=== PATIENT | male | born 1955 | race Caucasian/White ===

== ENCOUNTER 2023-11-19 08:13 | Outpatient (OUT) | payer MEDICARE, SELFPAY ==
[2023-11-19 08:25] LABS: Prostate Specific Antigen Dx 3.23 ng/mL (<=4.00)
== END 2023-11-19 08:14 | disposition home or self-care (01) ==
LOC: LAB 11-21 08:14
PROVIDERS: PCP Urology; Visit Provider Urology
DX: N40.1 Benign prostatic hyperplasia with lower urinary tract symptoms (principal); R97.20 Elevated prostate specific antigen [PSA]; R31.0 Gross hematuria; N35.012 Post-traumatic membranous urethral stricture
CPT/HCPCS: 36415; 84153

== ENCOUNTER 2024-02-27 12:21 | Emergency (ER) | payer MEDICARE, SELFPAY ==
[2024-02-27 12:25] VITALS: BP 141/86; PULSE 79; TEMP 36.4; O2SAT 97; BMI 29.0
--- NOTE | 2024-02-27 12:47 | US_ITS ---
[address] [address] Patient Name: MILY GUADALUPE MRN: [id number] date: 1955 Sex: M Assigned Patient Location: ED.MAIN Current Patient Location: Accession/Order Number: [id number] Exam Date: 02/27/2024 13:00 Report Date: 02/27/2024 14:45 At the request of: CATA ASHTON Procedure: US venous doppler UE RT EXAM: US venous doppler UE RT HISTORY: Abscess versus DVT . Abnormal clinical findings in the area of the right antecubital fossa. COMPARISON: None. TECHNIQUE: Duplex compression ultrasound right arm veins, axillary vein lower neck and upper chest veins. FINDINGS: The deep veins including brachial vein, axillary vein, internal jugular vein lower neck and subclavian vein upper chest demonstrate normal color flow without thrombus or occlusion. The arm veins which are accessible are fully compressible. Superficial cephalic and basilic veins also with normal flow and compressibility, no thrombus or occlusion. Normal flow the radial and ulnar veins in the forearm. In the area of clinical concern medial antecubital area adjacent pelvis cephalic vein is a hypoechoic area without vascularity. Measures 1.5 x 0.7 x 1 cm... Could be small hematoma or abscess. There is a complex mass in the right axilla with both hypoechoic cystic areas and echogenic areas. Measures 3.8 x 2.9 x 3.3 cm. No abnormal vascularity. US/US venous doppler UE RT IMPRESSION: 1. Negative for DVT or superficial thrombus right arm, axilla or upper chest. 2. There is a hypoechoic avascular collection in the area of clinical concern adjacent to the basilic vein. Measures 1.5 cm maximum. Question hematoma or pathologic lymph node. Not typical of abscess but not excluded. 3. Complex mass right axilla 3.8 cm maximum. Question whether this is pathologic lymph node. Correlate clinically. Electronically authenticated by: REID JIMENEZ Date: 02/27/2024 14:45
[2024-02-27 14:25] LABS: Basophils Absolute Auto 0.1 10^3/uL (0.0-0.1); Basophils Percent Auto 0.5 % (0.2-2.0); Hematocrit 45.4 % (42.0-54.0); Hemoglobin 15.5 g/dL (14.0-18.0); Immature Granulocytes Abs Auto 0.26 10^3/uL (0.00-0.03); Immature Granulocytes Pct Auto 1.8 % (0.0-0.5); Lymphocytes Absolute Auto 2.7 10^3/uL (1.2-3.8); Lymphocytes Percent Auto 18.4 % (20.5-60.0); Mean Corpuscular HGB Conc 34.1 g/dL (29.9-35.2); Mean Corpuscular Hemoglobin 30.6 pg (25.9-34.0); Mean Corpuscular Volume 89.5 fL (80.0-94.0); Mean Platelet Volume 8.8 fL (9.5-13.5); Monocytes Absolute Auto 1.1 10^3/uL (0.3-0.8); Monocytes Percent Auto 7.1 % (1.7-12.0); Neutrophils Absolute Auto 10.6 10^3/uL (1.4-6.5); Neutrophils Percent Auto 72.2 % (43.0-75.0); Platelet Count 210 10^3/uL (150-450); Red Blood Count 5.07 10^6/uL (4.70-6.10); Red Cell Distribution Width 12.7 % (11.0-15.0); White Blood Count 14.7 10^3/uL (4.0-11.0)
[2024-02-27 14:36] LABS: Alanine Aminotransferase 23 U/L (16-63); Albumin Globulin Ratio 0.8; Albumin Level 3.1 g/dL (3.4-5.0); Alkaline Phosphatase 61 U/L (46-116); Anion Gap 9.8; Aspartate Amino Transferase 11 U/L (15-37); Bilirubin Total 0.5 mg/dL (0.2-1.0); Calcium 8.7 mg/dL (8.5-10.1); Carbon Dioxide 28.4 mmol/L (21.0-32.0); Chloride 102 mmol/L (98-107); Estimated GFR (African America >60 (>=60); Estimated GFR (Non-African Ame >60 (>=60); Globulin 3.8 g/dL; Glucose 95 mg/dL (74-106); Potassium 4.2 mmol/L (3.5-5.1); Sodium 136 mmol/L (136-145); Total Protein 6.9 g/dL (6.4-8.2)
--- NOTE | 2024-02-27 14:52 | XR_ITS ---
The [address] [address] Patient Name: MILY GUADALUPE MRN: [id number] date: 1955 Sex: M Assigned Patient Location: ER Current Patient Location: ER Accession/Order Number: [id number] Exam Date: 02/27/2024 15:02 Report Date: 02/27/2024 15:32 At the request of: CATA ASHTON Procedure: XR chest 1V EXAMINATION: XR chest 1V HISTORY: Right axillary adenopathy COMPARISON: No relevant comparison available. FINDINGS: LUNGS: No significant pulmonary parenchymal abnormalities. VASCULATURE: No increased pulmonary vasculature. PLEURA: No pneumothorax, effusion, or pleural thickening. CARDIAC: No cardiomegaly or cardiac silhouette abnormality. MEDIASTINUM: No visible mass or adenopathy. BONES: No fracture or visible bone lesion. OTHER: Negative. XR/XR chest 1V IMPRESSION: 1. Clear lungs. 2. No appreciable bone or soft tissue abnormality to account for patient's symptoms. Electronically authenticated by: SANDRA ELLIS Date: 02/27/2024 15:32
--- NOTE | 2024-02-27 16:36 | ED.SKABFB1 ---
HPI - Skin/Abscess/Foreign Bdy General Chief complaint: Skin/Abscess/Foreign Body Stated complaint: UPPER EXTRENITY INJURY Time Seen by Provider: 02/27/24 12:47 History of Present Illness HPI narrative: This patient came to emergency room after being seen by his primary care practitioner in the office. Historically this patient had a minor injury to his arm about 10 days ago. He was started on Keflex for what was felt to be a soft tissue infectious process. He finishes course of therapy and the area of redness pain and swelling in his antecubital fossa is getting worse. His practitioner sent him here for further evaluation. He was given a prescription for another course of antibiotics but really did not start it quite yet. He has not been running a fever at home. He did not notice any bleeding or any purulent drainage or discharge from the area but in the antecubital fossa the area of redness and swelling is getting substantially larger. He does have a history of some prostatic hypertrophy but no cancer. He has no other medical problems and is not on any other medications. He is not a diabetic. He has no previous history of abscesses or MRSA infections. Related Data Home Medications ?Medication ?Instructions ?Recorded ?Confirmed finasteride 5 mg tablet 5 mg PO DAILY 02/27/24 02/27/24 sulfamethoxazole 800 1 tab PO BID 02/27/24 02/27/24 mg-trimethoprim 160 mg tablet Allergies Allergy/AdvReac Type Severity Reaction Status Date / Time No Known Drug Allergies Allergy Verified 02/27/24 12:24 Exam Narrative Exam Narrative: Pleasant awake alert signs are stable skin is warm and dry and mucous is are moist and pink there is no pallor or diaphoresis or evidence of anemia. Problem focused examination shows a area of tenderness and swelling erythema approximately 3 x 4 cm in the medial aspect of the antecubital fossa and the distal upper arm. Pulses to that distal extremity are normal and there is no lymphedema or lymphangitis. I palpated his axillary area x 2 and could not palpate any adenitis but he was slightly tender to deep palpation in the axilla. I cannot palpate any adenitis in the supraclavicular or the cervical area. His joint is nontender and there is no joint effusion. There is no pain in the shoulder area. The other opposite extremity is asymptomatic and he has no respiratory or cardiac or chest complaints. Constitutional Vital Signs, click to edit/add: Last Vital Signs Temp 97.6 F 02/27/24 12:25 Pulse 79 02/27/24 12:25 Resp 20 02/27/24 12:25 BP 141/86 02/27/24 12:25 Pulse Ox 97 02/27/24 12:25 O2 Del Method Room Air 02/27/24 12:25 Course Vital Signs Vital signs: Vital Signs Temperature 97.6 F 02/27/24 12:25 Pulse Rate 79 02/27/24 12:25 Respiratory Rate 20 02/27/24 12:25 Blood Pressure 141/86 02/27/24 12:25 Pulse Oximetry 97 02/27/24 12:25 Oxygen Delivery Method Room Air 02/27/24 12:25 Temperature 97.6 F 02/27/24 12:25 Pulse Rate 79 02/27/24 12:25 Respiratory Rate 20 02/27/24 12:25 Blood Pressure 141/86 02/27/24 12:25 Pulse Oximetry 97 02/27/24 12:25 Oxygen Delivery Method Room Air 02/27/24 12:25 MDM - Skin/Abscess/Foreign Bdy MDM Narrative Medical decision making narrative: This patient presents with worsening swollen area in his right antecubital fossa after taking 10 days of antibiotics. An ultrasound was done to rule out DVT and get a better on explanation and understanding if this is in fact an abscess. The report from the radiologist suggest negative for DVT or superficial thrombus. However there is an area in the antecubital fossa adjacent to the base iliac vein measuring 1.5 cm that is a hypoechoic avascular collection. It is questionable hematoma or lymph node or abscess but not a typical abscess formation. There is additionally a complex mass in the right axilla 3.8 cm. Question whether this is a pathological lymph node. I spoke with our on-call general surgeon and he felt this patient should be transferred to a tertiary center where there is infectious disease, orthopedics and possible vascular surgery. I spoke with the [facility]ist and [facility] in [place]. He wants us to speak to a vascular surgeon. I spoke with Dr. Alvaro Kenyon, vascular surgeon, he said he will be glad to participate in the patient's care but he would like the patient admitted to the hospitalist service. We will recontact the hospitalist and arrange transfer to that facility Lab Data Labs: Lab Results 02/27/24 Range/Units 14:00 WBC 14.7 H (4.0-11.0) 10^3/uL RBC 5.07 (4.70-6.10) 10^6/uL Hgb 15.5 (14.0-18.0) g/dL Hct 45.4 (42.0-54.0) % MCV 89.5 (80.0-94.0) fL MCH 30.6 (25.9-34.0) pg MCHC 34.1 (29.9-35.2) g/dL RDW 12.7 (11.0-15.0) % Plt Count 210 (150-450) 10^3/uL MPV 8.8 L (9.5-13.5) fL Neut % (Auto) 72.2 (43.0-75.0) % Lymph % (Auto) 18.4 L (20.5-60.0) % Cass % (Auto) 7.1 (1.7-12.0) % Eos % (Auto) 0.0 L (0.9-7.0) % Baso % (Auto) 0.5 (0.2-2.0) % Neut # (Auto) 10.6 H (1.4-6.5) 10^3/uL Lymph # (Auto) 2.7 (1.2-3.8) 10^3/uL Cass # (Auto) 1.1 H (0.3-0.8) 10^3/uL Eos # (Auto) 0.0 (0.0-0.7) 10^3/uL Baso # (Auto) 0.1 (0.0-0.1) 10^3/uL Abs Immat Gran (auto) 0.26 H (0.00-0.03) 10^3/uL Imm/Tot Granulo (auto) 1.8 H (0.0-0.5) % Sodium 136 (136-145) mmol/L Potassium 4.2 (3.5-5.1) mmol/L Chloride 102 (98-107) mmol/L Carbon Dioxide 28.4 (21.0-32.0) mmol/L Anion Gap 9.8 BUN 11.0 (7.0-18.0) mg/dL Creatinine 1.10 (0.70-1.30) mg/dL Est GFR ( Amer) >60 (>=60) Est GFR (Non-Af Amer) >60 (>=60) BUN/Creatinine Ratio 10.0 Glucose 95 (74-106) mg/dL Calcium 8.7 (8.5-10.1) mg/dL Total Bilirubin 0.5 (0.2-1.0) mg/dL AST 11 L (15-37) U/L ALT 23 (16-63) U/L Alkaline Phosphatase 61 (46-116) U/L Total Protein 6.9 (6.4-8.2) g/dL Albumin 3.1 L (3.4-5.0) g/dL Globulin 3.8 g/dL Albumin/Globulin Ratio 0.8 Discharge Plan Discharge Chief Complaint: Skin/Abscess/Foreign Body Clinical Impression: Abscess of skin or subcutaneous tissue Patient Disposition: [facility] Time of Disposition Decision: 16:41 Condition: Fair Mode of Transportation: Private Vehicle Prescriptions / Home Meds: No Action finasteride 5 mg tablet 5 mg PO DAILY sulfamethoxazole-trimethoprim 800-160 mg tablet 1 tab PO BID Print Language: Macedonian Referrals: QIANA ANDRE [Primary Care Provider] - 1 week
== END 2024-02-27 17:46 | disposition short-term general hospital (02) ==
PROVIDERS: Emergency Provider Emergency Medicine Emergency Medical Services; PCP Nurse Practitioner
DX: L02.413 Cutaneous abscess of right upper limb (principal)
CPT/HCPCS: 36415; 71045; 80053; 85025; 93971; 99285

== ENCOUNTER 2024-04-17 15:02 | Outpatient (OUT) | payer MEDICARE, SELFPAY ==
[2024-04-17 16:24] LABS: Prostate Specific Antigen Dx 3.68 ng/mL (<=4.00)
== END 2024-04-17 15:03 | disposition home or self-care (01) ==
LOC: LAB 15:06
PROVIDERS: PCP Nurse Practitioner; Visit Provider Nurse Practitioner Family
DX: R97.20 Elevated prostate specific antigen [PSA] (principal)
CPT/HCPCS: 36415; 84153

== ENCOUNTER 2024-05-17 08:28 | Outpatient (OUT) | payer MEDICARE, SELFPAY ==
--- NOTE | 2024-05-17 08:30 | US_ITS ---
[address] [address] Patient Name: MILY GUADALUPE MRN: [id number] date: 1955 Sex: M Assigned Patient Location: US Current Patient Location: Accession/Order Number: [id number] Exam Date: 05/17/2024 08:31 Report Date: 05/21/2024 07:12 At the request of: QIANA ANDRE Procedure: US thyroid EXAMINATION: US thyroid HISTORY: Right Thyroid Nodule COMPARISON: No relevant comparison available. TECHNIQUE: Sonographic images of the thyroid gland were obtained. FINDINGS: The right thyroid lobe measures 6.1 x 2.5 x 2.7 cm. Heterogeneous echotexture with 2 focal nodules. The thyroid isthmus measures 3.5 mm. No focal nodule The left thyroid lobe measures 4.8 x 1.9 x 1.1 cm. Heterogeneous echotexture with 3 punctate nodules measuring maximum of 6 mm in size The 2 most suspicious nodules: Nodule 1: Right lower lobe. 3.0 x 1.8 x 2.1 cm. Solid, mixed hypo and hyperechoic, wide, smooth margins, macrocalcifications. TR 4 Nodule 2: Right thyroid lobe. 1.7 x 1.1 x 1.1 cm. Solid, hypoechoic, wide, smooth margins, no calcifications. TR 4 US/US thyroid IMPRESSION: 2 right thyroid TR 4 nodules measuring 3.0 and 1.7 cm in size TI-RADS: The [employer] TI-RADS committee's white paper recommendations for thyroid lesions classified as TR4 (moderately suspicious) are listed below: > 1.0 cm. Follow-up ultrasound in 1, 2, 3, and 5 years. > 1.5 cm. FNA. J. Am Cindy Radiol 2017;14:[id number]. Electronically authenticated by: LUIS HALL Date: 05/21/2024 07:12
--- OUTSIDE RECORDS SUMMARY | 2024-05-17 08:31 | XMS_ITS | CCD ---
Author Organization [facility] Care Team Providers Care Invisible Braces Orthodontist Name Role Phone FUAD SUNSHINE Primary Care Physician [phone] MD Fuad Sunshine Primary Care Provider KARISHMA Riggins Attending Provider OLIVA ., DR FUAD Stallworth Primary Care Unavailable PARKER JR ., DR ANNETTE Vidal Attending Unavaila ble PARKER JR ., DR ANNETTE Vidal Consulting Unavaila ble PARKER JR ., DR ANNETTE Vidal Admitting Unavaila ble SUNSHINE ., DR FUAD Stallworth Primary Care Unavailable PARKER JR ., DR ANNETTE Vidal Admitting Unavaila ble PARKER JR ., DR ANNETTE Vidal Attending Unavaila ble PARKER JR ., DR ANNETTE Vidal Consulting Unavaila ble SUNSHINE ., DR FUAD Stallworth Primary Care Unavailable SUNSHINE ., DR FUAD Stallworth Admitting Unavailable SUNSHINE ., DR FUAD Stallworth Attending Unavailable SUNSHINE ., DR FUAD Stallworth Consulting Unavailable SUNSHINE ., DR FUAD Stallworth Primary Care Unavailable SUNSHINE ., DR FUAD Stallworth Admitting Unavailable SUNSHINE ., DR FUAD Stallworth Attending Unavailable SUNSHINE ., DR FUAD Stallworth Consulting Unavailable FUAD SUNSHINE Primary Care Physician [phone] MD Fuad Sunshine Primary Care Provider MD Janene Crump Attending Provider [phone] Ganga, Anjelica Unavailable Rashida Cabezas Primary Care Physician [facility] Marika Attending Provider NON STAFF Primary Care Provider UnavailDO Antony Veronica Admit Provider DO Antony Thompson Attending Provider DO Ata Celestin Other Provider [phone] Jocelynn BUMBOATER-C Rashida Mcdonough Primary Care Provider MD Maria Ines Hanley Attending Provider DO Enoch Han Referring Provider MD Jered Gomes Attending Provider [phone] Kassidy Cunningham Attending Unavailable Orzech, Marika X Attending Unavailable Jocelynn, Rashida Vidal Admitting Unavailable Jocelynn, Rashida Vidal Attending Unavailable Jocelynn, Rashida L Attending Unavailable MAIDA, ADRIANA Perez Attending Unavailable Jocelynn, Rashida L Attending Unavailable Jocelynn, Rashida Vidal Attending Unavailable Jocelynn, Rashida Vidal Attending Unavailable Jocelynn, Rashida Vidal Attending Unavailable Orzech, Marika X Attending Unavailable GOMES V, JERED Attending Unavailable GOMES V, JERED Attending Unavailable Orzech, Marika Admitting Unavailable Orzech, Marika Attending Unavailable NON STAFF Primary Care Unavailable Jocelynn, Rashida Mcdonough Primary Care Unavailable Enoch Han Referring Unavailable Maria Ines Hanley Admitting Unavailable Talon, Maria Ines Attending Unavailable ThompsonAntony Admitting Unavailable Antony Thompson Attending Unavailable Jocelynn, Rashida Mcdonough Primary Care Unavailable Ata Celestin Consulting Unavailable Jered Gomes Attending Unavailable JocelynnRashida Primary Care Unavailable Gomes Jered Admitting Unavailable Jered Gomes Attending Unavailable JocelynnRashida Primary Care Unavailable Jered Gomes Admitting Unavailable Allergies Allergy Classification Reported Allergen(s) Allergy Type Date of Onset Reaction(s) Facility (1 source) No Known Medication Allergies; Translations: [No Known Medication Allergies] Propensity to adverse reactions (disorder) [facility] Repository Medications Current Medications Medication Drug Class(es) Dates Sig (Normalized) Sig (Original) acetaminophen 325 mg / HYDROcodone bitartrate 5 mg oral tablet (1 source) Opioid Agonist Start: 04-20-2024 take 1 tablet by mouth every six hours Hydrocodone-Aceta minophen Active 1 TAB PO Q6H 20 April 20, 2024 Start: 04-20-2024 take 1 tablet by tessa th every six hours Hydrocodone-Acetaminophen Active 1 TAB P O Q6H 18 12April 20, 2024 acetaminophen 250 mg / ibuprofen 125 mg oral tablet (3 sources) Nonsteroidal Anti-inflammatory Drug Start: 02-26-2024 take 1 tablet by mouth every six hours Ibuprofen-Acetaminophen Active 1 TAB PO Every 6 hours February 26, 2024 12:00am famotidine 20 mg oral tablet (8 sources) Histamine-2 Receptor Antagonist Start: 12-31-2022 Pepcid Active finasteride 5 mg oral tablet (10 sources) 5-alpha Reductase Inhibitor Start: 07-30-2021 take 1 tablet by mouth once daily finasteride 5 mg Tab 5 mg = 1 tab(s), Oral, Daily, # 30 tab(s), Refills(s) 11, Pharmacy: [facility] #[id number], 185, cm, 02/09/23 16:48:00 EDT, Height/Length Dosing, 101, kg, 07/01/23 15:03:00 EST, Weight Dosing Start Date: 07/18/23 Status: Ordered gabapentin 100 mg oral capsule (1 source) Anti-epileptic Agent Start: 03-26-2019 take 1 capsule by mouth three times daily gabapentin 100 mg Cap 100 mg = 1 cap(s), Oral, TID Start Date: 03/26/19 Status: Ordered Multi Vitamin+ (3 sources) Start: 11-24-2022 Multi Vitamin+ Start Date: 11/24/22 Status: Ordered Omeprazole (2 sources) Proton Pump Inhibitor Start: 06-03-2021 omeprazole Oral, Daily, Refills(s) 0 Start Date: 06/03/21 Status: Ordered Gregorio cpap machine supplies: head gear, mask, tubing and filters (2 sources) Start: 02-09-2023 Gregorio cpap machine supplies: head gear, mask, tubing and filters Gregorio cpap machine supplies: head gear, mask, tubing and filters, See Instructions, 1 EA, 1, [employer]orio cpap machine supplies: head gear, mask, tubing and filters, Supply Start Date: 02/09/23 Status: Ordered tamsulosin hydrochloride 0.4 mg oral capsule (11 sources) alpha-Adrenergic Brent Start: 06-07-2018 take 2 capsules by mouth once daily Flomax 0.4 mg Cap 0.8 mg = 2 cap(s), Oral, Daily, # 60 cap(s), Refills(s) 11, Pharmacy: [facility] #[id number], 185, cm, 02/09/23 16:48:00 EDT, Height/Length Dosing, 101, kg, 07/01/23 15:03:00 EST, Weight Dosing Start Date: 07/18/23 Status: Ordered Start: 06-07-2018 take 1 capsule by mo uth once daily at bedtime Tamsulosin (Flomax) 0.4 mg capsule Active 0.4 MG PO Daily at bedtime June 07, 2018 1:00am Completed/Discontinued Medications Medication Drug Class(es) Dates Sig (Normalized) Sig (Original) cephalexin 500 mg oral capsule (3 sources) Cephalosporin Antibacterial Start: 02-26-2024 End: 03-01-2024 take 500 mg by mouth four times daily Cephalexin Discontinued 500 MG PO Four times daily February 26, 2024 12:00am March 01, 2024 1:22pm ciprofloxacin 500 mg oral tablet (6 sources) Quinolone Antimicrobial Start: 06-07-2018 End: 12-31-2022 take 1 tablet by mouth once daily Ciprofloxacin Hcl (Cipro) 500 mg tablet Discontinued 500 MG PO Daily June 07, 2018 1:00am December 31, 2022 9:24am raNITIdine 150 mg oral tablet (6 sources) Histamine-2 Receptor Antagonist Start: 06-07-2018 End: 12-31-2022 take 1 tablet by mouth at bedtime Ranitidine Hcl (Zantac) 150 mg Tablet Discontinued 150 MG PO Bedtime June 07, 2018 1:00am December 31, 2022 9:24am sulfamethoxazole 800 mg / trimethoprim 160 mg oral tablet (6 sources) Dihydrofolate Reductase Inhibitor Antibacterial, Sulfonamide Antimicrobial Start: 02-26-2024 End: 03-29-2024 take 1 tablet by mouth twice daily Sulfamethoxazole-T rimethoprim (Bactrim Ds) 800-160 mg tablet Discontinued 1 TAB PO Twice daily 20 05March 01, 2024 2:49pm March 29, 2024 2:00pm terbinafine 250 mg oral tablet (6 sources) Allylamine Antifungal Start: 06-07-2018 End: 12-31-2022 take 250 mg by mouth once daily Terbinafine Hcl Discontinued 250 MG PO Daily June 07, 2018 1:00am December 31, 2022 9:24am Problems Active Problems Problem Classification Problem Date Documented Date Episodic/Chronic Administrative/soci al admission (6 sources) Patient encounter status; Translations: [Other specified counseling] 08-30-2024 Episodic Chronic obstructive pulmonary disease and bronchiectasis (2 sources) Bronchitis 07-01-2023 Episodic Disorders of lipid metabolism (4 sources) Pure hypercholesterolemia, unspecified; Translations: [PURE HYPERCHOLESTEROLEMIA UNSPEC] Onset: 2 Chronic Genitourinary symptoms and ill-defined conditions (19 sources) Blood in urine; Translations: [Gross hematuria] Onset: 2 Episodic Hyperplasia of prostate (17 sources) Benign prostatic hypertrophy with outflow obstruction; Translations: [Benign prostatic hyperplasia with lower urinary tract symptoms] Onset: 2 Chronic Lymphadenitis (1 source) Localized enlarged lymph nodes; Translations: [Localized enlarged lymph nodes] Onset: 4 Episodic Malaise and fatigue (1 source) Other fatigue; Translations: [OTHER FATIGUE] Onset: 3 Episodic Non-Hodgkin`s lymphoma (7 sources) Non-Hodgkin's lymphoma of skin; Translations: [Unspecified B-cell lymphoma, extranodal and solid organ sites] Onset: 4 03-29-2024 Chronic Other aftercare (2 sources) Surgical follow-up; Translations: [Encounter for removal of sutures] 04-17-2024 Episodic Other aftercare (2 sources) Encounter for removal of sutures; Translations: [Encounter for removal of sutures] 03-19-2024 Episodic Other diseases of bladder and urethra (8 sources) Traumatic membranous urethral stricture; Translations: [Post-traumatic membranous urethral stricture] Onset: 2 Episodic Other diseases of kidney and ureters (1 source) Urinary tract obstruction; Translations: [Other obstructive and reflux uropathy] Onset: 2 Episodic Other ear and sense organ disorders (1 source) Impacted cerumen, right ear Episodic Other lower respiratory disease (2 sources) Cough 07-21-2023 Episodic Other male genital disorders (3 sources) Male erectile dysfunction, unspecified; Translations: [Erectile dysfunction] Onset: 4 Chronic Other male genital disorders (4 sources) Disorder of prostate, unspecified; Translations: [DISORDER OF PROSTATE UNSPECIFIED] Onset: 3 Episodic Other nervous system disorders (1 source) Acute postoperative pain; Translations: [Other acute postprocedural pain] 04-20-2024 Episodic Other nervous system disorders (1 source) Other acute postprocedural pain; Translations: [Other acute postprocedural pain] Onset: 4 Episodic Other skin disorders (3 sources) Mass of upper limb; Translations: [Localized swelling, mass and lump, unspecified upper limb] 02-27-2024 Episodic Other skin disorders (4 sources) Localized swelling, mass and lump, unspecified upper limb; Translations: [Localized superficial swelling, mass, or lump] Onset: 4 03-01-2024 Episodic Other skin disorders (2 sources) History of skin and/or subcutaneous tissue disease; Translations: [Personal history of diseases of the skin and subcutaneous tissue] 03-30-2024 Episodic Other skin disorders (4 sources) Personal history of diseases of the skin and subcutaneous tissue; Translations: [Personal history of diseases of skin and subcutaneous tissue] 03-29-2024 Episodic Other upper respiratory infections (2 sources) Sinusitis 07-01-2023 Chronic Residual codes; unclassified (2 sources) Sleep apnea 03-06-2019 Chronic Residual codes; unclassified (2 sources) Obstructive sleep apnea syndrome 02-09-2023 Chronic Residual codes; unclassified (2 sources) Postprocedural state finding; Translations: [Other specified postprocedural states] 03-19-2024 Episodic Residual codes; unclassified (2 sources) Other specified postprocedural states; Translations: [Other postprocedural status] 03-19-2024 Episodic Residual codes; unclassified (1 source) Past history of procedure 03-02-2024 Episod ic Skin and subcutaneous tissue infections (14 sources) Abscess of right upper limb; Translations: [Cutaneous abscess of right upper limb] Onset: 4 03-01-2024 Episodic Unclassified (4 sources) Finding of sensation of bladder 05-28-2019 Viral infection (2 sources) Herpes zoster 02-09-2023 Episodic Past or Other Problems Problem Classification Problem Date Documented Da te Episodic/Chronic Other gastrointestinal disorders (4 sources) Urgent desire for stool Resolved: 03-26-2019 03-26-2019 Episodic Other screening for suspected conditions (not mental disorders or infectious disease) (14 sources) Raised prostate specific antigen; Translations: [Elevated prostate specific antigen [PSA]] Onset: 11-27-2021 Episodic Results Test Name Value Interpretation Reference Range Facility Ambulatory Visit Summaryon 0 04-24-2024 Ambulatory Visit Summary Ambulatory Visit Summary MILY GUADALUPE :1955 Visit Date:04/24/2024 Ambulatory Visit Instructions Your Diagnosis Elevated PSA BPH with urinary obstruction Feeling of incomplete bladder emptying Urethral stricture in male Erectile dysfunction Gross hematuria Your Care Team Attending Physician - MERRY Fisher APRN, Marika Mao Primary Care Physician - Rashida Gayle This Is Your Medications List Contact prescribing physician if questions or concerns Misc Prescription (Gregorio cpap machine supplies: head gear, mask, tubing and filters) famotidine (famotidine 20 mg Tab) finasteride (finasteride 5 mg Tab) multivitamin (Multi Vitamin+) tamsulosin (Flomax 0.4 mg Cap) Procedures Performed Colonoscopy (01/13/2023), Cystoscopy (06/02/2020), TRUS - Transrectal ultrasonography (06/07/2018), Cystoscopy (01/05/2016), Transrectal biopsy of prostate using ultrasound (US) guidance (03/08/2011), Tonsillectomy. Discharge Vitals Heart Rate (Peripheral) 77 Respiratory Rate 16 Blood Pressure 126/78 Height 185 cm Height 73 in Weight 100 kg Weight 220 lb BMI 29.22 What to do next You Need to Schedule the Following Appointments Follow Up with Octavio EATON, Kassidy Merchant, URL, URO When: Comments: 6 mos w/ PSA Where: Medications What How Much When Why Instructions Unchanged famotidine (famotidine 20 mg Tab) 1 Tablets By Mouth Every day 20 Unknown, Oral Contact prescribing physician if questions or concerns Unchanged finasteride (finasteride 5 mg Tab) 1 Tablets By Mouth Every day Contact prescribing physician if questions or concerns Unchanged Misc Prescription (Gregorio cpap machine supplies: head gear, mask, tubing and filters) See instructions Herpes zoster BMI 29.0-29.9,adult Non-smoker Gregorio cpap machine supplies: head gear, mask, tubing and filters Contact prescribing physician if questions or concerns Unchanged multivitamin (Multi Vitamin+) Contact prescribing physician if questions or concerns Unchanged tamsulosin (Flomax 0.4 mg Cap) 2 Capsules By Mouth Every day Contact prescribing physician if questions or concerns Allergies No Known Allergies No Known Medication Allergies Problems Ongoing - Any problem that you are currently receiving treatment for. Abscess of arm BPH with urinary obstruction Bronchitis Cellulitis of right elbow Cough Elevated PSA Erectile dysfunction Feeling of incomplete bladder emptying Frequency of urination Herpes zoster CAROL on CPAP Sinusitis Status post incision and drainage Urethral stricture in male Urinary urgency Weak urine stream Historical - Any problem that you are no longer receiving treatment for. Defecation urgency Patient Survey You may receive a survey via text or e-mail asking about your office visit. Please share your experience with us by completing your survey. We appreciate your feedback and thank you for choosing us for your care. Education Materials Benign Prostatic Hyperplasia Benign prostatic hyperplasia (BPH) is an enlarged prostate gland that is caused by the normal aging process. The prostate may get bigger as a man gets older. The condition is not caused by cancer. The prostate is a walnut-sized gland that is involved in the production of semen. It is located in front of the rectum and below the bladder. The bladder stores urine. The urethra carries stored urine out of the body. An enlarged prostate can press on the urethra. This can make it harder to pass urine. The buildup of urine in the bladder can cause infection. Back pressure and infection may progress to bladder damage and kidney (renal) failure. What are the causes? This condition is part of the normal aging process. However, not all men develop problems from this condition. If the prostate enlarges away from the urethra, urine flow will not be blocked. If it enlarges toward the urethra and compresses it, there will be problems passing urine. What increases the risk? This condition is more likely to develop in men older than 50 years. What are the signs or symptoms? Symptoms of this condition include: ? Getting up often during the night to urinate. ? Needing to urinate frequently during the day. ? Difficulty starting urine flow. ? Decrease in size and strength of your urine stream. ? Leaking (dribbling) after urinating. ? Inability to pass urine. This needs immediate treatment. ? Inability to completely empty your bladder. ? Pain when you pass urine. This is more common if there is also an infection. ? Urinary tract infection (UTI). How is this diagnosed? This condition is diagnosed based on your medical history, a physical exam, and your symptoms. Tests will also be done, such as: ? A post-void bladder scan. This measures any amount of urine that may remain in your bladder after you finish urinating. ? A digital rectal exam. In a rect (more content not included)... Normal [facility] Urology Office/Clinic Noteon 04-24-2024 Urology Office/Clinic Note Urology Office/Clinic Note Chief Complaint 3 month follow up with PSA HPI Staff 68 yr old here for 3 mth f/u w/ PSA Previous DX: feeling of incomplete bladder emptying, recurrent UTI, OAB and H/O pyelonephritis. * finasteride 5mg qd, tamsulosin 0.4 mg 2 tabs qd current PSA: 04/17/24-3.68, previous PSA 11/19/23- 3.23, PVR: 187 ml Dysuria: a little pain when starting to urinate off and on Incomplete bladder emptying: feels like he empties but an hour-2 hours later he needs to go again Hematuria: denies Frequency: once every 1-2 hours Urgency: sometimes Nocturia: once a night Stream: denies hesitancy, has a weak sometimes and sometimes steady stream Leaking: denies Post void dripping: denies Wearing pads/ Depends: denies Urge incontinence: denies Stress incontinence: denies Incontinence without Sensory Awareness: denies Abdominal pain: denies Flank pain: lower back pain right, off and on Sexual complaints: _ History of Present Illness I have reviewed and verified the staff HPI to be accurate for this encounter. Portions of this record may have been created with voice recognition artificial intelligence software, specifically Six3, [employer]cape and or [employer]urface. Substitutions may have occurred due to the inherent limitations of voice recognition and artificial intelligence software. Review of Systems PHQ Score Initial Depression Screen Score: 0 SCORE Physical Exam Vitals & Measurements HR: 77(Peripheral) RR: 16 BP: 126/78 HT: 73 in HT: 185 cm WT: 100 kg WT: 220 lb BMI: 29.22 General: Well developed, well nourished, in no acute distress. Assessment/Plan KML pt 1. Elevated PSA (R97.20: Elevated prostate specific antigen [PSA]) Great grandparents w/ prostate CA, youngest brother had prostatectomy d/t prostate CA. PSA: 12/15/18 - 10.8 03/15/19 - 9.10 & 11% 05/10/20 - 3.20 & 14.7% 05/26/21 - 2.80 (5.6) 11/27/21 - 2.37 (4.74) 10/02/22 - 2.51 (5.02) 11/19/23 - 3.23 (6.46) 04/17/24 - 3.68 (7.36) MRI prostate 01/09/2024 without evidence of clinically significant prostate cancer, BPH, enlarged bilateral external iliac lymph nodes measuring 1.5 cm in short axis. Prostate volume 87 mL PET 04/12/2024 for workup for CLL - no notable uptake in prostate. However, avid uptake in lymph nodes seen above and below the diaphragm consistent with lymphadenitis involvement, abnormal activity involving the right upper extremity consistent with patient's history of abscess, avid right lobe thyroid nodule. KAMI 11/29/2023 benign Negative BX in 2017 and 2010 Prostate size 70gms (from Op note 06/2018) Discussed most recent PSA which does continue to rise slightly. Recent MRI negative, recent PET scan also without uptake in the prostate. However, patient did have recent inguinal lymph node biopsy, will follow these results. We discussed continued possibility of prostate CA, which I presented the possibility of repeat biopsy possibly transperineal he versus continued monitoring of PSA. Patient opts to continue to monitor PSA -Follow-up 6 months with KML w/ PSA -Obtain inguinal lymph node biopsy results from [facility] [place] Ordered: Body Mass Index (BMI) documented 3008F Current tobacco non-user 1036F Depression Screening Negative 3352F Influenza immunization status assessed 1030F Medication list documented in medical record 1159F Most recent diastolic blood pressure <80 mm Hg 3078F Patient screen for fall risk: no falls in last year or 1 fall with no injury in last year 1101F PSA Total Review of all meds by a prescribing practitioner or clinical pharmacist documented in EHR 1160F Systolic BP <130 mm Hg (Most Recent) 3074F 2. BPH with urinary obstruction (N40.1: Benign prostatic hyperplasia with lower urinary tract symptoms) s/p cystoscopy/urethral dilation by DLS 06/02/2020-moderate hypertrophy with mild trabeculation IPSS 15 (13), moderate symptoms of BPH. Patient states that he is overall satisfied with his urinary symptoms at this time, he does report intermittent frequency and urgency depending on his fluid intake. He denies any recently worsening of urinary symptoms, denies any symptoms of prostatitis at this time. PVR today 187 mL UA today without any signs of blood or infection. Patient denies any symptoms of urinary infection or episode of gross hematuria since prior office visit. He is currently taking tamsulosin 0.8 mg, finasteride 5 mg daily. He continues to tolerate these well without side effects. He does not wish to make any changes at this time. Continue current doses, call for refills. -Continue tamsulosin and finasteride Ordered: 01951 Measure Post Void residual urine and/or bladder capacity by US- non-imaging Body Mass Index (BMI) documented 3008F Current tobacco non-user 1036F Depression Screening Negative 3352F Influenza immunization status assessed 1030F Medication list documented in medical record 1159F Most recent diastolic blood pressure (more content not included)... Normal [facility] Comment on above: Result Comment: Elec tronically Signed By: MERRY Fisher APRN, [place] X\.br\Date and Time Signed: 04/24/24 08:58 EDT Andrea 04-20-2024 L Specimen: [id number] Received: 04/20/24 Status: KAEL Ayala Num: [id number] Spec Type: Surgical Subm Dr: Jered Gomes MD Tissues: A Lymph Node - Biopsy (Needle or Incisional) (R INGUINAL LYMPH NODE) Procedures: HE/8, Gross/Micro L4, BCL-2, BCL-6, CD10, CD138, CD20, CD21, CD23, CD3, CD30, CD43, CD5, CD56, CD68, CYCLIN D1, Ki-67, PAX5 Comments: LYMPHOMA WORKUP PER DR GOMES Age/ Patient Sex Location Account Attending Physician Mily Guadalupe 68/M [place] [id number] Jered Gomes MD SPEC NUM: [id number] RECD: 04/20/24 STATUS: KAEL AYALA NUM: [id number] [place]: 04/20/[address]: Jered Gomes MD ENTERED: 04/20/24 [facility] DR: SPEC TYPE: Surgical DEPT: S ENTERED BY: [id number] RECV BY: [id number] ORDERED: HE/8, Gross/Micro L4, BCL-2, BCL-6, CD10, CD138, CD20, CD21, CD23, CD3, CD30, CD43, CD5, CD56, CD68, CYCLIN D1, Ki-67, PAX5 COMMENTS: LYMPHOMA WORKUP PER DR GOMES ORDERED: HE/8, Gross/Micro L4, BCL-2, BCL-6, CD10, CD138, CD20, CD21, CD23, CD3, CD30, CD43, CD5, CD56, CD68, CYCLIN D1, Ki-67, PAX5 COMMENTS: LYMPHOMA WORKUP PER DR GOMES Supplemental Report Addendum 3 Entered: 05/08/24 Supplemental for findings of summary of results report from [facility] -Please also see the findings of all 3 previous supplementals already attached Addendum Signed (signature on file) Koffi-Gavin Kaur MD 05/08/24 1409 Addendum 2 Entered: 05/03/24 #1, Supplemental for findings of cytogenetic analysis report from [facility] Specimen: [id number] Received: 04/20/24 Status: KAEL Ayala Num: [id number] Spec Type: Surgical Subm Dr: Jered Gomes MD Tissues: A Lymph Node - Biopsy (Needle or Incisional) (R INGUINAL LYMPH NODE) Procedures: HE/8, Gross/Micro L4, BCL-2, BCL-6, CD10, CD138, CD20, CD21, CD23, CD3, CD30, CD43, CD5, CD56, CD68, CYCLIN D1, Ki-67, PAX5 Comments: LYMPHOMA WORKUP PER DR GOMES Patient: Mily Guadalupe [id number] (Continued) Specimen: [id number] Received: 04/20/24 (Continued) Supplemental Report (Continued) Signed (signature on file) Teo Kaur MD 04/26/24 1803 Specimen: [id number] Received: 04/20/24 Status: KAEL Ayala Num: [id number] Spec Type: Surgical Subm Dr: Jered Gomes MD Tissues: A Lymph Node - Biopsy (Needle or Incisional) (R INGUINAL LYMPH NODE) Procedures: HE/8, Gross/Micro L4, BCL-2, BCL-6, CD10, CD138, CD20, CD21, CD23, CD3, CD30, CD43, CD5, CD56, CD68, CYCLIN D1, Ki-67, PAX5 Comments: LYMPHOMA WORKUP PER DR GOMES Patient: Mily Guadalupe [id number] (Continued) Specimen: [id number] Received: 04/20/24 (Continued) Supplemental Report (Continued) RESULT: -Insufficient metaphases available for chromosome analysis -No results #2, Supplemental for findings of FISH report from [facility] analysis RESULT -Abnormal CLL FISH panel -Trisomy for chromosome 12 Addendum Signed (signature on file) Teo Kaur MD 05/03/24900 Addendum 1 Entered: 05/02/24 Supplemental for findings of Flow cytometry report from [facility] -Abnormal / monotypic CD5 positive B-cell population (66% of sample) Addendum Signed (signature on file)Darius Kaur MD 05/02/2446 Pathological Diagnosis Right inguinal lymph node, excisional biopsies: -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 Normal [facility] Capillary blood glucose abraham urement by glucometer (mass/volume)Ordered By: Maria Ines Hanley on 04-04-2024 Glucose [Mass/Vol] 101 mg/dL Normal [facility] Comment on above: Random Glucose Refer ence Range is dependent on time and content of last meal. Glucose of more than 200 mg/dL in a nonstressed, ambulatory subject supports the diagnosis of Diabetes Mellitus. Result Comment: [place] Glucose Reference Range is dependent on time and content of last meal. Glucose of more than 200 mg/dL in a nonstressed, ambulatory subject supports the diagnosis of Diabetes Mellitus. PERFORMED BY: [place] [address] PATHOLOGIST PAINTING MACHINE OPERATOR WILLI VILLEDA M.D. 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 TECHNIQUE: Noncontrasted CT scan from the base of the skull to the feet followed by PET imaging. Multiplanar PET/CT fusion images. Blood Glucose : 12.89 mg/dL The F-18 FDG 101.mCi. FINDINGS: Neck: No abnormal activity is noted. Chest:Prominent bilateral axillary lymph nodes, SUV max 2.3. [place] 4. No FDG avid mediastinal or hilar lymph nodes. Partially calcified FDG avid right lobe thyroid nodule, SUV max of 2.7. Abdomen/pelvis: FDG avid aortocaval lymph nodes, SUV max 3.6. [place] 4. FDG avid right pelvic sidewall and right iliac chain lymph nodes extending into the right inguinal/femoral region, SUV max of 4.3.[place] 4. Soft tissue/bones: Abnormal activity is seen in the region of the patient's known right upper extremity abscess, SUV max 2.4. CT findings: No pneumothorax. No pericardial or pleural effusions. Trace bilateral pleural effusions. No free air or free fluid. PET/PET tumor init tx strat wb IMPRESSION: FDG avid lymph nodes seen above and below the diaphragm consistent with lymphomatous involvement. Abnormal activity involving the right upper extremity consistent with the patient's history of abscess. FDG avid right lobe thyroid nodule. Correlation with ultrasound is recommended. Impression dictated by: Price Barker Jr., D.OArnoldo04/04/2024 1:48 PM Dictation Location: [place] [address] Transcribed By: [facility] 04/04/24 1348 Dictated By: Price Barker Jr, DO 04/04/24 1336 Signed By: 04/04/24 1348 Normal [facility] Alanine aminotransferase [En zymatic activity/volume] in Serum or PlasmaOrdered By: Maria Ines Hanley on 03-29-2024 ALT [Catalytic activity/Vol] 16 U/L Normal 7-52 [facility] Comment on above: Performed By: #### S PE, IMM RICKEY, KAPPA, B2-MICRO #### [facility] , #### LDH, CMP, CBC, HAPT #### [facility] [address] [place] [id number] [place] Albumin [Mass/volume] in Ser um or PlasmaOrdered By: Maria Ines Hanley on 03-29-2024 Albumin [Mass/Vol] 3.5 g/dL Normal 2.9-4.4 [facility] Comment on above: Performed By: #### V ANCP #### [facility] [address] [place] [id number] [place] Albumin [Mass/volume] in Ser um or Plasma by Bromocresol green (BCG) dye binding methoOrdered By: Maria Ines Hanley on 03-29-2024 Albumin BCG dye [Mass/Vol] 4.0 g/dL 3.5-5.7 [facility] Alkaline phosphatase [Enzyma tic activity/volume] in Serum or PlasmaOrdered By: Maria Ines Hanley on 03-29-2024 ALP [Catalytic activity/Vol] 46 U/L Normal 34-104 [facility] Comment on above: Performed By: #### S PE, IMM RICKEY, KAPPA, B2-MICRO #### [facility] , #### LDH, CMP, CBC, HAPT #### [address] Aspartate aminotransferase [ Enzymatic activity/volume] in Serum or PlasmaOrdered By: Maria Ines Hanley on 03-29-2024 AST [Catalytic activity/Vol] 15 U/L Normal 13-39 [facility] Comment on above: Performed By: #### S PE, IMM RICKEY, KAPPA, B2-MICRO #### [facility] , #### LDH, CMP, CBC, HAPT #### [address] Automated basophil %Ordered By: Maria Ines Hanley on 03-29-2024 Basophils/100 WBC (Bld) 0.4 % Normal . [facility] Comment on above: Performed By: #### S PE, IMM RICKEY, KAPPA, B2-MICRO #### [facility] , #### LDH, CMP, CBC, HAPT #### [address] Automated basophil countOrde red By: Maria Ines Hanley on 03-29-2024 Basophils (Bld) [#/Vol] 0.0 10*3/uL Normal 0.0-0.2 [facility] Comment on above: Result Comment: PERF ORMED BY: [place] [address] PATHOLOGIST PAINTING MACHINE OPERATOR WILLI VILLEDA M.D. Performed By: #### S PE, IMM RICKEY, KAPPA, B2-MICRO #### [facility] , #### LDH, CMP, CBC, HAPT #### [address] Automated blood monocyte cou ntOrdered By: Maria Ines Hanley on 03-29-2024 Monocytes (Bld) [#/Vol] 0.5 10*3/uL Normal 0.0-0.8 [facility] Comment on above: Performed By: #### S PE, IMM RICKEY, KAPPA, B2-MICRO #### [facility] , #### LDH, CMP, CBC, HAPT #### [address] Automated eosinophil %Ordere d By: Maria Ines Hanley on 03-29-2024 Eosinophils/100 WBC (Bld) 1.1 % Normal . [facility] Comment on above: Performed By: #### S PE, IMM RICKEY, KAPPA, B2-MICRO #### [facility] , #### LDH, CMP, CBC, HAPT #### [address] Automated eosinophil countOr dered By: Maria Ines Hanley on 03-29-2024 Eosinophils (Bld) [#/Vol] 0.1 10*3/uL Normal 0.0-0.45 [facility] Comment on above: Performed By: #### S PE, IMM RICKEY, KAPPA, B2-MICRO #### [facility] , #### LDH, CMP, CBC, HAPT #### [address] Automated monocyte %Ordered By: Maria Ines Hanley on 03-29-2024 Monocytes/100 WBC (Bld) 5.9 % Normal . [facility] Comment on above: Performed By: #### S PE, IMM RICKEY, KAPPA, B2-MICRO #### [facility] , #### LDH, CMP, CBC, HAPT #### [address] Automated neutrophil %Ordere d By: Maria Ines Hanley on 03-29-2024 Neutrophils/100 WBC (Bld) 61.7 % Normal . [facility] Comment on above: Performed By: #### S PE, IMM RICKEY, KAPPA, B2-MICRO #### [facility] , #### LDH, CMP, CBC, HAPT #### [address] [place] [address] [place] Beta 2 Microglobulin, Serumo n 03-29-2024 Beta 2 Microglobulin, Serum 2.2 mg/L Normal 0.6-2.4 [facility] Comment on above: Result Comment: Aba cobb Immulite 2000 Immunochemiluminometric assay (ICMA) Values obtained with different assay methods or kits cannot be used interchangeably. Results cannot be interpreted as absolute evidence of the presence or absence of malignant disease. Performed at: [address] [id number] It Security Manager: Sohan Broderick MD, Phone: [phone] Performed By: #### V ANCP #### [address] Bilirubin.total [Mass/volume ] in Serum or PlasmaOrdered By: Maria Ines Hanley on 03-29-2024 Bilirubin [Mass/Vol] 0.5 mg/dL Normal 0.3-1.0 [facility] Comment on above: Performed By: #### S PE, IMM RICKEY, KAPPA, B2-MICRO #### [facility] , #### LDH, CMP, CBC, HAPT #### [place] [address] [place] Calcium [Mass/volume] in Ser um or PlasmaOrdered By: Maria Ines Hanley on 03-29-2024 Calcium [Mass/Vol] 8.8 mg/dL Normal 8.6-10.3 [facility] Comment on above: Performed By: #### S PE, IMM RICKEY, KAPPA, B2-MICRO #### [facility] , #### LDH, CMP, CBC, HAPT #### [place] [address] [place] Carbon dioxide, total [Moles /volume] in Serum or PlasmaOrdered By: Maria Ines Hanley on 03-29-2024 CO2 [Moles/Vol] 30.5 mmol/L Normal 21.0-31.0 [facility] Comment on above: Performed By: #### S PE, IMM RICKEY, KAPPA, B2-MICRO #### [facility] , #### LDH, CMP, CBC, HAPT #### [address] Chloride [Moles/volume] in S flor or PlasmaOrdered By: Maria Ines Hanley on 03-29-2024 Chloride [Moles/Vol] 106 mmol/L Normal 98-107 [facility] Comment on above: Performed By: #### S PE, IMM RICKEY, KAPPA, B2-MICRO #### [facility] , #### LDH, CMP, CBC, HAPT #### [address] Complete Blood Count Auto Di ffon 03-29-2024 Mean Corpuscular HGB Conc 34.0 g/dL Normal 32.5-35.6 [facility] Comment on above: Performed By: #### S PE, IMM RICKEY, KAPPA, B2-MICRO #### [facility] , #### LDH, CMP, CBC, HAPT #### [address] NRBC% 0.1 /100{WBC} Normal 0-0.5 [facility] Comment on above: Performed By: #### S PE, IMM RICKEY, KAPPA, B2-MICRO #### [facility] , #### LDH, CMP, CBC, HAPT #### [address] Comprehensive Metabolic Pane andrea 03-29-2024 Albumin [Mass/Vol] 4.0 g/dL Normal 3.5-5.7 [facility] Comment on above: Performed By: #### S PE, IMM RICKEY, KAPPA, B2-MICRO #### [facility] , #### LDH, CMP, CBC, HAPT #### [facility] [address] [place] [address] Creatinine Clr Calc Pharmacy 82.13 Normal [facility] Comment on above: Performed By: #### S PE, IMM RICKEY, KAPPA, B2-MICRO #### [facility] , #### LDH, CMP, CBC, HAPT #### [address] GFR/1.73 sq M.predicted MDRD (S/P/Bld) [Vol rate/Area] mL/min/{1.73_m2} Normal [facility] Comment on above: Performed By: #### S PE, IMM RICKEY, KAPPA, B2-MICRO #### [facility] , #### LDH, CMP, CBC, HAPT #### [address] Creatinine [Mass/volume] in Serum or PlasmaOrdered By: Maria Ines Hanley on 03-29-2024 Creatinine [Mass/Vol] 1.04 mg/dL Normal 0.70-1.30 [facility] Comment on above: Performed By: #### S PE, IMM RICKEY, KAPPA, B2-MICRO #### [facility] , #### LDH, CMP, CBC, HAPT #### [address] Direct [place] 03-29-2024 Polyspecific AHG Negative Normal Negative [facility] Comment on above: Result Comment: PERF ORMED BY: [place] [address] PATHOLOGIST PAINTING MACHINE OPERATOR WILLI VILLEDA M.D. Erythrocyte distribution wid th [Ratio] by Automated countOrdered By: Maria Ines Hanley on 03-29-2024 Erythrocyte distribution width (RBC) [Ratio] 14.2 % Normal 12.0-14.8 [facility] Comment on above: Performed By: #### S PE, IMM RICKEY, KAPPA, B2-MICRO #### [facility] , #### LDH, CMP, CBC, HAPT #### [address] Erythrocytes [#/volume] in B lood by Automated countOrdered By: Maria Ines Hanley on 03-29-2024 RBC (Bld) [#/Vol] 4.72 10*6/uL Normal 3.90-5.60 [facility] Comment on above: Performed By: #### S PE, IMM RICKEY, KAPPA, B2-MICRO #### [facility] , #### LDH, CMP, CBC, HAPT #### [place] [address] [place] Free K+L LT Chains, Qn, Son 03-29-2024 Free Ballantine Light Chains, S 16.4 mg/L Normal 3.3-19.4 [facility] Comment on above: Performed By: #### V ANCP #### [place] [address] [place] Free Lambda Light Chains, S 18.0 mg/L Normal 5.7-26.3 [facility] Comment on above: Performed By: #### V ANCP #### [address] Ballantine/Lambda Ratio, S 0.91 Normal 0.26-1.65 [facility] Comment on above: Result Comment: Perf ormed at: CB - [facility] [address] [id number] It Security Manager: Clifton Rooney PhD, Phone: [phone] PERFORMED BY: [place] [address] PATHOLOGIST PAINTING MACHINE OPERATOR WILLI VILLEDA M.D. Performed By: #### V ANCP #### [place] [address] [place] Glucose [Mass/volume] in Ser um or PlasmaOrdered By: Maria Ines Hanley on 03-29-2024 Glucose [Mass/Vol] 112 mg/dL High 70-100 [facility] Comment on above: ADA recommended refe rence rangeRandom Glucose Reference Range is dependent on time and content of last meal. Glucose of more than 200 mg/dL in a nonstressed, ambulatory subject supports the diagnosis of Diabetes Mellitus. Result Comment: [facility] om Glucose Reference Range is dependent on time and content of last meal. Glucose of more than 200 mg/dL in a nonstressed, ambulatory subject supports the diagnosis of Diabetes Mellitus. ADA recommended reference range Performed By: #### S PE, IMM RICKEY, KAPPA, B2-MICRO #### [facility] , #### LDH, CMP, CBC, HAPT #### [address] Haptoglobinon 03-29-2024 Haptoglobin 124 mg/dL Normal 44-215 [facility] Comment on above: Result Comment: PERF ORMED BY: [place] [address] PATHOLOGIST PAINTING MACHINE OPERATOR WILLI VILLEDA M.D. Performed By: #### S PE, IMM RICKEY, KAPPA, B2-MICRO #### [facility] , #### LDH, CMP, CBC, HAPT #### [address] Haptoglobin [Mass/volume] in Serum or PlasmaOrdered By: Maria Ines Hanley on 03-29-2024 Haptoglobin [Mass/Vol] 124 mg/dL 44-215 [facility] Hematocrit [Volume Fraction] of Blood by Automated countOrdered By: Maria Ines Hanley on 03-29-2024 Hematocrit (Bld) [Volume fraction] 42.0 % Normal 38.8-50.0 [facility] Comment on above: Performed By: #### S PE, IMM RICKEY, KAPPA, B2-MICRO #### [facility] , #### LDH, CMP, CBC, HAPT #### [address] Hemoglobin [Mass/volume] in BloodOrdered By: Maria Ines Hanley on 03-29-2024 Hemoglobin (Bld) [Mass/Vol] 14.3 g/dL Normal 13.0-17.0 [facility] Comment on above: Performed By: #### S PE, IMM RICKEY, KAPPA, B2-MICRO #### [facility] , #### LDH, CMP, CBC, HAPT #### [address] IgA [Mass/volume] in Serum o r PlasmaOrdered By: Maria Ines Hanley on 03-29-2024 IgA [Mass/Vol] 103 mg/dL 61-437 [facility] IgG [Mass/volume] in Serum o r PlasmaOrdered By: Maria Ines aHnley on 03-29-2024 IgG [Mass/Vol] 877 mg/dL 603-1613 [facility] IgM [Mass/volume] in Serum o r PlasmaOrdered By: Maria Ines Hanley on 03-29-2024 IgM [Mass/Vol] 112 mg/dL 20-172 [facility] Comment on above: Performed at: [employer] [address] [id number] Director: Clifton Rooney PhD, Phone: [phone] Immunoglobulin light chains. kappa.free [Mass/volume] in SerumOrdered By: Maria Ines Monroese on 03-29-2024 Immunoglobulin light chains.kappa.free (S) [Mass/Vol] 16.4 mg/L 3.3-19.4 [facility] Immunoglobulin light chains. kappa.free/Immunoglobulin light chains.lambda.free [MassOrdered By: Maria Ines Monroese on 03-29-2024 Immunoglobulin light chains.kappa.free/Immu noglobulin light chains.lambda.free (S) [Mass ratio] 0.91 0.26-1.65 [facility] Comment on above: Performed at: [employer] [address] [id number] Director: Clifton Rooney PhD, Phone: [phone] Immunoglobulin light chains. lambda.free [Mass/volume] in Serum or PlasmaOrdered By: Maria Ines Talon on 03-29-2024 Immunoglobulin light chains.lambda.free [Mass/Vol] 18.0 mg/L 5.7-26.3 [facility] Immunoglobulins A/G/M, Qn, S fabricio 03-29-2024 Immunoglobulin A, Serum 103 mg/dL Normal 61-437 [facility] Comment on above: Performed By: #### S PE, IMM RICKEY, KAPPA, B2-MICRO #### [facility] , #### LDH, CMP, CBC, HAPT #### [facility] [address] [place] [address] Immunoglobulin G 877 mg/dL Normal 603-1613 [facility] Comment on above: Performed By: #### S PE, IMM RICKEY, KAPPA, B2-MICRO #### [facility] , #### LDH, CMP, CBC, HAPT #### [address] Immunoglobulin M, Serum 112 mg/dL Normal 20-172 [facility] Comment on above: Result Comment: Perf ormed at: - [facility] [address] [id number] It Security Manager: Clifton Rooney PhD, Phone: [phone] Performed By: #### S PE, IMM RICKEY, KAPPA, B2-MICRO #### [facility] , #### LDH, CMP, CBC, HAPT #### [address] LDH Lactate Dehydrogenaseon 03-29-2024 LDH Lactate Dehydrogenase 249 U/L Normal 140-271 [facility] Comment on above: Result Comment: PERF ORMED BY: [place] [address] PATHOLOGIST PAINTING MACHINE OPERATOR WILLI VILLEDA M.D. Performed By: #### S PE, IMM RICKEY, KAPPA, B2-MICRO #### [facility] , #### LDH, CMP, CBC, HAPT #### [address] Lactate dehydrogenase [Enzym atic activity/volume] in Serum or Plasma by Lactate to pyOrdered By: Maria Ines Hanley on 03-29-2024 LDH Lactate to pyruvate reaction [Catalytic activity/Vol] 249 U/L 140-271 [facility] Leukocytes [#/volume] correc isa for nucleated erythrocytes in Blood by Automated counOrdered By: Maria Ines Hanley on 03-29-2024 WBC corrected for nucl RBC Auto (Bld) [#/Vol] 8.4 10*3/uL 4.1-10.5 [facility] Leukocytes [#/volume] in Blo od by Automated countOrdered By: Maria Ines Hanley on 03-29-2024 WBC (Bld) [#/Vol] 8.4 10*3/uL Normal 4.1-10.5 [facility] Comment on above: Performed By: #### S PE, IMM RICKEY, KAPPA, B2-MICRO #### [facility] , #### LDH, CMP, CBC, HAPT #### [place] [address] [place] Lymphocytes [#/volume] in Bl ood by Automated countOrdered By: Maria Ines Hanley on 03-29-2024 Lymphocytes (Bld) [#/Vol] 2.6 10*3/uL Normal 1.00-4.8 [facility] Comment on above: Performed By: #### S PE, IMM RICKEY, KAPPA, B2-MICRO #### [facility] , #### LDH, CMP, CBC, HAPT #### [place] [address] [place] Lymphocytes/100 leukocytes i n Blood by Automated countOrdered By: Maria Ines Hanley on 03-29-2024 Lymphocytes/100 WBC (Bld) 30.9 % Normal . [facility] Comment on above: Performed By: #### S PE, IMM RICKEY, KAPPA, B2-MICRO #### [facility] , #### LDH, CMP, CBC, HAPT #### [address] MCH [Entitic mass] by Automa isa countOrdered By: Maria Ines Hanley on 03-29-2024 MCH (RBC) [Entitic mass] 30.3 pg Normal 27.5-35.2 [facility] Comment on above: Performed By: #### S PE, IMM RICKEY, KAPPA, B2-MICRO #### [facility] , #### LDH, CMP, CBC, HAPT #### [address] MCHC Auto (RBC) [Mass/Vol]Or dered By: Maria Ines Hanley on 03-29-2024 MCHC (RBC) [Mass/Vol] 34.0 g/dL 32.5-35.6 [facility] MCV [Entitic volume] by Auto mated countOrdered By: Maria Ines Hanley on 03-29-2024 MCV (RBC) [Entitic vol] 89.0 fL Normal 83.5-101 [facility] Comment on above: Performed By: #### S PE, IMM RICKEY, KAPPA, B2-MICRO #### [facility] , #### LDH, CMP, CBC, HAPT #### [facility] [address] Neutrophils [#/volume] in Bl ood by Automated countOrdered By: Maria Ines Hanley on 03-29-2024 Neutrophils (Bld) [#/Vol] 5.2 10*3/uL Normal 1.8-7.7 [facility] Comment on above: Performed By: #### S PE, IMM RICKEY, KAPPA, B2-MICRO #### [facility] , #### LDH, CMP, CBC, HAPT #### [facility] [address] [place] [address] No Panel InformationOrdered By: Maria Ines Hanley on 03-29-2024 Estimated GFR (CKD-EPI) > 60.0 mL/Min [facility] Creatinine Clearance (Chem 82.13 [facility] Protein Electrophoresis M-Dimitri Not observed g/dL Not Observed [facility] Protein Electrophoresis Note Comment . [facility] Comment on above: Protein electrophore sis scan will follow via computer,mail, or boilermaker welder delivery. Nucleated erythrocytes [Pres ence] in Blood by Automated countOrdered By: Maria Ines Hanley on 03-29-2024 Nucleated RBC Auto Ql (Bld) 0.1 /100{WBC} 0-0.5 [facility] Platelet mean volume [Entiti c volume] in Blood by Automated countOrdered By: Maria Ines Hanley on 03-29-2024 Platelet mean volume (Bld) [Entitic vol] 7.4 fL Normal 6.6-10.1 [facility] Comment on above: Performed By: #### S PE, IMM RICKEY, KAPPA, B2-MICRO #### [facility] , #### LDH, CMP, CBC, HAPT #### [facility] [address] [place] [address] [place] Platelets [#/volume] in Bloo d by Automated countOrdered By: Maria Ines Hanley on 03-29-2024 Platelets (Bld) [#/Vol] 178 10*3/uL Normal 150-450 [facility] Comment on above: Performed By: #### S PE, IMM RICKEY, KAPPA, B2-MICRO #### [facility] , #### LDH, CMP, CBC, HAPT #### [facility] [address] [place] [address] [place] Potassium [Moles/volume] in Serum or PlasmaOrdered By: Maria Ines Hanley on 03-29-2024 Potassium [Moles/Vol] 3.9 mmol/L Normal 3.5-5.1 [facility] Comment on above: Performed By: #### S PE, IMM RICKEY, KAPPA, B2-MICRO #### [facility] , #### LDH, CMP, CBC, HAPT #### [facility] [address] [place] [address] [place] Protein Electrophoresis, Ser umon 03-29-2024 Epune-2-Oqlbsqet 0.2 g/dL Normal 0.0-0.4 [facility] Comment on above: Performed By: #### V ANCP #### [facility] [address] [place] [address] [place] Mjglc-7-Ywjmaxem 0.6 g/dL Normal 0.4-1.0 [facility] Comment on above: Performed By: #### V ANCP #### [facility] [address] [place] [address] [place] Beta Globulin 0.8 g/dL Normal 0.7-1.3 [facility] Comment on above: Performed By: #### V ANCP #### [facility] [address] [place] [address] [place] Gamma Globulin 0.9 g/dL Normal 0.4-1.8 [facility] Comment on above: Performed By: #### V ANCP #### [address] M-Dimitri Not Observed Normal Not Observed [facility] Comment on above: Performed By: #### V ANCP #### [address] SPE-Note Comment Normal . [facility] Comment on above: Result Comment: Prot ein electrophoresis scan will follow via computer, mail, or boilermaker welder delivery. Performed By: #### V ANCP #### [address] Protein [Mass/volume] in Ser um or PlasmaOrdered By: Maria Ines Hanley on 03-29-2024 Protein [Mass/Vol] 5.8 g/dL Low 6.4-8.9 [facility] Comment on above: Performed By: #### S PE, IMM RICKEY, KAPPA, B2-MICRO #### [facility] , #### LDH, CMP, CBC, HAPT #### [address] Protein [Mass/Vol] 5.9 g/dL Low 6.0-8.5 [facility] Comment on above: Performed By: #### V ANCP #### [address] Serum globulin measurement ( mass/volume)Ordered By: Maria Ines Hanley on 03-29-2024 Globulin (S) [Mass/Vol] 2.4 g/dL Normal 2.2-3.9 [facility] Comment on above: Performed By: #### V ANCP #### [address] Serum globulin measurement b y calculation (mass/volume)Ordered By: Maria Ines Hanley on 03-29-2024 Globulin (S) [Mass/Vol] 1.8 g/dL Normal [facility] Comment on above: Performed By: #### S PE, IMM RICKEY, KAPPA, B2-MICRO #### [facility] , #### LDH, CMP, CBC, HAPT #### [address] [place] [address] [place] Serum or plasma albumin/glob ulin mass ratioOrdered By: Maria Ines Hanley on 03-29-2024 Albumin/Globulin [Mass ratio] 2.2 {ratio} Normal [facility] Comment on above: Performed By: #### S PE, IMM RICKEY, KAPPA, B2-MICRO #### [facility] , #### LDH, CMP, CBC, HAPT #### [facility] Ctr [address] [place] [address] Albumin/Globulin [Mass ratio] 1.5 {ratio} Normal 0.7-1.7 [facility] Comment on above: Performed By: #### V ANCP #### [address] Serum or plasma alpha 1 glob ulin measurement by electrophoresis (mass/volume)Ordered By: Maria Ines Hanley on 03-29-2024 Alpha 1 globulin Elph [Mass/Vol] 0.2 g/dL 0.0-0.4 [facility] Serum or plasma alpha 2 glob ulin measurement by electrophoresis (mass/volume)Ordered By: Maria Ines Hanley on 03-29-2024 Alpha 2 globulin Elph [Mass/Vol] 0.6 g/dL 0.4-1.0 [facility] Serum or plasma anion gap de terminationOrdered By: Maria Ines Hanley on 03-29-2024 Anion gap [Moles/Vol] 7.4 mmol/L Normal 6.0-15.0 [facility] Comment on above: Performed By: #### S PE, IMM RICKEY, KAPPA, B2-MICRO #### [facility] , #### LDH, CMP, CBC, HAPT #### [facility] [address] [place] [address] Serum or plasma beta globuli n measurement by electrophoresis (mass/volume)Ordered By: Maria Ines Hanley on 03-29-2024 Beta globulin Elph [Mass/Vol] 0.8 g/dL 0.7-1.3 [facility] Serum or plasma penh-4-exrxc globulin measurement (mass/volume)Ordered By: Maria Ines Hanley on 03-29-2024 Vnec-1-Npmxuvdzevoem [Mass/Vol] 2.2 ug/mL 0.6-2.4 [facility] Comment on above: Siemens Immulite 200 0 Immunochemiluminometric assay (ICMA)Values obtained with different assay methods or kits cannotbe used interchangeably. Results cannot be interpreted asabsolute evidence of the presence or absence of malignantdisease.Performed at: [address] [id number] Director: Sohan Broderick MD, Phone: [phone] Serum or plasma gamma globul in measurement by electrophoresis (mass/volume)Ordered By: Maria Ines Hanley on 03-29-2024 Gamma globulin Elph [Mass/Vol] 0.9 g/dL 0.4-1.8 [facility] Sodium [Moles/volume] in Ser um or PlasmaOrdered By: Maria Ines Hanley on 03-29-2024 Sodium [Moles/Vol] 140 mmol/L Normal 136-145 [facility] Comment on above: Performed By: #### S PE, IMM RICKEY, KAPPA, B2-MICRO #### [facility] , #### LDH, CMP, CBC, HAPT #### [facility] [address] Urea nitrogen [Mass/volume] in Serum or PlasmaOrdered By: Maria Ines Hanley on 03-29-2024 Urea nitrogen [Mass/Vol] 12 mg/dL Normal 7-25 [facility] Comment on above: Performed By: #### S PE, IMM RICKEY, KAPPA, B2-MICRO #### [facility] , #### LDH, CMP, CBC, HAPT #### [facility] [address] [place] [id number] [facility] 03-09-20 [facility] Case Information Case Priority: None Programs: -- Referral Source: Crusher Assembler Referral Reason: Care coordination Case Type: Transition Care Management Risk Score: -- Case Status: Enrolled (March 05, 2024) Date Assigned: March 02, 2024 Assigned By: Jignesh Guerrero Date Enrolled: March 05, 2024 Assigned Primary Personnel: Jignesh Guerrero Assigned Secondary Personnel: -- Case Physician: Rashida Gayle Problems Ongoing Abscess of arm BPH with urinary obstruction Bronchitis Cellulitis of right elbow Cough Elevated PSA Erectile dysfunction Feeling of incomplete bladder emptying Frequency of urination Herpes zoster CAROL on CPAP Sinusitis Status post incision and drainage Urethral stricture in male Urinary urgency Weak urine stream Historical Defecation urgency Procedure/Surgical History Colonoscopy (01/13/2023), Cystoscopy (06/02/2020), TRUS - Transrectal ultrasonography (06/07/2018), Cystoscopy (01/05/2016), Transrectal biopsy of prostate using ultrasound (US) guidance (03/08/2011), Tonsillectomy. Home Medications famotidine 20 mg Tab, 20 mg= 1 tab(s), Oral, Daily finasteride 5 mg Tab, 5 mg= 1 tab(s), Oral, Daily, 11 refills Flomax 0.4 mg Cap, 0.8 mg= 2 cap(s), Oral, Daily, 11 refills Multi Vitamin+ [employer] [place] cpap machine supplies: head gear, mask, tubing and filters, See Instructions, 1 refills sulfamethoxazole-trimethop rim 800 mg-160 mg Tab Allergies No Known Allergies No Known Medication Allergies Social History Tobacco - Denies Tobacco Use, 06/02/2020 Never (less than 100 in lifetime) Tobacco Use:. Never Smokeless Tobacco Use:. Cigarettes, Household tobacco concerns: No. Yes, 03/02/2024 Family History Prostate cancer: Grandparent. Throat cancer: Father. Screenings and Assessments 03/05/24 07:58:00 Result Name Value Comment Phone Call Monitoring Consent Agreed to continue call Phone Verification Patient Information Full name, street address and date of verified CM Program Enrollment Provides verbal consent for enrollment Goals and Interventions Care Plan Progress Note TCM#2- Patient states things are going in a good direction. Notes he had follow up yesterday with Dr. Lamb, who advised patient he was happy with his progress, wound to right arm appears to be healing well. Patient notes stitches are in tact. Notes some drainage, per patient Dr. Lamb wanted this. Patient denies any pain. Denies swelling. Denies fever or chills. Patient denies any issues or concerns with bowels. Patient denies any urinary issues or concerns. Patient is eating and drinking well, staying well hydrated. Patient follows back up with Dr. Lamb 03/19/24 for suture removal. Patient denies need for med refills. Patient denies any further questions or concerns. Communication Events Date: March 09, 2024 Method: Phone call Type: Outbound Duration (min): 4 Outcome: Case discussion Contact Type: corporate fitness program coordinator Contact Name: Jignesh Guerrero Notes: TCM#2- see tcm note Created By: Jignesh Guerrero Date: March 02, 2024 Method: In-person Type: -- Duration (min): -- Outcome: Case discussion Contact Type: Primary care provider Contact Name: Rashida Gayle Notes: TCM#1- see ov note. Created By: Jignesh Guerrero [facility] Medicine Office/Clini c Noteon 03-02-2024 Family Medicine Office/Clinic Note Family Medicine Office/Clinic Note HPI Staff Mily is a 68 year old male presenting with ER followup: 02/27/24 US Venous Doppler 02/27/24 Chest XR Hospital: [facility] Visit date: 02/26- 03/01 Symptoms the patient presented with: abscess on right elbow area Current concerns: Had surgery on 02/29/24 drained and flushed it History of Present Illness pt presents today for TCM follow up. abscess on right elbow area was opened and drained by surgeon Review of Systems PHQ Score Initial Depression Screen Score: 0 SCORE Physical Exam Vitals & Measurements T: 36.7 ?C(Temporal Artery) HR: 78(Peripheral) RR: 20 BP: 116/78 SpO2: 96% HT: 73 in HT: 185.0 cm WT: 100.8 kg WT: 221.76 lb BMI: 29.45 General: alert, no acute distress ENMT: oral mucosa moist, no pharyngeal erythema or exudate Cardiovascular: regular rate and rhythm, normal peripheral perfusion Respiratory: Lungs CTA, respirations non labored Extremities: no deformity, no trauma Neurological: oriented x 4, LOC appropriate for age, CN II-XII intact, motor strength equal & normal bilaterally, speech normal Assessment/Plan 1. Status post incision and drainage (Z98.890: Other specified postprocedural states) pt presents today for follow up on I&D of large abscess on right elbow. dressing was removed. incision is clean and dry. wound was redressed. pt will follow up with surgeon on march 15 for suture removal Ordered: TCM Trans care mgmt 7 day disch 03406 2. Abscess of arm (L02.419: Cutaneous abscess of limb, unspecified) incision is clean and dry sutures intact Ordered: TCM Trans care mgmt 7 day disch 46760 3. Non-smoker (Z78.9: Other specified health status) continue not smoking Ordered: TCM Trans care mgmt 7 day disch 68179 4. BMI 29.0-29.9,adult (Z68.29: Body mass index [BMI] 29.0-29.9, adult) BMI education given Ordered: TCM Trans care mgmt 7 day disch 14100 Follow-up No qualifying data available Problem List/Past Medical History Ongoing Abscess of arm BPH with urinary obstruction Bronchitis Cellulitis of right elbow Cough Elevated PSA Erectile dysfunction Feeling of incomplete bladder emptying Frequency of urination Herpes zoster CAROL on CPAP Sinusitis Status post incision and drainage Urethral stricture in male Urinary urgency Weak urine stream Historical Defecation urgency Procedure/Surgical History Colonoscopy (01/13/2023), Cystoscopy (06/02/2020), TRUS - Transrectal ultrasonography (06/07/2018), Cystoscopy (01/05/2016), Transrectal biopsy of prostate using ultrasound (US) guidance (03/08/2011), Tonsillectomy. Medications famotidine 20 mg Tab, 20 mg= 1 tab(s), Oral, Daily finasteride 5 mg Tab, 5 mg= 1 tab(s), Oral, Daily, 11 refills Flomax 0.4 mg Cap, 0.8 mg= 2 cap(s), Oral, Daily, 11 refills Multi Vitamin+ [employer] cpap machine supplies: head gear, mask, tubing and filters, See Instructions, 1 refills sulfamethoxazole-trimethop rim 800 mg-160 mg Tab Allergies No Known Allergies No Known Medication Allergies Social History Tobacco - Denies Tobacco Use, 06/02/2020 Never (less than 100 in lifetime) Tobacco Use:. Never Smokeless Tobacco Use:. Cigarettes, Household tobacco concerns: No. Yes, 03/02/2024 Family History Prostate cancer: Grandparent. Throat cancer: Father. Immunizations Vaccine Date Status influenza virus vaccine, inactivated 05/14/2022 Recorded SARS-CoV-2 (COVID-19) [id number].ORD![id number] 05/14/2022 Recorded SARSCoV2 mRNA(fnltyzrul-wfrw-gfqaoo ) vac 12/07/2021 Recorded SARS-CoV-2 (COVID-19) mRNA BNT-162b2 vax 05/10/2021 Recorded SARS-CoV-2 (COVID-19) Ad26 vaccine 10/18/2020 Recorded SARS-CoV-2 (COVID-19) mRNA BNT-162b2 vax 09/27/2020 Recorded SARS-CoV-2 (COVID-19) Ad26 vaccine 09/02/2020 Recorded pneumococcal 13-valent vaccine 06/05/2020 Recorded influenza virus vaccine, inactivated 06/05/2020 Recorded Normal [facility] Comment on above: Result Comment: Elec tronically Signed By: Jocelynn KEY, Rashida Vidal\.br\Date and Time Signed: 03/02/24 14:23 EDT Basic Metabolic Panelon Creatinine Clr Calc Pharmacy 82.82 Normal [facility] Comment on above: Performed By: #### V ANCP #### [place] [address] [place] GFR/1.73 sq M.predicted MDRD (S/P/Bld) [Vol rate/Area] mL/min/{1.73_m2} Normal [facility] Comment on above: Performed By: #### V ANCP #### [place] [address] [place] Calcium [Mass/volume] in Ser um or PlasmaOrdered By: Antony Thompson on 03-01-2024 Calcium [Mass/Vol] 8.8 mg/dL Normal 8.6-10.3 [facility] Comment on above: Performed By: #### V ANCP #### [place] [address] [place] Carbon dioxide, total [Moles /volume] in Serum or PlasmaOrdered By: Antony Thompson on 03-01-2024 CO2 [Moles/Vol] 24.8 mmol/L Normal 21.0-31.0 [facility] Comment on above: Performed By: #### V ANCP #### [place] [address] [place] Chloride [Moles/volume] in S flor or PlasmaOrdered By: Antony Thompson on 03-01-2024 Chloride [Moles/Vol] 104 mmol/L Normal 98-107 [facility] Comment on above: Performed By: #### V ANCP #### [facility] [address] [place] [address] [facility] Creatinine [Mass/volume] in Serum or PlasmaOrdered By: Antony Thompson on 03-01-2024 Creatinine [Mass/Vol] 1.03 mg/dL Normal 0.70-1.30 [facility] Comment on above: Performed By: #### V ANCP #### [facility] [address] [place] [address] [facility] ECG 12 lead ECGon 03-01-2024 ECG 12 lead ECG [facility] [place] [address] [place] [address] Electrocardiograph Report Signed Patient: Mily Guadalupe MR#: [id number] : 1955 Acct:[id number] Age/Sex: 68 / M ADM Date: 02/27/24 Loc: Room: [address] [place] [address] Type: ADM IN Attending Dr: Antony Thompson DO Ordering Provider: Antony Thompson DO Date of Service: 03/01/2408/24/499 ECG/ECG 12 lead ECG: abn Copies to: Test Reason : Blood Pressure : */* mmHG Vent. Rate : 71 BPM Atrial Rate : 71 BPM P-R Int : 188 ms QRS Dur : 88 ms QT Int : 388 ms P-R-T Axes : 53 53 64 degrees QTcB Int : 421 ms Normal sinus rhythm Normal ECG Confirmed by KENNEDY EATON [facility], YULIANA ([id number]) on 03/01/2024 12:39:06 PM Referred By: Electronically Signed By: YULIANA MAC MD [facility] Transcribed By: MUS Signed By Yuliana Mac MD, FACC 03/01/24 1239 Normal [facility] Erythrocyte distribution wid th [Ratio] by Automated countOrdered By: Antony Thompson on 03-01-2024 Erythrocyte distribution width (RBC) [Ratio] 12.9 % Normal 12.0-14.8 [facility] Comment on above: Performed By: #### V ANCP #### [place] [address] [place] Erythrocytes [#/volume] in B lood by Automated countOrdered By: Antony Thompson on 03-01-2024 RBC (Bld) [#/Vol] 4.95 10*6/uL Normal 3.90-5.60 [facility] Comment on above: Performed By: #### V ANCP #### [place] [address] [place] Glucose [Mass/volume] in Ser um or PlasmaOrdered By: Antony Thompson on 03-01-2024 Glucose [Mass/Vol] 126 mg/dL High 70-100 [facility] Comment on above: ADA recommended refe rence rangeRandom Glucose Reference Range is dependent on time and content of last meal. Glucose of more than 200 mg/dL in a nonstressed, ambulatory subject supports the diagnosis of Diabetes Mellitus. Result Comment: [place] om Glucose Reference Range is dependent on time and content of last meal. Glucose of more than 200 mg/dL in a nonstressed, ambulatory subject supports the diagnosis of Diabetes Mellitus. ADA recommended reference range Performed By: #### V ANCP #### [address] Hematocrit [Volume Fraction] of Blood by Automated countOrdered By: Antony Thompson on 03-01-2024 Hematocrit (Bld) [Volume fraction] 43.7 % Normal 38.8-50.0 [facility] Comment on above: Performed By: #### V ANCP #### [place] [address] [place] Hemoglobin [Mass/volume] in BloodOrdered By: Antony Thompson on 03-01-2024 Hemoglobin (Bld) [Mass/Vol] 14.8 g/dL Normal 13.0-17.0 [facility] Comment on above: Performed By: #### V ANCP #### [address] Hemogram CBC Without Diffon 03-01-2024 Mean Corpuscular HGB Conc 33.9 g/dL Normal 32.5-35.6 [facility] Comment on above: Performed By: #### V ANCP #### [address] WBC (Bld) [#/Vol] 19.5 10*3/uL High 4.1-10.5 [facility] Comment on above: Performed By: #### V ANCP #### [facility] [address] [place] [address] Leukocytes [#/volume] correc isa for nucleated erythrocytes in Blood by Automated counOrdered By: Antony Thompson on 03-01-2024 WBC corrected for nucl RBC Auto (Bld) [#/Vol] 19.5 10*3/uL High 4.1-10.5 [facility] MCH [Entitic mass] by Automa isa countOrdered By: Antony Thompson on 03-01-2024 MCH (RBC) [Entitic mass] 29.9 pg Normal 27.5-35.2 [facility] Comment on above: Performed By: #### V ANCP #### [facility] [address] [place] [address] MCHC Auto (RBC) [Mass/Vol]Or dered By: Antony Thompson on 03-01-2024 MCHC (RBC) [Mass/Vol] 33.9 g/dL 32.5-35.6 [facility] MCV [Entitic volume] by Auto mated countOrdered By: Antony Thompson on 03-01-2024 MCV (RBC) [Entitic vol] 88.1 fL Normal 83.5-101 [facility] Comment on above: Performed By: #### V ANCP #### [address] Magnesium [Mass/volume] in S flor or PlasmaOrdered By: Antony Thompson on 03-01-2024 Magnesium [Mass/Vol] 1.9 mg/dL Normal 1.9-2.7 [facility] Comment on above: Result Comment: PERF ORMED BY: [place] [address] PATHOLOGIST PAINTING MACHINE OPERATOR WILLI VILLEDA M.D. Performed By: #### V ANCP #### [address] No Panel InformationOrdered By: Antony Thompson on 03-01-2024 Estimated GFR (CKD-EPI) > 60.0 mL/Min [facility] Creatinine Clearance (Chem 82.82 [facility] Platelet mean volume [Entiti c volume] in Blood by Automated countOrdered By: Antony Thompson on 03-01-2024 Platelet mean volume (Bld) [Entitic vol] 7.2 fL Normal 6.6-10.1 [facility] Comment on above: Result Comment: PERF ORMED BY: [place] [address] PATHOLOGIST PAINTING MACHINE OPERATOR WILLI VILLEDA M.D. Performed By: #### V ANCP #### [address] Platelets [#/volume] in Bloo d by Automated countOrdered By: Antony Thompson on 03-01-2024 Platelets (Bld) [#/Vol] 223 10*3/uL Normal 150-450 [facility] Comment on above: Performed By: #### V ANCP #### [address] Potassium [Moles/volume] in Serum or PlasmaOrdered By: Antony Thompson on 03-01-2024 Potassium [Moles/Vol] 4.6 mmol/L Normal 3.5-5.1 [facility] Comment on above: Performed By: #### V ANCP #### [address] Serum or plasma anion gap de terminationOrdered By: Antony Thompson on 03-01-2024 Anion gap [Moles/Vol] 11.8 mmol/L Normal 6.0-15.0 [facility] Comment on above: Performed By: #### V ANCP #### [facility] [address] [place] [id number] [place] Sodium [Moles/volume] in Ser um or PlasmaOrdered By: Antony Thompson on 03-01-2024 Sodium [Moles/Vol] 136 mmol/L Normal 136-145 [facility] Comment on above: Performed By: #### V ANCP #### [facility] [address] [place] [address] [place] Urea nitrogen [Mass/volume] in Serum or PlasmaOrdered By: Antony Thompson on 03-01-2024 Urea nitrogen [Mass/Vol] 14 mg/dL Normal 7-25 [facility] Comment on above: Performed By: #### V ANCP #### [facility] [address] [place] [address] [place] Aerobic Cultureon 02-29-2024 Aerobic Culture Comment Abscess 3 No Growth 2 Days Comment Abscess 3 No Anaerobes Isolated 3 Days Comment Abscess 3 Gram Stain Result 2+ White Blood Cells No Bacteria Seen PERFORMED BY: [place] [address] PATHOLOGIST PAINTING MACHINE OPERATOR WILLI VILLEDA M.D. Normal [facility] Comment on above: Performed By: #### V ANCP #### [address] Aerobic Culture Comment Abscess 2 No Growth 2 Days Comment Abscess 2 No Anaerobes Isolated 3 Days Comment Abscess 2 Gram Stain Result 2+ White Blood Cells No Bacteria Seen PERFORMED BY: [place] [address] PATHOLOGIST PAINTING MACHINE OPERATOR WILLI VILLEDA M.D. Normal [facility] Comment on above: Performed By: #### V ANCP #### [facility] [address] [place] [id number] [place] Aerobic Culture Comment Abscess 1 No Growth 2 Days Comment Abscess 1 No Anaerobes Isolated 3 Days Comment Abscess 1 Gram Stain Result 2+ White Blood Cells No Bacteria Seen PERFORMED BY: [place] [id number] PATHOLOGIST PAINTING MACHINE OPERATOR WILLI VILLEDA M.D. Normal [facility] Comment on above: Performed By: #### V ANCP #### [facility] [address] ECG 12 lead ECGon 02-29-2024 ECG 12 lead ECG [facility] [place] [address] [place] [address] Electrocardiograph Report Signed Patient: Mily Guadalupe MR#: [id number] : 1955 Acct:[id number] Age/Sex: 68 / M ADM Date: 02/27/24 Loc: Room: 8L8344-1 Type: ADM IN Attending Dr: Antony Thompson DO Ordering Provider: Mily Mullins DO Date of Service: 02/29/24 ECG/ECG 12 lead ECG: preop Copies to: Test Reason : Blood Pressure : */* mmHG Vent. Rate : 79 BPM Atrial Rate : 79 BPM P-R Int : 190 ms QRS Dur : 88 ms QT Int : 366 ms P-R-T Axes : 55 31 48 degrees QTcB Int : 419 ms Normal sinus rhythm Normal ECG When compared with ECG of 07-Jun-2018 10:46, No significant change was found Confirmed by [facility] (137) on 02/29/2024 4:25:50 PM Referred By: Electronically Signed By: YULIANA MAC MD [facility] Transcribed By: MUS Signed By Yuliana Mac MD, [facility] 02/29/24 1625 Normal [facility] Gram stain for investigation of transfusion reactionOrdered By: Enoch Han on 02-29-2024 Microscopic observation Gram stain Nom (Unsp spec) No Anaerobes Isolated 1 Day [facility] Microscopic observation Gram stain Nom (Unsp spec) No Anaerobes Isolated 3 Days [facility] Microscopic observation Gram stain Nom (Unsp spec) No Anaerobes Isolated 1 Day [facility] Microscopic observation Gram stain Nom (Unsp spec) No Anaerobes Isolated 3 Days [facility] Microscopic observation Gram stain Nom (Unsp spec) No Anaerobes Isolated 1 Day [facility] Microscopic observation Gram stain Nom (Unsp spec) No Anaerobes Isolated 3 Days [facility] Andrea 02-29-2024 L Specimen: [id number] Received: 03/01/24 Status: KAEL Ayala Num: [id number] Spec Type: Surgical Subm Dr: Enoch Han DO Tissues: A Abscess (RT ELBOW, CORE) B Abscess (RT ELBOW CORE #2) C Abscess (RT ELBOW CORE #3) D Abscess (RT ELBOW CORE #4) Procedures: HE/4, Gross/Micro L3/4, AE1-AE3, BCL-2, BCL-6, CD10, CD20, CD3, CD5, Ki-67, PAX5 Age/ Patient Sex Location Account Attending Physician AlexandriaMily Henna 68/M 4N [id number] Antony Thompson DO SPEC NUM: [id number] RECD: 03/01/24 STATUS: KAEL AYALA NUM: [id number] [place]: 02/29/24 [facility] DR: Enoch Han DO ENTERED: 03/01/24 [facility] DR: SPEC TYPE: Surgical DEPT: S ORDERED: HE/4, Gross/Micro L3/4, AE1-AE3, BCL-2, BCL-6, CD10, CD20, CD3, CD5, Ki-67, PAX5 ORDERED: HE/4, Gross/Micro L3/4, AE1-AE3, BCL-2, BCL-6, CD10, CD20, CD3, CD5, Ki-67, PAX5 Supplemental Report Addendum 1 Entered: 03/22/24-7710 This case was sent to [facility] for consultation. Their diagnosis is as follows: A?C. Abscess, right elbow, biopsy: Atypical lymphoid infiltrate, morphologically similar to that seen in part D. D. 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 Please see attached consultation report from [facility] for diagnostic details. Addendum Signed (signature on file) Melany Gonzalez MD 03/22/24 1749 Specimen: [id number] Received: 03/01/24 Status: KAEL Motabryan Num: [id number] Spec Type: Surgical Subm Dr: Enoch Han DO Tissues: A Abscess (RT ELBOW, CORE) B Abscess (RT ELBOW CORE #2) C Abscess (RT ELBOW CORE #3) D Abscess (RT ELBOW CORE #4) Procedures: HE/4, Gross/Micro L3/4, AE1-AE3, BCL-2, BCL-6, CD10, CD20, CD3, CD5, Ki-67, PAX5 Patient: Mily Guadalupe [id number] (Continued) Specimen: [id number] Received: 03/01/24 (Continued) Signed (signature on file) Melany Gonzalez MD 03/06/24 1705 Specimen: [id number] Received: 03/01/24 Status: KAEL Ayala Num: [id number] Spec Type: Surgical Subm Dr: Enoch Han, DO Tissues: A Abscess (RT ELBOW, CORE) B Abscess (RT ELBOW CORE #2) C Abscess (RT ELBOW CORE #3) D Abscess (RT ELBOW CORE #4) Procedures: HE/4, Gross/Micro L3/4, AE1-AE3, BCL-2, BCL-6, CD10, CD20, CD3, CD5, Ki-67, PAX5 Patient: Mily Guadalupe [id number] (Continued) Specimen: [id number] Received: 03/01/24 (Continued) Pathological Diagnosis Preliminary report A. Abscess, right elbow, biopsy: Scattered foci of atypical lymphoid proliferation, consistent with high-grade B-cell lymphoma. B. Abscess, right elbow, biopsy: Scattered foci of atypical lymphoid proliferation, consistent with high-grade B-cell lymphoma. C. Abscess, right elbow, biopsy: Scattered foci of atypical lymphoid proliferation, consistent with high-grade B-cell lymphoma. D. 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 Pending consultation. Clinical Information Right elbow abscess Gross Description Received are 4 formalin filled containers each labeled with the patient's name, date of and specific specimen site. A. Further labeled right elbow abscess core are 3 portions of yellow-pink lobulated adipose tissue measuring in aggregate 1.7 x 1.1 x 0.4 cm. The specimen is entirely submitted in A1. B. Further labeled abscess core is a 1.4 x 0.7 x 0.4 cm portion of pink-tim rubbery soft tissue. The specimen is bisected revealing an unremarkable cut surface and entirely submitted in B1. C. Further labeled abscess core #3 is a 2.1 x 1.3 x 0.4 cm portion of tim-pink soft tissue. The specimen is trisected revealing a tim cut surface and entirely submitted in C1. Specimen: [id number] Received: 03/01/24 Status: KAEL Ayala Num: [id number] Spec Type: Surgical Subm Dr: Enoch Han, Tissues: A Abscess (RT ELBOW, CORE) B Abscess (RT ELBOW CORE #2) C Abscess (RT ELBOW CORE #3) D Abscess (RT ELBOW CORE #4) Procedures: HE/4, Gross/Micro (more content not included)... Normal [facility] Serum or plasma trough vanco mycin levelOrdered By: Antony Thompson on 02-29-2024 Vancomycin trough [Mass/Vol] 11.4 ug/mL 10.0-20.0 [facility] Comment on above: Last dose: - Vancomycin [Mass/volume] in Serum or Plasma --peakOrdered By: Antony Thompson on 02-29-2024 Vancomycin peak [Mass/Vol] 30.5 ug/mL 20.0-40.0 [facility] Comment on above: Last dose: - Vancomycin,Peakon 02-29-2024 Vancomycin,Peak 30.5 ug/mL Normal 20.0-40.0 [facility] Comment on above: Order Comment: Comme nt ?DRAW 1 HOUR AFTER INFUSION COMPLETES Date of last dose?: 20240227 Time of last dose?: 2299 Result Comment: Last dose: - PERFORMED BY: [place] [address] PATHOLOGIST PAINTING MACHINE OPERATOR WILLI VILLEDA M.D. Performed By: #### V ANCP #### [facility] [address] [place], [place] [id number] [facility] Vancomycin,Troughon 02-29-20 Vancomycin,Trough 11.4 ug/mL Normal 10.0-20.0 [facility] Comment on above: Order Comment: Time of next dose? 2299 Date of last dose?: 20240227 Time of last dose?: 2299 Result Comment: Last dose: - PERFORMED BY: [place] [address] PATHOLOGIST PAINTING MACHINE OPERATOR WILLI VILLEDA M.D. Performed By: #### C UBLD #### [address] Activated partial thrombopla stin time (aPTT) in platelet poor plasma by coagulation aOrdered By: Antony Thompson on 02-28-2024 aPTT Coag (PPP) [Time] 31.3 s 25.1-36.5 [facility] Comment on above: A hematocrit value g reater than 55% may lead to inaccurate results in coagulation testing. Patients having hematocrit values >55% require a special collection tube for coagulation studies. Please contact the laboratory at [phone] for redraw instructions. Alanine aminotransferase [En zymatic activity/volume] in Serum or PlasmaOrdered By: Antony Thompson on 02-28-2024 ALT [Catalytic activity/Vol] 13 U/L Normal 7-52 [facility] Comment on above: Performed By: #### C UBLD #### [address] Albumin [Mass/volume] in Ser um or Plasma by Bromocresol green (BCG) dye binding methoOrdered By: Antony Thompson on 02-28-2024 Albumin BCG dye [Mass/Vol] 3.4 g/dL Low 3.5-5.7 [facility] Alkaline phosphatase [Enzyma tic activity/volume] in Serum or PlasmaOrdered By: Antony Thompson on 02-28-2024 ALP [Catalytic activity/Vol] 46 U/L Normal 34-104 [facility] Comment on above: Performed By: #### C UBLD #### [address] Aspartate aminotransferase [ Enzymatic activity/volume] in Serum or PlasmaOrdered By: Antony Thompson on 02-28-2024 AST [Catalytic activity/Vol] 13 U/L Normal 13-39 [facility] Comment on above: Performed By: #### C UBLD #### [address] Automated basophil %Ordered By: Antony Thompson on 02-28-2024 Basophils/100 WBC (Bld) 0.3 % Normal . [facility] Comment on above: Performed By: #### C UBLD #### [address] Automated basophil countOrde red By: Antony Thompson on 02-28-2024 Basophils (Bld) [#/Vol] 0.0 10*3/uL Normal 0.0-0.2 [facility] Comment on above: Result Comment: PERF ORMED BY: [place] [address] PATHOLOGIST PAINTING MACHINE OPERATOR WILLI VILLEDA M.D. Performed By: #### C UBLD #### [address] Automated blood monocyte cou ntOrdered By: Antony Thompson on 02-28-2024 Monocytes (Bld) [#/Vol] 1.3 10*3/uL High 0.0-0.8 [facility] Comment on above: Performed By: #### C UBLD #### [address] Automated eosinophil %Ordere d By: Antony Thompson on 02-28-2024 Eosinophils/100 WBC (Bld) 1.4 % Normal . [facility] Comment on above: Performed By: #### C UBLD #### [address] Automated eosinophil countOr dered By: Antony Thompson on 02-28-2024 Eosinophils (Bld) [#/Vol] 0.2 10*3/uL Normal 0.0-0.45 [facility] Comment on above: Performed By: #### C UBLD #### [address] Automated monocyte %Ordered By: Antony Thompson on 02-28-2024 Monocytes/100 WBC (Bld) 8.9 % Normal . [facility] Comment on above: Performed By: #### C UBLD #### [address] Automated neutrophil %Ordere d By: Antony Thompson on 02-28-2024 Neutrophils/100 WBC (Bld) 64.2 % Normal . [facility] Comment on above: Performed By: #### C UBLD #### [address] Bilirubin.total [Mass/volume ] in Serum or PlasmaOrdered By: Antony Thompson on 02-28-2024 Bilirubin [Mass/Vol] 0.7 mg/dL Normal 0.3-1.0 [facility] Comment on above: Performed By: #### C UBLD #### [address] humerus RT w conon 2023 CT humerus RT w con [facility] [place] [address] [place] [address] CT Scan Report Signed Patient: Mily Guadalupe MR#: [id number] : 1955 Acct:[id number] Age/Sex: 68 / M ADM Date: 02/27/24 Loc: 4N Room: 4C1349-3 Type: ADM IN Attending Dr: Antony Thompson DO Copies to: Anotny Thompson DO Ordering Provider: Antony Thompson DO Date of Service: 02/28/24 CT/CT humerus RT w con: mass on distal medial arm CT of the right humerus contrast TECHNIQUE: 90 cc of [id number] CT exam was performed using one or more the following dose reduction techniques: Automated exposure control, adjustment of the MA and/or Kv according to patient size, or use of the iterative reconstruction technique. COMPARISON: None HISTORY: Mass involving the distal medial right arm and right axilla. Leukocytosis. Intact bony structures. No acute bony destruction. No fracture. Adequate bony alignment. Axillary lymphadenopathy. Largest measures 2.8 x 1.5 cm and contains subcentimeter hypodensity. Irregular heterogeneous fluid collection in the distal medial portion of the right arm heterogeneous and somewhat organized suspected represent developing abscess. No subcutaneous air. No air identified within the fluid collection. Adjacent inflammation and skin thickening suggesting cellulitis. This abuts the neurovascular bundle. Small layering pleural effusion. Visualized ribs unremarkable. Scapula intact. Clavicle intact. Humerus intact. CT/CT humerus RT w con IMPRESSION: Heterogeneous subcutaneous collection medial aspect of the distal arm measuring up to 3.7 cm concerning for developing abscess. Adjacent cellulitis. Axillary lymphadenopathy.. Impression dictated by: Ervin Coon M.D.02/28/2024 12:48 PM Dictation Location: [place] [address] Transcribed By: [facility] 02/28/24 1248 Dictated By: Ervin Coon DO 02/28/24 1240 Signed By: 02/28/24 1248 Normal [facility] Coagulation Profileon 2023 aPTT Coag (Bld) [Time] 31.3 s Normal 25.1-36.5 [facility] Comment on above: Result Comment: A he matocrit value greater than 55% may lead to inaccurate results in coagulation testing. Patients having hematocrit values >55% require a special collection tube for coagulation studies. Please contact the laboratory at [phone] for redraw instructions. PERFORMED BY: [place] [address] PATHOLOGIST PAINTING MACHINE OPERATOR WILLI VILLEDA M.D. Performed By: #### P P #### [address] Complete Blood Count Auto Di ffon 02-28-2024 Erythrocyte distribution width (RBC) [Ratio] 13.5 % Normal 12.0-14.8 [facility] Comment on above: Performed By: #### C UBLD #### [address] Hematocrit (Bld) [Volume fraction] 42.4 % Normal 38.8-50.0 [facility] Comment on above: Performed By: #### C UBLD #### [address] Hemoglobin (Bld) [Mass/Vol] 14.4 g/dL Normal 13.0-17.0 [facility] Comment on above: Performed By: #### C UBLD #### [address] MCH (RBC) [Entitic mass] 30.1 pg Normal 27.5-35.2 [facility] Comment on above: Performed By: #### C UBLD #### [address] MCV (RBC) [Entitic vol] 88.4 fL Normal 83.5-101 [facility] Comment on above: Performed By: #### C UBLD #### [address] Mean Corpuscular HGB Conc 34.0 g/dL Normal 32.5-35.6 [facility] Comment on above: Performed By: #### C UBLD #### [address] NRBC% 0.1 /100{WBC} Normal 0-0.5 [facility] Comment on above: Performed By: #### C UBLD #### [address] Platelet mean volume (Bld) [Entitic vol] 6.9 fL Normal 6.6-10.1 [facility] Comment on above: Performed By: #### C UBLD #### [address] Platelets (Bld) [#/Vol] 191 10*3/uL Normal 150-450 [facility] Comment on above: Performed By: #### C UBLD #### [address] RBC (Bld) [#/Vol] 4.79 10*6/uL Normal 3.90-5.60 [facility] Comment on above: Performed By: #### C UBLD #### [address] Comprehensive Metabolic Pane andrea 02-28-2024 Albumin [Mass/Vol] 3.4 g/dL Low 3.5-5.7 [facility] Comment on above: Performed By: #### C UBLD #### [address] Anion gap [Moles/Vol] 11.3 mmol/L Normal 6.0-15.0 [facility] Comment on above: Performed By: #### C UBLD #### [address] Calcium [Mass/Vol] 8.4 mg/dL Low 8.6-10.3 [facility] Comment on above: Performed By: #### C UBLD #### [address] Chloride [Moles/Vol] 105 mmol/L Normal 98-107 [facility] Comment on above: Performed By: #### C UBLD #### [address] CO2 [Moles/Vol] 28.4 mmol/L Normal 21.0-31.0 [facility] Comment on above: Performed By: #### C UBLD #### [address] Creatinine [Mass/Vol] 1.07 mg/dL Normal 0.70-1.30 [facility] Comment on above: Performed By: #### C UBLD #### [place] [address] [place] Creatinine Clr Calc Pharmacy 79.58 Normal [facility] Comment on above: Performed By: #### C UBLD #### [place] [address] [place] GFR/1.73 sq M.predicted MDRD (S/P/Bld) [Vol rate/Area] mL/min/{1.73_m2} Normal [facility] Comment on above: Performed By: #### C UBLD #### [address] Glucose [Mass/Vol] 92 mg/dL Normal 70-100 [facility] Comment on above: Result Comment: Formerly named [facility] Glucose Reference Range is dependent on time and content of last meal. Glucose of more than 200 mg/dL in a nonstressed, ambulatory subject supports the diagnosis of Diabetes Mellitus. ADA recommended reference range Performed By: #### C UBLD #### [address] Potassium [Moles/Vol] 4.7 mmol/L Normal 3.5-5.1 [facility] Comment on above: Performed By: #### C UBLD #### [place] [address] [place] Sodium [Moles/Vol] 140 mmol/L Normal 136-145 [facility] Comment on above: Performed By: #### C UBLD #### [address] Urea nitrogen [Mass/Vol] 13 mg/dL Normal 7-25 [facility] Comment on above: Performed By: #### C UBLD #### [address] Family Medicine Office/Clini c Noteon 02-28-2024 Family Medicine Office/Clinic Note Family Medicine Office/Clinic Note HPI Staff Mily is a 68 year old male presenting with lump on arm He went to [facility] on Tuesday Morning 02/26/24 Txd with Sulfamethoxazole Took one last night this is the only one he took Was not able to drain because of how hard it was History of Present Illness pt presents today for follow up on abscess on elbow. went to urgent care yesterday Review of Systems PHQ Score Initial Depression Screen Score: 0 SCORE Physical Exam Vitals & Measurements T: 36.3 ?C(Temporal Artery) HR: 80(Peripheral) RR: 18 BP: 136/84 SpO2: 99% HT: 73 in HT: 185.0 cm WT: 99.9 kg WT: 219.78 lb BMI: 29.19 General: alert, no acute distress ENMT: oral mucosa moist, no pharyngeal erythema or exudate Cardiovascular: regular rate and rhythm, normal peripheral perfusion Respiratory: Lungs CTA, respirations non labored Extremities: no deformity, no trauma Neurological: oriented x 4, LOC appropriate for age, CN II-XII intact, motor strength equal & normal bilaterally, speech normal right elbow area is red, warm to touch, tender to touch and swollen Assessment/Plan 1. Cellulitis of right elbow (L03.113: Cellulitis of right upper limb) right elbow is more swollen, red, warm to touch than last visit. pt is very uncomfortable with the pain. states he gets a shocky feelings and it shoots up his arm. Dr. Arita was consulted and feels there may be muscle, nerve involvement. Called ER at [facility] they will do further work up. 2. Non-smoker (Z78.9: Other specified health status) continue not smoking Ordered: Body Mass Index (BMI) documented 3008F Current tobacco non-user 1036F Depression Screening Negative 3352F Influenza immunization status assessed 1030F Medication list documented in medical record 1159F Most recent diastolic blood pressure 80-89 mm Hg 3079F Patient screen for fall risk: no falls in last year or 1 fall with no injury in last year 1101F Review of all meds by a prescribing practitioner or clinical pharmacist documented in EHR 1160F 3. BMI 29.0-29.9,adult (Z68.29: Body mass index [BMI] 29.0-29.9, adult) BMI education given Ordered: Body Mass Index (BMI) documented 3008F Current tobacco non-user 1036F Depression Screening Negative 3352F Influenza immunization status assessed 1030F Medication list documented in medical record 1159F Most recent diastolic blood pressure 80-89 mm Hg 3079F Patient screen for fall risk: no falls in last year or 1 fall with no injury in last year 1101F Review of all meds by a prescribing practitioner or clinical pharmacist documented in EHR 1160F Follow-up No qualifying data available Problem List/Past Medical History Ongoing BPH with urinary obstruction Bronchitis Cellulitis of right elbow Cough Elevated PSA Erectile dysfunction Feeling of incomplete bladder emptying Frequency of urination Herpes zoster CAROL on CPAP Sinusitis Urethral stricture in male Urinary urgency Weak urine stream Historical Defecation urgency Procedure/Surgical History Colonoscopy (01/13/2023), Cystoscopy (06/02/2020), TRUS - Transrectal ultrasonography (06/07/2018), Cystoscopy (01/05/2016), Transrectal biopsy of prostate using ultrasound (US) guidance (03/08/2011), Tonsillectomy. Medications famotidine 20 mg Tab, 20 mg= 1 tab(s), Oral, Daily finasteride 5 mg Tab, 5 mg= 1 tab(s), Oral, Daily, 11 refills Flomax 0.4 mg Cap, 0.8 mg= 2 cap(s), Oral, Daily, 11 refills Multi Vitamin+ [employer] [place] cpap machine supplies: head gear, mask, tubing and filters, See Instructions, 1 refills sulfamethoxazole-trimethop rim 800 mg-160 mg Tab Allergies No Known Medication Allergies Social History Tobacco - Denies Tobacco Use, 06/02/2020 Never (less than 100 in lifetime) Tobacco Use:. Never Smokeless Tobacco Use:. Cigarettes, Household tobacco concerns: No. Yes, 02/27/2024 Family History Prostate cancer: Grandparent. Throat cancer: Father. Immunizations Vaccine Date Status influenza virus vaccine, inactivated 05/14/2022 Recorded SARS-CoV-2 (COVID-19) [id number] 05/14/2022 Recorded SARSCoV2 mRNA(vhirctfhp-qils-tpuhzg ) vac 12/07/2021 Recorded SARS-CoV-2 (COVID-19) mRNA BNT-162b2 vax 05/10/2021 Recorded SARS-CoV-2 (COVID-19) Ad26 vaccine 10/18/2020 Recorded SARS-CoV-2 (COVID-19) mRNA BNT-162b2 vax 09/27/2020 Recorded SARS-CoV-2 (COVID-19) Ad26 vaccine 09/02/2020 Recorded pneumococcal 13-valent vaccine 06/05/2020 Recorded influenza virus vaccine, inactivated 06/05/2020 Recorded Patient was seen and evaluated by myself independent of the nurse practitioner. Recommendation was to go to the ER given the physical exam findings. I personally called the ER with the story. Normal [facility] Comment on above: Result Comment: Elec tronically Signed By: Juan J EATON, Burton Rangel.br\Date and Time Signed: 02/28/24 12:58 EDT INR in Platelet poor plasma by Coagulation assayOrdered By: Antony Thompson on 02-28-2024 INR Coag (PPP) [Relative time] 1.1 {INR} Normal [facility] Comment on above: INR Therapeutic Rang e A) Pre- and Peroperative OAT started two weeks before surgery. NOT HIP SURGERY: 1.5 - 2.5 HIP SURGERY: 2 - 3B) Primary and secondary prevention of venous THROMBOSIS: 2 - 3C) Active venous thrombosis, pulmonary embolismand prevention of recurrent venous thrombosis: 2 - 3D) Prevention of arterial thromboembolismincluding patients with mechanical heart valves: 3 - 4.5 Result Comment: INR Therapeutic Range A) Pre- and Peroperative OAT started two weeks before surgery. NOT HIP SURGERY: 1.5 - 2.5 HIP SURGERY: 2 - 3 B) Primary and secondary prevention of venous THROMBOSIS: 2 - 3 C) Active venous thrombosis, pulmonary embolism and prevention of recurrent venous thrombosis: 2 - 3 D) Prevention of arterial thromboembolism including patients with mechanical heart valves: 3 - 4.5 Performed By: #### P P #### [address] Leukocytes [#/volume] in Blo od by Automated countOrdered By: Antony Thompson on 02-28-2024 WBC (Bld) [#/Vol] 14.5 10*3/uL High 4.1-10.5 [facility] Comment on above: Performed By: #### C UBLD #### [address] Lymphocytes [#/volume] in Bl ood by Automated countOrdered By: Antony Thompson on 02-28-2024 Lymphocytes (Bld) [#/Vol] 3.7 10*3/uL Normal 1.00-4.8 [facility] Comment on above: Performed By: #### C UBLD #### [place] [address] [place] Lymphocytes/100 leukocytes i n Blood by Automated countOrdered By: Antony Thompson on 02-28-2024 Lymphocytes/100 WBC (Bld) 25.2 % Normal . [facility] Comment on above: Performed By: #### C UBLD #### [address] MR humerus RT wo/w conon MR humerus RT wo/w con [facility] [place] [address] [place] [address] MRI Report Signed Patient: Mily Guadalupe MR#: [id number] : 1955 Acct:[id number] Age/Sex: 68 / M ADM Date: 02/27/24 Loc: Room: 9X2194-8 Type: ADM IN Attending Dr: Antony Thompson DO Copies to: DO Antony Ruiz DO Ordering Provider: Ata Celestin DO Date of Service: 02/28/24 MR/MR humerus RT wo/w con: mass medial brachium, concern for necrotic lymph MR right humerus with and without contrast Technique routine with contrast HISTORY: Mass in the distal medial aspect of the right arm. Mass in the right axilla. Leukocytosis. Multiple enlarged right axillary lymph nodes identified. Largest measures 3.0 x 1.7 cm. There is somewhat organized collection of fluid and medial portion of the distal arm in subcutaneous region. Adjacent to the and organized fluid there is extensive edematous changes. Skin thickening present. No metallic artifact identified. Bony structures intact. No bone marrow edema. Normal signal musculature identified. No edematous changes of the muscles. MR/MR humerus RT wo/w con IMPRESSION: Subcutaneous ill-defined fluid collection with adjacent extensive soft tissue edema and skin thickening. Concern for developing abscess. Adjacent cellulitis. No significant muscular or bony involvement. No axillary lymphadenopathy. Impression dictated by: Ervin Coon M.D.02/28/2024 12:53 PM Dictation Location: [place] [address] Transcribed By: [facility] 02/28/24 1253 Dictated By: Ervin Coon DO 02/28/24 1248 Signed By: 02/28/24 1253 Normal [facility] Magnesiumon 02-28-2024 Magnesium [Mass/Vol] 2.0 mg/dL Normal 1.9-2.7 [facility] Comment on above: Result Comment: PERF ORMED BY: [place] [address] PATHOLOGIST PAINTING MACHINE OPERATOR WILLI VILLEDA M.D. Performed By: #### C UBLD #### [address] Neutrophils [#/volume] in Bl ood by Automated countOrdered By: Antony Thompson on 02-28-2024 Neutrophils (Bld) [#/Vol] 9.3 10*3/uL High 1.8-7.7 [facility] Comment on above: Performed By: #### C UBLD #### [address] Nucleated erythrocytes [Pres ence] in Blood by Automated countOrdered By: Antony Thompson on 02-28-2024 Nucleated RBC Auto Ql (Bld) 0.1 /100{WBC} 0-0.5 [facility] Protein [Mass/volume] in Ser um or PlasmaOrdered By: Antony Thompson on 02-28-2024 Protein [Mass/Vol] 5.6 g/dL Low 6.4-8.9 [facility] Comment on above: Performed By: #### C UBLD #### [address] Prothrombin time (PT)Ordered By: Antony Thompson on 02-28-2024 PT Coag (PPP) [Time] 13.1 s High 9.0-12.9 [facility] Comment on above: A hematocrit value g reater than 55% may lead to inaccurate results in coagulation testing. Patients having hematocrit values >55% require a special collection tube for coagulation studies. Please contact the laboratory at [phone] for redraw instructions. Result Comment: A he matocrit value greater than 55% may lead to inaccurate results in coagulation testing. Patients having hematocrit values >55% require a special collection tube for coagulation studies. Please contact the laboratory at [phone] for redraw instructions. Performed By: #### P P #### [address] Serum globulin measurement b y calculation (mass/volume)Ordered By: Antony Thompson on 02-28-2024 Globulin (S) [Mass/Vol] 2.2 g/dL [facility] Comment on above: Performed By: #### C UBLD #### [address] Serum or plasma albumin/glob ulin mass ratioOrdered By: Antony Thompson on 02-28-2024 Albumin/Globulin [Mass ratio] 1.5 {ratio} [facility] Comment on above: Performed By: #### C UBLD #### [address] XR elbow RT 2Von 02-28-2024 XR elbow RT 2V [facility] [place] [address] XRay Report Signed Patient: Mily Guadalupe MR#: [id number] : 1955 Acct:[id number] Age/Sex: 68 / M ADM Date: 02/27/24 Loc: Room: 2F7584-1 Type: ADM IN Attending Dr: Antony Thompson DO Copies to: DO Antony Ruiz DO Ordering Provider: Ata Celestin DO Date of Service: 02/28/24 XR/XR elbow RT 2V: pain XR elbow RT 2V 02/28/2024 10:40 AM SIGNS AND SYMPTOMS: Injury to right elbow posterior right elbow pain PROTOCOL: Frontal and lateral radiographs of the right elbow COMPARISON: None FINDINGS: Soft tissue swelling is noted along the medial aspect of the right distal humerus and elbow. There is enthesophyte formation along the lateral epicondyle and along the olecranon. There is no joint effusion. XR/XR elbow RT 2V IMPRESSION: No fracture or dislocation. Soft tissue swelling is noted along the medial aspect of the right distal humerus and elbow. Impression dictated by: Ronaldo Kenyon M.D.02/28/2024 4:12 PM Dictation Location: [place] [address] Transcribed By: [facility] 02/28/24 1612 Dictated By: Ronaldo Kenyon II, MD 02/28/24 1609 Signed By: 02/28/24 1612 Normal [facility] Phys[facility] Ambulatory Visit Summaryon 0 02-27-2024 Ambulatory Visit Summary Ambulatory Visit Summary MILY GUADALUPE :1955 Visit Date:02/27/2024 Ambulatory Visit Instructions Your Diagnosis Cellulitis of right elbow Non-smoker BMI 29.0-29.9,adult Your Care Team Attending Physician - Rashida Gayle Primary Care Physician - Rashida Gayle This Is Your Medications List Misc Prescription ([employer] cpap machine supplies: head gear, mask, tubing and filters) famotidine (famotidine 20 mg Tab) finasteride (finasteride 5 mg Tab) multivitamin (Multi Vitamin+) sulfamethoxazole-trimethop rim (sulfamethoxazole-trimetho prim 800 mg-160 mg Tab) tamsulosin (Flomax 0.4 mg Cap) Procedures Performed Colonoscopy (01/13/2023), Cystoscopy (06/02/2020), TRUS - Transrectal ultrasonography (06/07/2018), Cystoscopy (01/05/2016), Transrectal biopsy of prostate using ultrasound (US) guidance (03/08/2011), Tonsillectomy. Discharge Vitals Temperature (Temporal Artery) 36.3 ?C Heart Rate (Peripheral) 80 Respiratory Rate 18 Blood Pressure 136/84 Height 185.0 cm Height 73 in Weight 99.9 kg Weight 219.78 lb BMI 29.19 What to do next Scheduled Follow-Up Appointments Tuesday 8:00 AM EDT With: MERRY Fisher APRN, Marika Mao Where: [facility] [facility] [address] [place] [address] [place] [address]- Medications What How Much When Why Instructions Unchanged famotidine (famotidine 20 mg Tab) 1 Tablets By Mouth Every day 20 Unknown, Oral Unchanged finasteride (finasteride 5 mg Tab) 1 Tablets By Mouth Every day Unchanged Misc Prescription ([employer] [place] cpap machine supplies: head gear, mask, tubing and filters) See instructions Herpes zoster BMI 29.0-29.9,adult Non-smoker Gregorio cpap machine supplies: head gear, mask, tubing and filters Unchanged multivitamin (Multi Vitamin+) Unchanged sulfamethoxazole-trimethop rim (sulfamethoxazole-trimetho prim 800 mg-160 mg Tab) TAKE 1 TABLET BY MOUTH TWICE DAILY FOR 10 DAYS Unchanged tamsulosin (Flomax 0.4 mg Cap) 2 Capsules By Mouth Every day Allergies No Known Medication Allergies Problems Ongoing - Any problem that you are currently receiving treatment for. BPH with urinary obstruction Bronchitis Cellulitis of right elbow Cough Elevated PSA Erectile dysfunction Feeling of incomplete bladder emptying Frequency of urination Herpes zoster CAROL on CPAP Sinusitis Urethral stricture in male Urinary urgency Weak urine stream Historical - Any problem that you are no longer receiving treatment for. Defecation urgency Patient Survey You may receive a survey via text or e-mail asking about your office visit. Please share your experience with us by completing your survey. We appreciate your feedback and thank you for choosing us for your care. Normal [facility] Bacterial blood cultureOrder ed By: Antony Thompson on 02-27-2024 Bacteria identified Cx Nom (Bld) NO GROWTH 5 DAYS [facility] Blood Cultureon 02-27-2024 Bacteria identified Cx Nom (Bld) NO GROWTH 5 DAYS PERFORMED BY: [facility] [address] [address] PATHOLOGIST PAINTING MACHINE OPERATOR WILLI VILLEDA M.D. Normal [facility] Comment on above: Performed By: #### C UBLD #### [facility] [address] [id number] [facility] Family Medicine Office/Clini c Noteon 02-16-2024 Family Medicine Office/Clinic Note Family Medicine Office/Clinic Note [facility] Staff Mily is a 68 year old male presenting for acute visit Acute: lump right arm/elbow, red and swollen, sometimes warm to the touch, He was working on the tree house and pushed on the area pretty hard to get in there to use some screws not sure if maybe a spider bit him or just from the pressure he exerted on the arm. Happened about a week ago. Couple days ago swelling went down thought well it's getting better but by end of day back to swollen. Has used a roll on pain med on it and advil combo med and it takes the edge off Patient brought his MRI of prostate with him and prostate okay but has enlarged iliac lymph nodes is that something that needs treated. History of Present Illness pt presents today with red swollen right elbow Review of Systems PHQ Score Initial Depression Screen Score: 0 SCORE Physical Exam Vitals & Measurements T: 37.1 ?C(Temporal Artery) HR: 88(Peripheral) RR: 14 BP: 100/68 SpO2: 96% HT: 73 in HT: 185 cm WT: 100.5 kg WT: 221.1 lb BMI: 29.36 General: alert, no acute distress ENMT: oral mucosa moist, no pharyngeal erythema or exudate Cardiovascular: regular rate and rhythm, normal peripheral perfusion Respiratory: Lungs CTA, respirations non labored Extremities: no deformity, no trauma Neurological: oriented x 4, LOC appropriate for age, CN II-XII intact, motor strength equal & normal bilaterally, speech normal right elbow is red, swollen and warm to touch Assessment/Plan 1. Cellulitis of right elbow (L03.113: Cellulitis of right upper limb) pt presents today with what appears to be cellulitis of right elbow. he was working on a tree house. possibly bit by something. will order keflex and medrol dose pack. continue advil for pain. monitor symptoms. if they worsen he was instructed to go to ER Ordered: cephalexin, 500 mg = 1 cap(s), Oral, QID, X 10 day(s), # 40 cap(s), Refills(s) 0, Pharmacy: [facility], 185, cm, 02/16/24 10:23:00 EDT, Height/Length Dosing, 100.5, kg, 02/16/24 10:23:00 EDT, Weight Dosing methylPREDNISolone, = 1 packet(s), Oral, As Directed, as directed on package labeling, X 6 day(s), # 21 tab(s), Refills(s) 0, Pharmacy: [facility], 185, cm, 02/16/24 10:23:00 EDT, Height/Length Dosing, 100.5, kg, 02/16/24 10:23:00 EDT, Weight Dosing 2. BMI 29.0-29.9,adult (Z68.29: Body mass index [BMI] 29.0-29.9, adult) bmi education Ordered: cephalexin, 500 mg = 1 cap(s), Oral, QID, X 10 day(s), # 40 cap(s), Refills(s) 0, Pharmacy: [facility], 185, cm, 02/16/24 10:23:00 EDT, Height/Length Dosing, 100.5, kg, 02/16/24 10:23:00 EDT, Weight Dosing methylPREDNISolone, = 1 packet(s), Oral, As Directed, as directed on package labeling, X 6 day(s), # 21 tab(s), Refills(s) 0, Pharmacy: [facility], 185, cm, 02/16/24 10:23:00 EDT, Height/Length Dosing, 100.5, kg, 02/16/24 10:23:00 EDT, Weight Dosing 3. Over weight (E66.3: Overweight) Ordered: cephalexin, 500 mg = 1 cap(s), Oral, QID, X 10 day(s), # 40 cap(s), Refills(s) 0, Pharmacy: [facility], 185, cm, 02/16/24 10:23:00 EDT, Height/Length Dosing, 100.5, kg, 02/16/24 10:23:00 EDT, Weight Dosing methylPREDNISolone, = 1 packet(s), Oral, As Directed, as directed on package labeling, X 6 day(s), # 21 tab(s), Refills(s) 0, Pharmacy: [facility], 185, cm, 02/16/24 10:23:00 EDT, Height/Length Dosing, 100.5, kg, 02/16/24 10:23:00 EDT, Weight Dosing 4. Nonsmoker (Z78.9: Other specified health status) continue not smoking Ordered: cephalexin, 500 mg = 1 cap(s), Oral, QID, X 10 day(s), # 40 cap(s), Refills(s) 0, Pharmacy: [facility], 185, cm, 02/16/24 10:23:00 EDT, Height/Length Dosing, 100.5, kg, 02/16/24 10:23:00 EDT, Weight Dosing methylPREDNISolone, = 1 packet(s), Oral, As Directed, as directed on package labeling, X 6 day(s), # 21 tab(s), Refills(s) 0, Pharmacy: [facility], 185, cm, 02/16/24 10:23:00 EDT, Height/Length Dosing, 100.5, kg, 02/16/24 10:23:00 EDT, Weight Dosing Follow-up No qualifying data available Problem List/Past Medical History Ongoing BPH with urinary obstruction Bronchitis Cellulitis of right elbow Cough Elevated PSA Erectile dysfunction Feeling of incomplete bladder emptying Frequency of urination Herpes zoster CAROL on CPAP Sinusitis Urethral stricture in male Urinary urgency Weak urine stream Historical Defecation urgency Procedure/Surgical History Colonoscopy (01/13/2023), Cystoscopy (06/02/2020), TRUS - Transrectal ultrasonography (06/07/2018), Cystoscopy (01/05/2016), Transrectal biopsy of prostate using ultrasound (US) guidance (03/08/2011), Tonsillectomy. Medications cephalexin 500 mg Cap, 500 mg= 1 cap(s), Oral, QID famotidine 20 mg Tab, 20 mg= 1 tab(s), Oral, Daily finasteride 5 mg Tab, 5 mg= 1 tab(s), Oral, Daily, 11 refills Flomax 0.4 mg Cap, 0.8 mg= 2 cap(s), Oral, Daily, 11 refills Medrol 4 mg Tab, 1 packet(s (more content not included)... Normal [facility] Comment on above: Result Comment: Elec tronically Signed By: Rashida Gayle\Date and Time Signed: 02/16/24 10:58 EDT RAD - MRI Reporton RAD - MRI Report [id number] Normal [facility] ISTAT XRay CREon 01-09-2024 ISTAT GFR > 60.0 Normal [facility] Comment on above: Result Comment: PERF ORMED BY: [place] [address] PATHOLOGIST PAINTING MACHINE OPERATOR WILLI VILLEDA M.D. Performed By: #### C UBLD #### [address] MR prostate wo/w conon 01-08 MR prostate wo/w con [facility] Main [place] [address] [place] [address] MRI Report Signed Patient: Mily Guadalupe MR#: [id number] : 1955 Acct:[id number] Age/Sex: 68 / M ADM Date: 01/09/24 Loc: Room: Type: [facility] Attending Dr: Marika JURADO Copies to: RHIANNON Knight Ordering Provider: RHIANNON Knight Date of Service: 01/09/24 MR/MR prostate wo/w con: R79.20 EXAMINATION: MR prostate wo/w con HISTORY: Elevated PSA levels. COMPARISON: None. TECHNIQUE: Multiparametric imaging of the prostate gland was performed with IV contrast. FINDINGS: Prostate Dimensions: 5.6 x 4.4 x 6.8 cm. Prostate Volume: 87 mL. Peripheral Zone: Heterogenous inT2 signal suggestive of prior prostatitis. No suspicious T2 or ADC map abnormality is identified to suggest prostate malignancy. Central/Transitional Zone: BPH changes. Seminal Vesicles: Unremarkable Neurovascular bundles: Unremarkable. Lymphadenopathy: Enlarged bilateral external iliac lymph nodes, largest measuring 1.5 cm in short axis. Bladder: No focal lesion. Bowel: The visualized bowel is without acute abnormality. Peritoneal Cavity: Small amount of free fluid. Bones: No suspicious bony lesion. MR/MR prostate wo/w con IMPRESSION: 1. No definitive MRI evidence of clinically significant prostate cancer. 2. BPH. 3. Enlarged bilateral external iliac lymph nodes, largest measuring 1.5 cm in short axis. Finding is nonspecific. Impression dictated by: Price Barker Jr., D.OArnoldo01/09/2024 3:14 PM Dictation Location: [place] [address] Transcribed By: PWS 01/09/24 1514 Dictated By: Price Barker Jr DO 01/09/24 1509 Signed By: 01/09/24 151 Normal [facility] No Panel InformationOrdered By: Marika Fisher on 01-09-2024 Bedside Estimated GFR (eGFR) > 60.0 [facility] Whole blood creatinine measu rementOrdered By: Marika Fisher on 01-09-2024 Creatinine [Mass/Vol] 0.9 mg/dL Normal 0.6-1.3 [facility] Comment on above: ER/ESD physician is notified/shown all ISTAT results.Critical values may be confirmed by laboratory testing ifdeemed necessary by ER attending doctor. Result Comment: ER/E [place] physician is notified/shown all ISTAT results. Critical values may be confirmed by laboratory testing if deemed necessary by ER attending doctor. Performed By: #### C UBLD #### [facility] [address] [place] [address] [place]enson 11-30-2023 Screens [id number] Normal [facility] Screens [id number] Normal [facility] Ambulatory Visit Summaryon 0 11-29-2023 Ambulatory Visit Summary MILY GUADALUPE :1955 Visit Date:11/29/2023 Ambulatory Visit Instructions Your Diagnosis Elevated PSA BPH with urinary obstruction Urethral stricture in male Gross hematuria Other obstructive and reflux uropathy Your Care Team Attending Physician - MERRY Fisher APRN, Marika Mao Primary Care Physician - Rashida Gayle This Is Your Medications List Misc Prescription ([employer] cpap machine supplies: head gear, mask, tubing and filters) famotidine (famotidine 20 mg Tab) finasteride (finasteride 5 mg Tab) multivitamin (Multi Vitamin+) tamsulosin (Flomax 0.4 mg Cap) Procedures Performed Colonoscopy (01/13/2023), Cystoscopy (06/02/2020), TRUS - Transrectal ultrasonography (06/07/2018), Cystoscopy (01/05/2016), Transrectal biopsy of prostate using ultrasound (US) guidance (03/08/2011), Tonsillectomy. Discharge Vitals Heart Rate (Peripheral) 75 Respiratory Rate 16 Blood Pressure 117/72 Height 185 cm Height 73 in Weight 100 kg Weight 220 lb BMI 29.22 Medications What How Much When Why Instructions Unchanged famotidine (famotidine 20 mg Tab) 20 Unknown, Oral Unchanged finasteride (finasteride 5 mg Tab) 1 Tablets By Mouth Every day Unchanged Misc Prescription ([employer] cpap machine supplies: head gear, mask, tubing and filters) See instructions Herpes zoster BMI 29.0-29.9,adult Non-smoker [employer] cpap machine supplies: head gear, mask, tubing and filters Unchanged multivitamin (Multi Vitamin+) Unchanged tamsulosin (Flomax 0.4 mg Cap) 2 Capsules By Mouth Every day Allergies No Known Medication Allergies Problems Ongoing - Any problem that you are currently receiving treatment for. BPH with urinary obstruction Bronchitis Cough Elevated PSA Feeling of incomplete bladder emptying Frequency of urination Herpes zoster CAROL on CPAP Sinusitis Urethral stricture in male Urinary urgency Weak urine stream Historical - Any problem that you are no longer receiving treatment for. Defecation urgency Patient Survey You may receive a survey via text or e-mail asking about your office visit. Please share your experience with us by completing your survey. We appreciate your feedback and thank you for choosing us for your care. [facility] Patient Educationon 11-29-19 24 Patient Education Oncology Prostate Cancer Screening Prostate cancer screening is testing that is done to check for the presence of prostate cancer in men. The prostate gland is a walnut-sized gland that is located below the bladder and in front of the rectum in males. The function of the prostate is to add fluid to semen during ejaculation. Prostate cancer is one of the most common types of cancer in men. Who should have prostate cancer screening? Screening recommendations vary based on age and other risk factors, as well as between the professional organizations who make the recommendations. In general, screening is recommended if: ? You are age 50 to 70 and have an average risk for prostate cancer. You should talk with your health care provider about your need for screening and how often screening should be done. Because most prostate cancers are slow growing and will not cause , screening in this age group is generally reserved for men who have a 10- to 15-year life expectancy. ? You are younger than age 50, and you have these risk factors: ? Having a father, brother, or uncle who has been diagnosed with prostate cancer. The risk is higher if your family member's cancer occurred at an early age or if you have multiple family members with prostate cancer at an early age. ? Being a male who is Black or is of [place] or sub-Saharan descent. In general, screening is not recommended if: ? You are younger than age 40. ? You are between the ages of 40 and 49 and you have no risk factors. ? You are 70 years of age or older. At this age, the risks that screening can cause are greater than the benefits that it may provide. If you are at high risk for prostate cancer, your health care provider may recommend that you have screenings more often or that you start screening at a younger age. How is screening for prostate cancer done? The recommended prostate cancer screening test is a blood test called the prostate-specific antigen (PSA) test. PSA is a protein that is made in the prostate. As you age, your prostate naturally produces more PSA. Abnormally high PSA levels may be caused by: ? Prostate cancer. ? An enlarged prostate that is not caused by cancer (benign prostatic hyperplasia, or BPH). This condition is very common in older men. ? A prostate gland infection (prostatitis) or urinary tract infection. ? Certain medicines such as male hormones (like testosterone) or other medicines that raise testosterone levels. A rectal exam may be done as part of prostate cancer screening to help provide information about the size of your prostate gland. When a rectal exam is performed, it should be done after the PSA level is drawn to avoid any effect on the results. Depending on the PSA results, you may need more tests, such as: ? A physical exam to check the size of your prostate gland, if not done as part of screening. ? Blood and imaging tests. ? A procedure to remove tissue samples from your prostate gland for testing (biopsy). This is the only way to know for certain if you have prostate cancer. What are the benefits of prostate cancer screening? ? Screening can help to identify cancer at an early stage, before symptoms start and when the cancer can be treated more easily. ? There is a small chance that screening may lower your risk of dying from prostate cancer. The chance is small because prostate cancer is a slow-growing cancer, and most men with prostate cancer from a different cause. What are the risks of prostate cancer screening? The main risk of prostate cancer screening is diagnosing and treating prostate cancer that would never have caused any symptoms or problems. This is called overdiagnosisand overtreatment. PSA screening cannot tell you if your PSA is high due to cancer or a different cause. A prostate biopsy is the only procedure to diagnose prostate cancer. Even the results of a biopsy may not tell you if your cancer needs to be treated. Slow-growing prostate cancer may not need any treatment other than monitoring, so diagnosing and treating it may cause unnecessary stress or other side effects. Questions to ask your health care provider ? When should I start prostate cancer screening? ? What is my risk for prostate cancer? ? How often do I need screening? ? What type of screening tests do I need? ? How do I get my test results? ? What do my results mean? ? Do I need treatment? Where to find more information ? The [place] [employer]: www.cancer.org ? [place] [employer]: www.auanet.org Contact a health care provider if: ? You have difficulty urinating. ? You have pain when you urinate or ejaculate. ? You have blood in your urine or semen. ? You have pain in your back or in the area of your prostate. Summary ? Prostate cancer is a common type of cancer in men. The prostate gland is located below the bladder and in front of the rectum. This gland adds flu (more content not included)... Normal [facility] Urology Office/Clinic Noteon 11-29-2023 Urology Office/Clinic Note Chief Complaint 1yr PSA HPI Staff KML pt 1yr DX: BPH, Elevated PSA, Gross Hematuria & Urethral Stricture *Flomax 0.4mg 2 tabs at once rather than BID & Finasteride 5mg qd therapy. PSA 11/19/23- 3.23 States since KML doubled Flomax, urinating has been the best it has been in years. Denies pain/burning and visible blood in urine. Occasional frequency, 1-2hrs during the day. Maybe 1x/night. Occasional smaller/lower pressure stream. Not worrisome. History of Present Illness I have reviewed and verified the staff HPI to be accurate for this encounter. Portions of this record may have been created with voice recognition artificial intelligence software, specifically Six3, [employer] and or [employer]. Substitutions may have occurred due to the inherent limitations of voice recognition and artificial intelligence software. Review of Systems PHQ Score Initial Depression Screen Score: 0 SCORE Physical Exam Vitals & Measurements HR: 75(Peripheral) RR: 16 BP: 117/72 HT: 73 in HT: 185 cm WT: 100 kg WT: 220 lb BMI: 29.22 General: Well developed, well nourished, in no acute distress. Genitourinary: Flank Pain: none. Bladder: nonpalpable Prostate: normal prostate, no hard nodule observed. Assessment/Plan 1. Elevated PSA (R97.20: Elevated prostate specific antigen [PSA]) PSA: 12/15/18- 10.8 03/15/19- 9.1 11% 05/10/20-3.2 14.7% 05/26/2021 - 2.8(5.6) 11/27/2021 - 2.37(4.74) 10/02/2022 - 2.51(5.02) [1] 11/19/2023 - 3.23 (6.46) Negative BX in 2017 and 2010 Prostate size 70gms (from Op note 06/2018) [2] Great grandparents w/ prostate CA, youngest brother had prostatectomy d/t prostate CA. Today I reviewed the patients past history including voiding symptoms, PSA history and any prior prostate biopsy information that is available. We discussed the controversies that exist in the field of PSA based cancer testing and the absence of exact correlation of PSA data to the presence or absence of prostate cancer on biopsy. I discussed the production of PSA by the prostate gland as well as common causes of elevated serum PSA including infection, inflammation, BPH and prostate cancer. He understood that his PSA level may also be falsely elevated due to any manipulation/instrumentati on around the time of a PSA draw. I discussed the absolute value of PSA as well as PSA velocity and age specific PSA and the implications with the patient. I gave the patient management options moving forward and explained the risks/benefits of each one: -Continue monitoring PSA with repeat in 6 months -Obtain additional biomarkers such as select MDX -Obtain prostate MRI to evaluate for suspicious lesions. He understands MRIs may miss malignancy in 12-16% of patients. Patient elected to proceed with MRI. Order faxed to [facility]. Patient instructed that violence will take care of precertification process through insurance and will call him to schedule. -Obtain MRI of prostate. If suspicious lesion is identified, will move forward with prostate biopsy. If negative, will recheck PSA in 6 months. Ordered: MRI Pelvis (Soft Tissue) w/ + w/o contrast Urnls Dip Stick Auto w/o Microscopy POC 19360 2. BPH with urinary obstruction (N40.1: Benign prostatic hyperplasia with lower urinary tract symptoms) IPSS 13, moderate symptoms of BPH. Patient states that he is overall satisfied with his urinary symptoms at this time. Most bothersome symptom is frequency, sometimes urgency. Currently taking tamsulosin 0.4 mg BID and finasteride 5 mg QD. Tolerating well w/o SEs. Continue current doses, call for refills. Prior cysto by 2019 -moderate bilobar hypertrophy, 1+ trabeculation. Volume 70 g on TRUS [3] Today, we briefly discussed prostate procedures to optimize urination including TURP, Rezum, UroLift. Patient states he has been given literature in the past regarding these. He does not feel he is ready for these types of procedures at this time. He does note that if his urinary symptoms worsen, he would be willing to undergo these. 3. Urethral stricture in male (N35.012: Post-traumatic membranous urethral stricture) s/p cysto/UD Jun 2020 dilated to 24 frisian. [4] Denies any significant change in stream indicating need for dilation. 4. Gross hematuria (R31.0: Gross hematuria) pt reported blood in his undergarments in Apr 2020. Neg workup at that time w/ CT, FISH/cytol, CT, cysto. UA today without signs of bladder infection. Patient denies episode of hematuria or urinary infection since prior office visit. 5. Erectile dysfunction (N52.9: Male erectile dysfunction, unspecified) CLAY 15, mild to moderate symptoms of ED Patient states that this is not bothersome to him at this time. Patient to contact office if he is looking for treatment options. Follow-up With When Contact Information Octavio EATON, Kassidy Merchant, URL, URO Additional Instructions: pending MRI prostate Patient Education Prostate Canc (more content not included)... [facility] Comment on above: Result Comment: Elec tronically Signed By: MERRY Fisher APRN, [place] X\.br\Date and Time Signed: 11/29/23 08:42 EDT Lab Reportson 11-21-2023 Lab Reports [id number] [facility] Ambulatory Visit Summaryon 0 10-26-2023 Ambulatory Visit Summary MILY GUADALUPE :1955 Visit Date:10/26/2023 Ambulatory Visit Instructions Your Diagnosis BMI 29.0-29.9,adult Your Care Team Attending Physician - Rashida Gayle Primary Care Physician - Rashida Gayle This Is Your Medications List [facility] Prescription ([employer] cpap machine supplies: head gear, mask, tubing and filters) famotidine (famotidine 20 mg Tab) finasteride (finasteride 5 mg Tab) multivitamin (Multi Vitamin+) tamsulosin (Flomax 0.4 mg Cap) Procedures Performed Colonoscopy (01/13/2023), Cystoscopy (06/02/2020), TRUS - Transrectal ultrasonography (06/07/2018), Cystoscopy (01/05/2016), Transrectal biopsy of prostate using ultrasound (US) guidance (03/08/2011), Tonsillectomy. Discharge Vitals Temperature (Temporal Artery) 37 ?C Heart Rate (Peripheral) 70 Blood Pressure 138/70 Height 185 cm Height 73 in Weight 100.65 kg Weight 221.43 lb BMI 29.41 What to do next Scheduled Follow-Up Appointments Tuesday 8:00 AM EDT With: Orzech SUPPLY CHAIN DESIGN MANAGER, SALVAGE SUPERVISOR-C, Marika X Where: [facility] [place] Normal [facility] Family Medicine Office/Clini c Noteon 10-26-2023 Family Medicine Office/Clinic Note Chief Complaint sinus congestion HPI Staff Mily is a 67 year old male presenting for acute visit Respiratory C/O: Onset: 1 week Body aches: no Chest congestion: yes Chills: no Cough: yes Sputum production: yes yellow Sore throat: no Ear complaints: yes pressure Eye itching/watering: yes watering Fever: no Headache: yes Nasal congestion: yes Nasal discharge: yes clear-sometimes yellow Poor appetite: no Reduced activity: no Sinus pain/pressure: yes Sneezing: yes Wheezing: yes Ill contacts: no Remedies tried: allergy medication Questions/Concerns: History of Present Illness pt presents today for URI symptoms Review of Systems PHQ Score Initial Depression Screen Score: 0 SCORE Physical Exam Vitals & Measurements T: 37 ?C(Temporal Artery) HR: 70(Peripheral) BP: 138/70 SpO2: 97% HT: 73 in HT: 185 cm WT: 100.65 kg WT: 221.43 lb BMI: 29.41 General: alert, no acute distress ENMT: oral mucosa moist, no pharyngeal erythema or exudate, LAURA TM full of fluid, sinus tenderness Cardiovascular: regular rate and rhythm, normal peripheral perfusion Respiratory: Lungs CTA, respirations non labored Extremities: no deformity, no trauma Neurological: oriented x 4, LOC appropriate for age, CN II-XII intact, motor strength equal & normal bilaterally, speech normal Assessment/Plan 1. Sinusitis (J32.9: Chronic sinusitis, unspecified) pt presents today for nasal congestion, ear pressure, sinus headache. denies fever or chills. will order antibiotic and medrol dose pack. all questions answered. RTC as needed 2. BMI 29.0-29.9,adult (Z68.29: Body mass index [BMI] 29.0-29.9, adult) BMI education complete Ordered: Body Mass Index (BMI) documented 3008F Current tobacco non-user 1036F Depression Screening Negative 3352F Medication list documented in medical record 1159F Patient screen for fall risk: no falls in last year or 1 fall with no injury in last year 1101F Orders: amoxicillin-clavulanate, 1 tab(s), Oral, q12hr for 7 day(s), 14 tab(s), Refill(s) 0, [facility] #[id number], 185, cm, 10/26/23 8:46:00 EDT, Height/Length Dosing, 100.7, kg, 10/26/23 8:38:00 EDT, Weight Dosing methylPREDNISolone, = 1 packet(s), Oral, Once, as directed on package labeling, # 21 tab(s), Refills(s) 0, Pharmacy: [facility][id number], 185, cm, 10/26/23 8:46:00 EDT, Height/Length Dosing, 100.7, kg, 10/26/23 8:38:00 EDT, Weight Dosing Follow-up No qualifying data available Problem List/Past Medical History Ongoing BPH with urinary obstruction Bronchitis Cough Elevated PSA Feeling of incomplete bladder emptying Frequency of urination Herpes zoster CAROL on CPAP Sinusitis Urethral stricture in male Urinary urgency Weak urine stream Historical Defecation urgency Procedure/Surgical History Colonoscopy (01/13/2023), Cystoscopy (06/02/2020), TRUS - Transrectal ultrasonography (06/07/2018), Cystoscopy (01/05/2016), Transrectal biopsy of prostate using ultrasound (US) guidance (03/08/2011), Tonsillectomy. Medications amoxicillin-clavulanate 875 mg-125 mg Tab, 1 tab(s), Oral, q12hr famotidine 20 mg Tab finasteride 5 mg Tab, 5 mg= 1 tab(s), Oral, Daily, 11 refills Flomax 0.4 mg Cap, 0.8 mg= 2 cap(s), Oral, Daily, 11 refills methylPREDNISolone 4 mg tab dosepak, 1 packet(s), Oral, Once Multi Vitamin+ [employer] [place] cpap machine supplies: head gear, mask, tubing and filters, See Instructions, 1 refills Allergies No Known Medication Allergies Social History Tobacco - Denies Tobacco Use, 06/02/2020 Never (less than 100 in lifetime) Tobacco Use:. Never Smokeless Tobacco Use:. Household tobacco concerns: No., 10/26/2023 Family History Prostate cancer: Grandparent. Throat cancer: Father. Immunizations Vaccine Date Status influenza virus vaccine, inactivated 05/14/2022 Recorded SARS-CoV-2 (COVID-19) mRNAMUL.ORD![id number] 05/14/2022 Recorded SARSCoV2 mRNA(severo ) vac 12/07/2021 Recorded SARS-CoV-2 (COVID-19) mRNA BNT-162b2 vax 05/10/2021 Recorded SARS-CoV-2 (COVID-19) Ad26 vaccine 10/18/2020 Recorded SARS-CoV-2 (COVID-19) mRNA BNT-162b2 vax 09/27/2020 Recorded SARS-CoV-2 (COVID-19) Ad26 vaccine 09/02/2020 Recorded pneumococcal 13-valent vaccine 06/05/2020 Recorded influenza virus vaccine, inactivated 06/05/2020 Recorded Normal [facility] Comment on above: Result Comment: Elec tronically Signed By: Rashida Gayle\.br\Date and Time Signed: 10/26/23 09:05 EDT Family Medicine Office/Clini c Noteon 08-12-2023 Family Medicine Office/Clinic Note Chief Complaint cold symptoms HPI Staff Patient of Lidia Cabezas NP presents with a productive cough. complaints of productive cough. Onset: one month ago Characteristics: clear sometimes yellow. feels that ears are plugged and drainage going down throat. OTC tried: has been on 2 ATB Covid test: negative I have reviewed and verified the staff HPI to be accurate for this encounter. History of Present Illness 67 year old male patient presents today for evaluation of cough x 2 days. Patient states he tested for COVID on 08/09/2023 and it was negative. He reports he has been sick since the beginning of July 2023. He states he took two rounds of ATB and a medrol dose pack. He states he thought he was getting better then he reports he started coughing up copious amounts of mucus. He has not tried any OTC medication just what was prescribed by his pcp. He feels he is starting with the sinus infection all over again. Review of Systems Constitutional: no fever, no chills, no sweats, no weakness Skin: no Jaundice, no rash, no lesions, nopetechiae ENMT: mild left ear pain, no sore throat, no congestion, no hoarseness Respiratory: no shortness of breath, mild cough, no orthopnea, no wheezing Cardiovascular: no chest pain, no palpitations, no edema Gastrointestinal: no nausea, no vomiting, no diarrhea, no GI bleeding Genitourinary: no dysuria, no hematuria, no discharge, no pain Musculoskeletal: no back pain, no trauma Neurologic: no headache, no dizziness, no numbness, no weakness Psychiatric: no sleeping problems, no irritability, no mood swings/depression. Additional ROS info: Except as noted in the above Review of Systems and in the History of Present Illness all other systems have been reviewed and are negative or noncontributory. Physical Exam Vitals & Measurements HR: 73(Peripheral) BP: 110/70 SpO2: 97% HT: 73 in HT: 185 cm WT: 99.6 kg WT: 219.12 lb BMI: 29.1 General: alert, no acute distress ENMT: TM's not clear injected on the left, excess cerumen on the right covering the TM, oral mucosa moist, yes mild pharyngeal erythema Cardiovascular: regular rate and rhythm, normal peripheral perfusion Respiratory: Lungs CTA, respirations non labored Extremities: no deformity, no trauma Neurological: oriented x 4, LOC appropriate for age speech normal Assessment/Plan 1. Cough (R05.9: Cough, unspecified) Discussed with patient the duration of cough after a sinus infection can be 6-8 weeks Encouraged to use throat lozenges and war salt water gargles Discussed viral infection vs bacterial infection f/u with pcp Ordered: benzonatate, 100 mg = 1 cap(s), Oral, TID, X 7 day(s), # 21 cap(s), Refills(s) 0, Pharmacy: [facility] #[id number], 185, cm, 07/20/23 17:39:00 EST, Height/Length Dosing, 98.6, kg, 07/20/23 17:39:00 EST, Weight Dosing doxycycline, 100 mg = 1 cap(s), Oral, q12hr, Take one capsule by mouth every twelve hours for ten days, X 7 day(s), # 14 cap(s), Refills(s) 0, Pharmacy: [facility] #[id number], 185, cm, 07/20/23 17:39:00 EST, Height/Length Dosing, 98.6, kg, 07/20/23 17:39:00 EST, Weight... Body Mass Index (BMI) documented 3008F Depression Screening Negative 3352F Patient screen for fall risk: no falls in last year or 1 fall with no injury in last year 1101F 3. BMI 29.0-29.9,adult (Z68.29: Body mass index [BMI] 29.0-29.9, adult) Monitor weight at each visit Encourage daily exercise & portion control Ordered: Body Mass Index (BMI) documented 3008F Depression Screening Negative 3352F Patient screen for fall risk: no falls in last year or 1 fall with no injury in last year 1101F Nasal congestion (R09.81: Nasal congestion) Negartive COVID test today in the office Ordered: Rapid COVID POC 17465 Follow-up No qualifying data available Patient Education Cough, Adult, [id number]-[id number] Problem List/Past Medical History Ongoing BPH with urinary obstruction Bronchitis Cough Elevated PSA Feeling of incomplete bladder emptying Frequency of urination Herpes zoster CAROL on CPAP Sinusitis Urethral stricture in male Urinary urgency Weak urine stream Historical Defecation urgency Procedure/Surgical History Colonoscopy (01/13/2023), Cystoscopy (06/02/2020), TRUS - Transrectal ultrasonography (06/07/2018), Cystoscopy (01/05/2016), Transrectal biopsy of prostate using ultrasound (US) guidance (03/08/2011), Tonsillectomy. Medications doxycycline hyclate 100 mg Cap, 100 mg= 1 cap(s), Oral, q12hr famotidine 20 mg Tab finasteride 5 mg Tab, 5 mg= 1 tab(s), Oral, Daily, 11 refills Flomax 0.4 mg Cap, 0.8 mg= 2 cap(s), Oral, Daily, 11 refills Multi Vitamin+ omeprazole [employer] cpap machine supplies: head gear, mask, tubing and filters, See Instructions, 1 refills Tessalon 100 mg Cap, 100 mg= 1 cap(s), Oral, TID Allergies No Known Medication Allergies Social History Tobacco - Denies Tobacco Use, 06/02/2020 Never (less than 100 in lifetime) Tobacco Use:. Never Smokeless Tobacco (more content not included)... Normal [facility] Comment on above: Result Comment: Elec tronically Signed By: ADRIANA BEY CNP\rose\Date and Time Signed: 08/12/23 08:10 EST Patient Educationon 08-12-19 Patient Education ENT Cough, Adult A cough helps to clear your throat and lungs. A cough may be a sign of an illness or another medical condition. An acute cough may only last 2?3 weeks, while a chronic cough may last 8 or more weeks. Many things can cause a cough. They include: ? Germs (viruses or bacteria) that attack the airway. ? Breathing in things that bother (irritate) your lungs. ? Allergies. ? Asthma. ? Mucus that runs down the back of your throat (postnasal drip). ? Smoking. ? Acid backing up from the stomach into the tube that moves food from the mouth to the stomach (gastroesophageal reflux). ? Some medicines. ? Lung problems. ? Other medical conditions, such as heart failure or a blood clot in the lung (pulmonary embolism). Follow these instructions at home: Medicines ? Take ubyh-tzs-djobnlk and prescription medicines only as told by your doctor. ? Talk with your doctor before you take medicines that stop a cough (cough suppressants). Lifestyle ? Do not smoke, and try not to be around smoke. Do not use any products that contain nicotine or tobacco, such as cigarettes, e-cigarettes, and chewing tobacco. If you need help quitting, ask your doctor. ? Drink enough fluid to keep your pee (urine) pale yellow. ? Avoid caffeine. ? Do not drink alcohol if your doctor tells you not to drink. General instructions ? Watch for any changes in your cough. Tell your doctor about them. ? Always cover your mouth when you cough. ? Stay away from things that make you cough, such as perfume, candles, campfire smoke, or cleaning products. ? If the air is dry, use a cool mist vaporizer or humidifier in your home. ? If your cough is worse at night, try using extra pillows to raise your head up higher while you sleep. ? Rest as needed. ? Keep all follow-up visits as told by your doctor. This is important. Contact a doctor if: ? You have new symptoms. ? You cough up pus. ? Your cough does not get better after 2?3 weeks, or your cough gets worse. ? Cough medicine does not help your cough and you are not sleeping well. ? You have pain that gets worse or pain that is not helped with medicine. ? You have a fever. ? You are losing weight and you do not know why. ? You have night sweats. Get help right away if: ? You cough up blood. ? You have trouble breathing. ? Your heartbeat is very fast. These symptoms may be an emergency. Do not wait to see if the symptoms will go away. Get medical help right away. Call your local emergency services (911 in the [place] Do not drive yourself to the hospital. Summary ? A cough helps to clear your throat and lungs. Many things can cause a cough. ? Take uplt-bgb-xyiafil and prescription medicines only as told by your doctor. ? Always cover your mouth when you cough. ? Contact a doctor if you have new symptoms or you have a cough that does not get better or gets worse. This information is not intended to replace advice given to you by your health care provider. Make sure you discuss any questions you have with your health care provider. Document Revised: 09/05/2020 Document Reviewed: 08/06/2019 [email or web address] Patient Education ? 2022 [employer]. [facility] Ambulatory Visit Summaryon 0 08-11-2023 Ambulatory Visit Summary MILY GUADALUPE :1955 Visit Date:08/11/2023 Ambulatory Visit Instructions Your Diagnosis Cough URI due to influenza Nasal congestion Your Care Team Attending Physician - ADRIANA BEY CNP Primary Care Physician - Rashida Gayle This Is Your Medications List [facility] Prescription ([employer] cpap machine supplies: head gear, mask, tubing and filters) benzonatate (Tessalon 100 mg Cap) doxycycline (doxycycline hyclate 100 mg Cap) famotidine (famotidine 20 mg Tab) finasteride (finasteride 5 mg Tab) multivitamin (Multi Vitamin+) omeprazole tamsulosin (Flomax 0.4 mg Cap) Procedures Performed Colonoscopy (01/13/2023), Cystoscopy (06/02/2020), TRUS - Transrectal ultrasonography (06/07/2018), Cystoscopy (01/05/2016), Transrectal biopsy of prostate using ultrasound (US) guidance (03/08/2011), Tonsillectomy. Discharge Vitals Heart Rate (Peripheral) 73 Blood Pressure 110/70 Weight 99.6 kg Weight 219.12 lb What to do next Scheduled Follow-Up Appointments Tuesday. 2023 8:00 AM EDT With: Octavio EATON, Kassidy Merchant Where: [facility] Family Medicine Office/Clini c Noteon 07-21-2023 Family Medicine Office/Clinic Note HPI Staff Mily is a 67 year old male presenting for acute visit XIOMARA 07/01/23 Bronchitis/Sinusitis strted Augmentin, tessaolon pearls, methylprednisolone Respiratory C/O: Onset: 3 weeks Body aches: no Chest congestion: yes feels heavy in the morning Chills: no Cough: yes Sputum production: yes green/yellow Sore throat: no Ear complaints: yes left year feels full Eye itching/watering: no Fever: no Headache: no Nasal congestion: yes Nasal discharge: yes Poor appetite: no Reduced activity: no Sinus pain/pressure: no Sneezing: yes Wheezing: yes Ill contacts: no Remedies tried: Mucinex only for 2 weeks pharmacist told him only take for 2 weeks Questions/Concerns: pt feels like he is getting over it has continues productive cough 1 weeks rash on nose little white pimples has been cleaning with Alcohol and peroxide and NAILA. States it has got better. there is still red spots History of Present Illness pt presents today with continued issues with URI symptoms Review of Systems PHQ Score Initial Depression Screen Score: 0 SCORE ROS - Provider Constitutional: no fever, no chills, no sweats, no fatigue Respiratory: no shortness of breath, no cough, no orthopnea, no wheezing. cough nasal congestion Cardiovascular: no chest pain, no palpitations, no edema. Neurologic: no headache, no dizziness, no numbness, no weakness. Physical Exam Vitals & Measurements T: 36.6 ?C(Tympanic) HR: 76(Peripheral) RR: 18 BP: 116/80 SpO2: 97% HT: 73 in HT: 185 cm WT: 98.6 kg WT: 216.92 lb BMI: 28.81 General: alert, no acute distress ENMT: oral mucosa moist, no pharyngeal erythema or exudate Cardiovascular: regular rate and rhythm, normal peripheral perfusion Respiratory: Lungs CTA, respirations non labored Extremities: no deformity, no trauma Neurological: oriented x 4, LOC appropriate for age, CN II-XII intact, motor strength equal & normal bilaterally, speech normal Assessment/Plan 1. Sinusitis (J32.9: Chronic sinusitis, unspecified) in talking with patient he informed provider that he never got the Augmentin I sent in for him. Not sure why but it did get sent in. will send augmentin as well as medrol dose pack. 2. Cough (R05.9: Cough, unspecified) continues with cough 3. Non-smoker (Z78.9: Other specified health status) continue not smoking Ordered: mupirocin topical, 1 dylan, Topical, TID, 15 gram, Refill(s) 0, [facility] #[id number], 185, cm, 07/20/23 17:39:00 EST, Height/Length Dosing, 98.6, kg, 07/20/23 17:39:00 EST, Weight Dosing 4. BMI 28.0-28.9,adult (Z68.28: Body mass index [BMI] 28.0-28.9, adult) bmi eductaion complete Ordered: mupirocin topical, 1 dylan, Topical, TID, 15 gram, Refill(s) 0, [facility] #[id number], 185, cm, 07/20/23 17:39:00 EST, Height/Length Dosing, 98.6, kg, 07/20/23 17:39:00 EST, Weight Dosing Orders: amoxicillin-clavulanate, 1 tab(s), Oral, q12hr for 7 day(s), 14 tab(s), Refill(s) 0, [facility] #[id number], 185, cm, 07/20/23 17:39:00 EST, Height/Length Dosing, 98.6, kg, 07/20/23 17:39:00 EST, Weight Dosing methylPREDNISolone, = 1 packet(s), Oral, Once, as directed on package labeling, # 21 tab(s), Refills(s) 0, Pharmacy: [facility] #[id number], 185, cm, 07/20/23 17:39:00 EST, Height/Length Dosing, 98.6, kg, 07/20/23 17:39:00 EST, Weight Dosing Follow-up No qualifying data available Problem List/Past Medical History Ongoing BPH with urinary obstruction Bronchitis Cough Elevated PSA Feeling of incomplete bladder emptying Frequency of urination Herpes zoster CAROL on CPAP Sinusitis Urethral stricture in male Urinary urgency Weak urine stream Historical Defecation urgency Procedure/Surgical History Colonoscopy (01/13/2023), Cystoscopy (06/02/2020), TRUS - Transrectal ultrasonography (06/07/2018), Cystoscopy (01/05/2016), Transrectal biopsy of prostate using ultrasound (US) guidance (03/08/2011), Tonsillectomy. Medications amoxicillin-clavulanate 875 mg-125 mg Tab, 1 tab(s), Oral, q12hr famotidine 20 mg Tab finasteride 5 mg Tab, 5 mg= 1 tab(s), Oral, Daily, 11 refills Flomax 0.4 mg Cap, 0.8 mg= 2 cap(s), Oral, Daily, 11 refills methylPREDNISolone 4 mg tab dosepak, 1 packet(s), Oral, Once Multi Vitamin+ mupirocin Top 2% Oint, 1 dylan, Topical, TID omeprazole [employer] cpap machine supplies: head gear, mask, tubing and filters, See Instructions, 1 refills Allergies No Known Medication Allergies Social History Tobacco - Denies Tobacco Use, 06/02/2020 Never (less than 100 in lifetime) Tobacco Use:. Never Smokeless Tobacco Use:. Household tobacco concerns: No., 07/20/2023 Family History Prostate cancer: Grandparent. Throat cancer: Father. Immunizations Vaccine Date Status influenza virus vaccine, inactivated 05/14/2022 Recorded SARS-CoV-2 (COVID-19) mRNAMUL.ORD![id number] 05/14/2022 Recorded SARSCoV2 mRNA(ydyffcdsn-ypkn-wojzsh ) vac 12/07/2021 Recorded SARS-CoV-2 (COVID-19) mRNA BNT-162b2 vax 05/10/2021 Recorded SARS-CoV-2 (COVID-19) Ad26 vacc (more content not included)... Normal [facility] Comment on above: Result Comment: Elec tronically Signed By: Rashida Gayle\.br\Date and Time Signed: 07/21/23 15:18 EST Ambulatory Visit Summaryon 1 09-20-2022 Ambulatory Visit Summary MILY GUADALUPE :1955 Visit Date:07/20/2023 Ambulatory Visit Instructions Your Diagnosis BMI 28.0-28.9,adult Non-smoker Your Care Team Attending Physician - Rashida Gayle Primary Care Physician - Rashida Gayle This Is Your Medications List Misc Prescription ([employer] cpap machine supplies: head gear, mask, tubing and filters) amoxicillin-clavulanate (amoxicillin-clavulanate 875 mg-125 mg Tab) famotidine (famotidine 20 mg Tab) finasteride (finasteride 5 mg Tab) methylPREDNISolone (methylPREDNISolone 4 mg tab dosepak) multivitamin (Multi Vitamin+) mupirocin topical (mupirocin Top 2% Oint) omeprazole tamsulosin (Flomax 0.4 mg Cap) Procedures Performed Colonoscopy (01/13/2023), Cystoscopy (06/02/2020), TRUS - Transrectal ultrasonography (06/07/2018), Cystoscopy (01/05/2016), Transrectal biopsy of prostate using ultrasound (US) guidance (03/08/2011), Tonsillectomy. Discharge Vitals Temperature (Tympanic) 36.6 ?C Heart Rate (Peripheral) 76 Respiratory Rate 18 Blood Pressure 116/80 Height 185 cm Height 73 in Weight 98.6 kg Weight 216.92 lb BMI 28.81 What to do next Scheduled Follow-Up Appointments Tuesday. 2023 8:00 AM EDT With: Octavio EATON, Kassidy Merchant Where: [facility] Ambulatory Visit Summaryon 09-01-2022 Ambulatory Visit Summary MILY GUADALUPE :1955 Visit Date:07/01/2023 Ambulatory Visit Instructions Your Diagnosis Sinusitis Bronchitis BMI 29.0-29.9,adult Non-smoker Your Care Team Attending Physician - Rashida Gayle Primary Care Physician - Rashida Gayle This Is Your Medications List Misc Prescription ([employer] cpap machine supplies: head gear, mask, tubing and filters) amoxicillin-clavulanate (Augmentin 875 mg oral tablet) benzonatate (benzonatate 200 mg oral capsule) famotidine (famotidine 20 mg Tab) finasteride (finasteride 5 mg Tab) methylPREDNISolone (Medrol 4 mg Tab) multivitamin (Multi Vitamin+) omeprazole tamsulosin (Flomax 0.4 mg Cap) Procedures Performed Colonoscopy (01/13/2023), Cystoscopy (06/02/2020), TRUS - Transrectal ultrasonography (06/07/2018), Cystoscopy (01/05/2016), Transrectal biopsy of prostate using ultrasound (US) guidance (03/08/2011), Tonsillectomy. Discharge Vitals Temperature (Tympanic) 36.9 ?C Heart Rate (Peripheral) 80 Respiratory Rate 18 Blood Pressure 124/86 Weight 101.0 kg Weight 222.2 lb What to do next Scheduled Follow-Up Appointments Tuesday. 2023 8:00 AM EDT With: Octavio EATON, Kassidy Merchant Where: [facility] Family Medicine Office/Clini c Noteon 07-01-2023 Family Medicine Office/Clinic Note HPI Staff Mily is a 67 year old male presenting for acute sick visit Respiratory C/O: Onset: 3 days ago Body aches: yes Chest congestion: yes Chills: yes Cough: yes Sputum production: yes yellow Sore throat: yes Ear complaints: yes bilateral feel full Eye itching/watering: yes Fever: no Headache: no Nasal congestion: yes Nasal discharge: yes Poor appetite: no Reduced activity: no Sinus pain/pressure: yes Sneezing: yes Wheezing: yes Ill contacts: no Remedies tried: halls cough drops, Advil Questions/Concerns: History of Present Illness pt presents today with upper respiratory symptoms Review of Systems PHQ Score Initial Depression Screen Score: 0 SCORE ROS - Provider Constitutional: no fever, no chills, no sweats, no fatigue Respiratory: no shortness of breath, no cough, no orthopnea, no wheezing. Cardiovascular: no chest pain, no palpitations, no edema. Neurologic: no headache, no dizziness, no numbness, no weakness. Physical Exam Vitals & Measurements T: 36.9 ?C(Tympanic) HR: 80(Peripheral) RR: 18 BP: 124/86 SpO2: 95% WT: 101.0 kg WT: 222.2 lb General: alert, no acute distress ENMT: oral mucosa moist, no pharyngeal erythema or exudate Cardiovascular: regular rate and rhythm, normal peripheral perfusion Respiratory: Lungs CTA, respirations non labored Extremities: no deformity, no trauma Neurological: oriented x 4, LOC appropriate for age, CN II-XII intact, motor strength equal & normal bilaterally, speech normal Assessment/Plan 1. Sinusitis (J32.9: Chronic sinusitis, unspecified) pt presents today with sinus congestion and tenderness. ear pressure and severe cough. will treat with augmentin. covid and influenza are negative in office today. all questions answered. RTC as needed Ordered: amoxicillin-clavulanate, = 1 tab(s), Oral, q12hr, X 7 day(s), # 14 tab(s), Refills(s) 0, Pharmacy: [facility] #[id number], 185, cm, 02/09/23 16:48:00 EDT, Height/Length Dosing, 101, kg, 07/01/23 15:03:00 EST, Weight Dosing benzonatate, 200 mg = 1 cap(s), Oral, TID, X 7 day(s), # 21 cap(s), Refills(s) 0, Pharmacy: [facility] #[id number], 185, cm, 02/09/23 16:48:00 EDT, Height/Length Dosing, 101, kg, 07/01/23 15:03:00 EST, Weight Dosing methylPREDNISolone, = 1 packet(s), Oral, As Directed, as directed on package labeling, X 6 day(s), # 21 tab(s), Refills(s) 0, Pharmacy: [facility] #[id number], 185, cm, 02/09/23 16:48:00 EDT, Height/Length Dosing, 101, kg, 07/01/23 15:03:00 EST, Weight Dosing 2. Bronchitis (J40: Bronchitis, not specified as acute or chronic) medrol dose pack and tessalon pearls sent to pharmacy Ordered: amoxicillin-clavulanate, = 1 tab(s), Oral, q12hr, X 7 day(s), # 14 tab(s), Refills(s) 0, Pharmacy: [facility] #[id number], 185, cm, 02/09/23 16:48:00 EDT, Height/Length Dosing, 101, kg, 07/01/23 15:03:00 EST, Weight Dosing benzonatate, 200 mg = 1 cap(s), Oral, TID, X 7 day(s), # 21 cap(s), Refills(s) 0, Pharmacy: [facility] #[id number], 185, cm, 02/09/23 16:48:00 EDT, Height/Length Dosing, 101, kg, 07/01/23 15:03:00 EST, Weight Dosing methylPREDNISolone, = 1 packet(s), Oral, As Directed, as directed on package labeling, X 6 day(s), # 21 tab(s), Refills(s) 0, [facility]acy: [id number], 185, cm, 02/09/23 16:48:00 EDT, Height/Length Dosing, 101, kg, 07/01/23 15:03:00 EST, Weight Dosing 3. BMI 29.0-29.9,adult (Z68.29: Body mass index [BMI] 29.0-29.9, adult) bmi education complete Ordered: amoxicillin-clavulanate, = 1 tab(s), Oral, q12hr, X 7 day(s), # 14 tab(s), Refills(s) 0, Pharmacy: [facility] #[id number], 185, cm, 02/09/23 16:48:00 EDT, Height/Length Dosing, 101, kg, 07/01/23 15:03:00 EST, Weight Dosing benzonatate, 200 mg = 1 cap(s), Oral, TID, X 7 day(s), # 21 cap(s), Refills(s) 0, Pharmacy: [facility] #[id number], 185, cm, 02/09/23 16:48:00 EDT, Height/Length Dosing, 101, kg, 07/01/23 15:03:00 EST, Weight Dosing methylPREDNISolone, = 1 packet(s), Oral, As Directed, as directed on package labeling, X 6 day(s), # 21 tab(s), Refills(s) 0, Pharmacy: [facility] #[id number], 185, cm, 02/09/23 16:48:00 EDT, Height/Length Dosing, 101, kg, 07/01/23 15:03:00 EST, Weight Dosing 4. Non-smoker (Z78.9: Other specified health status) continue not smoking Ordered: amoxicillin-clavulanate, = 1 tab(s), Oral, q12hr, X 7 day(s), # 14 tab(s), Refills(s) 0, Pharmacy: [facility] #[id number], 185, cm, 02/09/23 16:48:00 EDT, Height/Length Dosing, 101, kg, 07/01/23 15:03:00 EST, Weight Dosing benzonatate, 200 mg = 1 cap(s), Oral, TID, X 7 day(s), # 21 cap(s), Refills(s) 0, Pharmacy: [facility] #[id number], 185, cm, 02/09/23 16:48:00 EDT, Height/Length Dosing, 101, kg, 07/01/23 15:03:00 EST, Weight Dosing methylPREDNISolone, = 1 packet(s), Oral, As Directed, as directed on package labeling, X 6 day(s), # 21 tab(s), Refills(s) 0, Pharmacy: [facility] #[id number], 185, cm, 02/09/23 16:48:00 EDT, Height/Length Dosing, 101, kg, 07/01/23 15:03:00 EST, Weight Dosing Follow-up No qualifying data available Problem List/Past Medical History Ongoing BPH with urinary (more content not included)... Normal [facility] Comment on above: Result Comment: Elec tronically Signed By: Rashida Gayle\.br\Date and Time Signed: 07/01/23 15:15 EST CBC AUTO DIFFon 08-13-2022 BASO # 0.0 103/ul Normal 0.0-0.1 [facility] Comment on above: Performed By: #### C BC #### [facility] [address] [address] [address] Dorothy Kaur Basophils/100 WBC (Bld) 0.4 % Normal 0.2-2.0 [facility] Comment on above: Performed By: #### C BC #### [facility] [address] [address] [address] Dorothy Kaur EO # 0.0 103/ul Normal 0.0-0.7 [facility] Comment on above: Performed By: #### C BC #### [facility] [address] [place] [address] Dr. Dorothy Kaur Eosinophils/100 WBC (Bld) 0.1 % Critically low 0.9-7.0 [facility] Comment on above: Performed By: #### C BC #### [facility] [address] [place] [address] Dr. Dorothy Kaur Erythrocyte distribution width (RBC) [Ratio] 13.2 % Normal 11.0-15.0 [facility] Comment on above: Performed By: #### C BC #### [facility] [address] [place] [address] Dr. Dorothy Kaur Hematocrit (Bld) [Volume fraction] 48.8 % Normal 42.0-54.0 [facility] Comment on above: Performed By: #### C BC #### [facility] [address] [place] [address] Dr. Dorothy Kaur Hemoglobin (Bld) [Mass/Vol] 15.4 g/dL Normal 14.0-18.0 [facility] Comment on above: Performed By: #### C BC #### [facility] [address] [place] [address] Dr. Dorothy Kaur IG # 0.05 10e3/ul Critically high 0.00-0.03 [facility] Comment on above: Performed By: #### C BC #### [facility] [address] [place] [address] Dr. Dorothy Kaur IG % 0.6 % Critically high 0.0-0.5 [facility] Comment on above: Performed By: #### C BC #### [facility] [address] [place] [address] Dr. Dorothy Kaur LYMPH # 2.0 103/ul Normal 1.2-3.8 [facility] Comment on above: Performed By: #### C BC #### [facility] [address] [place] [address] Dr. Dorothy Kaur Lymphocytes/100 WBC (Bld) 22.5 % Normal 20.5-60.0 [facility] Comment on above: Performed By: #### C BC #### [facility] [address] [place] [address] Dr. Dorothy Kaur MANUAL DIFF REQ NO Normal [facility] Comment on above: Performed By: #### C BC #### [facility] [address] [place] [address] Dr. Dorothy Kaur MCH (RBC) [Entitic mass] 30.3 pg Normal 25.9-34.0 [facility] Comment on above: Performed By: #### C BC #### [facility] [address] [place] [address] Dr. Dorothy Kaur MCHC (RBC) [Mass/Vol] 31.6 g/dL Normal 29.9-35.2 [facility] Comment on above: Performed By: #### C BC #### [facility] [address] [place] [address] Dr. Dorothy Kaur MCV (RBC) [Entitic vol] 95.9 fL Critically high 80.0-94.0 [facility] Comment on above: Performed By: #### C BC #### [facility] [address] [place] [address] Dr. Dorothy Kaur MONO # 0.9 103/ul Critically high 0.3-0.8 [facility] Comment on above: Performed By: #### C BC #### [facility] [address] [place] [address] Dr. Dorothy Kaur Monocytes/100 WBC (Bld) 9.9 % Normal 1.7-12.0 [facility] Comment on above: Performed By: #### C BC #### [facility] [address] [place] [address] Dr. Dorothy Kaur NEUT # 6.0 103/ul Normal 1.4-6.5 [facility] Comment on above: Performed By: #### C BC #### [facility] [address] [place] [address] Dr. Dorothy Kaur Neutrophils/100 WBC (Bld) 66.5 % Normal 43.0-75.0 [facility] Comment on above: Performed By: #### C BC #### [facility] [address] [place] [address] Dr. Dorothy Kaur Platelet mean volume (Bld) [Entitic vol] 9.4 fL Critically low 9.5-13.5 [facility] Comment on above: Performed By: #### C BC #### [facility] [address] [place] [address] Dr. Dorothy Kaur PLT 148 103/ul Critically low 150-450 [facility] Comment on above: Performed By: #### C BC #### [facility] [address] [place] [address] Dr. Dorothy Kaur RBC 5.09 106/ul Normal 4.70-6.10 [facility] Comment on above: Performed By: #### C BC #### [facility] [address] [place] [address] Dr. Dorothy Kaur WBC 9.0 103/ul Normal 4.0-11.0 [facility] Comment on above: Performed By: #### C BC #### [facility] [address] [place] [address] Dr. Dorothy Kaur CBC AUTO DIFFon 02-16-2022 BASO # 0.0 103/ul Normal 0.0-0.1 [facility] Comment on above: Performed By: #### C BC #### [facility] [address] [place] [address] Dr. Dorothy Kaur Basophils/100 WBC (Bld) 0.5 % Normal 0.2-2.0 [facility] Comment on above: Performed By: #### C BC #### [facility] [address] [place] [address] Dr. Dorothy Karu EO # 0.0 103/ul Normal 0.0-0.7 [facility] Comment on above: Performed By: #### C BC #### [facility] [address] [place] [address] Dr. Dorothy Kaur Eosinophils/100 WBC (Bld) 0.0 % Critically low 0.9-7.0 [facility] Comment on above: Performed By: #### C BC #### [facility] [address] [place] [address] Dr. Dorothy Kaur Erythrocyte distribution width (RBC) [Ratio] 13.2 % Normal 11.0-15.0 [facility] Comment on above: Performed By: #### C BC #### [facility] [address] [place] [address] Dr. Dorothy Kaur Hematocrit (Bld) [Volume fraction] 44.2 % Normal 42.0-54.0 [facility] Comment on above: Performed By: #### C BC #### [facility] [address] [place] [address] Dr. Dorothy Kaur Hemoglobin (Bld) [Mass/Vol] 15.1 g/dL Normal 14.0-18.0 [facility] Comment on above: Performed By: #### C BC #### [facility] [address] [place] [address] Dr. Dorothy Kaur IG # 0.05 10e3/ul Critically high 0.00-0.03 [facility] Comment on above: Performed By: #### C BC #### [facility] [address] [place] [address] Dr. Dorothy Kaur IG % 0.6 % Critically high 0.0-0.5 [facility] Comment on above: Performed By: #### C BC #### [facility] [address] [place] [address] Dr. Dorothy Kaur LYMPH # 2.8 103/ul Normal 1.2-3.8 [facility] Comment on above: Performed By: #### C BC #### [facility] [address] [place] [address] Dr. Dorothy Kaur Lymphocytes/100 WBC (Bld) 34.6 % Normal 20.5-60.0 [facility] Comment on above: Performed By: #### C BC #### [facility] [address] [place] [address] Dr. Dorothy Kaur MANUAL DIFF REQ NO Normal [facility] Comment on above: Performed By: #### C BC #### [facility] [address] [place], [place] [id number] Dr. Dorothy Kaur MCH (RBC) [Entitic mass] 30.2 pg Normal 25.9-34.0 [facility] Comment on above: Performed By: #### C BC #### [facility] [address] [place] [address] Dr. Dorothy Kaur MCHC (RBC) [Mass/Vol] 34.2 g/dL Normal 29.9-35.2 [facility] Comment on above: Performed By: #### C BC #### [facility] [address] [place] [address] Dr. Dorothy Kaur MCV (RBC) [Entitic vol] 88.4 fL Normal 80.0-94.0 [facility] Comment on above: Performed By: #### C BC #### [facility] [address] [place] [address] Dr. Dorothy Kaur MONO # 0.6 103/ul Normal 0.3-0.8 [facility] Comment on above: Performed By: #### C BC #### [facility] [address] [place] [address] Dr. Dorothy Kaur Monocytes/100 WBC (Bld) 7.9 % Normal 1.7-12.0 [facility] Comment on above: Performed By: #### C BC #### [facility] [address] [place] [address] Dr. Dorothy Kaur NEUT # 4.5 103/ul Normal 1.4-6.5 [facility] Comment on above: Performed By: #### C BC #### [facility] [address] [place] [address] Dr. Dorothy Kaur Neutrophils/100 WBC (Bld) 56.4 % Normal 43.0-75.0 [facility] Comment on above: Performed By: #### C BC #### [facility] [address] [place] [address] Dr. Dorothy Kaur Platelet mean volume (Bld) [Entitic vol] 8.8 fL Critically low 9.5-13.5 [facility] Comment on above: Performed By: #### C BC #### [facility] [address] [address] [address] Dorothy Kaur PLT 151 103/ul Normal 150-450 [facility] Comment on above: Performed By: #### C BC #### [facility] [address] [address] [address] Dorothy Kaur RBC 5.00 106/ul Normal 4.70-6.10 [facility] Comment on above: Performed By: #### C BC #### [facility] [address] [address] [address] Dorothy Kaur WBC 8.0 103/ul Normal 4.0-11.0 [facility] Comment on above: Performed By: #### C BC #### [facility] [address] [place] [address] Dr. Dorothy Kaur LIPID PROFILEon 02-16-2022 CHOL-HDL RATIO NORM SEE BELOW Normal [facility] Comment on above: Result Comment: 3.3 - 4.4 LOW RISK 4.4 - 7.1 AVERAGE RISK 7.1 - 11.0 MODERATE RISK >11.0 HIGH RISK Performed By: #### C MP, LIPID #### [facility] [address] [place] [address] Dr. Dorothy Kaur Cholesterol [Mass/Vol] 123 mg/dL Normal <=200 [facility] Comment on above: Performed By: #### C MP, LIPID #### [facility] [address] [place] [address] Dr. Dorothy Kaur Cholesterol in HDL [Mass/Vol] 35 mg/dL Critically low 40-60 [facility] Comment on above: Performed By: #### C MP, LIPID #### [facility] [address] [place] [address] Dr. Dorothy Kaur Cholesterol in LDL [Mass/Vol] 73.8 mg/dL Normal [facility] Comment on above: Performed By: #### C MP, LIPID #### [facility] [address] [place] [address] Dr. Dorothy Kaur Cholesterol.total/Chol esterol in HDL [Mass ratio] 3.5 {ratio} Normal [facility] Comment on above: Performed By: #### C MP, LIPID #### [facility] [address] [place] [address] Dr. Dorothy Kaur HDL NORMAL > or = 60 mg/dl - LO W CARDIOVASCULAR RISK <40 mg/dl - HIGH CARDIOVASCULAR RISK Normal [facility] Comment on above: Performed By: #### C MP, LIPID #### [facility] [address] [place] [address] Dr. Dorothy Kaur LDL CALC NORMAL SEE BELOW Normal [facility] Comment on above: Result Comment: <100 mg/dl OPTIMAL 100 - 129 mg/dl NEAR OR ABOVE OPTIMAL 130 - 159 mg/dl BORDERLINE HIGH 160 - 189 mg/dl HIGH >190 mg/dl VERY HIGH Performed By: #### C MP, LIPID #### [facility] [address] [place] [address] Dr. Dorothy Kaur Triglyceride [Mass/Vol] 71 mg/dL Normal <=150 [facility] Comment on above: Performed By: #### C MP, LIPID #### [facility] [address] [place] [address] Dr. Dorothy Kaur VLDL CALC 14.2 mg/dL Normal [facility] Comment on above: Performed By: #### C MP, LIPID #### [facility] [address] [place] [address] Dr. Dorothy Kaur PROF 14(COMP METB)on 022 Albumin [Mass/Vol] 3.4 g/dL Normal 3.4-5.0 [facility] Comment on above: Performed By: #### C MP, LIPID #### [facility] [address] [place] [address] Dr. Dorothy Kaur Albumin/Globulin [Mass ratio] 1.2 {ratio} Normal [facility] Comment on above: Performed By: #### C MP, LIPID #### [facility] [address] [place] [address] Dr. Dorothy Kaur ALP [Catalytic activity/Vol] 51 U/L Normal 46-116 [facility] Comment on above: Performed By: #### C MP, LIPID #### [facility] [address] [place] [address] Dr. Dorothy Kaur ALT [Catalytic activity/Vol] 30 U/L Normal 16-63 [facility] Comment on above: Performed By: #### C MP, LIPID #### [facility] [address] [place] [address] Dr. Dorothy Kaur Anion gap [Moles/Vol] 9.9 mmol/L Normal [facility] Comment on above: Performed By: #### C MP, LIPID #### [facility] [address] [place] [address] Dr. Dorothy Kaur AST [Catalytic activity/Vol] 15 U/L Normal 15-37 [facility] Comment on above: Performed By: #### C MP, LIPID #### [facility] [address] [place] [address] Dr. Dorothy Kaur Bilirubin [Mass/Vol] 0.7 mg/dL Normal 0.2-1.0 [facility] Comment on above: Performed By: #### C MP, LIPID #### [facility] [address] [place] [address] Dr. Dorothy Kaur Calcium [Mass/Vol] 8.3 mg/dL Critically low 8.5-10.1 [facility] Comment on above: Performed By: #### C MP, LIPID #### [facility] [address] [place] [address] Dr. Dorothy Kaur Chloride [Moles/Vol] 108 mmol/L Critically high 98-107 [facility] Comment on above: Performed By: #### C MP, LIPID #### [facility] [address] [place] [address] Dr. Dorothy Kaur CO2 [Moles/Vol] 27.2 mmol/L Normal 21.0-32.0 [facility] Comment on above: Performed By: #### C MP, LIPID #### [facility] [address] [place] [address] Dr. Dorothy Kaur Creatinine [Mass/Vol] 1.14 mg/dL Normal 0.70-1.30 [facility] Comment on above: Performed By: #### C MP, LIPID #### [facility] [address] [place] [address] Dr. Dorothy Kaur EGFR-AF SCOTTISH >60 Normal >=60 [facility] Comment on above: Performed By: #### C MP, LIPID #### [facility] [address] [place] [address] Dr. Dorothy Kaur EGFR-NON AF SCOTTISH >60 Normal >=60 [facility] Comment on above: Performed By: #### C MP, LIPID #### [facility] [address] [place] [address] Dr. Dorothy Kaur Globulin (S) [Mass/Vol] 2.8 g/dL Normal [facility] Comment on above: Performed By: #### C MP, LIPID #### [facility] [address] [place] [address] Dr. Dorothy Kaur Glucose [Mass/Vol] 100 mg/dL Normal 74-106 [facility] Comment on above: Performed By: #### C MP, LIPID #### [facility] [address] [place] [address] Dr. Dorothy Kaur Potassium [Moles/Vol] 4.1 mmol/L Normal 3.5-5.1 [facility] Comment on above: Performed By: #### C MP, LIPID #### [facility] [address] [place] [address] Dr. Dorothy Kaur Protein [Mass/Vol] 6.2 g/dL Critically low 6.4-8.2 [facility] Comment on above: Performed By: #### C MP, LIPID #### [facility] [address] [place] [address] Dr. Dorothy Kaur Sodium [Moles/Vol] 141 mmol/L Normal 136-145 [facility] Comment on above: Performed By: #### C MP, LIPID #### [facility] [address] [place] [address] Dr. Dorothy Kaur Urea nitrogen [Mass/Vol] 21.0 mg/dL Critically high 7.0-18.0 [facility] Comment on above: Performed By: #### C MP, LIPID #### [facility] [address] [place] [address] Dr. Dorothy Kaur Urea nitrogen/Creatinine [Mass ratio] 18.4 mg/mg Normal [facility] Comment on above: Performed By: #### C MP, LIPID #### [facility] [address] [address] [address] Dorothy Kaur Vital Signs Date Time Vital Sign Value Performing Clinician Facility 04-24-2024 08:14-0400 Blood Pressure Location Marika Orzech [facility] 04-24-2024 08:14-0400 Diastolic blood pressure 78 mm[Hg] Marika Orzech [facility] 04-24-2024 08:14-0400 Heart rate 77 /min Marika Orzech [facility] 04-24-2024 08:14-0400 Respiratory rate 16 /min Marika Orzech [facility] 04-24-2024 08:14-0400 Systolic blood pressure 126 mm[Hg] Marika Orzech [facility] 04-20-2024 12:05-0400 Diastolic blood pressure 94 mm[Hg] DO Antony Thompson Work Phone: [facility] 04-20-2024 12:05-0400 Heart rate 67 /min DO Antony Thompson Work Phone: [facility] 04-20-2024 12:05-0400 Respiratory rate 16 /min DO Antony Thompson Work Phone: [facility] 04-20-2024 12:05-0400 SaO2% (BldA) [Mass fraction] 98 % DO Antony Thompson Work Phone: [facility] 04-20-2024 12:05-0400 Systolic blood pressure 143 mm[Hg] DO Antony Thompson Work Phone: [facility] 04-20-2024 11:10-0400 Body temperature 97.8 [degF] DO Antony Thompson Work Phone: [facility] 04-20-2024 10:45-0400 Inhaled oxygen flow rate 0 L/min DO Antony Thompson Work Phone: [facility] 04-20-2024 07:32-0400 Body height 185.42 cm DO Antony Thompson Work Phone: [facility] 04-20-2024 07:32-0400 Body weight 99 kg DO Antony Thompson Work Phone: [facility] 04-12-2024 10:52-0400 Body height 185.42 cm DO Antony Thompson Work Phone: [facility] 04-12-2024 10:52-0400 Body mass index (BMI) [Ratio] 28.8 kg/m2 DO Antony Thompson Work Phone: [facility] 04-12-2024 10:52-0400 Body temperature 97.9 [degF] DO Antony Thompson Work Phone: [facility] 04-12-2024 10:52-0400 Body weight 99.33 kg DO Atnony Thompson Work Phone: [facility] 04-12-2024 10:52-0400 Diastolic blood pressure 82 mm[Hg] DO Antony Thompson Work Phone: [facility] 04-12-2024 10:52-0400 Heart rate 66 /min DO Antony Thompson Work Phone: [facility] 04-12-2024 10:52-0400 Respiratory rate 16 /min DO Antony Thompson Work Phone: [facility] 04-12-2024 10:52-0400 SaO2% (BldA) [Mass fraction] 97 % DO Antony Thompson Work Phone: [facility] 04-12-2024 10:52-0400 Systolic blood pressure 135 mm[Hg] DO Antony Thompson Work Phone: [facility] 03-29-2024 13:58-0400 Body height 185.42 cm DO Antony Thompson Work Phone: [facility] 03-29-2024 13:58-0400 Body mass index (BMI) [Ratio] 29 kg/m2 DO Antony Thompson Work Phone: [facility] 03-29-2024 13:58-0400 Body temperature 97.5 [degF] DO Antony Thompson Work Phone: [facility] 03-29-2024 13:58-0400 Body weight 99.79 kg DO Antony Thompson Work Phone: [facility] 03-29-2024 13:58-0400 Diastolic blood pressure 82 mm[Hg] DO Antony Thompson Work Phone: [facility] 03-29-2024 13:58-0400 Heart rate 73 /min DO Antony Thompson Work Phone: [facility] 03-29-2024 13:58-0400 Respiratory rate 16 /min DO Antony Thompson Work Phone: [facility] 03-29-2024 13:58-0400 SaO2% (BldA) [Mass fraction] 97 % DO Antony Thompson Work Phone: [facility] 03-29-2024 13:58-0400 Systolic blood pressure 138 mm[Hg] DO Antony Thompson Work Phone: [facility] 03-01-2024 15:12-0400 Body temperature 98 [degF] [employer] Marika Orzech Work Phone: [facility] 03-01-2024 15:12-0400 Diastolic blood pressure 60 mm[Hg] [employer] Marika Orzech Work Phone: [facility] 03-01-2024 15:12-0400 Heart rate 71 /min [employer] Marika Orzech Work Phone: [facility] 03-01-2024 15:12-0400 Respiratory rate 15 /min [employer] Marika Orzech Work Phone: [facility] 03-01-2024 15:12-0400 SaO2% (BldA) [Mass fraction] 96 % [employer] Marika Orzech Work Phone: [facility] 03-01-2024 15:12-0400 Systolic blood pressure 104 mm[Hg] [employer] Marika Orzech Work Phone: [facility] 03-01-2024 12:25-0400 Body height 185.42 cm [employer] Marika Orzech Work Phone: [facility] 03-01-2024 05:26-0400 Body weight 99.5 kg [employer] Marika Orzech Work Phone: [facility] 02-29-2024 16:54-0400 Inhaled oxygen flow rate 8 L/min [employer] Marika Orzech Work Phone: [facility] 02-29-2024 14:02-0400 Body mass index (BMI) [Ratio] 28.8 kg/m2 [employer] Marika Orzech Work Phone: [facility] 02-27-2024 23:45-0400 Inhaled oxygen concentration 30 % [employer] Marika Orzech Work Phone: [facility] 02-26-2024 09:10-0400 Body height 185.42 cm [employer] Marika Orzech Work Phone: [facility] 02-26-2024 09:10-0400 Body mass index (BMI) [Ratio] 28.8 kg/m2 [employer] Marika Orzech Work Phone: [facility] 02-26-2024 09:10-0400 Body temperature 98 [degF] SALVAGE SUPERVISOR-BC Marika Orzech Work Phone: [facility] 02-26-2024 09:10-0400 Body weight 99.33 kg SALVAGE SUPERVISOR-BC Marika Orzech Work Phone: [facility] 02-26-2024 09:10-0400 Diastolic blood pressure 71 mm[Hg] SALVAGE SUPERVISOR-BC Marika Orzech Work Phone: [facility] 02-26-2024 09:10-0400 Heart rate 82 /min SALVAGE SUPERVISOR[employer]BC Marika Orzech Work Phone: [facility] 02-26-2024 09:10-0400 Respiratory rate 16 /min SALVAGE SUPERVISOR-BC Marika Orzech Work Phone: [facility] 02-26-2024 09:10-0400 SaO2% (BldA) [Mass fraction] 96 % SALVAGE SUPERVISOR-BC Marika Orzech Work Phone: [facility] 02-26-2024 09:10-0400 Systolic blood pressure 111 mm[Hg] SALVAGE SUPERVISOR-BC Marika Orzech Work Phone: [facility] 01-07-2024 10:44-0400 Body height 185.42 cm SALVAGE SUPERVISOR[employer]BC Marika Orzech Work Phone: [facility] 01-07-2024 10:44-0400 Body weight 99.79 kg SALVAGE SUPERVISOR-BC Marika Orzech Work Phone: [facility] 11-29-2023 08:07-0400 Diastolic blood pressure 72 mm[Hg] Marika Orzech [facility] 11-29-2023 08:07-0400 Heart rate 75 /min Marika Orzech [facility] 11-29-2023 08:07-0400 Respiratory rate 16 /min Marika Orzech [facility] 11-29-2023 08:07-0400 Systolic blood pressure 117 mm[Hg] Marika Orzech [facility] 09-05-2023 15:25-0500 Body height 185.42 cm Anjelica Ganga Other [employer] Other 09-05-2023 15:25-0500 Body mass index (BMI) [Ratio] 29.02 kg/m2 Anjelica Ganga Other [facility] Other 09-05-2023 15:25-0500 Body temperature 98.4 [degF] Anjelica Ganga Other [facility] Other 09-05-2023 15:25-0500 Body weight 99.79 kg Anjelica Ganga Other [facility] Other 09-05-2023 15:25-0500 Diastolic blood pressure 76 mm[Hg] Anjelica Ganga Other [facility] Other 09-05-2023 15:25-0500 Respiratory rate 16 /min Anjelica Ganga Other [facility] Other 09-05-2023 15:25-0500 SaO2% (BldA) [Mass fraction] 97 % Anjelica Ganga Other [facility] Other 09-05-2023 15:25-0500 Systolic blood pressure 133 mm[Hg] Anjelica Ganga Other [facility] [employer] Other 12-31-2022 10:47-0400 Diastolic blood pressure 65 mm[Hg] MD Fuad Sunshine Work Phone: [facility] 12-31-2022 10:47-0400 Heart rate 62 /min MD Fuad Sunshine Work Phone: [facility] 12-31-2022 10:47-0400 Respiratory rate 16 /min MD Fuad Sunshine Work Phone: [facility] 12-31-2022 10:47-0400 SaO2% (BldA) [Mass fraction] 95 % MD Fuad Sunshine Work Phone: [facility] 12-31-2022 10:47-0400 Systolic blood pressure 102 mm[Hg] MD Fuad Sunshine Work Phone: [facility] 12-31-2022 09:17-0400 Body height 185.42 cm MD Fuad Sunshine Work Phone: [facility] 12-31-2022 09:17-0400 Body temperature 98 [degF] MD Fuad Sunshine Work Phone: [facility] 12-31-2022 09:17-0400 Body weight 97.52 kg MD Fuad Sunshine Work Phone: [facility] 11-24-2022 08:43-0400 Blood Pressure Location Kassidy Lue [facility] 11-24-2022 08:43-0400 Diastolic blood pressure 71 mm[Hg] Kassidy Lue [facility] 11-24-2022 08:43-0400 Heart rate 67 /min Kassidy Lue [facility] 11-24-2022 08:43-0400 Systolic blood pressure 118 mm[Hg] Kassidy Lue [facility] 11-30-2021 08:10-0400 Blood Pressure Location Annette Parker Jr. [facility] 11-30-2021 08:10-0400 Diastolic blood pressure 85 mm[Hg] Annette Parker Jr. [facility] 11-30-2021 08:10-0400 Heart rate 75 /min Annette Parker Jr. [facility] 11-30-2021 08:10-0400 Systolic blood pressure 131 mm[Hg] Annette Parker Jr. [facility] Encounters Encounter Date Encounter Type Care Provider Facility Start: 10-24-2024 ambulatory Kassidy Shonda Cunningham Facility:[facility] Start: 05-10-2024 ambulatory Rashida Hilton ty:[facility] Start: 04-30-2024 End: 04-30-2024 ambulatory JERED GOMES V Not Available Start: 04-24-2024 End: 04-24-2024 ambulatory Marika X Orzech Facility:[facility] Start: 04-24-2024 End: 04-24-2024 Patient encounter procedure Marika X Orzech [facility] Start: 04-20-2024 End: 04-20-2024 Admission to same day surgery center DO Antony Thompson Work Phone: [facility] [place] Start: 04-20-2024 End: 04-20-2024 ambulatory DO Antony Thompson Work Phone: [facility] Work Phone: Start: 04-17-2024 End: 04-17-2024 Patient encounter procedure DO Antony Thompson Work Phone: [facility]Pre[facility] Work Phone: Start: 04-17-2024 End: 04-17-2024 ambulatory DO Antony Santiago Thompson Work Phone: [facility] Work Phone: Start: 04-16-2024 End: 04-16-2024 ambulatory JERED ELISEO De Leon Not Available Start: 04-12-2024 End: 04-12-2024 Patient encounter procedure DO Antony Thompson Work Phone: [facility] Work Phone: Start: 04-12-2024 Registered Recurring DO Antony Thompson Work Phone: [facility] Acute Work Phone: Start: 03-29-2024 End: 03-29-2024 Patient encounter procedure DO Antony Thompson Work Phone: [facility] Work Phone: Start: 03-19-2024 End: 03-19-2024 Patient encounter procedure DO Antonysyeda Thompson Work Phone: [facility] Work Phone: Start: 03-02-2024 End: 03-02-2024 ambulatory Rashida L Jcoelynn Facility:[facility] Nimisha craven Start: 03-02-2024 End: 04-04-2024 ambulatory Rashida L Jocelynn Facility:[id number] Start: 02-28-2024 Non-patient / Non-visit SALVAGE SUPERVISOR- Marika Fisher Work Phone: [facility] Work Phone: Start: 02-27-2024 End: 03-01-2024 Evaluation and management of inpatient SALVAGE SUPERVISOR-BC Marika Orzech Work Phone: [facility] Work Phone: Start: 02-27-2024 End: 02-27-2024 ambulatory Rashida L Jocelynn Facility:[facility] Start: 02-26-2024 End: 02-26-2024 Patient encounter procedure SALVAGE SUPERVISOR-BC Marika Orzech Work Phone: [facility] Work Phone: Start: 02-16-2024 End: 02-16-2024 ambulatory Rashida L Jocelynn Facility:[facility] Start: 01-09-2024 End: 01-09-2024 Patient encounter procedure SALVAGE SUPERVISOR-BC Marika Orzech Work Phone: [facility] [place] Work Phone: Start: 01-09-2024 End: 01-09-2024 ambulatory NON STAFF [facility] Work Phone: Start: 11-29-2023 End: 11-29-2023 ambulatory Marika X Orzech Facility:[facility] Start: 11-29-2023 End: 11-29-2023 Patient encounter procedure Marika X Orzech [facility] [place] Start: 10-26-2023 End: 10-26-2023 ambulatory Rashida L Jocelynn Facility:[facility] Start: 09-05-2023 End: 09-05-2023 ambulatory Anjelica Ganga Other [employer] Other Start: 09-05-2023 Office outpatient vi sit 15 minutes Anjelica Ganga [facility] Start: 08-11-2023 End: 08-11-2023 ambulatory ADRIANA BEY Facility:[facility] Start: 07-20-2023 End: 07-20-2023 ambulatory Rashida L Jocelynn Facility:[facility] Start: 07-01-2023 End: 07-01-2023 ambulatory Rashida L Jocelynn [facility]: [facility] Start: 12-31-2022 End: 12-31-2022 Admission to same day surgery center MD Fuad Sunshine Work Phone: [facility] Work Phone: Start: 12-31-2022 End: 12-31-2022 ambulatory MD Fuad Sunshine Work Phone: [facility] Work Phone: Start: 11-24-2022 End: 11-24-2022 Patient encounter procedure Kassidychevy Cunningham [facility] Start: 10-02-2022 End: 10-03-[address] FUAD SUNSHINE . Facility:[facility] Start: 08-13-2022 End: 08-14-[address] FUAD SUNSHINE . Facility:[facility] Start: 03-09-2022 End: 03-09-2022 Patient encounter procedure MD Fuad Sunshine Work Phone: [facility] Start: 02-16-2022 End: 02-17-[address] FUAD SUNSHINE . Facility:[facility] Start: 11-30-2021 End: 11-30-2021 Patient encounter procedure Annette Parker Jr. [facility] Start: 11-27-2021 End: 11-28-[address] FUAD SUNSHINE . Facility:[facility] Procedures Date Procedure Procedure Detail Performing Clinician Start: 04-20-2024 Excision of cyst DO Dayne Thompson Work Phone: Start: 04-04-2024 Positron emission to mography with computed tomography DO Antony Thompson Work Phone: Start: 02-29-2024 Procedure on lower extremity SALVAGE SUPERVISOR-BC Marika Orzech Work Phone: Start: 02-29-2024 Investigation of tra nsfusion reaction SALVAGE SUPERVISOR-BC Marika Orzech Work Phone: Start: 02-28-2024 MRI of right humerus with contrast SALVAGE SUPERVISOR-BC Marika Orzech Work Phone: Start: 02-28-2024 Plain X-ray of right elbow SALVAGE SUPERVISOR-BC Marika Orzech Work Phone: Start: 02-28-2024 CT of right humerus with contrast SALVAGE SUPERVISOR-BC Marika Orzech Work Phone: Start: 02-27-2024 Blood culture for ba cteria, including anaerobic screen DO [employer] Work Phone: Start: 01-09-2024 MR prostate wo/w con FN P-BC Marika Orzech Work Phone: Start: 01-13-2023 Colonoscopy Marika Orz [facility] Comment on above: repeat in 3 years Start: 12-31-2022 Colonoscopy MD Fuad dunn Work Phone: Start: 10-02-[address] FUAD PAEZ . Comment on above: Performed By: #### P SAD #### [facility] [address] [place] [address] Dr. Dorothy Kaur Start: 08-13-[address] FUAD PAEZ . Comment on above: Performed By: #### P SAD #### [facility] [address] [address] [address] Dorothy Kaur Start: 03-09-2022 X-ray of left foot MD Hugo Sunshine Work Phone: Start: 11-27-[address] FUAD PAEZ . Comment on above: Performed By: #### P SAD #### [facility] [address] [place] [address] Dr. Dorothy Kaur Start: 06-02-2020 Cystoscopy Annette carnes Start: 06-07-2018 Ultrasonography by transrectal approach Annette Parker Jr. Start: 01-05-2016 Cystoscopy Annette Go carnes Jr. Start: 03-08-2011 Transrectal biopsy o f prostate using ultrasound guidance Annette Parker Jr. Tonsillectomy Anntete oglesby Plan of Treatment Date Care Activity Detail Author Start: 04-20-2024 End: 04-20-2024 [facility] Start: 04-12-2024 Patient referral [facility] Work Phone: Start: 03-01-2024 [facility] Start: 02-29-2024 End: 02-29-2024 [facility] Start: 02-28-2024 Consultation [facility] Start: 02-27-2024 Hospital admission [facility] Start: 02-27-2024 Blood culture for bacteria, including anaerobic screen Blood Culture [facility] Start: 02-27-2024 Drainage of Right Upper Arm Subcutaneous Tissue and Fascia, Open Approach Drainage of Right Upper Arm Subcutaneous Tissue and Fascia, Open Approach [facility] Start: 02-27-2024 Excision of Right Upper Arm Subcutaneous Tissue and Fascia, Open Approach, Diagnostic Excision of Right Upper Arm Subcutaneous Tissue and Fascia, Open Approach, Diagnostic [facility] Start: 12-31-2022 [facility] Patient Education [facility] Work Phone: Patient referral [facility] Work Phone: Immunizations Immunization Date Immunization Notes Care Provider [facility] 05-14-2022 influenza virus vaccine, unspecified formulation Kassidy Cunningham [facility] 05-14-2022 SARS-CoV-2 (COVID-19 ) [id number] Kassidy Cunningham [facility] 12-07-2021 SARS-CoV-2 mRNA (ujhaxulyafw-txas-giiar se) vaccine Kassidy Lue [facility] 05-10-2021 SARS-CoV-2 (COVID-19 ) mRNA BNT-162b2 vax Kassidy Lue [facility] 10-18-2020 SARS-CoV-2 (COVID-19 ) Ad26 vaccine, recombinant Annette Parker Jr. [facility] 09-27-2020 SARS-CoV-2 (COVID-19 ) mRNA BNT-162b2 vax Kassidy Lue [facility] 09-02-2020 SARS-CoV-2 (COVID-19 ) Ad26 vaccine, recombinant Annette Parker Jr. [facility] 06-05-2020 influenza virus vaccine, unspecified formulation Kassidy Cunningham [facility] 06-05-2020 pneumococcal conjuga te vaccine, 13 valent Kassidy Lue [facility] Payers Date Payer Category Payer Self-pay [id number] 1961 Medicare [id number] 1961 Private Health Insurance CLI [id number] 1953 Unknown [id number] [id number] 1953 Unknown [id number] 2.16.840.1.356511.3.579.2.593 1953 Unknown [id number] 2.16.840.1.731372.3.579.2.593 1953 Unknown [id number] 2.16.840.1.299098.3.579.2.593 1953 Unknown [id number] 2.16.840.1.218648.3.579.2.727 1953 Unknown [id number] 2.16.840.1.003036.3.579.2.727 1953 Unknown [id number] 2.16.840.1.839686.3.579.2.727 1953 Unknown [id number] 2.16.840.1.338884.3.579.2.727 1953 Unknown [id number] 2.16.840.1.560159.3.579.2.727 1953 Unknown [id number] 2.16.840.1.144792.3.579.2.727 1953 Unknown [id number] 2.16.840.1.452325.3.579.2.727 1953 Unknown [id number] 2.16.840.1.106395.3.579.2.727 1953 Unknown [id number] 2.16.840.1.663868.3.579.2.727 1953 Unknown [id number] 2.16.840.1.452307.3.579.2.727 1953 Unknown [id number] 2.16.840.1.501709.3.579.2.1259 1953 Unknown [id number] 2.16.840.1.864365.3.579.2.1259 Unknown [id number] Unknown [employer] [id number] Unknown [id number] 2.16.840.1.056859.3.579.2.531 Unknown [id number] 2.16.840.1.761746.3.579.2.531 Unknown [id number] 2.16.840.1.554163.3.579.2.531 Unknown [id number] 2.16.840.1.171472.3.579.2.531 Unknown [id number] 2.16.840.1.770790.3.579.2.531 Worker's Compensation [facility] [id number] Social History Date Type Detail Facility Start: 06-03-2021 End: 04-24-2024 Tobacco smoking status Never smoked tobacco (finding) [facility] Sex Assigned At Male 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 [facility] Work Phone: 11-29-2023 Functional Status N/A [facility] 11-24-2022 Functional Status N/A [facility] Mental Status Date Assessment Result Facility 03-01-2024 Cognitive function Cognitive Sta tus Patient at Baseline [facility] Work Phone: Clinical Notes 11-30-2021 to 04-24-2024 Note Date & Type Note Facility 04-24-2024 Hospital Discharge instructions Patient Education 04/24/2024 08:54:07 Prostate Cancer Screening Prostate Cancer Screening Prostate cancer screening is testing that is done to check for the presence of prostate cancer in men. The prostate gland is a walnut-sized gland that is located below the bladder and in front of the rectum in males. The function of the prostate is to add fluid to semen during ejaculation. Prostate cancer is one of the most common types of cancer in men. Who should have prostate cancer screening? Screening recommendations vary based on age and other risk factors, as well as between the professional organizations who make the recommendations. In general, screening is recommended if: You are age 50 to 70 and have an average risk for prostate cancer. You should talk with your health care provider about your need for screening and how often screening should be done. Because most prostate cancers are slow growing and will not cause , screening in this age group is generally reserved for men who have a 10- to 15-year life expectancy. You are younger than age 50, and you have these risk factors: ?Having a father, brother, or uncle who has been diagnosed with prostate cancer. The risk is higher if your family member's cancer occurred at an early age or if you have multiple family members with prostate cancer at an early age. ?Being a male who is Black or is of [place] or sub-Saharan descent. In general, screening is not recommended if: You are younger than age 40. You are between the ages of 40 and 49 and you have no risk factors. You are 70 years of age or older. At this age, the risks that screening can cause are greater than the benefits that it may provide. If you are at high risk for prostate cancer, your health care provider may recommend that you have screenings more often or that you start screening at a younger age. How is screening for prostate cancer done? The recommended prostate cancer screening test is a blood test called the prostate-specific antigen (PSA) test. PSA is a protein that is made in the prostate. As you age, your prostate naturally produces more PSA. Abnormally high PSA levels may be caused by: Prostate cancer. An enlarged prostate that is not caused by cancer (benign prostatic hyperplasia, or BPH). This condition is very common in older men. A prostate gland infection (prostatitis) or urinary tract infection. Certain medicines such as male hormones (like testosterone) or other medicines that raise testosterone levels. A rectal exam may be done as part of prostate cancer screening to help provide information about the size of your prostate gland. When a rectal exam is performed, it should be done after the PSA level is drawn to avoid any effect on the results. Depending on the PSA results, you may need more tests, such as: A physical exam to check the size of your prostate gland, if not done as part of screening. Blood and imaging tests. A procedure to remove tissue samples from your prostate gland for testing (biopsy). This is the only way to know for certain if you have prostate cancer. What are the benefits of prostate cancer screening? Screening can help to identify cancer at an early stage, before symptoms start and when the cancer can be treated more easily. There is a small chance that screening may lower your risk of dying from prostate cancer. The chance is small because prostate cancer is a slow-growing cancer, and most men with prostate cancer from a different cause. What are the risks of prostate cancer screening? The main risk of prostate cancer screening is diagnosing and treating prostate cancer that would never have caused any symptoms or problems. This is called overdiagnosisand overtreatment. PSA screening cannot tell you if your PSA is high due to cancer or a different cause. A prostate biopsy is the only procedure to diagnose prostate cancer. Even the results of a biopsy may not tell you if your cancer needs to be treated. Slow-growing prostate cancer may not need any treatment other than monitoring, so diagnosing and treating it may cause unnecessary stress or other side effects. Questions to ask your health care provider When should I start prostate cancer screening? What is my risk for prostate cancer? How often do I need screening? What type of screening tests do I need? How do I get my test results? What do my results mean? Do I need treatment? Where to find more information The [place] [employer]: www.cancer.org [place] [employer]: www.auanet.org Contact a health care provider if: You have difficulty urinating. You have pain when you urinate or ejaculate. You have blood in your urine or semen. You have pain in your back or in the area of your prostate. Summary Prostate cancer is a common type of cancer in men. The prostate gland is located below the bladder and in front of the rectum. This gland adds fluid to semen during ejaculation. Prostate cancer screening may identify cancer at an early stage, when the cancer can be treated more easily and is less likely to have spread to other areas of the body. The prostate-specific antigen (PSA) test is the recommended screening test for prostate cancer, but it has associated risks. Discuss the risks and benefits of prostate cancer screening with your health care provider. If you are age 70 or older, the risks that screening can cause are greater than the benefits that it may provide. This information is not intended to replace advice given to you by your health care provider. Make sure you discuss any questions you have with your health care provider. Document Revised: 01/11/2022 Document Reviewed: 01/11/2022 [email or web address] Patient Education 2023 [employer]. 04/24/2024 08:45:17 Benign Prostatic Hyperplasia Benign Prostatic Hyperplasia Benign prostatic hyperplasia (BPH) is an enlarged prostate gland that is caused by the normal aging process. The prostate may get bigger as a man gets older. The condition is not caused by cancer. The prostate is a walnut-sized gland that is involved in the production of semen. It is located in front of the rectum and below the bladder. The bladder stores urine. The urethra carries stored urine out of the body. An enlarged prostate can press on the urethra. This can make it harder to pass urine. The buildup of urine in the bladder can cause infection. Back pressure and infection may progress to bladder damage and kidney (renal) failure. What are the causes? This condition is part of the normal aging process. However, not all men develop problems from this condition. If the prostate enlarges away from the urethra, urine flow will not be blocked. If it enlarges toward the urethra and compresses it, there will be problems passing urine. What increases the risk? This condition is more likely to develop in men older than 50 years. What are the signs or symptoms? Symptoms of this condition include: Getting up often during the night to urinate. Needing to urinate frequently during the day. Difficulty starting urine flow. Decrease in size and strength of your urine stream. Leaking (dribbling) after urinating. Inability to pass urine. This needs immediate treatment. Inability to completely empty your bladder. Pain when you pass urine. This is more common if there is also an infection. Urinary tract infection (UTI). How is this diagnosed? This condition is diagnosed based on your medical history, a physical exam, and your symptoms. Tests will also be done, such as: A post-void bladder scan. This measures any amount of urine that may remain in your bladder after you finish urinating. A digital rectal exam. In a rectal exam, your health care provider checks your prostate by putting a lubricated, gloved finger into your rectum to feel the back of your prostate gland. This exam detects the size of your gland and any abnormal lumps or growths. An exam of your urine (urinalysis). A prostate specific antigen (PSA) screening. This is a blood test used to screen for prostate cancer. An ultrasound. This test uses sound waves to electronically produce a picture of your prostate gland. Your health care provider may refer you to a specialist in kidney and prostate diseases (urologist). How is this treated? Once symptoms begin, your health care provider will monitor your condition (active surveillance or watchful waiting). Treatment for this condition will depend on the severity of your condition. Treatment may include: Observation and yearly exams. This may be the only treatment needed if your condition and symptoms are mild. Medicines to relieve your symptoms, including: ?Medicines to shrink the prostate. ?Medicines to relax the muscle of the prostate. Surgery in severe cases. Surgery may include: ?Prostatectomy. In this procedure, the prostate tissue is removed completely through an open incision or with a laparoscope or robotics. ?Transurethral resection of the prostate (TURP). In this procedure, a tool is inserted through the opening at the tip of the penis (urethra). It is used to cut away tissue of the inner core of the prostate. The pieces are removed through the same opening of the penis. This removes the blockage. ?Transurethral incision (TUIP). In this procedure, small cuts are made in the prostate. This lessens the prostate's pressure on the urethra. ?Transurethral microwave thermotherapy (TUMT). This procedure uses microwaves to create heat. The heat destroys and removes a small amount of prostate tissue. ?Transurethral needle ablation (TUNA). This procedure uses radio frequencies to destroy and remove a small amount of prostate tissue. ?Interstitial laser coagulation (ILC). This procedure uses a laser to destroy and remove a small amount of prostate tissue. ?Transurethral electrovaporization (TUVP). This procedure uses electrodes to destroy and remove a small amount of prostate tissue. ?Prostatic urethral lift. This procedure inserts an implant to push the lobes of the prostate away from the urethra. Follow these instructions at home: Take usgc-ign-sdfdblq and prescription medicines only as told by your health care provider. Monitor your symptoms for any changes. Contact your health care provider with any changes. Avoid drinking large amounts of liquid before going to bed or out in public. Avoid or reduce how much caffeine or alcohol you drink. Give yourself time when you urinate. Keep all follow-up visits. This is important. Contact a health care provider if: You have unexplained back pain. Your symptoms do not get better with treatment. You develop side effects from the medicine you are taking. Your urine becomes very dark or has a bad smell. Your lower abdomen becomes distended and you have trouble passing urine. Get help right away if: You have a fever or chills. You suddenly cannot urinate. You feel light-headed or very dizzy, or you faint. There are large amounts of blood or clots in your urine. Your urinary problems become hard to manage. You develop moderate to severe low back or flank pain. The flank is the side of your body between the ribs and the hip. These symptoms may be an emergency. Get help right away. Call 911. Do not wait to see if the symptoms will go away. Do not drive yourself to the hospital. Summary Benign prostatic hyperplasia (BPH) is an enlarged prostate that is caused by the normal aging process. It is not caused by cancer. An enlarged prostate can press on the urethra. This can make it hard to pass urine. This condition is more likely to develop in men older than 50 years. Get help right away if you suddenly cannot urinate. This information is not intended to replace advice given to you by your health care provider. Make sure you discuss any questions you have with your health care provider. Document Revised: 02/03/2022 Document Reviewed: 02/03/2022 [email or web address] Patient Education 2023 [employer]. Follow Up Care 02/15/2024 10:43:30 With:Octavio EATON, Kassidy Merchant URL, URO Address: When: Unknown Comments:6 mos w/ PSA [facility] 04-24-2024 Note Patient Education Oncology Prostate Cancer Screening Prostate cancer screening is testing that is done to check for the presence of prostate cancer in men. The prostate gland is a walnut-sized gland that is located below the bladder and in front of the rectum in males. The function of the prostate is to add fluid to semen during ejaculation. Prostate cancer is one of the most common types of cancer in men. Who should have prostate cancer screening? Screening recommendations vary based on age and other risk factors, as well as between the professional organizations who make the recommendations. In general, screening is recommended if: ? You are age 50 to 70 and have an average risk for prostate cancer. You should talk with your health care provider about your need for screening and how often screening should be done. Because most prostate cancers are slow growing and will not cause , screening in this age group is generally reserved for men who have a 10- to 15-year life expectancy. ? You are younger than age 50, and you have these risk factors: ? Having a father, brother, or uncle who has been diagnosed with prostate cancer. The risk is higher if your family member's cancer occurred at an early age or if you have multiple family members with prostate cancer at an early age. ? Being a male who is Black or is of [place] or sub-Saharan descent. In general, screening is not recommended if: ? You are younger than age 40. ? You are between the ages of 40 and 49 and you have no risk factors. ? You are 70 years of age or older. At this age, the risks that screening can cause are greater than the benefits that it may provide. If you are at high risk for prostate cancer, your health care provider may recommend that you have screenings more often or that you start screening at a younger age. How is screening for prostate cancer done? The recommended prostate cancer screening test is a blood test called the prostate-specific antigen (PSA) test. PSA is a protein that is made in the prostate. As you age, your prostate naturally produces more PSA. Abnormally high PSA levels may be caused by: ? Prostate cancer. ? An enlarged prostate that is not caused by cancer (benign prostatic hyperplasia, or BPH). This condition is very common in older men. ? A prostate gland infection (prostatitis) or urinary tract infection. ? Certain medicines such as male hormones (like testosterone) or other medicines that raise testosterone levels. A rectal exam may be done as part of prostate cancer screening to help provide information about the size of your prostate gland. When a rectal exam is performed, it should be done after the PSA level is drawn to avoid any effect on the results. Depending on the PSA results, you may need more tests, such as: ? A physical exam to check the size of your prostate gland, if not done as part of screening. ? Blood and imaging tests. ? A procedure to remove tissue samples from your prostate gland for testing (biopsy). This is the only way to know for certain if you have prostate cancer. What are the benefits of prostate cancer screening? ? Screening can help to identify cancer at an early stage, before symptoms start and when the cancer can be treated more easily. ? There is a small chance that screening may lower your risk of dying from prostate cancer. The chance is small because prostate cancer is a slow-growing cancer, and most men with prostate cancer from a different cause. What are the risks of prostate cancer screening? The main risk of prostate cancer screening is diagnosing and treating prostate cancer that would never have caused any symptoms or problems. This is called overdiagnosisand overtreatment. PSA screening cannot tell you if your PSA is high due to cancer or a different cause. A prostate biopsy is the only procedure to diagnose prostate cancer. Even the results of a biopsy may not tell you if your cancer needs to be treated. Slow-growing prostate cancer may not need any treatment other than monitoring, so diagnosing and treating it may cause unnecessary stress or other side effects. Questions to ask your health care provider ? When should I start prostate cancer screening? ? What is my risk for prostate cancer? ? How often do I need screening? ? What type of screening tests do I need? ? How do I get my test results? ? What do my results mean? ? Do I need treatment? Where to find more information ? The [place] [employer]: www.cancer.org ? [place] [employer]: www.auanet.org Contact a health care provider if: ? You have difficulty urinating. ? You have pain when you urinate or ejaculate. ? You have blood in your urine or semen. ? You have pain in your back or in the area of your prostate. Summary ? Prostate cancer is a common type of cancer in men. The prostate gland is located below the bladder and in front of the rectum. (more content not included)... [facility] 03-01-2024 Discharge summary Note Date/Time March 01, 2024 4:06pm [place] [id number] Discharge Summary Signed Patient: Mily Guadalupe MR#: [id number] : 1955 Acct:[id number] Age/Sex: 68 / M Adm Date: 4 Loc: Room: [address] [place] [address]: Antony Thompson DO Copies to: Rashida Cabezas ECONOMIC SPECIALIST Antony Thompson, ~ Providers Date of Admission: 02/28/24 Date of Discharge: 03/01/24 Discharging Provider: Antony Thompson Primary Care Provider: Rashida Cabezas Consults: 02/27/24 20:40 Consult to General Surgery Routine Comment: sent through Consulting Provider: Britton Myers Reason For Exam: medial arm mass Has Provider Been Notified: Yes Date of Notification: 02/28/24 Time of Notification: 08:33 02/28/24 09:29 Consult to Orthopedic Surgery Routine Comment: notified Consulting Provider: Ata Celestin Reason For Exam: distal right arm mass Has Provider Been Notified: Yes Date of Notification: 02/28/24 Time of Notification: 10:11 Discharge Diagnosis (1) Abscess of arm, right: (2) BPH (benign prostatic hyperplasia): Final Diagnosis Final Discharge Diagnosis: Abscess on medial aspect of distal biceps Summary Hospital Course Hospital course: Mr Guadalupe is a 68-year-old male who is known to hospital the evening of February 27 as a transfer [facility] facility for chief complaint of mass on the medial aspectof his right elbow. Upon admission, a CT scan of his arm was obtained and was consistent with heterogeneous subcutaneous collection on the medial aspect of the distal arm concerning for abscess, general surgery was consulted who deferred the case to orthopedic surgery based on the location. Elbow x-ray was ordered and showed soft tissue swelling but there is no acute bony process, humerus MRI was then ordered and was consistent with developing abscess with adjacent cellulitis. Upon admission, blood cultures were obtained and the patient was started on vancomycin, he had been on Keflex in the outpatient setting and had noticed no improvement of this. With starting vancomycin, the patient is redness and swelling did mitigate substantially, his blood cultures remain negative throughout the admission. He went to the operating room on February 28, please see operative notes for details upon incision a large amount of purulence was noted. Cultures were sent from this. On March 01, the preliminary results from the cultures from [facility] were negative this is likely because patient started on vancomycin, I did speak orthopedic surgery and they both agreed to discharge patient on Bactrim and haveclose follow-up in the office with orthopedic surgery. I did relay to the patient that we will follow his cultures for the next 4 to 5 days, if they result positive that something Bactrim does not treat we will callhim and either send a new prescription or he will return to hospital for more IVantibiotics. He was discharged with no pain medication at his request as he thought he did not need anymore, he did receive a prescription for Bactrim and he has follow-up with orthopedic surgery on March 15. Time Spent with Patient Time spent providing/coordinating discharge services (# min): 25 Surgeries and Procedures Operation Date: 02/29/24 14:45 Actual Procedures p OR I&D right elbow abscess(Left) - Enoch Han DO Discharge Plan Discharge Plan Patient Disposition: Home Activity: Ambulate as Tolerated Comment: See ortho recs below Diet: Regular Additional Instructions: Orthopedic surgeon recommendations: *Limit activity right upper extremity. No lifting greater than 5 pounds as the incision heals Instructions: Know your Meds Stand Alone Forms: Work/School Release Form Prescriptions: Continued tamsulosin [Flomax] 0.4 mg capsule 0.4 mg PO QHS Patient Comments: take 1 capsule by mouth once daily famotidine 20 mg Tablet 20 mg PO DAILY finasteride 5 mg tablet 5 mg PO DAILY Patient Comments: take 1 tablet by mouth once daily sulfamethoxazole-trimethoprim [Bactrim DS] 800-160 mg tablet 1 tab PO BID 10 Days Qty: 20 0RF ibuprofen-acetaminophen 125-250 mg tablet 1 tab PO Q6HR PRN Discontinued cephalexin 500 mg capsule 500 mg PO QID Follow Up: Enoch Han DO [Active Staff] - 03/15/24 9:15 am (You have been scheduled for a follow up appointment for the following date and time, please call to reschedule if needed.) Rashida Cabezas NP-C [Primary Care Provider] - 03/02/24 2:00 pm (You have beenscheduled for a follow up appointment for the following date and time, please call to reschedule if needed. This appointment will be in the [place] office. The address is [address] [place] [address]) Exam Physical Exam Vital Signs: Temp Pulse Resp BP Pulse Ox O2 Del Method O2 Flow Rate 98.0 F 71 15 104/60 96 Room Air 8 03/01/24 15:12 03/01/24 15:12 03/01/24 15:12 03/01/24 15:12 03/01/24 15:12 03/01/24 15:12 02/29/24 16:54 FiO2 30 02/27/24 23:45 Narrative: General: Awake alert, no acute distress HEENT: head atraumatic, normocephalic, moist mucous membranes Neck: supple no masses, no lymphadenopathy CVS: regular rate and rhythm, no murmurs or gallops Respiratory: clear to auscultation bilaterally, no wheezing or crackles, symmetric expansion GI: soft, nondistended, nontender, positive bowel sounds with no organomegaly Extremity: Right extremity has bandage, dressing CDI. He is neurovascularly intact to distal extremity. Neuro: AOx3, CN II-VII intact. Moves all extremities in all planes of motion. Skin: dry, intact no rashes or lesions Diagnostic Studies Completed and Pending Studies Pending studies at discharge: 02/27/24 22:58 Blood Culture Routine 02/29/24 15:42 Wound Culture (Deep) Routine 02/29/24 15:44 Wound Culture (Deep) Routine 02/29/24 15:45 Wound Culture (Deep) Routine 03/02/24 23:00 Vancomycin,Trough [TOX] Timed Preliminary micro results at discharge 02/29/24 15:42 Aerobic Culture - Preliminary Elbow,Right - Abscess No Growth 1 Day Anaerobic Culture - Preliminary No Anaerobes Isolated 1 Day 02/29/24 15:45 Aerobic Culture - Preliminary Elbow,Right - Abscess No Growth 1 Day Anaerobic Culture - Preliminary No Anaerobes Isolated 1 Day 02/29/24 15:44 Aerobic Culture - Preliminary Elbow,Right - Abscess No Growth 1 Day Anaerobic Culture - Preliminary No Anaerobes Isolated 1 Day 02/27/24 22:58 Blood Culture - Preliminary Blood - Left Hand No Growth 2 Days 02/27/24 22:58 Blood Culture - Preliminary Blood - Right Antecubital No Growth 2 Days Labs on day of discharge: 03/01/24 05:36: Corrected WBC 19.5 H, RBC 4.95, Hgb 14.8, Hct 43.7, MCV 88.1, MCH 29.9, MCHC 33.9, RDW 12.9, Plt Count 223, MPV 7.2, PHA Creatinine Clear 82.82, Sodium 136, Potassium 4.6, Chloride 104, Carbon Dioxide 24.8, Anion Gap 11.8, BUN 14, Creatinine 1.03, Est GFR (CKD-EPI) > 60.0, Glucose 126 H, Calcium 8.8, Magnesium 1.9 02/29/24 23:08: Vancomycin Trough 11.4 Documented By: Antony Thompson DO 03/01/24 1601 Signed By: <Electronically signed by Antony Thompson DO> 03/01/24 1605 [facility] Work Phone: 1(929) 981-142608-01-2024 Progress note Author Enoch Han [facility] March 01, 2024 8:12am Note Date/Time March 01, 2024 8:0 4am [facility] [address] [place] [address] Orthopedic Progress Note Signed Patient: Mily Guadalupe MR#: [id number] : 1955 Acct:[id number] Age/Sex: 68 / M Adm Date: 4 Loc: 4N Room: 4G0354-3 Type: ADM IN Attending Dr: Antony Thompson DO Copies to: ~ Date of Service: 03/01/2024 Subjective Subjective Interval History: Mumtaz is doing well this morning. His pain is significantly better than before surgery. Denies any systemic symptoms. Exam Physical Exam Vital Signs: Temp Pulse Resp BP Pulse Ox O2 Del Method O2 Flow Rate 98.6 F 78 16 119/62 96 Room Air 8 03/01/24 03:48 03/01/24 03:48 02/29/24 19:18 03/01/24 03:48 03/01/24 03:48 03/01/24 00:00 02/29/24 16:54 FiO2 30 02/27/24 23:45 examination of the right upper extremity shows surgical incision intact with mild sanguinous drainage. Minimal tenderness around the area. Drain site with no surrounding drainage. GISELL drain with minimal drainage since surgery. Painless range of motion of the elbow. AIN, PIN, radial, median, ulnar nerves intact. No tenderness in the axillary region. Sensation intact to light touch C5-T1. Radial artery palpable. Objective Labs Labs: Laboratory Results - last 24 hr 02/29/24 02/29/24 03/01/24 13:34 23:08 05:36 Corrected WBC 19.5 H RBC 4.95 Hgb 14.8 Hct 43.7 MCV 88.1 MCH 29.9 MCHC 33.9 RDW 12.9 Plt Count 223 MPV 7.2 PHA Creatinine Clear 82.82 Sodium 136 Potassium 4.6 Chloride 104 Carbon Dioxide 24.8 Anion Gap 11.8 BUN 14 Creatinine 1.03 Est GFR (CKD-EPI) > 60.0 Glucose 126 H Calcium 8.8 Magnesium 1.9 Vancomycin Peak 30.5 Vancomycin Trough 11.4 Micro Microbiology Results: Microbiology 02/27/24 22:58 Blood - Left Hand Blood Culture - Preliminary No Growth 2 Days 02/27/24 22:58 Blood - Right Antecubital Blood Culture - Preliminary No Growth 2 Days Assessment / Plan Assessment and plan (1) Arm mass: Code(s): R22.30 - Localized swelling, mass and lump, unspecified upper limb (2) Abscess of arm, right: Code(s): L02.413 - Cutaneous abscess of right upper limb Plan Patient is status post I&D right distal upper arm abscess with cheri purulence noted. Thorough I&D and drain placed. Drain removed this morning. I do not anticipate any further surgical intervention at this time. It appears that he had cutaneous infection that spread through the lymph system and accumulated which caused him necrotic lymph node and subsequent abscess. Patient does have enlarged lymph nodes in the axilla however those are nontender and do not appearto have any underlying abscess that is forming. -No orthopedic surgical intervention further -Limit activity right upper extremity. No lifting greater than 5 pounds as the incision heals -Continue antibiotics per primary. Due to the significant purulence, it might be best to wait for preliminary cultures before discharging him on oral antibiotics -Continue care per primary team -Follow-up cultures as well as pathology specimens intraoperative. Documented By: Enoch Han DO 03/01/24 0802 Signed By: <Electronically signed by Enoch Han DO> 03/01/2412 [facility] Work Phone: 1(157) 383-598607-31-2024 Progress note Author Antony Thompson [facility] February 29, 2024 12:36pm Note Date/Time February 29, 2024 12:3 6pm [facility] [address] [place] [address] Hospitalist Progress Note Signed Patient: Mily Guadalupe MR#: [id number] : 1955 Acct:[id number] Age/Sex: 68 / M Adm Date: 4 Loc: 4N Room: [address] [place] [address] Type: ADM IN Attending Dr: Antony Thompson DO Copies to: ~ Date of Service: 02/29/2024 Subjective Subjective Narrative: Seen and evaluated, his right arm mass appears unchanged from yesterday in regards to size, fluctuance, and erythema surrounding it. He is scheduled for the operating theater later on today. All questions answered. Exam Physical Exam Vital Signs: Temp Pulse Resp BP Pulse Ox O2 Del Method FiO2 98.9 F 76 16 136/78 95 Room Air 30 02/29/24 11:27 02/29/24 11:27 02/29/24 11:27 02/29/24 11:27 02/29/24 11:27 02/29/24 11:27 02/27/24 23:45 Narrative: General: Awake alert, no acute distress HEENT: head atraumatic, normocephalic, moist mucous membranes Neck: supple no masses, no lymphadenopathy CVS: regular rate and rhythm, no murmurs or gallops Respiratory: clear to auscultation bilaterally, no wheezing or crackles, symmetric expansion GI: soft, nondistended, nontender, positive bowel sounds with no organomegaly Extremity: moves all extremities, no restrictions of movements, no calf tenderness, right arm has a palpable hard mass on the medial portion of distal bicep measuring roughly 3 x 5 cm with surrounding erythema. Erythema is marked with skin marker. Neuro: AOx3, CN II-VII intact. Moves all extremities in all planes of motion. Skin: dry, intact no rashes or lesions Objective Lab Results 02/28/24 06:13 02/28/24 06:13 Microbiology Results Microbiology 02/27/24 22:58 Blood - Left Hand Blood Culture - Preliminary No Growth 1 Day 02/27/24 22:58 Blood - Right Antecubital Blood Culture - Preliminary No Growth 1 Day Meds Allergies and Active Meds Allergies No Known Allergies Allergy (Verified 02/26/24 09:08) Active Meds: Active Medications Generic Name Dose Route Start Last Admin Trade Name Freq PRN Reason Stop Dose Admin Acetaminophen 650 mg 02/27/24 20:40 Acetaminophen 325 Mg Tablet PO 02/26/25 20:39 Q6HR PRN Pain Scale 1 - 3 or fever Hydrocodone Bitart/Acetaminophen 1 tab 02/27/24 20:40 02/29/24 05:33 Hydrocodone/Acetaminophen 5-325 Mg Tablet PO 1 tab Q4H PRN Administration Pain Scale 4 - 7 Finasteride 5 mg 02/28/24 09:00 02/29/24 10:32 Finasteride 5 Mg Tablet PO 02/27/25 08:59 Not Given DAILY MARISA Lactated Ringer's 1,000 mls @ 100 mls/hr 02/27/24 23:00 02/29/24 10:31 Lactated Ringers IV 02/26/25 22:59 Not Given .Q10H MARISA Vancomycin HCl 1.25 gm/ 275 mls @ 183.333 mls/hr 02/27/24 23:00 02/29/24 10:51 Dextrose IV 02/26/25 22:59 183.33 mls/hr Q12H MARISA Administration Lactated Ringer's 1,000 mls @ 20 mls/hr 02/29/24 05:01 02/29/24 10:31 Lactated Ringers IV 03/01/24 05:00 Not Given .Q24H ONE Lidocaine HCl 0.1 ml 02/29/24 05:01 Lidocaine 1% 50 Ml Vial INTRADERMA PREOP PRN Venipuncture x 1 Dose Melatonin 5 mg 02/27/24 20:40 Melatonin 5 Mg Tablet PO 02/26/25 20:39 QHS PRN Insomnia Morphine Sulfate 2 mg 02/27/24 20:40 02/28/24 06:19 Morphine Sulfate 2 Mg/Ml Vial IV-PUSH 2 mg Q4H PRN Administration Pain Scale 8 - 10 Ondansetron HCl 4 mg 02/27/24 20:40 Ondansetron 4 Mg/2 Ml Vial IV-PUSH 02/26/25 20:39 Q8H PRN Nausea And Vomiting Tamsulosin HCl 0.4 mg 02/27/24 22:00 02/28/24 21:55 Tamsulosin 0.4 Mg Cap.Er.24h PO 02/26/25 21:59 0.4 mg QHS MARISA Administration Vancomycin HCl 1 each 02/27/24 21:13 Vancomycin - Pharmacy Dosing 1 Each Miscell IV ONCE PRN ZZ.Pharmacy Consult Protocol A&P - Hospitalist Assessment/Plan (1) Arm mass: Plan: ? Ultrasound results from [facility] noted in the H&P ? CT scan of right elbow with contrast ordered is notable for a heterogeneous subcutaneous collection on the medial aspect of the distal arm measuring 3.7 cm concerning for abscess. ? Humerus MRI ordered notable for ill-defined fluid collection adjacent to extensive soft tissue edema and skin thickening, concern for developing abscess with adjacent cellulitis. ? Patient had slight leukocytosis at 14.7, repeat CBC shows a WBC count of 14.5. ? Blood cultures negative day 1 ? Patient's chest x-ray was normal from [place] ? Continue vancomycin ? Orthopedic to take patient to operating theater today ? Resume regular diet after surgery ? One-time dose of Toradol ordered (2) BPH (benign prostatic hyperplasia): Plan: ? Continue home medications tamsulosin and finasteride Plan ? DVT prophylax with SCDs ? Regular diet, n.p.o. midnight ? Full code Documented By: Antony Thompson DO 02/29/24 1233 Signed By: <Electronically signed by Antony Thompson, > 02/29/24 1236 [facility] Work Phone: 1(424) 370-135407-30-2024 Progress note Author Antony Thompson [facility] February 28, 2024 3:37pm Note Date/Time February 28, 2024 3:38 pm [facility] [address] [place] [address] Hospitalist Progress Note Signed Patient: Mily Guadalupe MR#: [id number] : 1955 Acct:[id number] Age/Sex: 68 / M Adm Date: 4 Loc: 4N Room: 7M5424-6 Type: ADM IN Attending Dr: Antony Thompson DO Copies to: ~ Date of Service: 02/28/2024 Subjective Subjective Narrative: Seen and evaluated, patient denies any improvement overnight but the pain is controlled with current regimen, updated him on today's plan, he is allowed to diet, CT results pending and MRI ordered per orthopedic surgery. All questions answered. Exam Physical Exam Vital Signs: Temp Pulse Resp BP Pulse Ox O2 Del Method FiO2 98.3 F 69 16 115/70 95 Room Air 30 02/28/24 11:02/28/24 11:02/28/24 11:02/28/24 11:02/28/24 11:02/28/24 11:02/27/24 23:45 Narrative: General: Awake alert, no acute distress HEENT: head atraumatic, normocephalic, moist mucous membranes Neck: supple no masses, no lymphadenopathy CVS: regular rate and rhythm, no murmurs or gallops Respiratory: clear to auscultation bilaterally, no wheezing or crackles, symmetric expansion GI: soft, nondistended, nontender, positive bowel sounds with no organomegaly Extremity: moves all extremities, no restrictions of movements, no calf tenderness, right arm has a palpable hard mass on the medial portion of distal bicep measuring roughly 3 x 5 cm with surrounding erythema. Erythema is marked with skin marker. Neuro: AOx3, CN II-VII intact. Moves all extremities in all planes of motion. Skin: dry, intact no rashes or lesions Objective Lab Results 02/28/24 06:13 02/28/24 06:13 Meds Allergies and Active Meds Allergies No Known Allergies Allergy (Verified 02/26/24 09:08) Active Meds: Active Medications Generic Name Dose Route Start Last Admin Trade Name Freq PRN Reason Stop Dose Admin Acetaminophen 650 mg 02/27/24 20:40 Acetaminophen 325 Mg Tablet PO 02/26/25 20:39 Q6HR PRN Pain Scale 1 - 3 or fever Hydrocodone Bitart/Acetaminophen 1 tab 02/27/24 20:40 02/28/24 14:02 Hydrocodone/Acetaminophen 5-325 Mg Tablet PO 1 tab Q4H PRN Administration Pain Scale 4 - 7 Finasteride 5 mg 02/28/24 09:00 02/28/24 09:21 Finasteride 5 Mg Tablet PO 02/27/25 08:59 5 mg DAILY MARISA Administration Lactated Ringer's 1,000 mls @ 100 mls/hr 02/27/24 23:00 02/28/24 09:21 Lactated Ringers IV 02/26/25 22:59 100 mls/hr .Q10H MARISA Administration Vancomycin HCl 1.25 gm/ 275 mls @ 183.333 mls/hr 02/27/24 23:00 02/28/24 13:58 Dextrose IV 02/26/25 22:59 183.33 mls/hr Q12H MARISA Administration Melatonin 5 mg 02/27/24 20:40 Melatonin 5 Mg Tablet PO 02/26/25 20:39 QHS PRN Insomnia Morphine Sulfate 2 mg 02/27/24 20:40 02/28/24 06:19 Morphine Sulfate 2 Mg/Ml Vial IV-PUSH 2 mg Q4H PRN Administration Pain Scale 8 - 10 Ondansetron HCl 4 mg 02/27/24 20:40 Ondansetron 4 Mg/2 Ml Vial IV-PUSH 02/26/25 20:39 Q8H PRN Nausea And Vomiting Tamsulosin HCl 0.4 mg 02/27/24 22:00 02/27/24 22:38 Tamsulosin 0.4 Mg Cap.Er.24h PO 02/26/25 21:59 0.4 mg QHS MARISA Administration Vancomycin HCl 1 each 02/27/24 21:13 Vancomycin - Pharmacy Dosing 1 Each Miscell IV ONCE PRN ZZ.Pharmacy Consult Protocol A&P - Hospitalist Assessment/Plan (1) Arm mass: Plan: ? Ultrasound results mentioned above ? CT scan of right elbow with contrast ordered, MRI of elbow ordered as well as x-ray. ? Patient had slight leukocytosis at 14.7, does not appear to have the characteristic of a typical abscess ? Obtain blood cultures ? Patient's chest x-ray was normal from [facility] ? Start vancomycin after blood cultures were obtained ? General surgery consulted and referred the case to orthopedic surgery ? Diet today, n.p.o. at midnight (2) BPH (benign prostatic hyperplasia): Plan: ? Continue home medications tamsulosin and finasteride Plan ? DVT prophylax with SCDs ? Regular diet, n.p.o. midnight ? Full code Documented By: Antony Thompson DO 02/28/24 1535 Signed By: <Electronically signed by Antony Thompson DO> 02/28/24 1537 [facility] Work Phone: 1(363) 325-820407-30-2024 Consult note Author Ata Celestin [facility] February 28, 2024 10:37am Note Date/Time February 28, 2024 10:2 2am [facility] [address] [place] [address] Orthopedic Consult Note Signed Patient: Mily Guadalupe MR#: [id number] : 1955 Acct:[id number] Age/Sex: 68 / M Adm Date: 4 Loc: Room: [address] [place] [address] Type: ADM IN Attending Dr: Antony Thompson DO Copies to: NON STAFF DO Antony Ruiz DO~ History of Present Illness HPI Consult date: 02/28/2024 Requesting provider: Antony Thompson DO History of present illness: Mumtaz is a [id number] 68-year-old male who presents to [facility] with a right medial brachial mass. He states that over 2 weeks ago he was working on [employer] whenever he started to feel soreness in that area. He does admit to a scratch on the dorsal aspect of his forearm which healed nicely around the same time. The inner elbow became more swollen and red and painful and he was started on antibiotics by his PCP. Antibiotics did not show any improvement andhe was sent to [facility] emergency department for evaluation. An ultrasound was performed at [facility] which showed there was a hypoechoic avascular collection adjacent to the basilic vein in the medial aspect of his distal biceps. This measured 1.5 cm. There is also note of a complex mass in the right axilla measuring 3.8 cm. He was sent to [facility] for further evaluation after that. General surgery was consulted and deferred further treatment to orthopedic surgery. He admits to pain in the area. Denies any numbness or tingling. Has had some possible chills but none currently. Denies any axillary pain. Can move elbow and shoulder without issue. REPLACED BY [facility] Medical History Sleep apnea treated with continuous positive airway pressure (CPAP) History of colon polyps Acid reflux Enlarged prostate Surgical History Hx of tonsillectomy History of colonoscopy with polypectomy Family History Grandparent Prostate cancer Father Esophageal cancer Leukemia Smoker Mother Perforated bowel after colonoscopy Social History Smoking Status: Never smoker Substance Use Type: None Allergies & Medications Medications and Allergies Allergies No Known Allergies Allergy (Verified 02/26/24 09:08) Home Medications tamsulosin 0.4 mg capsule (Flomax) 0.4 mg PO QHS 06/07/18 [History Confirmed 02/26/24] famotidine 20 mg tablet 20 mg PO DAILY 12/31/22 [History Confirmed 02/26/24] finasteride 5 mg tablet 5 mg PO DAILY 12/31/22 [History Confirmed 02/26/24] cephalexin 500 mg capsule 500 mg PO QID 02/26/24 [History Confirmed 02/26/24] ibuprofen 125 mg-acetaminophen 250 mg tablet 1 tab PO Q6HR PRN 02/26/24 [History Confirmed 02/26/24] sulfamethoxazole 800 mg-trimethoprim 160 mg tablet (Bactrim DS) 1 tab PO BID 10 days #20 tabs 02/26/24 [Rx Confirmed 02/26/24] Exam Physical Exam Vital Signs: Temp Pulse Resp BP Pulse Ox O2 Del Method FiO2 97.7 F 71 17 128/82 99 BiPAP 30 02/28/24 03:20 02/28/24 07:50 02/28/24 07:50 02/28/24 07:50 02/28/24 07:50 02/28/24 07:50 02/27/24 23:45 Narrative: Patient seen evaluated on regular nursing floor. He is resting in supine position. He is alert and oriented pleasant conversation. No acute distress. is at bedside. Right elbow is evaluated. Upon inspection there is a golf ball sized area of redness and induration on the medial aspect of the distal brachium proximal to the medial epicondyle. This has marker outlining area of induration. This is quite firm and tender to palpation. There is no fluctuance felt. The remainderof the brachium is soft and nontender and axilla is nontender. Forearm is soft and compressible without issue. His range of motion of the elbow and shoulder are intact and pretty much full actively. Right upper extremity is neurovascular intact with warm well-perfused hand palpable radial pulse. Results - Orthopedics Lab Results 02/28/24 06:13 02/28/24 06:13 Labs: Laboratory Results - Last 48 hrs. 02/28/24 06:13: Corrected WBC 14.5 H, Uncorrected WBC Count 14.5 H, RBC 4.79, Hgb 14.4, Hct 42.4, MCV 88.4, MCH 30.1, MCHC 34.0, RDW 13.5, Plt Count 191, MPV 6.9, Neut % (Auto) 64.2, Lymph % (Auto) 25.2, [place] % (Auto) 8.9, Eos % (Auto) 1.4, Baso % (Auto) 0.3, Nucleat RBC Rel Count 0.1, Neut # (Auto) 9.3 H, Lymph # (Auto) 3.7, [place] # (Auto) 1.3 H, Eos # (Auto) 0.2, Baso # (Auto) 0.0, PT 13.1 H,INR 1.1, APTT 31.3, PHA Creatinine Clear 79.58, Sodium 140, Potassium 4.7, Chloride 105, Carbon Dioxide 28.4, Anion Gap 11.3, BUN 13, Creatinine 1.07, Est GFR (CKD-EPI) > 60.0, Glucose 92, Calcium 8.4 L, Magnesium 2.0, Total Bilirubin 0.7, AST 13, ALT 13, Alkaline Phosphatase 46, Total Protein 5.6 L, Albumin 3.4 L, Globulin 2.2, Albumin/Globulin Ratio 1.5 H & H 02/28/24 Range/Units 06:13 Hgb 14.4 (13.0-17.0) g/dL Hct 42.4 (38.8-50.0) % Coagulation 02/28/24 Range/Units 06:13 INR 1.1 All other labs are normal. Imaging & Diagnostic Results Imaging/Diagnostics: CT scan of the arm is reviewed. This shows a soft tissue collection in the medial aspect of the brachium with fat stranding and cellulitic changes surrounding. No absolute discerning fluid collection or abscess is seen. Assessment/Plan (1) Arm mass: Code(s): R22.30 - Localized swelling, mass and lump, unspecified upper limb Plan Mumtaz presents with right medial brachial mass. At this juncture we have discussedthe findings and diagnosis as well as personally reviewed appropriate imaging and performed interpretation of related testing and examination with the patientand his at bedside today. Prior medical notes from Dr. Myers and hospitalist service and history have been reviewed. At this time I would recommend MRI of the breast tissues. My primary differential at this moment is a necrotic lymph node as he does admit to a scratch on the dorsal aspect of his forearm around the same time this all started but that healed up nicely. MRI will also evaluate axillary lymph nodes. We will plan for n.p.o. after midnight for possible surgical intervention tomorrow. Okay for diet Continue antibiotics N.p.o. after midnight MRI today along with elbow x-rays Pain control The patient has been involved in our cooperative treatment plan and agrees to move forward with treatment at this time. Documented By: Ata Celestin DO 02/28/24 1017 Signed By: <Electronically signed by Ata Celestin DO> 02/28/24 1037 [facility] Work Phone: 1(413) 174-780607-30-2024 Progress note Author Britton Myers [facility] February 28, 2024 8:56am Note Date/Time February 28, 2024 8:56 am [facility] [address] [place] [address] Progress Note Signed Patient: Mily Guadalupe MR#: [id number] : 1955 Acct:[id number] Age/Sex: 68 / M Adm Date: 4 Loc: 4N Room: 4P9088-2 Type: ADM IN Attending Dr: Antony Thompson DO Copies to: ~ Date of Service: 02/28/2024 Progress Narrative Note PROGRESS NOTE Progress Note: Saw patient at CT, he had been putting a great deal of pressure on his inner right elbow and then several days later this area of firmness and redness developed which has gotten worse despite oral antibiotics and steroids. No fevers chills or sweats there. He had had no break in the skin. He has not noticed any lesion in his axilla. This area of firmness and induration is at his inner right distal upper arm going to the elbow and the antecubital fossa. There is no palpable axillary mass lesion or palpable lymph node with patient's thin body habitus. With location and history of this this elbow issue I defer to orthopedic specialty for management. If needed please contact me for reevaluation or otherissues Documented By: Britton Myers DO 02/28/24 0853 Signed By: <Electronically signed by DO Britton Myers> 02/28/24 0856 [facility] Work Phone: 1(876) 877-476807-29-2024 History and physical note Author Antony Thompson [facility] February 27, 2024 9:06pm Note Date/Time February 27, 2024 8:58 pm [facility] [address] [place] [address] Hospitalist H&P Signed Patient: Mily Guadalupe MR#: [id number] : 1955 Acct:[id number] Age/Sex: 68 / M Adm Date: 4 Loc: 4 Room: 0E4575-8 Type: ADM IN Attending Dr: Antony Thompson DO Copies to: NON STAFF Antony Thompson DO~ HPI DATE OF EXAMINATION: 02/27/24 CHIEF COMPLAINT: arm pain HISTORY OF PRESENT ILLNESS: Mr Guadalupe is a 68-year-old man with a past medical history of BPH who presented to our hospital as a transfer from outside facility with a chief complaint of right arm pain and swelling. 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 Shortly after that he developed some redness on the medial aspect of his right distal biceps short left that was followed by swelling. He did seehis PCP and per the fill history he was started on an course of cephalexin, thisdid not appear to help his redness and swelling much, he was also started on a Medrol Dosepak a couple of days after starting the antibiotic, he felt that thisdid help decrease his swelling though the mass is still there and so is the redness. There was some consideration for starting a second antibiotic though at this point it was deferred and he was referred to the emergency room. He does endorse 1 episode of night sweats with this. He arrived at [facility] ER earlier this afternoon where an ultrasound of his right arm was obtained, ultrasound was negative for DVT or superficial thrombus. There was a hypoechoicavascular collection adjacent to the basilic vein in the medial aspect of his distal biceps. This measured 1.5 cm. There is also note of a complex mass in the right axilla measuring 3.8 cm. He was subsequently transferred to [facility] for further evaluation and treatment. Blood work from [facility] emergency room was notable for a white blood cell countof 14.7, hemoglobin of 15.5, platelets 210. His BNP has sodium of 136, potassium 4.2, chloride 102, carbon oxide 28.4, BUN 11 and creatinine 1.1. Calcium 8.7, remainder of hepatic function panel was normal. Review of Systems Review of Systems All other systems reviewed & are negative unless noted below or in HPI REPLACED BY [facility] Medical History Sleep apnea treated with continuous positive airway pressure (CPAP) History of colon polyps Acid reflux Enlarged prostate Surgical History Hx of tonsillectomy History of colonoscopy with polypectomy Family History Grandparent Prostate cancer Father Esophageal cancer Leukemia Smoker Mother Perforated bowel after colonoscopy Social History Smoking Status: Never smoker Substance Use Type: None Meds Medications and Allergies Allergies No Known Allergies Allergy (Verified 02/26/24 09:08) Home Medications tamsulosin 0.4 mg capsule (Flomax) 0.4 mg PO QHS 06/07/18 [History Confirmed 02/26/24] famotidine 20 mg tablet 20 mg PO DAILY 12/31/22 [History Confirmed 02/26/24] finasteride 5 mg tablet 5 mg PO DAILY 12/31/22 [History Confirmed 02/26/24] cephalexin 500 mg capsule 500 mg PO QID 02/26/24 [History Confirmed 02/26/24] ibuprofen 125 mg-acetaminophen 250 mg tablet 1 tab PO Q6HR PRN 02/26/24 [History Confirmed 02/26/24] sulfamethoxazole 800 mg-trimethoprim 160 mg tablet (Bactrim DS) 1 tab PO BID 10 days #20 tabs 02/26/24 [Rx Confirmed 02/26/24] Exam Physical Exam Vital Signs: Temp Pulse Resp BP Pulse Ox O2 Del Method 98.4 F 81 12 132/78 95 Room Air 02/27/24 19:28 02/27/24 19:28 02/27/24 19:28 02/27/24 19:28 02/27/24 19:02/27/24 20:45 Narrative: General: Awake alert, no acute distress HEENT: head atraumatic, normocephalic, moist mucous membranes Neck: supple no masses, no lymphadenopathy CVS: regular rate and rhythm, no murmurs or gallops Respiratory: clear to auscultation bilaterally, no wheezing or crackles, symmetric expansion GI: soft, nondistended, nontender, positive bowel sounds with no organomegaly Extremity: moves all extremities, no restrictions of movements, no calf tenderness, right arm has a palpable hard mass on the medial portion of distal bicep measuring roughly 3 x 5 cm with surrounding erythema. Erythema is marked with skin marker. Neuro: AOx3, CN II-VII intact. Moves all extremities in all planes of motion. Skin: dry, intact no rashes or lesions Assessment & Plan Assessment/Plan (1) Arm mass: Plan: ? Ultrasound results mentioned above ? CT scan of right elbow with contrast ordered ? Patient had slight leukocytosis at 14.7, does not appear to have the characteristic of a typical abscess ? Obtain blood cultures ?Patient's chest x-ray was normal from [place] ? Start vancomycin after blood cultures were obtained ? General surgery consulted ? Patient made n.p.o. at midnight for possible procedure tomorrow (2) BPH (benign prostatic hyperplasia): Plan: ? Continue home medications tamsulosin and finasteride Plan ? DVT prophylax with SCDs ? Regular diet, n.p.o. midnight ? Full code IP vs OBS Justification Based on differential dx, clinical care plan, and risk of adverse events, if untreated, in my clinical judgement this patient requires an acute care setting as: INPATIENT because of an expectation of an over 2 midnight stay. Estimated length of stay (# of days): 3 Documented By: Antony Thompson DO 02/27/242053 Signed By: <Electronically signed by Antony Thompson DO> 02/27/242105 [facility] Work Phone: 1(312) 929-814004-30-2024 Hospital Discharge instructions Patient Education 11/29/2023 08:42:05 Prostate Cancer Screening Prostate Cancer Screening Prostate cancer screening is testing that is done to check for the presence of prostate cancer in men. The prostate gland is a walnut-sized gland that is located below the bladder and in front of therectum in males. The function of the prostate is to add fluid to semen during ejaculation. Prostatecancer is one of the most common types of cancer in men. Who should have prostate cancer screening? Screening recommendations vary based on age and other risk factors, as well as between the professional organizations who make the recommendations. In general, screening is recommended if: You are age 50 to 70 and have an average risk for prostate cancer. You should talk with your healthcare provider about your need for screening and how often screening should be done. Because most prostate cancers are slow growing and will not cause , screening in this age group is generally reserved for men who have a 10- to 15-year life expectancy. You are younger than age 50, and you have these risk factors: ?Having a father, brother, or uncle who has been diagnosed with prostate cancer. The risk is higherif your family member's cancer occurred at an early age or if you have multiple family members withprostate cancer at an early age. ?Being a male who is Black or is of [place] or sub-Saharan descent. In general, screening is not recommended if: You are younger than age 40. You are between the ages of 40 and 49 and you have no risk factors. You are 70 years of age or older. At this age, the risks that screening can cause are greater than the benefits that it may provide. If you are at high risk for prostate cancer, your health care provider may recommend that you have screenings more often or that you start screening at a younger age. How is screening for prostate cancer done? The recommended prostate cancer screening test is a blood test called the prostate-specific antigen(PSA) test. PSA is a protein that is made in the prostate. As you age, your prostate naturally produces more PSA. Abnormally high PSA levels may be caused by: Prostate cancer. An enlarged prostate that is not caused by cancer (benign prostatic hyperplasia, or BPH). This condition is very common in older men. A prostate gland infection (prostatitis) or urinary tract infection. Certain medicines such as male hormones (like testosterone) or other medicines that raise testosterone levels. A rectal exam may be done as part of prostate cancer screening to help provide information about the size of your prostate gland. When a rectal exam is performed, it should be done after the PSA level is drawn to avoid any effect on the results. Depending on the PSA results, you may need more tests, such as: A physical exam to check the size of your prostate gland, if not done as part of screening. Blood and imaging tests. A procedure to remove tissue samples from your prostate gland for testing (biopsy). This is the only way to know for certain if you have prostate cancer. What are the benefits of prostate cancer screening? Screening can help to identify cancer at an early stage, before symptoms start and when the cancer can be treated more easily. There is a small chance that screening may lower your risk of dying from prostate cancer. The chance is small because prostate cancer is a slow-growing cancer, and most men with prostate cancer from a different cause. What are the risks of prostate cancer screening? The main risk of prostate cancer screening is diagnosing and treating prostate cancer that would never have caused any symptoms or problems. This is called overdiagnosisand overtreatment. PSA screening cannot tell you if your PSA is high due to cancer or a different cause. A prostate biopsy is the only procedure to diagnose prostate cancer. Even the results of a biopsy may not tell you if your cancer needs to be treated. Slow-growing prostate cancer may not need any treatment other than monitoring, so diagnosing and treating it may cause unnecessary stress or other side effects. Questions to ask your health care provider When should I start prostate cancer screening? What is my risk for prostate cancer? How often do I need screening? What type of screening tests do I need? How do I get my test results? What do my results mean? Do I need treatment? Where to find more information The [place] [employer]: www.cancer.org [employer] [employer]: www.auanet.org Contact a health care provider if: You have difficulty urinating. You have pain when you urinate or ejaculate. You have blood in your urine or semen. You have pain in your back or in the area of your prostate. Summary Prostate cancer is a common type of cancer in men. The prostate gland is located below the bladder and in front of the rectum. This gland adds fluid to semen during ejaculation. Prostate cancer screening may identify cancer at an early stage, when the cancer can be treated more easily and is less likely to have spread to other areas of the body. The prostate-specific antigen (PSA) test is the recommended screening test for prostate cancer, butit has associated risks. Discuss the risks and benefits of prostate cancer screening with your health care provider. If you are age 70 or older, the risks that screening can cause are greater than the benefits that it may provide. This information is not intended to replace advice given to you by your health care provider. Make sure you discuss any questions you have with your health care provider. Document Revised: 01/11/2022 Document Reviewed: 01/11/2022 [email or web address] Patient Education 2022 [employer]. 11/29/2023 08:42:03 Benign Prostatic Hyperplasia Benign Prostatic Hyperplasia Benign prostatic hyperplasia (BPH) is an enlarged prostate gland that is caused by the normal agingprocess. The prostate may get bigger as a man gets older. The condition is not caused by cancer. The prostate is a walnut-sized gland that is involved in the production of semen. It is located in front of the rectum and below the bladder. The bladder stores urine. The urethra carries stored urine ou t of the body. An enlarged prostate can press on the urethra. This can make it harder to pass urine. The buildup of urine in the bladder can cause infection. Back pressure and infection may progress to bladder damage and kidney (renal) failure. What are the causes? This condition is part of the normal aging process. However, not all men develop problems from thiscondition. If the prostate enlarges away from the urethra, urine flow will not be blocked. If it enlarges toward the urethra and compresses it, there will be problems passing urine. What increases the risk? This condition is more likely to develop in men older than 50 years. What are the signs or symptoms? Symptoms of this condition include: Getting up often during the night to urinate. Needing to urinate frequently during the day. Difficulty starting urine flow. Decrease in size and strength of your urine stream. Leaking (dribbling) after urinating. Inability to pass urine. This needs immediate treatment. Inability to completely empty your bladder. Pain when you pass urine. This is more common if there is also an infection. Urinary tract infection (UTI). How is this diagnosed? This condition is diagnosed based on your medical history, a physical exam, and your symptoms. Tests will also be done, such as: A post-void bladder scan. This measures any amount of urine that may remain in your bladder after you finish urinating. A digital rectal exam. In a rectal exam, your health care provider checks your prostate by putting a lubricated, gloved finger into your rectum to feel the back of your prostate gland. This exam detects the size of your gland and any abnormal lumps or growths. An exam of your urine (urinalysis). A prostate specific antigen (PSA) screening. This is a blood test used to screen for prostate cancer. An ultrasound. This test uses sound waves to electronically produce a picture of your prostate gland. Your health care provider may refer you to a specialist in kidney and prostate diseases (urologist). How is this treated? Once symptoms begin, your health care provider will monitor your condition (active surveillance or watchful waiting). Treatment for this condition will depend on the severity of your condition. Treatment may include: Observation and yearly exams. This may be the only treatment needed if your condition and symptoms are mild. Medicines to relieve your symptoms, including: ?Medicines to shrink the prostate. ?Medicines to relax the muscle of the prostate. Surgery in severe cases. Surgery may include: ?Prostatectomy. In this procedure, the prostate tissue is removed completely through an open incision or with a laparoscope or robotics. ?Transurethral resection of the prostate (TURP). In this procedure, a tool is inserted through the opening at the tip of the penis (urethra). It is used to cut away tissue of the inner core of the prostate. The pieces are removed through the same opening of the penis. This removes the blockage. ?Transurethral incision (TUIP). In this procedure, small cuts are made in the prostate. This lessens the prostate's pressure on the urethra. ?Transurethral microwave thermotherapy (TUMT). This procedure uses microwaves to create heat. The heat destroys and removes a small amount of prostate tissue. ?Transurethral needle ablation (TUNA). This procedure uses radio frequencies to destroy and remove a small amount of prostate tissue. ?Interstitial laser coagulation (ILC). This procedure uses a laser to destroy and remove a small amount of prostate tissue. ?Transurethral electrovaporization (TUVP). This procedure uses electrodes to destroy and remove a small amount of prostate tissue. ?Prostatic urethral lift. This procedure inserts an implant to push the lobes of the prostate away from the urethra. Follow these instructions at home: Take osfl-fhn-tfiemeo and prescription medicines only as told by your health care provider. Monitor your symptoms for any changes. Contact your health care provider with any changes. Avoid drinking large amounts of liquid before going to bed or out in public. Avoid or reduce how much caffeine or alcohol you drink. Give yourself time when you urinate. Keep all follow-up visits. This is important. Contact a health care provider if: You have unexplained back pain. Your symptoms do not get better with treatment. You develop side effects from the medicine you are taking. Your urine becomes very dark or has a bad smell. Your lower abdomen becomes distended and you have trouble passing urine. Get help right away if: You have a fever or chills. You suddenly cannot urinate. You feel light-headed or very dizzy, or you faint. There are large amounts of blood or clots in your urine. Your urinary problems become hard to manage. You develop moderate to severe low back or flank pain. The flank is the side of your body between the ribs and the hip. These symptoms may be an emergency. Get help right away. Call 911. Do not wait to see if the symptoms will go away. Do not drive yourself to the hospital. Summary Benign prostatic hyperplasia (BPH) is an enlarged prostate that is caused by the normal aging process. It is not caused by cancer. An enlarged prostate can press on the urethra. This can make it hard to pass urine. This condition is more likely to develop in men older than 50 years. Get help right away if you suddenly cannot urinate. This information is not intended to replace advice given to you by your health care provider. Make sure you discuss any questions you have with your health care provider. Document Revised: 02/03/2022 Document Reviewed: 02/03/2022 [email or web address] Patient Education 2022 [employer]. 11/29/2023 08:41:58 Erectile Dysfunction Erectile Dysfunction Erectile dysfunction (ED) is the inability to get or keep an erection in order to have sexual intercourse. ED is considered a symptom of an underlying disorder and is not considered a disease. ED mayinclude: Inability to get an erection. Lack of enough hardness of the erection to allow penetration. Loss of erection before sex is finished. What are the causes? This condition may be caused by: Physical causes, such as: ?Artery problems. This may include heart disease, high blood pressure, atherosclerosis, and diabetes. ?Hormonal problems, such as low testosterone. ?Obesity. ?Nerve problems. This may include back or pelvic injuries, multiple sclerosis, Parkinson's disease,spinal cord injury, and stroke. Certain medicines, such as: ?Pain relievers. ?Antidepressants. ?Blood pressure medicines and water pills (diuretics). ?Cancer medicines. ?Antihistamines. ?Muscle relaxants. Lifestyle factors, such as: ?Use of drugs such as marijuana, cocaine, or opioids. ?Excessive use of alcohol. ?Smoking. ?Lack of physical activity or exercise. Psychological causes, such as: ?Anxiety or stress. ?Sadness or depression. ?Exhaustion. ?Fear about sexual performance. ?Guilt. What are the signs or symptoms? Symptoms of this condition include: Inability to get an erection. Lack of enough hardness of the erection to allow penetration. Loss of the erection before sex is finished. Sometimes having normal erections, but with frequent unsatisfactory episodes. Low sexual satisfaction in either partner due to erection problems. A curved penis occurring with erection. The curve may cause pain, or the penis may be too curved toallow for intercourse. Never having nighttime or morning erections. How is this diagnosed? This condition is often diagnosed by: Performing a physical exam to find other diseases or specific problems with the penis. Asking you detailed questions about the problem. Doing tests, such as: ?Blood tests to check for diabetes mellitus or high cholesterol, or to measure hormone levels. ?Other tests to check for underlying health conditions. ?An ultrasound exam to check for scarring. ?A test to check blood flow to the penis. Doing a sleep study at home to measure nighttime erections. How is this treated? This condition may be treated by: Medicines, such as: ?Medicine taken by mouth to help you achieve an erection (oral medicine). ?Hormone replacement therapy to replace low testosterone levels. ?Medicine that is injected into the penis. Your health care provider may instruct you how to give yourself these injections at home. ?Medicine that is delivered with a short applicator tube. The tube is inserted into the opening at the tip of the penis, which is the opening of the urethra. A tiny pellet of medicine is put in the urethra. The pellet dissolves and enhances erectile function. This is also called MUSE (medicated urethral system for erections) therapy. Vacuum pump. This is a pump with a ring on it. The pump and ring are placed on the penis and used to create pressure that helps the penis become erect. Penile implant surgery. In this procedure, you may receive: ?An inflatable implant. This consists of cylinders, a pump, and a reservoir. The cylinders can be inflated with a fluid that helps to create an erection, and they can be deflated after intercourse. ?A semi-rigid implant. This consists of two silicone rubber rods. The rods provide some rigidity. They are also flexible, so the penis can both curve downward in its normal position and become straight for sexual intercourse. Blood vessel surgery to improve blood flow to the penis. During this procedure, a blood vessel froma different part of the body is placed into the penis to allow blood to flow around (bypass) damaged or blocked blood vessels. Lifestyle changes, such as exercising more, losing weight, and quitting smoking. Follow these instructions at home: Medicines Take ezsk-fjw-hsnzwcs and prescription medicines only as told by your health care provider. Do not increase the dosage without first discussing it with your health care provider. If you are using self-injections, do injections as directed by your health care provider. Make sureyou avoid any veins that are on the surface of the penis. After giving an injection, apply pressureto the injection site for 5 minutes. Talk to your health care provider about how to prevent headaches while taking ED medicines. These medicines may cause a sudden headache due to the increase in blood flow in your body. General instructions Exercise regularly, as directed by your health care provider. Work with your health care provider to lose weight, if needed. Do not use any products that contain nicotine or tobacco. These products include cigarettes, chewing tobacco, and vaping devices, such as e-cigarettes. If you need help quitting, ask your health careprovider. Before using a vacuum pump, read the instructions that come with the pump and discuss any questionswith your health care provider. Keep all follow-up visits. This is important. Contact a health care provider if: You feel nauseous. You are vomiting. You get sudden headaches while taking ED medicines. You have any concerns about your sexual health. Get help right away if: You are taking oral or injectable medicines and you have an erection that lasts longer than 4 hours. If your health care provider is unavailable, go to the nearest emergency room for evaluation. An erection that lasts much longer than 4 hours can result in permanent damage to your penis. You have severe pain in your groin or abdomen. You develop redness or severe swelling of your penis. You have redness spreading at your groin or lower abdomen. You are unable to urinate. You experience chest pain or a rapid heartbeat (palpitations) after taking oral medicines. These symptoms may represent a serious problem that is an emergency. Do not wait to see if the symptoms will go away. Get medical help right away. Call your local emergency services (911 in the [place] Do not drive yourself to the hospital. Summary Erectile dysfunction (ED) is the inability to get or keep an erection during sexual intercourse. This condition is diagnosed based on a physical exam, your symptoms, and tests to determine the cause. Treatment varies depending on the cause and may include medicines, hormone therapy, surgery, or a vacuum pump. You may need follow-up visits to make sure that you are using your medicines or devices correctly. Get help right away if you are taking or injecting medicines and you have an erection that lasts longer than 4 hours. This information is not intended to replace advice given to you by your health care provider. Make sure you discuss any questions you have with your health care provider. Document Revised: 10/14/2021 Document Reviewed: 10/14/2021 [employer] Patient Education 2022 [email or web address] Follow Up Care 11/24/2022 10:13:29 With:Octavio EATON, SCOTT Tello, URO Address: When: Unknown Comments:pending MRI prostate [facility] 02-05-2024 Evaluation note* Encounter Date Diagnosis Assessment Notes Treatment Notes Treatment Clinical Notes Sep, Impacted cerumen of right ear (ICD-10 - H61.21) Avoid using q-tips in the ears. You may use over the counter debrox as needed for cerumen buid up in the ear,. Follow up with your Primary care doctor as scheduled. Patient is a 67-year-old male who came to urgent care for complaints of an impacted wax in the right ear. Patient states he was seen at his primary care office twice for the impacted cerumen then the job checker. Patient states he was sent here to have the impacted cerumen cleaned out from his ear. The right ear was rinsed with warm water and impacted cerumen was cleared. Right ear without erythema or bulging TM, no signs of infection present. Hearing grossly intact. Patient is to avoid using Q-tips in the ears, he was instructed to use axqc-kwq-clytfzl Debrox as instructed on the box as needed for impacted cerumen. Patient was told to follow-up with his primary care provider if symptoms persist. [place] [facility] Patient Education 11/24/2022 09:46:19 Benign Prostatic Hyperplasia Benign Prostatic Hyperplasia Benign prostatic hyperplasia (BPH) is an enlarged prostate gland that is caused by the normal agingprocess. The prostate may get bigger as a man gets older. The condition is not caused by cancer. The prostate is a walnut-sized gland that is involved in the production of semen. It is located in front of the rectum and below the bladder. The bladder stores urine. The urethra carries stored urine ou t of the body. An enlarged prostate can press on the urethra. This can make it harder to pass urine. The buildup of urine in the bladder can cause infection. Back pressure and infection may progress to bladder damage and kidney (renal) failure. What are the causes? This condition is part of the normal aging process. However, not all men develop problems from thiscondition. If the prostate enlarges away from the urethra, urine flow will not be blocked. If it enlarges toward the urethra and compresses it, there will be problems passing urine. What increases the risk? This condition is more likely to develop in men older than 50 years. What are the signs or symptoms? Symptoms of this condition include: Getting up often during the night to urinate. Needing to urinate frequently during the day. Difficulty starting urine flow. Decrease in size and strength of your urine stream. Leaking (dribbling) after urinating. Inability to pass urine. This needs immediate treatment. Inability to completely empty your bladder. Pain when you pass urine. This is more common if there is also an infection. Urinary tract infection (UTI). How is this diagnosed? This condition is diagnosed based on your medical history, a physical exam, and your symptoms. Tests will also be done, such as: A post-void bladder scan. This measures any amount of urine that may remain in your bladder after you finish urinating. A digital rectal exam. In a rectal exam, your health care provider checks your prostate by putting a lubricated, gloved finger into your rectum to feel the back of your prostate gland. This exam detects the size of your gland and any abnormal lumps or growths. An exam of your urine (urinalysis). A prostate specific antigen (PSA) screening. This is a blood test used to screen for prostate cancer. An ultrasound. This test uses sound waves to electronically produce a picture of your prostate gland. Your health care provider may refer you to a specialist in kidney and prostate diseases (urologist). How is this treated? Once symptoms begin, your health care provider will monitor your condition (active surveillance or watchful waiting). Treatment for this condition will depend on the severity of your condition. Treatment may include: Observation and yearly exams. This may be the only treatment needed if your condition and symptoms are mild. Medicines to relieve your symptoms, including: ?Medicines to shrink the prostate. ?Medicines to relax the muscle of the prostate. Surgery in severe cases. Surgery may include: ?Prostatectomy. In this procedure, the prostate tissue is removed completely through an open incision or with a laparoscope or robotics. ?Transurethral resection of the prostate (TURP). In this procedure, a tool is inserted through the opening at the tip of the penis (urethra). It is used to cut away tissue of the inner core of the prostate. The pieces are removed through the same opening of the penis. This removes the blockage. ?Transurethral incision (TUIP). In this procedure, small cuts are made in the prostate. This lessens the prostate's pressure on the urethra. ?Transurethral microwave thermotherapy (TUMT). This procedure uses microwaves to create heat. The heat destroys and removes a small amount of prostate tissue. ?Transurethral needle ablation (TUNA). This procedure uses radio frequencies to destroy and remove a small amount of prostate tissue. ?Interstitial laser coagulation (ILC). This procedure uses a laser to destroy and remove a small amount of prostate tissue. ?Transurethral electrovaporization (TUVP). This procedure uses electrodes to destroy and remove a small amount of prostate tissue. ?Prostatic urethral lift. This procedure inserts an implant to push the lobes of the prostate away from the urethra. Follow these instructions at home: Take irex-ovu-tkyzgsm and prescription medicines only as told by your health care provider. Monitor your symptoms for any changes. Contact your health care provider with any changes. Avoid drinking large amounts of liquid before going to bed or out in public. Avoid or reduce how much caffeine or alcohol you drink. Give yourself time when you urinate. Keep all follow-up visits. This is important. Contact a health care provider if: You have unexplained back pain. Your symptoms do not get better with treatment. You develop side effects from the medicine you are taking. Your urine becomes very dark or has a bad smell. Your lower abdomen becomes distended and you have trouble passing urine. Get help right away if: You have a fever or chills. You suddenly cannot urinate. You feel light-headed or very dizzy, or you faint. There are large amounts of blood or clots in your urine. Your urinary problems become hard to manage. You develop moderate to severe low back or flank pain. The flank is the side of your body between the ribs and the hip. These symptoms may be an emergency. Get help right away. Call 911. Do not wait to see if the symptoms will go away. Do not drive yourself to the hospital. Summary Benign prostatic hyperplasia (BPH) is an enlarged prostate that is caused by the normal aging process. It is not caused by cancer. An enlarged prostate can press on the urethra. This can make it hard to pass urine. This condition is more likely to develop in men older than 50 years. Get help right away if you suddenly cannot urinate. This information is not intended to replace advice given to you by your health care provider. Make sure you discuss any questions you have with your health care provider. Document Revised: 02/03/2022 Document Reviewed: 02/03/2022 [email or web address] Patient Education 2022 [employer]. Follow Up Care 10/06/2022 08:16:20 With:Kassidy Cunningham MD, URL, [facility] Address: [address] [place] [phone] When:11/25/2023 Comments:PSA [facility] 05-02-2022 Hospital Discharge instructions Patient Education 11/30/2021 08:20:56 Benign Prostatic Hyperplasia Benign Prostatic Hyperplasia Benign prostatic hyperplasia (BPH) is an enlarged prostate gland that is caused by the normal agingprocess and not by cancer. The prostate is a walnut-sized gland that is involved in the production of semen. It is located in front of the rectum and below the bladder. The bladder stores urine and the urethra is the tube that carries the urine out of the body. The prostate may get bigger as a man gets older. An enlarged prostate can press on the urethra. This can make it harder to pass urine. The build-up of urine in the bladder can cause infection. Back pressure and infection may progress to bladder damage and kidney (renal) failure. What are the causes? This condition is part of a normal aging process. However, not all men develop problems from this condition. If the prostate enlarges away from the urethra, urine flow will not be blocked. If it enlarges toward the urethra and compresses it, there will be problems passing urine. What increases the risk? This condition is more likely to develop in men over the age of 50 years. What are the signs or symptoms? Symptoms of this condition include: Getting up often during the night to urinate. Needing to urinate frequently during the day. Difficulty starting urine flow. Decrease in size and strength of your urine stream. Leaking (dribbling) after urinating. Inability to pass urine. This needs immediate treatment. Inability to completely empty your bladder. Pain when you pass urine. This is more common if there is also an infection. Urinary tract infection (UTI). How is this diagnosed? This condition is diagnosed based on your medical history, a physical exam, and your symptoms. Tests will also be done, such as: A post-void bladder scan. This measures any amount of urine that may remain in your bladder after you finish urinating. A digital rectal exam. In a rectal exam, your health care provider checks your prostate by putting a lubricated, gloved finger into your rectum to feel the back of your prostate gland. This exam detects the size of your gland and any abnormal lumps or growths. An exam of your urine (urinalysis). A prostate specific antigen (PSA) screening. This is a blood test used to screen for prostate cancer. An ultrasound. This test uses sound waves to electronically produce a picture of your prostate gland. Your health care provider may refer you to a specialist in kidney and prostate diseases (urologist). How is this treated? Once symptoms begin, your health care provider will monitor your condition (active surveillance or watchful waiting). Treatment for this condition will depend on the severity of your condition. Treatment may include: Observation and yearly exams. This may be the only treatment needed if your condition and symptoms are mild. Medicines to relieve your symptoms, including: ?Medicines to shrink the prostate. ?Medicines to relax the muscle of the prostate. Surgery in severe cases. Surgery may include: ?Prostatectomy. In this procedure, the prostate tissue is removed completely through an open incision or with a laparoscope or robotics. ?Transurethral resection of the prostate (TURP). In this procedure, a tool is inserted through the opening at the tip of the penis (urethra). It is used to cut away tissue of the inner core of the prostate. The pieces are removed through the same opening of the penis. This removes the blockage. ?Transurethral incision (TUIP). In this procedure, small cuts are made in the prostate. This lessens the prostate's pressure on the urethra. ?Transurethral microwave thermotherapy (TUMT). This procedure uses microwaves to create heat. The heat destroys and removes a small amount of prostate tissue. ?Transurethral needle ablation (TUNA). This procedure uses radio frequencies to destroy and remove a small amount of prostate tissue. ?Interstitial laser coagulation (ILC). This procedure uses a laser to destroy and remove a small amount of prostate tissue. ?Transurethral electrovaporization (TUVP). This procedure uses electrodes to destroy and remove a small amount of prostate tissue. ?Prostatic urethral lift. This procedure inserts an implant to push the lobes of the prostate away from the urethra. Follow these instructions at home: Take [id number]-[id number] and prescription medicines only as told by your health care provider. Monitor your symptoms for any changes. Contact your health care provider with any changes. Avoid drinking large amounts of liquid before going to bed or out in public. Avoid or reduce how much caffeine or alcohol you drink. Give yourself time when you urinate. Keep all follow-up visits as told by your health care provider. This is important. Contact a health care provider if: You have unexplained back pain. Your symptoms do not get better with treatment. You develop side effects from the medicine you are taking. Your urine becomes very dark or has a bad smell. Your lower abdomen becomes distended and you have trouble passing your urine. Get help right away if: You have a fever or chills. You suddenly cannot urinate. You feel lightheaded, or very dizzy, or you faint. There are large amounts of blood or clots in the urine. Your urinary problems become hard to manage. You develop moderate to severe low back or flank pain. The flank is the side of your body between the ribs and the hip. These symptoms may represent a serious problem that is an emergency. Do not wait to see if the symptoms will go away. Get medical help right away. Call your local emergency services (911 in the [place] Do not drive yourself to the hospital. Summary Benign prostatic hyperplasia (BPH) is an enlarged prostate that is caused by the normal aging process and not by cancer. An enlarged prostate can press on the urethra. This can make it hard to pass urine. This condition is part of a normal aging process and is more likely to develop in men over the age of 50 years. Get help right away if you suddenly cannot urinate. This information is not intended to replace advice given to you by your health care provider. Make sure you discuss any questions you have with your health care provider. Document Released: 07/18/2006 Document Revised: 06/12/2019 Document Reviewed: 08/22/2017 [email or web address] Patient Education 2020 [employer]. Follow Up Care 06/03/2021 11:05:20 With:Keith Mena MD, Annette Vidal, URO Address: [facility] [address], [place] [address]- When:11/30/2022 Comments:with PSA [facility] Evaluation + Plan note Future Appointments Appointment Date:12/06/2022 08:15:00 AM Scheduled Provider:Annette Parker Jr., MD Location:[facility] Appointment Type:URO Office Visit Diagnostic Tests Pending * PSA Total 11/30/21 [facility] Evaluation + Plan note Future Appointments Appointment Date:11/30/2023 08:00:00 AM Scheduled Provider:Kassidy Cunningham MD Location:[facility] Appointment Type:URO Office Visit Diagnostic Tests Pending * PSA Total 11/24/22 [facility] evaluation + Plan note Future Appointments Appointment Date:10/24/2024 08:00:00 AM Scheduled Provider:Kassidy Cunningham MD Location:[facility] Appointment Type:URO Office Visit Diagnostic Tests Pending * PSA Total 04/24/24 [facility] evaluxsdxp noteNo assessment information available [facility] Work Phone: Evaluation note* Diagnosis Onset Date Resolution Status Cellulitis of right upper arm noneactive Abscess of arm, right acute Arm mass acute BPH (benign prostatic hyperplasia) acute [facility] Work Phone: Evaluation note* Diagnosis Onset Date Resolution Status Cellulitis of right upper arm noneactive Abscess of arm, right resolv ed Arm mass resolved Encounter for removal of sutures acute Other specified postprocedural states acute Cellulitis of right upper arm noneactive 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pilot point Encounter for coordination of complex care acute History of abscess of skin and subcutaneous tissue acute 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pilot [place] Encounter for coordination of complex care acute History of abscess of skin and subcutaneous tissue acute [facility] Work Phone: History and physical note Author Janene Crump [facility] December 31, 2022 9:46am Note Date/Time December 31, 2022 9:46a m [facility] [address] [place] [address] Gastroenterology H&P Signed Patient: Mily Guadalupe MR#: [id number] : 1955 Acct:[id number] Age/Sex: 67 / M Adm Date: 3 Loc: Room: Type: [facility] Attending Dr: Janene Crump MD Copies to: MD Fuad Miller MD~ Date of Service: 12/31/2022 HISTORY & PHYSICAL: Patient's history with special attention to the cardiovascular, pulmonary systems and the current problem was reviewed with the patient immediately prior to the procedure. Present medications and doses reviewed in the EMR. Allergies and pertinent laboratory tests were also reviewedat this time in the EMR. The physical examination, as below, was then performed. Indication, assessment and HPI: 67-year-old man with history of colonic polyps here for surveillance colonoscopy Family history of GI malignancy? No PHYSICAL EXAMINATION Mouth and Pharynx : Moist mucus membranes, normal dentition Cardiac: Regular rate, regular rhythm Pulmonary: Clear to auscultation bilaterally, no wheezing Neurological: Alert and oriented x3, no focal deficits noted Abdomen: Abdomen soft, non-tender REVIEW OF SYSTEMS Constitutional: Denies malaise, fevers Cardiovascular: Denies chest pain, palpitations Respiratory: Denies shortness of breath, wheezing Gastrointestinal: Per HPI Genitourinary: Denies dysuria, polyuria Musculoskeletal: Denies joint swelling, joint stiffness Neurological: Denies numbness, tingling Integumentary: Denies rashes, skin lesions Endocrine: Denies fatigue, weight loss Written informed consent obtained from the patient. Risks (including but not limited to perforation, infection, bloating, bleeding, need for emergent surgeryand loss of life), benefits and alternatives explained and questions answered. The patient verbalized understanding. Based on history patient is an appropriate candidate for the procedure. Janene Crump M.D. Documented By: Janene Crump MD 12/31/2245 Signed By: <Electronically signed by Janene Crump MD> 12/31/22945 [facility] Work Phone: History general Narrative - Reported* Type Description Date Surgical History polyp removal from sinus Surgical History tonsillectomy [place] Other Hospital course Narrative No data available for this section [facility] Discharge instructions Additional Instructions DISCHARGE INSTRUCTIONS FOR COLONOSCOPY WHAT TO EXPECT: - You may feel full, gassy or cramping after your procedure. In some cases, this may be from a few hours to a day. Walking may help relieve the discomfort. - If you have polyp(s) removed you may note some minor bloody discharge after your first bowel movements. - You should begin to recover from anesthesia within 1 hour of the procedure, however may feel groggy for the next 24 hours. DO's AND DON'Ts: - Call your doctor right away if you have a hard abdomen, severe pain, are passing lots of bright red blood or clots. - Call your doctor if you develop any rashes, hives or difficulty breathing. - Let your doctor know if you have not had a bowel movement by 3 days after your procedure. - If you take 81 mg aspirin for your heart it is safe to resume this medication. - If you take other blood thinner medications your doctor will instruct you when these can safely be resumed. - Do NOT drive for 24 hours. - Do NOT operate machinery such as power tools, lawn mowers, snow blowers, sewing machines, etc. for 24 hours. - Avoid alcoholic beverages and drugs for allergies, nerves, or sleep. - Do NOT stay alone. Do NOT leave your child unattended. - Do NOT make important personal or business decisions or sign any legal documents. - Eat solid foods and drink liquids in smaller amounts than usual until normal appetite returns. If you should experience an upset stomach, liquids high in sugar content (soda, Charles-Aid, non-acid juices) are recommended. - You can resume normal activities tomorrow. FOLLOW UP & RECOMMENDATIONS: -Notify the doctor if you have any problems. -Repeat colonoscopy in 3 years. -Follow up with PCP. -Office number [phone]. [facility] Work Phone: Progress note No data available for this section [facility] Chief Complaint and Reason for Visit Chief Complaint M79.672 Chief Complaint Hx of Colon Polyps Chief Complaint R97.20 Chief Complaint R97.20 Bump on right arm, 10 days already has antibiotics abscess right upper extremity abscess right upper extremity Reason for Visit Cellulitis of right upper arm Abscess of arm, right Arm mass BPH (benign prostatic hyperplasia) Chief Complaint Bump on right arm, 1 0 days already has antibiotics abscess right upper extremity abscess right upper extremity FU FROM HOSP RT ARM NEW Cellulitis, B cell lymphoma Cellulitis, B cell lymphoma Follow Up after PET B-Cell Lymphoma Reason for Visit Cellulitis of right upper arm Abscess of arm, right Arm mass Encounter for removal of sutures Other specified postprocedural states Cellulitis of right upper arm 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 History of abscess of skin and subcutaneous tissue 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 History of abscess of skin and subcutaneous tissue Chief Complaint Bump on right arm, 1 0 days already has antibiotics abscess right upper extremity abscess right upper extremity FU FROM HOSP RT ARM NEW Cellulitis, B cell lymphoma Cellulitis, B cell lymphoma Follow Up after PET B-Cell Lymphoma B-Cell Lymphoma Reason for Visit Cellulitis of right upper arm Abscess of arm, right Arm mass Encounter for removal of sutures Other specified postprocedural states Cellulitis of right upper arm 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 History of abscess of skin and subcutaneous tissue 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 History of abscess of skin and subcutaneous tissue Advance Directives No Advanced Directives Records Found Advance Directive Response Recorded Date/ Time Advance Directives nn May 29, 2018 2:23pm Advance Directive Response Recorded Date/ Time Advance Directives No December 29 3 8:50am Summary Purpose Family History No Family History Records Found Relationship Condition Age at Onset Recorded Date/T more[place] grandparent Malignant neoplasm of prostate Unknown father Malignant neoplasm of esophagus Unknown Leukemia Unknown Current smoker Unknown Not Specified Perforation of intestine Unknown Relationship Condition Age at Onset Recorded Date/T morena grandparent Malignant neoplasm of prostate Unknown father Malignant neoplasm of esophagus Unknown Leukemia Unknown Current smoker Unknown mother Perforation of intestine Unknown Relationship Condition Age at Onset Recorded Date/T morena grandparent Malignant neoplasm of prostate Unknown father Malignant neoplasm of esophagus Unknown Leukemia Unknown Current smoker Unknown mother Perforation of intestine Unknown brother Malignant neoplasm of prostate Unknown Coronary artery disease Unknown Additional Source Comments Care Teams (unrecognized sec tion and content) Team Status: Inactive Member Role Status Dates Fuad Sunshine MD Primary Care Provider Active Delbert Riggins DPM MS Attending Provider Active Team Status: Active Member Role Status Dates Fuad Sunshine MD Primary Care Provider Active Team Status: Inactive Member Role Status Dates Fuad Sunshine MD Primary Care Provider Active Janene Crump MD Attending Provider Active Team Status: Active Member Role Status Dates NON STAFF Primary Care Provider Active Team Status: Inactive Member Role Status Dates RHIANNON Knight Attending Provider Active Start: January 09, 2024 End: January 09, 2024 NON STAFF Primary Care Provider Active Start: January 09, 2024 End: January 09, 2024 Team Status: Active Member Role Status Dates Rashida Cabezas BUMBOATER-C Primary Care Provider Active Team Status: Inactive Member Role Status Dates NON STAFF Primary Care Provider Active Start: February 26, 2024 End: February 26, 2024 Carlotta Ferrer APRN Attending Provider Active Start: February 26, 2024 End: February 26, 2024 Team Status: Inactive Member Role Status Dates Antony Thompson DO Admit Provider, Atte nding Provider Active Start: February 27, 2024 End: March 01, 2024 Ata Celestin DO Other Provider Active Start : February 27, 2024 End: March 01, 2024 Rashida Cabezas NP-C Primary Care Provider Active Start: February 27, 2024 End: March 01, 2024 Team Status: Active Member Role Status Dates NON STAFF Primary Care Provider Active Start: February 28, 2024 Antony Thompson DO Admit Provider, Other Provider Act vikas Start: February 28, 2024 Ata Celestin DO Attending Provider, Other Provide r Active Start: February 28, 2024 Team Status: Inactive Member Role Status Dates Enoch Han DO Attending Provider Active St art: March 19, 2024 End: March 19, 2024 Rashida Cabezas BUMBOATER-C Primary Care Provider Active Start: March 19, 2024 End: March 19, 2024 Team Status: Inactive Member Role Status Dates Rashida Cabezas BUMBOATER-C Primary Care Provider Active Start: March 29, 2024 End: March 29, 2024 Maria Ines Hanley MD Attending Provider Active Start: March 29, 2024 End: March 29, 2024 Enoch Han DO Referring Provider Active St art: March 29, 2024 End: March 29, 2024 Team Status: Active Member Role Status Dates Rashida Cabezas BUMBOATER-C Primary Care Provider Active Start: April 12, 2024 Maria Ines Hanley MD Attending Provider Active Start: April 12, 2024 Enoch Han DO Referring Provider Active St art: April 12, 2024 Team Status: Inactive Member Role Status Dates Rashida Cabezas BUMBOATER-C Primary Care Provider Active Start: April 12, 2024 End: April 12, 2024 Maria Ines Hanley MD Attending Provider Active Start: April 12, 2024 End: April 12, 2024 Team Status: Inactive Member Role Status Dates Rashida Cabezas BUMBOATER-C Primary Care Provider Active Start: April 17, 2024 End: April 17, 2024 Jered Gomes MD Attending Provider Active Sta rt: April 17, 2024 End: April 17, 2024 Team Status: Inactive Member Role Status Dates Rashida Cabezas BUMBOATER-C Primary Care Provider Active Start: April 20, 2024 End: April 20, 2024 Jered Gomes MD Attending Provider Active Sta rt: April 20, 2024 End: April 20, 2024 Goals (unrecognized section and content) Goals may be documented in a n alternate section (unrecognized sect ion and content) No Status Records FoundNo Status Records FoundNo Status Records FoundNo Status Records Found INFORMATION SOURCE (unrecogn ized section and content) DATE CREATED AUTHOR 10/05/2022 [facility] DATE CREATED AUTHOR AUTHOR'S ORGANIZ ATION 04/26/2024 [facility] DATE CREATED AUTHOR AUTHOR'S ORGANIZ ATION 04/30/2024 [facility] DATE CREATED AUTHOR AUTHOR'S ORGANIZ ATION 05/12/2024 [facility] REASON FOR VISIT (unrecogniz ed section and content) RIGHT EAR PLUGGED FOR RECORDS PERTAINING TO PATIENTS WHO ARE OR HAVE BEEN ENROLLED IN A CHEMICAL DEPENDENCY/SUBSTANCEABUSE PROGRAM, SOME INFORMATION MAY BE OMITTED. This clinical summary was aggregated from multiple sources. Caution should be exercised in using it in the provision of clinical care. This summary normalizes information from multiple sources, and as a consequence, information in this document may materially change the coding, format and clinical context of patient data. In addition, data may be omitted in some cases. CLINICAL DECISIONS SHOULD BE BASED ON THE PRIMARY CLINICAL RECORDS. [employer] [facility]. provides no warranty or guarantee of the accuracy or completeness of information in this document.
== END 2024-05-17 08:29 | disposition home or self-care (01) ==
LOC: US 08:28
PROVIDERS: PCP Nurse Practitioner; Visit Provider Nurse Practitioner
DX: E04.1 Nontoxic single thyroid nodule (principal)
CPT/HCPCS: 76536

== ENCOUNTER 2024-06-11 07:36 | Day surgery (SDC) | payer MEDICARE, SELFPAY ==
--- OUTSIDE RECORDS SUMMARY | 2024-06-11 07:39 | XMS_ITS | CCD ---
Author Organization [facility] Care Team Providers Care Bartenders Name Role Phone FUAD SUNSHINE Primary Care Physician [phone] MD Fuad Sunshine Primary Care Provider KARISHMA Riggins Attending Provider [phone] OL[address] ., DR FUAD Stallworth Primary Care [...] SUNSHINE ., DR FUAD Stallworth Consulting Unavailable SUNSHINE, FUAD Stallworth Primary Care Physician [phone] MD Fuad Sunshine Primary Care Provider MD Janene Crump Attending Provider Ganga, Anjelica Unavailable Qiana Andre Primary Care Physician [facility] Marika Attending Provider NON STAFF Primary Care Provider UnavailDO Antony Veronica Admit Provider DO Antony Thompson Attending Provider [phone] DO Ata Celestin Other Provider [phone] Thai PRE CODER-C Qiana Mcdonough Primary Care Provider [phone] MD Maria Ines Hanley Attending Provider [phone] DO Enoch Han Referring Provider MD Jered Leon Attending Provider [phone] Kassidy Cunningham Attending Unavailable Orzech, Marika X Attending Unavailable Thai, Qiana Vidal Admitting Unavailable Thai, Qiana Vidal Attending Unavailable Thai, Qiana L Attending Unavailable MAIDA, ADRIANA Perez Attending Unavailable Thai, Qiana L Attending Unavailable Thai, Qiana L Attending Unavailable Thai, Qiana L Attending Unavailable Thai, Qiana Vidal Attending Unavailable Orzech, Marika X Attending Unavailable LEON V, EJRED Attending Unavailable LEON V, JERED Attending Unavailable Orzech, Marika Admitting Unavailable Orzech, Marika Attending Unavailable NON STAFF Primary Care Unavailable Thai, Qiana Mcdonough Primary Care Unavailable Enoch Han Referring Unavailable Maria Ines Hanley Admitting Unavailable Talon, Maria Ines Attending Unavailable ThompsonAntony Admitting Unavailable Antony Thompson Attending Unavailable Thai, Qiana Mcdonough Primary Care Unavailable Ata Celestin Consulting Unavailable Jered Leon Attending Unavailable Thai, Qiana Mcdonough Primary Care Unavailable Leon, Jered Admitting Unavailable LeonJered montalvo Attending Unavailable Thai, Qiana Mcdonough Primary Care Unavailable Jered Leon Admitting Unavailable THAI, QIANA Primary Care Unavailable CHARUSHANNAN Attending Unavailable MARIA INES HANLEY Referring Unavailable Charu Shannan EATON Unavailable Maria Ines Hanley MD Unavailable Qiana Andre Primary Care Provider Allergies Allergy Classification Reported Allergen(s) Allergy Type Date of Onset Reaction(s) Facility (1 source) No Known Medication Allergies; Translations: [No Known Medication Allergies] Propensity to adverse reactions (disorder) [facility] Repository Medications Current Medications Medication Drug Class(es) Dates Sig (Normalized) Sig (Original) acetaminophen 325 mg / HYDROcodone bitartrate 5 mg oral tablet (2 sources) Opioid Agonist Start: 04-20-2024 hydroCODone-acetam inophen 5-325 MG tablet 1 tablet. 04/20/2024 Active Start: 04-20-2024 take 1 tablet by tessa [...] Pepcid Active finasteride 5 mg oral tablet (11 sources) 5-alpha Reductase Inhibitor Start: 07-30-2021 take 1 tablet by mouth once daily finasteride 5 mg Tab 5 mg = 1 tab(s), Oral, Daily, # 30 tab(s), Refills(s) 11, Pharmacy: [facility] #[id number], 185, cm, 02/09/23 16:48:00 EDT, Height/Length Dosing, [...] Refills(s) 0 Start Date: 06/03/21 Status: Ordered [facility] 911 cpap machine supplies: head gear, mask, tubing and filters (2 sources) Start: 02-09-2023 [facility] cpap machine supplies: head gear, mask, tubing and filters [facility] cpap machine supplies: head gear, mask, tubing and filters, See Instructions, 1 EA, 1, [facility] cpap machine supplies: head gear, mask, tubing and filters, Supply Start Date: 02/09/23 Status: Ordered tamsulosin hydrochloride 0.4 mg oral capsule (12 sources) alpha-Adrenergic Brent Start: 06-07-2018 take 2 capsules by mouth once daily Flomax 0.4 mg Cap 0.8 mg = 2 cap(s), Oral, Daily, # 60 cap(s), Refills(s) 11, [facility]acy: [facility] #[id number], 185, cm, 02/09/23 16:48:00 EDT, Height/Length Dosing, 101, kg, 07/01/23 15:03:00 EST, Weight Dosing Start Date: 07/18/23 Status: Ordered Start: 06-07-2018 take 1 capsule by [facility] once daily at bedtime Tamsulosin (Flomax) 0.4 [...] Patient encounter status; Translations: [Other specified counseling] 03-30-2024 Episodic Chronic obstructive pulmonary disease and bronchiectasis (2 sources) Bronchitis 07-01-2023 Episodic Diseases of white blood cells (3 sources) Genetic anomalies of leukocytes; 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 Disorders of lipid metabolism (4 sources) Pure hypercholesterolemia, unspecified; Translations: [PURE HYPERCHOLESTEROLEMIA UNSPEC] Onset: 2 Chronic Genitourinary symptoms and ill-defined conditions (19 sources) Blood in urine; Translations: [Gross hematuria] Onset: 2 Episodic Hyperplasia of prostate (17 sources) Benign prostatic hypertrophy with outflow obstruction; Translations: [Benign prostatic hyperplasia with lower urinary tract symptoms] Onset: 2 Chronic Leukemias (3 sources) Chronic lymphocytic leukemia of B-cell type not having achieved remission; Translations: [Chronic lymphoid leukemia, disease] Onset: 4 Chronic Lymphadenitis (1 source) Localized enlarged lymph nodes; Translations: [Localized enlarged lymph nodes] Onset: 4 Episodic Malaise and fatigue (1 source) Other fatigue; Translations: [OTHER FATIGUE] Onset: 3 Episodic Non-Hodgkin`s lymphoma (10 sources) Non-Hodgkin's lymphoma of skin; Translations: [Unspecified [...] upper limb] 02-27-2024 Episodic Other skin disorders (2 sources) History [...] Past history of procedure 03-02-2024 Episod ic Unclassified (4 sources) Finding of sensation of bladder 05-28-2019 Viral infection (2 sources) Herpes zoster 02-09-2023 Episodic Past or Other Problems Problem Classification Problem Date Documented Da te Episodic/Chronic Mood disorders (1 source) Mood disorders Onset: 05-29-2024 05-29-2024 Other gastrointestinal disorders (4 sources) Urgent desire for stool Resolved: 03-26-2019 03-26-2019 Episodic Other screening for suspected conditions (not mental disorders or infectious disease) (14 sources) Raised prostate specific antigen; Translations: [Elevated prostate specific antigen [PSA]] Onset: 11-27-2021 Episodic Other skin disorders (4 sources) Localized swelling, mass and lump, unspecified upper limb; Translations: [Localized superficial swelling, mass, or lump] Onset: 02-27-2024 03-01-2024 Episodic Skin and subcutaneous tissue infections (14 sources) Abscess of right upper limb; Translations: [Cutaneous abscess of right upper limb] Onset: 02-27-2024 03-01-2024 Episodic Results Test Name Value Interpretation Reference Range Facility IGVH MUTATION ANALYSIS (SOMA TIC HYPERMUTATION), BLOOD, DATA ENTRYOrdered By: Adam Parker on 06-08-2024 [facility] IGVH MUTATION ANALYSIS, REESE LOrdered By: Swapnil Hammonds on 06-08-2024 % Divergence 0.3 [facility] Work Phone: IGH PCR Pattern Biallelic/biclonal O [facility] Work Phone: IGVH Interpretation 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 In CLL, cases with unmutated IGVH are associated with unfavorable prognosis and shorter [id number]-[id number]. Correlate with other prognostic markers for full risk stratification. Run and sample controls meet acceptable criteria. [facility] Work Phone: IGVH segment 1(69), 3(23) [facility] Work Phone: Method/Limitations: Method: RNA is extra cted from leukocytes, reverse transcribed, and the variable (V) region of the IGH transcripts amplified by polymerase chain reaction (PCR) to assess the presence or absence of a B-cell clonal rearrangement using two different consensus PCR reactions. One or both PCR products are then sequenced by the [place] method and compared to consensus IGVH segments using the DeskActive-IGBLAST sequence library. Greater than or equal to 2% sequence divergence from consensus is used as the cutoff for mutated status. Limitations: Failure to detect the mutation status of the B-cell clone can occur in 10-15% of cases and is usually due to lower numbers of clonal B cells in sample, interference from biallelic productive IGH rearrangements or PCR failures due to high somatic mutation. In these cases, IGVH sequencing may be attempted using PCR from genomic DNA or an alternate protocol but an indeterminate result may still occur in 5-10% of cases. With this test code, the ordering clinician is provided with an interpretation by a board-certified molecular pathologist integrating genetic results with other laboratory findings to aid in determining the optimal testing approach. This test was developed and its performance determined by the [facility] of the [facility] under the medical direction of Isaac Schwartz MD, PhD. It has not been cleared or approved by the U.S. Food and Drug Administrations. Since FDA (U.S. Food and Drug Administration) approval is not required for clinical use of this test, this laboratory has established and validated the test's accuracy and precision, pursuant to the requirement of CLIA '88. [facility] Work Phone: Mutation Status Unmutated [facility] Work Phone: Reviewed by Swapnil Hammonds MD, PhD [facility] Work Phone: [facility] Work Phone: BETA 2 MICROGLOBULIN SERUMOr dered By: Hanh Gibbs on 05-30-2024 [id number] [Mass/Vol] 2.63 ug/mL High 0.80 - 2.34 mg/L [facility] Interpretation and review of laboratory results Abnormal [facility] IGVH MUTATION ANALYSISOrdere d By: Medhat Carrasquillo on 05-30-2024 Receiving Status Accessioned in Lab [facility] RNA EXTRACTIONOrdered By: Rupal Velasquez on 05-30-2024 [facility] BETA 2 MICROGLOBULIN SERUMon 05-29-2024 Beta 2 Microglobulin 2.63 mg/L High 0.80-2.34 [facility] Comment on above: Performed By: #### B 2M #### [facility] (DEFAULT) [address] [place] [address] CBC AND ELECTRONIC DIFFon Basophils (Bld) [#/Vol] K/uL 0.00 - 0.09 K/uL [facility] Basophils/100 WBC (Bld) 0.2 % [facility] Differential cell count method Nom (Bld) Electronic Differential O [facility] Eosinophils (Bld) [#/Vol] K/uL 0.00 - 0.48 K/uL [facility] Eosinophils/100 WBC (Bld) 0.1 % [facility] Erythrocyte distribution width (RBC) [Ratio] 13.3 % 10.9 - 14.3 % [facility] Hematocrit (Bld) [Volume fraction] 43.6 % 39.6 - 48.8 % [facility] Hemoglobin (Bld) [Mass/Vol] 15.0 g/dL 13.4 - 16.8 g/dL [facility] Immature granulocytes (Bld) [#/Vol] 0.06 10*3/uL NINF - 0.07 K/uL [facility] Immature granulocytes/100 WBC (Bld) 0.7 % [facility] Lymphocytes (Bld) [#/Vol] 2.67 10*3/uL 0.83 - 3.57 K/uL [facility] Lymphocytes/100 WBC (Bld) 31.2 % [facility] MCH (RBC) [Entitic mass] 30.1 pg 26.1 - 33.3 pg [facility] MCHC (RBC) [Mass/Vol] 34.4 g/dL 31.9 - 36.5 g/dL [facility] MCV (RBC) [Entitic vol] 87.4 fL 79.0 - 94.5 fL [facility] Monocytes (Bld) [#/Vol] 0.57 10*3/uL 0.24 - 0.93 K/uL [facility] Monocytes/100 WBC (Bld) 6.7 % [facility] Neutrophils (Bld) [#/Vol] 5.24 10*3/uL 1.57 - 6.19 K/uL [facility] Nucleated RBC/100 WBC (Bld) [Ratio] 0.0 % NINF [facility] Platelet mean volume (Bld) [Entitic vol] 8.9 fL 8.7 - 12.3 fL [facility] Platelets (Bld) [#/Vol] 153 10*3/uL 146 - 337 K/uL [facility] RBC (Bld) [#/Vol] 4.99 10*6/uL [facility] Segmented neutrophils/100 WBC (Bld) 61.1 % [facility] WBC (Bld) [#/Vol] 8.57 10*3/uL 3.73 - 10.10 K/uL [facility] Abs Baso Auto < Normal 0.00-0.09 [facility] Comment on above: Performed By: #### L AB980 #### [facility] (DEFAULT) [address] [place] [address] Abs Eos Auto < Normal 0.00-0.48 [facility] Comment on above: Performed By: #### L AB980 #### [facility] (DEFAULT) [address] [place] [address] Basophils/100 WBC (Bld) 0.2 % Normal [facility] Comment on above: Performed By: #### L AB980 #### [facility] (DEFAULT) [address] [place] [address] DIFF STATUS Electronic Differential Normal [facility] Comment on above: Performed By: #### L AB980 #### [facility] (DEFAULT) [address] [place] [address] Eosinophils/100 WBC (Bld) 0.1 % Normal [facility] Comment on above: Performed By: #### L AB980 #### [facility] (DEFAULT) [address] [place] [address] Hematocrit (Bld) [Volume fraction] 43.6 % Normal 39.6-48.8 [facility] Comment on above: Performed By: #### L AB980 #### [facility] (DEFAULT) [address] [place] [address]754 Hemoglobin (Bld) [Mass/Vol] 15.0 g/dL Normal 13.4-16.8 [facility] Comment on above: Performed By: #### L AB980 #### [facility] (DEFAULT) [address] [place] [address] Immature Grans % 0.7 % Normal [facility] Comment on above: Performed By: #### L AB980 #### [facility] (DEFAULT) [address] [place] [address] Immature Grans Absolute 0.06 K/uL Normal <=0.07 [facility] Comment on above: Performed By: #### L AB980 #### [facility] (DEFAULT) [address] [place] [address] Lymphocytes (Bld) [#/Vol] 2.67 10*3/uL Normal 0.83-3.57 [facility] Comment on above: Performed By: #### L AB980 #### [facility] (DEFAULT) [address] [place] [address]696 Lymphocytes/100 WBC (Bld) 31.2 % Normal [facility] Comment on above: Performed By: #### L AB980 #### [facility] (DEFAULT) [address] [place] [address]32 MCV (RBC) [Entitic vol] 87.4 fL Normal 79.0-94.5 [facility] Comment on above: Performed By: #### L AB980 #### [facility] (DEFAULT) [address] [place] [address] 92627 Mean Cell Hgb 30.1 pg Normal 26.1-33.3 [facility] Comment on above: Performed By: #### L AB980 #### [facility] (DEFAULT) [address] [place] [address]322 Mean Cell Hgb Conc 34.4 g/dL Normal 31.9-36.5 [facility] Comment on above: Performed By: #### L AB980 #### [facility] (DEFAULT) [address] [place] [address] Monocytes (Bld) [#/Vol] 0.57 10*3/uL Normal 0.24-0.93 [facility] Comment on above: Performed By: #### L AB980 #### [facility] (DEFAULT) [address] [address] Monocytes/100 WBC (Bld) 6.7 % Normal [facility] Comment on above: Performed By: #### L AB980 #### [facility] (DEFAULT) [address] [address] Nucleated RBC 0.0 /100 WBC Normal <=0.2 [facility] Comment on above: Performed By: #### L AB980 #### [facility] (DEFAULT) [address] [address] Platelet mean volume (Bld) [Entitic vol] 8.9 fL Normal 8.7-12.3 [facility] Comment on above: Performed By: #### L AB980 #### [facility] (DEFAULT) [address] [address] Platelets (Bld) [#/Vol] 153 10*3/uL Normal 146-337 [facility] Comment on above: Performed By: #### L AB980 #### [facility] (DEFAULT) [address] [address] RBC (Bld) [#/Vol] 4.99 10*6/uL Normal 4.38-5.83 [facility] Comment on above: Performed By: #### L AB980 #### [facility] (DEFAULT) [address] [address] RBC Distribution 13.3 % Normal 10.9-14.3 [facility] Comment on above: Performed By: #### L AB980 #### [facility] (DEFAULT) [address] [place] [address] Segs + Bands Auto 61.1 % Normal [facility] Comment on above: Performed By: #### L AB980 #### [facility] (DEFAULT) [address] [place] [address] Segs + Bands,Absolute Auto 5.24 K/uL Normal 1.57-6.19 [facility] Comment on above: Performed By: #### L AB980 #### [facility] (DEFAULT) [address] [place] [address] WBC (Bld) [#/Vol] 8.57 10*3/uL Normal 3.73-10.10 [facility] Comment on above: Performed By: #### L AB980 #### [facility] (DEFAULT) [address] [place] [address] COMPREHENSIVE METABOLIC PANE Andrea 05-29-2024 Albumin [Mass/Vol] 4.1 g/dL 3.5 - 5.0 g/dL [facility] ALP [Catalytic activity/Vol] 42 U/L 32 - 126 U/L [facility] ALT [Catalytic activity/Vol] 15 U/L 10 - 52 U/L [facility] Anion gap [Moles/Vol] 9 mmol/L 7 - 17 mmol/L [facility] AST [Catalytic activity/Vol] 14 U/L 10 - 39 U/L [facility] Bilirubin [Mass/Vol] 0.6 mg/dL NINF - 1.5 mg/dL [facility] Calcium [Mass/Vol] 8.8 mg/dL 8.6 - 10. 5 mg/dL [facility] Chloride [Moles/Vol] 107 mmol/L 98 - 10 8 mmol/L [facility] CO2 [Moles/Vol] 28 mmol/L 21 - 31 mmol/L [facility] Creatinine [Mass/Vol] 0.93 mg/dL 0.70 - 1.30 mg/dL [facility] eGFR, CKD-EPI, Male 88 - PINF [facility] Comment on above: Reported eGFR is bas ed on the CKD-EPI 2020 equation using creatinine, age, and sex. Glucose [Mass/Vol] 101 mg/dL High 70 - 99 mg/dL [facility] Interpretation and review of laboratory results Abnormal [facility] Osmolality Calc [Osmolality] 293 [facility] Potassium [Moles/Vol] 4.2 mmol/L 3.5 - 5.0 mmol/L [facility] Protein [Mass/Vol] 6.4 g/dL 6.4 - 8.3 g/dL [facility] Sodium [Moles/Vol] 140 mmol/L 135 - 145 mmol/L [facility] Urea nitrogen [Mass/Vol] 13 mg/dL 7 - 25 mg/dL [facility] Urea nitrogen/Creatinine [Mass ratio] 14 mg/mg [facility] Albumin [Mass/Vol] 4.1 g/dL Normal 3.5-5.0 [facility] Comment on above: Performed By: #### C MPN, LDO #### [facility] (DEFAULT) [address] [place] [address] ALP [Catalytic activity/Vol] 42 U/L Normal 32-126 [facility] Comment on above: Performed By: #### C MPN, LDO #### [facility] (DEFAULT) [address] [place] [address] ALT [Catalytic activity/Vol] 15 U/L Normal 10-52 [facility] Comment on above: Performed By: #### C MPN, LDO #### [facility] (DEFAULT) [address] [place] [address] Anion gap [Moles/Vol] 9 mmol/L Normal 7-17 [facility] Comment on above: Performed By: #### C MPN, LDO #### [facility] (DEFAULT) [address] [place] [address]47 AST [Catalytic activity/Vol] 14 U/L Normal 10-39 [facility] Comment on above: Performed By: #### C MPN, LDO #### [facility] (DEFAULT) [address] [place] [address] Bilirubin [Mass/Vol] 0.6 mg/dL Normal <1.5 [facility] Comment on above: Performed By: #### C MPN, LDO #### [facility] (DEFAULT) [address] [place] [address] Calcium [Mass/Vol] 8.8 mg/dL Normal 8.6-10.5 [facility] Comment on above: Performed By: #### C MPN, LDO #### [facility] (DEFAULT) [address] [place] [address]807 Chloride [Moles/Vol] 107 mmol/L Normal 98-108 [facility] Comment on above: Performed By: #### C MPN, LDO #### [facility] (DEFAULT) [address] [place] [address] 60633 CO2 [Moles/Vol] 28 mmol/L Normal 21-31 [facility] Comment on above: Performed By: #### C MPN, LDO #### [facility] (DEFAULT) [address] [place] [address]851 Creatinine [Mass/Vol] 0.93 mg/dL Normal 0.70-1.30 [facility] Comment on above: Performed By: #### C MPN, LDO #### [facility] (DEFAULT) [address] [place] [address]305 GFR/1.73 sq M.predicted among non-blacks MDRD (S/P/Bld) [Vol rate/Area] 88 mL/min/{1.73_m2} Normal >=60 [facility] Comment on above: Result Comment: Repo rted eGFR is based on the CKD-EPI 2020 equation using creatinine, age, and sex. Performed By: #### C MPN, LDO #### [facility] (DEFAULT) [address] [place] [address]36 Glucose [Mass/Vol] 101 mg/dL High 70-99 [facility] Comment on above: Performed By: #### C MPN, LDO #### [facility] (DEFAULT) [address] [place] [address]74 Osmolality [Osmolality] 293 mosm/kg Normal 278-305 [facility] Comment on above: Performed By: #### C MPN, LDO #### [facility] (DEFAULT) [address] [place] [address] Potassium [Moles/Vol] 4.2 mmol/L Normal 3.5-5.0 [facility] Comment on above: Performed By: #### C MPN, LDO #### [facility] (DEFAULT) [address] [place] [address] Protein [Mass/Vol] 6.4 g/dL Normal 6.4-8.3 [facility] Comment on above: Performed By: #### C MPN, LDO #### [facility] (DEFAULT) [address] [place] [address] Sodium [Moles/Vol] 140 mmol/L Normal 135-145 [facility] Comment on above: Performed By: #### C MPN, LDO #### [facility] (DEFAULT) [address] [place] [address]39 Urea nitrogen [Mass/Vol] 13 mg/dL Normal 7-25 [facility] Comment on above: Performed By: #### C MPN, LDO #### [facility] (DEFAULT) [address] [place] [address]906 Urea nitrogen/Creatinine [Mass ratio] 14 mg/mg Normal [facility] Comment on above: Performed By: #### C MPN, LDO #### [facility] (DEFAULT) [address] [place] [address]25 IGVH MUTATION ANALYSISon Receiving Status Accessioned in Lab Normal [facility] Comment on above: Performed By: #### I GHMB #### [facility] (DEFAULT) [address] [place] [address] IMMUNOGLOBULINS IGG IGA IGMo n 05-29-2024 IgA [Mass/Vol] 96 mg/dL 90 - 410 mg/dL [facility] IgG [Mass/Vol] 877 mg/dL 600 - 1560 mg/dL [facility] IgM [Mass/Vol] 125 mg/dL 30 - 360 mg/dL [facility] Interpretation and review of laboratory results Normal [facility] IgA [Mass/Vol] 96 mg/dL Normal 90-410 [facility] Comment on above: Performed By: #### Q IMM #### [facility] (DEFAULT) [address] [place] [address] 50499 IgG [Mass/Vol] 877 mg/dL Normal 600-1560 [facility] Comment on above: Performed By: #### Q IMM #### [facility] [facility] (DEFAULT) [address] [place] [id number] IgM [Mass/Vol] 125 mg/dL Normal 30-360 [facility] Comment on above: Performed By: #### Q IMM #### [facility] (DEFAULT) [address] [place] [address]104 LACTATE DEHYDROGENASEon 05-02 Interpretation and review of laboratory results Normal [facility] LDH Lactate to pyruvate reaction [Catalytic activity/Vol] 144 U/L 100 - 190 U/L [facility] LD Total 144 U/L Normal 100-190 [facility] Comment on above: Performed By: #### C MPN, LDO #### [facility] (DEFAULT) [address] [place] [address] No Panel Informationon 05-29 [facility] Surgical pathology studyon 1 Surgical pathology study Pathology report.total SEE COMMENT Surgical Pathology Report Case: [id number] Authorizing Provider: Collected: 05/17/2024 140 Ordering Location: [facility] Received: 05/17/2024 140 Center Pathologist: Lupe Valdovinos MD Specimen: OUTSIDE BLOCK(S)/SLIDE(S), Right Inguinal lymph Node Tissue Path report.final diagnosis SEE COMMENT A: RIGHT INGUINAL LYMPH NODE, EXCISIONAL BIOPSY: -- 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 The atypical lymphocytes within the diffuse areas are small sized with clumped chromatin. The proliferation centers have larger cells with moderate amount of cytoplasm and occasional prominent nucleoli. There are large prominent / confluent proliferation centers. The histologic sections, together with the immunohistochemical stains and flow cytometric studies(see below) are compatible with the above diagnosis. Ki-67 is increased in some proliferation centers at 40%. Areas of large cell transformation are not seen. Clinical correlation is recommended. IMMUNOHISTOCHEMISTRY: Immunohistochemical stains performed on block A1 demonstrate the following results: CD20: Diffuse strongly positive for B-cells CD3: Positive for T-cells CD5: Positive in the B-cells and T-cells Cyclin D1: Mostly negative CD10: highlights rare germinal centers BCL6: highlights rare germinal centers BCL2: Positive in the atypical lymphocytes, negative in rare germinal centers CD23: Positive PAX5: Diffuse Stongly Positive CD43: Positive CD30: Negative CD68: Negative CD56: scattered cells positive CD138: shows scattered plasma cells CD21: highlights rare germinal center meshworks Ki67: increased proliferation (40%) FLOW CYTOMETRY INTERPRETATION ([id number]) Abnormal / monotypic CD5 positive B-cell population (66% of sample), see separate report for details. FLOW COMMENTS: The abnormal B-cells are immunophenotypically compatible with B-cell small lymphocytic lymphoma / chronic lymphocytic leukemia (B-SLL/CLL). Correlation with clinical, laboratory and morphologic data is recommended. FISH testing (CLL panel) is ordered. FLOW Populations analyzed: Abnormal B-cells 66% Low to intermediate forward scatter, cells characterized as: CD45+, CD19+, CD20+ (diminished), CD5+, CD10-, CD23+, FMC7-, CD30-, CD38+- (~15% positive), CD43+, HLA DR+, slg lambda+ Remaining Lymphocytes 33% B-cells: 1%, polytpic slg light chains T-cells: no significant abnormalities of the T-cell lineage markers tested; increased proportion of T-cells with relatively bright CD38 (feature of activation)(non-specific) CD4:CD8: 3:6 NK cells: <1% CD45 Negative Events/Debris 1% No significant reactivity with the markers tested. Reagents used: CD2, CD3, CD4, CD5, CD7, CD8, CD10, Cd11b, CD19, CD20, CD23, CD30, CD38, CD43, CD45, CD56, CD57, FMC-7 CYTOGENETIC / MOLECULAR STUDIES ([id number]): Insufficient metaphases available for chromosome analysis. No results. See separate report for details. FISH REPORT ([id number]): Fluorescence in situ hybridization (FISH) analysis was performed on cultured cells from this patient's specimen using DNA probes for CLL. Two hundred interphase nuclei were examined for each probe revealed trisomy 12 in 14.0% of nuclei. The signal pattern obtained with the remaining probes did not differ significantly from the normal controls. Trisomy of chromosome 12 is detected in ~20% of patients with B-cell chronic lymphocytic leukemia (B-CLL) by FISH analysis. It is generally associated with an intermediate to a less favorable prognosis. Genetic changes other than those assayed in this study cannot be ruled out on the basis of this testing. Correlation with cytogenetic, clinical and hematopathological findings is suggested for complete interpretation of the results. Follow-up FISH analysis may be considered as a means to monitor the clinical course of the disease. See flow cytometry report [id number] for further information. See cytogenetic report [id number] for further information. The following FISH analysis on CLL FISH panel was performed on this patient specimen: Probe Detection parameters Result ISCN Centromere 12 Detects a Trisomy 12 Detected nuc lina (A70C5l0)[80/200] 13q14(DLEU1) Detects a deletion of 13 q Not detected nuc lina (DLEU1, 13q34)x2 GIO/11q Detects deletion of GIO gene Not detected nuc lina (ATMx2) TP53/17p13 Detects deletion of TP53 gene Not detected nuc lina (Tp53x2) CCND1/IGH-t(11:14) Detects a CCND1/IGH translocation Not detected nuc lina (CCND1,IGH)x2 Immunostains were performed in addition to flow cytometry to fully characterize the phenotype, architecture, and extent of the atypical population(s). This was medically necessary for the best possible diagnosis. The gross and/or microscopic findings were reviewed in conjunction with patho (more content not included)... [facility] Ambulatory Visit Summaryon 0 04-24-2024 Ambulatory Visit Summary Ambulatory Visit Summary MILY IBARHIM :1955 Visit Date:04/24/2024 Ambulatory Visit Instructions Your Diagnosis Elevated PSA BPH with urinary obstruction Feeling of incomplete bladder emptying Urethral stricture in male Erectile dysfunction Gross hematuria Your Care Team Attending Physician - MERRY Fisher APRN, Marika Mao Primary Care Physician - Qiana Gayle This Is Your Medications List Contact prescribing physician if questions or concerns Misc Prescription ([facility] 911 cpap machine supplies: head gear, mask, tubing [...] Follow Up with Octavio EATON, Kassidy Merchant, SCOTT, URO When: Comments: 6 mos w/ PSA Where: Medications What How Much When Why Instructions Unchanged famotidine (famotidine 20 mg Tab) 1 Tablets By Mouth Every day 20 Unknown, Oral Contact prescribing physician if questions or concerns Unchanged finasteride (finasteride 5 mg Tab) 1 Tablets By Mouth Every day Contact prescribing physician if questions or concerns Unchanged Misc Prescription ([facility] 911 cpap machine supplies: head gear, mask, tubing [...] a rect (more content not included)... Normal [facility] Urology Office/Clinic Noteon 04-24-2024 Urology Office/Clinic Note [...] with voice recognition artificial intelligence software, specifically [employer], [employer] and or [employer]. Substitutions may have occurred due to the [...] -Obtain inguinal lymph node biopsy results from [facility] Ordered: Body Mass Index (BMI) documented 3008F [...] for refills. -Continue tamsulosin and finasteride Ordered: 82832 Measure Post Void residual urine and/or bladder capacity by US- non-imaging Body Mass Index (BMI) documented 3008F Current tobacco non-user 1036F Depression Screening Negative 3352F Influenza immunization status assessed 1030F Medication list documented in medical record 1159F Most recent diastolic blood pressure (more content not included)... Normal [facility] Comment on above: Result Comment: Elec tronically Signed By: MERRY Fisher APRN, Marika Mao\.br\Date and Time Signed: 04/24/24 08:58 EDT Andrea 04-20-2024 L Specimen: Received: 04/20/24 Status: KAEL Moreland Num: [id number] Spec Type: Surgical Subm Dr: Jered Leon MD Tissues: A Lymph Node - Biopsy (Needle or Incisional) (R INGUINAL LYMPH NODE) Procedures: HE/8, Gross/Micro L4, BCL-2, BCL-6, CD10, CD138, CD20, CD21, CD23, CD3, CD30, CD43, CD5, CD56, CD68, CYCLIN D1, Ki-67, PAX5 Comments: LYMPHOMA WORKUP PER DR LEON Age/ Patient Sex Location Account Attending Physician Mily Ibrahim 68/M [place] [id number] Jered Leon MD SPEC NUM: [id number] RECD: 04/20/24 STATUS: KAEL MORELAND NUM: [id number] [place]: 04/20/[address]: Jered Leon MD ENTERED: 04/20/[address] [facility] DR: SPEC TYPE: Surgical DEPT: S ENTERED BY: [id number] RECV BY: [id number] ORDERED: HE/8, Gross/Micro L4, BCL-2, BCL-6, CD10, CD138, CD20, CD21, CD23, CD3, CD30, CD43, CD5, CD56, CD68, CYCLIN D1, Ki-67, PAX5 COMMENTS: LYMPHOMA WORKUP PER DR LEON ORDERED: HE/8, Gross/Micro L4, BCL-2, BCL-6, CD10, CD138, CD20, CD21, CD23, CD3, CD30, CD43, CD5, CD56, CD68, CYCLIN D1, Ki-67, PAX5 COMMENTS: LYMPHOMA WORKUP PER DR LEON Supplemental Report Addendum 4 Entered: 05/22/24 Supplemental for findings of consultation report from [facility] laboratory services in [facility] -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), see note Addendum Signed (signature on file) Chin-Gavin Kaur MD 05/22/24 0910 Specimen: [id number] Received: 04/20/24 Status: GIOVANYCris Moreland Num: [id number] Spec Type: Surgical Subm Dr: Jered Leon MD Tissues: A Lymph Node - Biopsy (Needle or Incisional) (R INGUINAL LYMPH NODE) Procedures: HE/8, Gross/Micro L4, BCL-2, BCL-6, CD10, CD138, CD20, CD21, CD23, CD3, CD30, CD43, CD5, CD56, CD68, CYCLIN D1, Ki-67, PAX5 Comments: LYMPHOMA WORKUP PER DR LEON Patient: SusantaiMily Henna [id number] (Continued) Specimen: [id number] Received: 04/20/24 (Continued) Supplemental Report (Continued) Signed (signature on file) Teo Kaur MD 04/26/24 1803 Specimen: [id number] Received: 04/20/24 Status: KAEL Moreland Num: [id number] Spec Type: Surgical Subm Dr: Jered Leon MD Tissues: A Lymph Node - Biopsy (Needle or Incisional) (R INGUINAL LYMPH NODE) Procedures: HE/8, Gross/Micro L4, BCL-2, BCL-6, CD10, CD138, CD20, CD21, CD23, CD3, CD30, CD43, CD5, CD56, CD68, CYCLIN D1, Ki-67, PAX5 Comments: LYMPHOMA WORKUP PER DR LEON Patient: Mily Ibrahim Henna [id number] (Continued) Specimen: [id number] Received: 04/20/24-1042 (Continued) Supplemental Report (Continued) Addendum 3 Entered: 05/08/24 Supplemental for findings of summary of results report from [facility] -Please also see the findings of all 3 previous supplementals already attached Addendum Signed (signature on file) Koffi-Gavin Kaur MD 05/08/24 1403 Addendum 2 Entered: 05/03/24 #1, Supplemental for findings of cytogenetic analysis report from [facility] RESULT: -Insufficient metaphases available for chromosome analysis -No results #2, Supplemental for findings of FISH report from [facility] TargetGene analysis RESULT -Abnormal CLL FISH panel -Trisomy for chromosome 12 Addendum Signed (signature on file) Teo Kaur MD 05/03/24 0901 Specimen: [id number] Received: 04/20/24 Status: KAEL Jamie Num: [id number] Spec Type: Surgical Subm Dr: Jered Leon MD Tissues: A Lymph Node - Biopsy (Needle or Incisional) (R INGUINAL LYMPH NODE) Procedures: HE/8, Gross/Micro L4, BCL-2, BCL-6, CD10, CD138, CD20, CD21, CD23, CD3, CD30, CD43, CD5, CD56, CD68, CYCLIN D1, Ki-67, PAX5 Comments: LYMPHOMA WORKUP PER DR LEON Patient: Mily Ibrahim [id number] (Continued) (more content not included)... Normal [facility] Capillary blood glucose abraham urement by glucometer (mass/volume)Ordered By: Maria Ines Hanley on 04-04-2024 Glucose [Mass/Vol] 101 mg/dL Normal [facility] Comment on above: Random Glucose Refer ence Range is dependent on time and content of last meal. Glucose of more than 200 mg/dL in a nonstressed, ambulatory subject supports the diagnosis of Diabetes Mellitus. Result Comment: [place] om Glucose Reference Range is dependent on time and content of last meal. Glucose of more than 200 mg/dL in a nonstressed, ambulatory subject supports the diagnosis of Diabetes Mellitus. PERFORMED BY: [place] [address] PATHOLOGIST IN STORE MARKETER WILLI VILLEDA M.D. Performed By: #### C UBLD #### [address] PET tumor init tx strat wbon 04-04-2024 PET tumor init tx strat wb [facility] [place] [address] [place] [address] Nuclear Medicine Report Signed Patient: Mily Ibrahim MR#: [id number] : 1955 Acct:[id number] Age/Sex: 68 / M ADM Date: 04/04/24 Loc: Room: Type: [facility] Attending Dr: Maria Ines Hanley MD Copies [...] with ultrasound is recommended. Impression dictated by: Priec Barker Jr., Fadia04/04/2024 1:48 PM Dictation Location: [place] [address] Transcribed By: [facility] 04/04/24 1348 Dictated By: Price Barker Jr, DO 04/04/24 1336 Signed By: 04/04/24 1348 Normal [facility] Alanine aminotransferase [En zymatic activity/volume] in Serum or PlasmaOrdered By: Maria Ines Hanley on 03-29-2024 ALT [Catalytic activity/Vol] 16 U/L Normal 7-52 [facility] Comment on above: Performed By: #### S PE, IMM RICKEY, KAPPA, B2-MICRO #### [facility] , #### LDH, CMP, CBC, HAPT #### [facility] [address] Albumin [Mass/volume] in Ser um or PlasmaOrdered By: Maria Ines Hanley on 03-29-2024 Albumin [Mass/Vol] 3.5 g/dL Normal 2.9-4.4 [facility] Comment on above: Performed By: #### V ANCP #### [facility] [address] Albumin [Mass/volume] in Ser um or Plasma by Bromocresol green (BCG) dye binding methoOrdered By: Maria Ines Hanley on 03-29-2024 Albumin BCG dye [Mass/Vol] 4.0 g/dL 3.5-5.7 [facility] Alkaline phosphatase [Enzyma tic activity/volume] in Serum or PlasmaOrdered By: Maria Ines Monroese on 03-29-2024 ALP [Catalytic activity/Vol] 46 U/L Normal 34-104 [facility] Comment on above: Performed By: #### S PE, IMM RICKEY, KAPPA, B2-MICRO #### [facility] , #### LDH, CMP, CBC, HAPT #### [address] Aspartate aminotransferase [ Enzymatic activity/volume] in Serum or PlasmaOrdered By: Maria Ines Talon on 03-29-2024 AST [Catalytic activity/Vol] 15 U/L Normal 13-39 [facility] Comment on above: Performed By: #### S PE, IMM RICKEY, KAPPA, B2-MICRO #### [facility] , #### LDH, CMP, CBC, HAPT #### [address] Automated basophil %Ordered By: Maria Ines Talon on 03-29-2024 Basophils/100 WBC (Bld) 0.4 % Normal . [facility] Comment on above: Performed By: #### S PE, IMM RICKEY, KAPPA, B2-MICRO #### [facility] , #### LDH, CMP, CBC, HAPT #### [address] Automated basophil countOrde red By: Maria Ines Hanley on 03-29-2024 Basophils (Bld) [#/Vol] 0.0 10*3/uL Normal 0.0-0.2 [facility] Comment on above: Result Comment: PERF ORMED BY: [place] [address] PATHOLOGIST IN STORE MARKETER WILLI VILLEDA M.D. Performed By: #### S PE, IMM RICKEY, KAPPA, B2-MICRO #### [facility] , #### LDH, CMP, CBC, HAPT #### [address] Automated blood monocyte cou ntOrdered By: Maria Ines Hanley on 03-29-2024 Monocytes (Bld) [#/Vol] 0.5 10*3/uL Normal 0.0-0.8 [facility] Comment on above: Performed By: #### S PE, IMM RICKEY, KAPPA, B2-MICRO #### [facility] , #### LDH, CMP, CBC, HAPT #### [address] Automated eosinophil %Ordere d By: Maria Ines Hanley on 03-29-2024 Eosinophils/100 WBC (Bld) 1.1 % Normal . [facility] Comment on above: Performed By: #### S PE, IMM RICKEY, KAPPA, B2-MICRO #### [facility] , #### LDH, CMP, CBC, HAPT #### [address] Automated eosinophil countOr dered By: Maria Ines Hanley on 03-29-2024 Eosinophils (Bld) [#/Vol] 0.1 10*3/uL Normal 0.0-0.45 [facility] Comment on above: Performed By: #### S PE, IMM RICKEY, KAPPA, B2-MICRO #### [facility] , #### LDH, CMP, CBC, HAPT #### [address] Automated monocyte %Ordered By: Maria Ines Mornoese on 03-29-2024 Monocytes/100 WBC (Bld) 5.9 % Normal . [facility] Comment on above: Performed By: #### S PE, IMM RICKEY, KAPPA, B2-MICRO #### [facility] , #### LDH, CMP, CBC, HAPT #### [address] [place] [address] [place] Automated neutrophil %Ordere d By: Maria Ines Hanley on 03-29-2024 Neutrophils/100 WBC (Bld) 61.7 % Normal . [facility] Comment on above: Performed By: #### S PE, IMM RICKEY, KAPPA, B2-MICRO #### [facility] , #### LDH, CMP, CBC, HAPT #### [place] [address] [place] Beta 2 Microglobulin, Serumo n 03-29-2024 Beta 2 Microglobulin, Serum 2.2 mg/L Normal 0.6-2.4 [facility] Comment on above: Result Comment: [facility] [employer] 2000 Immunochemiluminometric assay (ICMA) Values obtained with different assay methods or kits cannot be used interchangeably. Results cannot be interpreted as absolute evidence of the presence or absence of malignant disease. Performed at: [address] [id number] [employer] Host/Hostess: Sohan Broderick MD, Phone: [phone] Performed By: #### V ANCP #### [address] Bilirubin.total [Mass/volume ] in Serum or PlasmaOrdered By: Maria Ines Talon on 03-29-2024 Bilirubin [Mass/Vol] 0.5 mg/dL Normal 0.3-1.0 [facility] Comment on above: Performed By: #### S PE, IMM RICKEY, KAPPA, B2-MICRO #### [facility] , #### LDH, CMP, CBC, HAPT #### [place] [address] [place] Calcium [Mass/volume] in Ser um or PlasmaOrdered By: Maria Ines Monroese on 03-29-2024 Calcium [Mass/Vol] 8.8 mg/dL Normal 8.6-10.3 [facility] Comment on above: Performed By: #### S PE, IMM RICKEY, KAPPA, B2-MICRO #### [facility] , #### LDH, CMP, CBC, HAPT #### [address] Carbon dioxide, total [Moles /volume] in Serum or PlasmaOrdered By: Maria Ines Hanley on 03-29-2024 CO2 [Moles/Vol] 30.5 mmol/L Normal 21.0-31.0 [facility] Comment on above: Performed By: #### S PE, IMM RICKEY, KAPPA, B2-MICRO #### [facility] , #### LDH, CMP, CBC, HAPT #### [address] Chloride [Moles/volume] in S flor or PlasmaOrdered By: Maria Ines Hanley on 03-29-2024 Chloride [Moles/Vol] 106 mmol/L Normal 98-107 [facility] Comment on above: Performed By: #### S PE, IMM RICKEY, KAPPA, B2-MICRO #### [facility] , #### LDH, CMP, CBC, HAPT #### [address] Complete Blood Count Auto Di ffon 03-29-2024 Mean Corpuscular HGB Conc 34.0 g/dL Normal 32.5-35.6 [facility] Comment on above: Performed By: #### S PE, IMM RICKEY, KAPPA, B2-MICRO #### [facility] , #### LDH, CMP, CBC, HAPT #### [address] NRBC% 0.1 /100{WBC} Normal 0-0.5 [facility] Comment on above: Performed By: #### S PE, IMM RICKEY, KAPPA, B2-MICRO #### [facility] , #### LDH, CMP, CBC, HAPT #### [address] Comprehensive Metabolic Pane andrea 03-29-2024 Albumin [Mass/Vol] 4.0 g/dL Normal 3.5-5.7 [facility] Comment on above: Performed By: #### S PE, IMM RICKEY, KAPPA, B2-MICRO #### [facility] , #### LDH, CMP, CBC, HAPT #### [address] Creatinine Clr Calc Pharmacy 82.13 Normal [facility] Comment on above: Performed By: #### S PE, IMM RICKEY, KAPPA, B2-MICRO #### [facility] , #### LDH, CMP, CBC, HAPT #### [address] GFR/1.73 sq M.predicted MDRD (S/P/Bld) [Vol rate/Area] mL/min/{1.73_m2} Normal [facility] Comment on above: Performed By: #### S PE, IMM RICKEY, KAPPA, B2-MICRO #### [facility] , #### LDH, CMP, CBC, HAPT #### [address] Creatinine [Mass/volume] in Serum or PlasmaOrdered By: Maria Ines Hanley on 03-29-2024 Creatinine [Mass/Vol] 1.04 mg/dL Normal 0.70-1.30 [facility] Comment on above: Performed By: #### S PE, IMM RICKEY, KAPPA, B2-MICRO #### [facility] , #### LDH, CMP, CBC, HAPT #### [address] Direct [place] 03-29-2024 Polyspecific AHG Negative Normal Negative [facility] Comment on above: Result Comment: PERF ORMED BY: [place] [address] PATHOLOGIST IN STORE MARKETER WILLI VILLEDA M.D. Erythrocyte distribution wid th [Ratio] by Automated countOrdered By: Maria Ines Hanley on 03-29-2024 Erythrocyte distribution width (RBC) [Ratio] 14.2 % Normal 12.0-14.8 [facility] Comment on above: Performed By: #### S PE, IMM RICKEY, KAPPA, B2-MICRO #### [facility] , #### LDH, CMP, CBC, HAPT #### [address] Erythrocytes [#/volume] in B lood by Automated countOrdered By: Maria Ines Hanley on 03-29-2024 RBC (Bld) [#/Vol] 4.72 10*6/uL Normal 3.90-5.60 [facility] Comment on above: Performed By: #### S PE, IMM RICKEY, KAPPA, B2-MICRO #### [facility] , #### LDH, CMP, CBC, HAPT #### [address] Free K+L LT Chains, Qn, Son 03-29-2024 Free [place] Light Chains, S 16.4 mg/L Normal 3.3-19.4 [facility] Comment on above: Performed By: #### V ANCP #### [address] Free Lambda Light Chains, S 18.0 mg/L Normal 5.7-26.3 [facility] Comment on above: Performed By: #### V ANCP #### [address] [place]/Lambda Ratio, S 0.91 Normal 0.26-1.65 [facility] Comment on above: Result Comment: Perf ormed at: - [facility] [address] [id number] [employer] Host/Hostess: Clifton Rooney PhD, Phone: [phone] PERFORMED BY: [place] [address] PATHOLOGIST IN STORE MARKETER WILLI VILLEDA M.D. Performed By: #### V ANCP #### [place] [address] [place] Glucose [Mass/volume] in Ser um or PlasmaOrdered By: Maria Ines Hanley on 03-29-2024 Glucose [Mass/Vol] 112 mg/dL High 70-100 [facility] Comment on above: ADA recommended refe rence rangeRandom Glucose Reference Range is dependent on time and content of last meal. Glucose of more than 200 mg/dL in a nonstressed, ambulatory subject supports the diagnosis of Diabetes Mellitus. Result Comment: [place] om Glucose Reference Range is dependent on time and content of last meal. Glucose of more than 200 mg/dL in a nonstressed, ambulatory subject supports the diagnosis of Diabetes Mellitus. ADA recommended reference range Performed By: #### S PE, IMM RICKEY, KAPPA, B2-MICRO #### [facility] , #### LDH, CMP, CBC, HAPT #### [address] Haptoglobinon 03-29-2024 Haptoglobin 124 mg/dL Normal 44-215 [facility] Comment on above: Result Comment: PERF ORMED BY: [place] [address] PATHOLOGIST IN STORE MARKETER WILLI VILLEDA M.D. Performed By: #### S PE, IMM RICKEY, KAPPA, B2-MICRO #### [facility] , #### LDH, CMP, CBC, HAPT #### [address] Haptoglobin [Mass/volume] in Serum or PlasmaOrdered By: Maria Ines Hanley on 03-29-2024 Haptoglobin [Mass/Vol] 124 mg/dL 44-215 [facility] Hematocrit [Volume Fraction] of Blood by Automated countOrdered By: Maria Ines Hanley on 03-29-2024 Hematocrit (Bld) [Volume fraction] 42.0 % Normal 38.8-50.0 [facility] Comment on above: Performed By: #### S PE, IMM RICKEY, KAPPA, B2-MICRO #### [facility] , #### LDH, CMP, CBC, HAPT #### [address] Hemoglobin [Mass/volume] in BloodOrdered By: Maria Ines Hanley on 03-29-2024 Hemoglobin (Bld) [Mass/Vol] 14.3 g/dL Normal 13.0-17.0 [facility] Comment on above: Performed By: #### S PE, IMM RICKEY, KAPPA, B2-MICRO #### [facility] , #### LDH, CMP, CBC, HAPT #### [facility] [address] IgA [Mass/volume] in Serum o r PlasmaOrdered By: Maria Ines Hanley on 03-29-2024 IgA [Mass/Vol] 103 mg/dL 61-437 [facility] IgG [Mass/volume] in Serum o r PlasmaOrdered By: Maria Ines Hanley on 03-29-2024 IgG [Mass/Vol] 877 mg/dL 603-1613 [facility] IgM [Mass/volume] in Serum o r PlasmaOrdered By: Maria Ines Hanley on 03-29-2024 IgM [Mass/Vol] 112 mg/dL 20-172 [facility] Comment on above: Performed at: [employer] [place], [place] [id number] Director: Clifton Rooney PhD, Phone: [phone] Immunoglobulin light chains. kappa.free [Mass/volume] in SerumOrdered By: Maria Ines Hanley on 03-29-2024 Immunoglobulin light chains.kappa.free (S) [Mass/Vol] 16.4 mg/L 3.3-19.4 [facility] Immunoglobulin light chains. kappa.free/Immunoglobulin light chains.lambda.free [MassOrdered By: Maria Ines Hanley on 03-29-2024 Immunoglobulin light chains.kappa.free/Immu noglobulin light chains.lambda.free (S) [Mass ratio] 0.91 0.26-1.65 [facility] Comment on above: Performed at: [employer] [place], [place] [id number] Director: Clifton Rooney PhD, Phone: [phone] Immunoglobulin light chains. lambda.free [Mass/volume] in Serum or PlasmaOrdered By: Maria Ines Hanley on 03-29-2024 Immunoglobulin light chains.lambda.free [Mass/Vol] 18.0 mg/L 5.7-26.3 [facility] Immunoglobulins A/G/M, Qn, S fabricio 03-29-2024 Immunoglobulin A, Serum 103 mg/dL Normal 61-437 [facility] Comment on above: Performed By: #### S PE, IMM RICKEY, KAPPA, B2-MICRO #### [facility] , #### LDH, CMP, CBC, HAPT #### [facility] [address] [place] [address] Immunoglobulin G 877 mg/dL Normal 603-1613 [facility] Comment on above: Performed By: #### S PE, IMM RICKEY, KAPPA, B2-MICRO #### [facility] , #### LDH, CMP, CBC, HAPT #### [address] Immunoglobulin M, Serum 112 mg/dL Normal 20-172 [facility] Comment on above: Result Comment: Perf ormed at: - [facility] [place] [id number] [employer] Host/Hostess: Clifton Rooney PhD, Phone: [phone] Performed By: #### S PE, IMM RICKEY, KAPPA, B2-MICRO #### [facility] , #### LDH, CMP, CBC, HAPT #### [address] LDH Lactate Dehydrogenaseon 03-29-2024 LDH Lactate Dehydrogenase 249 U/L Normal 140-271 [facility] Comment on above: Result Comment: PERF ORMED BY: [place] [address] PATHOLOGIST IN STORE MARKETER WILLI VILLEDA M.D. Performed By: #### S PE, IMM RICKEY, KAPPA, B2-MICRO #### [facility] , #### LDH, CMP, CBC, HAPT #### [address] Lactate dehydrogenase [Enzym atic activity/volume] in Serum or Plasma by Lactate to pyOrdered By: Maria Ines Hanley on 03-29-2024 LDH Lactate to pyruvate reaction [Catalytic activity/Vol] 249 U/L 140-271 [facility] Leukocytes [#/volume] correc isa for nucleated erythrocytes in Blood by Automated counOrdered By: Maria Ines Talon on 03-29-2024 WBC corrected for nucl RBC Auto (Bld) [#/Vol] 8.4 10*3/uL 4.1-10.5 [facility] Leukocytes [#/volume] in Blo od by Automated countOrdered By: Maria Ines Hanley on 03-29-2024 WBC (Bld) [#/Vol] 8.4 10*3/uL Normal 4.1-10.5 [facility] Comment on above: Performed By: #### S PE, IMM RICKEY, KAPPA, B2-MICRO #### [facility] , #### LDH, CMP, CBC, HAPT #### [facility] [address] [place] [address] Lymphocytes [#/volume] in Bl ood by Automated countOrdered By: Maria Ines Hanley on 03-29-2024 Lymphocytes (Bld) [#/Vol] 2.6 10*3/uL Normal 1.00-4.8 [facility] Comment on above: Performed By: #### S PE, IMM RICKEY, KAPPA, B2-MICRO #### [facility] , #### LDH, CMP, CBC, HAPT #### [facility] [address] [place] [address] [place] Lymphocytes/100 leukocytes i n Blood by Automated countOrdered By: Maria Ines Hanley on 03-29-2024 Lymphocytes/100 WBC (Bld) 30.9 % Normal . [facility] Comment on above: Performed By: #### S PE, IMM RICKEY, KAPPA, B2-MICRO #### [facility] , #### LDH, CMP, CBC, HAPT #### [facility] [address] [place] [address] [place] MCH [Entitic mass] by Automa isa countOrdered By: Maria Ines Hanley on 03-29-2024 MCH (RBC) [Entitic mass] 30.3 pg Normal 27.5-35.2 [facility] Comment on above: Performed By: #### S PE, IMM RICKEY, KAPPA, B2-MICRO #### [facility] , #### LDH, CMP, CBC, HAPT #### [facility] [address] [place] [address] MCHC Auto (RBC) [Mass/Vol]Or dered By: Maria Ines Hanley on 03-29-2024 MCHC (RBC) [Mass/Vol] 34.0 g/dL 32.5-35.6 [facility] MCV [Entitic volume] by Auto mated countOrdered By: Maria Ines Hanley on 03-29-2024 MCV (RBC) [Entitic vol] 89.0 fL Normal 83.5-101 [facility] Comment on above: Performed By: #### S PE, IMM RICKEY, KAPPA, B2-MICRO #### [facility] , #### LDH, CMP, CBC, HAPT #### [facility] [address] [place] [address] Neutrophils [#/volume] in Bl ood by Automated countOrdered By: Maria Ines Hanley on 03-29-2024 Neutrophils (Bld) [#/Vol] 5.2 10*3/uL Normal 1.8-7.7 [facility] Comment on above: Performed By: #### S PE, IMM RICKEY, KAPPA, B2-MICRO #### [facility] , #### LDH, CMP, CBC, HAPT #### [facility] [address] [place] [address] No Panel InformationOrdered By: Maria Ines Hanley on 03-29-2024 Estimated GFR (CKD-EPI) > 60.0 mL/Min [facility] Creatinine Clearance (Chem 82.13 [facility] Protein Electrophoresis M-Dimitri Not observed g/dL Not Observed [facility] Protein Electrophoresis Note Comment . [facility] Comment on above: Protein electrophore sis scan will follow via computer,mail, or college basketball coach delivery. Nucleated erythrocytes [Pres ence] in Blood by Automated countOrdered By: Maria Ines Hanley on 03-29-2024 Nucleated RBC Auto Ql (Bld) 0.1 /100{WBC} 0-0.5 [facility] Platelet mean volume [Entiti c volume] in Blood by Automated countOrdered By: Maria Ines Talon on 03-29-2024 Platelet mean volume (Bld) [Entitic vol] 7.4 fL Normal 6.6-10.1 [facility] Comment on above: Performed By: #### S PE, IMM RICKEY, KAPPA, B2-MICRO #### [facility] , #### LDH, CMP, CBC, HAPT #### [address] Platelets [#/volume] in Bloo d by Automated countOrdered By: Maria Ines Hanley on 03-29-2024 Platelets (Bld) [#/Vol] 178 10*3/uL Normal 150-450 [facility] Comment on above: Performed By: #### S PE, IMM RICKEY, KAPPA, B2-MICRO #### [facility] , #### LDH, CMP, CBC, HAPT #### [address] Potassium [Moles/volume] in Serum or PlasmaOrdered By: Maria Ines Hanley on 03-29-2024 Potassium [Moles/Vol] 3.9 mmol/L Normal 3.5-5.1 [facility] Comment on above: Performed By: #### S PE, IMM RICKEY, KAPPA, B2-MICRO #### [facility] , #### LDH, CMP, CBC, HAPT #### [address] Protein Electrophoresis, Ser umon 03-29-2024 Ctfqs-6-Nvcolann 0.2 g/dL Normal 0.0-0.4 [facility] Comment on above: Performed By: #### V ANCP #### [address] Vyaxh-9-Yegcxtru 0.6 g/dL Normal 0.4-1.0 [facility] Comment on above: Performed By: #### V ANCP #### [facility] [address] Beta Globulin 0.8 g/dL Normal 0.7-1.3 [facility] Comment on above: Performed By: #### V ANCP #### [address] Gamma Globulin 0.9 g/dL Normal 0.4-1.8 [facility] Comment on above: Performed By: #### V ANCP #### [address] M-Dimitri Not Observed Normal Not Observed [facility] Comment on above: Performed By: #### V ANCP #### [address] SPE-Note Comment Normal . [facility] Comment on above: Result Comment: Prot ein electrophoresis scan will follow via computer, mail, or college basketball coach delivery. Performed By: #### V ANCP #### [address] Protein [Mass/volume] in Ser um or PlasmaOrdered By: Maria Ines Hanley on 03-29-2024 Protein [Mass/Vol] 5.8 g/dL Low 6.4-8.9 [facility] Comment on above: Performed By: #### S PE, IMM RICKEY, KAPPA, B2-MICRO #### [facility] , #### LDH, CMP, CBC, HAPT #### [address] Protein [Mass/Vol] 5.9 g/dL Low 6.0-8.5 [facility] Comment on above: Performed By: #### V ANCP #### [address] Serum globulin measurement ( mass/volume)Ordered By: Maria Ines Hanley on 03-29-2024 Globulin (S) [Mass/Vol] 2.4 g/dL Normal 2.2-3.9 [facility] Comment on above: Performed By: #### V ANCP #### [address] Serum globulin measurement b y calculation (mass/volume)Ordered By: Maria Ines Hanley on 03-29-2024 Globulin (S) [Mass/Vol] 1.8 g/dL Normal [facility] Comment on above: Performed By: #### S PE, IMM RICKEY, KAPPA, B2-MICRO #### [facility] , #### LDH, CMP, CBC, HAPT #### [facility] [address] Serum or plasma albumin/glob ulin mass ratioOrdered By: Maria Ines Hanley on 03-29-2024 Albumin/Globulin [Mass ratio] 2.2 {ratio} Normal [facility] Comment on above: Performed By: #### S PE, IMM RICKEY, KAPPA, B2-MICRO #### [facility] , #### LDH, CMP, CBC, HAPT #### [address] Albumin/Globulin [Mass ratio] 1.5 {ratio} Normal 0.7-1.7 [facility] Comment on above: Performed By: #### V ANCP #### [address] Serum or plasma alpha 1 glob ulin measurement by electrophoresis (mass/volume)Ordered By: Maria Ines Hanley on 03-29-2024 Alpha 1 globulin Elph [Mass/Vol] 0.2 g/dL 0.0-0.4 [facility] Serum or plasma alpha 2 glob ulin measurement by electrophoresis (mass/volume)Ordered By: Maria Ines Hanley on 03-29-2024 Alpha 2 globulin Elph [Mass/Vol] 0.6 g/dL 0.4-1.0 [facility] Serum or plasma anion gap de terminationOrdered By: Maria Ines Hanley on 03-29-2024 Anion gap [Moles/Vol] 7.4 mmol/L Normal 6.0-15.0 [facility] Comment on above: Performed By: #### S PE, IMM RICKEY, KAPPA, B2-MICRO #### [facility] , #### LDH, CMP, CBC, HAPT #### [facility] [address] Serum or plasma beta globuli n measurement by electrophoresis (mass/volume)Ordered By: Maria Ines Hanley on 03-29-2024 Beta globulin Elph [Mass/Vol] 0.8 g/dL 0.7-1.3 [facility] Serum or plasma xhuq-9-udxfe globulin measurement (mass/volume)Ordered By: Maria Ines Hanley on 03-29-2024 Uaaw-4-Yrsvwqswmwsrb [Mass/Vol] 2.2 ug/mL 0.6-2.4 [facility] Comment on above: Siemens Immulite 200 0 Immunochemiluminometric assay (ICMA)Values obtained with different assay methods or kits cannotbe used interchangeably. Results cannot be interpreted asabsolute evidence of the presence or absence of malignantdisease.Performed at: [facility] [employer] [id number] Director: Sohan Broderick MD, Phone: [phone] Serum or plasma gamma globul in measurement by electrophoresis (mass/volume)Ordered By: Maria Ines Hanley on 03-29-2024 Gamma globulin Elph [Mass/Vol] 0.9 g/dL 0.4-1.8 [facility] Sodium [Moles/volume] in Ser um or PlasmaOrdered By: Maria Ines Hanley on 03-29-2024 Sodium [Moles/Vol] 140 mmol/L Normal 136-145 [facility] Comment on above: Performed By: #### S PE, IMM RICKEY, KAPPA, B2-MICRO #### [facility] , #### LDH, CMP, CBC, HAPT #### [facility] [address] Urea nitrogen [Mass/volume] in Serum or PlasmaOrdered By: Maria Ines Hanley on 03-29-2024 Urea nitrogen [Mass/Vol] 12 mg/dL Normal 7-25 [facility] Comment on above: Performed By: #### S PE, IMM RICKEY, KAPPA, B2-MICRO #### [facility] , #### LDH, CMP, CBC, HAPT #### [facility] [address] [place] [address] [facility] 03-09-20 [facility] Case Information Case Priority: None Programs: -- Referral Source: Systems Security Consultant Referral Reason: Care coordination Case Type: Transition Care Management Risk Score: -- Case Status: Enrolled (March 05, 2024) Date Assigned: March 02, 2024 Assigned By: Jignesh Guerrero Date Enrolled: March 05, 2024 Assigned Primary Personnel: Jignesh Guerrero Assigned Secondary Personnel: -- Case Physician: Qiana Gayle Problems Ongoing Abscess of arm BPH [...] (min): 4 Outcome: Case discussion Contact Type: sales marketing coordinator Contact Name: Jignesh Guerrero Notes: TCM#2- see tcm note Created By: Jignesh Guerrero Date: March 02, 2024 Method: In-person Type: -- Duration (min): -- Outcome: Case discussion Contact Type: Primary care provider Contact Name: Qiana Gayle Notes: TCM#1- see ov note. Created By: Jignesh Guerrero [facility] Family Medicine Office/Clini c Noteon 03-02-2024 Family Medicine Office/Clinic Note Family Medicine Office/Clinic Note HPI Staff Mily is a 68 year old male presenting with ER followup: 02/27/24 US Venous Doppler 02/27/24 Chest XR Hospital: [facility] [place] Visit date: 03/01 Symptoms the patient presented with: abscess [...] TCM Trans care mgmt 7 day disch 38374 2. Abscess of arm (L02.419: Cutaneous abscess of limb, unspecified) incision is clean and dry sutures intact Ordered: TCM Trans care mgmt 7 day disch 38490 3. Non-smoker (Z78.9: Other specified health status) continue not smoking Ordered: TCM Trans care mgmt 7 day disch 20868 4. BMI 29.0-29.9,adult (Z68.29: Body mass index [BMI] 29.0-29.9, adult) BMI education given Ordered: TCM Trans care mgmt 7 day disch 84676 Follow-up No qualifying data available Problem List/Past [...] cap(s), Oral, Daily, 11 refills Multi Vitamin+ [place] [facility] 911 cpap machine supplies: head gear, mask, tubing [...] virus vaccine, inactivated 05/14/2022 Recorded SARS-CoV-2 (COVID-19) [id number] 05/14/2022 Recorded SARSCoV2 mRNA(zqctzanky-ntcw-wmptam ) vac 12/07/2021 Recorded SARS-CoV-2 (COVID-19) mRNA BNT-162b2 vax 05/10/2021 Recorded SARS-CoV-2 (COVID-19) Ad26 vaccine 10/18/2020 Recorded SARS-CoV-2 (COVID-19) mRNA BNT-162b2 vax 09/27/2020 Recorded SARS-CoV-2 (COVID-19) Ad26 vaccine 09/02/2020 Recorded pneumococcal 13-valent vaccine 06/05/2020 Recorded influenza virus vaccine, inactivated 06/05/2020 Recorded Normal [facility] Comment on above: Result Comment: Elec tronically Signed By: Thai KEY, Qiana Vidal\.br\Date and Time Signed: 03/02/24 14:23 EDT Basic Metabolic Panelon Creatinine Clr Calc Pharmacy 82.82 Normal [facility] Comment on above: Performed By: #### V ANCP #### [facility] [address] [place] [address] GFR/1.73 sq M.predicted MDRD (S/P/Bld) [Vol rate/Area] mL/min/{1.73_m2} Normal [facility] Comment on above: Performed By: #### V ANCP #### [facility] [address] Calcium [Mass/volume] in Ser um or PlasmaOrdered By: Antony Thompson on 03-01-2024 Calcium [Mass/Vol] 8.8 mg/dL Normal 8.6-10.3 [facility] Comment on above: Performed By: #### V ANCP #### [address] Carbon dioxide, total [Moles /volume] in Serum or PlasmaOrdered By: Antony Thompson on 03-01-2024 CO2 [Moles/Vol] 24.8 mmol/L Normal 21.0-31.0 [facility] Comment on above: Performed By: #### V ANCP #### [place] [address] [place] Chloride [Moles/volume] in S flor or PlasmaOrdered By: Antony Thompson on 03-01-2024 Chloride [Moles/Vol] 104 mmol/L Normal 98-107 [facility] Comment on above: Performed By: #### V ANCP #### [address] Creatinine [Mass/volume] in Serum or PlasmaOrdered By: Antony Thompson on 03-01-2024 Creatinine [Mass/Vol] 1.03 mg/dL Normal 0.70-1.30 [facility] Comment on above: Performed By: #### V ANCP #### [address] ECG 12 lead ECGon 03-01-2024 ECG 12 lead ECG [facility] [place] [address] Electrocardiograph Report Signed Patient: Mily Ibrahim MR#: [id number] : 1955 Acct:[id number] Age/Sex: 68 / M ADM Date: 02/27/24 Loc: Room: 6V6203-5 Type: ADM IN Attending Dr: Antony Thompson [...] rhythm Normal ECG Confirmed by KENNEDY EATON [facility], YULIANA ([id number]) on 03/01/2024 12:39:06 PM Referred By: Electronically Signed By: YULIANA BENAVIDES MD [facility] Transcribed By: MUS Signed By Yuliana Benavides MD, [facility] 03/01/24 1239 Normal [facility] Erythrocyte distribution wid th [Ratio] by Automated countOrdered By: Antony Thompson on 03-01-2024 Erythrocyte distribution width (RBC) [Ratio] 12.9 % Normal 12.0-14.8 [facility] Comment on above: Performed By: #### V ANCP #### [address] Erythrocytes [#/volume] in B lood by Automated countOrdered By: Antony Thompson on 03-01-2024 RBC (Bld) [#/Vol] 4.95 10*6/uL Normal 3.90-5.60 [facility] Comment on above: Performed By: #### V ANCP #### [address] Glucose [Mass/volume] in Ser um or PlasmaOrdered By: Antony Thompson on 03-01-2024 Glucose [Mass/Vol] 126 mg/dL High 70-100 [facility] Comment on above: ADA recommended refe rence rangeRandom Glucose Reference Range is dependent on time and content of last meal. Glucose of more than 200 mg/dL in a nonstressed, ambulatory subject supports the diagnosis of Diabetes Mellitus. Result Comment: [place] om Glucose Reference Range is dependent on time and content of last meal. Glucose of more than 200 mg/dL in a nonstressed, ambulatory subject supports the diagnosis of Diabetes Mellitus. ADA recommended reference range Performed By: #### V ANCP #### [place] [address] [place] Hematocrit [Volume Fraction] of Blood by Automated countOrdered By: Antony Thompson on 03-01-2024 Hematocrit (Bld) [Volume fraction] 43.7 % Normal 38.8-50.0 [facility] Comment on above: Performed By: #### V ANCP #### [address] [place] [address] [place] Hemoglobin [Mass/volume] in BloodOrdered By: Antony Thompson on 03-01-2024 Hemoglobin (Bld) [Mass/Vol] 14.8 g/dL Normal 13.0-17.0 [facility] Comment on above: Performed By: #### V ANCP #### [address] Hemogram CBC Without Diffon 03-01-2024 Mean Corpuscular HGB Conc 33.9 g/dL Normal 32.5-35.6 [facility] Comment on above: Performed By: #### V ANCP #### [address] WBC (Bld) [#/Vol] 19.5 10*3/uL High 4.1-10.5 [facility] Comment on above: Performed By: #### V ANCP #### [address] Leukocytes [#/volume] correc isa for nucleated erythrocytes in Blood by Automated counOrdered By: Antony Thompson on 03-01-2024 WBC corrected for nucl RBC Auto (Bld) [#/Vol] 19.5 10*3/uL High 4.1-10.5 [facility] MCH [Entitic mass] by Automa isa countOrdered By: Antony Thompson on 03-01-2024 MCH (RBC) [Entitic mass] 29.9 pg Normal 27.5-35.2 [facility] Comment on above: Performed By: #### V ANCP #### [address] MCHC Auto (RBC) [Mass/Vol]Or dered By: Antony Thompson on 03-01-2024 MCHC (RBC) [Mass/Vol] 33.9 g/dL 32.5-35.6 [facility] MCV [Entitic volume] by Auto mated countOrdered By: Antony Thompson on 03-01-2024 MCV (RBC) [Entitic vol] 88.1 fL Normal 83.5-101 [facility] Comment on above: Performed By: #### V ANCP #### [facility] [address] [place] [address] Magnesium [Mass/volume] in S flor or PlasmaOrdered By: Antony Thompson on 03-01-2024 Magnesium [Mass/Vol] 1.9 mg/dL Normal 1.9-2.7 [facility] Comment on above: Result Comment: PERF ORMED BY: [place] [address] PATHOLOGIST IN STORE MARKETER WILLI VILLEDA M.D. Performed By: #### V ANCP #### [address] No Panel InformationOrdered By: Antony Thompson on 03-01-2024 Estimated GFR (CKD-EPI) > 60.0 mL/Min [facility] Creatinine Clearance (Chem 82.82 [facility] Platelet mean volume [Entiti c volume] in Blood by Automated countOrdered By: Antony Thompson on 03-01-2024 Platelet mean volume (Bld) [Entitic vol] 7.2 fL Normal 6.6-10.1 [facility] Comment on above: Result Comment: PERF ORMED BY: [place] [address] PATHOLOGIST IN STORE MARKETER WILLI VILLEDA M.D. Performed By: #### V ANCP #### [facility] [address] [place] [address] [place] Platelets [#/volume] in Bloo d by Automated countOrdered By: Antony Thompson on 03-01-2024 Platelets (Bld) [#/Vol] 223 10*3/uL Normal 150-450 [facility] Comment on above: Performed By: #### V ANCP #### [address] Potassium [Moles/volume] in Serum or PlasmaOrdered By: Antony Thompson on 03-01-2024 Potassium [Moles/Vol] 4.6 mmol/L Normal 3.5-5.1 [facility] Comment on above: Performed By: #### V ANCP #### [address] Serum or plasma anion gap de terminationOrdered By: Antony Thompson on 03-01-2024 Anion gap [Moles/Vol] 11.8 mmol/L Normal 6.0-15.0 [facility] Comment on above: Performed By: #### V ANCP #### [address] Sodium [Moles/volume] in Ser um or PlasmaOrdered By: Antony Thompson on 03-01-2024 Sodium [Moles/Vol] 136 mmol/L Normal 136-145 [facility] Comment on above: Performed By: #### V ANCP #### [address] Urea nitrogen [Mass/volume] in Serum or PlasmaOrdered By: Antony Thompson on 03-01-2024 Urea nitrogen [Mass/Vol] 14 mg/dL Normal 7-25 [facility] Comment on above: Performed By: #### V ANCP #### [place] [address] [place] Aerobic Cultureon 02-29-2024 Aerobic Culture Comment Abscess 3 No Growth 2 Days Comment Abscess 3 No Anaerobes Isolated 3 Days Comment Abscess 3 Gram Stain Result 2+ White Blood Cells No Bacteria Seen PERFORMED BY: [place] [address] PATHOLOGIST IN STORE MARKETER WILLI VILLEDA M.D. Normal [facility] Comment on above: Performed By: #### V ANCP #### [place] [address] [place] Aerobic Culture Comment Abscess 2 No Growth 2 Days Comment Abscess 2 No Anaerobes Isolated 3 Days Comment Abscess 2 Gram Stain Result 2+ White Blood Cells No Bacteria Seen PERFORMED BY: [place] [address] PATHOLOGIST IN STORE MARKETER WILLI VILLEDA M.D. Normal [facility] Comment on above: Performed By: #### V ANCP #### [address] Aerobic Culture Comment Abscess 1 No Growth 2 Days Comment Abscess 1 No Anaerobes Isolated 3 Days Comment Abscess 1 Gram Stain Result 2+ White Blood Cells No Bacteria Seen PERFORMED BY: [place] [address] PATHOLOGIST IN STORE MARKETER WILLI VILLEDA M.D. Normal [facility] Comment on above: Performed By: #### V ANCP #### [address] ECG 12 lead ECGon 02-29-2024 ECG 12 lead ECG [facility] [place] [address] [place] [address] Electrocardiograph Report Signed Patient: Mily Ibrahim MR#: [id number] : 1955 Acct:[id number] Age/Sex: 68 / M ADM Date: 02/27/24 Loc: Room: [address] [place] [address] Type: ADM IN Attending Dr: Antony Thompson [...] change was found Confirmed by KENNEDY EATON [facility], [place] (137) on 02/29/2024 4:25:50 PM Referred By: Electronically Signed By: YULIANA BENAVIDES MD FAC Transcribed By: MUS Signed By Yuliana Benavides MD, FACC 02/29/24 0493 Normal [facility] Gram stain for investigation of transfusion reactionOrdered By: Enoch Han on 02-29-2024 Microscopic observation Gram stain Nom (Unsp spec) No Anaerobes Isolated 1 Day [facility] Microscopic observation Gram stain Nom (Unsp spec) No Anaerobes Isolated 3 Days [facility] Microscopic observation Gram stain Nom (Unsp spec) No Anaerobes Isolated 1 Day [facility] Microscopic observation Gram stain Nom (Unsp spec) No Anaerobes Isolated 3 Days [facility] Microscopic observation Gram stain Nom (Unsp spec) No Anaerobes Isolated 1 Day [facility] Microscopic observation Gram stain Nom (Unsp spec) No Anaerobes Isolated 3 Days [facility] Andrea 02-29-2024 L Specimen: [id number] Received: 03/01/24 Status: KAEL Jamie Num: [id number] Spec Type: Surgical Subm Dr: Enoch Han DO Tissues: A Abscess (RT ELBOW, CORE) B Abscess (RT ELBOW CORE #2) C Abscess (RT ELBOW CORE #3) D Abscess (RT ELBOW CORE #4) Procedures: HE/4, Gross/Micro L3/4, AE1-AE3, BCL-2, BCL-6, CD10, CD20, CD3, CD5, Ki-67, PAX5 Age/ Patient Sex Location Account Attending Physician Mily Ibrahim 68/M 4N [id number] Antony Thompson DO SPEC NUM: [id number] RECD: 03/01/24 STATUS: KAEL [place] NUM: [id number] [place]: 02/29/[address]: Enoch Han DO ENTERED: 03/01/[address] [facility] [address]: SPEC TYPE: Surgical DEPT: S ORDERED: HE/4, Gross/Micro L3/4, AE1-AE3, BCL-2, BCL-6, CD10, CD20, CD3, CD5, Ki-67, PAX5 ORDERED: HE/4, Gross/Micro L3/4, AE1-AE3, BCL-2, BCL-6, CD10, CD20, CD3, CD5, Ki-67, PAX5 Supplemental Report Addendum 1 Entered: 03/22/24-0638 This case was sent to [facility] for consultation. Their diagnosis is as follows: A?C. Abscess, right elbow, biopsy: Atypical lymphoid infiltrate, morphologically similar to that seen in part D. D. 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 Please see attached consultation report from [facility] for diagnostic details. Addendum Signed (signature on file) Melany Gonzalez MD 03/22/24 1749 Specimen: [id number] Received: 03/01/24 Status: KAEL Jamie Num: [id number] Spec Type: Surgical Subm Dr: Enoch Han DO Tissues: A Abscess (RT ELBOW, CORE) B Abscess (RT ELBOW CORE #2) C Abscess (RT ELBOW CORE #3) D Abscess (RT ELBOW CORE #4) Procedures: HE/4, Gross/Micro L3/4, AE1-AE3, BCL-2, BCL-6, CD10, CD20, CD3, CD5, Ki-67, PAX5 Patient: Mily Ibrahim [id number] (Continued) Specimen: [id number] Received: 03/01/24 (Continued) Signed (signature on file) Melany Gonzalez MD 03/06/24 1705 Specimen: [id number] Received: 03/01/24 Status: KAEL Moreland Num: [id number] Spec Type: Surgical Subm Dr: Enoch Han, Tissues: A Abscess (RT ELBOW, CORE) B Abscess (RT ELBOW CORE #2) C Abscess (RT ELBOW CORE #3) D Abscess (RT ELBOW CORE #4) Procedures: HE/4, Gross/Micro L3/4, AE1-AE3, BCL-2, BCL-6, CD10, CD20, CD3, CD5, Ki-67, PAX5 Patient: Mily Ibrahim [id number] (Continued) Specimen: [id number] Received: 03/01/24 (Continued) Pathological Diagnosis Preliminary report [...] surface and entirely submitted in C1. Specimen: [id number] Received: 03/01/24 Status: KAEL Moreland Num: [id number] Spec Type: Surgical Subm Dr: Enoch Han, DO Tissues: A Abscess (RT ELBOW, CORE) B Abscess (RT ELBOW CORE #2) C Abscess (RT ELBOW CORE #3) D Abscess (RT ELBOW CORE #4) Procedures: HE/4, Gross/Micro (more content not included)... Normal [facility] Serum or plasma trough vanco mycin levelOrdered By: Antony Thompson on 02-29-2024 Vancomycin trough [Mass/Vol] 11.4 ug/mL 10.0-20.0 [facility] Comment on above: Last dose: - Vancomycin [Mass/volume] in Serum or Plasma --peakOrdered By: Antony Thompson on 02-29-2024 Vancomycin peak [Mass/Vol] 30.5 ug/mL 20.0-40.0 [facility] Comment on above: Last dose: - Vancomycin,Peakon 02-29-2024 Vancomycin,Peak 30.5 ug/mL Normal 20.0-40.0 [facility] Comment on above: Order Comment: Comme nt ?DRAW 1 HOUR AFTER INFUSION COMPLETES Date of last dose?: 20240227 Time of last dose?: 2299 Result Comment: Last dose: - PERFORMED BY: [place] [address] PATHOLOGIST IN STORE MARKETER WILLI VILLEDA M.D. Performed By: #### V ANCP #### [facility] [address] [place] [address] Vancomycin,Troughon 02-29-20 24 Vancomycin,Trough 11.4 ug/mL Normal 10.0-20.0 [facility] Comment on above: Order Comment: Time of next dose? 2299 Date of last dose?: 20240227 Time of last dose?: 2299 Result Comment: Last dose: - PERFORMED BY: [place] [address] PATHOLOGIST IN STORE MARKETER WILLI VILLEDA M.D. Performed By: #### C UBLD #### [facility] [address] [place] [address] Activated partial thrombopla stin time (aPTT) in platelet poor plasma by coagulation aOrdered By: Antony Thompson on 02-28-2024 aPTT Coag (PPP) [Time] 31.3 s 25.1-36.5 [facility] Comment on above: A hematocrit value g reater than 55% may lead to inaccurate results in coagulation testing. Patients having hematocrit values >55% require a special collection tube for coagulation studies. Please contact the laboratory at [phone] for redraw instructions. Alanine aminotransferase [En zymatic activity/volume] in Serum or PlasmaOrdered By: Antony Thompson on 02-28-2024 ALT [Catalytic activity/Vol] 13 U/L Normal 7-52 [facility] Comment on above: Performed By: #### C UBLD #### [address] Albumin [Mass/volume] in Ser um or Plasma by Bromocresol green (BCG) dye binding methoOrdered By: Antony Thompson on 02-28-2024 Albumin BCG dye [Mass/Vol] 3.4 g/dL Low 3.5-5.7 [facility] Alkaline phosphatase [Enzyma tic activity/volume] in Serum or PlasmaOrdered By: Antony Thompson on 02-28-2024 ALP [Catalytic activity/Vol] 46 U/L Normal 34-104 [facility] Comment on above: Performed By: #### C UBLD #### [address] Aspartate aminotransferase [ Enzymatic activity/volume] in Serum or PlasmaOrdered By: Antony Thompson on 02-28-2024 AST [Catalytic activity/Vol] 13 U/L Normal 13-39 [facility] Comment on above: Performed By: #### C UBLD #### [address] Automated basophil %Ordered By: Antony Thompson on 02-28-2024 Basophils/100 WBC (Bld) 0.3 % Normal . [facility] Comment on above: Performed By: #### C UBLD #### [address] Automated basophil countOrde red By: Antony Thompson on 02-28-2024 Basophils (Bld) [#/Vol] 0.0 10*3/uL Normal 0.0-0.2 [facility] Comment on above: Result Comment: PERF ORMED BY: [place] [address] PATHOLOGIST IN STORE MARKETER WILLI VILLEDA M.D. Performed By: #### C UBLD #### [address] Automated blood monocyte cou ntOrdered By: Antony Thompson on 02-28-2024 Monocytes (Bld) [#/Vol] 1.3 10*3/uL High 0.0-0.8 [facility] Comment on above: Performed By: #### C UBLD #### [address] Automated eosinophil %Ordere d By: Antony Thompson on 02-28-2024 Eosinophils/100 WBC (Bld) 1.4 % Normal . [facility] Comment on above: Performed By: #### C UBLD #### [address] Automated eosinophil countOr dered By: Antony Thompson on 02-28-2024 Eosinophils (Bld) [#/Vol] 0.2 10*3/uL Normal 0.0-0.45 [facility] Comment on above: Performed By: #### C UBLD #### [address] Automated monocyte %Ordered By: Antony Thompson on 02-28-2024 Monocytes/100 WBC (Bld) 8.9 % Normal . [facility] Comment on above: Performed By: #### C UBLD #### [address] Automated neutrophil %Ordere d By: Antony Thompson on 02-28-2024 Neutrophils/100 WBC (Bld) 64.2 % Normal . [facility] Comment on above: Performed By: #### C UBLD #### [address] Bilirubin.total [Mass/volume ] in Serum or PlasmaOrdered By: Antony Thompson on 02-28-2024 Bilirubin [Mass/Vol] 0.7 mg/dL Normal 0.3-1.0 [facility] Comment on above: Performed By: #### C UBLD #### [address] humerus RT w conon 2023 CT humerus RT w con [facility] [place] [address] [place] [address] CT Scan Report Signed Patient: Mily Ibrahim MR#: [id number] : 1955 Acct:[id number] Age/Sex: 68 / M ADM Date: 02/27/24 Loc: Room: 7A1355-4 Type: ADM IN Attending Dr: Antony Thompson DO Copies to: Antony Thompson DO Ordering Provider: Antony Thompson [...] Ervin Coon M.D.02/28/2024 12:48 PM Dictation Location: [place] [address] Transcribed By: [facility] 02/28/24 1248 Dictated By: Evrin Coon DO 02/28/24 1240 Signed By: 02/28/24 1248 Normal [facility] Coagulation Profileon 2023 aPTT Coag (Bld) [Time] 31.3 s Normal 25.1-36.5 [facility] Comment on above: Result Comment: A he matocrit value greater than 55% may lead to inaccurate results in coagulation testing. Patients having hematocrit values >55% require a special collection tube for coagulation studies. Please contact the laboratory at [phone] for redraw instructions. PERFORMED BY: [place] [address] PATHOLOGIST IN STORE MARKETER WILLI VILLEDA M.D. Performed By: #### P P #### [address] Complete Blood Count Auto Di ffon 02-28-2024 Erythrocyte distribution width (RBC) [Ratio] 13.5 % Normal 12.0-14.8 [facility] Comment on above: Performed By: #### C UBLD #### [address] Hematocrit (Bld) [Volume fraction] 42.4 % Normal 38.8-50.0 [facility] Comment on above: Performed By: #### C UBLD #### [address] Hemoglobin (Bld) [Mass/Vol] 14.4 g/dL Normal 13.0-17.0 [facility] Comment on above: Performed By: #### C UBLD #### [address] MCH (RBC) [Entitic mass] 30.1 pg Normal 27.5-35.2 [facility] Comment on above: Performed By: #### C UBLD #### [address] MCV (RBC) [Entitic vol] 88.4 fL Normal 83.5-101 [facility] Comment on above: Performed By: #### C UBLD #### [address] Mean Corpuscular HGB Conc 34.0 g/dL Normal 32.5-35.6 [facility] Comment on above: Performed By: #### C UBLD #### [address] NRBC% 0.1 /100{WBC} Normal 0-0.5 [facility] Comment on above: Performed By: #### C UBLD #### [address] Platelet mean volume (Bld) [Entitic vol] 6.9 fL Normal 6.6-10.1 [facility] Comment on above: Performed By: #### C UBLD #### [place] [address] [place] Platelets (Bld) [#/Vol] 191 10*3/uL Normal 150-450 [facility] Comment on above: Performed By: #### C UBLD #### [place] [address] [place] RBC (Bld) [#/Vol] 4.79 10*6/uL Normal 3.90-5.60 [facility] Comment on above: Performed By: #### C UBLD #### [address] Comprehensive Metabolic Pane andrea 02-28-2024 Albumin [Mass/Vol] 3.4 g/dL Low 3.5-5.7 [facility] Comment on above: Performed By: #### C UBLD #### [address] Anion gap [Moles/Vol] 11.3 mmol/L Normal 6.0-15.0 [facility] Comment on above: Performed By: #### C UBLD #### [address] Calcium [Mass/Vol] 8.4 mg/dL Low 8.6-10.3 [facility] Comment on above: Performed By: #### C UBLD #### [place] [address] [place] Chloride [Moles/Vol] 105 mmol/L Normal 98-107 [facility] Comment on above: Performed By: #### C UBLD #### [place] [address] [place] CO2 [Moles/Vol] 28.4 mmol/L Normal 21.0-31.0 [facility] Comment on above: Performed By: #### C UBLD #### [place] [address] [place] Creatinine [Mass/Vol] 1.07 mg/dL Normal 0.70-1.30 [facility] Comment on above: Performed By: #### C UBLD #### [place] [address] [place] Creatinine Clr Calc Pharmacy 79.58 Normal [facility] Comment on above: Performed By: #### C UBLD #### [place] [address] [place] GFR/1.73 sq M.predicted MDRD (S/P/Bld) [Vol rate/Area] mL/min/{1.73_m2} Normal [facility] Comment on above: Performed By: #### C UBLD #### [place] [address] [place] Glucose [Mass/Vol] 92 mg/dL Normal 70-100 [facility] Comment on above: Result Comment: [place] Glucose Reference Range is dependent on time and content of last meal. Glucose of more than 200 mg/dL in a nonstressed, ambulatory subject supports the diagnosis of Diabetes Mellitus. ADA recommended reference range Performed By: #### C UBLD #### [place] [address] [place] Potassium [Moles/Vol] 4.7 mmol/L Normal 3.5-5.1 [facility] Comment on above: Performed By: #### C UBLD #### [place] [address] [place] Sodium [Moles/Vol] 140 mmol/L Normal 136-145 [facility] Comment on above: Performed By: #### C UBLD #### [facility] [address] [place] [id number] [facility] Urea nitrogen [Mass/Vol] 13 mg/dL Normal 7-25 [facility] Comment on above: Performed By: #### C UBLD #### [facility] [address] [place] [id number] [facility] Family Medicine Office/Clini c Noteon 02-28-2024 Family Medicine Office/Clinic Note Family Medicine Office/Clinic Note [facility] Staff Mily is a 68 year old male presenting with lump on arm He went to [facility] on Tuesday Morning 02/26/24 Txd [...] be muscle, nerve involvement. Called ER at [facility] they will do further work up. [...] cap(s), Oral, Daily, 11 refills Multi Vitamin+ [place] [facility] 911 cpap machine supplies: head gear, mask, tubing [...] virus vaccine, inactivated 05/14/2022 Recorded SARS-CoV-2 (COVID-19) [id number] 05/14/2022 Recorded SARSCoV2 mRNA(gatosuwlg-qmpj-mxhqqe ) vac 12/07/2021 Recorded SARS-CoV-2 (COVID-19) mRNA [...] called the ER with the story. Normal [facility] Comment on above: Result Comment: Elec tronically Signed By: Juan J EATON, Burton Doe\.br\Date and Time Signed: 02/28/24 12:58 EDT INR in Platelet poor plasma by Coagulation assayOrdered By: Antony Thompson on 02-28-2024 INR Coag (PPP) [Relative time] 1.1 {INR} [facility] Comment on above: INR Therapeutic Rang e [...] 4.5 Performed By: #### P P #### [place] [address] [place] Leukocytes [#/volume] in Blo od by Automated countOrdered By: Antony Thompson on 02-28-2024 WBC (Bld) [#/Vol] 14.5 10*3/uL High 4.1-10.5 [facility] Comment on above: Performed By: #### C UBLD #### [place] [address] [place] Lymphocytes [#/volume] in Bl ood by Automated countOrdered By: Antony Thompson on 02-28-2024 Lymphocytes (Bld) [#/Vol] 3.7 10*3/uL Normal 1.00-4.8 [facility] Comment on above: Performed By: #### C UBLD #### [place] [address] [place] Lymphocytes/100 leukocytes i n Blood by Automated countOrdered By: Antony Thompson on 02-28-2024 Lymphocytes/100 WBC (Bld) 25.2 % Normal . [facility] Comment on above: Performed By: #### C UBLD #### [address] MR humerus RT wo/w conon MR humerus RT wo/w con [facility] [place] [address] [place] [address] MRI Report Signed Patient: Mily Ibrahim MR#: [id number] : 1955 Acct:[id number] Age/Sex: 68 / M ADM Date: 02/27/24 Loc: Room: [address] [place] [address] Type: ADM IN Attending Dr: Antony Thompson [...] Ervin Coon M.D.02/28/2024 12:53 PM Dictation Location: [place] [address] Transcribed By: [facility] 02/28/24 1253 Dictated By: Ervin Coon DO 02/28/24 1248 Signed By: 02/28/24 1253 Normal [facility] Magnesiumon 02-28-2024 Magnesium [Mass/Vol] 2.0 mg/dL Normal 1.9-2.7 [facility] Comment on above: Result Comment: PERF ORMED BY: [place] [address] PATHOLOGIST IN STORE MARKETER WILLI VILLEDA M.D. Performed By: #### C UBLD #### [facility] [address] [place] [address] [place] Neutrophils [#/volume] in Bl ood by Automated countOrdered By: Antony Thompson on 02-28-2024 Neutrophils (Bld) [#/Vol] 9.3 10*3/uL High 1.8-7.7 [facility] Comment on above: Performed By: #### C UBLD #### [facility] [address] [place] [address] [place] Nucleated erythrocytes [Pres ence] in Blood by Automated countOrdered By: Antony Thompson on 02-28-2024 Nucleated RBC Auto Ql (Bld) 0.1 /100{WBC} 0-0.5 [facility] Protein [Mass/volume] in Ser um or PlasmaOrdered By: Antony Thompson on 02-28-2024 Protein [Mass/Vol] 5.6 g/dL Low 6.4-8.9 [facility] Comment on above: Performed By: #### C UBLD #### [address] Prothrombin time (PT)Ordered By: Antony Thompson on 02-28-2024 PT Coag (PPP) [Time] 13.1 s High 9.0-12.9 [facility] Comment on above: A hematocrit value g reater than 55% may lead to inaccurate results in coagulation testing. Patients having hematocrit values >55% require a special collection tube for coagulation studies. Please contact the laboratory at [phone] for redraw instructions. Result Comment: A he matocrit value greater than 55% may lead to inaccurate results in coagulation testing. Patients having hematocrit values >55% require a special collection tube for coagulation studies. Please contact the laboratory at [phone] for redraw instructions. Performed By: #### P P #### [address] Serum globulin measurement b y calculation (mass/volume)Ordered By: Antony Thompson on 02-28-2024 Globulin (S) [Mass/Vol] 2.2 g/dL [facility] Comment on above: Performed By: #### C UBLD #### [address] Serum or plasma albumin/glob ulin mass ratioOrdered By: Antony Thompson on 02-28-2024 Albumin/Globulin [Mass ratio] 1.5 {ratio} [facility] Comment on above: Performed By: #### C UBLD #### [address] XR elbow RT 2Von 02-28-2024 XR elbow RT 2V [facility] [place] [address] [place] [address] XRay Report Signed Patient: Mily Ibrahim MR#: [id number] : 1955 Acct:[id number] Age/Sex: 68 / M ADM Date: 02/27/24 Loc: Room: 3K1100-1 Type: ADM IN Attending Dr: Antony Thompson [...] Ronaldo Kenyon M.D.02/28/2024 4:12 PM Dictation Location: [place] [address] Transcribed By: [facility] 02/28/24 1612 Dictated By: Ronaldo Kenyon II, MD 02/28/24 1609 Signed By: 02/28/24 1612 Normal [facility] Ambulatory Visit Summaryon 0 02-27-2024 Ambulatory Visit Summary Ambulatory Visit Summary MILY IBRAHIM :1955 Visit Date:02/27/2024 Ambulatory Visit Instructions Your Diagnosis Cellulitis of right elbow Non-smoker BMI 29.0-29.9,adult Your Care Team Attending Physician - Qiana Gayle Primary Care Physician - Qiana Gayle This Is Your Medications List Misc [...] APRN, Marika Mao Where: [facility] [place] [id number]- Medications What How Much When Why Instructions [...] for choosing us for your care. Normal [facility] Bacterial blood cultureOrder ed By: Antony Thompson on 02-27-2024 Bacteria identified Cx Nom (Bld) NO GROWTH 5 DAYS [facility] Blood Cultureon 02-27-2024 Bacteria identified Cx Nom (Bld) NO GROWTH 5 DAYS PERFORMED BY: [place] [id number] PATHOLOGIST IN STORE MARKETER WILLI VILLEDA M.D. Normal [facility] Comment on above: Performed By: #### C UBLD #### [address] Family Medicine Office/Clini c Noteon 02-16-2024 Family Medicine Office/Clinic Note Family Medicine Office/Clinic Note HPI Staff Mily is a 68 year old male presenting for acute visit Acute: lump right arm/elbow, red and swollen, sometimes warm to the touch, He was working on the [employer] and pushed on the area pretty hard [...] day(s), # 40 cap(s), Refills(s) 0, Pharmacy: [facility], 185, cm, 02/16/24 10:23:00 EDT, Height/Length Dosing, 100.5, kg, 02/16/24 10:23:00 EDT, Weight Dosing methylPREDNISolone, = 1 packet(s), Oral, As Directed, as directed on package labeling, X 6 day(s), # 21 tab(s), Refills(s) 0, Pharmacy: [facility], 185, cm, 02/16/24 10:23:00 EDT, Height/Length Dosing, 100.5, kg, 02/16/24 10:23:00 EDT, Weight Dosing 2. BMI 29.0-29.9,adult (Z68.29: Body mass index [BMI] 29.0-29.9, adult) bmi education Ordered: cephalexin, 500 mg = 1 cap(s), Oral, QID, X 10 day(s), # 40 cap(s), Refills(s) 0, Pharmacy: [facility], 185, cm, 02/16/24 10:23:00 EDT, Height/Length Dosing, 100.5, kg, 02/16/24 10:23:00 EDT, Weight Dosing methylPREDNISolone, = 1 packet(s), Oral, As Directed, as directed on package labeling, X 6 day(s), # 21 tab(s), Refills(s) 0, Pharmacy: [facility], 185, cm, 02/16/24 10:23:00 EDT, Height/Length Dosing, 100.5, kg, 02/16/24 10:23:00 EDT, Weight Dosing 3. Over weight (E66.3: Overweight) Ordered: cephalexin, 500 mg = 1 cap(s), Oral, QID, X 10 day(s), # 40 cap(s), Refills(s) 0, Pharmacy: [facility], 185, cm, 02/16/24 10:23:00 EDT, Height/Length Dosing, 100.5, kg, 02/16/24 10:23:00 EDT, Weight Dosing methylPREDNISolone, = 1 packet(s), Oral, As Directed, as directed on package labeling, X 6 day(s), # 21 tab(s), Refills(s) 0, Pharmacy: [facility], 185, cm, 02/16/24 10:23:00 EDT, Height/Length Dosing, 100.5, kg, 02/16/24 10:23:00 EDT, Weight Dosing 4. Nonsmoker (Z78.9: Other specified health status) continue not smoking Ordered: cephalexin, 500 mg = 1 cap(s), Oral, QID, X 10 day(s), # 40 cap(s), Refills(s) 0, Pharmacy: [facility], 185, cm, 02/16/24 10:23:00 EDT, Height/Length Dosing, 100.5, kg, 02/16/24 10:23:00 EDT, Weight Dosing methylPREDNISolone, = 1 packet(s), Oral, As Directed, as directed on package labeling, X 6 day(s), # 21 tab(s), Refills(s) 0, Pharmacy: [facility], 185, cm, 02/16/24 10:23:00 EDT, Height/Length [...] 1 packet(s (more content not included)... Normal [facility] Comment on above: Result Comment: Elec tronically Signed By: Qiana Gayle\.br\Date and Time Signed: 02/16/24 10:58 EDT RAD - MRI Reporton RAD - MRI Report [id number] Normal [facility] ISTAT XRay CREon 01-09-2024 ISTAT GFR > 60.0 Normal [facility] Comment on above: Result Comment: PERF ORMED BY: [place] [address] PATHOLOGIST IN STORE MARKETER WILLI VILLEDA M.D. Performed By: #### C UBLD #### [address] MR prostate wo/w conon 01-08 MR prostate wo/w con [facility] [place] [address] [place] [address] MRI Report Signed Patient: Mily Ibrahim MR#: [id number] : 1955 Acct:[id number] Age/Sex: 68 / M ADM Date: 01/09/24 Loc: MR Room: Type: [facility] Attending Dr: Marika JURADO Copies to: RHIANNON [...] nonspecific. Impression dictated by: Price Barker Jr., D.O.01/09/2024 3:14 PM Dictation Location: [place] [address] Transcribed By: [facility] 01/09/24 1514 Dictated By: Price Barker Jr, DO 01/09/24 1509 Signed By: 01/09/24 1514 Normal [facility] No Panel InformationOrdered By: Marika Fisher on 01-09-2024 Bedside Estimated GFR (eGFR) > 60.0 [facility] Whole blood creatinine measu rementOrdered By: Marika Fisher on 01-09-2024 Creatinine [Mass/Vol] 0.9 mg/dL Normal 0.6-1.3 [facility] Comment on above: ER/ESD physician is notified/shown all ISTAT results.Critical values may be confirmed by laboratory testing ifdeemed necessary by ER attending doctor. Result Comment: ER/E SD physician is notified/shown all ISTAT results. Critical values may be confirmed by laboratory testing if deemed necessary by ER attending doctor. 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 Talha [facility] Patient Educationon 11-29-19 Patient Education Oncology Prostate Cancer Screening Prostate [...] Where to find more information ? The [place] [employer]: www.cancer.org ? [place] [employer]: www.auanet.org Contact a health care [...] flu (more content not included)... Normal [facility] Urology Office/Clinic Noteon 11-29-2023 Urology Office/Clinic Note [...] with voice recognition artificial intelligence software, specifically [employer] and or [employer]. Substitutions may have occurred due to the [...] to proceed with MRI. Order faxed to [facility]. Patient instructed that violence will take care of precertification process through insurance and will call him to schedule. -Obtain MRI of prostate. If suspicious lesion is identified, will move forward with prostate biopsy. If negative, will recheck PSA in 6 months. Ordered: MRI Pelvis (Soft Tissue) w/ + w/o contrast Urnls Dip Stick Auto w/o Microscopy POC 51469 2. BPH with urinary obstruction (N40.1: Benign [...] doses, call for refills. Prior cysto by DLS 2019 -moderate bilobar hypertrophy, 1+ trabeculation. Volume [...] s/p cysto/UD Jun 2020 dilated to 24 dominican. [4] Denies any significant change in stream [...] Education Prostate Canc (more content not included)... Normal [facility] Comment on above: Result Comment: Elec tronically Signed By: MERRY Fisher APRN, Marika Mao\.br\Date and Time Signed: 11/29/23 08:42 EDT Lab Reportson 11-21-2023 Lab Reports [id number] Normal [facility] Ambulatory Visit Summaryon 0 10-26-2023 Ambulatory Visit Summary MILY IBRAHIM Hen[place] :1955 Visit Date:10/26/2023 Ambulatory Visit Instructions Your Diagnosis BMI 29.0-29.9,adult Your Care Team Attending Physician - Qiana Gayle Primary Care Physician - Qiana Gayle This Is Your Medications List Misc Prescription ([facility] 911 cpap machine supplies: head gear, mask, tubing [...] APRN, Marika Mao Where: [facility] Family Medicine Office/Clini c Noteon 10-26-2023 Family [...] day(s), 14 tab(s), Refill(s) 0, [facility] #[id number], 185, cm, 10/26/23 8:46:00 EDT, Height/Length Dosing, 100.7, kg, 10/26/23 8:38:00 EDT, Weight Dosing methylPREDNISolone, = 1 packet(s), Oral, Once, as directed on package labeling, # 21 tab(s), Refills(s) 0, Pharmacy: [facility] #[id number], 185, cm, 10/26/23 8:46:00 EDT, Height/Length Dosing, [...] dosepak, 1 packet(s), Oral, Once Multi Vitamin+ [facility] [facility] 911 cpap machine supplies: head gear, mask, tubing and filters, See Instructions, 1 refills Allergies No Known Medication Allergies Social History Tobacco - Denies Tobacco Use, 06/02/2020 Never (less than 100 in lifetime) Tobacco Use:. Never Smokeless Tobacco Use:. Household tobacco concerns: No., 10/26/2023 Family History Prostate cancer: Grandparent. Throat cancer: Father. Immunizations Vaccine Date Status influenza virus vaccine, inactivated 05/14/2022 Recorded SARS-CoV-2 (COVID-19) mRNAMUL.ORD![id number] 05/14/2022 Recorded SARSCoV2 mRNA(lvgzmxwvm-ptdw-sxiwno ) vac 12/07/2021 Recorded SARS-CoV-2 (COVID-19) mRNA BNT-162b2 vax 05/10/2021 Recorded SARS-CoV-2 (COVID-19) Ad26 vaccine 10/18/2020 Recorded SARS-CoV-2 (COVID-19) mRNA BNT-162b2 vax 09/27/2020 Recorded SARS-CoV-2 (COVID-19) Ad26 vaccine 09/02/2020 Recorded pneumococcal 13-valent vaccine 06/05/2020 Recorded influenza virus vaccine, inactivated 06/05/2020 Recorded Normal [facility] Comment on above: Result Comment: Elec tronically Signed By: Qiana Gayle\.br\Date and Time Signed: 10/26/23 09:05 EDT Family Medicine Office/Clini c Noteon 08-12-2023 Family Medicine Office/Clinic Note Chief Complaint cold symptoms HPI Staff Patient of Lidia Andre NP presents with a productive cough. complaints [...] day(s), # 21 cap(s), Refills(s) 0, Pharmacy: [facility] #[id number], 185, cm, 07/20/23 17:39:00 EST, Height/Length Dosing, 98.6, kg, 07/20/23 17:39:00 EST, Weight Dosing doxycycline, 100 mg = 1 cap(s), Oral, q12hr, Take one capsule by mouth every twelve hours for ten days, X 7 day(s), # 14 cap(s), Refills(s) 0, [facility]acy: [facility] #[id number], 185, cm, 07/20/23 17:39:00 EST, Height/Length Dosing, [...] in the office Ordered: Rapid COVID POC 25569 Follow-up No qualifying data available Patient Education Cough, Adult, Bmlb-jj-Eolv Problem List/Past Medical History Ongoing BPH with [...] Smokeless Tobacco (more content not included)... Normal [facility] Comment on above: Result Comment: Shelly dick Signed By: ADRIANA BEY CNP.hector\Date and Time Signed: 08/12/23 08:10 EST Patient Educationon 08-12-19 24 Patient Education ENT Cough, Adult A cough [...] these instructions at home: Medicines ? Take frbq-jum-ygcolkq and prescription medicines only as told by [...] things can cause a cough. ? Take adev-azj-urnctvi and prescription medicines only as told by [...] provider. Document Revised: 09/05/2020 Document Reviewed: 08/06/2019 ImmuVen Patient Education ? 2022 [employer]. [facility] Ambulatory Visit Summaryon 0 08-11-2023 Ambulatory Visit Summary MILY IBRAHIM :1955 Visit Date:08/11/2023 Ambulatory Visit Instructions Your Diagnosis Cough URI due to influenza Nasal congestion Your Care Team Attending Physician - ADRIANA BEY CNP Primary Care Physician - Qiana Gayle This Is [facility] Medications List [facility] Prescription ([facility] cpap machine supplies: head gear, [...] EATON, Kassidy Merchant Where: [facility] Family Medicine Office/Clini c Noteon 07-21-2023 Family [...] TID, 15 gram, Refill(s) 0, [facility] #[id number], 185, cm, 07/20/23 17:39:00 EST, Height/Length Dosing, 98.6, kg, 07/20/23 17:39:00 EST, Weight Dosing 4. BMI 28.0-28.9,adult (Z68.28: Body mass index [BMI] 28.0-28.9, adult) bmi eductaion complete Ordered: mupirocin topical, 1 dylan, Topical, TID, 15 gram, Refill(s) 0, [facility] #[id number], 185, cm, 07/20/23 17:39:00 EST, Height/Length Dosing, 98.6, kg, 07/20/23 17:39:00 EST, Weight Dosing Orders: amoxicillin-clavulanate, 1 tab(s), Oral, q12hr for 7 day(s), 14 tab(s), Refill(s) 0, [facility] #[id number], 185, cm, 07/20/23 17:39:00 EST, Height/Length Dosing, 98.6, kg, 07/20/23 17:39:00 EST, Weight Dosing methylPREDNISolone, = 1 packet(s), Oral, Once, as directed on package labeling, # 21 tab(s), Refills(s) 0, Pharmacy: [facility] #[id number], 185, cm, 07/20/23 17:39:00 EST, Height/Length Dosing, [...] virus vaccine, inactivated 05/14/2022 Recorded SARS-CoV-2 (COVID-19) mRNAMUL.ORD![id number] 05/14/2022 Recorded SARSCoV2 mRNA(zgfjbcopp-gxhw-dfhpek ) vac 12/07/2021 Recorded SARS-CoV-2 (COVID-19) mRNA BNT-162b2 vax 05/10/2021 Recorded SARS-CoV-2 (COVID-19) Ad26 vacc (more content not included)... [facility] Comment on above: Result Comment: Elec tronically Signed By: Qiana Gayle\.br\Date and Time Signed: 07/21/23 15:18 EST Ambulatory Visit Summaryon 1 09-20-2022 Ambulatory Visit Summary MILY IBRAHIM :1955 Visit Date:07/20/2023 Ambulatory Visit Instructions Your Diagnosis BMI 28.0-28.9,adult Non-smoker Your Care Team Attending Physician - Qiana Gayle Primary Care Physician - Qiana Gayle This Is Your Medications List [facility] Pres[facility] ([facility] [facility] 911 cpap machine supplies: head gear, mask, tubing [...] EATON, Kassidy Merchant Where: [facility] Ambulatory Visit Summaryon 1 09-01-2022 Ambulatory Visit Summary MILY IBRAHIM Hen[place] :1955 Visit Date:07/01/2023 Ambulatory Visit Instructions Your Diagnosis Sinusitis Bronchitis BMI 29.0-29.9,adult Non-smoker Your Care Team Attending Physician - Qiana Gayle Primary Care Physician - Qiana Gayle This Is Your Medications List [facility] Prescription ([facility] cpap machine supplies: head gear, [...] EATON, Kassidy Merchant Where: [facility] Family Medicine Office/Clini c Noteon 07-01-2023 Family [...] day(s), # 14 tab(s), Refills(s) 0, [facility]acy: [facility] #[id number], 185, cm, 02/09/23 16:48:00 EDT, Height/Length Dosing, 101, kg, 07/01/23 15:03:00 EST, Weight Dosing benzonatate, 200 mg = 1 cap(s), Oral, TID, X 7 day(s), # 21 cap(s), Refills(s) 0, Pharmacy: [facility] #[id number], 185, cm, 02/09/23 16:48:00 EDT, Height/Length Dosing, 101, kg, 07/01/23 15:03:00 EST, Weight Dosing methylPREDNISolone, = 1 packet(s), Oral, As Directed, as directed on package labeling, X 6 day(s), # 21 tab(s), Refills(s) 0, Pharmacy: [facility] #[id number], 185, cm, 02/09/23 16:48:00 EDT, Height/Length Dosing, 101, kg, 07/01/23 15:03:00 EST, Weight Dosing 2. Bronchitis (J40: Bronchitis, not specified as acute or chronic) medrol dose pack and tessalon pearls sent to pharmacy Ordered: amoxicillin-clavulanate, = 1 tab(s), Oral, q12hr, X 7 day(s), # 14 tab(s), Refills(s) 0, Pharmacy: [facility] #[id number], 185, cm, 02/09/23 16:48:00 EDT, Height/Length Dosing, 101, kg, 07/01/23 15:03:00 EST, Weight Dosing benzonatate, 200 mg = 1 cap(s), Oral, TID, X 7 day(s), # 21 cap(s), Refills(s) 0, Pharmacy: [facility] #[id number], 185, cm, 02/09/23 16:48:00 EDT, Height/Length Dosing, 101, kg, 07/01/23 15:03:00 EST, Weight Dosing methylPREDNISolone, = 1 packet(s), Oral, As Directed, as directed on package labeling, X 6 day(s), # 21 tab(s), Refills(s) 0, Pharmacy: [facility] #[id number], 185, cm, 02/09/23 16:48:00 EDT, Height/Length Dosing, 101, kg, 07/01/23 15:03:00 EST, Weight Dosing 3. BMI 29.0-29.9,adult (Z68.29: Body mass index [BMI] 29.0-29.9, adult) bmi education complete Ordered: amoxicillin-clavulanate, = 1 tab(s), Oral, q12hr, X 7 day(s), # 14 tab(s), Refills(s) 0, Pharmacy: [facility] #[id number], 185, cm, 02/09/23 16:48:00 EDT, Height/Length Dosing, 101, kg, 07/01/23 15:03:00 EST, Weight Dosing benzonatate, 200 mg = 1 cap(s), Oral, TID, X 7 day(s), # 21 cap(s), Refills(s) 0, Pharmacy: [facility] #[id number], 185, cm, 02/09/23 16:48:00 EDT, Height/Length Dosing, 101, kg, 07/01/23 15:03:00 EST, Weight Dosing methylPREDNISolone, = 1 packet(s), Oral, As Directed, as directed on package labeling, X 6 day(s), # 21 tab(s), Refills(s) 0, Pharmacy: [facility] #[id number], 185, cm, 02/09/23 16:48:00 EDT, Height/Length Dosing, 101, kg, 07/01/23 15:03:00 EST, Weight Dosing 4. Non-smoker (Z78.9: Other specified health status) continue not smoking Ordered: amoxicillin-clavulanate, = 1 tab(s), Oral, q12hr, X 7 day(s), # 14 tab(s), Refills(s) 0, Pharmacy: [facility] #[id number], 185, cm, 02/09/23 16:48:00 EDT, Height/Length Dosing, 101, kg, 07/01/23 15:03:00 EST, Weight Dosing benzonatate, 200 mg = 1 cap(s), Oral, TID, X 7 day(s), # 21 cap(s), Refills(s) 0, Pharmacy: [facility] #[id number], 185, cm, 02/09/23 16:48:00 EDT, Height/Length Dosing, 101, kg, 07/01/23 15:03:00 EST, Weight Dosing methylPREDNISolone, = 1 packet(s), Oral, As Directed, as directed on package labeling, X 6 day(s), # 21 tab(s), Refills(s) 0, Pharmacy: [facility] #[id number], 185, cm, 02/09/23 16:48:00 EDT, Height/Length Dosing, 101, kg, 07/01/23 15:03:00 EST, Weight Dosing Follow-up No qualifying data available Problem List/Past Medical History Ongoing BPH with urinary (more content not included)... Normal [facility] Comment on above: Result Comment: Elec tronically Signed By: Qiana Gayle\.br\Date and Time Signed: 07/01/23 15:15 EST CBC AUTO DIFFon 08-13-2022 BASO # 0.0 103/ul Normal 0.0-0.1 [facility] Comment on above: Performed By: #### C BC #### [facility] [address] [place] [address] Dr. Dorothy Kaur Basophils/100 WBC (Bld) 0.4 % Normal 0.2-2.0 [facility] Comment on above: Performed By: #### C BC #### [facility] [address] [place] [address] Dr. Dorothy Kaur EO # 0.0 103/ul Normal 0.0-0.7 [facility] Comment on above: Performed By: #### C BC #### [facility] [address] [place] [address] Dr. Dorothy Kaur Eosinophils/100 WBC (Bld) 0.1 % Critically low 0.9-7.0 [facility] Comment on above: Performed By: #### C BC #### [facility] [address] [place] [address] Dr. Dorothy Kaur Erythrocyte distribution width (RBC) [Ratio] 13.2 % Normal 11.0-15.0 [facility] Comment on above: Performed By: #### C BC #### [facility] [address] [place] [address] Dr. Dorothy Kaur Hematocrit (Bld) [Volume fraction] 48.8 % Normal 42.0-54.0 [facility] Comment on above: Performed By: #### C BC #### [facility] [address] [place] [address] Dr. Dorothy Kaur Hemoglobin (Bld) [Mass/Vol] 15.4 g/dL Normal 14.0-18.0 [facility] Comment on above: Performed By: #### C BC #### [facility] [address] [place] [address] Dr. Dorothy Kaur IG # 0.05 10e3/ul Critically high 0.00-0.03 [facility] Comment on above: Performed By: #### C BC #### [facility] [address] [place] [address] Dr. Dorothy Kaur IG % 0.6 % Critically high 0.0-0.5 [facility] Comment on above: Performed By: #### C BC #### [facility] [address] [address] [address] Dorothy Kaur LYMPH # 2.0 103/ul Normal 1.2-3.8 [facility] Comment on above: Performed By: #### C BC #### [facility] [address] [place] [address] Dr. Dorothy Kaur Lymphocytes/100 WBC (Bld) 22.5 % Normal 20.5-60.0 [facility] Comment on above: Performed By: #### C BC #### [facility] [address] [place] [address] Dr. Dorothy Kaur MANUAL DIFF REQ NO Normal [facility] Comment on above: Performed By: #### C BC #### [facility] [address] [place] [address] Dr. Dorothy Kaur MCH (RBC) [Entitic mass] 30.3 pg Normal 25.9-34.0 [facility] Comment on above: Performed By: #### C BC #### [facility] [address] [place] [address] Dr. Dorothy Kaur MCHC (RBC) [Mass/Vol] 31.6 g/dL Normal 29.9-35.2 [facility] Comment on above: Performed By: #### C BC #### [facility] [address] [place] [address] Dr. Dorothy Kaur MCV (RBC) [Entitic vol] 95.9 fL Critically high 80.0-94.0 [facility] Comment on above: Performed By: #### C BC #### [facility] [address] [place] [address] Dr. Dorothy Kaur MONO # 0.9 103/ul Critically high 0.3-0.8 [facility] Comment on above: Performed By: #### C BC #### [facility] [address] [place] [address] Dr. Dorothy Kaur Monocytes/100 WBC (Bld) 9.9 % Normal 1.7-12.0 [facility] Comment on above: Performed By: #### C BC #### [facility] [address] [place] [address] Dr. Dorothy Kaur NEUT # 6.0 103/ul Normal 1.4-6.5 [facility] Comment on above: Performed By: #### C BC #### [facility] [address] [place] [address] Dr. Dorothy Kaur Neutrophils/100 WBC (Bld) 66.5 % Normal 43.0-75.0 [facility] Comment on above: Performed By: #### C BC #### [facility] [address] [place] [address] Dr. Dorothy Kaur Platelet mean volume (Bld) [Entitic vol] 9.4 fL Critically low 9.5-13.5 [facility] Comment on above: Performed By: #### C BC #### [facility] [address] [place] [address] Dr. Dorothy aKur PLT 148 103/ul Critically low 150-450 [facility] Comment on above: Performed By: #### C BC #### [facility] [address] [place] [address] Dr. Dorothy Kaur RBC 5.09 106/ul Normal 4.70-6.10 [facility] Comment on above: Performed By: #### C BC #### [facility] [address] [place] [address] Dr. Dorothy Kaur WBC 9.0 103/ul Normal 4.0-11.0 [facility] Comment on above: Performed By: #### C BC #### [facility] [address] [place] [address] Dr. Dorothy Kaur CBC AUTO DIFFon 02-16-2022 BASO # 0.0 103/ul Normal 0.0-0.1 [facility] Comment on above: Performed By: #### C BC #### [facility] [address] [place] [address] Dr. Dorothy Kaur Basophils/100 WBC (Bld) 0.5 % Normal 0.2-2.0 [facility] Comment on above: Performed By: #### C BC #### [facility] [address] [place] [address] Dr. Dorothy Kaur EO # 0.0 103/ul Normal 0.0-0.7 [facility] Comment on above: Performed By: #### C BC #### [facility] [address] [place] [address] Dr. Dorothy Kaur Eosinophils/100 WBC (Bld) 0.0 % Critically low 0.9-7.0 [facility] Comment on above: Performed By: #### C BC #### [facility] [address] [place] [address] Dr. Dorothy Kaur Erythrocyte distribution width (RBC) [Ratio] 13.2 % Normal 11.0-15.0 [facility] Comment on above: Performed By: #### C BC #### [facility] [address] [place] [address] Dr. Dorothy Kaur Hematocrit (Bld) [Volume fraction] 44.2 % Normal 42.0-54.0 [facility] Comment on above: Performed By: #### C BC #### [facility] [address] [place] [address] Dr. Dorothy Kaur Hemoglobin (Bld) [Mass/Vol] 15.1 g/dL Normal 14.0-18.0 [facility] Comment on above: Performed By: #### C BC #### [facility] [address] [place] [address] Dr. Dorothy Kaur IG # 0.05 10e3/ul Critically high 0.00-0.03 [facility] Comment on above: Performed By: #### C BC #### [facility] [address] [place] [address] Dr. Dorothy Kaur IG % 0.6 % Critically high 0.0-0.5 [facility] Comment on above: Performed By: #### C BC #### [facility] [address] [place] [address] Dr. Dorothy Kaur LYMPH # 2.8 103/ul Normal 1.2-3.8 [facility] Comment on above: Performed By: #### C BC #### [facility] [address] [place] [address] Dr. Dorothy Kaur Lymphocytes/100 WBC (Bld) 34.6 % Normal 20.5-60.0 [facility] Comment on above: Performed By: #### C BC #### [facility] [address] [place] [address] Dr. Dorothy Kaur MANUAL DIFF REQ NO Normal [facility] Comment on above: Performed By: #### C BC #### [facility] [address] [place] [address] Dr. Dorothy Kaur MCH (RBC) [Entitic mass] 30.2 pg Normal 25.9-34.0 [facility] Comment on above: Performed By: #### C BC #### [facility] [address] [place] [address] Dr. Dorothy Kaur MCHC (RBC) [Mass/Vol] 34.2 g/dL Normal 29.9-35.2 [facility] Comment on above: Performed By: #### C BC #### [facility] [address] [place] [address] Dr. Dorothy Kaur MCV (RBC) [Entitic vol] 88.4 fL Normal 80.0-94.0 [facility] Comment on above: Performed By: #### C BC #### [facility] [address] [place] [address] Dr. Dorothy Kaur MONO # 0.6 103/ul Normal 0.3-0.8 [facility] Comment on above: Performed By: #### C BC #### [facility] [address] [place] [address] Dr. Dorothy Kaur Monocytes/100 WBC (Bld) 7.9 % Normal 1.7-12.0 [facility] Comment on above: Performed By: #### C BC #### [facility] [address] [place] [address] Dr. Dorothy Kaur NEUT # 4.5 103/ul Normal 1.4-6.5 [facility] Comment on above: Performed By: #### C BC #### [facility] [address] [place] [address] Dr. Dorothy Kaur Neutrophils/100 WBC (Bld) 56.4 % Normal 43.0-75.0 [facility] Comment on above: Performed By: #### C BC #### [facility] [address] [place] [address] Dr. Dorothy Kaur Platelet mean volume (Bld) [Entitic vol] 8.8 fL Critically low 9.5-13.5 [facility] Comment on above: Performed By: #### C BC #### [facility] [address] [place] [address] Dr. Dorothy Kaur PLT 151 103/ul Normal 150-450 [facility] Comment on above: Performed By: #### C BC #### [facility] [address] [place] [address] Dr. Dorothy Kaur RBC 5.00 106/ul Normal 4.70-6.10 [facility] Comment on above: Performed By: #### C BC #### [facility] [address] [place] [address] Dr. Dorothy Kaur WBC 8.0 103/ul Normal 4.0-11.0 [facility] Comment on above: Performed By: #### C BC #### [facility] [address] [place] [address] Dr. Dorothy Kaur LIPID PROFILEon 02-16-2022 CHOL-HDL RATIO NORM SEE BELOW Normal [facility] Comment on above: Result Comment: 3.3 - 4.4 LOW RISK 4.4 - 7.1 AVERAGE RISK 7.1 - 11.0 MODERATE RISK >11.0 HIGH RISK Performed By: #### C MP, LIPID #### [facility] [address] [place] [address] Dr. Dorothy Kaur Cholesterol [Mass/Vol] 123 mg/dL Normal <=200 [facility] Comment on above: Performed By: #### C MP, LIPID #### [facility] [address] [place] [address] Dr. Dorothy Kaur Cholesterol in HDL [Mass/Vol] 35 mg/dL Critically low 40-60 [facility] Comment on above: Performed By: #### C MP, LIPID #### [facility] [address] [address] [address] Dorothy Kaur Cholesterol in LDL [Mass/Vol] 73.8 mg/dL Normal [facility] Comment on above: Performed By: #### C MP, LIPID #### [facility] [address] [place] [address] Dr. Dorothy Kaur Cholesterol.total/Chol esterol in HDL [Mass ratio] 3.5 {ratio} Normal [facility] Comment on above: Performed By: #### C MP, LIPID #### [facility] [address] [place] [address] Dr. Dorothy Kaur HDL NORMAL > or = 60 mg/dl - LO W CARDIOVASCULAR RISK <40 mg/dl - HIGH CARDIOVASCULAR RISK Normal [facility] Comment on above: Performed By: #### C MP, LIPID #### [facility] [address] [place] [address] Dr. Dorothy Kaur LDL CALC NORMAL SEE BELOW Normal [facility] Comment on above: Result Comment: <100 mg/dl OPTIMAL 100 - 129 mg/dl NEAR OR ABOVE OPTIMAL 130 - 159 mg/dl BORDERLINE HIGH 160 - 189 mg/dl HIGH >190 mg/dl VERY HIGH Performed By: #### C MP, LIPID #### [facility] [address] [place] [address] Dr. Dorothy Kaur Triglyceride [Mass/Vol] 71 mg/dL Normal <=150 [facility] Comment on above: Performed By: #### C MP, LIPID #### [facility] [address] [place] [address] Dr. Dorothy Kaur VLDL CALC 14.2 mg/dL Normal [facility] Comment on above: Performed By: #### C MP, LIPID #### [facility] [address] [place] [address] Dr. Dorothy Kaur PROF 14(COMP METB)on 022 Albumin [Mass/Vol] 3.4 g/dL Normal 3.4-5.0 [facility] Comment on above: Performed By: #### C MP, LIPID #### [facility] [address] [place] [address] Dr. Dorothy Kaur Albumin/Globulin [Mass ratio] 1.2 {ratio} Normal [facility] Comment on above: Performed By: #### C MP, LIPID #### [facility] [address] [address] [address] Dorothy Kaur ALP [Catalytic activity/Vol] 51 U/L Normal 46-116 [facility] Comment on above: Performed By: #### C MP, LIPID #### [facility] [address] [address] [address] Dorothy Kaur ALT [Catalytic activity/Vol] 30 U/L Normal 16-63 [facility] Comment on above: Performed By: #### C MP, LIPID #### [facility] [address] [address] [address] Dorothy Kaur Anion gap [Moles/Vol] 9.9 mmol/L Normal [facility] Comment on above: Performed By: #### C MP, LIPID #### [facility] [address] [address] [address] Dorothy Kaur AST [Catalytic activity/Vol] 15 U/L Normal 15-37 [facility] Comment on above: Performed By: #### C MP, LIPID #### [facility] [address] [address] [address] Dorothy Kaur Bilirubin [Mass/Vol] 0.7 mg/dL Normal 0.2-1.0 [facility] Comment on above: Performed By: #### C MP, LIPID #### [facility] [address] [address] [address] Dorothy Kaur Calcium [Mass/Vol] 8.3 mg/dL Critically low 8.5-10.1 [facility] Comment on above: Performed By: #### C MP, LIPID #### [facility] [address] [address] [address] Dorothy Kaur Chloride [Moles/Vol] 108 mmol/L Critically high 98-107 [facility] Comment on above: Performed By: #### C MP, LIPID #### [facility] [address] [address] [address] Dorothy Kaur CO2 [Moles/Vol] 27.2 mmol/L Normal 21.0-32.0 [facility] Comment on above: Performed By: #### C MP, LIPID #### [facility] [address] [address] [address] Dorothy Kaur Creatinine [Mass/Vol] 1.14 mg/dL Normal 0.70-1.30 [facility] Comment on above: Performed By: #### C MP, LIPID #### [facility] [address] [address] [address] Dorothy Kaur EGFR-AF BARBADIAN >60 Normal >=60 [facility] Comment on above: Performed By: #### C MP, LIPID #### [facility] [address] [address] [address] Dorothy Kaur EGFR-NON AF BARBADIAN >60 Normal >=60 [facility] Comment on above: Performed By: #### C MP, LIPID #### [facility] [address] [address] [address] Dorothy Kaur Globulin (S) [Mass/Vol] 2.8 g/dL Normal [facility] Comment on above: Performed By: #### C MP, LIPID #### [facility] [address] [address] [address] Dorothy Kaur Glucose [Mass/Vol] 100 mg/dL Normal 74-106 [facility] Comment on above: Performed By: #### C MP, LIPID #### [facility] [address] [address] [address] Dorothy Kaur Potassium [Moles/Vol] 4.1 mmol/L Normal 3.5-5.1 [facility] Comment on above: Performed By: #### C MP, LIPID #### [facility] [address] [address] [address] Dorothy Kaur Protein [Mass/Vol] 6.2 g/dL Critically low 6.4-8.2 [facility] Comment on above: Performed By: #### C MP, LIPID #### [facility] [address] [address] [address] Dorothy Kaur Sodium [Moles/Vol] 141 mmol/L Normal 136-145 [facility] Comment on above: Performed By: #### C MP, LIPID #### [facility] [address] [place], [place] [address] Dr. Dorothy Kaur Urea nitrogen [Mass/Vol] 21.0 mg/dL Critically high 7.0-18.0 [facility] Comment on above: Performed By: #### C MP, LIPID #### [facility] [address] [place], [place] [address] Dr. Dorothy Kaur Urea nitrogen/Creatinine [Mass ratio] 18.4 mg/mg Normal [facility] Comment on above: Performed By: #### C MP, LIPID #### [facility] [address] [place], [place] [address] Dr. Dorothy Kaur Vital Signs Date Time Vital Sign Value Performing Clinician Facility 05-29-2024 09:18-0400 Body height 185.4 cm Shannan Box MD Work Phone: 3([phone])[phone] [address] 05-29-2024 09:18-0400 Body mass index (BMI) [Ratio] 29.49 kg/m2 Shannan Box MD Work Phone: 6(719)[phone] [place] [address] 05-29-2024 09:18-0400 Body temperature 98.4 [degF] Shannan Box MD Work Phone: 1(126)982-209361 [place] [address] 05-29-2024 09:18-0400 Body weight 101.38 kg Shannan Box MD Work Phone: 9(055)435-320061 [place] [address] 05-29-2024 09:18-0400 Diastolic blood pressure 72 mm[Hg] Shannan Box MD Work Phone: 7(007)417-624761 [place] [address] 05-29-2024 09:18-0400 Heart rate 76 /min Shannan Box MD Work Phone: 9(520)910-330261 [place] [address] 05-29-2024 09:18-0400 Respiratory rate 16 /min Shannan Box MD Work Phone: 1(606)123-059261 [place] [address] 05-29-2024 09:18-0400 SaO2% (BldA) [Mass fraction] 94 % Shannan Box MD Work Phone: [facility] 05-29-2024 09:18-0400 Systolic blood pressure 120 mm[Hg] Shannan Box MD Work Phone: [facility] 04-24-2024 08:14-0400 Blood Pressure Location Marika Orzech [facility] 04-24-2024 08:14-0400 Diastolic blood pressure 78 mm[Hg] Marika Orzech [facility] 04-24-2024 08:14-0400 Heart rate 77 /min Marika Orzech [facility] 04-24-2024 08:14-0400 Respiratory rate 16 /min Marika Orzech [facility] 04-24-2024 08:14-0400 Systolic blood pressure 126 mm[Hg] Marika Orzech [facility] 04-20-2024 12:05-0400 Diastolic blood pressure 94 mm[Hg] DO Antony Thompson Work Phone: [facility] 04-20-2024 12:05-0400 Heart rate 67 /min DO Antony Thompson Work Phone: [facility] 04-20-2024 12:05-0400 Respiratory rate 16 /min DO Antony Thompson Work Phone: [facility] 04-20-2024 12:05-0400 SaO2% (BldA) [Mass fraction] 98 % DO Antony Thompson Work Phone: [facility] 04-20-2024 12:05-0400 Systolic blood pressure 143 mm[Hg] DO Antony Thompson Work Phone: [facility] 04-20-2024 11:10-0400 Body temperature 97.8 [degF] DO Antony Thompson Work Phone: [facility] 04-20-2024 10:45-0400 Inhaled oxygen flow rate 0 L/min DO Antony Thompson Work Phone: [facility] 04-20-2024 07:32-0400 Body height 185.42 cm DO Antony Thompson Work Phone: [facility] 04-20-2024 07:32-0400 Body weight 99 kg DO Antony Thompson Work Phone: [facility] 04-12-2024 10:52-0400 Body height 185.42 cm DO Antony Thompson Work Phone: [facility] 04-12-2024 10:52-0400 Body mass index (BMI) [Ratio] 28.8 kg/m2 DO Antony Thompson Work Phone: [facility] 04-12-2024 10:52-0400 Body temperature 97.9 [degF] DO Antony Htompson Work Phone: [facility] 04-12-2024 10:52-0400 Body weight 99.33 kg DO Antony Thompson Work Phone: [facility] 04-12-2024 10:52-0400 Diastolic blood pressure 82 mm[Hg] DO Antony Thompson Work Phone: [facility] 04-12-2024 10:52-0400 Heart rate 66 /min DO Antony Thompson Work Phone: [facility] 04-12-2024 10:52-0400 Respiratory rate 16 /min DO Antony Thompson Work Phone: [facility] 04-12-2024 10:52-0400 SaO2% (BldA) [Mass fraction] 97 % DO Antony Thompson Work Phone: [facility] 04-12-2024 10:52-0400 Systolic blood pressure 135 mm[Hg] DO Antony Thompson Work Phone: [facility] 03-29-2024 13:58-0400 Body height 185.42 cm DO Antony Thompson Work Phone: [facility] 03-29-2024 13:58-0400 Body mass index (BMI) [Ratio] 29 kg/m2 DO Antony Thompson Work Phone: [facility] 03-29-2024 13:58-0400 Body temperature 97.5 [degF] DO Antony Thompson Work Phone: [facility] 03-29-2024 13:58-0400 Body weight 99.79 kg DO Antony Thompson Work Phone: [facility] 03-29-2024 13:58-0400 Diastolic blood pressure 82 mm[Hg] DO Antony Thompson Work Phone: [facility] 03-29-2024 13:58-0400 Heart rate 73 /min DO Antony Thompson Work Phone: [facility] 03-29-2024 13:58-0400 Respiratory rate 16 /min DO Antony Thompson Work Phone: [facility] 03-29-2024 13:58-0400 SaO2% (BldA) [Mass fraction] 97 % DO Antony Thompson Work Phone: [facility] 03-29-2024 13:58-0400 Systolic blood pressure 138 mm[Hg] DO Antony Thompson Work Phone: [facility] 03-01-2024 15:12-0400 Body temperature 98 [degF] [employer] Marika Orzech Work Phone: [facility] 03-01-2024 15:12-0400 Diastolic blood pressure 60 mm[Hg] [employer] Marika Orzech Work Phone: [facility] 03-01-2024 15:12-0400 Heart rate 71 /min [employer] Marika Orzech Work Phone: [facility] 03-01-2024 15:12-0400 Respiratory rate 15 /min [employer] Marika Orzech Work Phone: [facility] 03-01-2024 15:12-0400 SaO2% (BldA) [Mass fraction] 96 % [employer] Marika Orzech Work Phone: [facility] 03-01-2024 15:12-0400 Systolic blood pressure 104 mm[Hg] [employer] Marika Orzech Work Phone: [facility] 03-01-2024 12:25-0400 Body height 185.42 cm [employer] Marika Orzech Work Phone: [facility] 03-01-2024 05:26-0400 Body weight 99.5 kg [employer] Marika Orzech Work Phone: [facility] 02-29-2024 16:54-0400 Inhaled oxygen flow rate 8 L/min [employer] Marika Orzech Work Phone: [facility] 02-29-2024 14:02-0400 Body mass index (BMI) [Ratio] 28.8 kg/m2 [employer] Marika Orzech Work Phone: [facility] 02-27-2024 23:45-0400 Inhaled oxygen concentration 30 % [employer] Marika Orzech Work Phone: [facility] 02-26-2024 09:10-0400 Body height 185.42 cm [employer] Marika Orzech Work Phone: [facility] 02-26-2024 09:10-0400 Body mass index (BMI) [Ratio] 28.8 kg/m2 [employer] Marika Orzech Work Phone: [facility] 02-26-2024 09:10-0400 Body temperature 98 [degF] [employer] Marika Orzech Work Phone: [facility] 02-26-2024 09:10-0400 Body weight 99.33 kg [employer] Marika Orzech Work Phone: [facility] 02-26-2024 09:10-0400 Diastolic blood pressure 71 mm[Hg] [employer] Marika Orzech Work Phone: [facility] 02-26-2024 09:10-0400 Heart rate 82 /min [employer] Marika Orzech Work Phone: [facility] 02-26-2024 09:10-0400 Respiratory rate 16 /min [employer] Marika Orzech Work Phone: [facility] 02-26-2024 09:10-0400 SaO2% (BldA) [Mass fraction] 96 % [employer] Marika Orzech Work Phone: [facility] 02-26-2024 09:10-0400 Systolic blood pressure 111 mm[Hg] [employer] Marika Orzech Work Phone: [facility] 01-07-2024 10:44-0400 Body height 185.42 cm [employer] Marika Orzech Work Phone: [facility] 01-07-2024 10:44-0400 Body weight 99.79 kg [employer] Marika Orzech Work Phone: [facility] 11-29-2023 08:07-0400 Diastolic blood pressure 72 mm[Hg] Marika Orzech [facility] 11-29-2023 08:07-0400 Heart rate 75 /min Marika Orzech [facility] 11-29-2023 08:07-0400 Respiratory rate 16 /min Marika Orzech [facility] 11-29-2023 08:07-0400 Systolic blood pressure 117 mm[Hg] Marika Orzech [facility] 09-05-2023 15:25-0500 Body height 185.42 cm Anjelica Ganga Other [employer] Other 09-05-2023 15:25-0500 Body mass index (BMI) [Ratio] 29.02 kg/m2 Anjelica Ganga Other [employer] Other 09-05-2023 15:25-0500 Body temperature 98.4 [degF] Anjelica Ganga Other [employer] Other 09-05-2023 15:25-0500 Body weight 99.79 kg Anjelica Ganga Other [employer] Other 09-05-2023 15:25-0500 Diastolic blood pressure 76 mm[Hg] Anjelica Ganga Other [employer] Other 09-05-2023 15:25-0500 Respiratory rate 16 /min Anjelica Ganga Other [employer] Other 09-05-2023 15:25-0500 SaO2% (BldA) [Mass fraction] 97 % Anjelica Ganga Other [employer] Other 09-05-2023 15:25-0500 Systolic blood pressure 133 mm[Hg] Anjelica Schuler Other [facility] [employer] Other 12-31-2022 10:47-0400 Diastolic blood pressure 65 mm[Hg] MD Fuad Sunshine Work Phone: [facility] 12-31-2022 10:47-0400 Heart rate 62 /min MD Fuad Sunshine Work Phone: [facility] 12-31-2022 10:47-0400 Respiratory rate 16 /min MD Fuad Sunshine Work Phone: [facility] 12-31-2022 10:47-0400 SaO2% (BldA) [Mass fraction] 95 % MD Fuad Sunshine Work Phone: [facility] 12-31-2022 10:47-0400 Systolic blood pressure 102 mm[Hg] MD Fuad Sunshine Work Phone: [facility] 12-31-2022 09:17-0400 Body height 185.42 cm MD Fuad Sunshine Work Phone: [facility] 12-31-2022 09:17-0400 Body temperature 98 [degF] MD Fuad Sunshine Work Phone: [facility] 12-31-2022 09:17-0400 Body weight 97.52 kg MD Fuad Sunshine Work Phone: [facility] 11-24-2022 08:43-0400 Blood Pressure Location Kassdiy Lue [facility] 11-24-2022 08:43-0400 Diastolic blood pressure 71 mm[Hg] Kassidy Lue [facility] 11-24-2022 08:43-0400 Heart rate 67 /min Kassidy Lue [facility] 11-24-2022 08:43-0400 Systolic blood pressure 118 mm[Hg] Kassidy Cunningham [facility] 11-30-2021 08:10-0400 Blood Pressure Location Annette Parker Jr. [facility] 11-30-2021 08:10-0400 Diastolic blood pressure 85 mm[Hg] Annette Parker Jr. [facility] 11-30-2021 08:10-0400 Heart rate 75 /min Annette Parker Jr. [facility] 11-30-2021 08:10-0400 Systolic blood pressure 131 mm[Hg] Annette Parker Jr. [facility] Encounters Encounter Date Encounter Type Care Provider Facility Start: 10-24-2024 ambulatory Kassidy KahnArnoldo Octavio Facility:[facility] Start: 05-29-2024 End: 05-29-2024 Office consultation new/estab patient 80 min Shannan Box MD Work Phone: Division of H[facility]ology & On[facility] at [facility] Comment on above: Cutaneous B-cell lym phoma (Primary Dx); CLL (chronic lymphocytic leukemia); Genetic anomalies of leukocytes Start: 05-29-2024 ambulatory QIANA ANDRE Facility:[facility] Start: 05-10-2024 ambulatory Qiana Andre Facili ty:[facility] Start: 04-30-2024 End: 04-30-2024 ambulatory JERED LEON V Not Available Start: 04-24-2024 End: 04-24-2024 ambulatory Marika Fisher Facility:[facility] Start: 04-24-2024 End: 04-24-2024 Patient encounter procedure Marika Fisher [facility] Start: 04-20-2024 End: 04-20-2024 Admission to same day surgery center DO Antony Thompson Work Phone: [facility] [place] Start: 04-20-2024 End: 04-20-2024 ambulatory DO Antony J Thompson Work Phone: [facility] Work Phone: Start: 04-17-2024 End: 04-17-2024 Patient encounter procedure DO Antony Thompson Work Phone: [facility] Work Phone: Start: 04-17-2024 End: 04-17-2024 ambulatory DO Antony J Thompson Work Phone: [facility] Work Phone: Start: 04-16-2024 End: 04-16-2024 ambulatory JERED LEON V Not Available Start: 04-12-2024 End: 04-12-2024 Patient encounter procedure DO Antony Thompson Work Phone: [facility] Work Phone: Start: 04-12-2024 Registered Recurring DO Antony Thompson Work Phone: [facility] Work Phone: Start: 03-29-2024 End: 03-29-2024 Patient encounter procedure DO Antony Thompson Work Phone: [facility] Work Phone: Start: 03-19-2024 End: 03-19-2024 Patient encounter procedure DO Antony Thompson Work Phone: [facility] Work Phone: Start: 03-02-2024 End: 03-02-2024 ambulatory Qiana L Thai Facility:[facility] [place] [facility] Start: 03-02-2024 End: 04-04-2024 ambulatory Qaina L Thai Facility:CD:[id number] Start: 02-28-2024 Non-patient / Non-visit [employer] Marika Orzech Work Phone: [facility] Work Phone: Start: 02-27-2024 End: 03-01-2024 Evaluation and management of inpatient [employer] Marika Orzech Work Phone: [facility] Work Phone: Start: 02-27-2024 End: 02-27-2024 ambulatory Qiana L Thai Facility:[facility] [place] [facility] Start: 02-26-2024 End: 02-26-2024 Patient encounter procedure [employer] Marika Orzech Work Phone: [facility] Work Phone: Start: 02-16-2024 End: 02-16-2024 ambulatory Qiana L Thai Facility:[facility] Start: 01-09-2024 End: 01-09-2024 Patient encounter procedure [employer] Marika Orzech Work Phone: [facility] [place] Work Phone: Start: 01-09-2024 End: 01-09-2024 ambulatory NON STAFF [facility] Work Phone: Start: 11-29-2023 End: 11-29-2023 ambulatory Marika X Orzech Facility:[facility] [place] Start: 11-29-2023 End: 11-29-2023 Patient encounter procedure Marika X Orzech [facility] Start: 10-26-2023 End: 10-26-2023 ambulatory Qiana L Thai Facility:[facility] [place] [facility] Start: 09-05-2023 End: 09-05-2023 ambulatory Anjelica Ganga Other [facility] [employer] Other Start: 09-05-2023 Office outpatient vi sit 15 minutes Anjeilca Ganga [facility] Start: 08-11-2023 End: 08-11-2023 ambulatory ADRIANA Ana BEY Facility:[facility] [place] [facility] Start: 07-20-2023 End: 07-20-2023 ambulatory Qiana L Thai Facility:[facility] [place] [facility] Start: 07-01-2023 End: 07-01-2023 ambulatory Qiana L Thai Facility:[facility] [place] [facility] Start: 12-31-2022 End: 12-31-2022 Admission to same day surgery center MD Fuad Sunshine Work Phone: [facility] Work Phone: Start: 12-31-2022 End: 12-31-2022 ambulatory MD Fuad Sunshine Work Phone: [facility] Work Phone: Start: 11-24-2022 End: 11-24-2022 Patient encounter procedure Kassidy Shonda Cunningham [facility] Start: 10-02-2022 End: 10-03-[address] FUAD SUNSHINE . Facility:[facility] Start: 08-13-2022 End: 08-14-[address] FUAD SUNSHINE . Facility:[facility] Start: 03-09-2022 End: 03-09-2022 Patient encounter procedure MD Fuad Sunshine Work Phone: [facility] Start: 02-16-2022 End: 02-17-[address] FUAD SUNSHINE . Facility:[facility] Start: 11-30-2021 End: 11-30-2021 Patient encounter procedure Annette Parker Jr. [facility] Start: 11-27-2021 End: 11-28-[address] FUAD SUNSHINE . Facility: Procedures Date Procedure Procedure Detail Performing Clinician Start: 05-29-2024 Beta-2 microglobulin Se jessica Box MD Work Phone: Start: 05-29-2024 CBC AND ELECTRONIC DIFF Shannan Box MD Work Phone: Start: 05-29-2024 CG CULTURE Shannan march MD Work Phone: Start: 05-29-2024 Complete blood count with white cell differential, automated Shannan Box MD Work Phone: Start: 05-29-2024 Comprehensive metabo lic panel Shannan Box MD Work Phone: Start: 05-29-2024 Igh@ variable region somatic mutation analysis Shannan Box MD Work Phone: Start: 05-29-2024 IGVH MUTATION ANALYS IS (SOMATIC HYPERMUTATION), BLOOD, B AND B GANG WORKER Shannan Box MD Work Phone: Start: 05-29-2024 Molecule isolate nucleic Shannan Box MD Work Phone: Start: 05-29-2024 RNA EXTRACTION Shannan Box MD Work Phone: Start: 04-20-2024 Excision of cyst DO Dayne Thompson Work Phone: Start: 04-04-2024 Positron emission to mography with computed tomography DO Antony Thompson Work Phone: Start: 02-29-2024 Procedure on lower extremity [employer] Marika Orzech Work Phone: Start: 02-29-2024 Investigation of tra nsfusion reaction [employer] Marika Orzech Work Phone: Start: 02-28-2024 MRI of right humerus with contrast [employer] Marika Orzech Work Phone: Start: 02-28-2024 Plain X-ray of right elbow [employer] Marika Orzech Work Phone: Start: 02-28-2024 CT of right humerus with contrast [employer] Marika Orzech Work Phone: Start: 02-27-2024 Blood culture for ba cteria, including anaerobic screen DO Antony Thompson Work Phone: Start: 01-09-2024 MR prostate wo/w con FN P-BC Marika Orzech Work Phone: Start: 01-13-2023 Colonoscopy Marika Orz srinivas Comment on above: repeat in 3 years Start: 12-31-2022 Colonoscopy MD Fuad dunn Work Phone: Start: 10-02-[address] FUAD PAEZ . Comment on above: Performed By: #### P SAD #### [facility] [address] [place] [address] Dr. Dorothy Kaur Start: 08-13-[address] FUAD PAEZ . Comment on above: Performed By: #### P SAD #### [facility] [address] [place] [address] Dr. Dorothy Kaur Start: 03-09-2022 X-ray of left foot MD Hugo Sunshine Work Phone: Start: 11-27-[address] FUAD PAEZ . Comment on above: Performed By: #### P SAD #### [facility] [address] [place] [address] Dr. Dorothy Kaur Start: 06-02-2020 Cystoscopy Annette carnes Jr. Start: 06-07-2018 Ultrasonography by transrectal approach Annette Parker Jr. Start: 01-05-2016 Cystoscopy Annette carnes Jr. Start: 03-08-2011 Transrectal biopsy o f prostate using ultrasound guidance Annette Parker Jr. Tonsillectomy Annette Keith oglesby Plan of Treatment Date Care Activity Detail Author Start: 11-16-2024 End: 11-16-2024 Patient encounter procedure 11/16/2024 11:00 AM EDT Office Visit [facility] [address] [facility] [address] [place] [address] [facility] Start: 05-29-2024 End: 05-29-2025 Cytogenetic procedure [facility] Comment on above: Expected: 05/29/2024 , Expires: 05/29/2025 Start: 04-20-2024 End: 04-20-2024 [facility] Start: 04-12-2024 Patient referral [facility] Work Phone: Start: 04-01-2024 COVID-19 VACCINE () COVID-19 VACCINE () [facility] Start: 04-01-2024 Influenza vaccination INFLUENZA VACC INE (#1) [facility] Start: 03-01-2024 [facility] Start: 02-29-2024 End: 02-29-2024 [facility] Start: 02-28-2024 Consultation [facility] Start: 02-27-2024 Hospital admission [facility] Start: 02-27-2024 Blood culture for bacteria, including anaerobic screen Blood Culture [facility] Start: 02-27-2024 Drainage of Right Up per Arm Subcutaneous Tissue and Fascia, Open Approach Drainage of Right Upper Arm Subcutaneous Tissue and Fascia, Open Approach [facility] Start: 02-27-2024 Excision of Right Up per Arm Subcutaneous Tissue and Fascia, Open Approach, Diagnostic Excision of Right Upper Arm Subcutaneous Tissue and Fascia, Open Approach, Diagnostic [facility] Start: 12-31-2022 [facility] Start: 07-31-2020 Pneumococcal vaccination PNEUMOCOCCAL VACCINE SERIES (2 of 2 - PPSV23 or PCV20) [facility] Start: 2018 Abdominal aortic aneurysm screening ABDOMINAL AORTIC ANEURYSM HIGH RISK SCREEN [facility] Start: 2013 RSV VACCINE (1 - 1-d ose 60+ series) RSV VACCINE (1 - 1-dose 60+ series) [facility] Start: 11-27-2003 Prostate specific antigen measurement PROSTATE CANCER SCREENING DISCUSSION [facility] Start: 1998 Screening for malign ant neoplasm of colon COLORECTAL CANCER SCREENING DISCUSSION [facility] Start: 1993 Lipid panel LIPID SCREENING [facility] Start: 1972 Third diphtheria, tetanus and acellular pertussis (DTaP) vaccination TDAP (ADULT) [facility] Start: 1972 Zoster vaccine hzv l vikas for subcutaneous use ZOSTER (SHINGLES) VACCINE (1 of 2) [facility] Start: 1953 Hepatitis C screening HEPATITI S C VIRUS SCREENING [facility] Start: 1953 Tetanus vaccination TETANUS [facility] CG [id number] (IGH-CCND1) CG [id number] (IGH-CCND1) Lab Routine CLL (chronic lymphocytic leukemia) Genetic anomalies of leukocytes 05/29/2024 10:51 AM EDT [facility] CG CULTURE CG CULTURE Lab R outine CLL (chronic lymphocytic leukemia) Genetic anomalies of leukocytes 05/29/2024 10:51 AM EDT [facility] CLL EXTENDED FISH PANEL CLL EXTE NDED FISH PANEL Lab Routine CLL (chronic lymphocytic leukemia) Genetic anomalies of leukocytes 05/29/2024 10:51 AM EDT [facility] CYTOGENETIC STUDIES (PERFORMABLE) CYTOGENETIC STUDIES (PERFORMABLE) Lab Routine CLL (chronic lymphocytic leukemia) Genetic anomalies of leukocytes 05/29/2024 10:51 AM EDT [facility] FISH STUDIES FISH STUDIES Lab Routine CLL (chronic lymphocytic leukemia) Genetic anomalies of leukocytes 05/29/2024 10:51 AM EDT [facility] Patient Education [facility] Work Phone: Patient referral [facility] Work Phone: Immunizations Immunization Date Immunization Notes Care Provider Fa cilimerrick 05-14-2022 influenza virus vaccine, unspecified formulation Kassidy Cunningham [facility] 05-14-2022 Influenza, High-dose Seasonal, Quadrivalent, Preservative Free Shannan Box MD Work Phone: [facility] 05-14-2022 SARS-CoV-2 (COVID-19 ) [id number] Kassidy Cunningham [facility] 12-07-2021 SARS-CoV-2 mRNA (ppemulievcv-pbtm-fjigy se) vaccine Kassidy Cunningham [facility] 05-10-2021 SARS-CoV-2 (COVID-19 ) mRNA BNT-162b2 vax Kassidy Cunningham [facility] 10-18-2020 SARS-CoV-2 (COVID-19 ) Ad26 vaccine, recombinant Annette Parker Jr. [facility] 09-27-2020 SARS-CoV-2 (COVID-19 ) mRNA BNT-162b2 vax Kassidy Cunningham [facility] 09-02-2020 SARS-CoV-2 (COVID-19 ) Ad26 vaccine, recombinant Annette Parker Jr. [facility] 06-05-2020 influenza virus vaccine, unspecified formulation Kassidy Cunningham [facility] 06-05-2020 influenza, injectabl e, quadrivalent, preservative free Shannan Box MD Work Phone: [facility] 06-05-2020 pneumococcal conjuga te vaccine, 13 valent Kassidy Cunningham [facility] Payers Date Payer Category Payer Medicare MEDICARE MEDICAR E A AND B [id number] 2024-Present [address] [place] [address] [id number] 2023 Self-pay [id number] 2021 Unknown GENERIC PAYOR ME DICARE SUPPLEMENT [id number] 2021-Present [phone] [address] [address] [place] [address] [id number] 1959 Medicare [id number] 1959 Private Health Insurance CLI [id number] 1955 Unknown [id number] 2.840.1.330848.3.579 .2.593 1953 Unknown [id number] .840.1.436533.3.579 .2.593 1953 Unknown [id number] .840.1.715837.3.579 .2.593 1953 Unknown [id number] 2.16.840.1.142973.3.579 .2.593 1953 Unknown [id number] 2.16.840.1.456048.3.579 .2.727 1953 Unknown [id number] 2.16.840.1.163448.3.579 .2.727 1953 Unknown [id number] 2.16.840.1.051246.3.579 .2.727 1953 Unknown [id number] 2.16.840.1.231830.3.579 .2.727 1953 Unknown [id number] 2.16.840.1.698793.3.579 .2.727 1953 Unknown [id number] 2.16.840.1.804168.3.579 .2.727 1953 Unknown [id number] 2..840.1.868694.3.579 .2.72 1953 Unknown [id number] 2..840.1.133273.3.579 .2.72 1953 Unknown [id number] 2..840.1.857879.3.579 .2.72 1953 Unknown [id number] 2.840.1.320213.3.579 .2.72 1953 Unknown [id number] 2.840.1.023454.3.579 .2.1259 1953 Unknown [id number] 2.840.1.851585.3.579 .2.1259 1953 Unknown [id number] 2..840.1.732525.3.579 .2.594 Unknown [id number] Unknown [facility] [id number] Unknown [id number] 2.16.840.1.848715.3.579 .2.531 Unknown [id number] 2.16.840.1.511765.3.579 .2.531 Unknown [id number] 2.16.840.1.601617.3.579 .2.531 Unknown [id number] 2.16.840.1.323258.3.579 .2.531 Unknown [id number] 2.16.840.1.043618.3.579 .2.531 Worker's Compensation [facility] [id number] Social History Date Type Detail Facility Start: 06-03-2021 End: 04-24-2024 Tobacco smoking status Never smoked tobacco (finding) [facility] Start: 05-29-2024 Sex Assigned At Male [facility] Start: 1955 Sex Assigned At Male F [facility] Tobacco smoking status Smokeless tobacco user within last 30 days [facility] Tobacco smoking status NHIS Tobacco smoking consumption unknown [facility] Start: 05-29-2024 History of Social function [facility] Start: 1955 Sex assigned at Not on file O [facility] Goals Date Patient Goal Desired Activity /State Functional Status Date Assessment Result Facility 04-24-2024 Functional Status N/A [facility] 03-01-2024 Functional status Patient is Pro gressing Toward [facility] Work Phone: 11-29-2023 Functional Status N/A [facility] 11-24-2022 Functional Status N/A [facility] Mental Status Date Assessment Result Facility 03-01-2024 Cognitive function Cognitive Sta tus Patient at [facility] Work Phone: Clinical Notes 11-30-2021 to 05-29-2024 Shannan Box MD - 05/29/2024 9:00 AM EDTLmack Dillard RN - 05/29/2024 9:00 AM EDTPatient Instructions Note Date & Type Note Facility 05-29-2024 History of Present illness Narrative Images from the original note were not included. Date: 05/29/24 Chief Complaint Chief Complaint Patient presents with New Patient Disease & Treatment History Diagnosis: CLL (04/16/2024) Risk Stratification: Trisomy 12 Treatments: Untreated Diagnosis History Mily Ibrahim is a 68 y.o. male recently diagnosed with chronic lymphocytic leukemia after workup/ treatment for a right arm abscess. He presented to [facility] for a painful lump and pruritic rash on his right arm on 02/28/24. A biopsy of his right arm abscess was completed on 02/29/24 and reviewed by the [facility] on 03/10/24 which showed Chronic lymphocytic leukemia/small lymphocytic lymphoma with histologically aggressive features: including expanded, at places confluent proliferation centers with a relatively high high Ki-67 proliferation fraction. The findings are not considered consistent with a diagnosis of diffuse large B-cell lymphoma. Patient underwent PET/CT on 04/04/24. Among findings, this showed an FDG avid right inguinal lymph node (SUV 4.3). Inguinal lymph node was biopsied on 04/20 by [facility] with cytogenetic analysis, FISH study, and flow cytometry from [facility], and he was diagnosed with atypical lymphoproliferative disorder with findings consistent with histologically aggressive CLL/SLL. His inguinal lymph node biopsy samples were reviewed by [facility] on 05/17, which was in agreement with the previous diagnosis. Consistent with accelerated CLL/SLL. Ki 67 index in proliferation centers of 40%, no areas of large cell transformation seen. He presents today with his and daughter. He was first seen for a painful lump in his arm along with rash. He describes his rash as feeling similar to shingles with a needling sensation, and reports that similar areas developed on legs, abdomen, flanks. He reports that his symptoms improved at first on 10-day course of antibiotics, but did not fully resolve. His arm has completely healed since having the abscess drained. He is otherwise doing well. He reports a chronic rash on his RLE which has been present for years and waxes and wanes, which improves with topical cream. He notes that it is sometimes pruritic, and that he sometimes applies Neosporin to the rash. Currently no blistering but some skin breakage. He reports that he experienced soaking night sweats on his first night after receiving antibiotics for his infection, but has not had any episodes since. He also notes that he had intermittent night sweats prior to his arm infection, but they were less severe and not soaking. He reports that he felt fatigued while working through his infection, but his energy levels have since recovered and no longer feels fatigued. His appetite has been good. Denies any other recent infections. He reports that he has history of thyroid nodules, recently had ultrasound completed. Denies any fevers, cramps, diarrhea, bleeding, bruising, nausea, vomiting, abdominal pain, joint/muscle aches, SOB, chest pain, palpitations, leg swelling, chills, recent infections, unintentional weight loss, or increased lymphadenopathy. Non-smoker, denies any alcohol consumption, denies any drug use. 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 Review of Systems Review of systems is unremarkable except as documented in the HPI. No past medical history on file. No past surgical history on file. Tonsillectomy Not on File Medications Current Outpatient Medications Medication Sig hydroCODone-acetaminophen 5-325 MG tablet 1 tablet. Finasteride 5 MG tablet Take 1 tablet by mouth daily. Tamsulosin HCl 0.4 MG capsule Take 2 capsules by mouth daily. No family history on file. Patient reports that his father had CLL and lung cancer, and that he has a sister with history of breast cancer. PHYSICAL EXAM Vitals: 05/29/24 0918 BP: 120/72 Pulse: 76 Resp: 16 Temp: 98.4 F (36.9 C) SpO2: 94% ECOG Performance Status 0 GENERAL: well-appearing, NAD HEENT: MMM with no oral lesions or thrush, extraocular movements intact and pupils reactive to light, sclera anicteric, conjuctiva normal NECK: supple, no JVD CHEST: clear to auscultation bilaterally; no wheezes/rhonchi CARD: heart sounds regular; no murmurs/rubs/gallops ABDO: bowel sounds normoactive, soft, non-tender, non-distended Liver Not palpable cm Spleen Not palpable cm EXT: free of clubbing, cyanosis, and edema NEURO: A&O x 3, screening examination with no gross focal deficits SKIN: free of rashes or bruising LYMPH: Left (cm x cm) Right (cm x cm) Cervical -- -- Supraclavicular -- -- Axillary -- -- Inguinal -- -- PSYCH: Normal mood, affect congruent LABS: Lab Results Component Value Date WBC 8.57 05/29/2024 HGB 15.0 05/29/2024 HCT 43.6 05/29/2024 PLATELET 153 05/29/2024 MCV 87.4 05/29/2024 Lab Results Component Value Date RBCDISTRIBU 13.3 05/29/2024 GRNLOCYT 61.1 05/29/2024 LYMPHOCYT 31.2 05/29/2024 MONOCYTELEC 6.7 05/29/2024 EOSINOPHILS 0.1 05/29/2024 BASOPHILS 0.2 05/29/2024 LYMPHOCYTABS 2.67 05/29/2024 EOSINOPHLABS <0.04 05/29/2024 PLATELET 153 05/29/2024 MPV 8.9 05/29/2024 Lab Results Component Value Date SODIUM 140 05/29/2024 POTASSIUM 4.2 05/29/2024 CHLORIDE 107 05/29/2024 CO2 28 05/29/2024 BUN 13 05/29/2024 CREATSERUM 0.93 05/29/2024 GLUCOSE 101 (H) 05/29/2024 Lab Results Component Value Date CALCIUM 8.8 05/29/2024 Lab Results Component Value Date ALT 15 05/29/2024 AST 14 05/29/2024 ALKPHOS 42 05/29/2024 BILITOTAL 0.6 05/29/2024 Lab Results Component Value Date LDH 144 05/29/2024 Pathology: R inguinal LN Bx review by [facility], 05/17/[address] Bx, 04/20/2024 R elbow abscess Bx, 02/29/2024 Recent Imaging: PET/CT skull base to mid thigh, 04/04/2024 Impression: FDG avid lymph nodes seen above and below the diaphragm consistent with lymphomatous involvement. Abnormal activity involving the right upper extremity consistent with the patient's history of abscess. FDG avid right lobe thyroid nodule. Correlation with ultrasound is recommended. NM PET tumor INIT TX STRAT WB, 04/04/2024 FINDINGS: Neck: No abnormal activity is noted. [...] right upper extremity abscess, SUV max 2.4. MRI, 02/28/2024 ASSESSMENT & PLAN Mily Ibrahim is a 68 y.o. male recently diagnosed with CLL who presents today for new patient evaluation. CLL/SLL with Trisomy 12. Per outside pathology, this has been called accelerated CLL. Accelerated CLL is a rare presentation. Although the biopsy shows expanded proliferation center with Ki67 of 40%, he does not depict other associated high risk features like high LDH, a very high beta 2 microglobulin. Also the PET scan is in favor of an indolent disease. He does not have B symptoms and counts are normal. I don't believe there is any urgent need of treatment at this time. We talked about the indications for therapy and discussed in detail the iWCLL 2018 guidelines including the recommended hemoglobin of less than 10 and platelets of less than 100 with symptomatic lymphadenopathy and splenomegaly or other disease related symptoms as reasons for therapy. Slides from his previous biopsies have been requested for review by [facility] pathology. Once this review is completed , we will have a better understanding of the biopsy results and will be able to make a reasonable recommendation about further management. Rash. We did discuss that CLL/SLL is associated with a variety of dermal manifestations. He was Referred to [facility] dermatology. Return to clinic: open We encouraged him to contact the clinic with any questions or concerns. Mr. Ibrahim understands and agrees to the plan. Documented by Ruperto Posey, for Dr. Shannan Box on 05/29/2024 at 5:44 PM All medical record entries made by the Taty were at my direction and personally dictated by me, Shannan Box MD. I have reviewed the chart and agree that the record accurately reflects my personal performance of the history, physical exam, assessment and plan. I have also personally directed, reviewed and agree with the discharge instructions. Shannan Box MD [facility] Reviewed After Visit Summary with patient and family. Discussed any medication changes and recommendations from physician. All questions answered. Patient and family encouraged to call with any additional questions. documented in this encounter [facility] 05-29-2024 Instructions Karen Omer RN - 05/29/2024 9:00 AM EDT YOUR PRIMARY TEAM Dr. Shannan Jimenez, LEELA - Nurse Practitioner Sherin Nash CNP - Nurse Practitioner Cynthia Dillard, GAYATRI - Primary Nurse Duke Omer RN - Secondary Nurse Please contact our office if you develop a temperature of 100.4 or greater. CONTACT NUMBERS Clinic phone: [phone] Clinic fax: [phone] MEDICAL RECORDS The Release of Information (ANA MARÍA) area is staffed from 8:00 a.m. to 7:00 p.m. and is available for walk in requests from 8:00 a.m. to 4:30 p.m. [facility] is responsible for answering requests for copies of medical records from various requestors such as insurance companies, attorneys, hospitals and patients. Please note it can take up to 2 weeks to complete your request. [phone]; [phone] (fax). FINANCIAL CONCERNS Any questions regarding billing for services or insurance coverage concerns should be directed to our billing department at [phone]. DISABILITY FORMS This category includes any form (STD, LTD, FMLA, cancer insurance policy) requiring information to be completed by a physician or nurse practitioner. The forms should be given to the clinic nurse. There is no fee associated with this request but note it may take 2 weeks to complete. The forms cannot be completed during a clinic visit or within 24 hours of your request. It is important to place the patient s name, employee s name, patient s date, date disability begins and ends, and any required signatures. Ask our team about the suggested recovery time. [facility] Fluid-1 is a secure way to get access to your health records online. The medical information you will have access to within the [employer] program is only selected portions of your entire chart, such as basic laboratory results, summary medical history, visit history, and selected billing information. It will also allow you to communicate with your health care provider through email. To provide you with the best quality care available, we need to be able to discuss these results with you personally. If you are unable to obtain the results of a test that you can't find within the My Chart please feel free to call us and we will get back to you with that information. For non-emergent concerns, please send us a Replicon message but describe your issue fully. When sending a message to the provider, please know that these messages will be received and answered by the primary nurse practitioner. The nurse practitioner will consult your physician when needed. For questions or concerns regarding Replicon access or technical dificulties, please call [phone] or toll free at . __ documented in this encounter [facility] 04-24-2024 Hospital Discharge instructions Patient Education 04/24/2024 [...] treatment? Where to find more information The [place] [employer]: www.cancer.org [place] [employer]: www.auanet.org Contact a health care [...] provider. Document Revised: 01/11/2022 Document Reviewed: 01/11/2022 [employer] Patient Education 2023 [employer] 04/24/2024 08:45:17 Benign Prostatic Hyperplasia Benign Prostatic [...] urethra. Follow these instructions at home: Take nshq-ziu-harvmtp and prescription medicines only as told by [...] provider. Document Revised: 02/03/2022 Document Reviewed: 02/03/2022 [employer] Patient Education 2023 [employer]. Follow Up Care 02/15/2024 10:43:30 With:Octavio EATON, SCOTT Tello, URO Address: When: Unknown Comments:6 mos w/ PSA [facility] 04-24-2024 Note Patient Education Oncology Prostate Cancer [...] Where to find more information ? The [place] [employer]: www.cancer.org ? [place] [employer]: www.auanet.org Contact a health care [...] of the rectum. (more content not included)... [facility] 03-01-2024 Discharge summary Note Date/Time March 01, 2024 4:06pm [facility] [address] [place] [address] Discharge Summary Signed Patient: Mily Ibrahim MR#: [id number] : 1955 Acct:[id number] Age/Sex: 68 / M Adm Date: 4 Loc: 4N Room: 7U2502-[address]: Antony Thompson DO Copies to: Qiana Thompson, ~ Providers Date of Admission: 02/28/24 Date of Discharge: 03/01/24 Discharging Provider: Antony Thompson Primary Care Provider: Qiana Andre Consults: 02/27/24 20:40 Consult to General Surgery [...] biceps Summary Hospital Course Hospital course: Mr Ibrahim is a 68-year-old male who is known to hospital the evening of February 27 as a transfer [facility] facility for chief complaint of mass on [...] the preliminary results from the cultures from [facility] were negative this is likely because patient [...] time, please call to reschedule if needed.) Qiana Andre NP-C [Primary Care Provider] - 03/02/24 2:00 pm (You have beenscheduled for a follow up appointment for the following date and time, please call to reschedule if needed. This appointment will be in the [place] office. The address is [address] [place] [address]) Exam Physical Exam Vital Signs: Temp Pulse [...] 11.4 Documented By: Antony Thompson DO 03/01/24 1603 Signed By: <Electronically signed by Antony Thompson DO> 03/01/24 1605 [facility] Work Phone: 1(333) 770-691008-01-2024 Progress note Author Enoch Han [facility] March 01, 2024 8:12am Note Date/Time March 01, 2024 8:0 4am [facility] [address] [place] [address] Orthopedic Progress Note Signed Patient: Mily Ibrahim MR#: [id number] : 1955 Acct:[id number] Age/Sex: 68 / M Adm Date: 4 Loc: Room: 6M7969-2 Type: ADM IN Attending Dr: Antony Thompson [...] By: <Electronically signed by Enoch Han DO> 03/01/24 0812 [facility] Work Phone: 1(359) 317-310107-31-2024 Progress note Author Antony Thompson [facility] February 29, 2024 12:36pm Note Date/Time February 29, 2024 12:3 6pm [facility] [address] [place] [address] Hospitalist Progress Note Signed Patient: Mily Ibrahim MR#: [id number] : 1955 Acct:[id number] Age/Sex: 68 / M Adm Date: 4 Loc: 4N Room: [address] [place] [address] Type: ADM IN Attending Dr: Antony Thompson [...] 95 Room Air 30 02/29/24 11:27 02/29/24 11:02/29/24 11:27 02/29/24 11:27 02/29/24 11:02/29/24 11:02/27/24 23:45 Narrative: General: Awake alert, no [...] Arm mass: Plan: ? Ultrasound results from [facility] noted in the H&P ? CT [...] ? Patient's chest x-ray was normal from [facility] ? Continue vancomycin ? Orthopedic to take [...] 1233 Signed By: <Electronically signed by Antony Thompson DO> 02/29/24 1236 [facility] Work Phone: 1(757) 386-457907-30-2024 Progress note Author Antony Thompson [facility] February 28, 2024 3:37pm Note Date/Time February 28, 2024 3:38 pm [facility] [address] [place] [address] Hospitalist Progress Note Signed Patient: Mily Ibrahim MR#: [id number] : 1955 Acct:[id number] Age/Sex: 68 / M Adm Date: 4 Loc: Room: [address] [place] [address] Type: ADM IN Attending Dr: Antony Thompson [...] F 69 16 115/70 95 Room Air 02/28/24 11:01 02/28/24 11:02/28/24 11:02/28/24 11:02/28/24 11:02/28/24 11:02/27/24 23:45 Narrative: [...] ? Patient's chest x-ray was normal from [place] ? Start vancomycin after blood cultures were [...] 1535 Signed By: <Electronically signed by Antony Thompson, > 02/28/24 1537 [facility] Work Phone: 1(739) 658-645407-30-2024 Consult note Author Ata Celestin [facility] February 28, 2024 10:37am Note Date/Time February 28, 2024 10:2 2am [facility] [address] [place] [address] Orthopedic Consult Note Signed Patient: Mily Ibrahim MR#: [id number] : 1955 Acct:[id number] Age/Sex: 68 / M Adm Date: 4 Loc: 4N Room: 2C6721-4 Type: ADM IN Attending Dr: Antony Thompson DO Copies to: NON STAFF DO Antony Ruiz DO~ History of Present Illness HPI Consult date: 02/28/2024 Requesting provider: Antony Thompson DO History of present illness: Mumtaz is a fdbtj-iujf-ofjqzyau 68-year-old male who presents to [facility] with a right medial brachial mass. He states that over 2 weeks ago he was working on [employer] whenever he started to feel soreness in that area. He does admit to a scratch on the dorsal aspect of his forearm which healed nicely around the same time. The inner elbow became more swollen and red and painful and he was started on antibiotics by his PCP. Antibiotics did not show any improvement andhe was sent to [place] emergency department for evaluation. An ultrasound was performed at [place] which showed there was a hypoechoic avascular collection adjacent to the basilic vein in the medial aspect of his distal biceps. This measured 1.5 cm. There is also note of a complex mass in the right axilla measuring 3.8 cm. He was sent to [facility] for further evaluation after that. General surgery was consulted and deferred further treatment to orthopedic surgery. He admits to pain in the area. Denies any numbness or tingling. Has had some possible chills but none currently. Denies any axillary pain. Can move elbow and shoulder without issue. [facility] Medical History Sleep apnea treated with continuous [...] % (Auto) 64.2, Lymph % (Auto) 25.2, Wilson % (Auto) 8.9, Eos % (Auto) 1.4, Baso % (Auto) 0.3, Nucleat RBC Rel Count 0.1, Neut # (Auto) 9.3 H, Lymph # (Auto) 3.7, Wilson # (Auto) 1.3 H, Eos # (Auto) [...] signed by Ata Celestin DO> 02/28/24 1037 [facility] Work Phone: 1(581) 854-701107-30-2024 Progress note Author Britton Myers [facility] February 28, 2024 8:56am Note Date/Time February 28, 2024 8:56 am [facility] [address] [place] [address] Progress Note Signed Patient: Mily Ibrahim MR#: [id number] : 1955 Acct:[id number] Age/Sex: 68 / M Adm Date: 4 Loc: Room: [address] [place] [address] Type: ADM IN Attending Dr: Antony Thompson [...] signed by DO Britton Myers> 02/28/24 0856 [facility] Work Phone: 1(336) 224-633607-29-2024 History and physical note Author Antony Thompson [facility] February 27, 2024 9:06pm Note Date/Time February 27, 2024 8:58 pm [facility] [address] [place] [address] Hospitalist H&P Signed Patient: Mily Ibrahim MR#: [id number] : 1955 Acct:[id number] Age/Sex: 68 / M Adm Date: 4 Loc: Room: [address] [place] [address] Type: ADM IN Attending Dr: Antony Thompson DO Copies to: NON STAFF Antony Thompson, ~ HPI DATE OF EXAMINATION: 02/27/24 CHIEF COMPLAINT: arm pain HISTORY OF PRESENT ILLNESS: Mr Ibrahim is a 68-year-old man with a past medical history of BPH who presented to our hospital as a transfer from outside facility with a chief complaint of right arm pain and swelling. Roughly 10 days ago he was outside [employer] working on his [employer] and states he was resting his arm [...] night sweats with this. He arrived at [facility] earlier this afternoon where an ultrasound of his right arm was obtained, ultrasound was negative for DVT or superficial thrombus. There was a hypoechoicavascular collection adjacent to the basilic vein in the medial aspect of his distal biceps. This measured 1.5 cm. There is also note of a complex mass in the right axilla measuring 3.8 cm. He was subsequently transferred to [facility] for further evaluation and treatment. Blood work from [facility] emergency room was notable for a white blood cell countof 14.7, hemoglobin of 15.5, platelets 210. His BNP has sodium of 136, potassium 4.2, chloride 102, carbon oxide 28.4, BUN 11 and creatinine 1.1. Calcium 8.7, remainder of hepatic function panel was normal. Review of Systems Review of Systems All other systems reviewed & are negative unless noted below or in HPI [facility] Medical History Sleep apnea treated with continuous [...] 81 12 132/78 95 Room [facility] 02/27/24 19:02/27/24 19:02/27/24 19:02/27/24 19:02/27/24 19:02/27/24 20:45 Narrative: General: Awake alert, no [...] cultures ?Patient's chest x-ray was normal from [facility] ? Start vancomycin after blood cultures were [...] <Electronically signed by Antony Thompson DO> 02/27/242105 [facility] Work Phone: 1(679) 721-920104-30-2024 Hospital Discharge instructions Patient Education 11/29/2023 08:42:05 [...] treatment? Where to find more information [employer] [place]: www.cancer.org [place] [employer]: www.auanet.org Contact a health care [...] provider. Document Revised: 01/11/2022 Document Reviewed: 01/11/2022 ImmuVen Patient Education 2022 [employer]. 11/29/2023 08:42:03 Benign Prostatic Hyperplasia Benign Prostatic [...] urethra. Follow these instructions at home: Take uldg-gwk-brjluks and prescription medicines only as told by [...] provider. Document Revised: 02/03/2022 Document Reviewed: 02/03/2022 [employer]mu[employer] Patient Education 2022 [employer]. 11/29/2023 08:41:58 Erectile Dysfunction Erectile Dysfunction Erectile [...] Follow these instructions at home: Medicines Take hymz-eqt-mhuurkh and prescription medicines only as told by [...] provider. Document Revised: 10/14/2021 Document Reviewed: 10/14/2021 ImmuVen Patient Education 2022 [employer]. Follow Up Care 11/24/2022 10:13:29 With:Octavio EATON, SCOTT Tello, URO Address: When: Unknown Comments:pending MRI prostate [facility] 02-05-2024 Evaluation note* Encounter Date Diagnosis Assessment [...] twice for the impacted cerumen then the housekeeping aide. Patient states he was sent here to have the impacted cerumen cleaned out from his ear. The right ear was rinsed with warm water and impacted cerumen was cleared. Right ear without erythema or bulging TM, no signs of infection present. Hearing grossly intact. Patient is to avoid using Q-tips in the ears, he was instructed to use tqax-hif-oyokcgs Debrox as instructed on the box as needed for impacted cerumen. Patient was told to follow-up with his primary care provider if symptoms persist. [facility] Discharge instructions Patient Education 11/24/2022 [...] urethra. Follow these instructions at home: Take pdkk-axr-voacnpj and prescription medicines only as told by [...] provider. Document Revised: 02/03/2022 Document Reviewed: 02/03/2022 ImmuVen Patient Education 2022 [employer]. Follow Up Care 10/06/2022 08:16:20 With:Octavio EATON, SCOTT Tello, URO Address: [address] [place] [address]- [phone] When:11/25/2023 Comments:PSA [facility] 05-02-2022 Hospital Discharge instructions Patient Education 11/30/2021 [...] urethra. Follow these instructions at home: Take xdfl-dgq-trojspc and prescription medicines only as told by [...] 07/18/2006 Document Revised: 06/12/2019 Document Reviewed: 08/22/2017 ImmuVen Patient Education [employer]. Follow Up Care 06/03/2021 11:05:20 With:Annette Parker Jr., MD, URO Address: [facility] [address], [place] [address]- When:11/30/2022 Comments:with PSA [facility] evaluation + Plan note Future Appointments Appointment Date:12/06/2022 08:15:00 AM Scheduled Provider:Annette Parker Jr., MD Location:[facility] Appointment Type:URO Office Visit Diagnostic Tests Pending * PSA Total 11/30/21 [facility] Evaluation + Plan note Future Appointments Appointment Date:11/30/2023 08:00:00 AM Scheduled Provider:Kassidy Cunningham MD Location:[facility] Appointment Type:URO Office Visit Diagnostic Tests Pending * PSA Total 11/24/[address] [facility] evaluation + Plan note Future Appointments Appointment Date:10/24/2024 08:00:00 AM Scheduled Provider:Kassidy Cunningham MD Location:[facility] Appointment Type:URO Office Visit Diagnostic Tests Pending * PSA Total 04/24/24 [facility] evaluation noteNo assessment information available [facility] Work Phone: Evaluation note* Diagnosis Onset Date Resolution Status Cellulitis of right upper arm noneactive Abscess of arm, right acute Arm mass acute BPH (benign prostatic hyperplasia) acute [facility] Work Phone: Evaluation note* Diagnosis Onset Date Resolution Status Cellulitis of right upper arm noneactive Abscess of arm, right resolv ed Arm mass resolved Encounter for removal of sutures acute Other specified postprocedural states acute Cellulitis of right upper arm noneactive 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[place] Encounter for coordination of complex care acute History of abscess of skin and subcutaneous tissue acute 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[place] Encounter for coordination of complex care acute History of abscess of skin and subcutaneous tissue acute [facility] Work Phone: Evaluation note* Diagnosis Cutaneous B-cell lymphoma- Primary Other malignant lymphomas, unspecified site, extranodal and solid organ sites CLL (chronic lymphocytic leukemia) Chronic lymphoid leukemia, without mention of having achieved remission Genetic anomalies of leukocytes documented in this encounter [facility] Author Janene Crump [facility] December 31, 2022 9:46am Note Date/Time December 31, 2022 9:46a m [facility] [address] [place] [address] Gastroenterology H&P Signed Patient: Mily Ibrahim MR#: [id number] : 1955 Acct:[id number] Age/Sex: 67 / M Adm Date: 3 Loc: Room: Type: [facility] Attending Dr: Janene Crump MD Copies to: [...] By: <Electronically signed by Janene Crump MD> 12/31/22 0946 [facility] Work Phone: History general Narrative - Reported* Type Description Date Surgical History polyp removal from sinus Surgical History tonsillectomy [facility] Other Hospital course Narrative No data available for this section [facility] Hospital Discharge instructions Additional Instructions DISCHARGE INSTRUCTIONS [...] years. -Follow up with PCP. -Office number [phone]. [facility] Work Phone: Progress note No data available for this section [facility] reason for referral (narrative)* Consultation (Urgent) - New Request Specialty Diagnoses / Procedures Referred By Missy esquivel Referred To Contact Dermatology Diagnoses CLL (chronic lymphocytic leukemia) Shannan Box MD [address] [place] [address] Referral ID Status Reason Start Date Expiration Date V isits Requested Visits Authorized [id number] New Request 05/29/2024 06/23/2025 1 1 * Consultation (Routine) - New Request Specialty Diagnoses / Procedures Referred By Contac t Referred To Contact Clinical Pathology/Laboratory Medicine Diagnoses CLL (chronic lymphocytic leukemia) Sherin Nash APRN-CNP [address] [place] [address] Referral ID Status Reason Start Date Expiration Date V isits Requested Visits Authorized [id number] New Request 05/29/2024 06/23/2025 1 1 * Consultation (Routine) - New Request Specialty Diagnoses / Procedures Referred By Contac t Referred To Contact Clinical Pathology/Laboratory Medicine Diagnoses Cutaneous B-cell lymphoma Sherin Nash APRN-CNP [address] [place] [address] Referral ID Status Reason Start Date Expiration Date V isits Requested Visits Authorized [id number] New Request 05/29/2024 06/23/2025 1 1 [facility] Chief Complaint and Reason for Visit Chief [...] of skin and subcutaneous tissue Advance Directives Advance Directive Response Recorded Date/ Time Advance Directives nn May 29, 2018 2:23pm Advance Directive Response Recorded Date/ Time Advance Directives No December 29 8:50am Summary Purpose Family History Relationship Condition Age at Onset Recorded Date/T [...] Team Status: Active Member Role Status Dates [place] Silva Primary Care Provider Active Team Status: Inactive Member Role Status Dates NON STAFF Primary Care Provider Active Start: February 26, 2024 End: February 26, 2024 Carlotta Ferrer APRN Attending Provider Active Start: February 26, 2024 End: February 26, 2024 Team Status: Inactive Member Role Status Dates Antony Thompson , Admit Provider, Atte nding Provider Active Start: February 27, 2024 End: March 01, 2024 Ata Celestin DO Other Provider Active Start : February 27, 2024 End: March 01, 2024 Qiana Andre PRE CODER-C Primary Care Provider Active Start: February 27, 2024 End: March 01, 2024 Team Status: Active Member Role Status Dates NON STAFF Primary Care Provider Active Start: February 28, 2024 Antony Thompson , Admit Provider, Other Provider Act vikas Start: February 28, 2024 Ata Celestin DO Attending Provider, Other Provide r Active Start: February 28, 2024 Team Status: Inactive Member Role Status Dates Enoch Han DO Attending Provider Active St art: March 19, 2024 End: March 19, 2024 Qiana Andre PRE CODER-C Primary Care Provider Active Start: March 19, 2024 End: March 19, 2024 Team Status: Inactive Member Role Status Dates Qiana Andre PRE CODER-C Primary Care Provider Active Start: March 29, 2024 End: March 29, 2024 Maria Ines Hanley MD Attending Provider Active Start: March 29, 2024 End: March 29, 2024 Enoch Han DO Referring Provider Active St art: March 29, 2024 End: March 29, 2024 Team Status: Active Member Role Status Dates Qiana Andre PRE CODER-C Primary Care Provider Active Start: April 12, 2024 Maria Ines Hanley MD Attending Provider Active Start: April 12, 2024 Enoch Han DO Referring Provider Active St art: April 12, 2024 Team Status: Inactive Member Role Status Dates Qiana Andre PRE CODER-C Primary Care Provider Active Start: April 12, 2024 End: April 12, 2024 Maria Ines Hanley MD Attending Provider Active Start: April 12, 2024 End: April 12, 2024 Team Status: Inactive Member Role Status Dates Qiana Andre PRE CODER-C Primary Care Provider Active Start: April 17, 2024 End: April 17, 2024 Jered Leon MD Attending Provider Active Sta rt: April 17, 2024 End: April 17, 2024 Team Status: Inactive Member Role Status Dates Qiana Andre , PRE CODER-C Primary Care Provider Active Start: April 20, 2024 End: April 20, 2024 Jered Leon MD Attending Provider Active Sta rt: April 20, 2024 End: April 20, 2024 Bartenders Relationship Specialty Start Date End Date Thai Qiana [address] [place] [address] PCP - General Certified Nurse Practitioner 05/29/24 Shannan Box MD [address] [place] [address] Oncologist Hematology 05/24/24 Maria Ines Hanley MD [address] [place] [id number] Hematology 05/24/24 Goals (unrecognized section and content) Goals may be documented in a n alternate section (unrecognized sect ion and content) No Status Records FoundNo Status Records FoundNo Status Records FoundNo Status Records FoundNo Status Records FoundNo Status Records Found INFORMATION SOURCE (unrecogn ized section and content) DATE CREATED AUTHOR [facility]/05/2022 [facility] DATE CREATED AUTHOR AUTHOR'S ORGANIZ ATION 04/26/2024 [facility] DATE CREATED AUTHOR AUTHOR'S ORGANIZ ATION 04/30/2024 [facility] EPIC DATE CREATED AUTHOR AUTHOR'S ORGANIZ ATION 05/21/2024 [facility] DATE CREATED AUTHOR AUTHOR'S ORGANIZ ATION 05/30/2024 [facility] DATE CREATED AUTHOR AUTHOR'S ORGANIZ ATION 06/01/2024 [facility] REASON FOR VISIT (unrecogniz ed section and content) Reason Comments New Patient Specialty Diagnoses / Procedures Referred By Contac t Referred To Contact Hematology & Oncology Diagnoses Cutaneous B-cell lymphoma Maria Ines Hanley MD [address] [place] [id number] [facility] [address] [place] [address] Referral ID Status Reason Start Date Expiration Date V isits Requested Visits Authorized [id number] New Request 05/23/2024 06/17/2025 1 1 FOR RECORDS PERTAINING TO PATIENTS WHO ARE [...] BE BASED ON THE PRIMARY CLINICAL RECORDS. [facility] [employer] provides no warranty or guarantee of the accuracy or completeness of information in this document.
--- NOTE | 2024-06-11 07:42 | US_ITS ---
[address] [address] Patient Name: MILY GUADALUPE MRN: [id number] date: 1955 Sex: M Assigned Patient Location: US Current Patient Location: US Accession/Order Number: [id number] Exam Date: 06/11/2024 08:25 Report Date: 06/11/2024 09:01 At the request of: QIANA ANDRE Procedure: US biopsy thyroid EXAMINATION: US biopsy thyroid HISTORY: Right Thyroid Nodules COMPARISON: No relevant comparison available. TECHNIQUE: After obtaining informed consent, an ultrasound-guided biopsy was performed in the usual sterile manner. FINDINGS: IMAGING: Ultrasound BIOPSY NEEDLE: 2 inch 25-gauge SPECIMEN TYPE, #, LOCATION: 3 fine-needle aspirates, 3 cm right thyroid nodule MEDICATION: 3 cc 1% buffered lidocaine COMPLICATIONS: None. LABORATORY: Pathology and molecular studies OTHER: Negative. US/US biopsy thyroid IMPRESSION: Uneventful ultrasound guided biopsy. The patient was instructed to obtain follow up care and biopsy results from the referring physician. Electronically authenticated by: LUIS HALL Date: 06/11/2024 09:01
[2024-06-11 07:50] VITALS: BP 126/82; PULSE 69; O2SAT 96
[2024-06-11] MEDS: LIDOCAINE HCL 10 ML, SODIUM BICARBONATE 1 MEQ INJ (08:25)
--- NOTE | 2024-06-11 11:03 | SUR.PREOP ---
06/04/24 Pt instructed on procedure, date, time, and prep.
== END 2024-06-11 08:47 | disposition home or self-care (01) ==
LOC: US 07:36
PROVIDERS: Radiology Diagnostic Radiology; PCP Nurse Practitioner; Visit Provider Nurse Practitioner
DX: E04.1 Nontoxic single thyroid nodule (principal)
CPT/HCPCS: 10005; 88173

== ENCOUNTER 2024-08-09 06:51 | Outpatient (OUT) | payer MEDICARE, SELFPAY | END 2024-08-09 06:52 | disposition home or self-care (01) | LOC: LAB 06:54 | PROVIDERS: PCP Nurse Practitioner | DX: C91.10 Chronic lymphocytic leukemia of B-cell type not having achieved remission (principal) | CPT/HCPCS: 36415; 87799 ==

== ENCOUNTER 2024-10-18 06:43 | Outpatient (OUT) | payer MEDICARE, SELFPAY ==
--- OUTSIDE RECORDS SUMMARY | 2024-10-18 06:47 | XMS_ITS | CCD ---
Author Organization [facility] Care Team Providers Care Environmental Programs Specialist Name Role Phone FUAD SUNSHINE Primary Care Physician [phone] MD Fuad Sunshine Primary Care Provider KARISHMA [...] SUNSHINE ., DR FUAD Stallworth Consulting Unavailable SUNSHINEFUAD Primary Care Physician MD Fuad Sunshine Primary Care Provider MD Janene Crump Attending Provider Ganga, Anjelica Unavailable Qiana Andre Primary Care Physician [phone] KEHINDE Fisher Marika Attending Provider [phone] NON STAFF Primary Care Provider UnavailDO Antony Veronica Admit Provider DO Antony Thompson Attending Provider [phone] DO Ata Celestin Other Provider [phone] Jocelynn, BIOINFORMATICS ENGINEER-C Qiana Mcdonough Primary Care Provider [phone] MD Maria Ines Hanley Attending Provider DO Enoch Han Referring Provider MD Jreed Leon Attending Provider [phone] LEON V, JERED Attending Unavailable LEON V, JERED Attending Unavailable Shannan Box MD Unavailable Maria Ines Hanley MD Unavailable Jocelynn, Qiana Primary Care Provider [phone] Jocelynn BIOINFORMATICS ENGINEER-C, Qiana Mcdonough Primary Care Provider Jered Leon MD Attending Provider [phone] Maria Ines Hanley MD Attending Provider Enoch Han DO Referring Provider [phone] Hector Ledbetter MD, V Attending Provider [phone] Burton Arita MD Primary Care Provider Unavailable Primary Care Provider Unavailabl e Jocelynn, Qiana Vidal Attending Unavailable Marika Fisher X Attending Unavailable Marika Fisher Attending Unavailable Kassidy Cunningham Attending Unavailable Jocelynn, Qiana Vidal Admitting Unavailable Jocelynn, Qiana Vidal Attending Unavailable ADRIANA BEY Attending Unavailable Jocelynn, Qiana Vidal Attending Unavailable Jocelynn, Qiana Vidal Attending Unavailable Jocelynn, Qiana Vidal Attending Unavailable Jocelynn, Qiana Mcdonough Primary Care Unavailable Hector Ledbetter V Admitting Unavailable Hector Ledbetter V Attending Unavailable JocelynnQiana Primary Care Unavailable Leon, Jered Admitting Unavailable Leon, Jered Attending Unavailable Marika Fisher Admitting Unavailable Marika Fisher Attending Unavailable NON STAFF Primary Care Unavailable Enoch Han Referring Unavailable JocelynnQiana Primary Care Unavailable Talon, Maria Ines Admitting Unavailable Talon, Maria Ines Attending Unavailable Antony Thompson Admitting Unavailable Antony Thompson Attending Unavailable Jocelynn, Qiana Mcdonough Primary Care Unavailable Ata Celestin Consulting Unavailable JocelynnQiana Primary Care Unavailable Leon, Jered Admitting Unavailable Leon, Jered Attending Unavailable QIANA ANDRE Referring Unavailable QIANA ANDRE Primary Care Unavailable SHANNAN BOX Attending Unavailable MARIA INES HANLEY Referring Unavailable QIANA ANDRE Primary Care Unavailable SHANNAN BOX Attending Unavailable Allergies Allergy Classification Reported Allergen(s) Allergy Type Date of Onset Reaction(s) Facility (1 source) No Known Medication Allergies; Translations: [No Known Medication Allergies] Propensity to adverse reactions (disorder) [facility] Repository Medications Current Medications Medication Drug Class(es) Dates Sig (Normalized) Sig (Original) acetaminophen 325 mg / HYDROcodone bitartrate 5 mg oral tablet (4 sources) Opioid Agonist Start: 04-20-2024 hydroCODone-acetam inophen 5-325 MG tablet 1 tablet. 04/20/2024 Active Start: 04-20-2024 take 1 tablet by tessa th every six hours as needed for pain Hydrocodone-Acetaminophen 5-325 mg table t Active 1 TAB PO Q6H as needed for pain 18 12April 20, 2024 acetaminophen 250 mg / ibuprofen 125 mg oral tablet (4 sources) Nonsteroidal Anti-inflammatory Drug Start: 02-26-2024 take 1 tablet by mouth every six hours as needed for pain Ibuprofen-Acetaminophen 125-250 mg tablet Active 1 TAB PO Every 6 hours as needed for pain February 25, 2024 11:00pm famotidine 20 mg oral tablet (9 sources) Histamine-2 Receptor Antagonist Start: 12-31-2022 take 1 tablet by mouth once daily at bedtime Famotidine 20 mg Tablet Active 20 MG PO Daily at bedtime December 30, 2022 11:00pm Pepcid Active finasteride 5 mg oral tablet (16 sources) 5-alpha Reductase Inhibitor Start: 07-30-2021 take 1 tablet by mouth once daily finasteride (Proscar) 5 MG tablet Take 5 mg by mouth Daily 03/29/2024 Active gabapentin 100 mg oral capsule (1 source) [...] Ordered tamsulosin hydrochloride 0.4 mg oral capsule (17 sources) alpha-Adrenergic Brent Start: 03-07-2024 take 1 capsule by mouth once daily tamsulosin (Flomax) 0.4 MG 24 hr capsule Take 0.8 mg by mouth Daily 03/07/2024 Active Start: 06-07-2018 take 2 capsules by m outh once daily at bedtime Tamsulosin (Flomax) 0.4 mg capsule Active 0.8 MG PO Daily at bedtime June 07, 2018 12:00am Start: 06-07-2018 take 1 capsule by mo uth once daily at bedtime Tamsulosin (Flomax) 0.4 mg capsule Active 0.4 MG PO Daily at bedtime June 07, 2018 1:00am Completed/Discontinued Medications Medication Drug Class(es) Dates Sig (Normalized) Sig (Original) cephalexin 500 mg oral capsule (4 sources) Cephalosporin Antibacterial Start: 02-26-2024 End: 03-01-2024 take 1 capsule by mouth four times daily Cephalexin 500 mg capsule Discontinued 500 MG PO Four times daily February 25, 2024 11:00pm March 01, 2024 12:22pm ciprofloxacin 500 mg oral tablet (7 sources) Quinolone Antimicrobial Start: 06-07-2018 End: 12-31-2022 take 1 tablet by mouth once daily Ciprofloxacin Hcl (Cipro) 500 mg tablet Discontinued 500 MG PO Daily June 07, 2018 12:00am December 31, 2022 8:24am raNITIdine 150 mg oral tablet (7 sources) Histamine-2 Receptor Antagonist Start: 06-07-2018 End: 12-31-2022 take 1 tablet by mouth at bedtime Ranitidine Hcl (Zantac) 150 mg Tablet Discontinued 150 MG PO Bedtime June 07, 2018 12:00am December 31, 2022 8:24am sulfamethoxazole 800 mg / trimethoprim 160 mg oral tablet (8 sources) Dihydrofolate Reductase Inhibitor Antibacterial, Sulfonamide Antimicrobial Start: 02-26-2024 End: 03-29-2024 take 1 tablet by mouth twice daily Sulfamethoxazole-T rimethoprim (Bactrim Ds) 800-160 mg tablet Discontinued 1 TAB PO Twice daily 20 March 01, 2024 1:49pm March 29, 2024 1:00pm terbinafine 250 mg oral tablet (7 sources) Allylamine Antifungal Start: 06-07-2018 End: 12-31-2022 take 1 tablet by mouth once daily Terbinafine Hcl 250 mg tablet Discontinued 250 MG PO Daily June 07, 2018 12:00am December 31, 2022 8:24am Problems Active Problems Problem Classification Problem Date Documented Date Episodic/Chronic Administrative/soci al admission (11 sources) Patient encounter status; Translations: [Other specified counseling] 03-30-2024 Episodic Chronic obstructive pulmonary disease and bronchiectasis (2 sources) Bronchitis 07-01-2023 Episodic Diseases of white blood cells (3 sources) Genetic anomaly of leukocyte; 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] Onset: 4 05-29-2024 Chronic Disorders of lipid metabolism (4 sources) Pure hypercholesterolemia, unspecified; Translations: [PURE HYPERCHOLESTEROLEMIA UNSPEC] Onset: 2 Chronic Genitourinary symptoms and ill-defined conditions (19 sources) Blood in urine; Translations: [Gross hematuria] Onset: 2 Episodic Hyperplasia of prostate (18 sources) Benign prostatic hypertrophy with outflow obstruction; Translations: [Benign prostatic hyperplasia with lower urinary tract symptoms] Onset: 2 Chronic Leukemias (4 sources) Chronic lymphoid leukemia, disease; Translations: [Chronic lymphocytic leukemia of B-cell type not having achieved remission] Onset: 5 05-29-2024 Chronic Malaise and fatigue (1 source) Other fatigue; Translations: [OTHER FATIGUE] Onset: 3 Episodic Non-Hodgkin`s lymphoma (20 sources) Non-Hodgkin's lymphoma of skin; Translations: [Unspecified B-cell lymphoma, extranodal and solid organ sites] Onset: 4 03-29-2024 Chronic Other aftercare (3 sources) Surgical follow-up; Translations: [Encounter for removal of sutures] 04-17-2024 Episodic Other aftercare (3 sources) Encounter for removal of sutures; Translations: [...] Onset: 3 Episodic Other nervous system disorders (2 sources) Acute postoperative pain; Translations: [Other acute postprocedural pain] 04-20-2024 Episodic Other skin disorders (4 sources) Mass of upper limb; Translations: [Localized swelling, mass and lump, unspecified upper limb] 02-27-2024 Episodic Other skin disorders (3 sources) History of skin and/or subcutaneous tissue disease; Translations: [Personal history of diseases of the skin and subcutaneous tissue] 03-30-2024 Episodic Other skin disorders (8 sources) Personal history of diseases of the skin and subcutaneous tissue; Translations: [Personal history of diseases of skin and subcutaneous tissue] 03-29-2024 Episodic Other upper respiratory infections (2 sources) Sinusitis 07-01-2023 Chronic Residual codes; unclassified (2 sources) Sleep apnea 03-06-2019 Chronic Residual codes; unclassified (2 sources) Obstructive sleep apnea syndrome 02-09-2023 Chronic Residual codes; unclassified (3 sources) Postprocedural state finding; Translations: [Other specified postprocedural states] 03-19-2024 Episodic Residual codes; unclassified (3 sources) Other specified postprocedural states; Translations: [Other postprocedural status] 03-19-2024 Episodic Residual codes; unclassified (1 source) Past history of procedure 03-02-2024 Episod ic Unclassified (4 sources) Finding of sensation of bladder 05-28-2019 Viral infection (2 sources) Herpes zoster 02-09-2023 Episodic Past or Other Problems Problem Classification Problem Date Documented Da te Episodic/Chronic Lymphadenitis (2 sources) Inguinal lymphadenopathy; Translations: [Localized enlarged lymph nodes] Onset: 04-20-2024 04-16-2024 Episodic Mood disorders (2 sources) Mood disorders Onset: 05-29-2024 Resolved: 08-21-2024 05-29-2024 Other gastrointestinal disorders (4 sources) Urgent desire for stool Resolved: 03-26-2019 03-26-2019 Episodic Other nervous system disorders (1 source) Other acute postprocedural pain; Translations: [Other acute postprocedural pain] Onset: 04-20-2024 Episodic Other screening for suspected conditions (not mental disorders or infectious disease) (14 sources) Raised prostate specific antigen; Translations: [Elevated prostate specific antigen [PSA]] Onset: 11-27-2021 Episodic Other skin disorders (4 sources) Localized swelling, mass and lump, unspecified upper limb; Translations: [Localized superficial swelling, mass, or lump] Onset: 02-27-2024 03-01-2024 Episodic Skin and subcutaneous tissue infections (16 sources) Abscess of right upper limb; Translations: [Cutaneous abscess of right upper limb] Onset: 02-27-2024 03-01-2024 Episodic Results Test Name Value Interpretation Reference Range Facility CBC AND ELECTRONIC DIFFon Basophils (Bld) [#/Vol] 0.04 10*3/uL 0.00 - 0.09 K/uL [facility] Basophils/100 WBC (Bld) 0.4 % [facility] Differential cell count method Nom (Bld) Electronic Differential O [facility] Eosinophils (Bld) [#/Vol] K/uL 0.00 - 0.48 K/uL [facility] Eosinophils/100 WBC (Bld) 0.1 % [facility] Erythrocyte distribution width (RBC) [Ratio] 13.3 % 10.9 - 14.3 % [facility] Hematocrit (Bld) [Volume fraction] 41.3 % 39.6 - 48.8 % [facility] Hemoglobin (Bld) [Mass/Vol] 14.2 g/dL 13.4 - 16.8 g/dL [facility] Immature granulocytes (Bld) [#/Vol] 0.06 10*3/uL NINF - 0.07 K/uL [facility] Immature granulocytes/100 WBC (Bld) 0.7 % [facility] Lymphocytes (Bld) [#/Vol] 2.74 10*3/uL 0.83 - 3.57 K/uL [facility] Lymphocytes/100 WBC (Bld) 30.5 % [facility] MCH (RBC) [Entitic mass] 30.0 pg 26.1 - 33.3 pg [facility] MCHC (RBC) [Mass/Vol] 34.4 g/dL 31.9 - 36.5 g/dL [facility] MCV (RBC) [Entitic vol] 87.3 fL 79.0 - 94.5 fL [facility] Monocytes (Bld) [#/Vol] 0.67 10*3/uL 0.24 - 0.93 K/uL [facility] Monocytes/100 WBC (Bld) 7.5 % [facility] Neutrophils (Bld) [#/Vol] 5.46 10*3/uL 1.57 - 6.19 K/uL [facility] Nucleated RBC/100 WBC (Bld) [Ratio] 0.0 % [facility] Platelet mean volume (Bld) [Entitic vol] 9.1 fL 8.7 - 12.3 fL [facility] Platelets (Bld) [#/Vol] 184 10*3/uL 146 - 337 K/uL [facility] RBC (Bld) [#/Vol] 4.73 10*6/uL [facility] Segmented neutrophils/100 WBC (Bld) 60.8 % [facility] WBC (Bld) [#/Vol] 8.98 10*3/uL 3.73 - 10.10 K/uL [facility] Abs Eos Auto < Normal 0.00-0.48 [facility] Comment on above: Performed By: #### L [id number] #### [facility] (DEFAULT) [address] [address] Basophils (Bld) [#/Vol] 0.04 10*3/uL Normal 0.00-0.09 [facility] Comment on above: Performed By: #### L [id number] #### [facility] (DEFAULT) [address] [address] Basophils/100 WBC (Bld) 0.4 % Normal [facility] Comment on above: Performed By: #### L [id number] #### [facility] (DEFAULT) [address] [address] DIFF STATUS Electronic Differential Normal [facility] Comment on above: Performed By: #### L [id number] #### [facility] (DEFAULT) [address] [address] Eosinophils/100 WBC (Bld) 0.1 % Normal [facility] Comment on above: Performed By: #### L [id number] #### [facility] (DEFAULT) [address] [address] Hematocrit (Bld) [Volume fraction] 41.3 % Normal 39.6-48.8 [facility] Comment on above: Performed By: #### L [id number] #### [facility] (DEFAULT) [address] [address] Hemoglobin (Bld) [Mass/Vol] 14.2 g/dL Normal 13.4-16.8 [facility] Comment on above: Performed By: #### L [id number] #### [facility] (DEFAULT) [address] [address] Immature Grans % 0.7 % Normal [facility] Comment on above: Performed By: #### L [id number] #### [facility] (DEFAULT) [address] [address] Immature Grans Absolute 0.06 K/uL Normal <=0.07 [facility] Comment on above: Performed By: #### L [id number] #### [facility] (DEFAULT) [address] [address] Lymphocytes (Bld) [#/Vol] 2.74 10*3/uL Normal 0.83-3.57 [facility] Comment on above: Performed By: #### L [id number] #### [facility] (DEFAULT) [address] [address] Lymphocytes/100 WBC (Bld) 30.5 % Normal [facility] Comment on above: Performed By: #### L [id number] #### [facility] (DEFAULT) [address] [address] MCV (RBC) [Entitic vol] 87.3 fL Normal 79.0-94.5 [facility] Comment on above: Performed By: #### L [id number] #### [facility] (DEFAULT) [address] [address] Mean Cell Hgb 30.0 pg Normal 26.1-33.3 [facility] Comment on above: Performed By: #### L [id number] #### [facility] (DEFAULT) [address] [address] Mean Cell Hgb Conc 34.4 g/dL Normal 31.9-36.5 [facility] Comment on above: Performed By: #### L [id number] #### [facility] (DEFAULT) [address] [address] Monocytes (Bld) [#/Vol] 0.67 10*3/uL Normal 0.24-0.93 [facility] Comment on above: Performed By: #### L [id number] #### [facility] (DEFAULT) [address] [address] Monocytes/100 WBC (Bld) 7.5 % Normal [facility] Comment on above: Performed By: #### L [id number] #### [facility] (DEFAULT) [address] [place] [address] Nucleated RBC 0.0 /100 WBC Normal <=0.2 [facility] Comment on above: Performed By: #### L [id number] #### [facility] (DEFAULT) [address] [place] [address] Platelet mean volume (Bld) [Entitic vol] 9.1 fL Normal 8.7-12.3 [facility] Comment on above: Performed By: #### L [id number] #### [facility] (DEFAULT) [address] [place] [address] Platelets (Bld) [#/Vol] 184 10*3/uL Normal 146-337 [facility] Comment on above: Performed By: #### L [id number] #### [facility] (DEFAULT) [address] [place] [address] RBC (Bld) [#/Vol] 4.73 10*6/uL Normal 4.38-5.83 [facility] Comment on above: Performed By: #### L [id number] #### [facility] (DEFAULT) [address] [place] [address] RBC Distribution 13.3 % Normal 10.9-14.3 [facility] Comment on above: Performed By: #### L [id number] #### [facility] (DEFAULT) [address] [place] [address] Segs + Bands Auto 60.8 % Normal [facility] Comment on above: Performed By: #### L [id number] #### [facility] (DEFAULT) [address] [place] [address] Segs + Bands,Absolute Auto 5.46 K/uL Normal 1.57-6.19 [facility] Comment on above: Performed By: #### L [id number] #### [facility] (DEFAULT) [address] [place] [address] WBC (Bld) [#/Vol] 8.98 10*3/uL Normal 3.73-10.10 [facility] Comment on above: Performed By: #### L [id number] #### [facility] (DEFAULT) [address] [place] [address] COMPREHENSIVE METABOLIC PANE Andrea 08-21-2024 Albumin [Mass/Vol] 3.7 g/dL 3.5 - 5.0 g/dL [facility] ALP [Catalytic activity/Vol] 45 U/L 32 - 126 U/L [facility] ALT [Catalytic activity/Vol] 17 U/L 10 - 52 U/L [facility] Anion gap [Moles/Vol] 8 mmol/L 7 - 17 mmol/L [facility] AST [Catalytic activity/Vol] 13 U/L 10 - 39 U/L [facility] Bilirubin [Mass/Vol] 0.5 mg/dL NINF - 1.5 mg/dL [facility] Calcium [Mass/Vol] 8.6 mg/dL 8.6 - 10. 5 mg/dL [facility] Chloride [Moles/Vol] 110 mmol/L High 98 - 10 8 mmol/L [facility] CO2 [Moles/Vol] 28 mmol/L 21 - 31 mmol/L [facility] Creatinine [Mass/Vol] 1.00 mg/dL 0.70 - 1.30 mg/dL [facility] eGFR, CKD-EPI, Male 79 - PINF [facility] Comment on above: Reported eGFR is bas ed on the CKD-EPI 2020 equation using creatinine, age, and sex. Glucose [Mass/Vol] 117 mg/dL High 70 - 99 mg/dL [facility] Interpretation and review of laboratory results Abnormal [facility] Osmolality Calc [Osmolality] 298 [facility] Potassium [Moles/Vol] 4.0 mmol/L 3.5 - 5.0 mmol/L [facility] Protein [Mass/Vol] 5.9 g/dL Low 6.4 - 8.3 g/dL [facility] Sodium [Moles/Vol] 142 mmol/L 135 - 145 mmol/L [facility] Urea nitrogen [Mass/Vol] 14 mg/dL 7 - 25 mg/dL [facility] Urea nitrogen/Creatinine [Mass ratio] 14 mg/mg [facility] Albumin [Mass/Vol] 3.7 g/dL Normal 3.5-5.0 [facility] Comment on above: Performed By: #### L DO, CMPN #### [facility] (DEFAULT) [address] [place] [address] ALP [Catalytic activity/Vol] 45 U/L Normal 32-126 [facility] Comment on above: Performed By: #### L DO, CMPN #### [facility] (DEFAULT) [address] [place] [address] ALT [Catalytic activity/Vol] 17 U/L Normal 10-52 [facility] Comment on above: Performed By: #### L DO, CMPN #### [facility] (DEFAULT) [address] [place] [address] Anion gap [Moles/Vol] 8 mmol/L Normal 7-17 [facility] Comment on above: Performed By: #### L DO, CMPN #### [facility] (DEFAULT) [address] [place] [address] AST [Catalytic activity/Vol] 13 U/L Normal 10-39 [facility] Comment on above: Performed By: #### L DO, CMPN #### [facility] (DEFAULT) [address] [place] [address] Bilirubin [Mass/Vol] 0.5 mg/dL Normal <1.5 [facility] Comment on above: Performed By: #### L DO, CMPN #### [facility] (DEFAULT) [address] [place] [address] Calcium [Mass/Vol] 8.6 mg/dL Normal 8.6-10.5 [facility] Comment on above: Performed By: #### L DO, CMPN #### [facility] (DEFAULT) [address] [place] [address] Chloride [Moles/Vol] 110 mmol/L High 98-108 [facility] Comment on above: Performed By: #### L , CMPN #### [facility] (DEFAULT) [address] [place] [address] CO2 [Moles/Vol] 28 mmol/L Normal 21-31 [facility] Comment on above: Performed By: #### L , CMPN #### [facility] (DEFAULT) [address] [place] [address] Creatinine [Mass/Vol] 1.00 mg/dL Normal 0.70-1.30 [facility] Comment on above: Performed By: #### L , CMPN #### [facility] (DEFAULT) [address] [place] [address] GFR/1.73 sq M.predicted among non-blacks MDRD (S/P/Bld) [Vol rate/Area] 81 mL/min/{1.73_m2} Normal >=60 [facility] Comment on above: Result Comment: Repo rted eGFR is based on the CKD-EPI 2020 equation using creatinine, age, and sex. Performed By: #### L , CMPN #### [facility] (DEFAULT) [address] [place] [address] Glucose [Mass/Vol] 117 mg/dL High 70-99 [facility] Comment on above: Performed By: #### L , CMPN #### [facility] (DEFAULT) [address] [place] [address] Osmolality [Osmolality] 298 mosm/kg Normal 278-305 [facility] Comment on above: Performed By: #### L , CMPN #### [facility] (DEFAULT) [address] [place] [address] Potassium [Moles/Vol] 4.0 mmol/L Normal 3.5-5.0 [facility] Comment on above: Performed By: #### L , CMPN #### [facility] (DEFAULT) [address] [place] [address] Protein [Mass/Vol] 5.9 g/dL Low 6.4-8.3 [facility] Comment on above: Performed By: #### L DO, CMPN #### [facility] (DEFAULT) [address] [place] [address] Sodium [Moles/Vol] 142 mmol/L Normal 135-145 [facility] Comment on above: Performed By: #### L DO, CMPN #### [facility] (DEFAULT) [address] [place] [address] Urea nitrogen [Mass/Vol] 14 mg/dL Normal 7-25 [facility] Comment on above: Performed By: #### L DO, CMPN #### [facility] (DEFAULT) [address] [place] [address] Urea nitrogen/Creatinine [Mass ratio] 14 mg/mg Normal [facility] Comment on above: Performed By: #### L DO, CMPN #### [facility] (DEFAULT) [address] [place] [address] EXTRA LAVENDER TOPon 025 [facility] LACTATE DEHYDROGENASEon 08-02 Interpretation and review of laboratory results Normal [facility] LDH Lactate to pyruvate reaction [Catalytic activity/Vol] 146 U/L 100 - 190 U/L [facility] LD Total 146 U/L Normal 100-190 [facility] Comment on above: Performed By: #### L DO, CMPN #### [facility] (DEFAULT) [address] [place] [address] No Panel Informationon 08-21 [facility] Family Medicine Office/Clini c Noteon 07-20-2024 Family Medicine Office/Clinic Note Family Medicine Office/Clinic Note HPI Staff Mily is a 68 year old male presenting with Onset: started yesterday Headache- no Earache- no Sinus Congestion- yes Rhinorrhea- yes Sore Throat- yes Cough- yes wheezing- no Dyspnea on exertion- no Orthopnea- Trouble laying flat/breathing through nose: no Lung Hx (asthma, recurring bronchitis/chest colds, COPD)- no Fevers/chills- no GI symptoms- no noon he took an Advil helped a little bit with his sinus pressure History of Present Illness pt presents today for URI symptoms Review of Systems PHQ Score Initial Depression Screen Score: 0 SCORE Physical Exam Vitals & Measurements T: 35.7 ???C(Oral) HR: 84(Peripheral) RR: 20 BP: 128/84 SpO2: 96% HT: 73 in HT: 185.0 cm WT: 103.6 kg WT: 228.399 lb BMI: 30.27 General: alert, no acute distress ENMT: oral mucosa moist, no pharyngeal erythema or exudate, sinus tenderness, LAURA TM full of fluid, right canal and TM red Cardiovascular: regular rate and rhythm, normal peripheral perfusion Respiratory: Lungs CTA, respirations non labored Extremities: no deformity, no trauma Neurological: oriented x 4, LOC appropriate for age, CN II-XII intact, motor strength equal & normal bilaterally, speech normal Assessment/Plan 1. Sinusitis (J32.9: Chronic sinusitis, unspecified) severe nasal congestion, sinus pressure and tenderness. flu and covid tests both negative in office today. Ordered: amoxicillin-clavulanate, = 1 tab(s), Oral, q12hr, X 7 day(s), # 14 tab(s), Refills(s) 0, Pharmacy: [facility] #[facility], 185, cm, 07/20/24 14:03:00 EST, Height/Length Dosing, 103.6, kg, 07/20/24 14:03:00 EST, Weight Dosing fluticasone nasal, 1 spray(s), Nasal, BID, 16 gram, Refill(s) 0, each nostril, [facility], 185, cm, 07/20/24 14:03:00 EST, Height/Length Dosing, 103.6, kg, 07/20/24 14:03:00 EST, Weight Dosing 2. Fluid level behind tympanic membrane of both ears (H65.93: Unspecified nonsuppurative otitis media, bilateral) will send medrol dose pack Ordered: amoxicillin-clavulanate, = 1 tab(s), Oral, q12hr, X 7 day(s), # 14 tab(s), Refills(s) 0, Pharmacy: [facility], 185, cm, 07/20/24 14:03:00 EST, Height/Length Dosing, 103.6, kg, 07/20/24 14:03:00 EST, Weight Dosing fluticasone nasal, 1 spray(s), Nasal, BID, 16 gram, Refill(s) 0, each nostril, [facility], 185, cm, 07/20/24 14:03:00 EST, Height/Length Dosing, 103.6, kg, 07/20/24 14:03:00 EST, Weight Dosing 3. Non-smoker (Z78.9: Other specified health status) continue not smoking Ordered: amoxicillin-clavulanate, = 1 tab(s), Oral, q12hr, X 7 day(s), # 14 tab(s), Refills(s) 0, Pharmacy: [facility], 185, cm, 07/20/24 14:03:00 EST, Height/Length Dosing, 103.6, kg, 07/20/24 14:03:00 EST, Weight Dosing fluticasone nasal, 1 spray(s), Nasal, BID, 16 gram, Refill(s) 0, each nostril, [facility], 185, cm, 07/20/24 14:03:00 EST, Height/Length Dosing, 103.6, kg, 07/20/24 14:03:00 EST, Weight Dosing Body Mass Index (BMI) documented 3008F Current [...] BP <130 mm Hg (Most Recent) 3074F 4. BMI 30.0-30.9,adult (Z68.30: Body mass index [BMI] 30.0-30.9, adult) BMI education given Ordered: amoxicillin-clavulanate, = 1 tab(s), Oral, q12hr, X 7 day(s), # 14 tab(s), Refills(s) 0, Pharmacy: [facility], 185, cm, 07/20/24 14:03:00 EST, Height/Length Dosing, 103.6, kg, 07/20/24 14:03:00 EST, Weight Dosing fluticasone nasal, 1 spray(s), Nasal, BID, 16 gram, Refill(s) 0, each nostril, [facility] #[facility], 185, cm, 07/20/24 14:03:00 EST, Height/Length Dosing, 103.6, kg, 07/20/24 14:03:00 EST, Weight Dosing Body Mass Index (BMI) documented 3008F Current [...] BP <130 mm Hg (Most Recent) 3074F 5. Exogenous obesity (E66.09: Other obesity due to excess calories) see above Ordered: amoxicillin-clavulanate, = 1 tab(s), Oral, q12hr, X 7 day(s), # 14 tab(s), Refills(s) 0, Pharmacy: [facility], 185, cm, 07/20/24 14:03:00 EST, Height/Length Dosing, 103.6, kg, 07/20/24 14:03:00 EST, Weight Dosing fluticasone nasal, 1 spray(s), Nasal, BID, 16 gram, Refill(s) 0, each nos (more content not included)... Normal [facility] Comment on above: Result Comment: Elec tronically Signed By: Qiana Gayle\.br\Date and Time Signed: 07/20/24 14:21 EST SURG PATH REQUESTon 07-06-20 24 Addendum Normal [facility] Comment on above: Result Comment: Subs equently received on July 30, 2024 is one (1) paraffin block marked [id number] (A1) which is submitted to the [facility] for recutting and additional staining: CD3, PAX5, CD30, Ki67 quantitative, SOX11, NUNU-LINA. The CD3 highlights background T-cells, predominantly small forms. The CD30 stains a few intermediate to large cells some of them with Golgi staining in about <5% but >1%. PAX5 highlights all B-cells. The Ki67 highlights the expanded proliferation centers and up to 40%. SOX11 is negative. Though NUNU-LINA shows rare scattered positive cells in majroty of the lymphoid cells, two clusters of positive cells as high as about 10% focally are present and appear located in the proliferation centers. These findings support the final diagnosis. The positive EBV indicates EBV infection might play a role in these progressive changes. Clinical correlation with ancillary laboratory tests is recommended. All controls show appropriate reactivity. All immunohistochemistry (IHC), in situ hybridization (LINA), and histochemical tests were developed by and are performed at the [facility] Clinical Laboratory, Histology and IHC Lab, [address] [place] [address]. All Immunofluorescent (IF) tests were developed by and are performed at the [facility] Clinical Laboratory, Renal Division, [address] [place] [address]. All tests reported here, except for PD-L1, have not been cleared by or approved by the US Food and Drug Administration (FDA). The laboratory is regulated under CLIA as qualified to perform high-complexity testing. The tests are used for clinical purposes. They should not be regarded as investigational or for research. Addendum electronically signed by Isaac Schwartz MD on 08/02/2024 at 2:36 PM Performed By: #### L , DANA #### [facility] (DEFAULT) [address] [place] [address] Case Report Normal [facility] Comment on above: Result Comment: Surg ical Pathology Report Case: [id number] Authorizing Provider: AL Steele Collected: 07/06/2024 08:59 AM Ordering Location: [facility] Received: 07/06/2024 08:58 AM [place] Pathologist: Isaac Schwartz MD Specimen: SURG PATH, Right inguinal lymph node Performed By: #### L , OLGAN #### [facility] (DEFAULT) [address] [address] Diagnosis Comments The patient's histor y of right arm ulcer admixed iwth CLL/SLL is noted (03/01/2024). 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 Additional immunostains might be needed to rule out EBV infections when the block is available (requested on 07/12/2024). Normal [facility] Comment on above: Performed By: #### L , OLGAN #### [facility] (DEFAULT) [address] [address] Gross Description Normal [facility] Comment on above: Result Comment: The following material(s) are received from [facility], [address] [place] [address] with an identifying Surgical Pathology Report, along with a copy of the Flow Cytometry: Hematologic Neoplasia Assessment Report, the Cytogenetic Analysis Report, the CLL FISH Panel TargetGene? Analysis Fluorescence in situ Hybridization (FISH) Report, the Summary of Results [facility], and the Surgical Pathology Consultation Report (05/17/2024) performed at [facility] at [facility]: 8 H&E slide(s), 16 non-H&E slide(s) labeled [id number]. Outside pathology materials are returned in sixty (60) days under separate cover with our number recorded on them. Grosser for this case was: Ruth Hampton Performed By: #### L , OLGAN #### [facility] (DEFAULT) [address] [address] Microscopic Description [facility] Comment on above: Result Comment: A mi croscopic examination was performed. Synoptic report Specimen Site: Right inguinal lymph node Procedure: Biopsy Diagnosis: Accelerated chronic lymphocytic leukemia/small lymphocytic lymphoma (CLL/SLL) Microscopic Description: Sections of lymph node show effacement of normal architecture with diffuse infiltrate of atypical lymphoid cells. The lymphocytes are predominantly small in size with scant cytoplasm, round nuclear contours, clumped chromatin, and inconspicuous nucleoli. There are areas with larger cells with moderate amount of cytoplasm, vesicular chromatin, and occasional prominent nucleoli consistent with proliferation centers. There are large prominent/confluent proliferation centers. --Ancillary Studies-- Flow cytometry: Per outside report, there is an abnormal / monotypic CD5 positive B-cell population (66% of sample). Molecular studies: Per outside report, insufficient metaphases available for chromosome analysis. No results. FISH Studies: Per outside report, Fluorescence in situ hybridization (FISH) analysis was performed on cultured cells from this patient's specimen using DNA probes for CLL. Two hundred interphase nuclei were examined for each probe revealed trisomy 12 in 14.0% of nuclei. The signal pattern obtained with the remaining probes did not differ significantly from the normal controls. Special stains: Not performed Immunohistochemistry (IHC)/in situ hybridization (LINA): Neoplastic B-cells are positive for: CD5, CD20, PAX5, CD23, CD43, BCL2, and Ki67 (40% by manual quantification method) Neoplastic B-cells are negative for: CD56, CD68, CD3, CD10, CD21, CD30, BCL1, BCL6, and CD138 Other IHC findings: CD3 highlights background T lymphocytes. CD138 highlights scattered plasma cells. CD21 highlights few preserved follicular dendritic cell meshworks. Need blocks for additional stains for CD30, SOX11, CD45, and NUNU-LINA * The above synoptic report complies, in slightly modified form, with the guidelines of the [employer] [place] for the reporting of cancer specimens. *Lymphoid neoplasms are classified according to: - WHO Classification of Tumours Editorial Board. Haematolymphoid tumours. [place] (Paulina): International Agency for Research on Cancer; (WHO classification of tumours series, 5th ed.; vol. 11, 2021). https://publications.iarc.fr. - The International Consensus Classification of Mature Lymphoid Neoplasms: a report from the Clinical Advisory Committee. Blood. 2021Apr 15;140(11):8442-2348. doi: 10.1182/blood.7814338396. Erratum in: Blood. 2022Aug 26;141(4):437. PMID: 00550975; PMCID: [id number]. All controls show appropriate reactivity. Ki67 is evaluated by manual quantitative immunohistochemistry on formalin-fixed, paraffin-embedded tissue. The percentage of positive tumor cell nuclei is determined. All immunohistochemistry (IHC), in situ hybridization (LINA), and histochemical tests were developed by and are performed at the [facility] Clinical Laboratory, Histology and IHC Lab, [address] [place] [address]. All Immunofluorescent (IF) tests were developed by and are performed at the [facility] Clinical Laboratory, Renal Division, [address] [place] [address]. All tests reported here, except for PD-L1, have not been cleared by or approved by the US Food and Drug Administration (FDA). The laboratory is regulated under CLIA as qualified to perform high-complexity testing. The tests are used for clinical purposes. They should not be regarded as investigational or for research. Performed By: #### L DO, CMPN #### [facility] (DEFAULT) [address] [place] [address] Pathologic Diagnosis [facility] Comment on above: Result Comment: Outs rick Slides: [id number] (04/20/24) Right inguinal lymph node, excisional biopsies: Accelerated chronic lymphocytic leukemia/small lymphocytic lymphoma (CLL/SLL), see comment and synoptic report. Performed By: #### L DO, CMPN #### [facility] (DEFAULT) [address] [place] [address] Professional Interpretation Performed at: [facility] Comment on above: Result Comment: [facility] For Immediate Release [facility] [address] [place] [address] Performed By: #### L DO, CMPN #### [facility] (DEFAULT) [address] [place] [address] Case Report [facility] Comment on above: Result Comment: Surg ical Pathology Report Case: [id number] Authorizing Provider: AL Steele Collected: 07/06/2024 08:48 AM Ordering Location: [facility] Received: 07/06/2024 08:48 AM [place] Pathologist: Isaac Schwartz MD Specimen: SURG PATH, A) Right elbow abscess core; B) Abscess core; C) Abscess core #3; D) Abscess right elbow #4 Performed By: #### L DO, CMPN #### [facility] (DEFAULT) [address] [address] Diagnosis Comments The patient's histor y of right elbow abscess is noted. There are acute and chronic inflammation consistent with abscess admixed with chronic lymphocytic leukemia/small lymphocytic lymphoma (CLL/SLL). There are histologically atypical features including expanded proliferation centers with a relatively high Ki-67 proliferation fraction, however, no large cell transformation or Abdalla transformation is present. The histologically aggressive patterns in CLL/SLL in this case might be secondary to the inflammatory process. However, clinical correlation is recommended for infectious disease, possible prior chemotherapy/treatment and re-evaluation when the inflammation is controlled. Normal [facility] Comment on above: Performed By: #### L DO, CMPN #### [facility] (DEFAULT) [address] [address] Gross Description Normal [facility] Comment on above: Result Comment: The following material(s) are received from [facility], [address] [place] [address] with an identifying Surgical Pathology Report, along with a copy of the Surgical Pathology Reference Lab Consult Report performed at [facility]: 4 H&E slide(s), 9 non-H&E slide(s) labeled [id number]. Outside pathology materials are returned in sixty (60) days under separate cover with our number recorded on them. Grosser for this case was: Ruth Hampton Performed By: #### L DO, CMPN #### [facility] (DEFAULT) [address] [address] Microscopic Description Normal [facility] Comment on above: Result Comment: A mi croscopic examination was performed. Synoptic report Specimen Site: Right elbow abscess (part D) Procedure: Biopsy Diagnosis: Chronic lymphocytic leukemia/small lymphocytic lymphoma Microscopic Description: Sections show dense lymphoid infiltrate composed predominantly of small sized lymphocytes with scant cytoplasm, round nuclear contours, clumped chromatin, and inconspicuous nucleoli, as well as confluent areas of intermediate lymphoid cells with moderate amount of pale cytoplasm, vesicular chromatin, and prominent nucleoli, consistent with expanded proliferation centers. Noticed are presence of acute inflammation with neutrophilic infiltration, foamy macrophages and chronic fibrosis suggestive a chronic process, as well. --Ancillary Studies-- Flow cytometry: Not performed Molecular studies: Not performed Special stains: Not performed Immunohistochemistry (IHC)/in situ hybridization (LINA): Neoplastic B-cells are positive for: CD5, CD20, PAX5, and BCL2. Per outside report, lymphoid cells show weak variable cyclin D1 positivity in the expanded proliferation centers. MUM1 shows variable number of positive cells in different areas with varying intensity of staining, more in number in the proliferation centers. MYC also shows increased numbers of positive cells in the proliferation centers. Ki-67 shows approximately 60-70% positive cell in the proliferation centers, high proliferative activity in the residual germinal centers and 10-15% positive cells in the areas with a predominance of small lymphoid cells. [place]/Lambda LINA shows scattered polytypic plasma cells and a predominance of lambda positive lymphoid cells. Neoplastic B-cells are negative for: AE1/AE3, CD3, CD10, and BCL6. Per outside report, neoplastic B-cells are also negative for IRTA1, SOX11, TdT, and NUNU LINA. Other IHC findings: CD3 highlights admixed small positive T lymphocytes. Per outside report, CD21 highlights few residual follicular dendritic cell meshworks. * The above synoptic report complies, in slightly modified form, with the guidelines of the [employer] [place] for the reporting of cancer specimens. *Lymphoid neoplasms are classified according to: - WHO Classification of Tumours Editorial Board. Haematolymphoid tumours. Stroud (Paulina): International Agency for Research on Cancer; (WHO classification of tumours series, 5th ed.; vol. 11, 2021). https://publications.iarc.fr. - The International Consensus Classification of Mature Lymphoid Neoplasms: a report from the Clinical Advisory Committee. Blood. 2021Apr 15;140(11):8566-9546. doi: 10.1182/blood.3023472672. Erratum in: Blood. 2022Aug 26;141(4):437. PMID: 57278028; PMCID: [id number]. All controls show appropriate reactivity. Ki67 is evaluated by manual quantitative immunohistochemistry on formalin-fixed, paraffin-embedded tissue. The percentage of positive tumor cell nuclei is determined. All immunohistochemistry (IHC), in situ hybridization (LINA), and histochemical tests were developed by and are performed at the [facility] Clinical Laboratory, Histology and IHC Lab, [address] [place] [address]. All Immunofluorescent (IF) tests were developed by and are performed at the [facility] Clinical Laboratory, Renal Division, [address] [place] [address]. All tests reported here, except for PD-L1, have not been cleared by or approved by the US Food and Drug Administration (FDA). The laboratory is regulated under CLIA as qualified to perform high-complexity testing. The tests are used for clinical purposes. They should not be regarded as investigational or for research. Performed By: #### L DO, CMPN #### [facility] (DEFAULT) [address] [place] [address] Pathologic Diagnosis Normal [facility] Comment on above: Result Comment: Outs rick Slides: [id number] (03/01/24) Abscess, right elbow, biopsy: Acute and chronic inflammation with atypical lymphoid infiltrate, morphologically similar to that seen in part D. Abscess, right elbow, biopsy: Acute and chronic inflammation with atypical lymphoid infiltrate, morphologically similar to that seen in part D. Abscess, right elbow, biopsy: Acute and chronic inflammation with atypical lymphoid infiltrate, morphologically similar to that seen in part D. Abscess, right elbow, biopsy: Chronic lymphocytic leukemia/small lymphocytic lymphoma, see comment and synoptic report. Mild acute and chronic inflammation Performed By: #### L DO, CMPN #### [facility] (DEFAULT) [address] [place] [address] Professional Interpretation Performed at: [facility] Comment on above: Result Comment: [facility] For Immediate Release to Patient's [facility] Yes [address] [place] [address] Performed By: #### L DO, CMPN #### [facility] (DEFAULT) [address] [place] [address] Pathology study report docum entOrdered By: Teo Kaur on 06-15-2024 Pathology study [facility] Other Phone: Andrea 06-11-2024 L ------ Specimen: [id number] Received: 06/11/24 Status: KAEL Jamie Num: [id number] Spec Type: Cytology Subm Dr: Qiana Andre BEVEL GEAR GENERATOR OPERATOR Tissues: A FNA SLIDES NOPATH (RT THYR MID LOBE) Procedures: Cyto Int and Re, PAPN/Jessie Age/ Patient Sex Location Account Attending Physician Mily Ibrahim/Criss LABELL [id number] Hector Ledbetter MD SPEC NUM: [id number] RECD: 06/11/24 STATUS: KAEL MOR[place] NUM: [id number] [place]: 06/11/24- SUBM DR: Qiana Andre CNP ENTERED: 06/11/24 [facility] DR: Salazar,Lab SPEC TYPE: Cytology DEPT: [facility] ENTERED BY: [id number] RECV BY: [id number] ORDERED: Cyto Int and Re, PAPSTN/5 ORDERED: Cyto Int and Re, PAPSTN/5 Pathological Diagnosis Right thyroid nodule, FNA cytology: -Quite a few follicular groups are present, satisfactory for assessment -The follicular cells generally showing uniform ovoid nuclei, and only occasional follicular cells in rare groups containing small nucleoli, and overall are consistent with the Category 2 [place] System: Benign Clinical Information Right thyroid nodule, HX: of non Hodgkin lymphoma Gross Description Received fixed in Cytolyt is 1 ml red slightly hazy fixed fluid for cytology said to have been obtained as Right thyroid nodule mid lobe. ThinPrep preparations are prepared for microscopic examination. Also received are 4 spray fixed smeared slides for pap and a Veracyte vial stored at -20 for microscopic examination. (ID/nh) Specimen: [id number] Received: 06/11/24 Status: KAEL Jamie Num: [id number] Spec Type: Cytology Subm Dr: Qiana Andre CNP Tissues: A FNA SLIDES NOPATH (RT THYR MID LOBE) Procedures: Cyto Int and Re, PAPSTN/5 Patient: Mily Ibrahim [id number] (Continued) Specimen: [id number] Received: 06/11/24 (Continued) Signed (signature on file) Teo Kaur MD 06/15/24 1533 Specimen: [id number] Received: 06/11/24 Status: KAEL More[place] Num: [id number] Spec Type: Cytology Subm Dr: Qiana Andre BEVEL GEAR GENERATOR OPERATOR Tissues: A FNA SLIDES NOPATH (RT THYR MID LOBE) Procedures: Cyto Int and Re, PAPSTN/5 Patient: Mily Ibrahim [id number] (Continued) Specimen: [id number] Received: 06/11/24 (Continued) Microscopic Description Microscopic examinations are performed supporting the above interpretation CPT Codes 20636 Specimen: [id number] Received: 06/11/24 Status: KAEL Moreland Num: [id number] Spec Type: Cytology Subm Dr: Qiana Andre BEVEL GEAR GENERATOR OPERATOR Tissues: A FNA SLIDES NOPATH (RT THYR MID LOBE) Procedures: Cyto Int and Re, PAPSTN/5 Patient: Mily Ibrahim [id number] (Continued) Signed (signature on file) Koffi-Gavin Kaur MD 06/15/24 1533 Normal [facility] IGVH MUTATION ANALYSIS (SOMA TIC HYPERMUTATION), BLOOD, DATA ENTRYOrdered By: Adam Parker on 06-08-2024 [facility] IGVH MUTATION ANALYSIS, REESE LOrdered By: Swapnil Hammonds on 06-08-2024 % Divergence 0.3 [facility] Work Phone: IGH PCR Pattern Biallelic/biclonal [facility] Work Phone: IGVH Interpretation 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 In CLL, cases with unmutated IGVH are associated with unfavorable prognosis and shorter [id number]. Correlate with other prognostic markers for full risk stratification. Run and sample controls meet acceptable criteria. [facility] Work Phone: IGVH segment 169), 3(23) [facility] Work Phone: Method/Limitations: Method: RNA is extra cted from leukocytes, reverse transcribed, and the variable (V) region of the I[facility] transcripts amplified by polymerase chain reaction (PCR) to assess the presence or absence of a B-cell clonal rearrangement using two different consensus PCR reactions. One or both PCR products are then sequenced by the [place] method and compared to consensus IGVH segments using the [employer]-IGBLAST sequence library. Greater than or equal to [...] by the [facility] under the medical direction of Isaac Schwartz MD, PhD. It has not been cleared or approved by the U.S. Food and Drug Administrations. Since FDA (U.S. Food and Drug Administration) approval is not required for clinical use of this test, this laboratory has established and validated the test's accuracy and precision, pursuant to the requirement of CLIA '88. [facility] Work Phone: Mutation Status Unmutated [facility] Work Phone: Reviewed by Swapnil Hammonds MD, PhD [facility] Work Phone: [facility] Work Phone: BETA 2 MICROGLOBULIN SERUMOr dered By: Hanh Gibbs on 05-30-2024 [id number] [Mass/Vol] 2.63 ug/mL High 0.80 - 2.34 mg/L [facility] Interpretation and review of laboratory results Abnormal [facility] IGVH MUTATION ANALYSISOrdere d By: Medhat Carrasquillo on 05-30-2024 Receiving Status Accessioned in Lab [facility] RNA EXTRACTIONOrdered By: Rupal Velasquez on 05-30-2024 [facility] BETA 2 MICROGLOBULIN SERUMon 05-29-2024 Beta 2 Microglobulin 2.63 mg/L High 0.80-2.34 [facility] Comment on above: Performed By: #### B 2M #### [facility] (DEFAULT) [address] [place] [address] CBC AND ELECTRONIC DIFFon Basophils (Bld) [#/Vol] K/uL 0.00 - 0.09 K/uL [facility] Basophils/100 WBC (Bld) 0.2 % [facility] Differential cell count method Nom (Bld) Electronic Differential O [facility] Eosinophils (Bld) [#/Vol] K/uL 0.00 - 0.48 K/uL [facility] Eosinophils/100 WBC (Bld) 0.1 % [facility] Erythrocyte distribution width (RBC) [Ratio] 13.3 % 10.9 - 14.3 % [facility] Hematocrit (Bld) [Volume fraction] 43.6 % 39.6 - 48.8 % [facility] Hemoglobin (Bld) [Mass/Vol] 15.0 g/dL 13.4 - 16.8 g/dL [facility] Immature granulocytes (Bld) [#/Vol] 0.06 10*3/uL NINF - 0.07 K/uL [facility] Immature granulocytes/100 WBC (Bld) 0.7 % [facility] Lymphocytes (Bld) [#/Vol] 2.67 10*3/uL 0.83 - 3.57 K/uL [facility] Lymphocytes/100 WBC (Bld) 31.2 % [facility] MCH (RBC) [Entitic mass] 30.1 pg 26.1 - 33.3 pg [facility] MCHC (RBC) [Mass/Vol] 34.4 g/dL 31.9 - 36.5 g/dL [facility] MCV (RBC) [Entitic vol] 87.4 fL 79.0 - 94.5 fL [facility] Monocytes (Bld) [#/Vol] 0.57 10*3/uL 0.24 - 0.93 K/uL [facility] Monocytes/100 WBC (Bld) 6.7 % [facility] Neutrophils (Bld) [#/Vol] 5.24 10*3/uL 1.57 - 6.19 K/uL [facility] Nucleated RBC/100 WBC (Bld) [Ratio] 0.0 % NINF [facility] Platelet mean volume (Bld) [Entitic vol] 8.9 fL 8.7 - 12.3 fL [facility] Platelets (Bld) [#/Vol] 153 10*3/uL 146 - 337 K/uL [facility] RBC (Bld) [#/Vol] 4.99 10*6/uL [facility] Segmented neutrophils/100 WBC (Bld) 61.1 % [facility] WBC (Bld) [#/Vol] 8.57 10*3/uL 3.73 - 10.10 K/uL [facility] Abs Baso Auto < Normal 0.00-0.09 [facility] Comment on above: Performed By: #### L [id number] #### [facility] (DEFAULT) [address] [address] Abs Eos Auto < Normal 0.00-0.48 [facility] Comment on above: Performed By: #### L [id number] #### [facility] (DEFAULT) [address] [address] Basophils/100 WBC (Bld) 0.2 % Normal [facility] Comment on above: Performed By: #### L [id number] #### [facility] (DEFAULT) [address] [address] DIFF STATUS Electronic Differential Normal [facility] Comment on above: Performed By: #### L [id number] #### [facility] (DEFAULT) [address] [address] Eosinophils/100 WBC (Bld) 0.1 % Normal [facility] Comment on above: Performed By: #### L [id number] #### [facility] (DEFAULT) [address] [address] Hematocrit (Bld) [Volume fraction] 43.6 % Normal 39.6-48.8 [facility] Comment on above: Performed By: #### L [id number] #### [facility] (DEFAULT) [address] [place] [address] Hemoglobin (Bld) [Mass/Vol] 15.0 g/dL Normal 13.4-16.8 [facility] Comment on above: Performed By: #### L [id number] #### [facility] (DEFAULT) [address] [address] Immature Grans % 0.7 % Normal [facility] Comment on above: Performed By: #### L [id number] #### [facility] (DEFAULT) [address] [address] Immature Grans Absolute 0.06 K/uL Normal <=0.07 [facility] Comment on above: Performed By: #### L [id number] #### [facility] (DEFAULT) [address] [address] Lymphocytes (Bld) [#/Vol] 2.67 10*3/uL Normal 0.83-3.57 [facility] Comment on above: Performed By: #### L [id number] #### [facility] (DEFAULT) [address] [address] Lymphocytes/100 WBC (Bld) 31.2 % Normal [facility] Comment on above: Performed By: #### L [id number] #### [facility] (DEFAULT) [address] [address] MCV (RBC) [Entitic vol] 87.4 fL Normal 79.0-94.5 [facility] Comment on above: Performed By: #### L [id number] #### [facility] (DEFAULT) [address] [address] Mean Cell Hgb 30.1 pg Normal 26.1-33.3 [facility] Comment on above: Performed By: #### L [id number] #### [facility] (DEFAULT) [address] [address] Mean Cell Hgb Conc 34.4 g/dL Normal 31.9-36.5 [facility] Comment on above: Performed By: #### L [id number] #### [facility] (DEFAULT) [address] [place] [address] Monocytes (Bld) [#/Vol] 0.57 10*3/uL Normal 0.24-0.93 [facility] Comment on above: Performed By: #### L [id number] #### [facility] (DEFAULT) [address] [place] [address] Monocytes/100 WBC (Bld) 6.7 % Normal [facility] Comment on above: Performed By: #### L [id number] #### [facility] (DEFAULT) [address] [address] Nucleated RBC 0.0 /100 WBC Normal <=0.2 [facility] Comment on above: Performed By: #### L [id number] #### [facility] (DEFAULT) [address] [place] [address] Platelet mean volume (Bld) [Entitic vol] 8.9 fL Normal 8.7-12.3 [facility] Comment on above: Performed By: #### L [id number] #### [facility] (DEFAULT) [address] [address] Platelets (Bld) [#/Vol] 153 10*3/uL Normal 146-337 [facility] Comment on above: Performed By: #### L [id number] #### [facility] (DEFAULT) [address] [address] RBC (Bld) [#/Vol] 4.99 10*6/uL Normal 4.38-5.83 [facility] Comment on above: Performed By: #### L [id number] #### [facility] (DEFAULT) [address] [address] RBC Distribution 13.3 % Normal 10.9-14.3 [facility] Comment on above: Performed By: #### L [id number] #### [facility] (DEFAULT) [address] [address] Segs + Bands Auto 61.1 % Normal [facility] Comment on above: Performed By: #### L [id number] #### [facility] (DEFAULT) [address] [address] Segs + Bands,Absolute Auto 5.24 K/uL Normal 1.57-6.19 [facility] Comment on above: Performed By: #### L [id number] #### [facility] (DEFAULT) [address] [address] WBC (Bld) [#/Vol] 8.57 10*3/uL Normal 3.73-10.10 [facility] Comment on above: Performed By: #### L [id number] #### [facility] (DEFAULT) [address] [address] COMPREHENSIVE METABOLIC PANE Andrea 05-29-2024 Albumin [Mass/Vol] 4.1 g/dL 3.5 - 5.0 g/dL [facility] ALP [Catalytic activity/Vol] 42 U/L 32 - 126 U/L [facility] ALT [Catalytic activity/Vol] 15 U/L 10 - 52 U/L [facility] Anion gap [Moles/Vol] 9 mmol/L 7 - 17 mmol/L [facility] AST [Catalytic activity/Vol] 14 U/L 10 - 39 U/L [facility] Bilirubin [Mass/Vol] 0.6 mg/dL NINF - 1.5 mg/dL [facility] Calcium [Mass/Vol] 8.8 mg/dL 8.6 - 10. 5 mg/dL [facility] Chloride [Moles/Vol] 107 mmol/L 98 - 10 8 mmol/L [facility] CO2 [Moles/Vol] 28 mmol/L 21 - 31 mmol/L [facility] Creatinine [Mass/Vol] 0.93 mg/dL 0.70 - 1.30 mg/dL [facility] eGFR, CKD-EPI, Male 88 - PINF [facility] Comment on above: Reported eGFR is bas ed on the CKD-EPI 2020 equation using creatinine, age, and sex. Glucose [Mass/Vol] 101 mg/dL High 70 - 99 mg/dL [facility] Interpretation and review of laboratory results Abnormal [facility] Osmolality Calc [Osmolality] 293 [facility] Potassium [Moles/Vol] 4.2 mmol/L 3.5 - 5.0 mmol/L [facility] Protein [Mass/Vol] 6.4 g/dL 6.4 - 8.3 g/dL [facility] Sodium [Moles/Vol] 140 mmol/L 135 - 145 mmol/L [facility] Urea nitrogen [Mass/Vol] 13 mg/dL 7 - 25 mg/dL [facility] Urea nitrogen/Creatinine [Mass ratio] 14 mg/mg [facility] Albumin [Mass/Vol] 4.1 g/dL Normal 3.5-5.0 [facility] Comment on above: Performed By: #### L DO, CMPN #### [facility] (DEFAULT) [address] [address] ALP [Catalytic activity/Vol] 42 U/L Normal 32-126 [facility] Comment on above: Performed By: #### L DO, CMPN #### [facility] (DEFAULT) [address] [address] ALT [Catalytic activity/Vol] 15 U/L Normal 10-52 [facility] Comment on above: Performed By: #### L DO, CMPN #### [facility] (DEFAULT) [address] [address] Anion gap [Moles/Vol] 9 mmol/L Normal 7-17 [facility] Comment on above: Performed By: #### L DO, CMPN #### [facility] (DEFAULT) [address] [address] AST [Catalytic activity/Vol] 14 U/L Normal 10-39 [facility] Comment on above: Performed By: #### L DO, CMPN #### [facility] (DEFAULT) [address] [place] [address] Bilirubin [Mass/Vol] 0.6 mg/dL Normal <1.5 [facility] Comment on above: Performed By: #### L DO, CMPN #### [facility] (DEFAULT) [address] [place] [address] Calcium [Mass/Vol] 8.8 mg/dL Normal 8.6-10.5 [facility] Comment on above: Performed By: #### L DO, CMPN #### [facility] (DEFAULT) [address] [place] [address] Chloride [Moles/Vol] 107 mmol/L Normal 98-108 [facility] Comment on above: Performed By: #### L DO, CMPN #### [facility] (DEFAULT) [address] [place] [address] CO2 [Moles/Vol] 28 mmol/L Normal 21-31 [facility] Comment on above: Performed By: #### L DO, CMPN #### [facility] (DEFAULT) [address] [place] [address] Creatinine [Mass/Vol] 0.93 mg/dL Normal 0.70-1.30 [facility] Comment on above: Performed By: #### L DO, CMPN #### [facility] (DEFAULT) [address] [place] [address] GFR/1.73 sq M.predicted among non-blacks MDRD (S/P/Bld) [Vol rate/Area] 88 mL/min/{1.73_m2} Normal >=60 [facility] Comment on above: Result Comment: Repo rted eGFR is based on the CKD-EPI 2020 equation using creatinine, age, and sex. Performed By: #### L DO, CMPN #### [facility] (DEFAULT) [address] [place] [address] Glucose [Mass/Vol] 101 mg/dL High 70-99 [facility] Comment on above: Performed By: #### L DO, CMPN #### [facility] (DEFAULT) [address] [place] [address] Osmolality [Osmolality] 293 mosm/kg Normal 278-305 [facility] Comment on above: Performed By: #### L DO, CMPN #### [facility] (DEFAULT) [address] [place] [address] Potassium [Moles/Vol] 4.2 mmol/L Normal 3.5-5.0 [facility] Comment on above: Performed By: #### L DO, CMPN #### [facility] (DEFAULT) [address] [place] [address] Protein [Mass/Vol] 6.4 g/dL Normal 6.4-8.3 [facility] Comment on above: Performed By: #### L DO, CMPN #### [facility] (DEFAULT) [address] [place] [address] Sodium [Moles/Vol] 140 mmol/L Normal 135-145 [facility] Comment on above: Performed By: #### L DO, CMPN #### [facility] (DEFAULT) [address] [place] [address] Urea nitrogen [Mass/Vol] 13 mg/dL Normal 7-25 [facility] Comment on above: Performed By: #### L DO, CMPN #### [facility] (DEFAULT) [address] [place] [address] Urea nitrogen/Creatinine [Mass ratio] 14 mg/mg Normal [facility] Comment on above: Performed By: #### L DO, CMPN #### [facility] (DEFAULT) [address] [place] [address] CYTOGENETIC STUDIES (PERFORM ABLE)on 05-29-2024 Band Level 425 Normal [facility] Comment on above: Order Comment: Alejandra stallworth do not use this order for add-ons Place sample for CYTOGENETICS in Sodium (NA) heparin tube. Please do not use this order for add-ons Place sample for CYTOGENETICS in Sodium (NA) heparin tube. Performed By: #### BRETT [id number] #### [place] [facility] (DEFAULT) [address] [place] [address] Culture Method: Normal [facility] Comment on above: Order Comment: Alejandra stallworth do not use this order for add-ons Place sample for CYTOGENETICS in Sodium (NA) heparin tube. Please do not use this order for add-ons Place sample for CYTOGENETICS in Sodium (NA) heparin tube. Result Comment: Proc ess: 1 Duration: 72 Hr Media: Marrow Max Mitogen: PKW/PMA/CpG Banding: GTW and FISH Colcemid: 30 min Number of cells: 11 Process: 2 Duration: 72 Hr Media: Marrow Max Mitogen: CpG Banding: GTW Colcemid: 30 min Number of cells: 10 Chromosome Count Analysis 46 1 47 20 Total 21 Total number of cells karyotyped: 21 Performed By: #### BRETT [id number] #### [place] [facility] (DEFAULT) [address] [place] [address] Interpretation Normal [facility] Comment on above: Order Comment: Alejandra stallworth do not use this order for add-ons Place sample for CYTOGENETICS in Sodium (NA) heparin tube. Please do not use this order for add-ons Place sample for CYTOGENETICS in Sodium (NA) heparin tube. 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 Trisomy for chromosome 12 is the most common numerical abnormality in CLL. Reference: arminda Navarro al. The D?hner fluorescence in situ hybridization prognostic classification of chronic lymphocytic leukaemia (CLL): the CLL Research Consortium experience. [place] Journal of Haematology 2016;173:105-113. Due to the limitations of this analysis, these results do not rule out the presence of subtle chromosomal abnormalities or additional abnormalities that could exist in a low proportion of cells. Performed By: #### BRETT [id number] #### [place] [facility] (DEFAULT) [address] [address] Karyotype 47,XY,+12[cp21] Normal [facility] Comment on above: Order Comment: Alejandra stallworth do not use this order for add-ons Place sample for CYTOGENETICS in Sodium (NA) heparin tube. Please do not use this order for add-ons Place sample for CYTOGENETICS in Sodium (NA) heparin tube. Performed By: #### C DIANE [id number] #### [place] [facility] (DEFAULT) [address] [address] FISH STUDIESon 05-29-2024 Clinical History Chronic Lymphocytic Leukemia Normal [facility] Comment on above: Order Comment: Alejandra stallworth do not use this order for add-ons Place sample for CYTOGENETICS in Sodium (NA) heparin tube. Please do not use this order for add-ons Place sample for CYTOGENETICS in Sodium (NA) heparin tube. Performed By: #### C DIANE [id number] #### [place] [facility] (DEFAULT) [address] [address] Culture Method Normal [facility] Comment on above: Order Comment: Alejandra stallworth do not use this order for add-ons Place sample for CYTOGENETICS in Sodium (NA) heparin tube. Please do not use this order for add-ons Place sample for CYTOGENETICS in Sodium (NA) heparin tube. Result Comment: Proc ess: 1 Duration: 72 Hr Media: Marrow Max Mitogen: PKW/PMA/CpG Banding: GTW and FISH Colcemid: 30 min Interphases analyzed: Probe Number of Interphases Probe Type Vendor MYC 200 break-apart [employer] CDKN2A 201 locus - specific [employer] GIO 202 locus - specific [employer] D12Z3 200 centromere [employer] [id number] 200 locus - specific [employer] TP53 202 locus - specific [employer] IGH-CCND1 203 dual color, dual fusion [employer] METHOD: Fluorescence in situ hybridization (FISH) was performed by applying DNA probes to interphase (non-dividing) nuclei isolated from peripheral blood/bone marrow. These are specific DNA probes that detect a number of commonly observed aberrations in hematologic malignancies. This test was developed and its performance characteristics determined by the [facility] at [facility]. It has not been cleared or approved by the FDA. The laboratory is regulated under CLIA as qualified to perform high-complexity testing. This test is used for clinical purposes. It should not be regarded as investigational or for research. Pursuant to the requirements of CLIA'88, this laboratory has established and verified the test's accuracy and precision. Performed By: #### C DIANE [id number] #### [place] [facility] (DEFAULT) [address] [id number] FISH Interpretation Normal [facility] Comment on above: Order Comment: Alejandra stallworth do not use this order for add-ons Place sample for CYTOGENETICS in Sodium (NA) heparin tube. Please do not use this order for add-ons Place sample for CYTOGENETICS in Sodium (NA) heparin tube. Result Comment: FISH analyses were performed using probes that localize to the loci listed above. The results showed that 53.2% of the nuclei examined had three signals for D12Z3, indicating trisomy for chromosome 12. Trisomy 12 is a recurrent cytogenetic abnormality that has prognostic significance in CLL. All other probes listed above showed normal signal numbers and patterns within the limits of the analyses. Reference: Rehan Messer et al. The D?hner fluorescence in situ hybridization prognostic classification of chronic lymphocytic leukaemia (CLL): the CLL Research Consortium experience. [place] Journal of Haematology 2016;173:105-113. Performed By: #### C DIANE [id number] #### [facility] (DEFAULT) [address] [place] [address] FISH Report Normal [facility] Comment on above: Order Comment: Alejandra stallworth do not use this order for add-ons Place sample for CYTOGENETICS in Sodium (NA) heparin tube. Please do not use this order for add-ons Place sample for CYTOGENETICS in Sodium (NA) heparin tube. Result Comment: CLL Results Probe Interpretation Patient% Signal/[place] 8q24.2 (MYC) negative 0 3 signals/ 2.3% 9p21 (CDKN2A) negative 0.5 1 signal/ 5.5% 11q22.3 (GIO) negative 1.0 1 signal/ 4.2% 12p11.1-q11 (D12Z3) POSITIVE FOR 3 SIGNALS 53.2 3 signals/ 0.6% 13q14.3 ([id number]) negative 0 1 signal/ 4.9% 17p13.1 (TP53) negative 0 1 signal/ 5.4% FISH Results Probe Interpretation Patient% Signal/[place] Range 14q32.3-11q13.3 (IGH-CCND1) negative 0 dual fusion/ 0.6% nuc lina(MYCx2)[200],(CDKN2A,D9Z4)x2[200],(CCND1,IGH)x2[200],(GIO,TP 53)x2[200],(K26Q9s8,N26F404m8)[107/201] Performed By: #### C DIANE [id number] #### [facility] (DEFAULT) [address] [address] Specimen Received Peripheral Blood obt ained 05/29/24 Normal [facility] Comment on above: Order Comment: Alejandra stallworth do not use this order for add-ons Place sample for CYTOGENETICS in Sodium (NA) heparin tube. Please do not use this order for add-ons Place sample for CYTOGENETICS in Sodium (NA) heparin tube. Performed By: #### C BRETT [id number] #### [facility] (DEFAULT) [address] [address] IGVH MUTATION ANALYSISon Receiving Status Accessioned in Lab Normal [facility] Comment on above: Performed By: #### L , CMPN #### [facility] (DEFAULT) [address] [address] IMMUNOGLOBULINS IGG IGA IGMo n 05-29-2024 IgA [Mass/Vol] 96 mg/dL 90 - 410 mg/dL [facility] IgG [Mass/Vol] 877 mg/dL 600 - 1560 mg/dL [facility] IgM [Mass/Vol] 125 mg/dL 30 - 360 mg/dL [facility] Interpretation and review of laboratory results Normal [facility] IgA [Mass/Vol] 96 mg/dL Normal 90-410 [facility] Comment on above: Performed By: #### Q IMM #### [facility] (DEFAULT) [address] [place] [address] IgG [Mass/Vol] 877 mg/dL Normal 600-1560 [facility] Comment on above: Performed By: #### Q IMM #### [facility] (DEFAULT) [address] [place] [address] IgM [Mass/Vol] 125 mg/dL Normal 30-360 [facility] Comment on above: Performed By: #### Q IMM #### [facility] (DEFAULT) [address] [place] [address] LACTATE DEHYDROGENASEon -2 Interpretation and review of laboratory results Normal [facility] LDH Lactate to pyruvate reaction [Catalytic activity/Vol] 144 U/L 100 - 190 U/L [facility] LD Total 144 U/L Normal 100-190 [facility] Comment on above: Performed By: #### L DO, CMPN #### [facility] (DEFAULT) [address] [place] [address] No Panel Informationon 05-29 [facility] Surgical pathology studyon 1 Surgical pathology study Pathology report.total SEE COMMENT Surgical Pathology Report Case: [id number] Authorizing Provider: Collected: 05/17/2024 [facility] Ordering Location: [facility] Received: 05/17/2024 [facility] Pathologist: Lupe Valdovinos MD Specimen: OUTSIDE [...] Ki67: increased proliferation (40%) FLOW CYTOMETRY INTERPRETATION ([id number]) Abnormal / monotypic CD5 positive B-cell population [...] CD56, CD57, [facility]-7 CYTOGENETIC / MOLECULAR STUDIES ([id number]): Insufficient metaphases available for chromosome analysis. No results. See separate report for details. FISH REPORT ([id number]): Fluorescence in situ hybridization (FISH) analysis was [...] of the disease. See flow cytometry report [id number] for further information. See cytogenetic report [id number] for further information. The following FISH analysis on CLL FISH panel was performed on this patient specimen: Probe Detection parameters Result ISCN Centromere 12 Detects a Trisomy 12 Detected nuc lina (B32C7a6)[80/200] 13q14(DLEU1) Detects a deletion of 13 q [...] conjunction with patho (more content not included)... [facility] Ambulatory Visit Summaryon 0 04-24-2024 Ambulatory Visit Summary Ambulatory Visit Summary MILY IBRAHIM [place] :1955 Visit Date:04/24/2024 Ambulatory Visit Instructions Your Diagnosis Elevated PSA BPH with urinary obstruction Feeling of incomplete bladder emptying Urethral stricture in male Erectile dysfunction Gross hematuria Your Care Team Attending Physician - MERRY Fisher APRN, [place] X Primary Care Physician - Qiana Gayle This Is Your Medications List Contact prescribing physician if questions or concerns Misc Prescription ([employer] cpap machine supplies: head gear, mask, tubing [...] if questions or concerns Unchanged Misc Prescription ([employer] cpap machine supplies: head gear, mask, tubing [...] a rect (more content not included)... Normal [facility] Urology Office/Clinic Noteon 04-24-2024 Urology Office/Clinic Note [...] with voice recognition artificial intelligence software, specifically Mentegram, YR.MRKT and or Mediamorph. Substitutions may have occurred due to the [...] -Obtain inguinal lymph node biopsy results from [facility] Ordered: Body Mass Index (BMI) documented 3008F [...] for refills. -Continue tamsulosin and finasteride Ordered: 91458 Measure Post Void residual urine and/or bladder capacity by US- non-imaging Body Mass Index (BMI) documented 3008F Current tobacco non-user 1036F Depression Screening Negative 3352F Influenza immunization status assessed 1030F Medication list documented in medical record 1159F Most recent diastolic blood pressure (more content not included)... Normal [facility] Comment on above: Result Comment: Elec tronically Signed By: MERRY Fisher APRN, [place] X\.br\Date and Time Signed: 04/24/24 08:58 EDT Andrea 04-20-2024 L ------ Specimen: [id number] Received: 04/20/24-1041 Status: KAEL Moreland Num: [id number] Spec Type: Surgical Subm Dr: Jered Leon MD Tissues: A Lymph Node - Biopsy (Needle or Incisional) (R INGUINAL LYMPH NODE) Procedures: HE/8, Gross/Micro L4, BCL-2, BCL-6, CD10, CD138, CD20, CD21, CD23, CD3, CD30, CD43, CD5, CD56, CD68, CYCLIN D1, Ki-67, PAX5 Comments: LYMPHOMA WORKUP PER DR LEON Age/ Patient Sex Location Account Attending Physician MargaretMily stallworth Henna 68/M [place] [id number] Jered Leon MD SPEC NUM: [id number] RECD: 04/20/24 STATUS: KAEL REKevyn NUM: [id number] [place]: 04/20/[address] [facility] [address]: Jered Leon MD ENTERED: 04/20/24 [facility] DR: MORENA TYPE: Surgical DEPT: S ENTERED BY: [id number] RECV BY: [id number] ORDERED: HE/8, Gross/Micro L4, BCL-2, BCL-6, CD10, CD138, CD20, CD21, CD23, CD3, CD30, CD43, CD5, CD56, CD68, CYCLIN D1, Ki-67, PAX5 COMMENTS: LYMPHOMA WORKUP PER DR LEON ORDERED: HE/8, Gross/Micro L4, BCL-2, BCL-6, CD10, CD138, CD20, CD21, CD23, CD3, CD30, CD43, CD5, CD56, CD68, CYCLIN D1, Ki-67, PAX5 COMMENTS: LYMPHOMA WORKUP PER DR LEON Supplemental Report Addendum 5 Entered: 08/07/241441 Supplemental for findings of consultation report from the [facility], Department of anatomic pathology -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), see comment and synoptic report: Addendum Signed (signature on file) Teo Kaur MD 08/07/24 5150 Specimen: [id number] Received: 04/20/24 Status: KAEL Moreland Num: [id number] Spec Type: Surgical Subm Dr: Jered Leon MD Tissues: A Lymph Node - Biopsy (Needle or Incisional) (R INGUINAL LYMPH NODE) Procedures: HE/8, Gross/Micro L4, BCL-2, BCL-6, CD10, CD138, CD20, CD21, CD23, CD3, CD30, CD43, CD5, CD56, CD68, CYCLIN D1, Ki-67, PAX5 Comments: LYMPHOMA WORKUP PER DR LEON Patient: Mily Ibrahim [id number] (Continued) Specimen: [id number] Received: 04/20/24 (Continued) Supplemental Report (Continued) Signed (signature on file) Teo Kaur MD 04/26/24 1803 Specimen: [id number] Received: 04/20/24 Status: KAEL Moreland Num: [id number] Spec Type: Surgical Subm Dr: Jered Leon MD Tissues: A Lymph Node - Biopsy (Needle or Incisional) (R INGUINAL LYMPH NODE) Procedures: HE/8, Gross/Micro L4, BCL-2, BCL-6, CD10, CD138, CD20, CD21, CD23, CD3, CD30, CD43, CD5, CD56, CD68, CYCLIN D1, Ki-67, PAX5 Comments: LYMPHOMA WORKUP PER DR LEON Patient: Mily Ibrahim [id number] (Continued) Specimen: [id number] Received: 04/20/24 (Continued) Supplemental Report (Continued) Addendum 4 Entered: 05/22/24 Supplemental for findings of consultation report from 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), see note Addendum Signed (signature on file) Teo Kaur MD 05/22/24909 Addendum 3 Entered: 05/08/24140 Supplemental for findings of summary of results report from [facility] -Please also see the findings of all 3 previous supplementals already attached Addendum Signed (signature on file)Torie__Torie Kaur MD 05/08/24 1409 Addendum 2 Entered: 05/03/24 #1, Supplemental for findings of cytogenetic analysis report from [facility] RESULT: -Insufficient metaphases available for chromosome analysis -No results #2, Supplemental for findings of FISH report from [facility] TargetGene analysis Specimen: [id number] Received: 04/20 (more content not included)... Normal [facility] GLUCOSE POCT GLUCOMETERSon 0 04-06-2024 Glucose [Mass/Vol] 101 mg/dL [facility] Comment on above: Random Glucose Refer ence Range is dependent on time and content of last meal. Glucose of more than 200 mg/dL in a nonstressed, ambulatory subject supports the diagnosis of Diabetes Mellitus. [facility] Capillary blood glucose abraham urement by glucometer (mass/volume)Ordered By: Maria Ines Hanley on 04-04-2024 Glucose [Mass/Vol] 101 mg/dL Normal [facility] Comment on above: Random Glucose Refer ence Range is dependent on time and content of last meal. Glucose of more than 200 mg/dL in a nonstressed, ambulatory subject supports the diagnosis of Diabetes Mellitus. Result Comment: [facility] Glucose Reference Range is dependent on time and content of last meal. Glucose of more than 200 mg/dL in a nonstressed, ambulatory subject supports the diagnosis of Diabetes Mellitus. PERFORMED BY: [place] [address] PATHOLOGIST GLUE SPREADER WILLI VILLEDA M.D. Performed By: #### C UBLD #### [place] [address] [place] Glucose Glucometer (BldC) [M ass/Vol]Ordered By: Maria Ines Hanley on 04-04-2024 Glucose [Mass/Vol] Capillary blood gluc ose measurement by glucometer (mass/volume) [facility] Comment on above: Random Glucose Refer ence Range is dependent on time and content of last meal. Glucose of more than 200 mg/dL in a nonstressed, ambulatory subject supports the diagnosis of Diabetes Mellitus. PET tumor init tx strat wbon 04-04-2024 PET tumor init tx strat wb [facility] Main [place] [address] [place] [address] Nuclear Medicine Report Signed Patient: Mily Ibrahim MR#: [id number] : 1955 Acct:[id number] Age/Sex: 68 / M ADM Date: 04/04/24 Loc: XT Room: Type: [facility] Attending Dr: Maria Ines Hanley MD Copies [...] Barker Jr., D.OArnoldo04/04/2024 1:48 PM Dictation Location: [place] [address] Transcribed By: [facility] 04/04/24 1348 Dictated By: Price Barker Jr, DO 04/04/24 1336 Signed By: 04/04/24 1348 Normal [facility] Alanine aminotransferase [En zymatic activity/volume] in Serum or PlasmaOrdered By: Maria Ines Hanley on 03-29-2024 ALT [Catalytic activity/Vol] 16 U/L Normal [facility] Comment on above: Performed By: #### S PE, IMM RICKEY, KAPPA, B2-MICRO #### [facility] , #### LDH, CMP, CBC, HAPT #### [facility] [address] [place] [address] ALT [Catalytic activity/Vol] Alanine aminotransferase [Enzymatic activity/volume] in Serum or Plasma [facility] Albumin [Mass/volume] in Ser um or PlasmaOrdered By: Maria Ines Hanley on 03-29-2024 Albumin [Mass/Vol] 3.5 g/dL Normal 2.9-4.4 [facility] Comment on above: Performed By: #### V ANCP #### [address] Albumin [Mass/volume] in Ser um or Plasma by Bromocresol green (BCG) dye binding methoOrdered By: Maria Ines Hanley on 03-29-2024 Albumin BCG dye [Mass/Vol] 4.0 g/dL 3.5-5.7 [facility] Albumin BCG dye [Mass/Vol] Albumin [Mass/volume] in Serum or Plasma by Bromocresol green (BCG) dye binding metho 3.5-5.7 [facility] Alkaline phosphatase [Enzyma tic activity/volume] in Serum or PlasmaOrdered By: Maria Ines Hanley on 03-29-2024 ALP [Catalytic activity/Vol] 46 U/L Normal 34-104 [facility] Comment on above: Performed By: #### S PE, IMM RICKEY, KAPPA, B2-MICRO #### [facility] , #### LDH, CMP, CBC, HAPT #### [facility] [address] [place] [address] [place] ALP [Catalytic activity/Vol] Alkaline phosphatase [Enzymatic activity/volume] in Serum or Plasma 34-104 [facility] Aspartate aminotransferase [ Enzymatic activity/volume] in Serum or PlasmaOrdered By: Maria Ines Hanley on 03-29-2024 AST [Catalytic activity/Vol] 15 U/L Normal 13-39 [facility] Comment on above: Performed By: #### S PE, IMM RICKEY, KAPPA, B2-MICRO #### [facility] , #### LDH, CMP, CBC, HAPT #### [facility] [address] [place] [address] AST [Catalytic activity/Vol] Aspartate aminotransferase [Enzymatic activity/volume] in Serum or Plasma 13-39 [facility] Automated basophil %Ordered By: Maria Ines Hanley on 03-29-2024 Basophils/100 WBC (Bld) 0.4 % Normal . [facility] Comment on above: Performed By: #### S PE, IMM RICKEY, KAPPA, B2-MICRO #### [facility] , #### LDH, CMP, CBC, HAPT #### [address] Automated basophil countOrde red By: Maria Ines Monroese on 03-29-2024 Basophils (Bld) [#/Vol] 0.0 10*3/uL Normal 0.0-0.2 [facility] Comment on above: Result Comment: PERF ORMED BY: [address] [place] [address] PATHOLOGIST GLUE SPREADER WILLI VILLEDA M.D. Performed By: #### S PE, IMM RICKEY, KAPPA, B2-MICRO #### [facility] , #### LDH, CMP, CBC, HAPT #### [address] Automated blood monocyte cou ntOrdered By: Maria Ines Talon on 03-29-2024 Monocytes (Bld) [#/Vol] 0.5 10*3/uL Normal 0.0-0.8 [facility] Comment on above: Performed By: #### S PE, IMM RICKEY, KAPPA, B2-MICRO #### [facility] , #### LDH, CMP, CBC, HAPT #### [address] Automated eosinophil %Ordere d By: Maria Ines Monroese on 03-29-2024 Eosinophils/100 WBC (Bld) 1.1 % Normal . [facility] Comment on above: Performed By: #### S PE, IMM RICKEY, KAPPA, B2-MICRO #### [facility] , #### LDH, CMP, CBC, HAPT #### [address] Automated eosinophil countOr dered By: Maria Ines Hanley on 03-29-2024 Eosinophils (Bld) [#/Vol] 0.1 10*3/uL Normal 0.0-0.45 [facility] Comment on above: Performed By: #### S PE, IMM RICKEY, KAPPA, B2-MICRO #### [facility] , #### LDH, CMP, CBC, HAPT #### [address] Automated monocyte %Ordered By: Maria Ines Hanley on 03-29-2024 Monocytes/100 WBC (Bld) 5.9 % Normal . [facility] Comment on above: Performed By: #### S PE, IMM RICKEY, KAPPA, B2-MICRO #### [facility] , #### LDH, CMP, CBC, HAPT #### [address] Automated neutrophil %Ordere d By: Maria Ines Hanley on 03-29-2024 Neutrophils/100 WBC (Bld) 61.7 % Normal . [facility] Comment on above: Performed By: #### S PE, IMM RICKEY, KAPPA, B2-MICRO #### [facility] , #### LDH, CMP, CBC, HAPT #### [address] Basophils Auto (Bld) [#/Vol] Ordered By: Maria Ines Hanley on 03-29-2024 Basophils (Bld) [#/Vol] Automated basophil count 0.0-0.2 [facility] Basophils/100 WBC Auto (Bld) Ordered By: Maria Ines Hanley on 03-29-2024 Basophils/100 WBC (Bld) Automated basophil % . [facility] Beta 2 Microglobulin, Serumo n 03-29-2024 Beta 2 Microglobulin, Serum 2.2 mg/L Normal 0.6-2.4 [facility] Comment on above: Result Comment: Aba cobb Immulite 2000 Immunochemiluminometric assay (ICMA) Values obtained with different assay methods or kits cannot be used interchangeably. Results cannot be interpreted as absolute evidence of the presence or absence of malignant disease. Performed at: - [address] [id number] Model Maker: Sohan Broderick MD, Phone: [phone] Performed By: #### V ANCP #### [facility] [address] [place] [id number] [facility] Bilirubin.total [Mass/volume ] in Serum or PlasmaOrdered By: Maria Ines Hanley on 03-29-2024 Bilirubin [Mass/Vol] 0.5 mg/dL Normal 0.3-1.0 [facility] Comment on above: Performed By: #### S PE, IMM RICKEY, KAPPA, B2-MICRO #### [facility] , #### LDH, CMP, CBC, HAPT #### [facility] [address] [place] [address] [place] Bilirubin [Mass/Vol] Bilirubin.total [Mass/volume] in Serum or Plasma 0.3-1.0 [facility] CBC W Auto Differential pane l (Bld)on 03-29-2024 Basophils (Bld) [#/Vol] 0.0 10*3/uL 0.0 - 0.2 10*3/uL [facility] Basophils/100 WBC Manual cnt (Syn fld) 0.4 % . [facility] Eosinophils (Bld) [#/Vol] 0.1 10*3/uL 0.0 - 0.45 10*3/uL [facility] Eosinophils/100 WBC Manual cnt (Syn fld) 1.1 % . [facility] Erythrocyte distribution width (RBC) [Ratio] 14.2 % 12.0 - 14.8 % [facility] Hematocrit (Bld) [Volume fraction] 42.0 % 38.8 - 50.0 % [facility] Hemoglobin (Bld) [Mass/Vol] 14.3 g/dL 13.0 - 17.0 g/dL [facility] Lymphocytes (Bld) [#/Vol] 2.6 10*3/uL 1.00 - 4.8 10*3/uL [facility] Lymphocytes/100 WBC Manual cnt (Syn fld) 30.9 % . [facility] MCH (RBC) [Entitic mass] 30.3 pg 27.5 - 35.2 pg [facility] MCHC (RBC) [Mass/Vol] 34.0 g/dL 32.5 - 35.6 g/dL [facility] MCV (RBC) [Entitic vol] 89.0 fL 83.5 - 101 fL [facility] Monocytes (Bld) [#/Vol] 0.5 10*3/uL 0.0 - 0.8 10*3/uL [facility] Monocytes+Macrophages/ 100 WBC Manual cnt (Syn fld) 5.9 % . [facility] Neutrophils (Bld) [#/Vol] 5.2 10*3/uL 1.8 - 7.7 10*3/uL [facility] Neutrophils/100 WBC Manual cnt (Syn fld) 61.7 % . [facility] NRBC 0.1 /100{WBC} 0 - 0.5 /100{WBC} [facility] Platelet mean volume (Bld) [Entitic vol] 7.4 fL 6.6 - 10.1 fL [facility] Platelets (Bld) [#/Vol] 178 10*3/uL 150 - 450 10*3/uL [facility] RBC LM.HPF (Urine sed) [#/Area] 4.72 /[HPF] 3.90 - 5.60 [facility] WBC (Bld) [#/Vol] 8.4 10*3/uL 4.1 - 10.5 10*3/uL [facility] WBC LM.HPF (Urine sed) [#/Area] 8.4 10*3/uL 4.1 - 10.5 10*3/uL [facility] Calcium [Mass/volume] in Ser um or PlasmaOrdered By: Maria Ines Hanley on 03-29-2024 Calcium [Mass/Vol] 8.8 mg/dL Normal 8.6-10.3 [facility] Comment on above: Performed By: #### S PE, IMM RICKEY, KAPPA, B2-MICRO #### [facility] , #### LDH, CMP, CBC, HAPT #### [facility] [address] [place] [address] Calcium [Mass/Vol] Calcium [Mass/volume ] in Serum or Plasma 8.6-10.3 [facility] Carbon dioxide, total [Moles /volume] in Serum or PlasmaOrdered By: Maria Ines Talon on 03-29-2024 CO2 [Moles/Vol] 30.5 mmol/L Normal 21.0-31.0 [facility] Comment on above: Performed By: #### S PE, IMM RICKEY, KAPPA, B2-MICRO #### [facility] , #### LDH, CMP, CBC, HAPT #### [facility] [address] CO2 [Moles/Vol] Carbon dioxide, tota l [Moles/volume] in Serum or Plasma 21.0-31.0 [facility] Chloride [Moles/volume] in S flor or PlasmaOrdered By: Maria Ines Talon on 03-29-2024 Chloride [Moles/Vol] 106 mmol/L Normal 98-107 [facility] Comment on above: Performed By: #### S PE, IMM RICKEY, KAPPA, B2-MICRO #### [facility] , #### LDH, CMP, CBC, HAPT #### [facility] [address] [place] [address] Chloride [Moles/Vol] Chloride [Moles/vol ume] in Serum or Plasma 98-107 [facility] Complete Blood Count Auto Di ffon 03-29-2024 Mean Corpuscular HGB Conc 34.0 g/dL Normal 32.5-35.6 [facility] Comment on above: Performed By: #### S PE, IMM RICKEY, KAPPA, B2-MICRO #### [facility] , #### LDH, CMP, CBC, HAPT #### [facility] [address] [place] [address] NRBC% 0.1 /100{WBC} Normal 0-0.5 [facility] Comment on above: Performed By: #### S PE, IMM RICKEY, KAPPA, B2-MICRO #### [facility] , #### LDH, CMP, CBC, HAPT #### [facility] [address] Metabolic Pane [facility] 03-29-2024 Albumin [Mass/Vol] 4.0 g/dL Normal 3.5-5.7 [facility] Comment on above: Performed By: #### S PE, IMM RICKEY, KAPPA, B2-MICRO #### [facility] , #### LDH, CMP, CBC, HAPT #### [facility] [address] [place] [address] Creatinine Clr Calc Pharmacy 82.13 Normal [facility] Comment on above: Performed By: #### S PE, IMM RICKEY, KAPPA, B2-MICRO #### [facility] , #### LDH, CMP, CBC, HAPT #### [address] GFR/1.73 sq M.predicted MDRD (S/P/Bld) [Vol rate/Area] mL/min/{1.73_m2} Normal [facility] Comment on above: Performed By: #### S PE, IMM RICKEY, KAPPA, B2-MICRO #### [facility] , #### LDH, CMP, CBC, HAPT #### [address] [facility] 03-29-2024 Albumin [Mass/Vol] 4.0 g/dL 3.5 - 5.7 g/dL [facility] Albumin/Globulin [Mass ratio] 2.2 {ratio} [facility] ALP [Catalytic activity/Vol] 46 U/L 34 - 104 U/L [facility] ALT [Catalytic activity/Vol] 16 U/L 7 - 52 U/L [facility] Anion gap [Moles/Vol] 7.4 mmol/L 6.0 - 15.0 [facility] AST [Catalytic activity/Vol] 15 U/L 13 - 39 U/L [facility] Bilirubin [Mass/Vol] 0.5 mg/dL 0.3 - 1 .0 mg/dL [facility] Calcium [Mass/Vol] 8.8 mg/dL 8.6 - 10. 3 mg/dL [facility] Chloride [Moles/Vol] 106 mmol/L 98 - 10 7 mmol/L [facility] CO2 [Moles/Vol] 30.5 mmol/L 21.0 - 31.0 mmol/L [facility] Creatinine (U) [Mass/Vol] 1.04 mg/dL 0.70 - 1.30 mg/dL [facility] CREATININE CLR CALC PHARMACY 82.13 [facility] GFR/1.73 sq M.predicted MDRD (S/P/Bld) [Vol rate/Area] mL/min/{1.73_m2} [facility] Globulin (S) [Mass/Vol] 1.8 g/dL [facility] Glucose [Mass/Vol] 112 mg/dL High 70 - 100 mg/dL [facility] Comment on above: Random Glucose Refer ence Range is dependent on time and content of last meal. Glucose of more than 200 mg/dL in a nonstressed, ambulatory subject supports the diagnosis of Diabetes Mellitus. ADA recommended reference range Interpretation and review of laboratory results Abnormal [facility] Potassium [Moles/Vol] 3.9 mmol/L 3.5 - 5.1 mmol/L [facility] Protein [Mass/Vol] 5.8 g/dL Low 6.4 - 8.9 g/dL [facility] Sodium [Moles/Vol] 140 mmol/L 136 - 145 mmol/L [facility] Urea nitrogen [Mass/Vol] 12 mg/dL 7 - 25 mg/dL [facility] Creatinine [Mass/volume] in Serum or PlasmaOrdered By: Maria Ines Hanley on 03-29-2024 Creatinine [Mass/Vol] 1.04 mg/dL Normal 0.70-1.30 [facility] Comment on above: Performed By: #### S PE, IMM RICKEY, KAPPA, B2-MICRO #### [facility] , #### LDH, CMP, CBC, HAPT #### [facility] [address] Creatinine [Mass/Vol] Creatinine [Mass/v olume] in Serum or Plasma 0.70-1.30 [facility] Direct [place] 03-29-2024 Polyspecific AHG Negative Normal Negative [facility] Comment on above: Result Comment: PERF ORMED BY: [facility] [address] [place] [address] PATHOLOGIST GLUE SPREADER WILLI VILLEDA M.D. Eosinophils Auto (Bld) [#/Vo l]Ordered By: Maria Ines Talon on 03-29-2024 Eosinophils (Bld) [#/Vol] Automated eosinophil count 0.0-0.45 [facility] Eosinophils/100 WBC Auto (Bl d)Ordered By: Maria Ines Talon on 03-29-2024 Eosinophils/100 WBC (Bld) Automated eosinophil % . [facility] Erythrocyte distribution wid th Auto (RBC) [Ratio]Ordered By: Maria Ines Hanley on 03-29-2024 Erythrocyte distribution width (RBC) [Ratio] Erythrocyte distribution width [Ratio] by Automated count 12.0-14.8 [facility] Erythrocyte distribution wid th [Ratio] by Automated countOrdered By: Maria Ines Talon on 03-29-2024 Erythrocyte distribution width (RBC) [Ratio] 14.2 % Normal 12.0-14.8 [facility] Comment on above: Performed By: #### S PE, IMM RICKEY, KAPPA, B2-MICRO #### [facility] , #### LDH, CMP, CBC, HAPT #### [facility] [address] [place] [address] [place] Erythrocytes [#/volume] in B lood by Automated countOrdered By: Maria Ines Talon on 03-29-2024 RBC (Bld) [#/Vol] 4.72 10*6/uL Normal 3.90-5.60 [facility] Comment on above: Performed By: #### S PE, IMM RICKEY, KAPPA, B2-MICRO #### [facility] , #### LDH, CMP, CBC, HAPT #### [facility] [address] [place] [id number] [place] Free K+L LT Chains, Qn, Son 03-29-2024 Free [place] Light Chains, S 16.4 mg/L Normal 3.3-19.4 [facility] Comment on above: Performed By: #### V ANCP #### [facility] [address] [place] [id number] [place] Free Lambda Light Chains, S 18.0 mg/L Normal 5.7-26.3 [facility] Comment on above: Performed By: #### V ANCP #### [address] [place]/Lambda Ratio, S 0.91 Normal 0.26-1.65 [facility] Comment on above: Result Comment: Perf ormed at: CB - [facility] [address] [id number] Model Maker: Clifton Rooney PhD, Phone: [phone] PERFORMED BY: [place] [address] PATHOLOGIST GLUE SPREADER WILLI VILLEDA M.D. Performed By: #### V ANCP #### [address] Globulin Calc (S) [Mass/Vol] Ordered By: Maria Ines Hanley on 03-29-2024 Globulin (S) [Mass/Vol] Serum globulin measurement by calculation (mass/volume) [facility] Glucose [Mass/volume] in Ser um or PlasmaOrdered By: Maria Ines Hanley on 03-29-2024 Glucose [Mass/Vol] 112 mg/dL High 70-100 [facility] Comment on above: ADA recommended refe rence rangeRandom Glucose Reference Range is dependent on time and content of last meal. Glucose of more than 200 mg/dL in a nonstressed, ambulatory subject supports the diagnosis of Diabetes Mellitus. Result Comment: [place] om Glucose Reference Range is dependent on time and content of last meal. Glucose of more than 200 mg/dL in a nonstressed, ambulatory subject supports the diagnosis of Diabetes Mellitus. ADA recommended reference range Performed By: #### S PE, IMM RICKEY, KAPPA, B2-MICRO #### [facility] , #### LDH, CMP, CBC, HAPT #### [facility] [address] [place] [address] Glucose [Mass/Vol] Glucose [Mass/volume ] in Serum or Plasma High 70-100 [facility] Comment on above: ADA recommended refe rence rangeRandom Glucose Reference Range is dependent on time and content of last meal. Glucose of more than 200 mg/dL in a nonstressed, ambulatory subject supports the diagnosis of Diabetes Mellitus. Haptoglobinon 03-29-2024 HAPTOGLOBIN 124 mg/dL 44 - 215 mg/dL [facility] Haptoglobin 124 mg/dL Normal 44-215 [facility] Comment on above: Result Comment: PERF ORMED BY: [place] [address] PATHOLOGIST GLUE SPREADER WILLI VILLEDA M.D. Performed By: #### S PE, IMM RICKEY, KAPPA, B2-MICRO #### [facility] , #### LDH, CMP, CBC, HAPT #### [facility] [address] [place] [address] [place] Haptoglobin [Mass/volume] in Serum or PlasmaOrdered By: Maria Ines Hanley on 03-29-2024 Haptoglobin [Mass/Vol] 124 mg/dL 44-215 [facility] Haptoglobin [Mass/Vol] Haptoglobin [Mass /volume] in Serum or Plasma 44-215 [facility] Hematocrit Auto (Bld) [Volum e fraction]Ordered By: Maria Ines Hanley on 03-29-2024 Hematocrit (Bld) [Volume fraction] Hematocrit [Volume Fraction] of Blood by Automated count 38.8-50.0 [facility] Hematocrit [Volume Fraction] of Blood by Automated countOrdered By: Maria Ines Hanley on 03-29-2024 Hematocrit (Bld) [Volume fraction] 42.0 % Normal 38.8-50.0 [facility] Comment on above: Performed By: #### S PE, IMM RICKEY, KAPPA, B2-MICRO #### [facility] , #### LDH, CMP, CBC, HAPT #### [facility] [address] [place] [address] [place] Hemoglobin [Mass/volume] in BloodOrdered By: Maria Ines Hanley on 03-29-2024 Hemoglobin (Bld) [Mass/Vol] 14.3 g/dL Normal 13.0-17.0 [facility] Comment on above: Performed By: #### S PE, IMM RICKEY, KAPPA, B2-MICRO #### [facility] , #### LDH, CMP, CBC, HAPT #### [facility] [address] Hemoglobin (Bld) [Mass/Vol] Hemoglobin [Mass/volume] in Blood 13.0-17.0 [facility] IgA [Mass/volume] in Serum o r PlasmaOrdered By: Maria Ines Talon on 03-29-2024 IgA [Mass/Vol] 103 mg/dL 61-437 [facility] IgG [Mass/volume] in Serum o r PlasmaOrdered By: Maria Ines Talon on 03-29-2024 IgG [Mass/Vol] 877 mg/dL 603-1613 [facility] IgM [Mass/volume] in Serum o r PlasmaOrdered By: Maria Ines Talon on 03-29-2024 IgM [Mass/Vol] 112 mg/dL 20-172 [facility] Comment on above: Performed at: [facility] [place] [address] [id number] Director: Clifton Rooney PhD, Phone: [employer] Immunoglobulin light chains. kappa.free [Mass/volume] in SerumOrdered By: Maria Ines Talon on 03-29-2024 Immunoglobulin light chains.kappa.free (S) [Mass/Vol] 16.4 mg/L 3.3-19.4 [facility] Immunoglobulin light chains. kappa.free/Immunoglobulin light chains.lambda.free [MassOrdered By: Maria Ines Hanley on 03-29-2024 Immunoglobulin light chains.kappa.free/Immu noglobulin light chains.lambda.free (S) [Mass ratio] 0.91 0.26-1.65 [facility] Comment on above: Performed at: [facility] [place] [address] [id number] Director: Clifton Rooney PhD, Phone: [phone] Immunoglobulin light chains. lambda.free [Mass/volume] in Serum or PlasmaOrdered By: Maria Ines Hanley on 03-29-2024 Immunoglobulin light chains.lambda.free [Mass/Vol] 18.0 mg/L 5.7-26.3 [facility] Immunoglobulins A/G/M, Qn, S fabricio 03-29-2024 Immunoglobulin A, Serum 103 mg/dL Normal 61-437 [facility] Comment on above: Performed By: #### S PE, IMM RICKEY, KAPPA, B2-MICRO #### [facility] , #### LDH, CMP, CBC, HAPT #### [address] Immunoglobulin G 877 mg/dL Normal 603-1613 [facility] Comment on above: Performed By: #### S PE, IMM RICKEY, KAPPA, B2-MICRO #### [facility] , #### LDH, CMP, CBC, HAPT #### [address] Immunoglobulin M, Serum 112 mg/dL Normal 20-172 [facility] Comment on above: Result Comment: Perf ormed at: - [facility] [address] [id number] Model Maker: Clifton Rooney PhD, Phone: [phone] Performed By: #### S PE, IMM RICKEY, KAPPA, B2-MICRO #### [facility] , #### LDH, CMP, CBC, HAPT #### [address] LDH Lactate Dehydrogenaseon 03-29-2024 LDH Lactate Dehydrogenase 249 U/L Normal 140-271 [facility] Comment on above: Result Comment: PERF ORMED BY: [place] [address] PATHOLOGIST GLUE SPREADER WILLI VILLEDA M.D. Performed By: #### S PE, IMM RICKEY, KAPPA, B2-MICRO #### [facility] , #### LDH, CMP, CBC, HAPT #### [address] LDH Lactate to pyruvate reac tion [Catalytic activity/Vol]on 03-29-2024 LDH LACTATE DEHYDROGENASE 249 U/L 140 - 271 U/L [facility] Lactate dehydrogenase [Enzym atic activity/volume] in Serum or Plasma by Lactate to pyOrdered By: Maria Ines Hanley on 03-29-2024 LDH Lactate to pyruvate reaction [Catalytic activity/Vol] 249 U/L 140 [facility] LDH Lactate to pyruvate reaction [Catalytic activity/Vol] Lactate dehydrogenase [Enzymatic activity/volume] in Serum or Plasma by Lactate to py 140-271 [facility] Leukocytes [#/volume] correc isa for nucleated erythrocytes in Blood by Automated counOrdered By: Maria Ines Hanley on 03-29-2024 WBC corrected for nucl RBC Auto (Bld) [#/Vol] 8.4 10*3/uL 4.1-10.5 [facility] WBC corrected for nucl RBC Auto (Bld) [#/Vol] Leukocytes [#/volume] corrected for nucleated erythrocytes in Blood by Automated coun 4.1-10.5 [facility] Leukocytes [#/volume] in Blo od by Automated countOrdered By: Maria Ines Hanley on 03-29-2024 WBC (Bld) [#/Vol] 8.4 10*3/uL Normal 4.1-10.5 [facility] Comment on above: Performed By: #### S PE, IMM RICKEY, KAPPA, B2-MICRO #### [facility] , #### LDH, CMP, CBC, HAPT #### [facility] [address] [place] [address] [place] Lymphocytes Auto (Bld) [#/Vo l]Ordered By: Maria Ines Hanley on 03-29-2024 Lymphocytes (Bld) [#/Vol] Lymphocytes [#/volume] in Blood by Automated count 1.00-4.8 [facility] Lymphocytes [#/volume] in Bl ood by Automated countOrdered By: Maria Ines Hanley on 03-29-2024 Lymphocytes (Bld) [#/Vol] 2.6 10*3/uL Normal 1.00-4.8 [facility] Comment on above: Performed By: #### S PE, IMM RICKEY, KAPPA, B2-MICRO #### [facility] , #### LDH, CMP, CBC, HAPT #### [facility] [address] [place] [address] [place] Lymphocytes/100 WBC Auto (Bl d)Ordered By: Maria Ines Hanley on 03-29-2024 Lymphocytes/100 WBC (Bld) Lymphocytes/100 leukocytes in Blood by Automated count . [facility] Lymphocytes/100 leukocytes i n Blood by Automated countOrdered By: Maria Ines Hanley on 03-29-2024 Lymphocytes/100 WBC (Bld) 30.9 % Normal . [facility] Comment on above: Performed By: #### S PE, IMM RICKEY, KAPPA, B2-MICRO #### [facility] , #### LDH, CMP, CBC, HAPT #### [facility] [address] MCH Auto (RBC) [Entitic mass ]Ordered By: Maria Ines Hanley on 03-29-2024 MCH (RBC) [Entitic mass] MCH [Entitic mass] by Automated count 27.5-35.2 [facility] MCH [Entitic mass] by Automa isa countOrdered By: Maria Ines Hanley on 03-29-2024 MCH (RBC) [Entitic mass] 30.3 pg Normal 27.5-35.2 [facility] Comment on above: Performed By: #### S PE, IMM RICKEY, KAPPA, B2-MICRO #### [facility] , #### LDH, CMP, CBC, HAPT #### [facility] [address] [place] [address] MCHC Auto (RBC) [Mass/Vol]Or dered By: Maria Ines Hanley on 03-29-2024 MCHC (RBC) [Mass/Vol] 34.0 g/dL 32.5-35.6 [facility] MCHC (RBC) [Mass/Vol] MCHC [Mass/volume] by Automated count 32.5-35.6 [facility] MCV Auto (RBC) [Entitic vol] Ordered By: Maria Ines Hanley on 03-29-2024 MCV (RBC) [Entitic vol] MCV [Entitic volume] by Automated count 83.5-101 [facility] MCV [Entitic volume] by Auto mated countOrdered By: Maria Ines Hanley on 03-29-2024 MCV (RBC) [Entitic vol] 89.0 fL Normal 83.5-101 [facility] Comment on above: Performed By: #### S PE, IMM RICKEY, KAPPA, B2-MICRO #### [facility] , #### LDH, CMP, CBC, HAPT #### [facility] [address] [place] [address] [place] Monocytes Auto (Bld) [#/Vol] Ordered By: Maria Ines Hanley on 03-29-2024 Monocytes (Bld) [#/Vol] Automated blood monocyte count 0.0-0.8 [facility] Monocytes/100 WBC Auto (Bld) Ordered By: Maria Ines Hanley on 03-29-2024 Monocytes/100 WBC (Bld) Automated monocyte % . [facility] Neutrophils Auto (Bld) [#/Vo l]Ordered By: Maria Ines Hanley on 03-29-2024 Neutrophils (Bld) [#/Vol] Neutrophils [#/volume] in Blood by Automated count 1.8-7.7 [facility] Neutrophils [#/volume] in Bl ood by Automated countOrdered By: Maria Ines Hanley on 03-29-2024 Neutrophils (Bld) [#/Vol] 5.2 10*3/uL Normal 1.8-7.7 [facility] Comment on above: Performed By: #### S PE, IMM RICKEY, KAPPA, B2-MICRO #### [facility] , #### LDH, CMP, CBC, HAPT #### [facility] [address] [place] [address] [place] Neutrophils/100 WBC Auto (Bl d)Ordered By: Maria Ines Hanley on 03-29-2024 Neutrophils/100 WBC (Bld) Automated neutrophil % . [facility] No Panel Informationon 03-29 [facility] No Panel InformationOrdered By: Maria Ines Hanley on 03-29-2024 Estimated GFR (CKD-EPI) > 60.0 mL/Min [facility] Creatinine Clearance (Chem 82.13 [facility] Protein Electrophoresis M-Dimitri Not observed g/dL Not Observed [facility] Protein Electrophoresis Note Comment . [facility] Comment on above: Protein electrophore sis scan will follow via computer,mail, or political advisor delivery. Nucleated erythrocytes [Pres ence] in Blood by Automated countOrdered By: Maria Ines Talon on 03-29-2024 Nucleated RBC Auto Ql (Bld) 0.1 /100{WBC} 0-0.5 [facility] Nucleated RBC Auto Ql (Bld) Nucleated erythrocytes [Presence] in Blood by Automated count 0-0.5 [facility] Platelet mean volume Auto (B ld) [Entitic vol]Ordered By: Maria Ines Talon on 03-29-2024 Platelet mean volume (Bld) [Entitic vol] Platelet mean volume [Entitic volume] in Blood by Automated count 6.6-10.1 [facility] Platelet mean volume [Entiti c volume] in Blood by Automated countOrdered By: Maria Ines Hanley on 03-29-2024 Platelet mean volume (Bld) [Entitic vol] 7.4 fL Normal 6.6-10.1 [facility] Comment on above: Performed By: #### S PE, IMM RICKEY, KAPPA, B2-MICRO #### [facility] , #### LDH, CMP, CBC, HAPT #### [facility] [address] [place] [address] [place] Platelets Auto (Bld) [#/Vol] Ordered By: Maria Ines Hanley on 03-29-2024 Platelets (Bld) [#/Vol] Platelets [#/volume] in Blood by Automated count 150-450 [facility] Platelets [#/volume] in Bloo d by Automated countOrdered By: Maria Ines Hanley on 03-29-2024 Platelets (Bld) [#/Vol] 178 10*3/uL Normal 150-450 [facility] Comment on above: Performed By: #### S PE, IMM RICKEY, KAPPA, B2-MICRO #### [facility] , #### LDH, CMP, CBC, HAPT #### [facility] [address] [place] [address] [place] Potassium [Moles/volume] in Serum or PlasmaOrdered By: Maria Ines Hanley on 03-29-2024 Potassium [Moles/Vol] 3.9 mmol/L Normal 3.5-5.1 [facility] Comment on above: Performed By: #### S PE, IMM RICKEY, KAPPA, B2-MICRO #### [facility] , #### LDH, CMP, CBC, HAPT #### [address] Potassium [Moles/Vol] Potassium [Moles/v olume] in Serum or Plasma 3.5-5.1 [facility] Protein Electrophoresis, Ser umon 03-29-2024 Vdlui-3-Xcrchkqg 0.2 g/dL Normal 0.0-0.4 [facility] Comment on above: Performed By: #### V ANCP #### [address] Qeqtq-7-Zjlzfrzb 0.6 g/dL Normal 0.4-1.0 [facility] Comment on above: Performed By: #### V ANCP #### [address] Beta Globulin 0.8 g/dL Normal 0.7-1.3 [facility] Comment on above: Performed By: #### V ANCP #### [address] Gamma Globulin 0.9 g/dL Normal 0.4-1.8 [facility] Comment on above: Performed By: #### V ANCP #### [address] M-Dimitri Not Observed Normal Not Observed [facility] Comment on above: Performed By: #### V ANCP #### [address] SPE-Note Comment Normal . [facility] Comment on above: Result Comment: Prot ein electrophoresis scan will follow via computer, mail, or political advisor delivery. Performed By: #### V ANCP #### [address] Protein [Mass/volume] in Ser um or PlasmaOrdered By: Maria Ines Hanley on 03-29-2024 Protein [Mass/Vol] 5.8 g/dL Low 6.4-8.9 [facility] Comment on above: Performed By: #### S PE, IMM RIKCEY, KAPPA, B2-MICRO #### [facility] , #### LDH, CMP, CBC, HAPT #### [facility] [address] [place] [address] Protein [Mass/Vol] 5.9 g/dL Low 6.0-8.5 [facility] Comment on above: Performed By: #### V ANCP #### [address] Protein [Mass/Vol] Protein [Mass/volume ] in Serum or Plasma Low 6.0-8.5 [facility] RBC Auto (Bld) [#/Vol]Ordere d By: Maria Ines Hanley on 03-29-2024 RBC (Bld) [#/Vol] Erythrocytes [#/volu me] in Blood by Automated count 3.90-5.60 [facility] Serum free kappa light chain measurementOrdered By: Maria Ines Hanley on 03-29-2024 Immunoglobulin light chains.kappa.free (S) [Mass/Vol] Immunoglobulin light chains.kappa.free [Mass/volume] in Serum 3.3-19.4 [facility] Serum globulin measurement ( mass/volume)Ordered By: Maria Ines Hanley on 03-29-2024 Globulin (S) [Mass/Vol] 2.4 g/dL Normal 2.2-3.9 [facility] Comment on above: Performed By: #### V ANCP #### [address] Globulin (S) [Mass/Vol] Serum globulin measurement (mass/volume) 2.2-3.9 [facility] Serum globulin measurement b y calculation (mass/volume)Ordered By: Maria Ines Hanley on 03-29-2024 Globulin (S) [Mass/Vol] 1.8 g/dL Normal [facility] Comment on above: Performed By: #### S PE, IMM RICKEY, KAPPA, B2-MICRO #### [facility] , #### LDH, CMP, CBC, HAPT #### [facility] [address] [place] [address] Serum immunoglobulin free ka ppa light chains/immunoglobulin free lambda light chainsOrdered By: Maria Ines Hanley on 03-29-2024 Immunoglobulin light chains.kappa.free/Immu noglobulin light chains.lambda.free (S) [Mass ratio] Immunoglobulin light chains.kappa.free/Immunogl obulin light chains.lambda.free [Mass 0.26-1.65 [facility] Comment on above: Performed at: [facility] [employer] [id number] Director: Clifton Rooney PhD, Phone: [phone] Serum or plasma IgA measurem ent (mass/volume)Ordered By: Maria Ines Hanley on 03-29-2024 IgA [Mass/Vol] IgA [Mass/volume] in Serum or Plasma 61-437 [facility] Serum or plasma IgG measurem ent (mass/volume)Ordered By: Maria Ines Hanley on 03-29-2024 IgG [Mass/Vol] IgG [Mass/volume] in Serum or Plasma 603-1613 [facility] Serum or plasma IgM measurem ent (mass/volume)Ordered By: Maria Ines Hanley on 03-29-2024 IgM [Mass/Vol] IgM [Mass/volume] in Serum or Plasma 20-172 [facility] Comment on above: Performed at: [facility] [place] [address] [id number] Director: Clifton Rooney PhD, Phone: [phone] Serum or plasma albumin abraham urement (mass/volume)Ordered By: Maria Ines Hanley on 03-29-2024 Albumin [Mass/Vol] Albumin [Mass/volume ] in Serum or Plasma 2.9-4.4 [facility] Serum or plasma albumin/glob ulin mass ratioOrdered By: Maria Ines Hanley on 03-29-2024 Albumin/Globulin [Mass ratio] 2.2 {ratio} Normal [facility] Comment on above: Performed By: #### S PE, IMM RICKEY, KAPPA, B2-MICRO #### [facility] , #### LDH, CMP, CBC, HAPT #### [facility] [address] Albumin/Globulin [Mass ratio] 1.5 {ratio} Normal 0.7-1.7 [facility] Comment on above: Performed By: #### V ANCP #### [facility] [address] Albumin/Globulin [Mass ratio] Serum or plasma albumin/globulin mass ratio 0.7-1.7 [facility] Serum or plasma alpha 1 glob ulin measurement by electrophoresis (mass/volume)Ordered By: Maria Ines Hanley on 03-29-2024 Alpha 1 globulin Elph [Mass/Vol] 0.2 g/dL 0.0-0.4 [facility] Alpha 1 globulin Elph [Mass/Vol] Serum or plasma alpha 1 globulin measurement by electrophoresis (mass/volume) 0.0-0.4 [facility] Serum or plasma alpha 2 glob ulin measurement by electrophoresis (mass/volume)Ordered By: Maria Ines Hanley on 03-29-2024 Alpha 2 globulin Elph [Mass/Vol] 0.6 g/dL 0.4-1.0 [facility] Alpha 2 globulin Elph [Mass/Vol] Serum or plasma alpha 2 globulin measurement by electrophoresis (mass/volume) 0.4-1.0 [facility] Serum or plasma anion gap de terminationOrdered By: Maria Ines Hanley on 03-29-2024 Anion gap [Moles/Vol] 7.4 mmol/L Normal 6.0-15.0 [facility] Comment on above: Performed By: #### S PE, IMM RICKEY, KAPPA, B2-MICRO #### [facility] , #### LDH, CMP, CBC, HAPT #### [facility] [address] [place] [address] Anion gap [Moles/Vol] Serum or plasma an ion gap determination 6.0-15.0 [facility] Serum or plasma beta globuli n measurement by electrophoresis (mass/volume)Ordered By: Maria Ines Hanley on 03-29-2024 Beta globulin Elph [Mass/Vol] 0.8 g/dL 0.7-1.3 [facility] Beta globulin Elph [Mass/Vol] Serum or plasma beta globulin measurement by electrophoresis (mass/volume) 0.7-1.3 [facility] Serum or plasma ggzc-7-nbxmd globulin measurement (mass/volume)Ordered By: Maria Ines Hanley on 03-29-2024 Qpxw-3-Mgfpotluddlso [Mass/Vol] 2.2 ug/mL 0.6-2.4 [facility] Comment on above: Siemens Immulite 200 0 Immunochemiluminometric assay (ICMA)Values obtained with different assay methods or kits cannotbe used interchangeably. Results cannot be interpreted asabsolute evidence of the presence or absence of malignantdisease.Performed at: [employer] [address] [id number] Director: Sohan Broderick MD, Phone: [phone] Houj-8-Rypuftzyiqvjy [Mass/Vol] Serum or plasma heky-9-sxhbhanuaglkj measurement (mass/volume) 0.6-2.4 [facility] Comment on above: Siemens Immulite 200 0 Immunochemiluminometric assay (ICMA)Values obtained with different assay methods or kits cannotbe used interchangeably. Results cannot be interpreted asabsolute evidence of the presence or absence of malignantdisease.Performed at: [employer] [address] [id number] Director: Sohan Broderick MD, Phone: [phone] Serum or plasma gamma globul in measurement by electrophoresis (mass/volume)Ordered By: Maria Ines Hanley on 03-29-2024 Gamma globulin Elph [Mass/Vol] 0.9 g/dL 0.4-1.8 [facility] Gamma globulin Elph [Mass/Vol] Serum or plasma gamma globulin measurement by electrophoresis (mass/volume) 0.4-1.8 [facility] Serum or plasma immunoglobul in free lambda light chains measurement (mass/volume)Ordered By: Maria Ines Hanley on 03-29-2024 Immunoglobulin light chains.lambda.free [Mass/Vol] Immunoglobulin light chains.lambda.free [Mass/volume] in Serum or Plasma 5.7-26.3 [facility] Sodium [Moles/volume] in Ser um or PlasmaOrdered By: Maria Ines Hanley on 03-29-2024 Sodium [Moles/Vol] 140 mmol/L Normal 136-145 [facility] Comment on above: Performed By: #### S PE, IMM RICKEY, KAPPA, B2-MICRO #### [facility] , #### LDH, CMP, CBC, HAPT #### [facility] [address] [place] [address] [place] Sodium [Moles/Vol] Sodium [Moles/volume ] in Serum or Plasma 136-145 [facility] Urea nitrogen [Mass/volume] in Serum or PlasmaOrdered By: Maria Ines Hanley on 03-29-2024 Urea nitrogen [Mass/Vol] 12 mg/dL Normal 02-22 [facility] Comment on above: Performed By: #### S PE, IMM RICKEY, KAPPA, B2-MICRO #### [facility] , #### LDH, CMP, CBC, HAPT #### [facility] [address] Urea nitrogen [Mass/Vol] Urea nitrogen [Mass/volume] in Serum or Plasma 02-22 [facility] WBC Auto (Bld) [#/Vol]Ordere d By: Maria Ines Hanley on 03-29-2024 WBC (Bld) [#/Vol] Leukocytes [#/volume ] in Blood by Automated count 4.1-10.5 [facility] 03-09-20 [facility] Case Information Case Priority: None Programs: -- Referral Source: Card Table Attendant Referral Reason: Care coordination Case Type: Transition [...] (min): 4 Outcome: Case discussion Contact Type: community relations coordinator Contact Name: Jignesh Guerrero Notes: TCM#2- see tcm note Created By: Jignesh Guerrero Date: March 02, 2024 Method: In-person Type: -- Duration (min): -- Outcome: Case discussion Contact Type: Primary care provider Contact Name: Qiana Gayle Notes: TCM#1- see ov note. Created By: Jignesh Guerrero [facility] Medicine Office/Clinpanda Morejon 03-02-2024 Family Medicine Office/Clinic Note Family Medicine Office/Clinic Note HPI Staff Mily is a 68 year old male presenting with ER followup: 02/27/24 US Venous Doppler 02/27/24 Chest XR Hospital: [facility] [place] Visit date: 02/26- 03/01 Symptoms the patient [...] TCM Trans care mgmt 7 day disch 90520 2. Abscess of arm (L02.419: Cutaneous abscess of limb, unspecified) incision is clean and dry sutures intact Ordered: TCM Trans care mgmt 7 day disch 15090 3. Non-smoker (Z78.9: Other specified health status) continue not smoking Ordered: TCM [facility] care mg[facility] 7 day disch 96013 4. BMI 29.0-29.9,adult (Z68.29: Body mass index [BMI] 29.0-29.9, adult) BMI education given Ordered: TCM Trans care mgmt 7 day disch 60052 Follow-up No qualifying data available Problem List/Past [...] cap(s), Oral, Daily, 11 refills Multi Vitamin+ [employer] cpap machine supplies: head gear, mask, tubing [...] virus vaccine, inactivated 05/14/2022 Recorded SARS-CoV-2 (COVID-19) [id number] 05/14/2022 Recorded SARSCoV2 mRNA(usvjqmzyc-gqez-kgwnnm ) vac 12/07/2021 Recorded SARS-CoV-2 (COVID-19) mRNA BNT-162b2 vax 05/10/2021 Recorded SARS-CoV-2 (COVID-19) Ad26 vaccine 10/18/2020 Recorded SARS-CoV-2 (COVID-19) mRNA BNT-162b2 vax 09/27/2020 Recorded SARS-CoV-2 (COVID-19) Ad26 vaccine 09/02/2020 Recorded pneumococcal 13-valent vaccine 06/05/2020 Recorded influenza virus vaccine, inactivated 06/05/2020 Recorded Normal [facility] Comment on above: Result Comment: Elec tronically Signed By: Qiana Gayle\.hector\Date and Time Signed: 03/02/24 14:23 EDT Basic Metabolic Panelon 08 Creatinine Clr Calc Pharmacy 82.82 Normal [facility] Comment on above: Performed By: #### V ANCP #### [place] [address] [place] GFR/1.73 sq M.predicted MDRD (S/P/Bld) [Vol rate/Area] mL/min/{1.73_m2} Normal [facility] Comment on above: Performed By: #### V ANCP #### [place] [address] [place] Calcium [Mass/volume] in Ser um or PlasmaOrdered By: Antony Thompson on 03-01-2024 Calcium [Mass/Vol] 8.8 mg/dL Normal 8.6-10.3 [facility] Comment on above: Performed By: #### V ANCP #### [facility] [address] [place] [address] [place] Carbon dioxide, total [Moles /volume] in Serum or PlasmaOrdered By: Antony Thompson on 03-01-2024 CO2 [Moles/Vol] 24.8 mmol/L Normal 21.0-31.0 [facility] Comment on above: Performed By: #### V ANCP #### [facility] [address] [place] [address] [place] Chloride [Moles/volume] in S flor or PlasmaOrdered By: Antony Thompson on 03-01-2024 Chloride [Moles/Vol] 104 mmol/L Normal 98-107 [facility] Comment on above: Performed By: #### V ANCP #### [place] [address] [place] Creatinine [Mass/volume] in Serum or PlasmaOrdered By: Antony Thompson on 03-01-2024 Creatinine [Mass/Vol] 1.03 mg/dL Normal 0.70-1.30 [facility] Comment on above: Performed By: #### V ANCP #### [facility] [address] [place] [address] ECG 12 lead ECGon 03-01-2024 ECG 12 lead ECG [facility] [place] [address] [place] [address] Electrocardiograph Report Signed Patient: Mily Ibrahim MR#: [id number] : 1955 Acct:[id number] Age/Sex: 68 / M ADM Date: 02/27/24 Loc: Room: [address] [place] [address] Type: ADM IN Attending Dr: Antony Thompson [...] rhythm Normal ECG [id number] on 03/01/2024 12:39:06 PM Referred By: Electronically Signed By: YULIANA BENAVIDES MD [facility] Transcribed By: MUS Signed By Yuliana Benavides MD, [facility] 03/01/24 1239 Normal [facility] Erythrocyte distribution wid th [Ratio] by Automated countOrdered By: Antony Thompson on 03-01-2024 Erythrocyte distribution width (RBC) [Ratio] 12.9 % Normal 12.0-14.8 [facility] Comment on above: Performed By: #### V ANCP #### [facility] [address] [place] [address] [place] Erythrocytes [#/volume] in B lood by Automated countOrdered By: Antony Thompson on 03-01-2024 RBC (Bld) [#/Vol] 4.95 10*6/uL Normal 3.90-5.60 [facility] Comment on above: Performed By: #### V ANCP #### [address] Glucose [Mass/volume] in Ser um or PlasmaOrdered By: Antony Thompson on 03-01-2024 Glucose [Mass/Vol] 126 mg/dL High 70-100 [facility] Comment on above: ADA recommended refe rence rangeRandom Glucose Reference Range is dependent on time and content of last meal. Glucose of more than 200 mg/dL in a nonstressed, ambulatory subject supports the diagnosis of Diabetes Mellitus. Result Comment: [place] om Glucose Reference Range is dependent on time and content of last meal. Glucose of more than 200 mg/dL in a nonstressed, ambulatory subject supports the diagnosis of Diabetes Mellitus. ADA recommended reference range Performed By: #### V ANCP #### [address] Hematocrit [Volume Fraction] of Blood by Automated countOrdered By: Antony Thompson on 03-01-2024 Hematocrit (Bld) [Volume fraction] 43.7 % Normal 38.8-50.0 [facility] Comment on above: Performed By: #### V ANCP #### [address] Hemoglobin [Mass/volume] in BloodOrdered By: Antony Thompson on 03-01-2024 Hemoglobin (Bld) [Mass/Vol] 14.8 g/dL Normal 13.0-17.0 [facility] Comment on above: Performed By: #### V ANCP #### [address] Hemogram CBC Without Diffon 03-01-2024 Mean Corpuscular HGB Conc 33.9 g/dL Normal 32.5-35.6 [facility] Comment on above: Performed By: #### V ANCP #### [address] WBC (Bld) [#/Vol] 19.5 10*3/uL High 4.1-10.5 [facility] Comment on above: Performed By: #### V ANCP #### [place] [id number] [place] Leukocytes [#/volume] correc isa for nucleated erythrocytes in Blood by Automated counOrdered By: Antony Thompson on 03-01-2024 WBC corrected for nucl RBC Auto (Bld) [#/Vol] 19.5 10*3/uL High 4.1-10.5 [facility] MCH [Entitic mass] by Automa isa countOrdered By: Antony Thompson on 03-01-2024 MCH (RBC) [Entitic mass] 29.9 pg Normal 27.5-35.2 [facility] Comment on above: Performed By: #### V ANCP #### [facility] [address] [place] [address] MCHC Auto (RBC) [Mass/Vol]Or dered By: Antony Thompson on 03-01-2024 MCHC (RBC) [Mass/Vol] 33.9 g/dL 32.5-35.6 [facility] MCV [Entitic volume] by Auto mated countOrdered By: Antony Thompson on 03-01-2024 MCV (RBC) [Entitic vol] 88.1 fL Normal 83.5-101 [facility] Comment on above: Performed By: #### V ANCP #### [facility] [address] [place] [address] Magnesium [Mass/volume] in S flor or PlasmaOrdered By: Antony Thompson on 03-01-2024 Magnesium [Mass/Vol] 1.9 mg/dL Normal 1.9-2.7 [facility] Comment on above: Result Comment: PERF ORMED BY: [place] [address] PATHOLOGIST GLUE SPREADER WILLI VILLEDA M.D. Performed By: #### V ANCP #### [facility] [address] [place] [address] No Panel InformationOrdered By: Antony Thompson on 03-01-2024 Estimated GFR (CKD-EPI) > 60.0 mL/Min [facility] Creatinine Clearance (Chem 82.82 [facility] Platelet mean volume [Entiti c volume] in Blood by Automated countOrdered By: Antony Thompson on 03-01-2024 Platelet mean volume (Bld) [Entitic vol] 7.2 fL Normal 6.6-10.1 [facility] Comment on above: Result Comment: PERF ORMED BY: [place] [address] PATHOLOGIST GLUE SPREADER WILLI VILLEDA M.D. Performed By: #### V ANCP #### [address] Platelets [#/volume] in Bloo d by Automated countOrdered By: Antony Thompson on 03-01-2024 Platelets (Bld) [#/Vol] 223 10*3/uL Normal 150-450 [facility] Comment on above: Performed By: #### V ANCP #### [place] [address] [place] Potassium [Moles/volume] in Serum or PlasmaOrdered By: Antony Thompson on 03-01-2024 Potassium [Moles/Vol] 4.6 mmol/L Normal 3.5-5.1 [facility] Comment on above: Performed By: #### V ANCP #### [address] Serum or plasma anion gap de terminationOrdered By: Antony Thompson on 03-01-2024 Anion gap [Moles/Vol] 11.8 mmol/L Normal 6.0-15.0 [facility] Comment on above: Performed By: #### V ANCP #### [place] [address] [place] Sodium [Moles/volume] in Ser um or PlasmaOrdered By: Antony Thompson on 03-01-2024 Sodium [Moles/Vol] 136 mmol/L Normal 136-145 [facility] Comment on above: Performed By: #### V ANCP #### [place] [address] [place] Urea nitrogen [Mass/volume] in Serum or PlasmaOrdered By: Antony Thompson on 03-01-2024 Urea nitrogen [Mass/Vol] 14 mg/dL Normal 7-25 [facility] Comment on above: Performed By: #### V ANCP #### [place] [id number] [place] Aerobic Cultureon 02-29-2024 Aerobic Culture Comment Abscess 3 No Growth 2 Days Comment Abscess 3 No Anaerobes Isolated 3 Days Comment Abscess 3 Gram Stain Result 2+ White Blood Cells No Bacteria Seen PERFORMED BY: [place] [address] PATHOLOGIST GLUE SPREADER WILLI VILLEDA M.D. Normal [facility] Comment on above: Performed By: #### V ANCP #### [address] Aerobic Culture Comment Abscess 2 No Growth 2 Days Comment Abscess 2 No Anaerobes Isolated 3 Days Comment Abscess 2 Gram Stain Result 2+ White Blood Cells No Bacteria Seen PERFORMED BY: [place] [address] PATHOLOGIST GLUE SPREADER WILLI VILLEDA M.D. Normal [facility] Comment on above: Performed By: #### V ANCP #### [address] Aerobic Culture Comment Abscess 1 No Growth 2 Days Comment Abscess 1 No Anaerobes Isolated 3 Days Comment Abscess 1 Gram Stain Result 2+ White Blood Cells No Bacteria Seen PERFORMED BY: [place] [address] PATHOLOGIST GLUE SPREADER WILLI VILLEDA M.D. Normal [facility] Comment on above: Performed By: #### V ANCP #### [place] [id number] [place] ECG 12 lead ECGon 02-29-2024 ECG 12 lead ECG [facility] [place] [address] Electrocardiograph Report Signed Patient: Mily Ibrahim MR#: [id number] : 1955 Acct:[id number] Age/Sex: 68 / M ADM Date: 02/27/24 Loc: Room: 3F8928-8 Type: ADM IN Attending Dr: Antony Thompson [...] change was found Confirmed by KENNEDY EATON [facility], YULIANA (137) on 02/29/2024 4:25:50 PM Referred By: Electronically Signed By: YULIANA BENAVIDES MD [facility] Transcribed By: MUS Signed By Yuliana Benavides MD, [facility] 02/29/24 1625 Normal [facility] Gram stain for investigation of transfusion reactionOrdered By: Enoch Han on 02-29-2024 Microscopic observation Gram stain Nom (Unsp spec) No Anaerobes Isolated 1 Day [facility] Microscopic observation Gram stain Nom (Unsp spec) No Anaerobes Isolated 3 Days [facility] Microscopic observation Gram stain Nom (Unsp spec) No Anaerobes Isolated 1 Day [facility] Microscopic observation Gram stain Nom (Unsp spec) No Anaerobes Isolated 3 Days [facility] Microscopic observation Gram stain Nom (Unsp spec) No Anaerobes Isolated 1 Day [facility] Microscopic observation Gram stain Nom (Unsp spec) No Anaerobes Isolated 3 Days [facility] Andrea 02-29-2024 L ------ Specimen: [id number] Received: 03/01/24 Status: KAEL Moreland Num: [id number] Spec Type: Surgical Subm Dr: Enoch Han DO Tissues: A Abscess (RT ELBOW, CORE) B Abscess (RT ELBOW CORE #2) C Abscess (RT ELBOW CORE #3) D Abscess (RT ELBOW CORE #4) Procedures: HE/4, Gross/Micro L3/4, AE1-AE3, BCL-2, BCL-6, CD10, CD20, CD3, CD5, Ki-67, PAX5 Age/ Patient Sex Location Account Attending Physician Mily Ibrahim/M 4N [id number] Antony Thompson DO SPEC NUM: [id number] RECD: 03/01/24 STATUS: KAEL [place] NUM: [id number] [place]: 02/29/24-684[facility] DR: Enoch Han DO ENTERED: 03/01/[address]: MORENA TYPE: Surgical DEPT: S ORDERED: HE/4, Gross/Micro L3/4, AE1-AE3, BCL-2, BCL-6, CD10, CD20, CD3, CD5, Ki-67, PAX5 ORDERED: HE/4, Gross/Micro L3/4, AE1-AE3, BCL-2, BCL-6, CD10, CD20, CD3, CD5, Ki-67, PAX5 Supplemental Report Addendum 2 Entered: 08/07/24-7471 This case has been reviewed at [facility] pathology department. Their diagnosis is as follows: A. Abscess, right elbow, biopsy: Acute and chronic inflammation with atypical lymphoid infiltrate, morphologically similar to that seen in part D. B. Abscess, right elbow, biopsy: Acute and chronic inflammation with atypical lymphoid infiltrate, morphologically similar to that seen in part D. C. Abscess, right elbow, biopsy: Acute and chronic inflammation with atypical lymphoid infiltrate, morphologically similar to that seen in part D. D. Abscess, right elbow, biopsy: Chronic lymphocytic leukemia/small lymphocytic lymphoma, see comment and synoptic report. Mild acute and chronic inflammation. Please refer to attached report for diagnostic details. Specimen: [id number] Received: 03/01/24 Status: KAEL [place] Num: [id number] Spec Type: Surgical Subm Dr: Enoch Han, Tissues: A Abscess (RT ELBOW, CORE) B Abscess (RT ELBOW CORE #2) C Abscess (RT ELBOW CORE #3) D Abscess (RT ELBOW CORE #4) Procedures: HE/4, Gross/Micro L3/4, AE1-AE3, BCL-2, BCL-6, CD10, CD20, CD3, CD5, Ki-67, PAX5 Patient: Mily Ibrahim [id number] (Continued) Specimen: [id number] Received: 03/01/24 (Continued) Supplemental Report (Continued) Signed (signature on file) Melany Gonzalez MD 03/06/24 1705 Specimen: [id number] Received: 03/01/24 Status: KAEL Moreland Num: [id number] Spec Type: Surgical Subm Dr: Enoch Han, Tissues: A Abscess (RT ELBOW, CORE) B Abscess (RT ELBOW CORE #2) C Abscess (RT ELBOW CORE #3) D Abscess (RT ELBOW CORE #4) Procedures: HE/4, Gross/Micro L3/4, AE1-AE3, BCL-2, BCL-6, CD10, CD20, CD3, CD5, Ki-67, PAX5 Patient: Mily Ibrahim [id number] (Continued) Specimen: [id number] Received: 03/01/24 (Continued) Supplemental Report (Continued) Addendum Signed (signature on file) Melany Gonzalez MD 08/07/24 1551 Addendum 1 Entered: 03/22/24 This case was sent to [facility] for consultation. Their diagnosis is as follows: A?C. Abscess, right elbow, biopsy: Atypical lymphoid infiltrate, morphologically similar to that seen in part D. D. 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 Please see attached consultation report from [facility] for diagnostic details. Addendum Signed (signature on file) Melany Gonzalez MD 03/22/24 1749 Pathological Diagnosis Preliminary report A. Abscess, right elbow, biopsy: Scattered foci of atypical lymphoid proliferation, consistent with high-grade B-cell lymphoma. B. Abscess, right elbow, biopsy: Scattered foci of atypical lymphoid proliferation, consistent with high-grade B-elizabeth (more content not included)... Normal [facility] Serum or plasma trough vanco mycin levelOrdered By: Antony Thompson on 02-29-2024 Vancomycin trough [Mass/Vol] 11.4 ug/mL 10.0-20.0 [facility] Comment on above: Last dose: - Vancomycin [Mass/volume] in Serum or Plasma --peakOrdered By: Antony Thompson on 02-29-2024 Vancomycin peak [Mass/Vol] 30.5 ug/mL 20.0-40.0 [facility] Comment on above: Last dose: - Vancomycin,Peakon 02-29-2024 Vancomycin,Peak 30.5 ug/mL Normal 20.0-40.0 [facility] Comment on above: Order Comment: Comme nt ?DRAW 1 HOUR AFTER INFUSION COMPLETES Date of last dose?: 20240227 Time of last dose?: 2299 Result Comment: Last dose: - PERFORMED BY: [place] [address] PATHOLOGIST GLUE SPREADER WILLI VILLEDA M.D. Performed By: #### V ANCP #### [facility] [address] [place], [place] [id number] [facility] Vancomycin,Troughon 02-29-20 24 Vancomycin,Trough 11.4 ug/mL Normal 10.0-20.0 [facility] Comment on above: Order Comment: Time of next dose? 2299 Date of last dose?: 20240227 Time of last dose?: 2299 Result Comment: Last dose: - PERFORMED BY: [place] [address] PATHOLOGIST GLUE SPREADER WILLI VILLEDA M.D. Performed By: #### C UBLD #### [address] [address] [facility] Activated partial thrombopla stin time (aPTT) in platelet poor plasma by coagulation aOrdered By: Antony Thompson on 07-30-2024 aPTT Coag (PPP) [Time] 31.3 s 25.1-36.5 [facility] Comment on above: A hematocrit value g reater than 55% may lead to inaccurate results in coagulation testing. Patients having hematocrit values >55% require a special collection tube for coagulation studies. Please contact the laboratory at [phone] for redraw instructions. Alanine aminotransferase [En zymatic activity/volume] in Serum or PlasmaOrdered By: Antony Thompson on 02-28-2024 ALT [Catalytic activity/Vol] 13 U/L Normal 7-52 [facility] Comment on above: Performed By: #### C UBLD #### [facility] [address] [place] [address] [place] Albumin [Mass/volume] in Ser um or Plasma by Bromocresol green (BCG) dye binding methoOrdered By: Antony Thompson on 02-28-2024 Albumin BCG dye [Mass/Vol] 3.4 g/dL Low 3.5-5.7 [facility] Alkaline phosphatase [Enzyma tic activity/volume] in Serum or PlasmaOrdered By: Antony Thompson on 02-28-2024 ALP [Catalytic activity/Vol] 46 U/L Normal 34-104 [facility] Comment on above: Performed By: #### C UBLD #### [facility] [address] [place] [address] Aspartate aminotransferase [ Enzymatic activity/volume] in Serum or PlasmaOrdered By: Antony Thompson on 02-28-2024 AST [Catalytic activity/Vol] 13 U/L Normal 13-39 [facility] Comment on above: Performed By: #### C UBLD #### [facility] [address] [place] [address] [place] Automated basophil %Ordered By: Antony Thompson on 02-28-2024 Basophils/100 WBC (Bld) 0.3 % Normal . [facility] Comment on above: Performed By: #### C UBLD #### [facility] [address] [place] [address] [place] Automated basophil countOrde red By: Antony Thompson on 02-28-2024 Basophils (Bld) [#/Vol] 0.0 10*3/uL Normal 0.0-0.2 [facility] Comment on above: Result Comment: PERF ORMED BY: [place] [address] PATHOLOGIST GLUE SPREADER WILLI VILLEDA M.D. Performed By: #### C UBLD #### [address] Automated blood monocyte cou ntOrdered By: Antony Thompson on 02-28-2024 Monocytes (Bld) [#/Vol] 1.3 10*3/uL High 0.0-0.8 [facility] Comment on above: Performed By: #### C UBLD #### [address] Automated eosinophil %Ordere d By: Antony Thompson on 02-28-2024 Eosinophils/100 WBC (Bld) 1.4 % Normal . [facility] Comment on above: Performed By: #### C UBLD #### [address] Automated eosinophil countOr dered By: Antony Thompson on 02-28-2024 Eosinophils (Bld) [#/Vol] 0.2 10*3/uL Normal 0.0-0.45 [facility] Comment on above: Performed By: #### C UBLD #### [address] Automated monocyte %Ordered By: Antony Thompson on 02-28-2024 Monocytes/100 WBC (Bld) 8.9 % Normal . [facility] Comment on above: Performed By: #### C UBLD #### [address] Automated neutrophil %Ordere d By: Antony Thompson on 02-28-2024 Neutrophils/100 WBC (Bld) 64.2 % Normal . [facility] Comment on above: Performed By: #### C UBLD #### [address] Bilirubin.total [Mass/volume ] in Serum or PlasmaOrdered By: Antony Thompson on 02-28-2024 Bilirubin [Mass/Vol] 0.7 mg/dL Normal 0.3-1.0 [facility] Comment on above: Performed By: #### C UBLD #### [place] [id number] [facility] CT humerus RT w conon 2023 CT humerus RT w con [facility] Main [place] [address] [place] [address] CT Scan Report Signed Patient: Mily Ibrahim MR#: [id number] : 1955 Acct:[id number] Age/Sex: 68 / M ADM Date: 02/27/24 Loc: Room: 4D9951-9 Type: ADM IN Attending Dr: Antony Thompson [...] Ervin Coon M.D.02/28/2024 12:48 PM Dictation Location: [place] [address] Transcribed By: [facility] 02/28/24 1248 Dictated By: Ervin Coon DO 02/28/24 1240 Signed By: 02/28/24 1248 Normal [facility] Coagulation Profileon 2023 aPTT Coag (Bld) [Time] 31.3 s Normal 25.1-36.5 [facility] Comment on above: Result Comment: A he matocrit value greater than 55% may lead to inaccurate results in coagulation testing. Patients having hematocrit values >55% require a special collection tube for coagulation studies. Please contact the laboratory at [phone] for redraw instructions. PERFORMED BY: [place] [address] PATHOLOGIST GLUE SPREADER WILLI VILLEDA M.D. Performed By: #### P P #### [address] Complete Blood Count Auto Di ffon 02-28-2024 Erythrocyte distribution width (RBC) [Ratio] 13.5 % Normal 12.0-14.8 [facility] Comment on above: Performed By: #### C UBLD #### [address] Hematocrit (Bld) [Volume fraction] 42.4 % Normal 38.8-50.0 [facility] Comment on above: Performed By: #### C UBLD #### [address] Hemoglobin (Bld) [Mass/Vol] 14.4 g/dL Normal 13.0-17.0 [facility] Comment on above: Performed By: #### C UBLD #### [address] MCH (RBC) [Entitic mass] 30.1 pg Normal 27.5-35.2 [facility] Comment on above: Performed By: #### C UBLD #### [address] MCV (RBC) [Entitic vol] 88.4 fL Normal 83.5-101 [facility] Comment on above: Performed By: #### C UBLD #### [facility] [address] Mean Corpuscular HGB Conc 34.0 g/dL Normal 32.5-35.6 [facility] Comment on above: Performed By: #### C UBLD #### [facility] [address] NRBC% 0.1 /100{WBC} Normal 0-0.5 [facility] Comment on above: Performed By: #### C UBLD #### [facility] [address] Platelet mean volume (Bld) [Entitic vol] 6.9 fL Normal 6.6-10.1 [facility] Comment on above: Performed By: #### C UBLD #### [place] [address] [place] Platelets (Bld) [#/Vol] 191 10*3/uL Normal 150-450 [facility] Comment on above: Performed By: #### C UBLD #### [address] RBC (Bld) [#/Vol] 4.79 10*6/uL Normal 3.90-5.60 [facility] Comment on above: Performed By: #### C UBLD #### [address] Comprehensive Metabolic Pane andrea 02-28-2024 Albumin [Mass/Vol] 3.4 g/dL Low 3.5-5.7 [facility] Comment on above: Performed By: #### C UBLD #### [address] Anion gap [Moles/Vol] 11.3 mmol/L Normal 6.0-15.0 [facility] Comment on above: Performed By: #### C UBLD #### [address] Calcium [Mass/Vol] 8.4 mg/dL Low 8.6-10.3 [facility] Comment on above: Performed By: #### C UBLD #### [place] [address] [place] Chloride [Moles/Vol] 105 mmol/L Normal 98-107 [facility] Comment on above: Performed By: #### C UBLD #### [place] [address] [place] CO2 [Moles/Vol] 28.4 mmol/L Normal 21.0-31.0 [facility] Comment on above: Performed By: #### C UBLD #### [address] Creatinine [Mass/Vol] 1.07 mg/dL Normal 0.70-1.30 [facility] Comment on above: Performed By: #### C UBLD #### [place] [address] [place] Creatinine Clr Calc Pharmacy 79.58 Normal [facility] Comment on above: Performed By: #### C UBLD #### [place] [address] [place] GFR/1.73 sq M.predicted MDRD (S/P/Bld) [Vol rate/Area] mL/min/{1.73_m2} Normal [facility] Comment on above: Performed By: #### C UBLD #### [address] Glucose [Mass/Vol] 92 mg/dL Normal 70-100 [facility] Comment on above: Result Comment: [place] Glucose Reference Range is dependent on time and content of last meal. Glucose of more than 200 mg/dL in a nonstressed, ambulatory subject supports the diagnosis of Diabetes Mellitus. ADA recommended reference range Performed By: #### C UBLD #### [address] Potassium [Moles/Vol] 4.7 mmol/L Normal 3.5-5.1 [facility] Comment on above: Performed By: #### C UBLD #### [address] [place] [address] [facility] Sodium [Moles/Vol] 140 mmol/L Normal 136-145 [facility] Comment on above: Performed By: #### C UBLD #### [facility] [address] [place] [id number] [facility] Urea nitrogen [Mass/Vol] 13 mg/dL Normal 7-25 [facility] Comment on above: Performed By: #### C UBLD #### [facility] [address] [place] [id number] [facility] Family Medicine Office/Clini c Noteon 02-28-2024 Family Medicine Office/Clinic Note Family Medicine Office/Clinic Note HPI Staff Mily is a 68 year old male presenting with lump on arm He went to [facility] on Tuesday Morning 02/26/24 Txd [...] be muscle, nerve involvement. Called ER at [facility] they will do further work up. [...] cap(s), Oral, Daily, 11 refills Multi Vitamin+ [employer] cpap machine supplies: head gear, mask, tubing [...] virus vaccine, inactivated 05/14/2022 Recorded SARS-CoV-2 (COVID-19) [id number] 05/14/2022 Recorded SARSCoV2 mRNA(vzomfaeds-hjmk-qonmcp ) vac 12/07/2021 Recorded SARS-CoV-2 (COVID-19) mRNA [...] called the ER with the story. Normal [facility] Comment on above: Result Comment: Elec tronically Signed By: Juan J EATON, Burton Doe\.br\Date and Time Signed: 02/28/24 12:58 EDT INR in Platelet poor plasma by Coagulation assayOrdered By: Antony Thompson on 02-28-2024 INR Coag (PPP) [Relative time] 1.1 {INR} [facility] Comment on above: INR Therapeutic [...] 4.5 Performed By: #### P P #### [place] [address] [place] Leukocytes [#/volume] in Blo od by Automated countOrdered By: Antony Thompson on 02-28-2024 WBC (Bld) [#/Vol] 14.5 10*3/uL High 4.1-10.5 [facility] Comment on above: Performed By: #### C UBLD #### [place] [address] [place] Lymphocytes [#/volume] in Bl ood by Automated countOrdered By: Antony Thompson on 02-28-2024 Lymphocytes (Bld) [#/Vol] 3.7 10*3/uL Normal 1.00-4.8 [facility] Comment on above: Performed By: #### C UBLD #### [place] [address] [place] Lymphocytes/100 leukocytes i n Blood by Automated countOrdered By: Antony Thompson on 02-28-2024 Lymphocytes/100 WBC (Bld) 25.2 % Normal . [facility] Comment on above: Performed By: #### C UBLD #### [address] MR humerus RT wo/w conon MR humerus RT wo/w con [facility] [place] [address] MRI Report Signed Patient: Mily Ibrahim MR#: [id number] : 1955 Acct:[id number] Age/Sex: 68 / M ADM Date: 02/27/24 Loc: 4 Room: 4G1376-5 Type: ADM IN Attending Dr: Antony Thompson [...] Ervin Coon M.D.02/28/2024 12:53 PM Dictation Location: [place] [address] Transcribed By: [facility] 02/28/24 1253 Dictated By: Ervin Coon DO 02/28/24 1248 Signed By: 02/28/24 1253 Normal [facility] Magnesiumon 02-28-2024 Magnesium [Mass/Vol] 2.0 mg/dL Normal 1.9-2.7 [facility] Comment on above: Result Comment: PERF ORMED BY: [address] [place] [address] PATHOLOGIST GLUE SPREADER WILLI VILLEDA M.D. Performed By: #### C UBLD #### [facility] [address] [place] [address] Neutrophils [#/volume] in Bl ood by Automated countOrdered By: Antony Thompson on 02-28-2024 Neutrophils (Bld) [#/Vol] 9.3 10*3/uL High 1.8-7.7 [facility] Comment on above: Performed By: #### C UBLD #### [address] Nucleated erythrocytes [Pres ence] in Blood by Automated countOrdered By: Antony Thompson on 02-28-2024 Nucleated RBC Auto Ql (Bld) 0.1 /100{WBC} 0-0.5 [facility] Protein [Mass/volume] in Ser um or PlasmaOrdered By: Antony Thompson on 02-28-2024 Protein [Mass/Vol] 5.6 g/dL Low 6.4-8.9 [facility] Comment on above: Performed By: #### C UBLD #### [address] Prothrombin time (PT)Ordered By: Antony Thompson on 02-28-2024 PT Coag (PPP) [Time] 13.1 s High 9.0-12.9 [facility] Comment on above: A hematocrit value g reater than 55% may lead to inaccurate results in coagulation testing. Patients having hematocrit values >55% require a special collection tube for coagulation studies. Please contact the laboratory at [phone] for redraw instructions. Result Comment: A he matocrit value greater than 55% may lead to inaccurate results in coagulation testing. Patients having hematocrit values >55% require a special collection tube for coagulation studies. Please contact the laboratory at [phone] for redraw instructions. Performed By: #### P P #### [address] Serum globulin measurement b y calculation (mass/volume)Ordered By: Antony Thompson on 02-28-2024 Globulin (S) [Mass/Vol] 2.2 g/dL Normal [facility] Comment on above: Performed By: #### C UBLD #### [address] Serum or plasma albumin/glob ulin mass ratioOrdered By: Antony Thompson on 02-28-2024 Albumin/Globulin [Mass ratio] 1.5 {ratio} [facility] Comment on above: Performed By: #### C UBLD #### [address] XR elbow RT 2Von 02-28-2024 XR elbow RT 2V [facility] Main [place] [address] [place] [address] XRay Report Signed Patient: Mily Ibrahim MR#: [id number] : 1955 Acct:[id number] Age/Sex: 68 / M ADM Date: 02/27/24 Loc: 4N Room: 4B6612-6 Type: ADM IN Attending Dr: Antony Thompson [...] Ronaldo Kenyon M.D.02/28/2024 4:12 PM Dictation Location: [place] [address] Transcribed By: [facility] 02/28/24 1612 Dictated By: Ronaldo Kenyon II, MD 02/28/24 1609 Signed By: 02/28/24 1612 [facility] Ambulatory Visit Summaryon 0 02-27-2024 Ambulatory Visit Summary Ambulatory Visit Summary MILY IBRAHIM :1955 Visit Date:02/27/2024 Ambulatory Visit Instructions Your Diagnosis Cellulitis of right elbow Non-smoker BMI 29.0-29.9,adult Your Care Team Attending Physician - Qiana Gayle Primary Care Physician - Qiana Gayle This Is Your Medications List [facility] (Gregorio cpap machine supplies: head gear, [...] APRN, Marika Mao Where: [facility] [place] [address]- Medications What How Much When Why Instructions Unchanged famotidine (famotidine 20 mg Tab) 1 Tablets By Mouth Every day 20 Unknown, Oral Unchanged finasteride (finasteride 5 mg Tab) 1 Tablets By Mouth Every day Unchanged Misc Prescription ([employer] cpap machine supplies: head gear, mask, tubing [...] for choosing us for your care. Normal [facility] Bacterial blood cultureOrder ed By: Antony Thompson on 02-27-2024 Bacteria identified Cx Nom (Bld) NO GROWTH 5 DAYS [facility] Blood Cultureon 02-27-2024 Bacteria identified Cx Nom (Bld) NO GROWTH 5 DAYS PERFORMED BY: [facility] [address] [place] [id number] PATHOLOGIST GLUE SPREADER WILLI VILLEDA M.D. Normal [facility] Comment on above: Performed By: #### C UBLD #### [place] [id number] [facility] Family Medicine Office/Clini c Noteon 02-16-2024 Family Medicine Office/Clinic Note Family Medicine Office/Clinic Note HPI Staff Mily is a 68 year old male presenting for acute visit Acute: lump right arm/elbow, red and swollen, sometimes warm to the touch, He was working on the [employer] and pushed on the area pretty hard [...] day(s), # 40 cap(s), Refills(s) 0, Pharmacy: [facility] #72, 185, cm, 02/16/24 10:23:00 EDT, Height/Length Dosing, 100.5, kg, 02/16/24 10:23:00 EDT, Weight Dosing methylPREDNISolone, = 1 packet(s), Oral, As Directed, as directed on package labeling, X 6 day(s), # 21 tab(s), Refills(s) 0, Pharmacy: [facility] #[facility], 185, cm, 02/16/24 10:23:00 EDT, Height/Length Dosing, 100.5, kg, 02/16/24 10:23:00 EDT, Weight Dosing 2. BMI 29.0-29.9,adult (Z68.29: Body mass index [BMI] 29.0-29.9, adult) bmi education Ordered: cephalexin, 500 mg = 1 cap(s), Oral, QID, X 10 day(s), # 40 cap(s), Refills(s) 0, Pharmacy: [facility] #[facility], 185, cm, 02/16/24 10:23:00 EDT, Height/Length Dosing, 100.5, kg, 02/16/24 10:23:00 EDT, Weight Dosing methylPREDNISolone, = 1 packet(s), Oral, As Directed, as directed on package labeling, X 6 day(s), # 21 tab(s), Refills(s) 0, Pharmacy: [facility] #[facility], 185, cm, 02/16/24 10:23:00 EDT, Height/Length Dosing, 100.5, kg, 02/16/24 10:23:00 EDT, Weight Dosing 3. Over weight (E66.3: Overweight) Ordered: cephalexin, 500 mg = 1 cap(s), Oral, QID, X 10 day(s), # 40 cap(s), Refills(s) 0, Pharmacy: [facility] #[facility], 185, cm, 02/16/24 10:23:00 EDT, Height/Length Dosing, 100.5, kg, 02/16/24 10:23:00 EDT, Weight Dosing methylPREDNISolone, = 1 packet(s), Oral, As Directed, as directed on package labeling, X 6 day(s), # 21 tab(s), Refills(s) 0, Pharmacy: [facility] #[facility], 185, cm, 02/16/24 10:23:00 EDT, Height/Length Dosing, 100.5, kg, 02/16/24 10:23:00 EDT, Weight Dosing 4. Nonsmoker (Z78.9: Other specified health status) continue not smoking Ordered: cephalexin, 500 mg = 1 cap(s), Oral, QID, X 10 day(s), # 40 cap(s), Refills(s) 0, Pharmacy: [facility] #[facility], 185, cm, 02/16/24 10:23:00 EDT, Height/Length Dosing, 100.5, kg, 02/16/24 10:23:00 EDT, Weight Dosing methylPREDNISolone, = 1 packet(s), Oral, As Directed, as directed on package labeling, X 6 day(s), # 21 tab(s), Refills(s) 0, Pharmacy: [facility] #[facility], 185, cm, 02/16/24 10:23:00 EDT, Height/Length [...] 1 packet(s (more content not included)... Normal [facility] Comment on above: Result Comment: Elec tronically Signed By: Qiana Gayle\.br\Date and Time Signed: 02/16/24 10:58 EDT RAD - MRI Reporton RAD - MRI Report [id number]#1.00TIFF Normal [facility] ISTAT XRay CREon 01-09-2024 ISTAT GFR > 60.0 Normal [facility] Comment on above: Result Comment: PERF ORMED BY: [place] [address] PATHOLOGIST GLUE SPREADER WILLI VILLEDA M.D. Performed By: #### C UBLD #### [address] MR prostate wo/w conon 01-08 MR prostate wo/w con [facility] [address] MRI Report Signed Patient: Mily Ibrahim MR#: [id number] : 1955 Acct:[id number] Age/Sex: 68 / M ADM Date: 01/09/24 Loc: MR Room: Type: [facility] Attending Dr: Marika JURADO Copies to: [...] Barker Jr., D.O.01/09/2024 3:14 PM Dictation Location: [place] [address] Transcribed By: [facility] 01/09/24 1514 Dictated By: Price Barker Jr, DO 01/09/24 1509 Signed By: 01/09/24 1514 Normal [facility] No Panel InformationOrdered By: Marika Fisher on 01-09-2024 Bedside Estimated GFR (eGFR) > 60.0 [facility] Whole blood creatinine measu rementOrdered By: Marika Fisher on 01-09-2024 Creatinine [Mass/Vol] 0.9 mg/dL Normal 0.6-1.3 [facility] Comment on above: ER/ESD physician is notified/shown all ISTAT results.Critical values may be confirmed by laboratory testing ifdeemed necessary by ER attending doctor. Result Comment: ER/E SD physician is notified/shown all ISTAT results. Critical values may be confirmed by laboratory testing if deemed necessary by ER attending doctor. Performed By: #### C UBLD #### [facility] [address] [place], [place] [id number] [facility] Screenson 11-30-2023 Screens [id number]#1.00TIFF Normal [facility] Screens [id number]#1.00TIFF Normal [facility] Ambulatory Visit Summaryon 0 11-29-2023 Ambulatory Visit [...] choosing us for your care. Talha [facility] Patient Educationon 11-29-19 24 Patient Education Oncology [...] Where to find more information ? The [place] [employer]: www.cancer.org ? [place] [employer]: www.auanet.org Contact a health care [...] flu (more content not included)... Normal [facility] Urology Office/Clinic Noteon 11-29-2023 Urology Office/Clinic Note [...] with voice recognition artificial intelligence software, specifically Mentegram, YR.MRKT and or Mediamorph. Substitutions may have occurred due to the [...] to proceed with MRI. Order faxed to [facility]. Patient instructed that violence will take care of precertification process through insurance and will call him to schedule. -Obtain MRI of prostate. If suspicious lesion is identified, will move forward with prostate biopsy. If negative, will recheck PSA in 6 months. 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 [4] Denies any significant change in stream [...] Prostate Canc (more content not included)... Normal [facility] Comment on above: Result Comment: Elec tronically Signed By: MERRY Fisher APRN, Marika Mao\.br\Date and Time Signed: 11/29/23 08:42 EDT Lab Reportson 11-21-2023 Lab Reports [id number]#1.00TIFF [facility] Ambulatory Visit Summaryon 0 10-26-2023 Ambulatory Visit Summary MARGARETBasim MILY [place] :1955 Visit Date:10/26/2023 Ambulatory Visit Instructions Your Diagnosis BMI 29.0-29.9,adult Your Care Team Attending Physician - Qiana Gayle Primary Care Physician - Qiana Gayle This Is Your Medications List Misc Prescription ([employer] cpap machine supplies: head gear, mask, tubing [...] APRN, Marika Mao Where: [facility] Family Medicine Office/Clini c Noteon 10-26-2023 [...] day(s), 14 tab(s), Refill(s) 0, [facility] #[id number], 185, cm, 10/26/23 8:46:00 EDT, Height/Length Dosing, 100.7, kg, 10/26/23 8:38:00 EDT, Weight Dosing methylPREDNISolone, = 1 packet(s), Oral, Once, as directed on package labeling, # 21 tab(s), Refills(s) 0, Pharmacy: [facility] #[id number], 185, cm, 10/26/23 8:46:00 EDT, Height/Length Dosing, [...] dosepak, 1 packet(s), Oral, Once Multi Vitamin+ Gregorio cpap machine supplies: head [...] virus vaccine, inactivated 05/14/2022 Recorded SARS-CoV-2 (COVID-19) [id number] 05/14/2022 Recorded SARSCoV2 mRNA(bwxmzixjo-wezo-yyjmqk ) vac 12/07/2021 Recorded SARS-CoV-2 (COVID-19) mRNA BNT-162b2 vax 05/10/2021 Recorded SARS-CoV-2 (COVID-19) Ad26 vaccine 10/18/2020 Recorded SARS-CoV-2 (COVID-19) mRNA BNT-162b2 vax 09/27/2020 Recorded SARS-CoV-2 (COVID-19) Ad26 vaccine 09/02/2020 Recorded pneumococcal 13-valent vaccine 06/05/2020 Recorded influenza virus vaccine, inactivated 06/05/2020 Recorded Normal [facility] Comment on above: Result Comment: Elec [...] day(s), # 21 cap(s), Refills(s) 0, Pharmacy: [facility] #[id number], 185, cm, 07/20/23 17:39:00 EST, Height/Length Dosing, 98.6, kg, 07/20/23 17:39:00 EST, Weight Dosing doxycycline, 100 mg = 1 cap(s), Oral, q12hr, Take one capsule by mouth every twelve hours for ten days, X 7 day(s), # 14 cap(s), Refills(s) 0, Pharmacy: [facility] #[id number], 185, cm, 07/20/23 17:39:00 EST, Height/Length Dosing, [...] in the office Ordered: Rapid COVID POC 10293 Follow-up No qualifying data available Patient Education Cough, Adult, Bimu-qm-Bhzj Problem List/Past Medical History Ongoing BPH with [...] Oral, Daily, 11 refills Multi Vitamin+ omeprazole [place] cpap machine supplies: head gear, mask, tubing and filters, See Instructions, 1 refills Tessalon 100 mg Cap, 100 mg= 1 cap(s), Oral, TID Allergies No Known Medication Allergies Social History Tobacco - Denies Tobacco Use, 06/02/2020 Never (less than 100 in lifetime) Tobacco Use:. Never Smokeless Tobacco (more content not included)... Normal [facility] Comment on above: Result Comment: Elec tronically Signed By: ADRIANA BEY CNP\.hector\Date and Time Signed: 08/12/23 08:10 EST Patient [...] these instructions at home: Medicines ? Take kdcl-vft-lajceqz and prescription medicines only as told by [...] things can cause a cough. ? Take qtvn-uyc-yhovksk and prescription medicines only as told by [...] provider. Document Revised: 09/05/2020 Document Reviewed: 08/06/2019 [employer] Patient Education ? 2022 [employer] [facility] Ambulatory Visit Summaryon 0 08-11-2023 Ambulatory Visit Summary LULAMILY ALMENDAREZ [place] :1955 Visit Date:08/11/2023 Ambulatory Visit Instructions Your Diagnosis Cough URI due to influenza Nasal congestion Your Care Team Attending Physician - ADRIANA BEY CNP Primary Care Physician - Qiana Gayle This Is Your Medications List [place] [...] EATON, Kassidy Merchant Where: [facility] CBC AUTO DIFFon 08-13-2022 BASO # 0.0 103/ul Normal 0.0-0.1 [facility] Comment on above: Performed By: #### C BC #### [facility] [address] [place] [address] Dr. Dorothy Kaur Basophils/100 WBC (Bld) 0.4 % Normal 0.2-2.0 [facility] Comment on above: Performed By: #### C BC #### [facility] [address] [place] [address] Dr. Dorothy Kaur EO # 0.0 103/ul Normal 0.0-0.7 [facility] Comment on above: Performed By: #### C BC #### [facility] [address] [place] [address] Dr. Dorothy Kaur Eosinophils/100 WBC (Bld) 0.1 % Critically low 0.9-7.0 [facility] Comment on above: Performed By: #### C BC #### [facility] [address] [place] [address] Dr. Dorothy Kaur Erythrocyte distribution width (RBC) [Ratio] 13.2 % Normal 11.0-15.0 [facility] Comment on above: Performed By: #### C BC #### [facility] [address] [place] [address] Dr. Dorothy Kaur Hematocrit (Bld) [Volume fraction] 48.8 % Normal 42.0-54.0 [facility] Comment on above: Performed By: #### C BC #### [facility] [address] [place] [address] Dr. Dorothy Kaur Hemoglobin (Bld) [Mass/Vol] 15.4 g/dL Normal 14.0-18.0 [facility] Comment on above: Performed By: #### C BC #### [facility] [address] [place] [address] Dr. Dorothy Kaur IG # 0.05 10e3/ul Critically high 0.00-0.03 [facility] Comment on above: Performed By: #### C BC #### [facility] [address] [place] [address] Dr. Dorothy Kaur IG % 0.6 % Critically high 0.0-0.5 [facility] Comment on above: Performed By: #### C BC #### [facility] [address] [place] [address] Dr. Dorothy Kaur LYMPH # 2.0 103/ul Normal 1.2-3.8 [facility] Comment on above: Performed By: #### C BC #### [facility] [address] [place] [address] Dr. Dorothy Kaur Lymphocytes/100 WBC (Bld) 22.5 % Normal 20.5-60.0 [facility] Comment on above: Performed By: #### C BC #### [facility] [address] [place] [address] Dr. Dorothy Kaur MANUAL DIFF REQ NO Normal [facility] Comment on above: Performed By: #### C BC #### [facility] [address] [place] [address] Dr. Dorothy Kaur MCH (RBC) [Entitic mass] 30.3 pg Normal 25.9-34.0 [facility] Comment on above: Performed By: #### C BC #### [facility] [address] [place] [address] Dr. Dorothy Kaur MCHC (RBC) [Mass/Vol] 31.6 g/dL Normal 29.9-35.2 [facility] Comment on above: Performed By: #### C BC #### [facility] [address] [place] [address] [address] Dorothy Kaur MCV (RBC) [Entitic vol] 95.9 fL Critically high 80.0-94.0 [facility] Comment on above: Performed By: #### C BC #### [facility] [address] [place] [address] Dr. Dorothy Kaur MONO # 0.9 103/ul Critically high 0.3-0.8 [facility] Comment on above: Performed By: #### C BC #### [facility] [address] [place] [address] Dr. Dorothy Kaur Monocytes/100 WBC (Bld) 9.9 % Normal 1.7-12.0 [facility] Comment on above: Performed By: #### C BC #### [facility] [address] [place] [address] Dr. Dorothy Kaur NEUT # 6.0 103/ul Normal 1.4-6.5 [facility] Comment on above: Performed By: #### C BC #### [facility] [address] [place] [address] Dr. Dorothy Kaur Neutrophils/100 WBC (Bld) 66.5 % Normal 43.0-75.0 [facility] Comment on above: Performed By: #### C BC #### [facility] [address] [place] [address] Dr. Dorothy Kaur Platelet mean volume (Bld) [Entitic vol] 9.4 fL Critically low 9.5-13.5 [facility] Comment on above: Performed By: #### C BC #### [facility] [address] [place] [address] Dr. Dorothy Kaur PLT 148 103/ul Critically low 150-450 [facility] Comment on above: Performed By: #### C BC #### [facility] [address] [place] [address] Dr. Dorothy Kaur RBC 5.09 106/ul Normal 4.70-6.10 [facility] Comment on above: Performed By: #### C BC #### [facility] [address] [place] [address] [address] Dorothy Kaur WBC 9.0 103/ul Normal 4.0-11.0 [facility] Comment on above: Performed By: #### C BC #### [facility] [address] [place] [address] Dr. Dorothy Kaur CBC AUTO DIFFon 02-16-2022 BASO # 0.0 103/ul Normal 0.0-0.1 [facility] Comment on above: Performed By: #### C BC #### [facility] [address] [place] [address] Dr. Dorothy Kaur Basophils/100 WBC (Bld) 0.5 % Normal 0.2-2.0 [facility] Comment on above: Performed By: #### C BC #### [facility] [address] [place] [address] Dr. Dorothy Kaur EO # 0.0 103/ul Normal 0.0-0.7 [facility] Comment on above: Performed By: #### C BC #### [facility] [address] [place] [address] Dr. Dorothy Kaur Eosinophils/100 WBC (Bld) 0.0 % Critically low 0.9-7.0 [facility] Comment on above: Performed By: #### C BC #### [facility] [address] [place] [address] Dr. Dorothy Kaur Erythrocyte distribution width (RBC) [Ratio] 13.2 % Normal 11.0-15.0 [facility] Comment on above: Performed By: #### C BC #### [facility] [address] [place] [address] Dr. Dorothy Kaur Hematocrit (Bld) [Volume fraction] 44.2 % Normal 42.0-54.0 [facility] Comment on above: Performed By: #### C BC #### [facility] [address] [place] [address] Dr. Dorothy Kaur Hemoglobin (Bld) [Mass/Vol] 15.1 g/dL Normal 14.0-18.0 [facility] Comment on above: Performed By: #### C BC #### [facility] [address] [place] [address] Dr. Dorothy Kaur IG # 0.05 10e3/ul Critically high 0.00-0.03 [facility] Comment on above: Performed By: #### C BC #### [facility] [address] [place] [address] Dr. Dorothy Kaur IG % 0.6 % Critically high 0.0-0.5 [facility] Comment on above: Performed By: #### C BC #### [facility] [address] [place] [address] Dr. Dorothy Kaur LYMPH # 2.8 103/ul Normal 1.2-3.8 [facility] Comment on above: Performed By: #### C BC #### [facility] [address] [place] [address] Dr. Dorothy Kaur Lymphocytes/100 WBC (Bld) 34.6 % Normal 20.5-60.0 [facility] Comment on above: Performed By: #### C BC #### [facility] [address] [place] [address] Dr. Dorothy Kaur MANUAL DIFF REQ NO Normal [facility] Comment on above: Performed By: #### C BC #### [facility] [address] [place] [address] Dr. Dorothy Kaur MCH (RBC) [Entitic mass] 30.2 pg Normal 25.9-34.0 [facility] Comment on above: Performed By: #### C BC #### [facility] [address] [place] [address] Dr. Dorothy Kaur MCHC (RBC) [Mass/Vol] 34.2 g/dL Normal 29.9-35.2 [facility] Comment on above: Performed By: #### C BC #### [facility] [address] [place] [address] Dr. Dorothy Kaur MCV (RBC) [Entitic vol] 88.4 fL Normal 80.0-94.0 [facility] Comment on above: Performed By: #### C BC #### [facility] [address] [place] [address] Dr. Dorothy Kaur MONO # 0.6 103/ul Normal 0.3-0.8 [facility] Comment on above: Performed By: #### C BC #### [facility] [address] [place] [address] Dr. Dorothy Kaur Monocytes/100 WBC (Bld) 7.9 % Normal 1.7-12.0 [facility] Comment on above: Performed By: #### C BC #### [facility] [address] [place] [address] Dr. Dorothy Kaur NEUT # 4.5 103/ul Normal 1.4-6.5 [facility] Comment on above: Performed By: #### C BC #### [facility] [address] [place] [address] Dr. Dorothy Kaur Neutrophils/100 WBC (Bld) 56.4 % Normal 43.0-75.0 [facility] Comment on above: Performed By: #### C BC #### [facility] [address] [place] [address] Dr. Dorothy Kaur Platelet mean volume (Bld) [Entitic vol] 8.8 fL Critically low 9.5-13.5 [facility] Comment on above: Performed By: #### C BC #### [facility] [address] [place] [address] Dr. Dorothy Kaur PLT 151 103/ul Normal 150-450 [facility] Comment on above: Performed By: #### C BC #### [facility] [address] [place] [address] Dr. Dorothy Kaur RBC 5.00 106/ul Normal 4.70-6.10 [facility] Comment on above: Performed By: #### C BC #### [facility] [address] [place] [address] Dr. Dorothy Kaur WBC 8.0 103/ul Normal 4.0-11.0 [facility] Comment on above: Performed By: #### C BC #### [facility] [address] [place] [address] [address] Dorothy Kaur LIPID PROFILEon 02-16-2022 CHOL-HDL RATIO NORM SEE BELOW Normal [facility] Comment on above: Result Comment: 3.3 - 4.4 LOW RISK 4.4 - 7.1 AVERAGE RISK 7.1 - 11.0 MODERATE RISK >11.0 HIGH RISK Performed By: #### C MP, LIPID #### [facility] [address] [place] [address] [address] Dorothy Kaur Cholesterol [Mass/Vol] 123 mg/dL Normal <=200 [facility] Comment on above: Performed By: #### C MP, LIPID #### [facility] [address] [address] [address] Dorothy Kaur Cholesterol in HDL [Mass/Vol] 35 mg/dL Critically low 40-60 [facility] Comment on above: Performed By: #### C MP, LIPID #### [facility] [address] [place] [address] Dr. Dorothy Kaur Cholesterol in LDL [Mass/Vol] 73.8 mg/dL Normal [facility] Comment on above: Performed By: #### C MP, LIPID #### [facility] [address] [place] [address] Dr. Dorothy Kaur Cholesterol.total/Chol esterol in HDL [Mass ratio] 3.5 {ratio} Normal [facility] Comment on above: Performed By: #### C MP, LIPID #### [facility] [address] [place] [address] Dr. Dorothy Kaur HDL NORMAL > or = 60 mg/dl - LO W CARDIOVASCULAR RISK <40 mg/dl - HIGH CARDIOVASCULAR RISK Normal [facility] Comment on above: Performed By: #### C MP, LIPID #### [facility] [address] [address] [address] Dorothy Kaur LDL CALC NORMAL SEE BELOW Normal [facility] Comment on above: Result Comment: <100 mg/dl OPTIMAL 100 - 129 mg/dl NEAR OR ABOVE OPTIMAL 130 - 159 mg/dl BORDERLINE HIGH 160 - 189 mg/dl HIGH >190 mg/dl VERY HIGH Performed By: #### C MP, LIPID #### [facility] [address] [place] [address] Dr. Dorothy Kaur Triglyceride [Mass/Vol] 71 mg/dL Normal <=150 [facility] Comment on above: Performed By: #### C MP, LIPID #### [facility] [address] [place] [address] Dr. Dorothy Kaur VLDL CALC 14.2 mg/dL Normal [facility] Comment on above: Performed By: #### C MP, LIPID #### [facility] [address] [place] [address] Dr. Dorothy Kaur PROF 14(COMP METB)on 022 Albumin [Mass/Vol] 3.4 g/dL Normal 3.4-5.0 [facility] Comment on above: Performed By: #### C MP, LIPID #### [facility] [address] [place] [address] Dr. Dorothy Kaur Albumin/Globulin [Mass ratio] 1.2 {ratio} Normal [facility] Comment on above: Performed By: #### C MP, LIPID #### [facility] [address] [place] [address] Dr. Dorothy Kaur ALP [Catalytic activity/Vol] 51 U/L Normal 46-116 [facility] Comment on above: Performed By: #### C MP, LIPID #### [facility] [address] [place] [address] Dr. Dorothy Kaur ALT [Catalytic activity/Vol] 30 U/L Normal 16-63 [facility] Comment on above: Performed By: #### C MP, LIPID #### [facility] [address] [place] [address] Dr. Dorothy Kaur Anion gap [Moles/Vol] 9.9 mmol/L Normal [facility] Comment on above: Performed By: #### C MP, LIPID #### [facility] [address] [place] [address] Dr. Dorothy Kaur AST [Catalytic activity/Vol] 15 U/L Normal 15-37 [facility] Comment on above: Performed By: #### C MP, LIPID #### [facility] [address] [place] [address] Dr. Dorothy Kaur Bilirubin [Mass/Vol] 0.7 mg/dL Normal 0.2-1.0 [facility] Comment on above: Performed By: #### C MP, LIPID #### [facility] [address] [place] [address] Dr. Dorothy Kaur Calcium [Mass/Vol] 8.3 mg/dL Critically low 8.5-10.1 [facility] Comment on above: Performed By: #### C MP, LIPID #### [facility] [address] [place] [address] Dr. Dorothy Kaur Chloride [Moles/Vol] 108 mmol/L Critically high 98-107 [facility] Comment on above: Performed By: #### C MP, LIPID #### [facility] [address] [place] [address] Dr. Dorothy Kaur CO2 [Moles/Vol] 27.2 mmol/L Normal 21.0-32.0 [facility] Comment on above: Performed By: #### C MP, LIPID #### [facility] [address] [place] [address] Dr. Dorothy Kaur Creatinine [Mass/Vol] 1.14 mg/dL Normal 0.70-1.30 [facility] Comment on above: Performed By: #### C MP, LIPID #### [facility] [address] [place] [address] Dr. Dorothy Kaur EGFR-AF ANGOLAN >60 Normal >=60 [facility] Comment on above: Performed By: #### C MP, LIPID #### [facility] [address] [place] [address] Dr. Dorothy Kaur EGFR-NON AF ANGOLAN >60 Normal >=60 [facility] Comment on above: Performed By: #### C MP, LIPID #### [facility] [address] [place] [address] Dr. Dorothy Kaur Globulin (S) [Mass/Vol] 2.8 g/dL Normal [facility] Comment on above: Performed By: #### C MP, LIPID #### [facility] [address] [place] [address] Dr. Dorothy Kaur Glucose [Mass/Vol] 100 mg/dL Normal 74-106 [facility] Comment on above: Performed By: #### C MP, LIPID #### [facility] [address] [place] [address] Dr. Dorothy Kaur Potassium [Moles/Vol] 4.1 mmol/L Normal 3.5-5.1 [facility] Comment on above: Performed By: #### C MP, LIPID #### [facility] [address] [place] [address] Dr. Dorohty Kaur Protein [Mass/Vol] 6.2 g/dL Critically low 6.4-8.2 [facility] Comment on above: Performed By: #### C MP, LIPID #### [facility] [address] [place] [address] Dr. Dorothy Kaur Sodium [Moles/Vol] 141 mmol/L Normal 136-145 [facility] Comment on above: Performed By: #### C MP, LIPID #### [facility] [address] [place] [address] Dr. Dorothy Kaur Urea nitrogen [Mass/Vol] 21.0 mg/dL Critically high 7.0-18.0 [facility] Comment on above: Performed By: #### C MP, LIPID #### [facility] [address] [place] [address] Dr. Dorothy Kaur Urea nitrogen/Creatinine [Mass ratio] 18.4 mg/mg Normal [facility] Comment on above: Performed By: #### C MP, LIPID #### [facility] [address] [place] [address] Dr. Dorothy Kaur Vital Signs Date Time Vital Sign Value Performing Clinician Facility 08-21-2024 13:00-0500 Body height 185.4 cm Shannan Box MD Work Phone: [facility] 08-21-2024 13:00-0500 Body mass index (BMI) [Ratio] 30.19 kg/m2 Shannan Box MD Work Phone: [facility] 08-21-2024 13:00-0500 Body temperature 98.4 [degF] Shannan Box MD Work Phone: [facility] 08-21-2024 13:00-0500 Body weight 103.78 kg Shannan Box MD Work Phone: [facility] 08-21-2024 13:00-0500 Diastolic blood pressure 62 mm[Hg] Shannan Box MD Work Phone: [phone] 08-21-2024 13:00-0500 Heart rate 75 /min Shannan Box MD Work Phone: [facility] 08-21-2024 13:00-0500 Respiratory rate 18 /min Shannan Box MD Work Phone: [facility] 08-21-2024 13:00-0500 SaO2% (BldA) [Mass fraction] 96 % Shannan Box MD Work Phone: [facility] 08-21-2024 13:00-0500 Systolic blood pressure 121 mm[Hg] Shannan Box MD Work Phone: [facility] 05-29-2024 09:18-0400 Body height 185.4 cm Shannan Box MD Work Phone: [facility] 05-29-2024 09:18-0400 Body mass index (BMI) [Ratio] 29.49 kg/m2 Shannan Box MD Work Phone: [facility] 05-29-2024 09:18-0400 Body temperature 98.4 [degF] Shannan Box MD Work Phone: [facility] 05-29-2024 09:18-0400 Body weight 101.38 kg Shannan Box MD Work Phone: [facility] 05-29-2024 09:18-0400 Diastolic blood pressure 72 mm[Hg] Shannan Box MD Work Phone: [facility] 05-29-2024 09:18-0400 Heart rate 76 /min Shannan Box MD Work Phone: [facility] 05-29-2024 09:18-0400 Respiratory rate 16 /min Shannan Box MD Work Phone: [facility] 05-29-2024 09:18-0400 SaO2% (BldA) [Mass fraction] 94 % Shannan Box MD Work Phone: [facility] 05-29-2024 09:18-0400 Systolic blood pressure 120 mm[Hg] Shannan Box MD Work Phone: [facility] 05-10-2024 08:47-0400 Body temperature 97.7 [degF] Qiana Jocelynn BIOINFORMATICS ENGINEER-C Work Phone: [facility] 05-10-2024 08:47-0400 Body weight 101.15 kg Qiana Jocelynn BIOINFORMATICS ENGINEER-C Work Phone: [facility] 05-10-2024 08:47-0400 Diastolic blood pressure 83 mm[Hg] Qiana Jocelynn BIOINFORMATICS ENGINEER-C Work Phone: [facility] 05-10-2024 08:47-0400 Heart rate 72 /min Qiana Jocelynn BIOINFORMATICS ENGINEER-C Work Phone: [facility] 05-10-2024 08:47-0400 Respiratory rate 6 /min Qiana Jocelynn BIOINFORMATICS ENGINEER-C Work Phone: [facility] 05-10-2024 08:47-0400 SaO2% (BldA) [Mass fraction] 99 % Qiana Jocelynn BIOINFORMATICS ENGINEER-C Work Phone: [facility] 05-10-2024 08:47-0400 Systolic blood pressure 125 mm[Hg] Qiana Jocelynn BIOINFORMATICS ENGINEER-C Work Phone: [facility] 05-03-2024 10:50-0400 Body temperature 97.5 [degF] Qiana Jocelynn BIOINFORMATICS ENGINEER-C Work Phone: [facility] 05-03-2024 10:50-0400 Diastolic blood pressure 73 mm[Hg] Qiana Jocelynn BIOINFORMATICS ENGINEER-C Work Phone: [facility] 05-03-2024 10:50-0400 Heart rate 83 /min Qiana Jocelynn BIOINFORMATICS ENGINEER-C Work Phone: [facility] 05-03-2024 10:50-0400 Respiratory rate 16 /min Qiana Jocelynn BIOINFORMATICS ENGINEER-C Work Phone: [facility] 05-03-2024 10:50-0400 SaO2% (BldA) [Mass fraction] 97 % Qiana Jocelynn BIOINFORMATICS ENGINEER-C Work Phone: [facility] 05-03-2024 10:50-0400 Systolic blood pressure 114 mm[Hg] Qiana Jocelynn BIOINFORMATICS ENGINEER-C Work Phone: [facility] 04-24-2024 08:14-0400 Blood Pressure Location Marika Orzech [facility] 04-24-2024 08:14-0400 Diastolic blood pressure 78 mm[Hg] Marika Orzech [facility] 04-24-2024 08:14-0400 Heart rate 77 /min Marika Orzech [facility] 04-24-2024 08:14-0400 Respiratory rate 16 /min Marika Orzech [facility] 04-24-2024 08:14-0400 Systolic blood pressure 126 mm[Hg] Marika Orzech [facility] 04-20-2024 12:05-0400 Diastolic blood pressure 94 mm[Hg] DO Antony Thompson Work Phone: [facility] 04-20-2024 12:05-0400 Heart rate 67 /min DO Antony Thompson Work Phone: [facility] 04-20-2024 12:05-0400 Respiratory rate 16 /min DO Antony Thomspon Work Phone: [facility] 04-20-2024 12:05-0400 SaO2% (BldA) [Mass fraction] 98 % DO Antony Thompson Work Phone: [facility] 04-20-2024 12:05-0400 Systolic blood pressure 143 mm[Hg] DO Antony Thompson Work Phone: [facility] 04-20-2024 11:10-0400 Body temperature 97.8 [degF] DO Antony Thompson Work Phone: [facility] 04-20-2024 10:45-0400 Inhaled oxygen flow rate 0 L/min DO Antony Thompson Work Phone: [facility] 04-20-2024 07:32-0400 Body height 185.42 cm DO Antony Thompson Work Phone: [facility] 04-20-2024 07:32-0400 Body weight 99 kg DO Antony Thompson Work Phone: [facility] 04-16-2024 09:20-0400 Body height 185.4 cm Jered De Leon MD Work Phone: [facility] 04-16-2024 09:20-0400 Body mass index (BMI) [Ratio] 27.71 kg/m2 Jered De Leon MD Work Phone: [facility] 04-16-2024 09:20-0400 Body weight 95.25 kg Jered De Leon MD Work Phone: [facility] 04-16-2024 09:20-0400 Diastolic blood pressure 68 mm[Hg] Jered De Leon MD Work Phone: [facility] 04-16-2024 09:20-0400 Systolic blood pressure 120 mm[Hg] Jered De Leon MD Work Phone: [facility] 04-12-2024 10:52-0400 Body height 185.42 cm DO Antony Thompson Work Phone: [facility] 04-12-2024 10:52-0400 Body mass index (BMI) [Ratio] 28.8 kg/m2 DO Antony Thompson Work Phone: [facility] 04-12-2024 10:52-0400 Body temperature 97.9 [degF] DO Antony Thompson Work Phone: [facility] 04-12-2024 10:52-0400 Body weight 99.33 kg DO Antony Thompson Work Phone: [facility] 04-12-2024 10:52-0400 Diastolic blood pressure 82 mm[Hg] DO Antony Thompson Work Phone: [facility] 04-12-2024 10:52-0400 Heart rate 66 /min DO Antony Thompson Work Phone: [facility] 04-12-2024 10:52-0400 Respiratory rate 16 /min DO Antony Thompson Work Phone: [facility] 04-12-2024 10:52-0400 SaO2% (BldA) [Mass fraction] 97 % DO Antony Thompson Work Phone: [facility] 04-12-2024 10:52-0400 Systolic blood pressure 135 mm[Hg] DO Antony Thompson Work Phone: [facility] 03-29-2024 13:58-0400 Body height 185.42 cm DO Antoyn Thompson Work Phone: [facility] 03-29-2024 13:58-0400 Body mass index (BMI) [Ratio] 29 kg/m2 DO Antony Thompson Work Phone: [facility] 03-29-2024 13:58-0400 Body temperature 97.5 [degF] DO Antony Thompson Work Phone: [facility] 03-29-2024 13:58-0400 Body weight 99.79 kg DO Antony Thompson Work Phone: [facility] 03-29-2024 13:58-0400 Diastolic blood pressure 82 mm[Hg] DO Antony Thompson Work Phone: [facility] 03-29-2024 13:58-0400 Heart rate 73 /min DO Antony Thompson Work Phone: [facility] 03-29-2024 13:58-0400 Respiratory rate 16 /min DO Antony Thompson Work Phone: [facility] 03-29-2024 13:58-0400 SaO2% (BldA) [Mass fraction] 97 % DO Antony Thompson Work Phone: [facility] 03-29-2024 13:58-0400 Systolic blood pressure 138 mm[Hg] DO Antony Thompson Work Phone: [facility] 03-01-2024 15:12-0400 Body temperature 98 [degF] POLYSOMNOGRAPHY TECHNICIAN-BC Marika Orzech Work Phone: [facility] 03-01-2024 15:12-0400 Diastolic blood pressure 60 mm[Hg] POLYSOMNOGRAPHY TECHNICIAN-BC Marika Orzech Work Phone: [facility] 03-01-2024 15:12-0400 Heart rate 71 /min POLYSOMNOGRAPHY TECHNICIAN-BC Marika Orzech Work Phone: [facility] 03-01-2024 15:12-0400 Respiratory rate 15 /min POLYSOMNOGRAPHY TECHNICIAN-BC Marika Orzech Work Phone: [facility] 03-01-2024 15:12-0400 SaO2% (BldA) [Mass fraction] 96 % POLYSOMNOGRAPHY TECHNICIAN-BC Marika Orzech Work Phone: [facility] 03-01-2024 15:12-0400 Systolic blood pressure 104 mm[Hg] POLYSOMNOGRAPHY TECHNICIAN-BC Marika Orzech Work Phone: [facility] 03-01-2024 12:25-0400 Body height 185.42 cm POLYSOMNOGRAPHY TECHNICIAN-BC Marika Orzech Work Phone: [facility] 03-01-2024 05:26-0400 Body weight 99.5 kg POLYSOMNOGRAPHY TECHNICIAN-BC Marika Orzech Work Phone: [facility] 02-29-2024 16:54-0400 Inhaled oxygen flow rate 8 L/min POLYSOMNOGRAPHY TECHNICIAN-BC Marika Orzech Work Phone: [facility] 02-29-2024 14:02-0400 Body mass index (BMI) [Ratio] 28.8 kg/m2 POLYSOMNOGRAPHY TECHNICIAN-BC Marika Orzech Work Phone: [facility] 02-27-2024 23:45-0400 Inhaled oxygen concentration 30 % POLYSOMNOGRAPHY TECHNICIAN-BC Marika Orzech Work Phone: [facility] 02-26-2024 09:10-0400 Body height 185.42 cm POLYSOMNOGRAPHY TECHNICIAN-BC Marika Orzech Work Phone: [facility] 02-26-2024 09:10-0400 Body mass index (BMI) [Ratio] 28.8 kg/m2 POLYSOMNOGRAPHY TECHNICIAN-BC Marika Orzech Work Phone: [facility] 02-26-2024 09:10-0400 Body temperature 98 [degF] POLYSOMNOGRAPHY TECHNICIAN-BC Marika Orzech Work Phone: [facility] 02-26-2024 09:10-0400 Body weight 99.33 kg POLYSOMNOGRAPHY TECHNICIAN-BC Marika Orzech Work Phone: [facility] 02-26-2024 09:10-0400 Diastolic blood pressure 71 mm[Hg] POLYSOMNOGRAPHY TECHNICIAN-BC Marika Orzech Work Phone: [facility] 02-26-2024 09:10-0400 Heart rate 82 /min POLYSOMNOGRAPHY TECHNICIAN-BC Marika Orzech Work Phone: [facility] 02-26-2024 09:10-0400 Respiratory rate 16 /min POLYSOMNOGRAPHY TECHNICIAN-BC Marika Orzech Work Phone: [facility] 02-26-2024 09:10-0400 SaO2% (BldA) [Mass fraction] 96 % POLYSOMNOGRAPHY TECHNICIAN-BC Marika Orzech Work Phone: [facility] 02-26-2024 09:10-0400 Systolic blood pressure 111 mm[Hg] POLYSOMNOGRAPHY TECHNICIAN-BC Marika Orzech Work Phone: [facility] 01-07-2024 10:44-0400 Body height 185.42 cm POLYSOMNOGRAPHY TECHNICIAN-BC Marika Orzech Work Phone: [facility] 01-07-2024 10:44-0400 Body weight 99.79 kg POLYSOMNOGRAPHY TECHNICIAN-BC Marika Orzech Work Phone: [facility] 11-29-2023 08:07-0400 Diastolic blood pressure 72 mm[Hg] Marika Orzech [facility] 11-29-2023 08:07-0400 Heart rate 75 /min Marika Orzech [facility] 11-29-2023 08:07-0400 Respiratory rate 16 /min Marika Orzech [facility] 11-29-2023 08:07-0400 Systolic blood pressure 117 mm[Hg] Marika Fisher [facility] 09-05-2023 15:25-0500 Body height 185.42 cm Anjelica Ganga Other [facility] Other 09-05-2023 15:25-0500 Body mass index (BMI) [Ratio] 29.02 kg/m2 Anjelica Ganga Other [facility] 09-05-2023 15:25-0500 Body temperature 98.4 [degF] Anjelica Ganga Other [facility] Other 09-05-2023 15:25-0500 Body weight 99.79 kg Anjelica Ganga Other [facility] Other 09-05-2023 15:25-0500 Diastolic blood pressure 76 mm[Hg] Anjelica Ganga Other [facility] Other 09-05-2023 15:25-0500 Respiratory rate 16 /min Anjelica Ganga Other [facility] Other 09-05-2023 15:25-0500 SaO2% (BldA) [Mass fraction] 97 % Anjelica Ganga Other [facility] Other 09-05-2023 15:25-0500 Systolic blood pressure 133 mm[Hg] Anjelica Ganga Other [facility] Other 12-31-2022 10:47-0400 Diastolic blood pressure 65 mm[Hg] MD Fuad Sunshine Work Phone: [facility] 12-31-2022 10:47-0400 Heart rate 62 /min MD Fuad Sunshine Work Phone: [facility] 12-31-2022 10:47-0400 Respiratory rate 16 /min MD Fuad Sunshine Work Phone: [facility] 12-31-2022 10:47-0400 SaO2% (BldA) [Mass fraction] 95 % MD Fuad Sunshine Work Phone: [facility] 12-31-2022 10:47-0400 Systolic blood pressure 102 mm[Hg] MD Fuad Sunshine Work Phone: [facility] 12-31-2022 09:17-0400 Body height 185.42 cm MD Fuad Sunsihne Work Phone: [facility] 12-31-2022 09:17-0400 Body temperature 98 [degF] MD Fuad Sunshine Work Phone: [facility] 12-31-2022 09:17-0400 Body weight 97.52 kg MD Fuad Sunshine Work Phone: [facility] 11-24-2022 08:43-0400 Blood Pressure Location Kassidy Lue [facility] 11-24-2022 08:43-0400 Diastolic blood pressure 71 mm[Hg] Kassidy Lue [facility] 11-24-2022 08:43-0400 Heart rate 67 /min Kassidy Lue [facility] 11-24-2022 08:43-0400 Systolic blood pressure 118 mm[Hg] Kassidy Lue [facility] 11-30-2021 08:10-0400 Blood Pressure Location Annette Parker Jr. [facility] 11-30-2021 08:10-0400 Diastolic blood pressure 85 mm[Hg] Annette Keith Mena [facility] 11-30-2021 08:10-0400 Heart rate 75 /min Annette Keith Mena [facility] 11-30-2021 08:10-0400 Systolic blood pressure 131 mm[Hg] Annette Parker [facility] Encounters Encounter Date Encounter Type Care Provider Facility Start: 08-21-2024 End: 08-21-2024 Office outpatient visit 25 minutes Shannan Box MD Work Phone: Division of Hematology & Oncology at [facility] Comment on above: CLL (chronic lymphoc ytic leukemia) (Primary Dx) Start: 08-21-2024 ambulatory QIANA ANDRE [facility] Start: 07-20-2024 End: 07-20-2024 ambulatory Qiana Andre Facility:[facility] Nimisha craven Start: 06-11-2024 End: 06-11-2024 Departed Referred Qiana Andre BIOINFORMATICS ENGINEER-C Work Phone: [facility] Start: 06-11-2024 End: 06-11-2024 ambulatory Qiana Andre BIOINFORMATICS ENGINEER-C Work Phone: [facility] Work Phone: Start: 05-29-2024 End: 05-29-2024 Office consultation new/estab patient 80 min Shannan Box MD Work Phone: Division of Hematology & Oncology at [facility] Comment on above: Cutaneous B-cell lym phoma (Primary Dx); CLL (chronic lymphocytic leukemia); Genetic anomalies of leukocytes Start: 05-29-2024 ambulatory MARIA INES HANLEY [facility] Start: 05-10-2024 Registered Recurring Qiana cota BIOINFORMATICS ENGINEER-C [facility] Work Phone: Start: 05-10-2024 ambulatory Enoch Han Facility :[facility] Start: 05-10-2024 End: 05-10-2024 Patient encounter procedure Qiana Andre BIOINFORMATICS ENGINEER-C Work Phone: [facility] Work Phone: Start: 05-03-2024 End: 05-03-2024 Patient encounter procedure Qiana Andre BIOINFORMATICS ENGINEER-C Work Phone: [facility] Work Phone: Start: 04-30-2024 End: 04-30-2024 Postop follow up visit related to original px Jered Leon MD Work Phone: [facility] Comment on above: 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) Start: 04-30-2024 End: 04-30-2024 ambulatory JERED LEON V Not Available Start: 04-24-2024 End: 04-24-2024 ambulatory Marika Fisher Facility:[facility] Start: 04-24-2024 End: 04-24-2024 Patient encounter procedure Marika X Natalia [facility] Start: 04-20-2024 End: 04-20-2024 Admission to same day surgery center DO Antony Thompson Work Phone: [facility] [place] Start: 04-20-2024 End: 04-20-2024 ambulatory DO Antony Thompson Work Phone: [facility] Work Phone: Start: 04-17-2024 End: 04-17-2024 Departed Referred Qiana Andre BIOINFORMATICS ENGINEER-C Work Phone: [facility] Work Phone: Start: 04-17-2024 End: 04-17-2024 Patient encounter procedure DO Antony Thompson Work Phone: [facility] Work Phone: Start: 04-17-2024 End: 04-17-2024 ambulatory DO Antony Thompson Work Phone: [facility] Work Phone: Start: 04-16-2024 End: 04-16-2024 ambulatory JERED LEON V Not Available Start: 04-16-2024 End: 04-16-2024 Office outpatient new 45 minutes Jered Leon MD Work Phone: [facility] Comment on above: Inguinal adenopathy (Primary Dx); Cutaneous B-cell lymphoma (CMS/HCC) Start: 04-12-2024 End: 04-12-2024 Patient encounter procedure DO Antony Thompson [facility] Work Phone: Start: 04-12-2024 Registered Recurring DO Antony Thompson Work Phone: [facility] Work Phone: Start: 04-04-2024 End: 04-06-2024 External Result Encounter Maria Ines Hanley MD Work Phone: [facility] Unsolicited Start: 04-04-2024 End: 04-06-2024 External Result Encounter Maria Ines Hanley MD Work Phone: [facility] Unsolicited Start: 03-29-2024 End: 03-30-2024 External Result Encounter Maria Ines Hanley MD Work Phone: [facility] Unsolicited Start: 03-29-2024 End: 03-30-2024 External Result Encounter Maria Ines Hanley MD [facility] Phone[facility] Unsolicited Start: 03-29-2024 End: 03-29-2024 Patient encounter procedure DO Antony Thompson Work Phone: [facility] Work Phone: Start: 03-19-2024 End: 03-19-2024 Patient encounter procedure DO Antony Thompson Work Phone: [facility] Work Phone: Start: 03-02-2024 End: 03-02-2024 ambulatory Qiana L Jocelynn Facility:[facility] Start: 03-02-2024 End: 04-04-2024 ambulatory Qiana L Jocelynn Facility:[id number] Start: 02-28-2024 Non-patient / Non-visit POLYSOMNOGRAPHY TECHNICIAN-BC Marika Orzech Work Phone: [facility] Work Phone: Start: 02-27-2024 End: 03-01-2024 Evaluation and management of inpatient POLYSOMNOGRAPHY TECHNICIAN-BC Marika Orzech Work Phone: [facility] Work Phone: Start: 02-27-2024 End: 02-27-2024 ambulatory Qiana L Jocelynn Facility:[facility] Start: 02-26-2024 End: 02-26-2024 Patient encounter procedure POLYSOMNOGRAPHY TECHNICIAN-BC Marika Orzech Work Phone: [facility] Work Phone: Start: 02-16-2024 End: 02-16-2024 ambulatory Qiana L Jocelynn Facility:[facility] Start: 01-09-2024 End: 01-09-2024 Patient encounter procedure POLYSOMNOGRAPHY TECHNICIAN-BC Marika Orzech Work Phone: [facility] [place] Work Phone: Start: 01-09-2024 End: 01-09-2024 ambulatory NON STAFF [facility] Work Phone: Start: 11-29-2023 End: 11-29-2023 ambulatory Marika X Natalia Facility:[facility] Start: 11-29-2023 End: 11-29-2023 Patient encounter procedure Marika X Natalia [facility] Start: 10-26-2023 End: 10-26-2023 ambulatory Qiana Young Andre Facility:[facility] Start: 09-05-2023 End: 09-05-2023 ambulatory Anjelica Ganga Other [place] Other Start: 09-05-2023 Office outpatient vi sit 15 minutes Anjelica Ganga [facility] Start: 08-11-2023 End: 08-11-2023 ambulatory ADRIANA Ana BEY Facility:[facility] Start: 12-31-2022 End: 12-31-2022 Admission to same day surgery center MD Fuad Sunshine Work Phone: [facility] Work Phone: Start: 12-31-2022 End: 12-31-2022 ambulatory MD Fuad Sunshine Work Phone: [facility] Work Phone: Start: 11-24-2022 End: 11-24-2022 Patient encounter procedure Kassidy KahnArnoldo Cunningham [facility] Start: 10-02-2022 End: 10-03-[address] FUAD SUNSHINE . Facility:[facility] Start: 08-13-2022 End: 08-14-[address] FUAD SUNSHINE . Facility:[facility] Start: 03-09-2022 End: 03-09-2022 Patient encounter procedure MD Fuad Sunshine Work Phone: [facility] Start: 02-16-2022 End: 02-17-[address] FUAD SUNSHINE . Facility: Start: 11-30-2021 End: 11-30-2021 Patient encounter procedure Annette Vidal Keith Mena [facility] Start: 11-27-2021 End: 11-28-[address] FUAD SUNSHINE . Facility: Procedures Date Procedure Procedure Detail Performing Clinician Start: 08-21-2024 CBC AND ELECTRONIC DIFF Neeru Dameon Jimenez COMMAND AND CONTROL SPECIALIST-BEVEL GEAR GENERATOR OPERATOR Work Phone: Start: 08-21-2024 Complete blood count with white cell differential, automated Neeru Dameon Jimenez COMMAND AND CONTROL SPECIALIST-BEVEL GEAR GENERATOR OPERATOR Work Phone: Start: 08-21-2024 Comprehensive metabo lic panel Neeru N Jimenez COMMAND AND CONTROL SPECIALIST-BEVEL GEAR GENERATOR OPERATOR Work Phone: Start: 08-21-2024 EXTRA LAVENDER TOP Cori nne N Jimenez COMMAND AND CONTROL SPECIALIST-BEVEL GEAR GENERATOR OPERATOR Work Phone: Start: 08-21-2024 EXTRA TUBES Neeru N Jimenez COMMAND AND CONTROL SPECIALIST-BEVEL GEAR GENERATOR OPERATOR Work Phone: Start: 05-29-2024 Beta-2 microglobulin Se jessica Box [...] IGVH MUTATION ANALYS IS (SOMATIC HYPERMUTATION), BLOOD, JUICE STANDARDIZER Shannan Box MD Work Phone: Start: 05-29-2024 Molecule isolate nucleic Shannan Box MD Work Phone: Start: 05-29-2024 RNA EXTRACTION Shannan Box MD Work Phone: Start: 04-20-2024 Excision of cyst DO Work Phone: Start: 04-04-2024 Positron emission to mography with computed tomography DO Antony Work Phone: Start: 04-04-2024 GLUCOSE POCT GLUCOMETERS Maria Ines Hanley MD Work Phone: Start: 03-29-2024 Assay of haptoglobin quantitative Maria Ines Hanley MD Work Phone: Start: 03-29-2024 Complete blood count with white cell differential, automated Maria Ines Hanley MD Work Phone: Start: 02-29-2024 Procedure on lower extremity POLYSOMNOGRAPHY TECHNICIAN-BC Marika Orzech Work Phone: Start: 02-29-2024 Investigation of tra nsfusion reaction POLYSOMNOGRAPHY TECHNICIAN-BC Marika Orzech Work Phone: Start: 02-28-2024 MRI of right humerus with contrast POLYSOMNOGRAPHY TECHNICIAN-BC Marika Orzech Work Phone: Start: 02-28-2024 Plain X-ray of right elbow POLYSOMNOGRAPHY TECHNICIAN-BC Marika Orzech Work Phone: Start: 02-28-2024 CT of right humerus with contrast POLYSOMNOGRAPHY TECHNICIAN-BC Marika Orzech Work Phone: Start: 02-27-2024 Blood culture for ba cteria, including anaerobic screen DO Antony Thompson Work Phone: Start: 01-09-2024 MR prostate wo/w con FN P-BC Marika Orzech Work Phone: Start: 01-13-2023 Colonoscopy Jered De Leon MD Work Phone: Start: 01-13-2023 Colonoscopy Marika espino Comment on above: repeat in 3 years Start: 12-31-2022 Colonoscopy MD Fuad dunn Work Phone: Start: 10-02-[address] FUAD PAEZ . Comment on above: Performed By: #### P SAD #### [facility] [address] [place] [address] Dr. Dorothy Kaur Start: 08-13-[address] FUAD PAEZ . Comment on above: Performed By: #### P SAD #### [facility] [address] [place] [address] Dr. Dorothy Kaur Start: 03-09-2022 X-ray of left foot MD Hugo Sunshine Work Phone: Start: 11-27-[address] FUAD PAEZ . Comment on above: Performed By: #### P SAD #### [facility] [address] [place] [address] Dr. Dorothy Kaur Start: 06-02-2020 Cystoscopy Annette carnes Jr. Start: 06-07-2018 Ultrasonography by transrectal approach Annette Parker Jr. Start: 01-05-2016 Cystoscopy Annette carnes Jr. Start: 03-08-2011 Transrectal biopsy o f prostate using ultrasound guidance Annette Parker Jr. Tonsillectomy Annette oglesby Plan of Treatment Date Care Activity Detail Author Start: 01-13-2033 Screening for malign ant neoplasm of colon [facility] Start: 12-04-2024 End: 12-04-2024 Patient encounter procedure 12/04/2024 10:00 AM EDT Office Visit Division of Hematology & On[facility] at [facility] [address] [place] [address] Shannan Box MD [address] [place] [address] Division of Hematology & Oncology at [facility] Start: 11-16-2024 End: 11-16-2024 Patient encounter procedure 11/16/2024 11:00 AM EDT Office Visit [facility] [address] [place] [id number] [facility] Start: 10-24-2024 ambulatory Ambulatory Facility:[facility] [place] Start: 07-24-2024 Zoster vaccine hzv l vikas for subcutaneous use ZOSTER (SHINGLES) VACCINE (2 of 2) [facility] Start: 05-29-2024 End: 05-29-2025 Cytogenetic procedure [facility] Comment on above: Expected: 05/29/2024 , Expires: 05/29/2025 Start: 04-20-2024 End: 04-20-2024 [facility] Start: 04-12-2024 Patient referral [facility] Work Phone: Start: 04-01-2024 COVID-19 VACCINE ( season) COVID-19 VACCINE ( season) [facility] Start: 04-01-2024 Influenza vaccination INFLUENZA VACC INE (#1) [facility] Start: 03-01-2024 [facility] Start: 02-29-2024 End: 02-29-2024 [facility] Start: 02-28-2024 Consultation [facility] Start: 02-27-2024 Hospital admission [facility] Start: 02-27-2024 Blood culture for bacteria, including anaerobic screen Blood Culture [facility] Start: 02-27-2024 Drainage of Right Up per Arm Subcutaneous Tissue and Fascia, Open Approach Drainage of Right Upper Arm Subcutaneous Tissue and Fascia, Open Approach [facility] Start: 02-27-2024 Excision of Right Up per Arm Subcutaneous Tissue and Fascia, Open Approach, Diagnostic Excision of Right Upper Arm Subcutaneous Tissue and Fascia, Open Approach, Diagnostic [facility] Start: 12-31-2022 [facility] Start: 06-05-2021 Pneumococcal Vaccine : 65+ Years (2 of 2 - PPSV23 or PCV20) Pneumococcal Vaccine: 65+ Years (2 of 2 - PPSV23 or PCV20) [facility] Start: 07-31-2020 Pneumococcal vaccination PNEUM OCOCCAL VACCINE SERIES (2 of 2 - PPSV23 or PCV20) [facility] Start: 2018 Abdominal aortic aneurysm screening ABDOMINAL AORTIC ANEURYSM HIGH RISK SCREEN [facility] Start: 2013 RSV VACCINE (1 - 1-d ose 60+ series) RSV VACCINE (1 - 1-dose 60+ series) [facility] Start: 11-27-2003 Prostate specific antigen measurement PROSTATE CANCER SCREENING DISCUSSION [facility] Start: 1998 Screening for malign ant neoplasm of colon COLORECTAL CANCER SCREENING DISCUSSION [facility] Start: 1993 Lipid panel LIPID SCREENING [facility] Start: 1972 Third diphtheria, tetanus and acellular pertussis (DTaP) vaccination TDAP (ADULT) [facility] Start: 1972 Zoster vaccine hzv l vikas for subcutaneous use ZOSTER (SHINGLES) VACCINE (1 of 2) [facility] Start: 1953 Hepatitis C screening HEPATITI S C VIRUS SCREENING [facility] Start: 1955 Screening for malign ant neoplasm of colon [facility] Start: 1955 Tetanus vaccination TETANUS [facility] CG 14Q32.3-11Q13 (IGH-CCND1) CG 14Q32.3-11Q13 (IGH-CCND1) Lab Routine CLL (chronic lymphocytic leukemia) Genetic anomalies of leukocytes 05/29/2024 10:51 AM EDT [facility] CG CULTURE CG CULTURE Lab R outine CLL (chronic lymphocytic leukemia) Genetic anomalies of leukocytes 05/29/2024 10:51 AM EDT [facility] CLL EXTENDED FISH PANEL CLL EXTE NDED FISH PANEL Lab Routine CLL (chronic lymphocytic leukemia) Genetic anomalies of leukocytes 05/29/2024 10:51 AM EDT [facility] CYTOGENETIC STUDIES (PERFORMABLE) CYTOGENETIC STUDIES (PERFORMABLE) Lab Routine CLL (chronic lymphocytic leukemia) Genetic anomalies of leukocytes 05/29/2024 10:51 AM EDT [facility] FISH STUDIES FISH STUDIES Lab Routine CLL (chronic lymphocytic leukemia) Genetic anomalies of leukocytes 05/29/2024 10:51 AM EDT [facility] IMMUNOGLOBULINS A/G/ M, QN, SER IMMUNOGLOBULINS A/G/M, QN, SER Lab Routine 03/29/2024 3:21 PM EDT [facility] Work Phone: Patient Education [facility] Work Phone: Patient referral [facility] Work Phone: Immunizations Immunization Date Immunization Notes Care Provider Fa [facility] 05-29-2024 zoster vaccine, unspecified formulation Shannan Box MD Work Phone: [facility] 05-14-2022 influenza virus vaccine, unspecified formulation Kassidy Cunningham [facility] 05-14-2022 Influenza, High-dose Seasonal, Quadrivalent, Preservative Free Shannan Box MD Work Phone: [facility] 05-14-2022 SARS-CoV-2 (COVID-19 ) [id number] Kassidy Cunningham [facility] 12-07-2021 SARS-CoV-2 mRNA (zcjngqxtakt-qpsq-epyva se) vaccine Kassidy Cunningham [facility] 05-10-2021 SARS-CoV-2 (COVID-19 ) mRNA BNT-162b2 vax Kassidy Cunningham [facility] 10-18-2020 SARS-CoV-2 (COVID-19 ) Ad26 vaccine, recombinant Annette Parker Jr. [facility] 09-27-2020 SARS-CoV-2 (COVID-19 ) mRNA BNT-162b2 vax Kassidy Octavio [facility] 09-02-2020 SARS-CoV-2 (COVID-19 ) Ad26 vaccine, recombinant Annette Parker Jr. [facility] 06-05-2020 influenza virus vaccine, unspecified formulation Kassidy Octavio [facility] 06-05-2020 influenza, injectabl e, quadrivalent, preservative free Shannan Box MD Work Phone: [facility] 06-05-2020 pneumococcal conjuga te vaccine, 13 valent Kassidy Cunningham [facility] Payers Date Payer Category Payer Managed Care HMO (unspecified) [employer] AETNA [id number] 2024-Present [address] [place] [address] HMO [id number] 2023 Self-pay [id number] 2021 Unknown GENERIC PAYOR ME DICARE SUPPLEMENT [id number] 2021-Present [phone] [address] [address] [place] [address] [id number] 2018 Medicare [id number] 1959 Medicare [id number] 1959 Private Health Insurance CLI [id number] 1953 Unknown [id number] 2.16.840.1.753007.3.579 .2.593 1953 Unknown [id number] 2.16.840.1.391711.3.579 .2.593 1953 Unknown [id number] 2.16.840.1.561494.3.579 .2.593 1953 Unknown [id number] 2.16.840.1.632600.3.579 .2.593 1953 Unknown [id number] 2.16.840.1.041054.3.579 .2.1259 1953 Unknown [id number] 2.16.840.1.330738.3.579 .2.1259 1953 Unknown [id number] 2.16.840.1.445311.3.579 .2.727 1953 Unknown [id number] 2.16.840.1.214939.3.579 .2.727 1953 Unknown [id number] 2.16.840.1.078961.3.579 .2.727 1953 Unknown [id number] 2.16.840.1.243153.3.579 .2.727 1953 Unknown [id number] 2.16.840.1.602756.3.579 .2.727 1953 Unknown [id number] 2.16.840.1.973840.3.579 .2.727 1953 Unknown [id number] 2.16.840.1.973892.3.579 .2.727 1953 Unknown [id number] 2.16.840.1.487177.3.579 .2.727 1953 Unknown [id number] 2.16.840.1.549887.3.579 .2.727 1953 Unknown [id number] 2.16.840.1.670326.3.579 .2.594 1953 Unknown [id number] 2.16.840.1.954283.3.579 .2.594 Unknown [id number] Unknown [facility] [id number] Unknown [id number] 2.16.840.1.290762.3.579 .2.531 Unknown [id number] 2.16.840.1.302229.3.579 .2.531 Unknown [id number] 2.16.840.1.462339.3.579 .2.531 Unknown [id number] 2.16.840.1.313184.3.579 .2.531 Unknown [id number] 2.16.840.1.656789.3.579 .2.531 Unknown [id number] 2.16.840.1.419353.3.579 .2.531 Worker's Compensation [facility] [id number] Social History Date Type Detail Facility Start: 06-03-2021 End: 04-16-2024 Tobacco smoking status Never smoked tobacco (finding) [facility] Start: 05-29-2024 End: 08-21-2024 Sex Assigned At Male [facility] Start: 1955 Sex Assigned At Male [facility] Tobacco smoking status Smokeless tobacco user within last 30 days [facility] [place] [facility] consumption unknown [facility] Start: 05-29-2024 End: 08-21-2024 History of Social function [facility] Start: 1955 Sex assigned at Not on file [facility] Start: 06-12-2024 Sex Patient sex unknown (finding) [facility] Start: 04-16-2024 Tobacco use and exposure Smokeless tobacco non-user [facility] Start: 04-16-2024 End: 04-30-2024 Alcoholic beverage intake Current drinker of alcohol (finding) [facility] Start: 04-16-2024 Alcohol Comment Alcohol occasional- Caffiene 1 time per day [facility] Start: 08-21-2024 Gender identity Identifies as male gender (finding) [facility] Start: 08-21-2024 Sexual orientation Heterosexual (finding) [facility] Goals Date Patient Goal Desired Activity /State Functional Status Date Assessment Result Facility 04-24-2024 Functional Status N/A [facility] 03-01-2024 Functional status Patient is Pro gressing Toward Baseline [facility] Work Phone: 11-29-2023 Functional Status N/A [facility] 11-24-2022 Functional Status N/A [facility] Mental Status Date Assessment Result Facility 03-01-2024 Cognitive function Cognitive Sta tus Patient at Baseline [facility] Work Phone: Clinical Notes 11-30-2021 to 08-21-2024 Shannan Box MD - 08/21/2024 1:40 PM ESTPatient InstructionsSejessica Box MD - 05/29/2024 9:00 AM EDTLmack Dillard RN - 05/29/2024 9:00 AM EDTPatient Instructions Note Date & Type Note Facility 08-21-2024 History of Present illness Narrative Images from the original note were not included. Date: 08/21/24 Chief Complaint Chief Complaint Patient presents with Follow-up Disease & Treatment History Diagnosis: CLL (04/16/2024) Risk Stratification: Trisomy 12 Treatments: Untreated Diagnosis History Mily Ibrahim is a 68 y.o. male recently diagnosed with chronic lymphocytic leukemia after workup/ treatment for a right arm abscess. He presented to [facility] for a painful lump and pruritic rash on his right arm on 02/28/24. A biopsy of his right arm abscess was completed on 02/29/24 and reviewed by the [facility] on 03/10/24 which showed Chronic lymphocytic leukemia/small [...] lymph node was biopsied on 04/20 by [facility] with cytogenetic analysis, FISH study, and flow cytometry from [facility], and he was diagnosed with atypical lymphoproliferative disorder with findings consistent with histologically aggressive CLL/SLL. His inguinal lymph node biopsy samples were reviewed by [facility] on 05/17, which was in agreement with the previous diagnosis. Consistent with accelerated CLL/SLL. Ki 67 index in proliferation centers of 40%, no areas of large cell transformation seen. Interval history Since his last visit, he has been doing well. He reports that his right elbow is back to normal, and denies any inguinal lymphadenopathy. He reports intermittent minor non-drenching night sweats. His appetite has been good and has gained weight since he was last seen. He denies any fatigue, reporting good energy and he is able to keep up with his work activities. He also notes intermittent heart flutter. Denies any fevers, cramps, diarrhea, bleeding, bruising, nausea, vomiting, abdominal pain, joint/muscle aches, SOB, chest pain, palpitations, leg swelling, chills, recent infections, unintentional weight loss, or increased lymphadenopathy. Review of Systems Review of systems is unremarkable except as documented in the HPI. No past medical history on file. No past surgical history on file. Tonsillectomy Not on File Medications Current Outpatient Medications Medication Sig Finasteride 5 MG tablet Take 1 tablet by mouth daily. hydroCODone-acetaminophen 5-325 MG tablet 1 tablet. Tamsulosin HCl 0.4 MG capsule Take 2 capsules by mouth daily. No family history on file. Patient reports that his father had CLL and lung cancer, and that he has a sister with history of breast cancer. PHYSICAL EXAM Vitals: 08/21/24 1300 BP: 121/62 Pulse: 75 Resp: 18 Temp: 98.4 F (36.9 C) SpO2: 96% ECOG Performance Status 0 GENERAL: well-appearing, NAD [...] LABS: Lab Results Component Value Date WBC 8.98 08/21/2024 HGB 14.2 08/21/2024 HCT 41.3 08/21/2024 PLATELET 184 08/21/2024 MCV 87.3 08/21/2024 Lab Results Component Value Date RBCDISTRIBU 13.3 08/21/2024 GRNLOCYT 60.8 08/21/2024 LYMPHOCYT 30.5 08/21/2024 MONOCYTELEC 7.5 08/21/2024 EOSINOPHILS 0.1 08/21/2024 BASOPHILS 0.4 08/21/2024 LYMPHOCYTABS 2.74 08/21/2024 EOSINOPHLABS <0.04 08/21/2024 PLATELET 184 08/21/2024 MPV 9.1 08/21/2024 Lab Results Component Value Date SODIUM 142 08/21/2024 POTASSIUM 4.0 08/21/2024 CHLORIDE 110 (H) 08/21/2024 CO2 28 08/21/2024 BUN 14 08/21/2024 CREATSERUM 1.00 08/21/2024 GLUCOSE 117 (H) 08/21/2024 Lab Results Component Value Date CALCIUM 8.6 08/21/2024 Lab Results Component Value Date ALT 17 08/21/2024 AST 13 08/21/2024 ALKPHOS 45 08/21/2024 BILITOTAL 0.5 08/21/2024 Lab Results Component Value Date LDH 146 08/21/2024 Pathology: R inguinal LN Bx review by [facility], 05/17/[address] Bx, 04/20/2024 R [...] for new patient evaluation. CLL/SLL with Trisomy 12, IGHV Unmutated. Per outside pathology, this has been called [...] disease related symptoms as reasons for therapy. Previous biopsy slides were reviewed by [facility] pathology on 07/06/24 and supported diagnosis of accelerated CLL/SLL. I discussed that his diagnosis of accelerated CLL/SLL may mean his disease could progress more quickly, but as he is currently asymptomatic and his counts are stable, I recommend he continue with observation. We will obtain NGS panel at his next visit. Rash. We did discuss that CLL/SLL is associated with a variety of dermal manifestations. He was Referred to [facility] dermatology. ID. Up to date with immunizations. Patient states that he still needs second dose Shingrix. Return to clinic: Return in about 3 months (around 11/19/2024) for Dr Box 3-4 Months. We encouraged him to contact the clinic with any questions or concerns. Mr. Ibrahim understands and agrees to the plan. Documented by Ruperto Posey, for Dr. Shannan Box on 08/21/2024 at 4:11 PM All medical record entries made by the Taty were at my direction and personally dictated by me, Shannan Box MD. I have reviewed the chart and agree that the record accurately reflects my personal performance of the history, physical exam, assessment and plan. I have also personally directed, reviewed and agree with the discharge instructions. Shannan Box MD Clinical Team Manager Hematology documented in this encounter [facility] 08-21-2024 Instructions Marcie Guajardo RN - 08/21/2024 1:40 PM EST Thank you for entrusting your care to us at [facility]. Our clinic specifically focuses on the management of patients with Chronic Lymphocytic Leukemia (CLL) and we aim to provide you the best, most innovative treatments available. Despite great advances in the treatment of CLL over the past several decades, we know that we can and should continue to strive for better outcomes. As part of that mission, we will offer you the highest quality standard of care options for treatment, but we will also discuss any potential clinical trials for which you may be eligible. YOUR PRIMARY TEAM Dr. Shannan Jimenez BEVEL GEAR GENERATOR OPERATOR - Nurse Practitioner Sherin Nash BEVEL GEAR GENERATOR OPERATOR - Nurse Practitioner Cynthia Dillard RN - Primary Nurse Duke Omer RN - Secondary Nurse [facility] is a teaching institution; you may also have visits that include medical students, residents, or fellows in training. CONTACT NUMBERS If you are having a medical emergency, please call 911 rather than our office. Clinic triage phone: [phone] (open 21/02) Clinic triage fax: [phone] - If you need medication refills for drugs that we have prescribed you, it is best to let us know during your office visit. If you need a refill before your next visit, please send a message via LastRoom. Please alert us at least 7 days before you run out of medication. - Please contact our office if you have a fever 100.4 or greater What to expect during your visits: We only have clinic on Tuesdays and generally cannot see patients on other days of the week Please bring all medication bottles or a full list including herbal supplements and over the counter medications that you are routinely taking to every visit. This is important to ensure that we know about any potential drug interactions. After checking in, you will have your blood drawn. You will then see a provider to evaluate how well you are tolerating therapy (if on treatment), review test results, and answer any questions you have. At times, our clinic may run behind schedule; we acknowledge that your time is valuable and that this can be frustrating for everyone involved. Please know that we strive to give the best care to each individual patient and make you feel heard, respected, and cared for. Due to the nature of our work, sometimes that takes more time than is allotted in the schedule. Please remember that at some point, the person who needs that extra time may be you and we will certainly aim to give you that even at the expense of running behind schedule for the remainder of the day. During some of your routine visits you may see Dr. Box or one of her nurse practitioners only, especially on days which Dr Box is not in the clinic. Communication of test results: We will review most lab results with you during your visit. Our team will review any labs performed outside of our visits. If you get labs drawn outside of the [facility] system at our request, please let us know when and where you had them drawn so we can ensure that we receive the results. We do not routinely convey normal lab results obtained outside of visits. If there is a lab result that needs to be discussed with you, we will contact you via phone or [email or web address]. With rare exception, we schedule visits shortly after any imaging studies. The purpose of these visits is to review your images with you, discuss the results, and to discuss any potential changes to your treatment plan based on those results. If there is an urgent or emergent finding in your imaging, we will call you. Otherwise, in our experience it is best to have these conversations in person at your visits. Coordination of care: We are helping to take care of you alongside other healthcare teams. You may have medical concerns that are outside of our expertise, so we ask that you maintain your relationship with other healthcare providers (especially your primary care physician); we will likely ask you to contact them for issues unrelated to your CLL or treatment. This is particularly important as we are only able to see patients on Tuesdays, and you may need to be evaluated by a member of your healthcare team prior to our next availability. [facility] LastRoom The medical information you will have access to within the My Chart program is limited (basic laboratory results, summary of medical history, visit history, and selected billing information). If you need results of a test that you can't find within LastRoom, please feel free to call us and we will get back to you with that information. Please allow 24-48 hours for a response when using My Chart. [employer] is a secure way to get access to your health records online. It will also allow you to communicate non-emergent concerns with your health care provider through email. Please note, LastRoom is for non-urgent messages only. If you are reporting symptoms or changes in your condition, please call the clinic triage line at [phone]. For questions or concerns regarding LastRoom access or technical dificulties, please call [phone] or toll free at . MEDICAL RECORDS The Release of Information (ANA MARÍA) area is staffed from 8:00 a.m. to 7:00 p.m. and is available for walk in requests from 8:00 a.m. to 4:[address] [facility] is responsible for answering requests for copies of medical records from various requestors such as insurance companies, attorneys, hospitals and patients. Please note it can take up to 2 weeks to complete your request. [phone]; [phone] (fax). FINANCIAL CONCERNS Any questions regarding billing for services or insurance coverage concerns should be directed to the following departments: [facility] [employer] for insurance coverage questions or to inquire on eligibility for programs and creative solutions to better manage costs for services at The [facility] call: [phone] [facility] for billing questions or questions regarding your statement call: [phone] DISABILITY/FMLA FORMS The forms should be given to the clinic nurse. Please allow up to 2 weeks for all paperwork (disability, FMLA, etc.) to be filled out. The primary nurse is the one who will normally fill this paperwork out for you, and will only call to inform you the paperwork is completed and sent if requested. In order to help you as efficiently as possible, please specify: Which forms you need filled out Where we should send it when completed (to you, your employer, etc).It is important to place the patient s name, employee s name, patient s date, date disability begins and ends, and any required signatures. Ask our team about the suggested recovery time. Results for orders placed or performed in visit on 08/21/24 LACTATE DEHYDROGENASE Result Value Ref Range LD Total 146 100 - 190 U/L COMPREHENSIVE METABOLIC PANEL Result Value Ref Range Sodium 142 135 - 145 mmol/L Potassium 4.0 3.5 - 5.0 mmol/L Chloride 110 (H) 98 - 108 mmol/L BUN 14 7 - 25 mg/dL Creatinine 1.00 0.70 - 1.30 mg/dL Glucose 117 (H) 70 - 99 mg/dL Bilirubin Total 0.5 <1.5 mg/dL Albumin 3.7 3.5 - 5.0 g/dL Total Protein 5.9 (L) 6.4 - 8.3 g/dL AST 13 10 - 39 U/L ALP 45 32 - 126 U/L Calcium 8.6 8.6 - 10.5 mg/dL CO2 28 21 - 31 mmol/L ALT 17 10 - 52 U/L Bun/Crea Ratio 14 Osmolality (Calculated) 298 278 - 305 mOsm/kg Anion Gap 8 7 - 17 mmol/L eGFR, CKD-EPI, Male 81 >=60 mL/min/1.73m2 CBC AND ELECTRONIC DIFF Result Value Ref Range WBC Count 8.98 3.73 - 10.10 K/uL RBC Count 4.73 4.38 - 5.83 M/uL Hemoglobin 14.2 13.4 - 16.8 g/dL Hematocrit 41.3 39.6 - 48.8 % Mean Cell Volume 87.3 79.0 - 94.5 fL Mean Cell Hgb 30.0 26.1 - 33.3 pg Mean Cell Hgb Conc 34.4 31.9 - 36.5 g/dL RBC Distribution 13.3 10.9 - 14.3 % Platelet Count 184 146 - 337 K/uL Mean Platelet Volume 9.1 8.7 - 12.3 fL DIFF STATUS Electronic Differential Segs + Bands Auto 60.8 % Immature Grans % 0.7 % Lymphocyte % Auto 30.5 % Monocyte % Auto 7.5 % Eosinophil % Auto 0.1 % Basophil % Auto 0.4 % Nucleated RBC 0.0 <=0.2 /100 WBC Segs + Bands,Absolute Auto 5.46 1.57 - 6.19 K/uL Immature Grans Absolute 0.06 <=0.07 K/uL Abs Lymph Auto 2.74 0.83 - 3.57 K/uL Abs [place] Auto 0.67 0.24 - 0.93 K/uL Abs Eos Auto <0.04 0.00 - 0.48 K/uL Abs Baso Auto 0.04 0.00 - 0.09 K/uL documented in this encounter [facility] 07-06-2024 Note Request received for second opinion consultation by AL Steele. 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 [facility] Comment on above: Performed By: #### L DANA MONTOYA #### [facility] (DEFAULT) [address] [place] [address] 07-06-2024 Note Request received for second opinion consultation by Sherin J Grantier, COMMAND AND CONTROL SPECIALIST-BEVEL GEAR GENERATOR OPERATOR. Pt w/ history of CLL, skin bx of right elbow abscess c/w CLL involvement. Second opinion on an outside specimen. Clinical Information: Right elbow abscess. [facility] Comment on above: Performed By: #### L DANA MONTOYA #### [facility] (DEFAULT) [address] [place] [address] 05-29-2024 History of Present illness Narrative Images [...] a right arm abscess. He presented to [facility] for a painful lump and pruritic rash on his right arm on 02/28/24. A biopsy of his right arm abscess was completed on 02/29/24 and reviewed by the [facility] on 03/10/24 which showed Chronic lymphocytic leukemia/small [...] lymph node was biopsied on 04/20 by [facility] with cytogenetic analysis, FISH study, and flow cytometry from [facility], and he was diagnosed with atypical lymphoproliferative disorder with findings consistent with histologically aggressive CLL/SLL. His inguinal lymph node biopsy samples were reviewed by [facility] on 05/17, which was in agreement with [...] Pathology: R inguinal LN Bx review by [facility], 05/17/[address] Bx, 04/20/2024 R [...] biopsies have been requested for review by [facility] pathology. Once this review is completed , we will have a better understanding of the biopsy results and will be able to make a reasonable recommendation about further management. Rash. We did discuss that CLL/SLL is associated with a variety of dermal manifestations. He was Referred to [facility]. Return to clinic: open We encouraged [...] with the discharge instructions. Shannan Box MD Clinical Team Manager Hematology Reviewed After Visit Summary with patient and family. Discussed any medication changes and recommendations from physician. All questions answered. Patient and family encouraged to call with any additional questions. documented in this encounter [facility] 05-29-2024 Instructions Karen Omer RN - 05/29/2024 9:00 AM EDT YOUR PRIMARY TEAM Dr. Shannan Jimenez CNP - Nurse Practitioner Sherin Nash CNP - Nurse Practitioner Cynthia Dillard RN - Primary Nurse Duke Omer RN - Secondary Nurse Please contact our office if you develop a temperature of 100.4 or greater. CONTACT NUMBERS Clinic phone: [phone] Clinic fax: [phone] MEDICAL RECORDS The Release of Information (ANA MARÍA) area is staffed from 8:00 a.m. to 7:00 p.m. and is available for walk in requests from 8:00 a.m. to 4:[address] [facility] is responsible for answering requests for copies of medical records from various requestors such as insurance companies, attorneys, hospitals and patients. Please note it can take up to 2 weeks to complete your request. [phone]; [phone] (fax). FINANCIAL CONCERNS Any questions regarding billing for services or insurance coverage concerns should be directed to our billing department at [phone]. DISABILITY FORMS This category includes any form [...] our team about the suggested recovery time. [facility] [employer]Payment is a secure way to get access to your health records online. The medical information you will have access to within the LastRoom program is only selected portions of your [...] For non-emergent concerns, please send us a LastRoom message but describe your issue fully. When sending a message to the provider, please know that these messages will be received and answered by the primary nurse practitioner. The nurse practitioner will consult your physician when needed. For questions or concerns regarding LastRoom access or technical dificulties, please call [phone] or toll free at . __ documented in this encounter [facility] 04-30-2024 History of Present illness Narrative Images from the original note were not included. Patient is status post right inguinal lymph node biopsy. 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 On examination, patient is awake and alert and in no acute distress. Right groin incision is clean and dry without evidence of infection or hematoma/ seroma. 1. 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 Hanley this week. He will be discharged from the office and continue to follow with his primary care physician. documented in this encounter [facility] 04-24-2024 Hospital Discharge instructions Patient Education [...] treatment? Where to find more information The [place] [employer]: www.cancer.org [place] [employer]: www.auanet.org Contact a health care [...] provider. Document Revised: 01/11/2022 Document Reviewed: 01/11/2022 [employer] Patient Education 2023 [employer]. 04/24/2024 08:45:17 Benign Prostatic Hyperplasia Benign Prostatic [...] urethra. Follow these instructions at home: Take jmyc-qeu-agcipqg and prescription medicines only as told by [...] provider. Document Revised: 02/03/2022 Document Reviewed: 02/03/2022 [employer] Patient Education 2023 [employer]. Follow Up Care 02/15/2024 10:43:30 With:Ocatvio EATON, SCOTT Tello, U[facility] Address: When: Unknown Comments:6 mos w/ PSA [facility] 04-24-2024 Note Patient Education Oncology Prostate Cancer [...] Where to find more information ? The [place] [employer]: www.cancer.org ? [place] [employer]: www.auanet.org Contact a health care [...] of the rectum. (more content not included)... [facility] 04-16-2024 History of Present illness Narrative Images from the original note were not included. Mily Ibrahim 1955 Mily Ibrahim is a 68 y.o. male presents with chief complaint of Consult (Inguinal lymph node bx) HPI: The patient is a 68-year-old male presents to discuss right inguinal lymph node biopsy. Patient was diagnosed with chronic lymphocytic leukemia / lymphocytic lymphoma after workup/ treatment for a right arm abscess. Patient did recently undergo a PET scan. Among findings, this showed an FDG avid right inguinal lymph node. Patient denies fevers, weight loss, chest pain, shortness of breath, abdominal pain. Dr. Hanley is his oncologist. Patient's case apparently is being presented to a tumor board this week. SUBJECTIVE: MEDICATIONS: ALLERGIES Current Outpatient Medications Medication Instructions finasteride (PROSCAR) 5 mg, Oral, Daily tamsulosin (FLOMAX) 0.8 mg, Oral, Daily No Known Allergies PAST MEDICAL HISTORY: SOCIAL HISTORY SURGICAL HISTORY: Past Medical History: Diagnosis Date Chicken pox Family history of cancer History of hernia repair Mumps Prostate cancer ([facility]) Social History Tobacco Use Smoking status: Never Smokeless tobacco: Never Substance Use Topics Alcohol use: Yes Comment: Alcohol occasional- Caffiene 1 time per day Drug use: Never Past Surgical History: Procedure Laterality Date ABSCESS DRAINAGE Abscess of right arm above elbow COLONOSCOPY REVIEW OF SYMPTOMS: Review of Systems Constitutional: Negative for fever and unexpected weight change. Respiratory: Negative for shortness of breath. Cardiovascular: Negative for chest pain. Gastrointestinal: Negative for abdominal pain. Genitourinary: Negative for difficulty urinating. Musculoskeletal: Negative for back pain. Neurological: Negative for syncope. OBJECTIVE: Visit Vitals BP 120/68 Ht 6' 1 Wt 210 lb BMI 27.71 kg/m Smoking Status Never BSA 2.22 m Physical Exam Constitutional: General: He is not in acute distress. HENT: Head: Atraumatic. Eyes: General: No scleral icterus. Cardiovascular: Rate and Rhythm: Normal rate and regular rhythm. Pulmonary: Breath sounds: Normal breath sounds. Abdominal: General: There is no distension. Palpations: Abdomen is soft. Tenderness: There is no abdominal tenderness. Genitourinary: Comments: Patient does have a palpable right inguinal lymph node. There is also a smaller palpable left inguinal lymph node. Musculoskeletal: Cervical back: Neck supple. Skin: General: Skin is warm and dry. Neurological: Mental Status: He is alert. ASSESSMENT AND PLAN: Assessment/Plan Diagnoses and all orders for this visit: Inguinal adenopathy Cutaneous B-cell lymphoma (CMS/HCC) Plan will be to perform right inguinal lymph node biopsy. The procedure, benefits, risks including risks of bleeding, infection, hematoma / seroma were discussed. documented in this encounter [facility] 03-19-2024 Evaluation note Diagnosis Onset Date Resolution Encounter for removal of sutures acute March 19 7:45am Other specified postprocedural states acute March 7:45am Cellulitis of right upper arm noneactive March 19 7:45am Cutaneous B-cell lymphoma acute March 29 1:47pm Encounter for coordination of complex care acute March 29 1:47pm History of abscess of skin and subcutaneous tissue acute March 29 1:47pm Cutaneous B-cell lymphoma acute April 12, 2024 10:24am Encounter for coordination of complex care acute April 12, 2024 10:24am History of abscess of skin and subcutaneous tissue acute April 12, 2024 10:24am Cutaneous B-cell lymphoma acute May 03 10:44am Encounter for coordination of complex care acute May 03 10:44am History of abscess of skin and subcutaneous tissue acute May 03 10:44am Encounter for coordination of complex care acute May 10 8:41am History of abscess of skin and subcutaneous tissue acute May 10 8:41am Small lymphocytic B-cell lymphoma involving skin acute May 10, 2024 8:41am [facility] Work Phone: 1(629) 357-660908-01-2024 Discharge summary Author Antony Thompson [facility] March 01, 2024 4:05pm Note Date/Time March 01, 2024 4:0 6pm [facility] [address] [place] [address] Discharge Summary Signed Patient: Mily Ibrahim MR#: [id number] : 1955 Acct:[id number] Age/Sex: 68 / M Adm Date: 4 Loc: 4N Room: [address] [place] [address]: Antony Thompson DO Copies to: Qiana Andre BEVEL GEAR GENERATOR OPERATOR Antony Thompson DO~ Providers Date of Admission: 02/28/24 Date of [...] evening of February 27 as a transfer [facility] facility for chief complaint of mass on [...] please call to reschedule if needed.) Qiana Andre, MOE-C [Primary Care Provider] - 03/02/24 2:00 pm (You have beenscheduled for a follow up appointment for the following date and time, please call to reschedule if needed. This appointment will be in the [place] office. The address is [address] [place] [address]) Exam Physical Exam Vital Signs: Temp Pulse [...] signed by Antony Thompson DO> 03/01/24 1605 [facility] Work Phone: 1(761) 210-540908-01-2024 Progress note Author Enoch Han [facility] March 01, 2024 8:12am Note Date/Time March 01, 2024 8:0 4am [facility] [address] [place] [address] Orthopedic Progress Note Signed Patient: Mily Ibrahim MR#: [id number] : 1955 Acct:[id number] Age/Sex: 68 / M Adm Date: 4 Loc: 4N Room: 0T3801-1 Type: ADM IN Attending Dr: Antony Thompson [...] specimens intraoperative. Documented By: Enoch Han DO 03/01/24801 Signed By: <Electronically signed by Enoch Han DO> 03/01/2412 [facility] Work Phone: 1(825) 899-723707-31-2024 Progress note Author Antony Thompson [facility] February 29, 2024 12:36pm Note Date/Time February 29, 2024 12:3 6pm [facility] [address] [place] [address] Hospitalist Progress Note Signed Patient: Mily Ibrahim MR#: [id number] : 1955 Acct:[id number] Age/Sex: 68 / M Adm Date: 4 Loc: Room: [address] [place] [address] Type: ADM IN Attending Dr: Antony Thompson [...] 02/29/24 11:27 02/29/24 11:27 02/29/24 11:27 02/29/24 11:02/27/24 23:45 Narrative: General: Awake alert, no [...] Arm mass: Plan: ? Ultrasound results from [facility] noted in the H&P ? CT [...] ? Patient's chest x-ray was normal from [place] ? Continue vancomycin ? Orthopedic to take [...] signed by Antony Thompson DO> 02/29/24 1236 [facility] Work Phone: 1(704) 735-261107-30-2024 Progress note Author Antony Thompson [facility] February 28, 2024 3:37pm Note Date/Time February 28, 2024 3:38 pm [facility] [address] [place] [address] Hospitalist Progress Note Signed Patient: Mily Ibrahim MR#: [id number] : 1955 Acct:[id number] Age/Sex: 68 / M Adm Date: 4 Loc: 4N Room: 4O2476-0 Type: ADM IN Attending Dr: Antony Thompson [...] 69 16 115/70 95 Room Air 02/28/24 11:02/28/24 11:02/28/24 11:02/28/24 11:02/28/24 11:02/28/24 11:02/27/24 [...] ? Patient's chest x-ray was normal from [place] ? Start vancomycin after blood cultures were [...] <Electronically signed by Antony Thompson DO> 02/28/24 5778 [facility] Work Phone: 1(487) 816-401107-30-2024 Consult note Author Ata Celestin [facility] February 28, 2024 10:37am Note Date/Time February 28, 2024 10:2 2am [facility] [address] [place] [address] Orthopedic Consult Note Signed Patient: Mily Ibrahim MR#: [id number] : 1955 Acct:[id number] Age/Sex: 68 / M Adm Date: 4 Loc: Room: [address] [place] [address] Type: ADM IN Attending Dr: Antony Thompson DO Copies to: NON STAFF DO Antony Ruiz DO~ History of Present Illness HPI Consult date: 02/28/2024 Requesting provider: Antony Thompson DO History of present illness: Mumtaz is a kmlmk-zoik-wfxkultm 68-year-old male [facility] brachial [facility]. He states that over 2 weeks ago he was working on [employer] whenever he started to feel soreness in that area. He does admit to a scratch on the dorsal aspect of his forearm which healed nicely around the same time. The inner elbow became more swollen and red and painful and he was started on antibiotics by his PCP. Antibiotics did not show any improvement andhe was sent to [place] emergency department for evaluation. An ultrasound was performed at [place] which showed there was a hypoechoic avascular collection adjacent to the basilic vein in the medial aspect of his distal biceps. This measured 1.5 cm. There is also note of a complex mass in the right axilla measuring 3.8 cm. [facility] after that. General surgery was consulted and deferred further treatment to orthopedic surgery. He admits to pain in the area. Denies any numbness or tingling. Has had some possible chills but none currently. Denies any axillary pain. Can move elbow and shoulder without issue. [facility] Medical History Sleep apnea treated with continuous [...] % (Auto) 64.2, Lymph % (Auto) 25.2, [place] % (Auto) 8.9, Eos % (Auto) 1.4, Baso % (Auto) 0.3, Nucleat RBC Rel Count 0.1, Neut # (Auto) 9.3 H, Lymph # (Auto) 3.7, [place] # (Auto) 1.3 H, Eos # (Auto) [...] signed by Ata Celestin DO> 02/28/24 1037 [facility] Work Phone: 1(894) 593-968307-30-2024 Progress note Author Britton Myers [facility] February 28, 2024 8:56am Note Date/Time February 28, 2024 8:56 am [facility] [address] [place] [address] Progress Note Signed Patient: Mily Ibrahim MR#: [id number] : 1955 Acct:[id number] Age/Sex: 68 / M Adm Date: 4 Loc: 4N Room: 9O7441-8 Type: ADM IN Attending Dr: Antony Thompson [...] signed by DO Britton Myers> 02/28/24 0856 [facility] Work Phone: 1(157) 120-681707-29-2024 History and physical note Author Antony Thompson [facility] February 27, 2024 9:06pm Note Date/Time February 27, 2024 8:58 pm [facility] [address] [place] [address] Hospitalist H&P Signed Patient: Mily Ibrahim MR#: [id number] : 1955 Acct:[id number] Age/Sex: 68 / M Adm Date: 4 Loc: Room: [address] [place] [address] Type: ADM IN Attending Dr: Antony Thompson [...] Roughly 10 days ago he was outside inhis yard working on his [email or web address] house and states he was resting his [...] night sweats with this. He arrived at [place] ER earlier this afternoon where an ultrasound of his right arm was obtained, ultrasound was negative for DVT or superficial thrombus. There was a hypoechoicavascular collection adjacent to the basilic vein in the medial aspect of his distal biceps. This measured 1.5 cm. There is also note of a complex mass in the right axilla measuring 3.8 cm. He was subsequently transferred to [facility] for further evaluation and treatment. Blood work from [place] emergency room was notable for a white blood cell countof 14.7, hemoglobin of 15.5, platelets 210. His BNP has sodium of 136, potassium 4.2, chloride 102, carbon oxide 28.4, BUN 11 and creatinine 1.1. Calcium 8.7, remainder of hepatic function panel was normal. Review of Systems Review of Systems All other systems reviewed & are negative unless noted below or in HPI [facility] Medical History Sleep apnea treated with continuous [...] 132/78 95 Room Air 02/27/24 19:28 02/27/24 19:02/27/24 19:02/27/24 19:02/27/24 19:02/27/24 20:45 Narrative: General: [...] cultures ?Patient's chest x-ray was normal from [place] ? Start vancomycin after blood cultures were [...] <Electronically signed by Antony Thompson DO> 02/27/242105 [facility] Work Phone: [phone]) 744-249704-30-2024 Hospital Discharge instructions Patient Education 11/29/2023 08:42:05 [...] treatment? Where to find more information [employer] [place]: www.cancer.org [employer] [place]: www.auanet.org Contact a health care [...] provider. Document Revised: 01/11/2022 Document Reviewed: 01/11/2022 [employer] Patient Education 2022 [employer]. 11/29/2023 08:42:03 Benign Prostatic Hyperplasia Benign Prostatic [...] urethra. Follow these instructions at home: Take aien-qkq-inxnxod and prescription medicines only as told by [...] provider. Document Revised: 02/03/2022 Document Reviewed: 02/03/2022 [employer] Patient Education 2022 [employer]. 11/29/2023 08:41:58 Erectile Dysfunction Erectile Dysfunction Erectile [...] Follow these instructions at home: Medicines Take ndfz-vqt-holbpaw and prescription medicines only as told by [...] provider. Document Revised: 10/14/2021 Document Reviewed: 10/14/2021 [employer] Patient Education 2022 [employer] Follow Up Care 11/24/2022 10:13:29 With:Octavio EATON, SCOTT Tello, URO Address: When: Unknown Comments:pending MRI prostate [facility] 02-05-2024 Evaluation note* Encounter Date Diagnosis [...] twice for the impacted cerumen then the stack yield engineer. Patient states he was sent here to have the impacted cerumen cleaned out from his ear. The right ear was rinsed with warm water and impacted cerumen was cleared. Right ear without erythema or bulging TM, no signs of infection present. Hearing grossly intact. Patient is to avoid using Q-tips in the ears, he was instructed to use lzdn-rwd-yuuzzqu Debrox as instructed on the box as needed for impacted cerumen. Patient was told to follow-up with his primary care provider if symptoms persist. [facility] Discharge [facility] Patient Education 11/24/2022 09:46:19 [...] urethra. Follow these instructions at home: Take xghy-aju-epcscaa and prescription medicines only as told by [...] provider. Document Revised: 02/03/2022 Document Reviewed: 02/03/2022 [employer] Patient Education 2022 [employer] Follow Up Care 10/06/2022 08:16:20 With:Octavio EATON, SCOTT Tello, URO Address: [address] [place] [address] [phone] When:11/25/2023 Comments:PSA [facility] 05-02-2022 Hospital Discharge instructions Patient Education [...] urethra. Follow these instructions at home: Take thtl-apg-mvzynaj and prescription medicines only as told by [...] 07/18/2006 Document Revised: 06/12/2019 Document Reviewed: 08/22/2017 [employer] Patient Education 2020 [employer]. Follow Up Care 06/03/2021 11:05:20 With:Keith Mena MD, Annette Vidal, URO Address: [facility] [address], [place] [address]- When:11/30/2022 Comments:with PSA [facility] Evaluation + Plan note Future Appointments Appointment Date:12/06/2022 08:15:00 AM Scheduled Provider:Annette Parker Jr., MD Location:[facility] Appointment Type:URO Office Visit Diagnostic Tests Pending * PSA Total 11/30/21 [facility] Evaluation + Plan note Future Appointments Appointment Date:11/30/2023 08:00:00 AM Scheduled Provider:Kassidy Cunningham MD Location:[facility] Appointment Type:URO Office Visit Diagnostic Tests Pending * PSA Total 11/24/22 [facility] evaluation + Plan note Future Appointments Appointment Date:10/24/2024 08:00:00 AM Scheduled Provider:Kassidy Cunningham MD Location:[facility] Appointment Type:URO Office Visit Diagnostic Tests Pending * PSA Total 04/24/24 [facility] evaluation noteNo assessment information available [facility] Work Phone: evaluation note* Diagnosis Onset Date Resolution Status Cellulitis of right upper arm noneactive Abscess of arm, right acute Arm mass acute BPH (benign prostatic hyperplasia) acute [facility] Work Phone: evaluation note* Diagnosis Onset Date Resolution Status Cellulitis of right upper arm noneactive Abscess of arm, right resolv ed Arm mass resolved Encounter for removal of sutures acute Other specified postprocedural states acute Cellulitis of right upper arm noneactive 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 Encounter for coordination of complex care acute History of abscess of skin and subcutaneous tissue acute 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 Encounter for coordination of complex care acute History of abscess of skin and subcutaneous tissue acute [facility] Work Phone: Evaluation note* Diagnosis Cutaneous B-cell lymphoma- Primary Other malignant lymphomas, unspecified site, extranodal and solid organ sites CLL (chronic lymphocytic leukemia) Chronic lymphoid leukemia, without mention of having achieved remission Genetic anomalies of leukocytes [facility] Diagnosis Inguinal adenopathy- Primary Enlargement of lymph nodes Cutaneous B-cell lymphoma (CMS/HCC) [facility] 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 [facility] Diagnosis CLL (chronic lymphocytic leukemia)- Primary Chronic lymphoid leukemia, without mention of having achieved remission [facility] Author Janene Crump [facility] December 31, 2022 9:46am Note Date/Time December 31, 2022 9:46a m [facility] [address] [place] [address] Gastroenterology H&P Signed Patient: Mily Ibrahim MR#: [id number] : 1955 Acct:[id number] Age/Sex: 67 / M Adm Date: 3 Loc: Room: Type: [facility] Attending Dr: Janene Crump MD Copies [...] Crump M.D. Documented By: Janene Crump MD 12/31/22944 Signed By: <Electronically signed by Janene Crump MD> 12/31/22945 [facility] Work Phone: History general Narrative - Reported* Type Description Date Surgical History polyp removal from sinus Surgical History tonsillectomy [facility] Other Hospital course Narrative No data available for this section [facility] Hospital Discharge instructions Additional Instructions DISCHARGE [...] years. -Follow up with PCP. -Office number [phone]. [facility] Work Phone: Progress note No data available for this section [facility] reason for referral (narrative)* Consultation (Urgent) - New Request Specialty Diagnoses / Procedures Referred By Missy esquivel Referred To Contact Dermatology Diagnoses CLL (chronic lymphocytic leukemia) Shannan Box MD [address] [place] [address] [address] [place] [address] Referral ID Status Reason Start Date Expiration Date V isits Requested Visits Authorized [id number] New Request 05/29/2024 06/23/2025 1 1 * Consultation (Routine) - New Request Specialty Diagnoses / Procedures Referred By Missy esquivel Referred To Contact Clinical Pathology/Laboratory Medicine Diagnoses CLL (chronic lymphocytic leukemia) Sherin Nash, COMMAND AND CONTROL SPECIALIST-BEVEL GEAR GENERATOR OPERATOR [address], [place] [address] Referral ID Status Reason Start Date Expiration Date V isits Requested Visits Authorized [id number] New Request 05/29/2024 06/23/2025 1 1 * Consultation (Routine) - New Request Specialty Diagnoses / Procedures Referred By Missy esquivel Referred To Contact Clinical Pathology/Laboratory Medicine Diagnoses Cutaneous B-cell lymphoma Sherin Nash, COMMAND AND CONTROL SPECIALIST-BEVEL GEAR GENERATOR OPERATOR [address], [address] [address] Referral ID Status Reason Start Date Expiration Date V isits Requested Visits Authorized [id number] New Request 05/29/2024 06/23/2025 1 1 [facility] Chief Complaint and Reason for Visit [...] of skin and subcutaneous tissue Chief Complaint Admit Date FU FROM HOSP RT ARM March 19, 2024 7: 45am NEW Cellulitis, B cell lymphoma March 022023 1:47pm Follow Up after PET April 12, 2024 10:24am B-Cell Lymphoma April 17, 2024 1:14pm B-Cell Lymphoma April 20, 2024 7:06am follow up after biopsy May 03, 2024 10:44am Follow Up May 10, 2024 8 :41am Cellulitis, B cell lymphoma May 8:42am Unknown June 11, 2024 12:20pm Reason for Visit Admit Date Encounter for removal of sutures March 19, 2024 7:45am Other specified postprocedural states Au kathryn 2023 7:45am Cellulitis of right upper arm March 7:45am Cutaneous B-cell lymphoma March 29 1:47pm Encounter for coordination of complex ca re March 29, 2024 1:47pm History of abscess of skin and subcutane ous tissue March 29, 2024 1:47pm Cutaneous B-cell lymphoma April 10:24am Encounter for coordination of complex ca re April 12, 2024 10:24am History of abscess of skin and subcutane ous tissue April 12, 2024 10:24am Cutaneous B-cell lymphoma May 03 10:44am Encounter for coordination of complex ca re May 03, 2024 10:44am History of abscess of skin and subcutane ous tissue May 03, 2024 10:44am Encounter for coordination of complex ca re May 10, 2024 8:41am History of abscess of skin and subcutane ous tissue May 10, 2024 8:41am 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 May 10, 2024 8:41am Advance Directives No Advanced Directives Records Found Advance Directive Response Recorded Date/ Time Advance Directives nn May 29, 2018 2:23pm Advance Directive Response Recorded Date/ Time Advance Directives No December 29 8:50am Advance Directive Response Recorded Date/ Time Advance Directives No December 29 7:50am Summary Purpose Family History No Family History [...] Active Member Role Status Dates Qiana Andre BIOINFORMATICS ENGINEER-C Primary Care Provider Active Team Status: Inactive [...] 2024 End: March 01, 2024 Qiana Andre BIOINFORMATICS ENGINEER-C Primary Care Provider Active Start: February 27, [...] 2024 End: March 19, 2024 Qiana Andre BIOINFORMATICS ENGINEER-C Primary Care Provider Active Start: March 19, 2024 End: March 19, 2024 Team Status: Inactive Member Role Status Dates Qiana Andre BIOINFORMATICS ENGINEER-C Primary Care Provider Active Start: March 29, 2024 End: March 29, 2024 Maria Ines Hanley MD Attending Provider Active Start: March 29, 2024 End: March 29, 2024 Enoch Han DO Referring Provider Active St art: March 29, 2024 End: March 29, 2024 Team Status: Active Member Role Status Dates Qiana Andre BIOINFORMATICS ENGINEER-C Primary Care Provider Active Start: April 12, 2024 Maria Ines Hanely MD Attending Provider Active Start: April 12, 2024 Enoch Han DO Referring Provider Active St art: April 12, 2024 Team Status: Inactive Member Role Status Dates Qiana Andre BIOINFORMATICS ENGINEER-C Primary Care Provider Active Start: April 12, 2024 End: April 12, 2024 Maria Ines Hanley MD Attending Provider Active Start: April 12, 2024 End: April 12, 2024 Team Status: Inactive Member Role Status Dates Qiana Andre BIOINFORMATICS ENGINEER-C Primary Care Provider Active Start: April 17, 2024 End: April 17, 2024 Jered Leon MD Attending Provider Active Sta rt: April 17, 2024 End: April 17, 2024 Team Status: Inactive Member Role Status Dates Qiana Andre BIOINFORMATICS ENGINEER-C Primary Care Provider Active Start: April 20, 2024 End: April 20, 2024 Jered Leon MD Attending Provider Active Sta rt: April 20, 2024 End: April 20, 2024 Environmental Programs Specialist Relationship Specialty Start Date End Date Qiana Andre [address] [place] [phone] PCP - General Certified Nurse Practitioner 05/29/24 Shannan Box MD [address] [facility] [address]th [place] [phone] Oncologist Hematology 05/24/24 Maria Ines Hanley MD [address] [place] [address] Hematology 05/24/24 Team Status: Inactive Member Role Status Dates Qiana Andre BIOINFORMATICS ENGINEER-C Primary Care Provider Active Start: May 03, 2024 End: May 03, 2024 Maria Ines Hanely MD Attending Provider Active Start: May 03, 2024 End: May 03, 2024 Team Status: Inactive Member Role Status Dates Qiana Andre NP-C Primary Care Provider Active Start: May 10, 2024 End: May 10, 2024 Maria Ines Hanley MD Attending Provider Active Start: May 10, 2024 End: May 10, 2024 Team Status: Active Member Role Status Dates Qiana Andre BIOINFORMATICS ENGINEER-C Primary Care Provider Active Start: May 10, 2024 Maria Ines Hanley MD Attending Provider Active Start: May 10, 2024 Enoch Han DO Referring Provider Active St art: May 10, 2024 Team Status: Inactive Member Role Status Dates Qiana Andre BIOINFORMATICS ENGINEER-C Primary Care Provider Active Start: June 11, 2024 End: June 11, 2024 Hector Ledbetter MD Attending Provider Active Star t: June 11, 2024 End: June 11, 2024 Environmental Programs Specialist Relationship Specialty Start Date End Date Burton Arita MD [address] [place] [phone] PCP - General Family Medicine 04/16/24 Environmental Programs Specialist Relationship Specialty Start Date End Date Qiana Andre [address] [place] [phone] PCP - General Certified Nurse Practitioner 05/29/24 [place] [address] [place] [address] 6[address] [place] [phone] Oncologist Hematology 05/24/24 Maria Ines Hanley MD [address] [place] [address] Hematology 05/24/24 Goals (unrecognized section and content) Goals may be documented in a n alternate section (unrecognized sect ion and content) No Status Records FoundNo Status Records FoundNo Status Records FoundNo Status Records FoundNo Status Records FoundNo Status Records Found INFORMATION SOURCE (unrecogn ized section and content) DATE CREATED AUTHOR 10/05/2022 [facility] DATE CREATED AUTHOR AUTHOR'S ORGANIZ ATION 04/30/2024 [facility] EPIC DATE CREATED AUTHOR AUTHOR'S ORGANIZ ATION 05/21/2024 [facility] DATE CREATED AUTHOR AUTHOR'S ORGANIZ ATION 07/23/2024 [facility] DATE CREATED AUTHOR AUTHOR'S ORGANIZ ATION 08/13/2024 [facility] DATE CREATED AUTHOR AUTHOR'S ORGANIZ ATION 08/28/2024 [facility] REASON FOR VISIT (unrecogniz ed section and content) Reason Comments New Patient Specialty Diagnoses / Procedures Referred By Contrachael t Referred To Contact Hematology & Oncology Diagnoses Cutaneous B-cell lymphoma Maria Ines Hanley MD [address] [place] [address] [facility] [address] [place] [address] Referral ID Status Reason Start Date Expiration Date V isits Requested Visits Authorized [id number] New Request 05/23/2024 06/17/2025 1 1 Reason Comments Consult Inguinal lymph node bx Reason Comments 1st po Lymph node BX Reason Comments Follow-up FOR RECORDS PERTAINING TO PATIENTS WHO ARE [...] BE BASED ON THE PRIMARY CLINICAL RECORDS. [employer] provides no warranty or guarantee of the accuracy or completeness of information in this document.
== END 2024-10-18 06:44 | disposition home or self-care (01) ==
LOC: LAB 06:45
PROVIDERS: PCP Nurse Practitioner; Visit Provider Urology
DX: R97.20 Elevated prostate specific antigen [PSA] (principal)
CPT/HCPCS: 36415; 84402; 84403

== ENCOUNTER 2024-10-24 09:25 | Outpatient (OUT) | payer MEDICARE, SELFPAY ==
--- OUTSIDE RECORDS SUMMARY | 2024-10-24 09:38 | XMS_ITS | CCD ---
Author Organization [facility] Care Team Providers Care Cartridge Loader Name Role Phone FUAD SUNSHINE Primary Care Physician [phone] MD Fuad Sunshine Primary Care Provider KARISHMA [...] Physician MD Fuad Sunshine Primary Care Provider [phone] MD Janene Crump Attending Provider Ganga, Anjelica Unavailable Qiana Andre Primary Care Physician KEHINDE Fisher Marika Attending Provider [phone] NON STAFF Primary Care Provider UnavailDO Antony Veronica Admit Provider DO Antony Thompson Attending Provider [phone] DO Ata Celestin Other Provider Thai, GUEST ROOM INSPECTOR-C Qiana Mcdonough Primary Care Provider MD Maria Ines Hanley Attending Provider DO Enoch Han Referring Provider [phone] MD Jered Leon Attending Provider JERED RODRIGUEZ Attending Unavailable LEON VJERED Attending Unavailable Charu Shannan EATON Unavailable Maria Ines Hanley MD Unavailable Thai, Qiana Primary Care Provider Thai GUEST ROOM INSPECTOR-C, Qiana Mcdonough Primary Care Provider Jered Leon MD Attending Provider [phone] Maria Ines Hanley MD Attending Provider Enoch Han DO Referring Provider Hector Ledbetter MD, V Attending Provider [phone] Burton Arita MD Primary Care Provider [phone] Unavailable [facility] Thai, Qiana Mcdonough Primary Care Unavailable Hector Ledbetter V Admitting Unavailable Hector Ledbetter V Attending Unavailable Thai, Qiana Mcdonough Primary Care Unavailable Leon, Jered Admitting Unavailable Leon, Jered Attending Unavailable OrMarika correia Admitting Unavailable Marika Fisher Attending Unavailable NON STAFF Primary Care Unavailable Enoch Han Referring Unavailable Thai, Qiana Mcdonough Primary Care Unavailable Talon, Maria Ines Admitting Unavailable Talon, Maria Ines Attending Unavailable Antony Thompson Admitting Unavailable Antony Thompson Attending Unavailable Thai, Qiana Mcdonough Primary Care Unavailable Ata Celestin Consulting Unavailable Thai, Qiana Mcdonough Primary Care Unavailable Leon, Jered Admitting Unavailable Leon, Jered Attending Unavailable THAI, QIANA Referring Unavailable THAI, QIANA Primary Care Unavailable CHARU, SHANNAN Perez Attending Unavailable TALON, MARIA INES Referring Unavailable THAI, QIANA Primary Care Unavailable CHARU, SHANNAN Perez Attending Unavailable Thai, Qiana L Attending Unavailable Thai, Qiana L Attending Unavailable Thai, Qiana L Attending Unavailable Thai, Qiana L Attending Unavailable Orzech, Marika X Attending Unavailable Kassidy Cunningham Attending Unavailable Marika Fisher Attending Unavailable Qiana Andre Admitting Unavailable Qiana Andre Attending Unavailable Allergies Allergy Classification Reported Allergen(s) Allergy Type Date of Onset Reaction(s) Facility (1 source) No Known Medication Allergies; Translations: [No Known Medication Allergies] Propensity to adverse reactions (disorder) [facility] Repository Medications Current Medications Medication Drug [...] [#/Vol] 0.04 10*3/uL 0.00 - 0.09 K/uL [facility] Basophils/100 WBC (Bld) 0.4 % [facility] Differential cell count method Nom (Bld) Electronic Differential O [facility] Eosinophils (Bld) [#/Vol] K/uL 0.00 - 0.48 K/uL [facility] Eosinophils/100 WBC (Bld) 0.1 % [facility] Erythrocyte distribution width (RBC) [Ratio] 13.3 % 10.9 - 14.3 % [facility] Hematocrit (Bld) [Volume fraction] 41.3 % 39.6 - 48.8 % [facility] Hemoglobin (Bld) [Mass/Vol] 14.2 g/dL 13.4 - 16.8 g/dL [facility] Immature granulocytes (Bld) [#/Vol] 0.06 10*3/uL NINF - 0.07 K/uL [facility] Immature granulocytes/100 WBC (Bld) 0.7 % [facility] Lymphocytes (Bld) [#/Vol] 2.74 10*3/uL 0.83 - 3.57 K/uL [facility] Lymphocytes/100 WBC (Bld) 30.5 % [facility] MCH (RBC) [Entitic mass] 30.0 pg 26.1 - 33.3 pg [facility] MCHC (RBC) [Mass/Vol] 34.4 g/dL 31.9 - 36.5 g/dL [facility] MCV (RBC) [Entitic vol] 87.3 fL 79.0 - 94.5 fL [facility] Monocytes (Bld) [#/Vol] 0.67 10*3/uL 0.24 - 0.93 K/uL [facility] Monocytes/100 WBC (Bld) 7.5 % [facility] Neutrophils (Bld) [#/Vol] 5.46 10*3/uL 1.57 - 6.19 K/uL [facility] Nucleated RBC/100 WBC (Bld) [Ratio] 0.0 % [facility] Platelet mean volume (Bld) [Entitic vol] 9.1 fL 8.7 - 12.3 fL [facility] Platelets (Bld) [#/Vol] 184 10*3/uL 146 - 337 K/uL [facility] RBC (Bld) [#/Vol] 4.73 10*6/uL [facility] Segmented neutrophils/100 WBC (Bld) 60.8 % [facility] WBC (Bld) [#/Vol] 8.98 10*3/uL 3.73 - 10.10 K/uL [facility] Abs Eos Auto < Normal 0.00-0.48 [facility] Comment on above: Performed By: #### L [id number] #### [facility] (DEFAULT) [address] [address] Basophils (Bld) [#/Vol] 0.04 10*3/uL Normal 0.00-0.09 [facility] Comment on above: Performed By: #### L [id number] #### [facility] (DEFAULT) [address] [address] Basophils/100 WBC (Bld) 0.4 % Normal [facility] Comment on above: Performed By: #### L [id number] #### [facility] (DEFAULT) [address] [address] DIFF STATUS Electronic Differential Normal [facility] Comment on above: Performed By: #### L [id number] #### [facility] (DEFAULT) [address] [address] Eosinophils/100 WBC (Bld) 0.1 % Normal [facility] Comment on above: Performed By: #### L [id number] #### [facility] (DEFAULT) [address] [address] Hematocrit (Bld) [Volume fraction] 41.3 % Normal 39.6-48.8 [facility] Comment on above: Performed By: #### L [id number] #### [facility] (DEFAULT) [address] [address] Hemoglobin (Bld) [Mass/Vol] 14.2 g/dL Normal 13.4-16.8 [facility] Comment on above: Performed By: #### L [id number] #### [facility] (DEFAULT) [address] [address] Immature Grans % 0.7 % Normal [facility] Comment on above: Performed By: #### L [id number] #### [facility] (DEFAULT) [address] [address] Immature Grans Absolute 0.06 K/uL Normal <=0.07 [facility] Comment on above: Performed By: #### L [id number] #### [facility] (DEFAULT) [address] [address] Lymphocytes (Bld) [#/Vol] 2.74 10*3/uL Normal 0.83-3.57 [facility] Comment on above: Performed By: #### L [id number] #### [facility] (DEFAULT) [address] [address] Lymphocytes/100 WBC (Bld) 30.5 % Normal [facility] Comment on above: Performed By: #### L [id number] #### [facility] (DEFAULT) [address] [address] MCV (RBC) [Entitic vol] 87.3 fL Normal 79.0-94.5 [facility] Comment on above: Performed By: #### L [id number] #### [facility] (DEFAULT) [address] [address] Mean Cell Hgb 30.0 pg Normal 26.1-33.3 [facility] Comment on above: Performed By: #### L [id number] #### [facility] (DEFAULT) [address] [address] Mean Cell Hgb Conc 34.4 g/dL Normal 31.9-36.5 [facility] Comment on above: Performed By: #### L [id number] #### [facility] (DEFAULT) [address] [address] Monocytes (Bld) [#/Vol] 0.67 10*3/uL Normal 0.24-0.93 [facility] Comment on above: Performed By: #### L [id number] #### [facility] (DEFAULT) [address] [address] Monocytes/100 WBC (Bld) 7.5 % Normal [facility] Comment on above: Performed By: #### L [id number] #### [facility] (DEFAULT) [address] [place] [address] Nucleated RBC 0.0 /100 WBC Normal <=0.2 [facility] Comment on above: Performed By: #### L [id number] #### [facility] (DEFAULT) [address] [place] [address] Platelet mean volume (Bld) [Entitic vol] 9.1 fL Normal 8.7-12.3 [facility] Comment on above: Performed By: #### L [id number] #### [facility] (DEFAULT) [address] [place] [address] Platelets (Bld) [#/Vol] 184 10*3/uL Normal 146-337 [facility] Comment on above: Performed By: #### L [id number] #### [facility] (DEFAULT) [address] [place] [address] RBC (Bld) [#/Vol] 4.73 10*6/uL Normal 4.38-5.83 [facility] Comment on above: Performed By: #### L [id number] #### [facility] (DEFAULT) [address] [address] RBC Distribution 13.3 % Normal 10.9-14.3 [facility] Comment on above: Performed By: #### L [id number] #### [facility] (DEFAULT) [address] [address] Segs + Bands Auto 60.8 % Normal [facility] Comment on above: Performed By: #### L [id number] #### [facility] (DEFAULT) [address] [place] [address] Segs + Bands,Absolute Auto 5.46 K/uL Normal 1.57-6.19 [facility] Comment on above: Performed By: #### L [id number] #### [facility] (DEFAULT) [address] [place] [address] WBC (Bld) [#/Vol] 8.98 10*3/uL Normal 3.73-10.10 [facility] Comment on above: Performed By: #### L [id number] #### [facility] (DEFAULT) [address] [place] [address] COMPREHENSIVE METABOLIC PANE Andrea 08-21-2024 Albumin [Mass/Vol] 3.7 g/dL 3.5 - 5.0 g/dL [facility] ALP [Catalytic activity/Vol] 45 U/L 32 - 126 U/L [facility] ALT [Catalytic activity/Vol] 17 U/L 10 - 52 U/L [facility] Anion gap [Moles/Vol] 8 mmol/L 7 - 17 mmol/L [facility] AST [Catalytic activity/Vol] 13 U/L 10 - 39 U/L [facility] Bilirubin [Mass/Vol] 0.5 mg/dL NINF - 1.5 mg/dL [facility] Calcium [Mass/Vol] 8.6 mg/dL 8.6 - 10. 5 mg/dL [facility] Chloride [Moles/Vol] 110 mmol/L High 98 - 10 8 mmol/L [facility] CO2 [Moles/Vol] 28 mmol/L 21 - 31 mmol/L [facility] Creatinine [Mass/Vol] 1.00 mg/dL 0.70 - 1.30 mg/dL [facility] eGFR, CKD-EPI, Male 81 - PINF [facility] Comment on above: Reported eGFR is bas ed on the CKD-EPI 2020 equation using creatinine, age, and sex. Glucose [Mass/Vol] 117 mg/dL High 70 - 99 mg/dL [facility] Interpretation and review of laboratory results Abnormal [facility] Osmolality Calc [Osmolality] 298 [facility] Potassium [Moles/Vol] 4.0 mmol/L 3.5 - 5.0 mmol/L [facility] Protein [Mass/Vol] 5.9 g/dL Low 6.4 - 8.3 g/dL [facility] Sodium [Moles/Vol] 142 mmol/L 135 - 145 mmol/L [facility] Urea nitrogen [Mass/Vol] 14 mg/dL 7 - 25 mg/dL [facility] Urea nitrogen/Creatinine [Mass ratio] 14 mg/mg [facility] Albumin [Mass/Vol] 3.7 g/dL Normal 3.5-5.0 [facility] Comment on above: Performed By: #### L DO, CMPN #### [facility] (DEFAULT) [address] [place] [address] ALP [Catalytic activity/Vol] 45 U/L Normal 32-126 [facility] Comment on above: Performed By: #### L DO, CMPN #### [facility] (DEFAULT) [address] [place] [address] ALT [Catalytic activity/Vol] 17 U/L Normal 10-52 [facility] Comment on above: Performed By: #### L DO, CMPN #### [facility] (DEFAULT) [address] [place] [address] Anion gap [Moles/Vol] 8 mmol/L Normal 7-17 [facility] Comment on above: Performed By: #### L DO, CMPN #### [facility] (DEFAULT) [address] [place] [address] AST [Catalytic activity/Vol] 13 U/L Normal 10-39 [facility] Comment on above: Performed By: #### L DO, CMPN #### [facility] (DEFAULT) [address] [place] [address] Bilirubin [Mass/Vol] 0.5 mg/dL Normal <1.5 [facility] Comment on above: Performed By: #### L DO, CMPN #### [facility] (DEFAULT) [address] [place] [address] Calcium [Mass/Vol] 8.6 mg/dL Normal 8.6-10.5 [facility] Comment on above: Performed By: #### L DO, CMPN #### [facility] (DEFAULT) [address] [place] [address] Chloride [Moles/Vol] 110 mmol/L High 98-108 [facility] Comment on above: Performed By: #### L OLGA MONTOYAN #### [facility] (DEFAULT) [address] [place] [address] CO2 [Moles/Vol] 28 mmol/L Normal 21-31 [facility] Comment on above: Performed By: #### L , CMPN #### [facility] (DEFAULT) [address] [place] [address] Creatinine [Mass/Vol] 1.00 mg/dL Normal 0.70-1.30 [facility] Comment on above: Performed By: #### L OLGA MONTOYAN #### [facility] (DEFAULT) [address] [place] [address] GFR/1.73 sq M.predicted among non-blacks MDRD (S/P/Bld) [Vol rate/Area] 81 mL/min/{1.73_m2} Normal >=60 [facility] Comment on above: Result Comment: Repo rted eGFR is based on the CKD-EPI 2020 equation using creatinine, age, and sex. Performed By: #### L OLGA MONTOYAN #### [facility] (DEFAULT) [address] [place] [address] Glucose [Mass/Vol] 117 mg/dL High 70-99 [facility] Comment on above: Performed By: #### L , CMPN #### [facility] (DEFAULT) [address] [place] [address] Osmolality [Osmolality] 298 mosm/kg Normal 278-305 [facility] Comment on above: Performed By: #### L , CMPN #### [facility] (DEFAULT) [address] [place] [address] Potassium [Moles/Vol] 4.0 mmol/L Normal 3.5-5.0 [facility] Comment on above: Performed By: #### L DO, CMPN #### [facility] (DEFAULT) [address] [place] [address] Protein [Mass/Vol] 5.9 g/dL Low 6.4-8.3 [facility] Comment on above: Performed By: #### L DO, CMPN #### [facility] (DEFAULT) [address] [place] [address] Sodium [Moles/Vol] 142 mmol/L Normal 135-145 [facility] Comment on above: Performed By: #### L DO, CMPN #### [facility] (DEFAULT) [address] [place] [address] Urea nitrogen [Mass/Vol] 14 mg/dL Normal 7-25 [facility] Comment on above: Performed By: #### L DO, CMPN #### [facility] (DEFAULT) [address] [place] [address] Urea nitrogen/Creatinine [Mass ratio] 14 mg/mg Normal [facility] Comment on above: Performed By: #### L DO, CMPN #### [facility] (DEFAULT) [address] [place] [address] EXTRA LAVENDER TOPon 025 [facility] LACTATE DEHYDROGENASEon 08-02 Interpretation and review of laboratory results Normal [facility] LDH Lactate to pyruvate reaction [Catalytic activity/Vol] 146 U/L 100 - 190 U/L [facility] LD Total 146 U/L Normal 100-190 [facility] Comment on above: Performed By: #### L DO, CMPN #### [facility] (DEFAULT) [address] [place] [address] No Panel Informationon 08-21 [facility] Family Medicine Office/Clini c Noteon 07-20-2024 Family [...] day(s), # 14 tab(s), Refills(s) 0, Pharmacy: [facility], 185, cm, 07/20/24 14:03:00 EST, Height/Length Dosing, 103.6, kg, 07/20/24 14:03:00 EST, Weight Dosing fluticasone nasal, 1 spray(s), Nasal, BID, 16 gram, Refill(s) 0, each nostril, [facility], 185, cm, 07/20/24 14:03:00 EST, Height/Length Dosing, 103.6, kg, 07/20/24 14:03:00 EST, Weight Dosing 2. Fluid level behind tympanic membrane of both ears (H65.93: Unspecified nonsuppurative otitis media, bilateral) will send medrol dose pack Ordered: amoxicillin-clavulanate, = 1 tab(s), Oral, q12hr, X 7 day(s), # 14 tab(s), Refills(s) 0, Pharmacy: [facility], 185, cm, 07/20/24 14:03:00 EST, Height/Length Dosing, 103.6, kg, 07/20/24 14:03:00 EST, Weight Dosing fluticasone nasal, 1 spray(s), Nasal, BID, 16 gram, Refill(s) 0, each nostril, [facility] #[facility], 185, cm, 07/20/24 14:03:00 EST, Height/Length Dosing, 103.6, kg, 07/20/24 14:03:00 EST, Weight Dosing 3. Non-smoker (Z78.9: Other specified health status) continue not smoking Ordered: amoxicillin-clavulanate, = 1 tab(s), Oral, q12hr, X 7 day(s), # 14 tab(s), Refills(s) 0, Pharmacy: [facility], 185, cm, 07/20/24 14:03:00 EST, Height/Length Dosing, 103.6, kg, 07/20/24 14:03:00 EST, Weight Dosing fluticasone nasal, 1 spray(s), Nasal, BID, 16 gram, Refill(s) 0, each nostril, [facility], 185, cm, 07/20/24 14:03:00 EST, Height/Length [...] day(s), # 14 tab(s), Refills(s) 0, Pharmacy: [facility], 185, cm, 07/20/24 14:03:00 EST, Height/Length Dosing, 103.6, kg, 07/20/24 14:03:00 EST, Weight Dosing fluticasone nasal, 1 spray(s), Nasal, BID, 16 gram, Refill(s) 0, each nostril, [facility], 185, cm, 07/20/24 14:03:00 EST, Height/Length [...] day(s), # 14 tab(s), Refills(s) 0, Pharmacy: [facility], 185, cm, 07/20/24 14:03:00 EST, Height/Length Dosing, 103.6, kg, 07/20/24 14:03:00 EST, Weight Dosing fluticasone nasal, 1 spray(s), Nasal, BID, 16 gram, Refill(s) 0, each nos (more content not included)... Normal [facility] Comment on above: Result Comment: Elec tronically Signed By: Qiana Gayle\.br\Date and Time Signed: 07/20/24 14:21 EST SURG PATH REQUESTon 07-06-20 24 Addendum Normal [facility] Comment on above: Result Comment: Subs equently received on July 30, 2024 is one (1) paraffin block marked [id number] (A1) which is submitted to the [facility] for recutting and additional staining: [...] developed by and are performed at the [facility] Clinical Laboratory, Histology and IHC Lab, [address] [place] [address]. All Immunofluorescent (IF) tests were developed by and are performed at the [facility] Laboratory, Renal Division, [address] [place] [address]. All tests reported here, except for PD-L1, [...] 2:36 PM Performed By: #### L , CMPN #### [facility] (DEFAULT) [address] [place] [address] Case Report Normal [facility] Comment on above: Result Comment: Surg ical Pathology Report Case: [id number] Authorizing Provider: AL Steele Collected: 07/06/2024 08:59 AM Ordering Location: [facility] Received: 07/06/2024 08:58 AM PRABHAKAR Pathologist: Isaac Schwartz MD Specimen: SURG PATH, Right inguinal lymph node Performed By: #### L , CMPN #### [facility] (DEFAULT) [address] [address] Diagnosis Comments The patient's histor y of right arm ulcer admixed iwth CLL/SLL is noted (03/01/2024). 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 Additional immunostains might be needed to rule out EBV infections when the block is available (requested on 07/12/2024). Normal [facility] Comment on above: Performed By: #### L , OLGAN #### [facility] (DEFAULT) [address] [address] Gross Description Normal [facility] Comment on above: Result Comment: The following material(s) are received from [facility], [address] [place] [address] with an identifying Surgical Pathology Report, along with a copy of the Flow Cytometry: Hematologic Neoplasia Assessment Report, the Cytogenetic Analysis Report, the CLL FISH Panel TargetGene? Analysis Fluorescence in situ Hybridization (FISH) Report, the Summary of Results [facility], and the Surgical Pathology Consultation Report (05/17/2024) performed at [facility]: 8 H&E slide(s), 16 non-H&E slide(s) labeled [id number]. Outside pathology materials are returned in sixty (60) days under separate cover with our number recorded on them. Grosser for this case was: Ruth Hampton Performed By: #### L DO, CMPN #### [facility] (DEFAULT) [address] [address] Microscopic Description [facility] Comment on above: Result Comment: A mi [...] with the guidelines of the [employer] for the reporting of cancer specimens. *Lymphoid neoplasms are classified according to: - WHO Classification of Tumours Editorial Board. Haematolymphoid tumours. [place] (Paulina): International Agency for Research on Cancer; (WHO classification of tumours series, 5th ed.; vol. 11, 2021). https://publications.iarc.fr. - The International Consensus Classification of Mature Lymphoid Neoplasms: a report from the Clinical Advisory Committee. Blood. 2021Apr 15;140(11):1190-2634. doi: 10.1182/blood.4866430501. Erratum in: Blood. 2022Aug 26;141(4):437. PMID: 89176833; PMCID: [id number]. All controls show appropriate reactivity. Ki67 is evaluated by manual quantitative immunohistochemistry on formalin-fixed, paraffin-embedded tissue. The percentage of positive tumor cell nuclei is determined. All immunohistochemistry (IHC), in situ hybridization (LINA), and histochemical tests were developed by and are performed at the [facility], Histology and IHC Lab, [address] [place] [address]. All Immunofluorescent (IF) tests were developed by and are performed at the [facility], Renal Division, [address] [place] [address]. All tests reported here, except for PD-L1, have not been cleared by or approved by the US Food and Drug Administration (FDA). The laboratory is regulated under CLIA as qualified to perform high-complexity testing. The tests are used for clinical purposes. They should not be regarded as investigational or for research. Performed By: #### L , OLGAN #### [facility] (DEFAULT) [address] [place] [address] Pathologic Diagnosis [facility] Comment on above: Result Comment: Outs rick Slides: [id number] (04/20/24) Right inguinal lymph node, excisional biopsies: Accelerated chronic lymphocytic leukemia/small lymphocytic lymphoma (CLL/SLL), see comment and synoptic report. Performed By: #### L DO, OLGAN #### [facility] (DEFAULT) [address] [place] [address] Professional Interpretation Performed at: [facility] Comment on above: Result Comment: [facility] For Immediate Release to Patient's MyChart? Yes [address] [place] [address] Performed By: #### L DO CMPN #### [facility] (DEFAULT) [address] [place] [address] Case Report [facility] Comment on above: Result Comment: Surg ical Pathology Report Case: [id number] Authorizing Provider: AL Steele Collected: 07/06/2024 08:48 AM Ordering Location: [facility] Received: 07/06/2024 08:48 AM SARATOGA Pathologist: Isaac Schwartz MD Specimen: SURG PATH, A) Right elbow abscess core; B) Abscess core; C) Abscess core #3; D) Abscess right elbow #4 Performed By: #### L DO, CMPN #### [facility] (DEFAULT) [address] [place] [address] Diagnosis Comments The patient's histor y of [...] re-evaluation when the inflammation is controlled. Normal [facility] Comment on above: Performed By: #### L DO, CMPN #### [facility] (DEFAULT) [address] [address] Gross Description Normal [facility] Comment on above: Result Comment: The following material(s) are received from [facility], [address] [place] [address] with an identifying Surgical Pathology Report, along with a copy of the Surgical Pathology Reference Lab Consult Report performed at [facility]: 4 H&E slide(s), 9 non-H&E slide(s) labeled [id number]. Outside pathology materials are returned in sixty (60) days under separate cover with our number recorded on them. Grosser for this case was: Ruth Hampton Performed By: #### L DO, CMPN #### [facility] (DEFAULT) [address] [place] [address] Microscopic Description Normal [facility] Comment on above: Result Comment: A [...] with a predominance of small lymphoid cells. [place]/Lambda LINA shows scattered polytypic plasma cells and [...] with the guidelines of the [employer] for the reporting of cancer specimens. *Lymphoid neoplasms are classified according to: - WHO Classification of Tumours Editorial Board. Haematolymphoid tumours. [place] (Paulina): International Agency for Research on Cancer; (WHO classification of tumours series, 5th ed.; vol. 11, 2021). https://publications.iarc.fr. - The International Consensus Classification of Mature Lymphoid Neoplasms: a report from the Clinical Advisory Committee. Blood. 2021Apr 15;140(11):2369-7134. doi: 10.1182/blood.9474945383. Erratum in: Blood. 2022Aug 26;141(4):437. PMID: 86372479; PMCID: [id number]. All controls show appropriate reactivity. Ki67 is evaluated by manual quantitative immunohistochemistry on formalin-fixed, paraffin-embedded tissue. The percentage of positive tumor cell nuclei is determined. All immunohistochemistry (IHC), in situ hybridization (LINA), and histochemical tests were developed by and are performed at the [facility], Histology and IHC Lab, [address] [place] [address]. All Immunofluorescent (IF) tests were developed by and are performed at the [facility], Renal Division, [address] [place] [address]. All tests reported here, except for PD-L1, have not been cleared by or approved by the US Food and Drug Administration (FDA). The laboratory is regulated under CLIA as qualified to perform high-complexity testing. The tests are used for clinical purposes. They should not be regarded as investigational or for research. Performed By: #### L DO, CMPN #### [facility] (DEFAULT) [address] [place] [address] Pathologic Diagnosis [facility] Comment on above: Result Comment: Outs rick Slides: [id number] (03/01/24) Abscess, right elbow, biopsy: Acute and [...] Performed By: #### L DO, CMPN #### [facility] (DEFAULT) [address] [place] [address] Professional Interpretation Performed at: [facility] Comment on above: Result Comment: [facility] For Immediate Release to Patient's MyChart? Yes [address] [place] [address] Performed By: #### L DO, CMPN #### [facility] (DEFAULT) [address] [place] [address] Pathology study report docum entOrdered By: Teo Kaur on 06-15-2024 Pathology study [facility] Other Phone: 06-11-2024 L ------ Specimen: [id number] Received: 06/11/24 Status: KAEL Moreland Num: [id number] Spec Type: Cytology Subm Dr: Qiana Andre INFANT ROOM TEACHER Tissues: A FNA SLIDES ANDI (RT THYR MID LOBE) Procedures: Cyto Int and Re PAPMARIA GUADALUPE/Jessie Age/ Patient Sex Location Account Attending Physician Mily Ibrahim/Criss LABELYoung [id number] Hector Ledbetter MD SPEC NUM: [id number] RECD: 06/11/24 STATUS: KAEL MORELAND NUM: [id number] [place]: 06/11/24- SUBM DR: Qiana Andre INFANT ROOM TEACHER ENTERED: 06/11/[address] [facility] [address]: Salazar,Lab SPEC TYPE: Cytology DEPT: [facility] ENTERED BY: [id number] RECV BY: [id number] ORDERED: Cyto Int and Re, PAPSTN/5 ORDERED: Cyto Int and Re, PAPSTN/5 Pathological Diagnosis Right thyroid nodule, FNA cytology: -Quite a few follicular groups are present, satisfactory for assessment -The follicular cells generally showing uniform ovoid nuclei, and only occasional follicular cells in rare groups containing small nucleoli, and overall are consistent with the Category 2 [place] System: Benign Clinical Information Right thyroid nodule, [...] vial stored at -20 for microscopic examination. (NM/nj) Specimen: [id number] Received: 06/11/24 Status: KAEL Moreland Num: [id number] Spec Type: Cytology Subm Dr: Qiana Andre INFANT ROOM TEACHER Tissues: A FNA SLIDES NOPATH (RT THYR MID LOBE) Procedures: Cyto Int and Re, PAPSTN/5 Patient: Mily Ibrahim [id number] (Continued) Specimen: [id number] Received: 06/11/24 (Continued) Signed (signature on file) Teo Kaur MD 06/15/24 1533 Specimen: [id number] Received: 06/11/24 Status: KAEL Moreland Num: [id number] Spec Type: Cytology Subm Dr: Qiana Andre INFANT ROOM TEACHER Tissues: A FNA SLIDES NOPATH (RT THYR MID LOBE) Procedures: Cyto Int and Re, PAPSTN/5 Patient: Mily Ibrahim [id number] (Continued) Specimen: [id number] Received: 06/11/24 (Continued) Microscopic Description Microscopic examinations are performed supporting the above interpretation CPT Codes 00440 Specimen: [id number] Received: 06/11/24 Status: KAEL Moreland Num: [id number] Spec Type: Cytology Subm Dr: Qiana Andre INFANT ROOM TEACHER Tissues: A FNA SLIDES NOPATH (RT THYR MID LOBE) Procedures: Cyto Int and Re, PAPSTN/5 Patient: Mily Ibrahim [id number] (Continued) Signed (signature on file) Koffi-Gavin Kaur MD 06/15/24 1533 Normal [facility] IGVH MUTATION ANALYSIS (SOMA TIC HYPERMUTATION), BLOOD, DATA ENTRYOrdered By: Adam Parker on 06-08-2024 [facility] IGVH MUTATION ANALYSIS, REESE LOrdered By: Swapnil Hammonds on 06-08-2024 % Divergence 0.3 [facility] Work Phone: IGH PCR Pattern Biallelic/biclonal [facility] Work Phone: IGVH Interpretation 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 In CLL, cases with unmutated IGVH are associated with unfavorable prognosis and shorter gwix-hv-rywkgiblo. Correlate with other prognostic markers for full risk stratification. Run and sample controls meet acceptable criteria. [facility] Work Phone: IGVH segment 1(69), 3(23) [facility] Work Phone: Method/Limitations: Method: RNA is extra cted from leukocytes, reverse transcribed, and the variable (V) region of the IGH transcripts amplified by polymerase chain reaction (PCR) to assess the presence or absence of a B-cell clonal rearrangement using two different consensus PCR reactions. One or both PCR products are then sequenced by the [place] method and compared to consensus IGVH segments using the [place] Egg-IGBLAST sequence library. Greater than or equal to [...] by the [facility] of the [facility] under the medical direction of Isaac Schwartz MD, PhD. It has not been cleared or approved by the U.S. Food and Drug Administrations. Since FDA (U.S. Food and Drug Administration) approval is not required for clinical use of this test, this laboratory has established and validated the test's accuracy and precision, pursuant to the requirement of CLIA '88. [facility] Work Phone: Mutation Status Unmutated [facility] Work Phone: Reviewed by Swapnil Hammonds MD, PhD [facility] Work Phone: [facility] Work Phone: BETA 2 MICROGLOBULIN SERUMOr dered By: Hanh Gibbs on 05-30-2024 Diox-1-Tpwfoycdwuers [Mass/Vol] 2.63 ug/mL High 0.80 - 2.34 mg/L [facility] Interpretation and review of laboratory results Abnormal [facility] IGVH MUTATION ANALYSISOrdere d By: Medhat Carrasquillo on 05-30-2024 Receiving Status Accessioned in Lab [facility] RNA EXTRACTIONOrdered By: Rupal Velasquez on 05-30-2024 [facility] BETA 2 MICROGLOBULIN SERUMon 05-29-2024 Beta 2 Microglobulin 2.63 mg/L High 0.80-2.34 [facility] Comment on above: Performed By: #### B 2M #### [facility] (DEFAULT) [address] [place] [address] CBC AND ELECTRONIC DIFFon Basophils (Bld) [#/Vol] K/uL 0.00 - 0.09 K/uL [facility] Basophils/100 WBC (Bld) 0.2 % [facility] Differential cell count method Nom (Bld) Electronic Differential O [facility] Eosinophils (Bld) [#/Vol] K/uL 0.00 - 0.48 K/uL [facility] Eosinophils/100 WBC (Bld) 0.1 % [facility] Erythrocyte distribution width (RBC) [Ratio] 13.3 % 10.9 - 14.3 % [facility] Hematocrit (Bld) [Volume fraction] 43.6 % 39.6 - 48.8 % [facility] Hemoglobin (Bld) [Mass/Vol] 15.0 g/dL 13.4 - 16.8 g/dL [facility] Immature granulocytes (Bld) [#/Vol] 0.06 10*3/uL NINF - 0.07 K/uL [facility] Immature granulocytes/100 WBC (Bld) 0.7 % [facility] Lymphocytes (Bld) [#/Vol] 2.67 10*3/uL 0.83 - 3.57 K/uL [facility] Lymphocytes/100 WBC (Bld) 31.2 % [facility] MCH (RBC) [Entitic mass] 30.1 pg 26.1 - 33.3 pg [facility] MCHC (RBC) [Mass/Vol] 34.4 g/dL 31.9 - 36.5 g/dL [facility] MCV (RBC) [Entitic vol] 87.4 fL 79.0 - 94.5 fL [facility] Monocytes (Bld) [#/Vol] 0.57 10*3/uL 0.24 - 0.93 K/uL [facility] Monocytes/100 WBC (Bld) 6.7 % [facility] Neutrophils (Bld) [#/Vol] 5.24 10*3/uL 1.57 - 6.19 K/uL [facility] Nucleated RBC/100 WBC (Bld) [Ratio] 0.0 % [facility] Platelet mean volume (Bld) [Entitic vol] 8.9 fL 8.7 - 12.3 fL [facility] Platelets (Bld) [#/Vol] 153 10*3/uL 146 - 337 K/uL [facility] RBC (Bld) [#/Vol] 4.99 10*6/uL [facility] Segmented neutrophils/100 WBC (Bld) 61.1 % [facility] WBC (Bld) [#/Vol] 8.57 10*3/uL 3.73 - 10.10 K/uL [facility] Abs Baso Auto < Normal 0.00-0.09 [facility] Comment on above: Performed By: #### L [id number] #### [facility] (DEFAULT) [address] [address] Abs Eos Auto < Normal 0.00-0.48 [facility] Comment on above: Performed By: #### L [id number] #### [facility] (DEFAULT) [address] [address] Basophils/100 WBC (Bld) 0.2 % Normal [facility] Comment on above: Performed By: #### L [id number] #### [facility] (DEFAULT) [address] [address] DIFF STATUS Electronic Differential Normal [facility] Comment on above: Performed By: #### L [id number] #### [facility] (DEFAULT) [address] [address] Eosinophils/100 WBC (Bld) 0.1 % Normal [facility] Comment on above: Performed By: #### L [id number] #### [facility] (DEFAULT) [address] [address] Hematocrit (Bld) [Volume fraction] 43.6 % Normal 39.6-48.8 [facility] Comment on above: Performed By: #### L [id number] #### [facility] (DEFAULT) [address] [address] Hemoglobin (Bld) [Mass/Vol] 15.0 g/dL Normal 13.4-16.8 [facility] Comment on above: Performed By: #### L [id number] #### [facility] (DEFAULT) [address] [address] Immature Grans % 0.7 % Normal [facility] Comment on above: Performed By: #### L [id number] #### [facility] (DEFAULT) [address] [address] Immature Grans Absolute 0.06 K/uL Normal <=0.07 [facility] Comment on above: Performed By: #### L [id number] #### [facility] (DEFAULT) [address] [address] Lymphocytes (Bld) [#/Vol] 2.67 10*3/uL Normal 0.83-3.57 [facility] Comment on above: Performed By: #### L [id number] #### [facility] (DEFAULT) [address] [address] Lymphocytes/100 WBC (Bld) 31.2 % Normal [facility] Comment on above: Performed By: #### L [id number] #### [facility] (DEFAULT) [address] [address] MCV (RBC) [Entitic vol] 87.4 fL Normal 79.0-94.5 [facility] Comment on above: Performed By: #### L [id number] #### [facility] (DEFAULT) [address] [address] Mean Cell Hgb 30.1 pg Normal 26.1-33.3 [facility] Comment on above: Performed By: #### L [id number] #### [facility] (DEFAULT) [address] [address] Mean Cell Hgb Conc 34.4 g/dL Normal 31.9-36.5 [facility] Comment on above: Performed By: #### L [id number] #### [facility] (DEFAULT) [address] [place] [address] Monocytes (Bld) [#/Vol] 0.57 10*3/uL Normal 0.24-0.93 [facility] Comment on above: Performed By: #### L [id number] #### [facility] (DEFAULT) [address] [place] [address] Monocytes/100 WBC (Bld) 6.7 % Normal [facility] Comment on above: Performed By: #### L [id number] #### [facility] (DEFAULT) [address] [place] [address] Nucleated RBC 0.0 /100 WBC Normal <=0.2 [facility] Comment on above: Performed By: #### L [id number] #### [facility] (DEFAULT) [address] [place] [address] Platelet mean volume (Bld) [Entitic vol] 8.9 fL Normal 8.7-12.3 [facility] Comment on above: Performed By: #### L [id number] #### [facility] (DEFAULT) [address] [place] [address] Platelets (Bld) [#/Vol] 153 10*3/uL Normal 146-337 [facility] Comment on above: Performed By: #### L [id number] #### [facility] (DEFAULT) [address] [place] [address] RBC (Bld) [#/Vol] 4.99 10*6/uL Normal 4.38-5.83 [facility] Comment on above: Performed By: #### L [id number] #### [facility] (DEFAULT) [address] [place] [address] RBC Distribution 13.3 % Normal 10.9-14.3 [facility] Comment on above: Performed By: #### L [id number] #### [facility] (DEFAULT) [address] [place] [address] Segs + Bands Auto 61.1 % Normal [facility] Comment on above: Performed By: #### L [id number] #### [facility] (DEFAULT) [address] [place] [address] Segs + Bands,Absolute Auto 5.24 K/uL Normal 1.57-6.19 [facility] Comment on above: Performed By: #### L [id number] #### [facility] (DEFAULT) [address] [place] [address] WBC (Bld) [#/Vol] 8.57 10*3/uL Normal 3.73-10.10 [facility] Comment on above: Performed By: #### L [id number] #### [facility] (DEFAULT) [address] [place] [address] COMPREHENSIVE METABOLIC PANE Andrea 05-29-2024 Albumin [Mass/Vol] 4.1 g/dL 3.5 - 5.0 g/dL [facility] ALP [Catalytic activity/Vol] 42 U/L 32 - 126 U/L [facility] ALT [Catalytic activity/Vol] 15 U/L 10 - 52 U/L [facility] Anion gap [Moles/Vol] 9 mmol/L 7 - 17 mmol/L [facility] AST [Catalytic activity/Vol] 14 U/L 10 - 39 U/L [facility] Bilirubin [Mass/Vol] 0.6 mg/dL NINF - 1.5 mg/dL [facility] Calcium [Mass/Vol] 8.8 mg/dL 8.6 - 10. 5 mg/dL [facility] Chloride [Moles/Vol] 107 mmol/L 98 - 10 8 mmol/L [facility] CO2 [Moles/Vol] 28 mmol/L 21 - 31 mmol/L [facility] Creatinine [Mass/Vol] 0.93 mg/dL 0.70 - 1.30 mg/dL [facility] eGFR, CKD-EPI, Male 88 - PINF [facility] Comment on above: Reported eGFR is bas ed on the CKD-EPI 2020 equation using creatinine, age, and sex. Glucose [Mass/Vol] 101 mg/dL High 70 - 99 mg/dL [facility] Interpretation and review of laboratory results Abnormal [facility] Osmolality Calc [Osmolality] 293 [facility] Potassium [Moles/Vol] 4.2 mmol/L 3.5 - 5.0 mmol/L [facility] Protein [Mass/Vol] 6.4 g/dL 6.4 - 8.3 g/dL [facility] Sodium [Moles/Vol] 140 mmol/L 135 - 145 mmol/L [facility] Urea nitrogen [Mass/Vol] 13 mg/dL 7 - 25 mg/dL [facility] Urea nitrogen/Creatinine [Mass ratio] 14 mg/mg [facility] Albumin [Mass/Vol] 4.1 g/dL Normal 3.5-5.0 [facility] Comment on above: Performed By: #### L DO CMPN #### [facility] (DEFAULT) [address] [address] ALP [Catalytic activity/Vol] 42 U/L Normal 32-126 [facility] Comment on above: Performed By: #### L DO CMPN #### [facility] (DEFAULT) [address] [address] ALT [Catalytic activity/Vol] 15 U/L Normal 10-52 [facility] Comment on above: Performed By: #### L DO CMPN #### [facility] (DEFAULT) [address] [place] [address] Anion gap [Moles/Vol] 9 mmol/L Normal 7-17 [facility] Comment on above: Performed By: #### L DO CMPN #### [facility] (DEFAULT) [address] [place] [address] AST [Catalytic activity/Vol] 14 U/L Normal 10-39 [facility] Comment on above: Performed By: #### L DO CMPN #### [facility] (DEFAULT) [address] [place] [address] Bilirubin [Mass/Vol] 0.6 mg/dL Normal <1.5 [facility] Comment on above: Performed By: #### L DO, CMPN #### [facility] (DEFAULT) [address] [place] [address] Calcium [Mass/Vol] 8.8 mg/dL Normal 8.6-10.5 [facility] Comment on above: Performed By: #### L DO, CMPN #### [facility] (DEFAULT) [address] [place] [address] Chloride [Moles/Vol] 107 mmol/L Normal 98-108 [facility] Comment on above: Performed By: #### L DO, CMPN #### [facility] (DEFAULT) [address] [place] [address] CO2 [Moles/Vol] 28 mmol/L Normal 21-31 [facility] Comment on above: Performed By: #### L DO, CMPN #### [facility] (DEFAULT) [address] [place] [address] Creatinine [Mass/Vol] 0.93 mg/dL Normal 0.70-1.30 [facility] Comment on above: Performed By: #### L DO, CMPN #### [facility] (DEFAULT) [address] [place] [address] GFR/1.73 sq M.predicted among non-blacks MDRD (S/P/Bld) [Vol rate/Area] 88 mL/min/{1.73_m2} Normal >=60 [facility] Comment on above: Result Comment: Repo rted eGFR is based on the CKD-EPI 2020 equation using creatinine, age, and sex. Performed By: #### L DO, CMPN #### [facility] (DEFAULT) [address] [place] [address] Glucose [Mass/Vol] 101 mg/dL High 70-99 [facility] Comment on above: Performed By: #### L DO, CMPN #### [facility] (DEFAULT) [address] [place] [address] Osmolality [Osmolality] 293 mosm/kg Normal 278-305 [facility] Comment on above: Performed By: #### L DO, CMPN #### [facility] (DEFAULT) [address] [place] [address] Potassium [Moles/Vol] 4.2 mmol/L Normal 3.5-5.0 [facility] Comment on above: Performed By: #### L DO, CMPN #### [facility] (DEFAULT) [address] [place] [address] Protein [Mass/Vol] 6.4 g/dL Normal 6.4-8.3 [facility] Comment on above: Performed By: #### L DO, CMPN #### [facility] (DEFAULT) [address] [place] [address] Sodium [Moles/Vol] 140 mmol/L Normal 135-145 [facility] Comment on above: Performed By: #### L DO, CMPN #### [facility] (DEFAULT) [address] [place] [address] Urea nitrogen [Mass/Vol] 13 mg/dL Normal 7-25 [facility] Comment on above: Performed By: #### L DO, CMPN #### [facility] (DEFAULT) [address] [place] [address] Urea nitrogen/Creatinine [Mass ratio] 14 mg/mg Normal [facility] Comment on above: Performed By: #### L DO, CMPN #### [facility] (DEFAULT) [address] [place] [address] CYTOGENETIC STUDIES (PERFORM ABLE)on 05-29-2024 Band Level 425 Normal [facility] Comment on above: Order Comment: Alejandra stallworth do not use this order for add-ons Place sample for CYTOGENETICS in Sodium (NA) heparin tube. Please do not use this order for add-ons Place sample for CYTOGENETICS in Sodium (NA) heparin tube. Performed By: #### BRETT [id number] #### [place] [facility] (DEFAULT) [address] [address] Culture Method: Normal [facility] Comment on above: Order Comment: [...] #### BRETT [id number] #### [place] [facility] (DEFAULT) [address] [place] [address] Interpretation Normal [facility] Comment on above: Order Comment: Alejandra do not use this order for add-ons [...] leukaemia (CLL): the CLL Research Consortium experience. [place] Journal of Haematology 2016;173:105-113. Due to the limitations of this analysis, these results do not rule out the presence of subtle chromosomal abnormalities or additional abnormalities that could exist in a low proportion of cells. Performed By: #### BRETT [id number] #### [place] (DEFAULT) [address] [address] Karyotype 47,XY,+12[cp21] Normal [facility] Comment on above: Order Comment: Alejandra stallworth do not use this order for add-ons Place sample for CYTOGENETICS in Sodium (NA) heparin tube. Please do not use this order for add-ons Place sample for CYTOGENETICS in Sodium (NA) heparin tube. Performed By: #### C DIANE [id number] #### [facility] (DEFAULT) [address] [place] [address] FISH STUDIESon 05-29-2024 Clinical History Chronic Lymphocytic Leukemia Normal [facility] Comment on above: Order Comment: Alejandra stallworth do not use this order for add-ons Place sample for CYTOGENETICS in Sodium (NA) heparin tube. Please do not use this order for add-ons Place sample for CYTOGENETICS in Sodium (NA) heparin tube. Performed By: #### C DIANE [id number] #### [place] [facility] (DEFAULT) [address] [place] [address] Culture Method Normal [facility] Comment on above: Order Comment: Alejandra stallworth [...] - specific Meta[employer]s D12Z3 200 centromere MetaSystems A91R308 200 locus - specific MetaSystems TP53 202 [...] determined by the Cytogenetics Lab at [facility]. It has not been cleared or approved by the FDA. The laboratory is regulated under CLIA as qualified to perform high-complexity testing. This test is used for clinical purposes. It should not be regarded as investigational or for research. Pursuant to the requirements of CLIA'88, this laboratory has established and verified the test's accuracy and precision. Performed By: #### C DIANE [id number] #### [place] [facility] (DEFAULT) [address] [address] FISH Interpretation Normal [facility] Comment on above: Order Comment: Alejandra stallworth [...] leukaemia (CLL): the CLL Research Consortium experience. [place] Journal of Haematology 2016;173:105-113. Performed By: #### C DIANE [id number] #### [facility] (DEFAULT) [address] [address] FISH Report Normal [facility] Comment on above: Order Comment: Alejandra stallworth do not use this order for add-ons Place sample for CYTOGENETICS in Sodium (NA) heparin tube. Please do not use this order for add-ons Place sample for CYTOGENETICS in Sodium (NA) heparin tube. Result Comment: CLL Results Probe Interpretation Patient% Signal/Mcbain 8q24.2 (MYC) negative 0 3 signals/ 2.3% 9p21 (CDKN2A) negative 0.5 1 signal/ 5.5% 11q22.3 (GIO) negative 1.0 1 signal/ 4.2% 12p11.1-q11 (D12Z3) POSITIVE FOR 3 SIGNALS 53.2 3 signals/ 0.6% 13q14.3 (I81F100) negative 0 1 signal/ 4.9% 17p13.1 (TP53) negative 0 1 signal/ 5.4% FISH Results Probe Interpretation Patient% Signal/Mcbain Range 14q32.3-11q13.3 (IGH-CCND1) negative 0 dual fusion/ 0.6% nuc lina(MYCx2)[200],(CDKN2A,D9Z4)x2[200],(CCND1,IGH)x2[200],(GIO,TP 53)x2[200],(J27C4o1,L14Y577l7)[107/201] Performed By: #### C DIANE [id number] #### [facility] (DEFAULT) [address] [address] Specimen Received Peripheral Blood obt ained 05/29/24 Normal [facility] Comment on above: Order Comment: Alejandra stallworth do not use this order for add-ons Place sample for CYTOGENETICS in Sodium (NA) heparin tube. Please do not use this order for add-ons Place sample for CYTOGENETICS in Sodium (NA) heparin tube. Performed By: #### BRETT [id number] #### [facility] (DEFAULT) [address] [place] [address] IGVH MUTATION ANALYSISon Receiving Status Accessioned in Lab Normal [facility] Comment on above: Performed By: #### L , CMPN #### [facility] (DEFAULT) [address] [address] IMMUNOGLOBULINS IGG IGA IGMo n 05-29-2024 IgA [Mass/Vol] 96 mg/dL 90 - 410 mg/dL [facility] IgG [Mass/Vol] 877 mg/dL 600 - 1560 mg/dL [facility] IgM [Mass/Vol] 125 mg/dL 30 - 360 mg/dL [facility] Interpretation and review of laboratory results Normal [facility] IgA [Mass/Vol] 96 mg/dL Normal 90-410 [facility] Comment on above: Performed By: #### Q IMM #### [facility] (DEFAULT) [address] [place] [address] IgG [Mass/Vol] 877 mg/dL Normal 600-1560 [facility] Comment on above: Performed By: #### Q IMM #### [facility] (DEFAULT) [address] [place] [address] IgM [Mass/Vol] 125 mg/dL Normal 30-360 [facility] Comment on above: Performed By: #### Q IMM #### [facility] (DEFAULT) [address] [place] [address] LACTATE DEHYDROGENASEon 05-02 Interpretation and review of laboratory results Normal [facility] LDH Lactate to pyruvate reaction [Catalytic activity/Vol] 144 U/L 100 - 190 U/L [facility] LD Total 144 U/L Normal 100-190 [facility] Comment on above: Performed By: #### L DO, CMPN #### [facility] (DEFAULT) [address] [place] [address] No Panel Informationon 05-29 [facility] Surgical pathology studyon 1 Surgical pathology study Pathology report.total SEE COMMENT Surgical Pathology Report Case: [id number] Authorizing Provider: Collected: 05/17/2024 [facility] Ordering Location: [facility] Received: 05/17/2024 [facility] Pathologist: Lupe Valdovinos MD Specimen: OUTSIDE [...] Ki67: increased proliferation (40%) FLOW CYTOMETRY INTERPRETATION ([id number]) Abnormal / monotypic CD5 positive B-cell population [...] CD56, CD57, [facility]-7 CYTOGENETIC / MOLECULAR STUDIES ([id number]): Insufficient metaphases available for chromosome analysis. No results. See separate report for details. FISH REPORT ([id number]): Fluorescence in situ hybridization (FISH) analysis was [...] of the disease. See flow cytometry report [id number] for further information. See cytogenetic report [id number] for further information. The following FISH analysis on CLL FISH panel was performed on this patient specimen: Probe Detection parameters Result ISCN Centromere 12 Detects a Trisomy 12 Detected nuc lina (N71M0g8)[80/200] 13q14(DLEU1) Detects a deletion of 13 q [...] conjunction with patho (more content not included)... [facility] Ambulatory Visit Summaryon 0 04-24-2024 Ambulatory Visit Summary Ambulatory Visit Summary LULAMILY ALMENDAREZ Henna :1955 Visit Date:04/24/2024 Ambulatory Visit Instructions [...] a rect (more content not included)... Normal [facility] Urology Office/Clinic Noteon 04-24-2024 Urology Office/Clinic [...] with voice recognition artificial intelligence software, specifically I AND [employer] and or [employer]. Substitutions may have occurred due to the [...] -Obtain inguinal lymph node biopsy results from [facility] Ordered: Body Mass Index (BMI) documented 3008F [...] for refills. -Continue tamsulosin and finasteride Ordered: 07929 Measure Post Void residual urine and/or bladder capacity by US- non-imaging Body Mass Index (BMI) documented 3008F Current tobacco non-user 1036F Depression Screening Negative 3352F Influenza immunization status assessed 1030F Medication list documented in medical record 1159F Most recent diastolic blood pressure (more content not included)... Normal [facility] Comment on above: Result Comment: Elec tronically Signed By: MERRY Fisher APRN, [place] X\.hector\Date and Time Signed: 04/24/24 08:58 EDT Andrea 04-20-2024 L ------ Specimen: [id number] Received: 04/20/24-1041 Status: KAEL Moreland Num: [id number] Spec Type: Surgical Subm Dr: Jered Leon MD Tissues: A Lymph Node - Biopsy (Needle or Incisional) (R INGUINAL LYMPH NODE) Procedures: HE/8, Gross/Micro L4, BCL-2, BCL-6, CD10, CD138, CD20, CD21, CD23, CD3, CD30, CD43, CD5, CD56, CD68, CYCLIN D1, Ki-67, PAX5 Comments: LYMPHOMA WORKUP PER DR LEON Age/ Patient Sex Location Account Attending Physician Mily Ibrahim 68/M [place] [id number] Jered Leon MD SPEC NUM: [id number] RECD: 04/20/24 STATUS: KAEL MOREALND NUM: [id number] [place]: 04/20/[address] [facility] [address]: Jered Leon MD ENTERED: 04/20/[address] [facility] [address]: MORENA TYPE: Surgical DEPT: S ENTERED BY: [id number] RECV BY: [id number] ORDERED: HE/8, Gross/Micro L4, BCL-2, BCL-6, CD10, [...] for findings of consultation report from the [facility], Department of anatomic pathology -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), see comment and synoptic report: Addendum Signed (signature on file) Teo Kaur MD 08/07/24 9189 Specimen: [id number] Received: 04/20/24 Status: KAEL Moreland Num: [id number] Spec Type: Surgical Subm Dr: Jered Leon MD Tissues: A Lymph Node - Biopsy (Needle or Incisional) (R INGUINAL LYMPH NODE) Procedures: HE/8, Gross/Micro L4, BCL-2, BCL-6, CD10, CD138, CD20, CD21, CD23, CD3, CD30, CD43, CD5, CD56, CD68, CYCLIN D1, Ki-67, PAX5 Comments: LYMPHOMA WORKUP PER DR LEON Patient: Mily Ibrahim [id number] (Continued) Specimen: [id number] Received: 04/20/24 (Continued) Supplemental Report (Continued) Signed (signature on file) Teo Kaur MD 04/26/24 1803 Specimen: [id number] Received: 04/20/24 Status: KAEL Moreland Num: [id number] Spec Type: Surgical Subm Dr: Jered Leon MD Tissues: A Lymph Node - Biopsy (Needle or Incisional) (R INGUINAL LYMPH NODE) Procedures: HE/8, Gross/Micro L4, BCL-2, BCL-6, CD10, CD138, CD20, CD21, CD23, CD3, CD30, CD43, CD5, CD56, CD68, CYCLIN D1, Ki-67, PAX5 Comments: LYMPHOMA WORKUP PER DR LEON Patient: Mily Ibrahim [id number] (Continued) Specimen: [id number] Received: 04/20/24 (Continued) Supplemental Report (Continued) Addendum 4 Entered: 05/22/24 Supplemental for findings of consultation report from [facility] laboratory services in [facility] -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), see note Addendum Signed (signature on file)Ivan_Torei Kaur MD 05/22/24909 Addendum 3 Entered: 05/08/24140 Supplemental for findings of summary of results report from [facility] -Please also see the findings of all 3 previous supplementals already attached Addendum Signed (signature on file)Darius Kaur MD 05/08/24 140 Addendum 2 Entered: 05/03/24 #1, Supplemental for findings of cytogenetic analysis report from [facility] RESULT: -Insufficient metaphases available for chromosome analysis -No results #2, Supplemental for findings of FISH report from [facility] TargetGene analysis Specimen: [id number] Received: 04/20 (more content not included)... Normal [facility] GLUCOSE POCT GLUCOMETERSon 0 04-06-2024 Glucose [Mass/Vol] 101 mg/dL [facility] Comment on above: Random Glucose Refer ence Range is dependent on time and content of last meal. Glucose of more than 200 mg/dL in a nonstressed, ambulatory subject supports the diagnosis of Diabetes Mellitus. [facility] Capillary blood glucose abraham urement by glucometer (mass/volume)Ordered By: Maria Ines Hanley on 04-04-2024 Glucose [Mass/Vol] 101 mg/dL Normal [facility] Comment on above: Random Glucose Refer ence Range is dependent on time and content of last meal. Glucose of more than 200 mg/dL in a nonstressed, ambulatory subject supports the diagnosis of Diabetes Mellitus. Result Comment: [facility] Glucose Reference Range is dependent on time and content of last meal. Glucose of more than 200 mg/dL in a nonstressed, ambulatory subject supports the diagnosis of Diabetes Mellitus. PERFORMED BY: [place] [address] PATHOLOGIST MEAT CARVER WILLI VILLEDA M.D. Performed By: #### C UBLD #### [address] Glucose Glucometer (dC) [M ass/Vol]Ordered By: Maria Ines Hanley on 04-04-2024 Glucose [Mass/Vol] Capillary blood gluc ose measurement by glucometer (mass/volume) [facility] Comment on above: Random Glucose Refer ence Range is dependent on time and content of last meal. Glucose of more than 200 mg/dL in a nonstressed, ambulatory subject supports the diagnosis of Diabetes Mellitus. PET tumor init tx strat wbon 04-04-2024 PET tumor init tx strat wb [facility] [place] [address] [place] [address] Nuclear Medicine Report Signed Patient: Mily Ibrahim MR#: [id number] : 1955 Acct:[id number] Age/Sex: 68 / M ADM Date: 04/04/24 Loc: XT Room: Type: [facility] Attending Dr: Maria Ines Hanley [...] recommended. Impression dictated by: Price Barker Jr., D.O.04/04/2024 1:48 PM Dictation Location: [place] [address] Transcribed By: [facility] 04/04/24 1348 Dictated By: Price Barker Jr, DO 04/04/24 1336 Signed By: 04/04/24 1348 Normal [facility] Alanine aminotransferase [En zymatic activity/volume] in Serum or PlasmaOrdered By: Maria Ines Hanley on 03-29-2024 ALT [Catalytic activity/Vol] 16 U/L Normal [facility] Comment on above: Performed By: #### S PE, IMM RICKEY, KAPPA, B2-MICRO #### [facility] , #### LDH, CMP, CBC, HAPT #### [facility] [address] ALT [Catalytic activity/Vol] Alanine aminotransferase [Enzymatic activity/volume] in Serum or Plasma [facility] Albumin [Mass/volume] in Ser um or PlasmaOrdered By: Maria Ines Hanley on 03-29-2024 Albumin [Mass/Vol] 3.5 g/dL Normal 2.9-4.4 [facility] Comment on above: Performed By: #### V ANCP #### [address] Albumin [Mass/volume] in Ser um or Plasma by Bromocresol green (BCG) dye binding methoOrdered By: Maria Ines Hanley on 03-29-2024 Albumin BCG dye [Mass/Vol] 4.0 g/dL 3.5-5.7 [facility] Albumin BCG dye [Mass/Vol] Albumin [Mass/volume] in Serum or Plasma by Bromocresol green (BCG) dye binding metho 3.5-5.7 [facility] Alkaline phosphatase [Enzyma tic activity/volume] in Serum or PlasmaOrdered By: Maria Ines Hanley on 03-29-2024 ALP [Catalytic activity/Vol] 46 U/L Normal 34-104 [facility] Comment on above: Performed By: #### S PE, IMM RICKEY, KAPPA, B2-MICRO #### [facility] , #### LDH, CMP, CBC, HAPT #### [address] ALP [Catalytic activity/Vol] Alkaline phosphatase [Enzymatic activity/volume] in Serum or Plasma 34 [facility] Aspartate aminotransferase [ Enzymatic activity/volume] in Serum or PlasmaOrdered By: Maria Ines Hanley on 03-29-2024 AST [Catalytic activity/Vol] 15 U/L Normal 13-39 [facility] Comment on above: Performed By: #### S PE, IMM RICKEY, KAPPA, B2-MICRO #### [facility] , #### LDH, CMP, CBC, HAPT #### [address] AST [Catalytic activity/Vol] Aspartate aminotransferase [Enzymatic activity/volume] in Serum or Plasma 13-39 [facility] Automated basophil %Ordered By: Maria Ines Hanley on 03-29-2024 Basophils/100 WBC (Bld) 0.4 % Normal . [facility] Comment on above: Performed By: #### S PE, IMM RICKEY, KAPPA, B2-MICRO #### [facility] , #### LDH, CMP, CBC, HAPT #### [address] Automated basophil countOrde red By: Maria Ines Monroese on 03-29-2024 Basophils (Bld) [#/Vol] 0.0 10*3/uL Normal 0.0-0.2 [facility] Comment on above: Result Comment: PERF ORMED BY: [place] [address] PATHOLOGIST MEAT CARVER WILLI VILLEDA M.D. Performed By: #### S PE, IMM RICKEY, KAPPA, B2-MICRO #### [facility] , #### LDH, CMP, CBC, HAPT #### [address] Automated blood monocyte cou ntOrdered By: Maria Ines Monroese on 03-29-2024 Monocytes (Bld) [#/Vol] 0.5 10*3/uL Normal 0.0-0.8 [facility] Comment on above: Performed By: #### S PE, IMM RICKEY, KAPPA, B2-MICRO #### [facility] , #### LDH, CMP, CBC, HAPT #### [address] Automated eosinophil %Ordere d By: Maria Ines Monroese on 03-29-2024 Eosinophils/100 WBC (Bld) 1.1 % Normal . [facility] Comment on above: Performed By: #### S PE, IMM RICKEY, KAPPA, B2-MICRO #### [facility] , #### LDH, CMP, CBC, HAPT #### [facility] [address] Automated eosinophil countOr dered By: Maria Ines Hanley on 03-29-2024 Eosinophils (Bld) [#/Vol] 0.1 10*3/uL Normal 0.0-0.45 [facility] Comment on above: Performed By: #### S PE, IMM RICKEY, KAPPA, B2-MICRO #### [facility] , #### LDH, CMP, CBC, HAPT #### [address] Automated monocyte %Ordered By: Maria Ines Hanley on 03-29-2024 Monocytes/100 WBC (Bld) 5.9 % Normal . [facility] Comment on above: Performed By: #### S PE, IMM RICKEY, KAPPA, B2-MICRO #### [facility] , #### LDH, CMP, CBC, HAPT #### [address] Automated neutrophil %Ordere d By: Maria Ines Hanley on 03-29-2024 Neutrophils/100 WBC (Bld) 61.7 % Normal . [facility] Comment on above: Performed By: #### S PE, IMM RICKEY, KAPPA, B2-MICRO #### [facility] , #### LDH, CMP, CBC, HAPT #### [address] Basophils Auto (Bld) [#/Vol] Ordered By: Maria Ines Hanley on 03-29-2024 Basophils (Bld) [#/Vol] Automated basophil count 0.0-0.2 [facility] Basophils/100 WBC Auto (Bld) Ordered By: Maria Ines Hanley on 03-29-2024 Basophils/100 WBC (Bld) Automated basophil % . [facility] Beta 2 Microglobulin, Serumo n 03-29-2024 Beta 2 Microglobulin, Serum 2.2 mg/L Normal 0.6-2.4 [facility] Comment on above: Result Comment: [employer] 2000 Immunochemiluminometric assay (ICMA) Values obtained with different assay methods or kits cannot be used interchangeably. Results cannot be interpreted as absolute evidence of the presence or absence of malignant disease. Performed at: - [facility], [place], [place] [id number] Veterinary Science Teacher: Sohan Broderick MD, Phone: [phone] Performed By: #### V ANCP #### [facility] [address] [place] [id number] [facility] Bilirubin.total [Mass/volume ] in Serum or PlasmaOrdered By: Maria Ines Hanley on 03-29-2024 Bilirubin [Mass/Vol] 0.5 mg/dL Normal 0.3-1.0 [facility] Comment on above: Performed By: #### S PE, IMM RICKEY, KAPPA, B2-MICRO #### [facility] , #### LDH, CMP, CBC, HAPT #### [facility] [address] [place] [id number] [facility] Bilirubin [Mass/Vol] Bilirubin.total [Mass/volume] in Serum or Plasma 0.3-1.0 [facility] CBC W Auto Differential pane l (Bld)on 03-29-2024 Basophils (Bld) [#/Vol] 0.0 10*3/uL 0.0 - 0.2 10*3/uL [facility] Basophils/100 WBC Manual cnt (Syn fld) 0.4 % . [facility] Eosinophils (Bld) [#/Vol] 0.1 10*3/uL 0.0 - 0.45 10*3/uL [facility] Eosinophils/100 WBC Manual cnt (Syn fld) 1.1 % . [facility] Erythrocyte distribution width (RBC) [Ratio] 14.2 % 12.0 - 14.8 % [facility] Hematocrit (Bld) [Volume fraction] 42.0 % 38.8 - 50.0 % [facility] Hemoglobin (Bld) [Mass/Vol] 14.3 g/dL 13.0 - 17.0 g/dL [facility] Lymphocytes (Bld) [#/Vol] 2.6 10*3/uL 1.00 - 4.8 10*3/uL [facility] Lymphocytes/100 WBC Manual cnt (Syn fld) 30.9 % . [facility] MCH (RBC) [Entitic mass] 30.3 pg 27.5 - 35.2 pg [facility] MCHC (RBC) [Mass/Vol] 34.0 g/dL 32.5 - 35.6 g/dL [facility] MCV (RBC) [Entitic vol] 89.0 fL 83.5 - 101 fL [facility] Monocytes (Bld) [#/Vol] 0.5 10*3/uL 0.0 - 0.8 10*3/uL [facility] Monocytes+Macrophages/ 100 WBC Manual cnt (Syn fld) 5.9 % . [facility] Neutrophils (Bld) [#/Vol] 5.2 10*3/uL 1.8 - 7.7 10*3/uL [facility] Neutrophils/100 WBC Manual cnt (Syn fld) 61.7 % . [facility] NRBC 0.1 /100{WBC} 0 - 0.5 /100{WBC} [facility] Platelet mean volume (Bld) [Entitic vol] 7.4 fL 6.6 - 10.1 fL [facility] Platelets (Bld) [#/Vol] 178 10*3/uL 150 - 450 10*3/uL [facility] RBC LM.HPF (Urine sed) [#/Area] 4.72 /[HPF] 3.90 - 5.60 [facility] WBC (Bld) [#/Vol] 8.4 10*3/uL 4.1 - 10.5 10*3/uL [facility] WBC LM.HPF (Urine sed) [#/Area] 8.4 10*3/uL 4.1 - 10.5 10*3/uL Replaced by [facility] Calcium [Mass/volume] in Ser um or PlasmaOrdered By: Maria Ines Hanley on 03-29-2024 Calcium [Mass/Vol] 8.8 mg/dL Normal 8.6-10.3 [facility] Comment on above: Performed By: #### S PE, IMM RICKEY, KAPPA, B2-MICRO #### [facility] , #### LDH, CMP, CBC, HAPT #### [facility] [address] [place] [address] Calcium [Mass/Vol] Calcium [Mass/volume ] in Serum or Plasma 8.6-10.3 [facility] Carbon dioxide, total [Moles /volume] in Serum or PlasmaOrdered By: Maria Ines Talon on 03-29-2024 CO2 [Moles/Vol] 30.5 mmol/L Normal 21.0-31.[address] [facility] Comment on above: Performed By: #### S PE, IMM RICKEY, KAPPA, B2-MICRO #### [facility] , #### LDH, CMP, CBC, HAPT #### [facility] [address] CO2 [Moles/Vol] Carbon dioxide, tota l [Moles/volume] in Serum or Plasma 21.0-31.0 [facility] Chloride [Moles/volume] in S flor or PlasmaOrdered By: Maria Ines Hanley on 03-29-2024 Chloride [Moles/Vol] 106 mmol/L Normal 98-107 [facility] Comment on above: Performed By: #### S PE, IMM RICKEY, KAPPA, B2-MICRO #### [facility] , #### LDH, CMP, CBC, HAPT #### [facility] [address] [place] [address] Chloride [Moles/Vol] Chloride [Moles/vol ume] in Serum or Plasma 98-107 [facility] Complete Blood Count Auto Di ffon 03-29-2024 Mean Corpuscular HGB Conc 34.0 g/dL Normal 32.5-35.6 [facility] Comment on above: Performed By: #### S PE, IMM RICKEY, KAPPA, B2-MICRO #### [facility] , #### LDH, CMP, CBC, HAPT #### [facility] [address] [place] [address] NRBC% 0.1 /100{WBC} Normal 0-0.5 [facility] Comment on above: Performed By: #### S PE, IMM RICKEY, KAPPA, B2-MICRO #### [facility] , #### LDH, CMP, CBC, HAPT #### [facility] [address] [place] [address] Comprehensive Metabolic Pane andrea 03-29-2024 Albumin [Mass/Vol] 4.0 g/dL Normal 3.5-5.7 [facility] Comment on above: Performed By: #### S PE, IMM RICKEY, KAPPA, B2-MICRO #### [facility] , #### LDH, CMP, CBC, HAPT #### [facility] [address] Creatinine Clr Calc Pharmacy 82.13 Normal [facility] Comment on above: Performed By: #### S PE, IMM RICKEY, KAPPA, B2-MICRO #### [facility] , #### LDH, CMP, CBC, HAPT #### [place] [address] [place] GFR/1.73 sq M.predicted MDRD (S/P/Bld) [Vol rate/Area] mL/min/{1.73_m2} Normal [facility] Comment on above: Performed By: #### S PE, IMM RICKEY, KAPPA, B2-MICRO #### [facility] , #### LDH, CMP, CBC, HAPT #### [address] 03-29-2024 Albumin [Mass/Vol] 4.0 g/dL 3.5 - 5.7 g/dL [facility] Albumin/Globulin [Mass ratio] 2.2 {ratio} [facility] ALP [Catalytic activity/Vol] 46 U/L 34 - 104 U/L [facility] ALT [Catalytic activity/Vol] 16 U/L 7 - 52 U/L [facility] Anion gap [Moles/Vol] 7.4 mmol/L 6.0 - 15.0 [facility] AST [Catalytic activity/Vol] 15 U/L 13 - 39 U/L [facility] Bilirubin [Mass/Vol] 0.5 mg/dL 0.3 - 1 .0 mg/dL [facility] Calcium [Mass/Vol] 8.8 mg/dL 8.6 - 10. 3 mg/dL [facility] Chloride [Moles/Vol] 106 mmol/L 98 - 10 7 mmol/L [facility] CO2 [Moles/Vol] 30.5 mmol/L 21.0 - 31.0 mmol/L [facility] Creatinine (U) [Mass/Vol] 1.04 mg/dL 0.70 - 1.30 mg/dL [facility] CREATININE CLR CALC PHARMACY 82.13 [facility] GFR/1.73 sq M.predicted MDRD (S/P/Bld) [Vol rate/Area] mL/min/{1.73_m2} [facility] Globulin (S) [Mass/Vol] 1.8 g/dL [facility] Glucose [Mass/Vol] 112 mg/dL High 70 - 100 mg/dL [facility] Comment on above: Random Glucose Refer ence Range is dependent on time and content of last meal. Glucose of more than 200 mg/dL in a nonstressed, ambulatory subject supports the diagnosis of Diabetes Mellitus. ADA recommended reference range Interpretation and review of laboratory results Abnormal [facility] Potassium [Moles/Vol] 3.9 mmol/L 3.5 - 5.1 mmol/L [facility] Protein [Mass/Vol] 5.8 g/dL Low 6.4 - 8.9 g/dL [facility] Sodium [Moles/Vol] 140 mmol/L 136 - 145 mmol/L [facility] Urea nitrogen [Mass/Vol] 12 mg/dL 7 - 25 mg/dL [facility] Creatinine [Mass/volume] in Serum or PlasmaOrdered By: Maria Ines Hanley on 03-29-2024 Creatinine [Mass/Vol] 1.04 mg/dL Normal 0.70-1.30 [facility] Comment on above: Performed By: #### S PE, IMM RICKEY, KAPPA, B2-MICRO #### [facility] , #### LDH, CMP, CBC, HAPT #### [facility] [address] Creatinine [Mass/Vol] Creatinine [Mass/v olume] in Serum or Plasma 0.70-1.30 [facility] Direct [place] 03-29-2024 Polyspecific AHG Negative Normal Negative [facility] Comment on above: Result Comment: PERF ORMED BY: [place] [address] PATHOLOGIST MEAT CARVER WILLI VILLEDA M.D. Eosinophils Auto (Bld) [#/Vo l]Ordered By: Maria Ines Hanley on 03-29-2024 Eosinophils (Bld) [#/Vol] Automated eosinophil count 0.0-0.45 [facility] Eosinophils/100 WBC Auto (Bl d)Ordered By: Maria Ines Hanley on 03-29-2024 Eosinophils/100 WBC (Bld) Automated eosinophil % . [facility] Erythrocyte distribution wid th Auto (RBC) [Ratio]Ordered By: Maria Ines Hanley on 03-29-2024 Erythrocyte distribution width (RBC) [Ratio] Erythrocyte distribution width [Ratio] by Automated count 12.0-14.8 [facility] Erythrocyte distribution wid th [Ratio] by Automated countOrdered By: Maria Ines Talon on 03-29-2024 Erythrocyte distribution width (RBC) [Ratio] 14.2 % Normal 12.0-14.8 [facility] Comment on above: Performed By: #### S PE, IMM RICKEY, KAPPA, B2-MICRO #### [facility] , #### LDH, CMP, CBC, HAPT #### [facility] [address] [place] [address] [place] Erythrocytes [#/volume] in B lood by Automated countOrdered By: Maria Ines Monroese on 03-29-2024 RBC (Bld) [#/Vol] 4.72 10*6/uL Normal 3.90-5.60 [facility] Comment on above: Performed By: #### S PE, IMM RICKEY, KAPPA, B2-MICRO #### [facility] , #### LDH, CMP, CBC, HAPT #### [facility] [address] [place] [address] [place] Free K+L LT Chains, Qn, Son 03-29-2024 Free [place] Light Chains, S 16.4 mg/L Normal 3.3-19.4 [facility] Comment on above: Performed By: #### V ANCP #### [facility] [address] [place] [id number] [place] Free [place]ambda Light Chains, S 18.0 mg/L Normal 5.7-26.3 [facility] Comment on above: Performed By: #### V ANCP #### [address] [place]/Lambda Ratio, S 0.91 Normal 0.26-1.65 [facility] Comment on above: Result Comment: Perf ormed at: - [facility] [address] [id number] Veterinary Science Teacher: Clifton Rooney PhD, Phone: [phone] PERFORMED BY: [place] [address] PATHOLOGIST MEAT CARVER WILLI VILLEDA M.D. Performed By: #### V ANCP #### [address] Globulin Calc (S) [Mass/Vol] Ordered By: Maria Ines Hanley on 03-29-2024 Globulin (S) [Mass/Vol] Serum globulin measurement by calculation (mass/volume) [facility] Glucose [Mass/volume] in Ser um or PlasmaOrdered By: Maria Ines Hanley on 03-29-2024 Glucose [Mass/Vol] 112 mg/dL High 70-100 [facility] Comment on above: ADA recommended refe rence rangeRandom Glucose Reference Range is dependent on time and content of last meal. Glucose of more than 200 mg/dL in a nonstressed, ambulatory subject supports the diagnosis of Diabetes Mellitus. Result Comment: [place] om Glucose Reference Range is dependent on time and content of last meal. Glucose of more than 200 mg/dL in a nonstressed, ambulatory subject supports the diagnosis of Diabetes Mellitus. ADA recommended reference range Performed By: #### S PE, IMM RICKEY, KAPPA, B2-MICRO #### [facility] , #### LDH, CMP, CBC, HAPT #### [facility] [address] [place] [address] Glucose [Mass/Vol] Glucose [Mass/volume ] in Serum or Plasma High 70-100 [facility] Comment on above: ADA recommended refe rence rangeRandom Glucose Reference Range is dependent on time and content of last meal. Glucose of more than 200 mg/dL in a nonstressed, ambulatory subject supports the diagnosis of Diabetes Mellitus. Haptoglobinon 03-29-2024 HAPTOGLOBIN 124 mg/dL 44 - 215 mg/dL Replaced by [facility] Haptoglobin 124 mg/dL Normal 44-215 [facility] Comment on above: Result Comment: PERF ORMED BY: [place] [address] PATHOLOGIST MEAT CARVER WILLI VILLEDA M.D. Performed By: #### S PE, IMM RICKEY, KAPPA, B2-MICRO #### [facility] , #### LDH, CMP, CBC, HAPT #### [facility] [address] [place] [address] [place] Haptoglobin [Mass/volume] in Serum or PlasmaOrdered By: Maria Ines Hanley on 03-29-2024 Haptoglobin [Mass/Vol] 124 mg/dL 44-215 [facility] Haptoglobin [Mass/Vol] Haptoglobin [Mass /volume] in Serum or Plasma 44-215 [facility] Hematocrit Auto (Bld) [Volum e fraction]Ordered By: Maria Ines Hanley on 03-29-2024 Hematocrit (Bld) [Volume fraction] Hematocrit [Volume Fraction] of Blood by Automated count 38.8-50.0 [facility] Hematocrit [Volume Fraction] of Blood by Automated countOrdered By: Maria Ines Hanley on 03-29-2024 Hematocrit (Bld) [Volume fraction] 42.0 % Normal 38.8-50.0 [facility] Comment on above: Performed By: #### S PE, IMM RICKEY, KAPPA, B2-MICRO #### [facility] , #### LDH, CMP, CBC, HAPT #### [facility] [address] [place] [address] [place] Hemoglobin [Mass/volume] in BloodOrdered By: Maria Ines Hanley on 03-29-2024 Hemoglobin (Bld) [Mass/Vol] 14.3 g/dL Normal 13.0-17.0 [facility] Comment on above: Performed By: #### S PE, IMM RICKEY, KAPPA, B2-MICRO #### [facility] , #### LDH, CMP, CBC, HAPT #### [facility] [address] Hemoglobin (Bld) [Mass/Vol] Hemoglobin [Mass/volume] in Blood 13.0-17.0 [facility] IgA [Mass/volume] in Serum o r PlasmaOrdered By: Maria Ines Hanley on 03-29-2024 IgA [Mass/Vol] 103 mg/dL 61-437 [facility] IgG [Mass/volume] in Serum o r PlasmaOrdered By: Maria Ines Hanley on 03-29-2024 IgG [Mass/Vol] 877 mg/dL 603-1613 [facility] IgM [Mass/volume] in Serum o r PlasmaOrdered By: Maria Ines Hanley on 03-29-2024 IgM [Mass/Vol] 112 mg/dL 20-172 [facility] Comment on above: Performed at: [facility] [place] [id number] Director: Clifton Rooney PhD, Phone: [phone] Immunoglobulin light chains. kappa.free [Mass/volume] in SerumOrdered By: Maria Ines Hanley on 03-29-2024 Immunoglobulin light chains.kappa.free (S) [Mass/Vol] 16.4 mg/L 3.3-19.4 [facility] Immunoglobulin light chains. kappa.free/Immunoglobulin light chains.lambda.free [MassOrdered By: Maria Ines Hanley on 03-29-2024 Immunoglobulin light chains.kappa.free/Immu noglobulin light chains.lambda.free (S) [Mass ratio] 0.91 0.26-1.65 [facility] Comment on above: Performed at: [facility] [place], [place] [id number] Director: Clifton Rooney PhD, Phone: [phone] Immunoglobulin light chains. lambda.free [Mass/volume] in Serum or PlasmaOrdered By: Maria Ines Hanley on 03-29-2024 Immunoglobulin light chains.lambda.free [Mass/Vol] 18.0 mg/L 5.7-26.3 [facility] Immunoglobulins A/G/M, Qn, S fabricio 03-29-2024 Immunoglobulin A, Serum 103 mg/dL Normal 61-437 [facility] Comment on above: Performed By: #### S PE, IMM RICKEY, KAPPA, B2-MICRO #### [facility] , #### LDH, CMP, CBC, HAPT #### [address] Immunoglobulin G 877 mg/dL Normal 603-1613 [facility] Comment on above: Performed By: #### S PE, IMM RICKEY, KAPPA, B2-MICRO #### [facility] , #### LDH, CMP, CBC, HAPT #### [address] Immunoglobulin M, Serum 112 mg/dL Normal 20-172 [facility] Comment on above: Result Comment: Perf ormed at: - [facility] [address] [id number] Veterinary Science Teacher: Clifton Rooney PhD, Phone: [phone] Performed By: #### S PE, IMM RICKEY, KAPPA, B2-MICRO #### [facility] , #### LDH, CMP, CBC, HAPT #### [address] LDH Lactate Dehydrogenaseon 03-29-2024 LDH Lactate Dehydrogenase 249 U/L Normal 140-271 [facility] Comment on above: Result Comment: PERF ORMED BY: [place] [address] PATHOLOGIST MEAT CARVER WILLI VILLEDA M.D. Performed By: #### S PE, IMM RICKEY, KAPPA, B2-MICRO #### [facility] , #### LDH, CMP, CBC, HAPT #### [address] LDH Lactate to pyruvate reac tion [Catalytic activity/Vol]on 03-29-2024 LDH LACTATE DEHYDROGENASE 249 U/L 140 - 271 U/L [facility] Lactate dehydrogenase [Enzym atic activity/volume] in Serum or Plasma by Lactate to pyOrdered By: Maria Ines Hanley on 03-29-2024 LDH Lactate to pyruvate reaction [Catalytic activity/Vol] 249 U/L 140 [facility] LDH Lactate to pyruvate reaction [Catalytic activity/Vol] Lactate dehydrogenase [Enzymatic activity/volume] in Serum or Plasma by Lactate to py 140- [facility] Leukocytes [#/volume] correc isa for nucleated erythrocytes in Blood by Automated counOrdered By: Maria Ines Hanley on 03-29-2024 WBC corrected for nucl RBC Auto (Bld) [#/Vol] 8.4 10*3/uL 4.1-10.5 [facility] WBC corrected for nucl RBC Auto (Bld) [#/Vol] Leukocytes [#/volume] corrected for nucleated erythrocytes in Blood by Automated coun 4.1-10.5 [facility] Leukocytes [#/volume] in Blo od by Automated countOrdered By: Maria Ines Hanley on 03-29-2024 WBC (Bld) [#/Vol] 8.4 10*3/uL Normal 4.1-10.5 [facility] Comment on above: Performed By: #### S PE, IMM RICKEY, KAPPA, B2-MICRO #### [facility] , #### LDH, CMP, CBC, HAPT #### [facility] [address] [place] [address] [place] Lymphocytes Auto (Bld) [#/Vo l]Ordered By: Maria Ines Hanley on 03-29-2024 Lymphocytes (Bld) [#/Vol] Lymphocytes [#/volume] in Blood by Automated count 1.00-4.8 [facility] Lymphocytes [#/volume] in Bl ood by Automated countOrdered By: Maria Ines Hanley on 03-29-2024 Lymphocytes (Bld) [#/Vol] 2.6 10*3/uL Normal 1.00-4.8 [facility] Comment on above: Performed By: #### S PE, IMM RICKEY, KAPPA, B2-MICRO #### [facility] , #### LDH, CMP, CBC, HAPT #### [facility] [address] [place] [address] [place] Lymphocytes/100 WBC Auto (Bl d)Ordered By: Maria Ines Hanley on 03-29-2024 Lymphocytes/100 WBC (Bld) Lymphocytes/100 leukocytes in Blood by Automated count . [facility] Lymphocytes/100 leukocytes i n Blood by Automated countOrdered By: Maria Ines Hanley on 03-29-2024 Lymphocytes/100 WBC (Bld) 30.9 % Normal . [facility] Comment on above: Performed By: #### S PE, IMM RICKEY, KAPPA, B2-MICRO #### [facility] , #### LDH, CMP, CBC, HAPT #### [facility] [address] MCH Auto (RBC) [Entitic mass ]Ordered By: Maria Ines Hanley on 03-29-2024 MCH (RBC) [Entitic mass] MCH [Entitic mass] by Automated count 27.5-35.2 [facility] MCH [Entitic mass] by Automa isa countOrdered By: Maria Ines Hanley on 03-29-2024 MCH (RBC) [Entitic mass] 30.3 pg Normal 27.5-35.2 [facility] Comment on above: Performed By: #### S PE, IMM RICKEY, KAPPA, B2-MICRO #### [facility] , #### LDH, CMP, CBC, HAPT #### [facility] [address] [place] [address] MCHC Auto (RBC) [Mass/Vol]Or dered By: Maria Ines Hanley on 03-29-2024 MCHC (RBC) [Mass/Vol] 34.0 g/dL 32.5-35.6 [facility] MCHC (RBC) [Mass/Vol] MCHC [Mass/volume] by Automated count 32.5-35.6 [facility] MCV Auto (RBC) [Entitic vol] Ordered By: Maria Ines Hanley on 03-29-2024 MCV (RBC) [Entitic vol] MCV [Entitic volume] by Automated count 83.5-101 [facility] MCV [Entitic volume] by Auto mated countOrdered By: Maria Ines Hanley on 03-29-2024 MCV (RBC) [Entitic vol] 89.0 fL Normal 83.5-101 [facility] Comment on above: Performed By: #### S PE, IMM RICKEY, KAPPA, B2-MICRO #### [facility] , #### LDH, CMP, CBC, HAPT #### [facility] [address] [place] [address] [place] Monocytes Auto (Bld) [#/Vol] Ordered By: Maria Ines Hanley on 03-29-2024 Monocytes (Bld) [#/Vol] Automated blood monocyte count 0.0-0.8 [facility] Monocytes/100 WBC Auto (Bld) Ordered By: Maria Ines Hanley on 03-29-2024 Monocytes/100 WBC (Bld) Automated monocyte % . [facility] Neutrophils Auto (Bld) [#/Vo l]Ordered By: Maria Ines Hanley on 03-29-2024 Neutrophils (Bld) [#/Vol] Neutrophils [#/volume] in Blood by Automated count 1.8-7.7 [facility] Neutrophils [#/volume] in Bl ood by Automated countOrdered By: Maria Ines Hanley on 03-29-2024 Neutrophils (Bld) [#/Vol] 5.2 10*3/uL Normal 1.8-7.7 [facility] Comment on above: Performed By: #### S PE, IMM RICKEY, KAPPA, B2-MICRO #### [facility] , #### LDH, CMP, CBC, HAPT #### [facility] [address] [place] [address] [place] Neutrophils/100 WBC Auto (Bl d)Ordered By: Maria Ines Hanley on 03-29-2024 Neutrophils/100 WBC (Bld) Automated neutrophil % . [facility] No Panel Informationon 03-29 [facility] No Panel InformationOrdered By: Maria Ines Hanley on 03-29-2024 Estimated GFR (CKD-EPI) > 60.0 mL/Min [facility] Creatinine Clearance (Chem 82.13 [facility] Protein Electrophoresis M-Dimitri Not observed g/dL Not Observed [facility] Protein Electrophoresis Note Comment . [facility] Comment on above: Protein electrophore sis scan will follow via computer,mail, or transmission assembler delivery. Nucleated erythrocytes [Pres ence] in Blood by Automated countOrdered By: Maria Ines Hanley on 03-29-2024 Nucleated RBC Auto Ql (Bld) 0.1 /100{WBC} 0-0.5 [facility] Nucleated RBC Auto Ql (Bld) Nucleated erythrocytes [Presence] in Blood by Automated count 0-0.5 [facility] Platelet mean volume Auto (B ld) [Entitic vol]Ordered By: Maria Ines Hanley on 03-29-2024 Platelet mean volume (Bld) [Entitic vol] Platelet mean volume [Entitic volume] in Blood by Automated count 6.6-10.1 [facility] Platelet mean volume [Entiti c volume] in Blood by Automated countOrdered By: Maria Ines Monroese on 03-29-2024 Platelet mean volume (Bld) [Entitic vol] 7.4 fL Normal 6.6-10.1 [facility] Comment on above: Performed By: #### S PE, IMM RICKEY, KAPPA, B2-MICRO #### [facility] , #### LDH, CMP, CBC, HAPT #### [facility] [address] Platelets Auto (Bld) [#/Vol] Ordered By: Maria Ines Monroese on 03-29-2024 Platelets (Bld) [#/Vol] Platelets [#/volume] in Blood by Automated count 150-450 [facility] Platelets [#/volume] in Bloo d by Automated countOrdered By: Maria Ines Hanley on 03-29-2024 Platelets (Bld) [#/Vol] 178 10*3/uL Normal 150-450 [facility] Comment on above: Performed By: #### S PE, IMM RICKEY, KAPPA, B2-MICRO #### [facility] , #### LDH, CMP, CBC, HAPT #### [facility] [address] [place] [address] [place] Potassium [Moles/volume] in Serum or PlasmaOrdered By: Maria Ines Talon on 03-29-2024 Potassium [Moles/Vol] 3.9 mmol/L Normal 3.5-5.1 [facility] Comment on above: Performed By: #### S PE, IMM RICKEY, KAPPA, B2-MICRO #### [facility] , #### LDH, CMP, CBC, HAPT #### [address] Potassium [Moles/Vol] Potassium [Moles/v olume] in Serum or Plasma 3.5-5.1 [facility] Protein Electrophoresis, Ser umon 03-29-2024 Wpdou-3-Tuvfgxcs 0.2 g/dL Normal 0.0-0.4 [facility] Comment on above: Performed By: #### V ANCP #### [address] Lxuzy-2-Rjkvycdq 0.6 g/dL Normal 0.4-1.0 [facility] Comment on above: Performed By: #### V ANCP #### [address] Beta Globulin 0.8 g/dL Normal 0.7-1.3 [facility] Comment on above: Performed By: #### V ANCP #### [address] Gamma Globulin 0.9 g/dL Normal 0.4-1.8 [facility] Comment on above: Performed By: #### V ANCP #### [address] M-Dimitri Not Observed Normal Not Observed [facility] Comment on above: Performed By: #### V ANCP #### [address] SPE-Note Comment Normal . [facility] Comment on above: Result Comment: Prot ein electrophoresis scan will follow via computer, mail, or transmission assembler delivery. Performed By: #### V ANCP #### [address] Protein [Mass/volume] in Ser um or PlasmaOrdered By: Maria Ines Hanley on 03-29-2024 Protein [Mass/Vol] 5.8 g/dL Low 6.4-8.9 [facility] Comment on above: Performed By: #### S PE, IMM RICKEY, KAPPA, B2-MICRO #### [facility] , #### LDH, CMP, CBC, HAPT #### [facility] [address] [place] [address] [place] Protein [Mass/Vol] 5.9 g/dL Low 6.0-8.5 [facility] Comment on above: Performed By: #### V ANCP #### [address] Protein [Mass/Vol] Protein [Mass/volume ] in Serum or Plasma Low 6.0-8.5 [facility] RBC Auto (Bld) [#/Vol]Ordere d By: Maria Ines Halney on 03-29-2024 RBC (Bld) [#/Vol] Erythrocytes [#/volu me] in Blood by Automated count 3.90-5.60 [facility] Serum free kappa light chain measurementOrdered By: Maria Ines Hanley on 03-29-2024 Immunoglobulin light chains.kappa.free (S) [Mass/Vol] Immunoglobulin light chains.kappa.free [Mass/volume] in Serum 3.3-19.4 [facility] Serum globulin measurement ( mass/volume)Ordered By: Maria Ines Hanley on 03-29-2024 Globulin (S) [Mass/Vol] 2.4 g/dL Normal 2.2-3.9 [facility] Comment on above: Performed By: #### V ANCP #### [address] Globulin (S) [Mass/Vol] Serum globulin measurement (mass/volume) 2.2-3.9 [facility] Serum globulin measurement b y calculation (mass/volume)Ordered By: Maria Ines Hanley on 03-29-2024 Globulin (S) [Mass/Vol] 1.8 g/dL Normal [facility] Comment on above: Performed By: #### S PE, IMM RICKEY, KAPPA, B2-MICRO #### [facility] , #### LDH, CMP, CBC, HAPT #### [facility] [address] [place] [address] Serum immunoglobulin free ka ppa light chains/immunoglobulin free lambda light chainsOrdered By: Maria Ines Hanley on 03-29-2024 Immunoglobulin light chains.kappa.free/Immu noglobulin light chains.lambda.free (S) [Mass ratio] Immunoglobulin light chains.kappa.free/Immunogl obulin light chains.lambda.free [Mass 0.26-1.65 [facility] Comment on above: Performed at: [employer] [address] [id number] Director: Clifton Rooney PhD, Phone: [phone] Serum or plasma IgA measurem ent (mass/volume)Ordered By: Maria Ines Hanley on 03-29-2024 IgA [Mass/Vol] IgA [Mass/volume] in Serum or Plasma 61-437 [facility] Serum or plasma IgG measurem ent (mass/volume)Ordered By: Maria Ines Hanley on 03-29-2024 IgG [Mass/Vol] IgG [Mass/volume] in Serum or Plasma 603-1613 [facility] Serum or plasma IgM measurem ent (mass/volume)Ordered By: Mraia Ines Hanley on 03-29-2024 IgM [Mass/Vol] IgM [Mass/volume] in Serum or Plasma 20-172 [facility] Comment on above: Performed at: [facility] [employer] [address] [id number] Director: Clifton Rooney PhD, Phone: [phone] Serum or plasma albumin abraham urement (mass/volume)Ordered By: Maria Ines Hanley on 03-29-2024 Albumin [Mass/Vol] Albumin [Mass/volume ] in Serum or Plasma 2.9-4.4 [facility] Serum or plasma albumin/glob ulin mass ratioOrdered By: Maria Ines Hanley on 03-29-2024 Albumin/Globulin [Mass ratio] 2.2 {ratio} Normal [facility] Comment on above: Performed By: #### S PE, IMM RICKEY, KAPPA, B2-MICRO #### [facility] , #### LDH, CMP, CBC, HAPT #### [address] Albumin/Globulin [Mass ratio] 1.5 {ratio} Normal 0.7-1.7 [facility] Comment on above: Performed By: #### V ANCP #### [facility] [address] Albumin/Globulin [Mass ratio] Serum or plasma albumin/globulin mass ratio 0.7-1.7 [facility] Serum or plasma alpha 1 glob ulin measurement by electrophoresis (mass/volume)Ordered By: Maria Ines Hanley on 03-29-2024 Alpha 1 globulin Elph [Mass/Vol] 0.2 g/dL 0.0-0.4 [facility] Alpha 1 globulin Elph [Mass/Vol] Serum or plasma alpha 1 globulin measurement by electrophoresis (mass/volume) 0.0-0.4 [facility] Serum or plasma alpha 2 glob ulin measurement by electrophoresis (mass/volume)Ordered By: Maria Ines Hanley on 03-29-2024 Alpha 2 globulin Elph [Mass/Vol] 0.6 g/dL 0.4-1.0 [facility] Alpha 2 globulin Elph [Mass/Vol] Serum or plasma alpha 2 globulin measurement by electrophoresis (mass/volume) 0.4-1.0 [facility] Serum or plasma anion gap de terminationOrdered By: Maria Ines Hanley on 03-29-2024 Anion gap [Moles/Vol] 7.4 mmol/L Normal 6.0-15.0 [facility] Comment on above: Performed By: #### S PE, IMM RICKEY, KAPPA, B2-MICRO #### [facility] , #### LDH, CMP, CBC, HAPT #### [facility] [address] [place] [address] Anion gap [Moles/Vol] Serum or plasma an ion gap determination 6.0-15.0 [facility] Serum or plasma beta globuli n measurement by electrophoresis (mass/volume)Ordered By: Maria Ines Hanley on 03-29-2024 Beta globulin Elph [Mass/Vol] 0.8 g/dL 0.7-1.3 [facility] Beta globulin Elph [Mass/Vol] Serum or plasma beta globulin measurement by electrophoresis (mass/volume) 0.7-1.3 [facility] Serum or plasma hvos-6-uqvic globulin measurement (mass/volume)Ordered By: Maria Ines Hanley on 03-29-2024 Cmbr-0-Dvjkrmmrvgvkr [Mass/Vol] 2.2 ug/mL 0.6-2.4 [facility] Comment on above: Siemens Immulite 200 0 Immunochemiluminometric assay (ICMA)Values obtained with different assay methods or kits cannotbe used interchangeably. Results cannot be interpreted asabsolute evidence of the presence or absence of malignantdisease.Performed at: [employer] [address] [id number] Director: Sohan Broderick MD, Phone: [phone] Tpbr-9-Oywewhnwjtgak [Mass/Vol] Serum or plasma fjav-5-mtkmnjkovqdna measurement (mass/volume) 0.6-2.4 [facility] Comment on above: Siemens Immulite 200 0 Immunochemiluminometric assay (ICMA)Values obtained with different assay methods or kits cannotbe used interchangeably. Results cannot be interpreted asabsolute evidence of the presence or absence of malignantdisease.Performed at: [employer] [id number] Director: Sohan Broderick MD, Phone: [phone] Serum or plasma gamma globul in measurement by electrophoresis (mass/volume)Ordered By: Maria Ines Hanley on 03-29-2024 Gamma globulin Elph [Mass/Vol] 0.9 g/dL 0.4-1.8 [facility] Gamma globulin Elph [Mass/Vol] Serum or plasma gamma globulin measurement by electrophoresis (mass/volume) 0.4-1.8 [facility] Serum or plasma immunoglobul in free lambda light chains measurement (mass/volume)Ordered By: Maria Ines Hanley on 03-29-2024 Immunoglobulin light chains.lambda.free [Mass/Vol] Immunoglobulin light chains.lambda.free [Mass/volume] in Serum or Plasma 5.7-26.3 [facility] Sodium [Moles/volume] in Ser um or PlasmaOrdered By: Maria Ines Hanley on 03-29-2024 Sodium [Moles/Vol] 140 mmol/L Normal 136-145 [facility] Comment on above: Performed By: #### S PE, IMM RICKEY, KAPPA, B2-MICRO #### [facility] , #### LDH, CMP, CBC, HAPT #### [facility] [address] [place] [id number] [place] Sodium [Moles/Vol] Sodium [Moles/volume ] in Serum or Plasma 136-145 [facility] Urea nitrogen [Mass/volume] in Serum or PlasmaOrdered By: Maria Ines Talon on 03-29-2024 Urea nitrogen [Mass/Vol] 12 mg/dL Normal 02-22 [facility] Comment on above: Performed By: #### S PE, IMM RICKEY, KAPPA, B2-MICRO #### [facility] , #### LDH, CMP, CBC, HAPT #### [facility] [address] [place] [id number] [facility] Urea nitrogen [Mass/Vol] Urea nitrogen [Mass/volume] in Serum or Plasma 02-22 [facility] WBC Auto (Bld) [#/Vol]Ordere d By: Maria Ines Hanley on 03-29-2024 WBC (Bld) [#/Vol] Leukocytes [#/volume ] in Blood by Automated count 4.1-10.5 [facility] 03-09-20 [facility] Case Information Case Priority: None Programs: -- 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 Created By: Jignesh Guerrero [facility] Family Medicine Office/Clini c Noteon 03-02-2024 Family Medicine Office/Clinic Note Family Medicine Office/Clinic Note HPI Staff Mily is a 68 year old male presenting with ER followup: 02/27/24 US Venous Doppler 02/27/24 Chest XR Hospital: [facility] Visit date: 02/26- 03/01 Symptoms the patient [...] TCM Trans care mgmt 7 day disch 51667 2. Abscess of arm (L02.419: Cutaneous abscess of limb, unspecified) incision is clean and dry sutures intact Ordered: TCM Trans care mgmt 7 day disch 82071 3. Non-smoker (Z78.9: Other specified health status) continue not smoking Ordered: TCM Trans care mgmt 7 day disch 58368 4. BMI 29.0-29.9,adult (Z68.29: Body mass index [BMI] 29.0-29.9, adult) BMI education given Ordered: TCM Trans care mgmt 7 day disch 65121 Follow-up No qualifying data available Problem List/Past [...] cap(s), Oral, Daily, 11 refills Multi Vitamin+ [employer]Sw[employer] cpap machine supplies: head gear, mask, tubing [...] virus vaccine, inactivated 05/14/2022 Recorded SARS-CoV-2 (COVID-19) [id number] 05/14/2022 Recorded SARSCoV2 mRNA(bmewzsmzw-bnqn-wpugsx ) vac 12/07/2021 Recorded SARS-CoV-2 (COVID-19) mRNA BNT-162b2 vax 05/10/2021 Recorded SARS-CoV-2 (COVID-19) Ad26 vaccine 10/18/2020 Recorded SARS-CoV-2 (COVID-19) mRNA BNT-162b2 vax 09/27/2020 Recorded SARS-CoV-2 (COVID-19) Ad26 vaccine 09/02/2020 Recorded pneumococcal 13-valent vaccine 06/05/2020 Recorded influenza virus vaccine, inactivated 06/05/2020 Recorded Normal [facility] Comment on above: Result Comment: Elec tronically Signed By: Thai KEY, Qiana Vidal\.br\Date and Time Signed: 03/02/24 14:23 EDT Basic Metabolic Panelon Creatinine Clr Calc Pharmacy 82.82 Normal [facility] Comment on above: Performed By: #### V ANCP #### [place] [address] [place] GFR/1.73 sq M.predicted MDRD (S/P/Bld) [Vol rate/Area] mL/min/{1.73_m2} Normal [facility] Comment on above: Performed By: #### V ANCP #### [place] [address] [place] Calcium [Mass/volume] in Ser um or PlasmaOrdered By: Antony Thompson on 03-01-2024 Calcium [Mass/Vol] 8.8 mg/dL Normal 8.6-10.3 [facility] Comment on above: Performed By: #### V ANCP #### [place] [address] [place] Carbon dioxide, total [Moles /volume] in Serum or PlasmaOrdered By: Antony Thompson on 03-01-2024 CO2 [Moles/Vol] 24.8 mmol/L Normal 21.0-31.[address] [facility] Comment on above: Performed By: #### V ANCP #### [facility] [address] [place] [address] [place] Chloride [Moles/volume] in S flor or PlasmaOrdered By: Antony Thompson on 03-01-2024 Chloride [Moles/Vol] 104 mmol/L Normal 98-107 [facility] Comment on above: Performed By: #### V ANCP #### [place] [address] [place] Creatinine [Mass/volume] in Serum or PlasmaOrdered By: Antony Thompson on 03-01-2024 Creatinine [Mass/Vol] 1.03 mg/dL Normal 0.70-1.30 [facility] Comment on above: Performed By: #### V ANCP #### [facility] [address] [place], [place] [id number] [facility] ECG 12 lead ECGon 03-01-2024 ECG 12 lead ECG [facility] [address] [place] [address] Electrocardiograph Report Signed Patient: Mily Ibrahim MR#: [id number] : 1955 Acct:[id number] Age/Sex: 68 / M ADM Date: 02/27/24 Loc: Room: [id number] Type: ADM IN Attending Dr: Antony Thompson [...] rhythm Normal ECG Confirmed by KENNEDY EATON [facility], YULIANA (137) on 03/01/2024 12:39:06 PM Referred By: Electronically Signed By: YULIANA BENAVIDES MD [facility] Transcribed By: MUS Signed By Yuliana Benavides MD, [facility] 03/01/24 1239 Normal [facility] Erythrocyte distribution wid th [Ratio] by Automated countOrdered By: Antony Thompson on 03-01-2024 Erythrocyte distribution width (RBC) [Ratio] 12.9 % Normal 12.0-14.8 [facility] Comment on above: Performed By: #### V ANCP #### [facility] [address] [place] [address] [place] Erythrocytes [#/volume] in B lood by Automated countOrdered By: Antony Thompson on 03-01-2024 RBC (Bld) [#/Vol] 4.95 10*6/uL Normal 3.90-5.60 [facility] Comment on above: Performed By: #### V ANCP #### [facility] [address] [place] [address] Glucose [Mass/volume] in Ser um or PlasmaOrdered By: Antony Thompson on 03-01-2024 Glucose [Mass/Vol] 126 mg/dL High 70-100 [facility] Comment on above: ADA recommended refe rence rangeRandom Glucose Reference Range is dependent on time and content of last meal. Glucose of more than 200 mg/dL in a nonstressed, ambulatory subject supports the diagnosis of Diabetes Mellitus. Result Comment: [place] om Glucose Reference Range is dependent on time and content of last meal. Glucose of more than 200 mg/dL in a nonstressed, ambulatory subject supports the diagnosis of Diabetes Mellitus. ADA recommended reference range Performed By: #### V ANCP #### [address] Hematocrit [Volume Fraction] of Blood by Automated countOrdered By: Antony Thompson on 03-01-2024 Hematocrit (Bld) [Volume fraction] 43.7 % Normal 38.8-50.0 [facility] Comment on above: Performed By: #### V ANCP #### [address] Hemoglobin [Mass/volume] in BloodOrdered By: Antony Thompson on 03-01-2024 Hemoglobin (Bld) [Mass/Vol] 14.8 g/dL Normal 13.0-17.0 [facility] Comment on above: Performed By: #### V ANCP #### [address] Hemogram CBC Without Diffon 03-01-2024 Mean Corpuscular HGB Conc 33.9 g/dL Normal 32.5-35.6 [facility] Comment on above: Performed By: #### V ANCP #### [place] [address] [place] WBC (Bld) [#/Vol] 19.5 10*3/uL High 4.1-10.5 [facility] Comment on above: Performed By: #### V ANCP #### [place] [address] [place] Leukocytes [#/volume] correc isa for nucleated erythrocytes in Blood by Automated counOrdered By: Antony Thompson on 03-01-2024 WBC corrected for nucl RBC Auto (Bld) [#/Vol] 19.5 10*3/uL High 4.1-10.5 [facility] MCH [Entitic mass] by Automa isa countOrdered By: Antony Thompson on 03-01-2024 MCH (RBC) [Entitic mass] 29.9 pg Normal 27.5-35.2 [facility] Comment on above: Performed By: #### V ANCP #### [facility] [address] [place] [address] MCHC Auto (RBC) [Mass/Vol]Or dered By: Antony Thompson on 03-01-2024 MCHC (RBC) [Mass/Vol] 33.9 g/dL 32.5-35.6 [facility] MCV [Entitic volume] by Auto mated countOrdered By: Antony Thompson on 03-01-2024 MCV (RBC) [Entitic vol] 88.1 fL Normal 83.5-101 [facility] Comment on above: Performed By: #### V ANCP #### [facility] [address] [place] [address] Magnesium [Mass/volume] in S flor or PlasmaOrdered By: Antony Thompson on 03-01-2024 Magnesium [Mass/Vol] 1.9 mg/dL Normal 1.9-2.7 [facility] Comment on above: Result Comment: PERF ORMED BY: [place] [address] PATHOLOGIST MEAT CARVER WILLI VILLEDA M.D. Performed By: #### V ANCP #### [facility] [address] [place] [address] No Panel InformationOrdered By: Antony Thompson on 03-01-2024 Estimated GFR (CKD-EPI) > 60.0 mL/Min [facility] Creatinine Clearance (Chem 82.82 [facility] Platelet mean volume [Entiti c volume] in Blood by Automated countOrdered By: Antony Thompson on 03-01-2024 Platelet mean volume (Bld) [Entitic vol] 7.2 fL Normal 6.6-10.1 [facility] Comment on above: Result Comment: PERF ORMED BY: [place] [address] PATHOLOGIST ME[employer] CARVER WILLI VILLEDA M.D. Performed By: #### V ANCP #### [place] [address] [place] Platelets [#/volume] in Bloo d by Automated countOrdered By: Antony Thompson on 03-01-2024 Platelets (Bld) [#/Vol] 223 10*3/uL Normal 150-450 [facility] Comment on above: Performed By: #### V ANCP #### [address] Potassium [Moles/volume] in Serum or PlasmaOrdered By: Antony Thompson on 03-01-2024 Potassium [Moles/Vol] 4.6 mmol/L Normal 3.5-5.1 [facility] Comment on above: Performed By: #### V ANCP #### [address] Serum or plasma anion gap de terminationOrdered By: Antony Thompson on 03-01-2024 Anion gap [Moles/Vol] 11.8 mmol/L Normal 6.0-15.0 [facility] Comment on above: Performed By: #### V ANCP #### [place] [address] [place] Sodium [Moles/volume] in Ser um or PlasmaOrdered By: Antony Thompson on 03-01-2024 Sodium [Moles/Vol] 136 mmol/L Normal 136-145 [facility] Comment on above: Performed By: #### V ANCP #### [place] [address] [place] Urea nitrogen [Mass/volume] in Serum or PlasmaOrdered By: Antony Thompson on 08-01-2024 Urea nitrogen [Mass/Vol] 14 mg/dL Normal 7-25 [facility] Comment on above: Performed By: #### V ANCP #### [facility] [address] [place], [place] [address] [place] Aerobic Cultureon 02-29-2024 Aerobic Culture Comment Abscess 3 No Growth 2 Days Comment Abscess 3 No Anaerobes Isolated 3 Days Comment Abscess 3 Gram Stain Result 2+ White Blood Cells No Bacteria Seen PERFORMED BY: [place] [address] PATHOLOGIST MEAT CARVER WILLI VILLEDA M.D. Normal [facility] Comment on above: Performed By: #### V ANCP #### [address] Aerobic Culture Comment Abscess 2 No Growth 2 Days Comment Abscess 2 No Anaerobes Isolated 3 Days Comment Abscess 2 Gram Stain Result 2+ White Blood Cells No Bacteria Seen PERFORMED BY: [place] [address] PATHOLOGIST ME[employer] CARVER WILLI VILLEDA M.D. Normal [facility] Comment on above: Performed By: #### V ANCP #### [address] [address] [facility] Aerobic Culture Comment Abscess 1 No Growth 2 Days Comment Abscess 1 No Anaerobes Isolated 3 Days Comment Abscess 1 Gram Stain Result 2+ White Blood Cells No Bacteria Seen PERFORMED BY: [place] [address] PATHOLOGIST ME[employer] CARVER WILLI VILLEDA M.D. Normal [facility] Comment on above: Performed By: #### V ANCP #### [place] [address] [place] ECG 12 lead ECGon 02-29-2024 ECG 12 lead ECG [facility] [address] [place] [address] Electrocardiograph Report Signed Patient: Mily Ibrahim MR#: [id number] : 1955 Acct:[id number] Age/Sex: 68 / M ADM Date: 02/27/24 Loc: Room: 4C6838-0 Type: ADM IN Attending Dr: Antony Thompson [...] change was found Confirmed by [facility] (137) on 02/29/2024 4:25:50 PM Referred By: Electronically Signed By: YULIANA BENAVIDES MD [facility] Transcribed By: MUS Signed By Yuliana Benavides MD, FACC 02/29/24 1627 Normal [facility] Gram stain for investigation of transfusion reactionOrdered By: Enoch Han on 02-29-2024 Microscopic observation Gram stain Nom (Unsp spec) No Anaerobes Isolated 1 Day [facility] Microscopic observation Gram stain Nom (Unsp spec) No Anaerobes Isolated 3 Days [facility] Microscopic observation Gram stain Nom (Unsp spec) No Anaerobes Isolated 1 Day [facility] Microscopic observation Gram stain Nom (Unsp spec) No Anaerobes Isolated 3 Days [facility] Microscopic observation Gram stain Nom (Unsp spec) No Anaerobes Isolated 1 Day [facility] Microscopic observation Gram stain Nom (Unsp spec) No Anaerobes Isolated 3 Days [facility] Andrea 02-29-2024 L ------ Specimen: [id number] Received: 03/01/24 Status: KAEL Moreland Num: [id number] Spec Type: Surgical Subm Dr: Enoch Han DO Tissues: A Abscess (RT ELBOW, CORE) B Abscess (RT ELBOW CORE #2) C Abscess (RT ELBOW CORE #3) D Abscess (RT ELBOW CORE #4) Procedures: HE/4, Gross/Micro L3/4, AE1-AE3, BCL-2, BCL-6, CD10, CD20, CD3, CD5, Ki-67, PAX5 Age/ Patient Sex Location Account Attending Physician Mily Ibrahim 68/M 4N [id number] Antony Thompson DO SPEC NUM: [id number] RECD: 03/01/24 STATUS: KAEL MORELAND NUM: [id number] [place]: 02/29/24-[facility] DR: Enoch Han DO ENTERED: 03/01/[address]: MORENA TYPE: Surgical DEPT: S ORDERED: HE/4, Gross/Micro L3/4, AE1-AE3, BCL-2, BCL-6, CD10, CD20, CD3, CD5, Ki-67, PAX5 ORDERED: HE/4, Gross/Micro L3/4, AE1-AE3, BCL-2, BCL-6, CD10, CD20, CD3, CD5, Ki-67, PAX5 Supplemental Report Addendum 2 Entered: 08/07/24-8816 This case has been reviewed at [facility] pathology department. Their diagnosis is as follows: [...] to attached report for diagnostic details. Specimen: [id number] Received: 03/01/24 Status: KAEL Moreland Num: [id number] Spec Type: Surgical Subm Dr: Enoch Han, DO Tissues: A Abscess (RT ELBOW, CORE) B Abscess (RT ELBOW CORE #2) C Abscess (RT ELBOW CORE #3) D Abscess (RT ELBOW CORE #4) Procedures: HE/4, Gross/Micro L3/4, AE1-AE3, BCL-2, BCL-6, CD10, CD20, CD3, CD5, Ki-67, PAX5 Patient: Mily Ibrahim [id number] (Continued) Specimen: [id number] Received: 03/01/24 (Continued) Supplemental Report (Continued) Signed (signature on file) Melany Gonzalez MD 03/06/24 1705 Specimen: [id number] Received: 03/01/24 Status: KAEL Moreland Num: [id number] Spec Type: Surgical Subm Dr: Enoch Han, DO Tissues: A Abscess (RT ELBOW, CORE) B Abscess (RT ELBOW CORE #2) C Abscess (RT ELBOW CORE #3) D Abscess (RT ELBOW CORE #4) Procedures: HE/4, Gross/Micro L3/4, AE1-AE3, BCL-2, BCL-6, CD10, CD20, CD3, CD5, Ki-67, PAX5 Patient: Mily Ibrahim [id number] (Continued) Specimen: [id number] Received: 03/01/24 (Continued) Supplemental Report (Continued) Addendum Signed (signature on file) Melany Gonzalez MD 08/07/24 1551 Addendum 1 Entered: 03/22/242 This case was sent to [facility] for consultation. Their diagnosis is as follows: A?C. Abscess, right elbow, biopsy: Atypical lymphoid infiltrate, morphologically similar to that seen in part D. D. 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 Please see attached consultation report from [facility] for diagnostic details. Addendum Signed (signature on file) Melany Gonzalez MD 03/22/24 1749 Pathological Diagnosis Preliminary report A. Abscess, right elbow, biopsy: Scattered foci of atypical lymphoid proliferation, consistent with high-grade B-cell lymphoma. B. Abscess, right elbow, biopsy: Scattered foci of atypical lymphoid proliferation, consistent with high-grade B-elizabeth (more content not included)... Normal [facility] Serum or plasma trough vanco mycin levelOrdered By: Antony Thompson on 02-29-2024 Vancomycin trough [Mass/Vol] 11.4 ug/mL 10.0-20.0 [facility] Comment on above: Last dose: - Vancomycin [Mass/volume] in Serum or Plasma --peakOrdered By: Antony Thompson on 02-29-2024 Vancomycin peak [Mass/Vol] 30.5 ug/mL 20.0-40.0 [facility] Comment on above: Last dose: - Vancomycin,Peakon 02-29-2024 Vancomycin,Peak 30.5 ug/mL Normal 20.0-40.0 [facility] Comment on above: Order Comment: Comme nt ?DRAW 1 HOUR AFTER INFUSION COMPLETES Date of last dose?: 20240227 Time of last dose?: 2299 Result Comment: Last dose: - PERFORMED BY: [place] [address] PATHOLOGIST MEAT CARVER WILLI VILLEDA M.D. Performed By: #### V ANCP #### [facility] [address] [place] [address] Vancomycin,Troughon 02-29-20 24 Vancomycin,Trough 11.4 ug/mL Normal 10.0-20.0 [facility] Comment on above: Order Comment: Time of next dose? 2299 Date of last dose?: 20240227 Time of last dose?: 2299 Result Comment: Last dose: - PERFORMED BY: [place] [address] PATHOLOGIST MEAT CARVER WILLI VILLEDA M.D. Performed By: #### C UBLD #### [facility] [address] [place], [place] [address] [facility] Activated partial thrombopla stin time (aPTT) in platelet poor plasma by coagulation aOrdered By: Antony Thompson on 02-28-2024 aPTT Coag (PPP) [Time] 31.3 s 25.1-36.5 [facility] Comment on above: A hematocrit value g reater than 55% may lead to inaccurate results in coagulation testing. Patients having hematocrit values >55% require a special collection tube for coagulation studies. Please contact the laboratory at [phone] for redraw instructions. Alanine aminotransferase [En zymatic activity/volume] in Serum or PlasmaOrdered By: Antony Thompson on 02-28-2024 ALT [Catalytic activity/Vol] 13 U/L Normal 7-52 [facility] Comment on above: Performed By: #### C UBLD #### [facility] [address] [place] [address] Albumin [Mass/volume] in Ser um or Plasma by Bromocresol green (BCG) dye binding methoOrdered By: Antony Thompson on 02-28-2024 Albumin BCG dye [Mass/Vol] 3.4 g/dL Low 3.5-5.7 [facility] Alkaline phosphatase [Enzyma tic activity/volume] in Serum or PlasmaOrdered By: Antony Thompson on 02-28-2024 ALP [Catalytic activity/Vol] 46 U/L Normal 34-104 [facility] Comment on above: Performed By: #### C UBLD #### [facility] [address] [place] [address] Aspartate aminotransferase [ Enzymatic activity/volume] in Serum or PlasmaOrdered By: Antony Thompson on 02-28-2024 AST [Catalytic activity/Vol] 13 U/L Normal 13-39 [facility] Comment on above: Performed By: #### C UBLD #### [address] Automated basophil %Ordered By: Antony Thompson on 02-28-2024 Basophils/100 WBC (Bld) 0.3 % Normal . [facility] Comment on above: Performed By: #### C UBLD #### [address] Automated basophil countOrde red By: Antony Thompson on 02-28-2024 Basophils (Bld) [#/Vol] 0.0 10*3/uL Normal 0.0-0.2 [facility] Comment on above: Result Comment: PERF ORMED BY: [place] [address] PATHOLOGIST MEAT CARVER WILLI VILLEDA M.D. Performed By: #### C UBLD #### [address] Automated blood monocyte cou ntOrdered By: Antony Thompson on 02-28-2024 Monocytes (Bld) [#/Vol] 1.3 10*3/uL High 0.0-0.8 [facility] Comment on above: Performed By: #### C UBLD #### [address] Automated eosinophil %Ordere d By: Antony Thompson on 02-28-2024 Eosinophils/100 WBC (Bld) 1.4 % Normal . [facility] Comment on above: Performed By: #### C UBLD #### [address] Automated eosinophil countOr dered By: Antony Thompson on 02-28-2024 Eosinophils (Bld) [#/Vol] 0.2 10*3/uL Normal 0.0-0.45 [facility] Comment on above: Performed By: #### C UBLD #### [address] Automated monocyte %Ordered By: Antony Thompson on 02-28-2024 Monocytes/100 WBC (Bld) 8.9 % Normal . [facility] Comment on above: Performed By: #### C UBLD #### [address] Automated neutrophil %Ordere d By: Antony Thompson on 02-28-2024 Neutrophils/100 WBC (Bld) 64.2 % Normal . [facility] Comment on above: Performed By: #### C UBLD #### [address] Bilirubin.total [Mass/volume ] in Serum or PlasmaOrdered By: Antony Thompson on 02-28-2024 Bilirubin [Mass/Vol] 0.7 mg/dL Normal 0.3-1.0 [facility] Comment on above: Performed By: #### C UBLD #### [place] [address] [facility] CT humerus RT w conon 2023 CT humerus RT w con [facility] [address] [place] [address] CT Scan Report Signed Patient: Mily Ibrahim MR#: [id number] : 1955 Acct:[id number] Age/Sex: 68 / M ADM Date: 02/27/24 Loc: Room: 6T3509-0 Type: ADM IN Attending Dr: Antony Thompson [...] Ervin Coon M.D.02/28/2024 12:48 PM Dictation Location: [place] [address] Transcribed By: [facility] 02/28/24 1248 Dictated By: Ervin Coon DO 02/28/24 1240 Signed By: 02/28/24 1248 Normal [facility] Coagulation Profileon 2023 aPTT Coag (Bld) [Time] 31.3 s Normal 25.1-36.5 [facility] e [facility] Comment on above: Result Comment: A he matocrit value greater than 55% may lead to inaccurate results in coagulation testing. Patients having hematocrit values >55% require a special collection tube for coagulation studies. Please contact the laboratory at [phone] for redraw instructions. PERFORMED BY: [place] [address] PATHOLOGIST MEAT CARVER WILLI VILLEDA M.D. Performed By: #### P P #### [address] Complete Blood Count Auto Di ffon 02-28-2024 Erythrocyte distribution width (RBC) [Ratio] 13.5 % Normal 12.0-14.8 [facility] Comment on above: Performed By: #### C UBLD #### [address] Hematocrit (Bld) [Volume fraction] 42.4 % Normal 38.8-50.0 [facility] Comment on above: Performed By: #### C UBLD #### [address] Hemoglobin (Bld) [Mass/Vol] 14.4 g/dL Normal 13.0-17.0 [facility] Comment on above: Performed By: #### C UBLD #### [address] MCH (RBC) [Entitic mass] 30.1 pg Normal 27.5-35.2 [facility] Comment on above: Performed By: #### C UBLD #### [address] MCV (RBC) [Entitic vol] 88.4 fL Normal 83.5-101 [facility] Comment on above: Performed By: #### C UBLD #### [facility] [address] Mean Corpuscular HGB Conc 34.0 g/dL Normal 32.5-35.6 [facility] Comment on above: Performed By: #### C UBLD #### [facility] [address] NRBC% 0.1 /100{WBC} Normal 0-0.5 [facility] Comment on above: Performed By: #### C UBLD #### [facility] [address] Platelet mean volume (Bld) [Entitic vol] 6.9 fL Normal 6.6-10.1 [facility] Comment on above: Performed By: #### C UBLD #### [place] [address] [place] Platelets (Bld) [#/Vol] 191 10*3/uL Normal 150-450 [facility] Comment on above: Performed By: #### C UBLD #### [facility] [address] [place] [address] [place] RBC (Bld) [#/Vol] 4.79 10*6/uL Normal 3.90-5.60 [facility] Comment on above: Performed By: #### C UBLD #### [address] Comprehensive Metabolic Pane andrea 02-28-2024 Albumin [Mass/Vol] 3.4 g/dL Low 3.5-5.7 [facility] Comment on above: Performed By: #### C UBLD #### [address] Anion gap [Moles/Vol] 11.3 mmol/L Normal 6.0-15.0 [facility] e [facility] Comment on above: Performed By: #### C UBLD #### [facility] [address] Calcium [Mass/Vol] 8.4 mg/dL Low 8.6-10.3 [facility] Comment on above: Performed By: #### C UBLD #### [place] [address] [place] Chloride [Moles/Vol] 105 mmol/L Normal 98-107 [facility] Comment on above: Performed By: #### C UBLD #### [place] [address] [place] CO2 [Moles/Vol] 28.4 mmol/L Normal 21.0-31.0 [facility] Comment on above: Performed By: #### C UBLD #### [address] Creatinine [Mass/Vol] 1.07 mg/dL Normal 0.70-1.30 [facility] Comment on above: Performed By: #### C UBLD #### [address] Creatinine Clr Calc Pharmacy 79.58 Normal [facility] Comment on above: Performed By: #### C UBLD #### [place] [address] [place] GFR/1.73 sq M.predicted MDRD (S/P/Bld) [Vol rate/Area] mL/min/{1.73_m2} Normal [facility] Comment on above: Performed By: #### C UBLD #### [address] Glucose [Mass/Vol] 92 mg/dL Normal 70-100 [facility] Comment on above: Result Comment: [place] Glucose Reference Range is dependent on time and content of last meal. Glucose of more than 200 mg/dL in a nonstressed, ambulatory subject supports the diagnosis of Diabetes Mellitus. ADA recommended reference range Performed By: #### C UBLD #### [address] Potassium [Moles/Vol] 4.7 mmol/L Normal 3.5-5.1 [facility] Comment on above: Performed By: #### C UBLD #### [address] Sodium [Moles/Vol] 140 mmol/L Normal 136-145 [facility] Comment on above: Performed By: #### C UBLD #### [facility] [address] [place] [id number] [facility] Urea nitrogen [Mass/Vol] 13 mg/dL Normal 7-25 [facility] Comment on above: Performed By: #### C UBLD #### [facility] [address] [id number] [facility] Family Medicine Office/Clini c Noteon 02-28-2024 Family Medicine Office/Clinic Note Family Medicine Office/Clinic Note [employer] [employer] Staff Mily is a 68 year old male presenting with lump on arm He went to [facility] on Tuesday Morning 02/26/24 Txd [...] be muscle, nerve involvement. Called ER at [facility] they will do further work up. [...] cap(s), Oral, Daily, 11 refills Multi Vitamin+ HipSwap cpap machine supplies: head gear, mask, tubing [...] virus vaccine, inactivated 05/14/2022 Recorded SARS-CoV-2 (COVID-19) mRNAMUL.ORD![id number] 05/14/2022 Recorded SARSCoV2 mRNA(kfnonclic-mkxr-jvkzfh ) vac 12/07/2021 Recorded SARS-CoV-2 (COVID-19) mRNA [...] called the ER with the story. Normal [facility] Comment on above: Result Comment: Elec tronically Signed By: Juan J EATON, Burton Rangel.br\Date and Time Signed: 02/28/24 12:58 EDT INR in Platelet poor plasma by Coagulation assayOrdered By: Antony Thompson on 02-28-2024 INR Coag (PPP) [Relative time] 1.1 {INR} [facility] Comment on above: INR Therapeutic Rang [...] 4.5 Performed By: #### P P #### [place] [address] [place] Leukocytes [#/volume] in Blo od by Automated countOrdered By: Antony Thompson on 02-28-2024 WBC (Bld) [#/Vol] 14.5 10*3/uL High 4.1-10.5 [facility] Comment on above: Performed By: #### C UBLD #### [place] [address] [place] Lymphocytes [#/volume] in Bl ood by Automated countOrdered By: Antony Thompson on 02-28-2024 Lymphocytes (Bld) [#/Vol] 3.7 10*3/uL Normal 1.00-4.8 [facility] Comment on above: Performed By: #### C UBLD #### [place] [address] [place] Lymphocytes/100 leukocytes i n Blood by Automated countOrdered By: Antony Thompson on 02-28-2024 Lymphocytes/100 WBC (Bld) 25.2 % Normal . [facility] Comment on above: Performed By: #### C UBLD #### [address] MR humerus RT wo/w conon MR humerus RT wo/w con [facility] [address] [place] [address] MRI Report Signed Patient: Mily Ibrahim MR#: [id number] : 1955 Acct:[id number] Age/Sex: 68 / M ADM Date: 02/27/24 Loc: Room: 9U8766-5 Type: ADM IN Attending Dr: Antony Thompson [...] Ervin Coon M.D.02/28/2024 12:53 PM Dictation Location: [place] [address] Transcribed By: [facility] 02/28/24 1253 Dictated By: Ervin Coon DO 02/28/24 1248 Signed By: 02/28/24 1253 Normal [facility] Magnesiumon 02-28-2024 Magnesium [Mass/Vol] 2.0 mg/dL Normal 1.9-2.7 [facility] Comment on above: Result Comment: PERF ORMED BY: [place] [address] PATHOLOGIST MEAT CARVER WILLI VILLEDA M.D. Performed By: #### C UBLD #### [facility] [address] [place] [address] [place] Neutrophils [#/volume] in Bl ood by Automated countOrdered By: Antony Thompson on 02-28-2024 Neutrophils (Bld) [#/Vol] 9.3 10*3/uL High 1.8-7.7 [facility] Comment on above: Performed By: #### C UBLD #### [facility] [address] [place] [address] [place] Nucleated erythrocytes [Pres ence] in Blood by Automated countOrdered By: Antony Thompson on 02-28-2024 Nucleated RBC Auto Ql (Bld) 0.1 /100{WBC} 0-0.5 [facility] Protein [Mass/volume] in Ser um or PlasmaOrdered By: Antony Thompson on 02-28-2024 Protein [Mass/Vol] 5.6 g/dL Low 6.4-8.9 [facility] Comment on above: Performed By: #### C UBLD #### [address] Prothrombin time (PT)Ordered By: Antony Thompson on 02-28-2024 PT Coag (PPP) [Time] 13.1 s High 9.0-12.9 [facility] Comment on above: A hematocrit value g reater than 55% may lead to inaccurate results in coagulation testing. Patients having hematocrit values >55% require a special collection tube for coagulation studies. Please contact the laboratory at [phone] for redraw instructions. Result Comment: A he matocrit value greater than 55% may lead to inaccurate results in coagulation testing. Patients having hematocrit values >55% require a special collection tube for coagulation studies. Please contact the laboratory at [phone] for redraw instructions. Performed By: #### P P #### [address] Serum globulin measurement b y calculation (mass/volume)Ordered By: Antony Thompson on 02-28-2024 Globulin (S) [Mass/Vol] 2.2 g/dL Normal [facility] Comment on above: Performed By: #### C UBLD #### [address] Serum or plasma albumin/glob ulin mass ratioOrdered By: Antony Thompson on 02-28-2024 Albumin/Globulin [Mass ratio] 1.5 {ratio} [facility] Comment on above: Performed By: #### C UBLD #### [address] XR elbow RT 2Von 02-28-2024 XR elbow RT 2V [facility] [address] [place] [address] XRay Report Signed Patient: Mily Ibrahim MR#: [id number] : 1955 Acct:[id number] Age/Sex: 68 / M ADM Date: 02/27/24 Loc: Room: [id number] Type: ADM IN Attending Dr: Antony Thompson [...] Ronaldo Kenyon M.D.02/28/2024 4:12 PM Dictation Location: [place] [address] Transcribed By: [facility] 02/28/24 1612 Dictated By: Ronaldo Kenyon II, MD 02/28/24 1609 Signed By: 02/28/24 1612 Normal [facility] Ambulatory Visit Summaryon 0 02-27-2024 [...] APRN, Marika Mao Where: [facility] [place] [id number]- Medications What How Much When Why Instructions [...] for choosing us for your care. Normal [facility] Bacterial blood cultureOrder ed By: Antony Thompson on 02-27-2024 Bacteria identified Cx Nom (Bld) NO GROWTH 5 DAYS [facility] Blood Cultureon 02-27-2024 Bacteria identified Cx Nom (Bld) NO GROWTH 5 DAYS PERFORMED BY: [place] [id number] PATHOLOGIST MEAT CARVER WILLI VILLEDA M.D. Normal [facility] Comment on above: Performed By: #### C UBLD #### [facility] [address] Family Medicine Office/Clini c Noteon 02-16-2024 Family Medicine Office/Clinic Note Family Medicine Office/Clinic Note HPI Staff Mily is a 68 year old male presenting for acute visit Acute: lump right arm/elbow, red and swollen, sometimes warm to the touch, He was working on the [employer] and pushed on the area pretty hard [...] day(s), # 40 cap(s), Refills(s) 0, Pharmacy: [facility], 185, cm, 02/16/24 10:23:00 EDT, Height/Length Dosing, 100.5, kg, 02/16/24 10:23:00 EDT, Weight Dosing methylPREDNISolone, = 1 packet(s), Oral, As Directed, as directed on package labeling, X 6 day(s), # 21 tab(s), Refills(s) 0, Pharmacy: [facility], 185, cm, 02/16/24 10:23:00 EDT, Height/Length Dosing, 100.5, kg, 02/16/24 10:23:00 EDT, Weight Dosing 2. BMI 29.0-29.9,adult (Z68.29: Body mass index [BMI] 29.0-29.9, adult) bmi education Ordered: cephalexin, 500 mg = 1 cap(s), Oral, QID, X 10 day(s), # 40 cap(s), Refills(s) 0, Pharmacy: [facility], 185, cm, 02/16/24 10:23:00 EDT, Height/Length Dosing, 100.5, kg, 02/16/24 10:23:00 EDT, Weight Dosing methylPREDNISolone, = 1 packet(s), Oral, As Directed, as directed on package labeling, X 6 day(s), # 21 tab(s), Refills(s) 0, Pharmacy: [facility], 185, cm, 02/16/24 10:23:00 EDT, Height/Length Dosing, 100.5, kg, 02/16/24 10:23:00 EDT, Weight Dosing 3. Over weight (E66.3: Overweight) Ordered: cephalexin, 500 mg = 1 cap(s), Oral, QID, X 10 day(s), # 40 cap(s), Refills(s) 0, Pharmacy: [facility], 185, cm, 02/16/24 10:23:00 EDT, Height/Length Dosing, 100.5, kg, 02/16/24 10:23:00 EDT, Weight Dosing methylPREDNISolone, = 1 packet(s), Oral, As Directed, as directed on package labeling, X 6 day(s), # 21 tab(s), Refills(s) 0, Pharmacy: [facility], 185, cm, 02/16/24 10:23:00 EDT, Height/Length Dosing, 100.5, kg, 02/16/24 10:23:00 EDT, Weight Dosing 4. Nonsmoker (Z78.9: Other specified health status) continue not smoking Ordered: cephalexin, 500 mg = 1 cap(s), Oral, QID, X 10 day(s), # 40 cap(s), Refills(s) 0, Pharmacy: [facility], 185, cm, 02/16/24 10:23:00 EDT, Height/Length Dosing, 100.5, kg, 02/16/24 10:23:00 EDT, Weight Dosing methylPREDNISolone, = 1 packet(s), Oral, As Directed, as directed on package labeling, X 6 day(s), # 21 tab(s), Refills(s) 0, Pharmacy: [facility], 185, cm, 02/16/24 10:23:00 EDT, Height/Length [...] 1 packet(s (more content not included)... Normal [facility] Comment on above: Result Comment: Elec tronically Signed By: Qiana Gayle\.br\Date and Time Signed: 02/16/24 10:58 EDT RAD - MRI Reporton RAD - MRI Report [id number] Normal [facility] ISTAT XRay CREon 01-09-2024 ISTAT GFR > 60.0 Normal [facility] Comment on above: Result Comment: PERF ORMED BY: [place] [address] PATHOLOGIST MEAT CARVER WILLI VILLEDA M.D. Performed By: #### C UBLD #### [address] MR prostate wo/w conon 01-08 MR prostate wo/w con [facility] [address] [place] [address] MRI Report Signed Patient: Mily Ibrahim MR#: [id number] : 1955 Acct:[id number] Age/Sex: 68 / M ADM Date: 01/09/24 Loc: MR Room: Type: [facility] Attending Dr: Marika JURADO Copies to: RHIANNON [...] nonspecific. Impression dictated by: Price Barker Jr., DArnoldoOArnoldo01/09/2024 3:14 PM Dictation Location: [place] [address] Transcribed By: [facility] 01/09/24 1514 Dictated By: Price Barker Jr, DO 01/09/24 1509 Signed By: 01/09/24 1514 Normal [facility] No Panel InformationOrdered By: Marika Fisher on 01-09-2024 Bedside Estimated GFR (eGFR) > 60.0 [facility] Whole blood creatinine measu rementOrdered By: Marika Fisher on 01-09-2024 Creatinine [Mass/Vol] 0.9 mg/dL Normal 0.6-1.3 [facility] Comment on above: ER/ESD physician is notified/shown all ISTAT results.Critical values may be confirmed by laboratory testing ifdeemed necessary by ER attending doctor. Result Comment: ER/E SD physician is notified/shown all ISTAT results. Critical values may be confirmed by laboratory testing if deemed necessary by ER attending doctor. Performed By: #### C UBLD #### [facility] [address] [id number] [facility] Screenson 11-30-2023 Screens [id number] Normal [facility] Screens [id number] Talha Starr [facility] Ambulatory Visit Summaryon 0 11-29-2023 Ambulatory [...] us for your care. Talha Starr [facility] Patient Educationon 11-29-19 Patient Education Oncology Prostate [...] Where to find more information ? The [place] [employer]: www.cancer.org ? [place] [employer]: www.auanet.org Contact a health care [...] (more content not included)... Normal Starr [facility] Urology Office/Clinic Noteon 11-29-2023 Urology Office/Clinic [...] with voice recognition artificial intelligence software, specifically I AND [employer] and or [employer]. Substitutions may have occurred due to the [...] to proceed with MRI. Order faxed to [facility]. Patient instructed that violence will take care of precertification process through insurance and will call him to schedule. -Obtain MRI of prostate. If suspicious lesion is identified, will move forward with prostate biopsy. If negative, will recheck PSA in 6 months. 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 [4] Denies any significant change in stream [...] Prostate Canc (more content not included)... Normal [facility] Comment on above: Result Comment: Elec tronically Signed By: MERRY Fisher APRN, Marika Mao\.br\Date and Time Signed: 11/29/23 08:42 EDT Lab Reportson 11-21-2023 Lab Reports [id number] [facility] Ambulatory Visit Summaryon 0 10-26-2023 Ambulatory Visit Summary MILY IBRAHIM :1955 Visit Date:10/26/2023 Ambulatory Visit Instructions Your Diagnosis BMI 29.0-29.9,adult Your Care Team Attending Physician - Qiana Gayle Primary Care Physician - Qiana Gayle This Is Your Medications List Misc Prescription (HipSwap cpap machine supplies: head gear, mask, tubing [...] APRN, Marika Mao Where: [facility] Family Medicine Office/Clini c Noteon [...] day(s), 14 tab(s), Refill(s) 0, [id number], 185, cm, 10/26/23 8:46:00 EDT, Height/Length Dosing, 100.7, kg, 10/26/23 8:38:00 EDT, Weight Dosing methylPREDNISolone, = 1 packet(s), Oral, Once, as directed on package labeling, # 21 tab(s), Refills(s) 0, Pharmacy: [id number], 185, cm, 10/26/23 8:46:00 EDT, Height/Length Dosing, [...] dosepak, 1 packet(s), Oral, Once Multi Vitamin+ HipSwap cpap machine supplies: head gear, mask, tubing and filters, See Instructions, 1 refills Allergies No Known Medication Allergies Social History Tobacco - Denies Tobacco Use, 06/02/2020 Never (less than 100 in lifetime) Tobacco Use:. Never Smokeless Tobacco Use:. Household tobacco concerns: No., 10/26/2023 Family History Prostate cancer: Grandparent. Throat cancer: Father. Immunizations Vaccine Date Status influenza virus vaccine, inactivated 05/14/2022 Recorded SARS-CoV-2 (COVID-19) mRNAMUL.ORD![id number] 05/14/2022 Recorded SARSCoV2 mRNA(yrtlkjgrq-nlxd-aiyray ) vac 12/07/2021 Recorded SARS-CoV-2 (COVID-19) mRNA BNT-162b2 vax 05/10/2021 Recorded SARS-CoV-2 (COVID-19) Ad26 vaccine 10/18/2020 Recorded SARS-CoV-2 (COVID-19) mRNA BNT-162b2 vax 09/27/2020 Recorded SARS-CoV-2 (COVID-19) Ad26 vaccine 09/02/2020 Recorded pneumococcal 13-valent vaccine 06/05/2020 Recorded influenza virus vaccine, inactivated 06/05/2020 Recorded Normal [facility] Comment on above: Result Comment: Elec tronically Signed By: Qiana Gayle\.br\Date and Time Signed: 10/26/23 09:05 EDT CBC AUTO DIFFon 08-13-2022 BASO # 0.0 103/ul Normal 0.0-0.1 [facility] Comment on above: Performed By: #### C BC #### [facility] [address] [place] [address] Dr. Dorothy Kaur Basophils/100 WBC (Bld) 0.4 % Normal 0.2-2.0 [facility] Comment on above: Performed By: #### C BC #### [facility] [address] [place] [address] Dr. Dorothy Kaur EO # 0.0 103/ul Normal 0.0-0.7 [facility] Comment on above: Performed By: #### C BC #### [facility] [address] [place] [address] Dr. Dorothy Kaur Eosinophils/100 WBC (Bld) 0.1 % Critically low 0.9-7.0 [facility] Comment on above: Performed By: #### C BC #### [facility] [address] [place] [address] Dr. Dorothy Kaur Erythrocyte distribution width (RBC) [Ratio] 13.2 % Normal 11.0-15.0 [facility] Comment on above: Performed By: #### C BC #### [facility] [address] [place] [address] Dr. Dorothy Kaur Hematocrit (Bld) [Volume fraction] 48.8 % Normal 42.0-54.0 [facility] Comment on above: Performed By: #### C BC #### [facility] [address] [place] [address] Dr. Dorothy Kaur Hemoglobin (Bld) [Mass/Vol] 15.4 g/dL Normal 14.0-18.0 [facility] Comment on above: Performed By: #### C BC #### [facility] [address] [place] [address] Dr. Dorothy Kaur IG # 0.05 10e3/ul Critically high 0.00-0.03 [facility] Comment on above: Performed By: #### C BC #### [facility] [address] [place] [address] Dr. Dorothy Kaur IG % 0.6 % Critically high 0.0-0.5 [facility] Comment on above: Performed By: #### C BC #### [facility] [address] [place] [address] Dr. Dorothy Kaur LYMPH # 2.0 103/ul Normal 1.2-3.8 [facility] Comment on above: Performed By: #### C BC #### [facility] [address] [place] [address] Dr. Dorothy Kaur Lymphocytes/100 WBC (Bld) 22.5 % Normal 20.5-60.0 [facility] Comment on above: Performed By: #### C BC #### [facility] [address] [place] [address] Dr. Dorothy Kaur MANUAL DIFF REQ NO Normal [facility] Comment on above: Performed By: #### C BC #### [facility] [address] [place] [address] Dr. Dorothy Kaur MCH (RBC) [Entitic mass] 30.3 pg Normal 25.9-34.0 [facility] Comment on above: Performed By: #### C BC #### [facility] [address] [place] [address] Dr. Dorothy Kaur MCHC (RBC) [Mass/Vol] 31.6 g/dL Normal 29.9-35.2 [facility] Comment on above: Performed By: #### C BC #### [facility] [address] [place] [address] Dr. Dorothy Kaur MCV (RBC) [Entitic vol] 95.9 fL Critically high 80.0-94.0 [facility] Comment on above: Performed By: #### C BC #### [facility] [address] [place] [address] Dr. Dorothy Kaur MONO # 0.9 103/ul Critically high 0.3-0.8 [facility] Comment on above: Performed By: #### C BC #### [facility] [address] [place] [address] Dr. Dorothy Kaur Monocytes/100 WBC (Bld) 9.9 % Normal 1.7-12.0 [facility] Comment on above: Performed By: #### C BC #### [facility] [address] [place] [address] Dr. Dorothy Kaur NEUT # 6.0 103/ul Normal 1.4-6.5 [facility] Comment on above: Performed By: #### C BC #### [facility] [address] [place] [address] Dr. Dorothy Kaur Neutrophils/100 WBC (Bld) 66.5 % Normal 43.0-75.0 [facility] Comment on above: Performed By: #### C BC #### [facility] [address] [place] [address] Dr. Dorothy Kaur Platelet mean volume (Bld) [Entitic vol] 9.4 fL Critically low 9.5-13.5 [facility] Comment on above: Performed By: #### C BC #### [facility] [address] [place] [address] Dr. Dorothy Kaur PLT 148 103/ul Critically low 150-450 [facility] Comment on above: Performed By: #### C BC #### [facility] [address] [place] [address] Dr. Dorothy Kaur RBC 5.09 106/ul Normal 4.70-6.10 [facility] Comment on above: Performed By: #### C BC #### [facility] [address] [place] [address] Dr. Dorothy Kaur WBC 9.0 103/ul Normal 4.0-11.0 [facility] Comment on above: Performed By: #### C BC #### [facility] [address] [place] [address] Dr. Dorothy Kaur CBC AUTO DIFFon 02-16-2022 BASO # 0.0 103/ul Normal 0.0-0.1 [facility] Comment on above: Performed By: #### C BC #### [facility] [address] [place] [address] Dr. Dorothy Kaur Basophils/100 WBC (Bld) 0.5 % Normal 0.2-2.0 [facility] Comment on above: Performed By: #### C BC #### [facility] [address] [place] [address] Dr. Dorothy Kaur EO # 0.0 103/ul Normal 0.0-0.7 [facility] Comment on above: Performed By: #### C BC #### [facility] [address] [place] [address] Dr. Dorothy Kaur Eosinophils/100 WBC (Bld) 0.0 % Critically low 0.9-7.0 [facility] Comment on above: Performed By: #### C BC #### [facility] [address] [place] [address] Dr. Dorothy Kaur Erythrocyte distribution width (RBC) [Ratio] 13.2 % Normal 11.0-15.0 [facility] Comment on above: Performed By: #### C BC #### [facility] [address] [place] [address] Dr. Dorothy Kaur Hematocrit (Bld) [Volume fraction] 44.2 % Normal 42.0-54.0 [facility] Comment on above: Performed By: #### C BC #### [facility] [address] [place] [address] Dr. Dorothy Kaur Hemoglobin (Bld) [Mass/Vol] 15.1 g/dL Normal 14.0-18.0 [facility] Comment on above: Performed By: #### C BC #### [facility] [address] [place] [address] Dr. Dorothy Kaur IG # 0.05 10e3/ul Critically high 0.00-0.03 [facility] Comment on above: Performed By: #### C BC #### [facility] [address] [place] [address] Dr. Dorothy Kaur IG % 0.6 % Critically high 0.0-0.5 [facility] Comment on above: Performed By: #### C BC #### [facility] [address] [place] [address] Dr. Dorothy Kaur LYMPH # 2.8 103/ul Normal 1.2-3.8 [facility] Comment on above: Performed By: #### C BC #### [facility] [address] [place] [address] Dr. Dorothy Kaur Lymphocytes/100 WBC (Bld) 34.6 % Normal 20.5-60.0 [facility] Comment on above: Performed By: #### C BC #### [facility] [address] [place] [address] Dr. Dorothy Kaur MANUAL DIFF REQ NO Normal [facility] Comment on above: Performed By: #### C BC #### [facility] [address] [place] [address] Dr. Dorothy Kaur MCH (RBC) [Entitic mass] 30.2 pg Normal 25.9-34.0 [facility] Comment on above: Performed By: #### C BC #### [facility] [address] [address] [address] Dorothy Kaur MCHC (RBC) [Mass/Vol] 34.2 g/dL Normal 29.9-35.2 [facility] Comment on above: Performed By: #### C BC #### [facility] [address] [place] [address] [address] Dorothy Kaur MCV (RBC) [Entitic vol] 88.4 fL Normal 80.0-94.0 [facility] Comment on above: Performed By: #### C BC #### [facility] [address] [place] [address] Dr. Dorothy Kaur MONO # 0.6 103/ul Normal 0.3-0.8 [facility] Comment on above: Performed By: #### C BC #### [facility] [address] [place] [address] Dr. Dorothy Kaur Monocytes/100 WBC (Bld) 7.9 % Normal 1.7-12.0 [facility] Comment on above: Performed By: #### C BC #### [facility] [address] [place] [address] Dr. Dorothy Kaur NEUT # 4.5 103/ul Normal 1.4-6.5 [facility] Comment on above: Performed By: #### C BC #### [facility] [address] [place] [address] Dr. Dorothy Kaur Neutrophils/100 WBC (Bld) 56.4 % Normal 43.0-75.0 [facility] Comment on above: Performed By: #### C BC #### [facility] [address] [place] [address] Dr. Dorothy Kaur Platelet mean volume (Bld) [Entitic vol] 8.8 fL Critically low 9.5-13.5 [facility] Comment on above: Performed By: #### C BC #### [facility] [address] [place] [address] Dr. Dorothy Kaur PLT 151 103/ul Normal 150-450 [facility] Comment on above: Performed By: #### C BC #### [facility] [address] [place] [address] [address] Dorothy Kaur RBC 5.00 106/ul Normal 4.70-6.10 [facility] Comment on above: Performed By: #### C BC #### [facility] [address] [place] [address] [address] Dorothy Kaur WBC 8.0 103/ul Normal 4.0-11.0 [facility] Comment on above: Performed By: #### C BC #### [facility] [address] [place] [address] Dr. Dorothy Kaur LIPID PROFILEon 02-16-2022 CHOL-HDL RATIO NORM SEE BELOW Normal [facility] Comment on above: Result Comment: 3.3 - 4.4 LOW RISK 4.4 - 7.1 AVERAGE RISK 7.1 - 11.0 MODERATE RISK >11.0 HIGH RISK Performed By: #### C MP, LIPID #### [facility] [address] [place] [address] Dr. Dorothy Kaur Cholesterol [Mass/Vol] 123 mg/dL Normal <=200 [facility] Comment on above: Performed By: #### C MP, LIPID #### [facility] [address] [place] [address] Dr. Dorothy Kaur Cholesterol in HDL [Mass/Vol] 35 mg/dL Critically low 40-60 [facility] Comment on above: Performed By: #### C MP, LIPID #### [facility] [address] [place] [address] Dr. Dorothy Kaur Cholesterol in LDL [Mass/Vol] 73.8 mg/dL Normal [facility] Comment on above: Performed By: #### C MP, LIPID #### [facility] [address] [place] [address] Dr. Dorothy Kaur Cholesterol.total/Chol esterol in HDL [Mass ratio] 3.5 {ratio} Normal [facility] Comment on above: Performed By: #### C MP, LIPID #### [facility] [address] [place] [address] Dr. Dorothy Kaur HDL NORMAL > or = 60 mg/dl - LO W CARDIOVASCULAR RISK <40 mg/dl - HIGH CARDIOVASCULAR RISK Normal [facility] Comment on above: Performed By: #### C MP, LIPID #### [facility] [address] [address] [address] Dorothy Kaur LDL CALC NORMAL SEE BELOW Normal [facility] Comment on above: Result Comment: <100 mg/dl OPTIMAL 100 - 129 mg/dl NEAR OR ABOVE OPTIMAL 130 - 159 mg/dl BORDERLINE HIGH 160 - 189 mg/dl HIGH >190 mg/dl VERY HIGH Performed By: #### C MP, LIPID #### [facility] [address] [address] [address] Dorothy Kaur Triglyceride [Mass/Vol] 71 mg/dL Normal <=150 [facility] Comment on above: Performed By: #### C MP, LIPID #### [facility] [address] [place] [address] Dr. Dorothy Kaur VLDL CALC 14.2 mg/dL Normal [facility] Comment on above: Performed By: #### C MP, LIPID #### [facility] [address] [place] [address] Dr. Dorothy Kaur PROF 14(COMP METB)on 022 Albumin [Mass/Vol] 3.4 g/dL Normal 3.4-5.0 [facility] Comment on above: Performed By: #### C MP, LIPID #### [facility] [address] [place] [address] Dr. Dorothy Kaur Albumin/Globulin [Mass ratio] 1.2 {ratio} Normal [facility] Comment on above: Performed By: #### C MP, LIPID #### [facility] [address] [place] [address] Dr. Dorothy Kaur ALP [Catalytic activity/Vol] 51 U/L Normal 46-116 [facility] Comment on above: Performed By: #### C MP, LIPID #### [facility] [address] [place] [address] Dr. Dorothy Kaur ALT [Catalytic activity/Vol] 30 U/L Normal 16-63 [facility] Comment on above: Performed By: #### C MP, LIPID #### [facility] [address] [address] [address] Dorothy Kaur Anion gap [Moles/Vol] 9.9 mmol/L Normal [facility] Comment on above: Performed By: #### C MP, LIPID #### [facility] [address] [address] [address] Dorothy Kaur AST [Catalytic activity/Vol] 15 U/L Normal 15-37 [facility] Comment on above: Performed By: #### C MP, LIPID #### [facility] [address] [address] [address] Dorothy Kaur Bilirubin [Mass/Vol] 0.7 mg/dL Normal 0.2-1.0 [facility] Comment on above: Performed By: #### C MP, LIPID #### [facility] [address] [address] [address] Dorothy Kaur Calcium [Mass/Vol] 8.3 mg/dL Critically low 8.5-10.1 [facility] Comment on above: Performed By: #### C MP, LIPID #### [facility] [address] [address] [address] Dorothy Kaur Chloride [Moles/Vol] 108 mmol/L Critically high 98-107 [facility] Comment on above: Performed By: #### C MP, LIPID #### [facility] [address] [place] [address] Dr. Dorothy Kaur CO2 [Moles/Vol] 27.2 mmol/L Normal 21.0-32.0 [facility] Comment on above: Performed By: #### C MP, LIPID #### [facility] [address] [address] [address] Dorothy Kaur Creatinine [Mass/Vol] 1.14 mg/dL Normal 0.70-1.30 [facility] Comment on above: Performed By: #### C MP, LIPID #### [facility] [address] [address] [address] Dorothy Kaur EGFR-AF NIGERIAN >60 Normal >=60 [facility] Comment on above: Performed By: #### C MP, LIPID #### [facility] [address] [address] [address] Dorothy Kaur EGFR-NON AF NIGERIAN >60 Normal >=60 [facility] Comment on above: Performed By: #### C MP, LIPID #### [facility] [address] [address] [address] Dorothy Kaur Globulin (S) [Mass/Vol] 2.8 g/dL Normal [facility] Comment on above: Performed By: #### C MP, LIPID #### [facility] [address] [address] [address] Dorothy Kaur Glucose [Mass/Vol] 100 mg/dL Normal 74-106 [facility] Comment on above: Performed By: #### C MP, LIPID #### [facility] [address] [place] [address] Dr. Dorothy Kaur Potassium [Moles/Vol] 4.1 mmol/L Normal 3.5-5.1 [facility] Comment on above: Performed By: #### C MP, LIPID #### [facility] [address] [place] [address] Dr. Dorothy Kaur Protein [Mass/Vol] 6.2 g/dL Critically low 6.4-8.2 Th [facility] Comment on above: Performed By: #### C MP, LIPID #### [facility] [address] [place] [address] Dr. Dorothy Kaur Sodium [Moles/Vol] 141 mmol/L Normal 136-145 [facility] Comment on above: Performed By: #### C MP, LIPID #### [facility] [address] [place] [address] Dr. Dorothy Kaur Urea nitrogen [Mass/Vol] 21.0 mg/dL Critically high 7.0-18.0 [facility] Comment on above: Performed By: #### C MP, LIPID #### [facility] [address] [place] [address] Dr. Dorothy Kaur Urea nitrogen/Creatinine [Mass ratio] 18.4 mg/mg Normal [facility] Comment on above: Performed By: #### C MP, LIPID #### [facility] [address] [address] [address] Dorothy Kaur Vital Signs Date Time Vital Sign Value Performing Clinician Facility 08-21-2024 13:00-0500 Body height 185.4 cm Shannan Box MD Work Phone: 4(083)624-545724 [place] [address] 08-21-2024 13:00-0500 Body mass index (BMI) [Ratio] 30.19 kg/m2 Shannan Box MD Work Phone: 1(951)713-596224 [place] [address] 08-21-2024 13:00-0500 Body temperature 98.4 [degF] Shannan Box MD Work Phone: 9(988)282-630524 [place] [address] 08-21-2024 13:00-0500 Body weight 103.78 kg Shannan Box MD Work Phone: 9(251)074-995224 [place] [address] 08-21-2024 13:00-0500 Diastolic blood pressure 62 mm[Hg] Shannan Box MD Work Phone: 0(168)582-474424 [place] [address] 08-21-2024 13:00-0500 Heart rate 75 /min Shannan Box MD Work Phone: 6(412)888-906124 [place] [address] 08-21-2024 13:00-0500 Respiratory rate 18 /min Shannan Box MD Work Phone: 4(554)184-619224 [place] [address] 08-21-2024 13:00-0500 SaO2% (BldA) [Mass fraction] 96 % Shannan oBx MD Work Phone: 3(645)126-922324 [place] [address] 08-21-2024 13:00-0500 Systolic blood pressure 121 mm[Hg] Shannan Box MD Work Phone: 6(723)192-890224 [place] [address] 05-29-2024 09:18-0400 Body height 185.4 cm Shannan Box MD Work Phone: 4(105)773-213624 [place] [address] 05-29-2024 09:18-0400 Body mass index (BMI) [Ratio] 29.49 kg/m2 Shannan Box MD Work Phone: [facility] 05-29-2024 09:18-0400 Body temperature 98.4 [degF] Shannan Box MD Work Phone: [facility] 05-29-2024 09:18-0400 Body weight 101.38 kg Shannan Box MD Work Phone: [facility] 05-29-2024 09:18-0400 Diastolic blood pressure 72 mm[Hg] Shannan Box MD Work Phone: [facility] 05-29-2024 09:18-0400 Heart rate 76 /min Shannan Box MD Work Phone: [facility] 05-29-2024 09:18-0400 Respiratory rate 16 /min Shannan Box MD Work Phone: [facility] 05-29-2024 09:18-0400 SaO2% (BldA) [Mass fraction] 94 % Shannan Box MD Work Phone: [facility] 05-29-2024 09:18-0400 Systolic blood pressure 120 mm[Hg] Shannan Box MD Work Phone: [facility] 05-10-2024 08:47-0400 Body temperature 97.7 [degF] Qiana Thai GUEST ROOM INSPECTOR-C Work Phone: [facility] 05-10-2024 08:47-0400 Body weight 101.15 kg Qiana Thai GUEST ROOM INSPECTOR-C Work Phone: [facility] 05-10-2024 08:47-0400 Diastolic blood pressure 83 mm[Hg] Qiana Thai GUEST ROOM INSPECTOR-C Work Phone: [facility] 05-10-2024 08:47-0400 Heart rate 72 /min Qiana Thai GUEST ROOM INSPECTOR-C Work Phone: [facility] 05-10-2024 08:47-0400 Respiratory rate 6 /min Qiana Thai GUEST ROOM INSPECTOR-C Work Phone: [facility] 05-10-2024 08:47-0400 SaO2% (BldA) [Mass fraction] 99 % Qiana Thai GUEST ROOM INSPECTOR-C Work Phone: [facility] 05-10-2024 08:47-0400 Systolic blood pressure 125 mm[Hg] Qiana Thai GUEST ROOM INSPECTOR-C Work Phone: [facility] 05-03-2024 10:50-0400 Body temperature 97.5 [degF] Qiana Thai GUEST ROOM INSPECTOR-C Work Phone: [facility] 05-03-2024 10:50-0400 Diastolic blood pressure 73 mm[Hg] Qiana Thai GUEST ROOM INSPECTOR-C Work Phone: [facility] 05-03-2024 10:50-0400 Heart rate 83 /min Qiana Thai GUEST ROOM INSPECTOR-C Work Phone: [facility] 05-03-2024 10:50-0400 Respiratory rate 16 /min Qiaan Thai GUEST ROOM INSPECTOR-C Work Phone: [facility] 05-03-2024 10:50-0400 SaO2% (BldA) [Mass fraction] 97 % Qiana Thai GUEST ROOM INSPECTOR-C Work Phone: [facility] 05-03-2024 10:50-0400 Systolic blood pressure 114 mm[Hg] Qiana Thai GUEST ROOM INSPECTOR-C Work Phone: [facility] 04-24-2024 08:14-0400 Blood Pressure Location Marika Orzech [facility] 04-24-2024 08:14-0400 Diastolic blood pressure 78 mm[Hg] Marika Orzech [facility] 04-24-2024 08:14-0400 Heart rate 77 /min Marika Orzech [facility] 04-24-2024 08:14-0400 Respiratory rate 16 /min Marika Orzech [facility] 04-24-2024 08:14-0400 Systolic blood pressure 126 mm[Hg] Marika Orzech [facility] 04-20-2024 12:05-0400 Diastolic blood pressure 94 mm[Hg] DO Antony Thompson Work Phone: [facility] 04-20-2024 12:05-0400 Heart rate 67 /min DO Antony Thompson Work Phone: [facility] 04-20-2024 12:05-0400 Respiratory rate 16 /min DO Antony Thompson Work Phone: [facility] 04-20-2024 12:05-0400 SaO2% (BldA) [Mass fraction] 98 % DO Antony Thompson Work Phone: [facility] 04-20-2024 12:05-0400 Systolic blood pressure 143 mm[Hg] DO Antony Thompson Work Phone: [facility] 04-20-2024 11:10-0400 Body temperature 97.8 [degF] DO Antony Thompson Work Phone: [facility] 04-20-2024 10:45-0400 Inhaled oxygen flow rate 0 L/min DO Antony Thompson Work Phone: [facility] 04-20-2024 07:32-0400 Body height 185.42 cm DO Antony Thompson Work Phone: [facility] 04-20-2024 07:32-0400 Body weight 99 kg DO Antony Thompson Work Phone: [facility] 04-16-2024 09:20-0400 Body height 185.4 cm Jered De Leon MD Work Phone: [facility] 04-16-2024 09:20-0400 Body mass index (BMI) [Ratio] 27.71 kg/m2 Jered De Leon MD Work Phone: [facility] 04-16-2024 09:20-0400 Body weight 95.25 kg Jered De Leon MD Work Phone: [facility] 04-16-2024 09:20-0400 Diastolic blood pressure 68 mm[Hg] Jered De Leon MD Work Phone: [facility] 04-16-2024 09:20-0400 Systolic blood pressure 120 mm[Hg] Jered De Leon MD Work Phone: [facility] 04-12-2024 10:52-0400 Body height 185.42 cm DO Antony Thompson Work Phone: [facility] 04-12-2024 10:52-0400 Body mass index (BMI) [Ratio] 28.8 kg/m2 DO Antony Thompson Work Phone: [facility] 04-12-2024 10:52-0400 Body temperature 97.9 [degF] DO Antony Thompson Work Phone: [facility] 04-12-2024 10:52-0400 Body weight 99.33 kg DO Antony Thompson Work Phone: [facility] 04-12-2024 10:52-0400 Diastolic blood pressure 82 mm[Hg] DO Antony Thompson Work Phone: [facility] 04-12-2024 10:52-0400 Heart rate 66 /min DO Antony Thompson Work Phone: [facility] 04-12-2024 10:52-0400 Respiratory rate 16 /min DO Antony Thompson Work Phone: [facility] 04-12-2024 10:52-0400 SaO2% (BldA) [Mass fraction] 97 % DO Antony Thompson Work Phone: [facility] 04-12-2024 10:52-0400 Systolic blood pressure 135 mm[Hg] DO Antony Thompson Work Phone: [facility] 03-29-2024 13:58-0400 Body height 185.42 cm DO Antony Thompson Work Phone: [facility] 03-29-2024 13:58-0400 Body mass index (BMI) [Ratio] 29 kg/m2 DO Antony Thompson Work Phone: [facility] 03-29-2024 13:58-0400 Body temperature 97.5 [degF] DO Antony Thompson Work Phone: [facility] 03-29-2024 13:58-0400 Body weight 99.79 kg DO Antony Thompson Work Phone: [facility] 03-29-2024 13:58-0400 Diastolic blood pressure 82 mm[Hg] DO Antony Thompson Work Phone: [facility] 03-29-2024 13:58-0400 Heart rate 73 /min DO Antony Thompson Work Phone: [facility] 03-29-2024 13:58-0400 Respiratory rate 16 /min DO Antony Thompson Work Phone: [facility] 03-29-2024 13:58-0400 SaO2% (BldA) [Mass fraction] 97 % DO Antony Thompson Work Phone: [facility] 03-29-2024 13:58-0400 Systolic blood pressure 138 mm[Hg] DO Antony Thompson Work Phone: [facility] 03-01-2024 15:12-0400 Body temperature 98 [degF] AEROBICS INSTRUCTOR-BC Marika Orzech Work Phone: [facility] 03-01-2024 15:12-0400 Diastolic blood pressure 60 mm[Hg] AEROBICS INSTRUCTOR-BC Marika Orzech Work Phone: [facility] 03-01-2024 15:12-0400 Heart rate 71 /min AEROBICS INSTRUCTOR-BC Marika Orzech Work Phone: [facility] 03-01-2024 15:12-0400 Respiratory rate 15 /min AEROBICS INSTRUCTOR-BC Marika Orzech Work Phone: [facility] 03-01-2024 15:12-0400 SaO2% (BldA) [Mass fraction] 96 % AEROBICS INSTRUCTOR- Marika Orzech Work Phone: [facility] 03-01-2024 15:12-0400 Systolic blood pressure 104 mm[Hg] AEROBICS INSTRUCTOR-BC Marika Orzech Work Phone: [facility] 03-01-2024 12:25-0400 Body height 185.42 cm AEROBICS INSTRUCTOR- Marika Orzech Work Phone: [facility] 03-01-2024 05:26-0400 Body weight 99.5 kg AEROBICS INSTRUCTOR- Marika Orzech Work Phone: [facility] 02-29-2024 16:54-0400 Inhaled oxygen flow rate 8 L/min AEROBICS INSTRUCTOR-BC Marika Orzech Work Phone: [facility] 02-29-2024 14:02-0400 Body mass index (BMI) [Ratio] 28.8 kg/m2 AEROBICS INSTRUCTOR-BC Marika Orzech Work Phone: [facility] 02-27-2024 23:45-0400 Inhaled oxygen concentration 30 % AEROBICS INSTRUCTOR-BC Marika Orzech Work Phone: [facility] 02-26-2024 09:10-0400 Body height 185.42 cm AEROBICS INSTRUCTOR-BC Marika Orzech Work Phone: [facility] 02-26-2024 09:10-0400 Body mass index (BMI) [Ratio] 28.8 kg/m2 AEROBICS INSTRUCTOR-BC Marika Orzech Work Phone: [facility] 02-26-2024 09:10-0400 Body temperature 98 [degF] AEROBICS INSTRUCTOR-BC Marika Orzech Work Phone: [facility] 02-26-2024 09:10-0400 Body weight 99.33 kg AEROBICS INSTRUCTOR-BC Marika Orzech Work Phone: [facility] 02-26-2024 09:10-0400 Diastolic blood pressure 71 mm[Hg] AEROBICS INSTRUCTOR-BC Marika Orzech Work Phone: [facility] 02-26-2024 09:10-0400 Heart rate 82 /min AEROBICS INSTRUCTOR-BC Marika Orzech Work Phone: [facility] 02-26-2024 09:10-0400 Respiratory rate 16 /min AEROBICS INSTRUCTOR-BC Marika Orzech Work Phone: [facility] 02-26-2024 09:10-0400 SaO2% (BldA) [Mass fraction] 96 % AEROBICS INSTRUCTOR-BC Marika Orzech Work Phone: [facility] 02-26-2024 09:10-0400 Systolic blood pressure 111 mm[Hg] AEROBICS INSTRUCTOR-BC Marika Orzech Work Phone: [facility] 01-07-2024 10:44-0400 Body height 185.42 cm AEROBICS INSTRUCTOR-BC Marika Orzech Work Phone: [facility] 01-07-2024 10:44-0400 Body weight 99.79 kg AEROBICS INSTRUCTOR-BC Marika Orzech Work Phone: [facility] 11-29-2023 08:07-0400 Diastolic blood pressure 72 mm[Hg] Marika Orzech [facility] 11-29-2023 08:07-0400 Heart rate 75 /min Marika Orzech [facility] 11-29-2023 08:07-0400 Respiratory rate 16 /min Marika Orzech [facility] 11-29-2023 08:07-0400 Systolic blood pressure 117 mm[Hg] Marika Orzech [facility] 09-05-2023 15:25-0500 Body height 185.42 cm Anjelica Ganga Other [employer] Other 09-05-2023 15:25-0500 Body mass index (BMI) [Ratio] 29.02 kg/m2 Anjelica Ganga Other [employer] Other 09-05-2023 15:25-0500 Body temperature 98.4 [degF] Anjelica Ganga Other [employer] Other 09-05-2023 15:25-0500 Body weight 99.79 kg Anjelica Ganga Other [employer] Other 09-05-2023 15:25-0500 Diastolic blood pressure 76 mm[Hg] Anjelica Ganga Other [employer] Other 09-05-2023 15:25-0500 Respiratory rate 16 /min Anjelica Ganga Other [employer] Other 09-05-2023 15:25-0500 SaO2% (BldA) [Mass fraction] 97 % Anjelica Ganga Other [facility] [employer] Other 09-05-2023 15:25-0500 Systolic blood pressure 133 mm[Hg] Anjelica Schuler Other [facility] [employer] Other 12-31-2022 10:47-0400 Diastolic blood pressure 65 mm[Hg] MD Fuad Sunshine Work Phone: [facility] 12-31-2022 10:47-0400 Heart rate 62 /min MD Fuad Sunshine Work Phone: [facility] 12-31-2022 10:47-0400 Respiratory rate 16 /min MD Fuad Sunshine Work Phone: [facility] 12-31-2022 10:47-0400 SaO2% (BldA) [Mass fraction] 95 % MD Fuad Sunshine Work Phone: [facility] 12-31-2022 10:47-0400 Systolic blood pressure 102 mm[Hg] MD Fuad Sunshine Work Phone: [facility] 12-31-2022 09:17-0400 Body height 185.42 cm MD Fuad Sunshine Work Phone: [facility] 12-31-2022 09:17-0400 Body temperature 98 [degF] MD Fuad Sunshine Work Phone: [facility] 12-31-2022 09:17-0400 Body weight 97.52 kg MD Fuad Sunshine Work Phone: [facility] 11-24-2022 08:43-0400 Blood Pressure Location Kassidy Lue [facility] 11-24-2022 08:43-0400 Diastolic blood pressure 71 mm[Hg] Kassidy Lue [facility] 11-24-2022 08:43-0400 Heart rate 67 /min Kassidy Lue [facility] 11-24-2022 08:43-0400 Systolic blood pressure 118 mm[Hg] Kassidy Cunningham [facility] 11-30-2021 08:10-0400 Blood Pressure Location Annette Parker Jr. [facility] 11-30-2021 08:10-0400 Diastolic blood pressure 85 mm[Hg] Annette Parker Jr. [facility] 11-30-2021 08:10-0400 Heart rate 75 /min Annette Parker Jr. [facility] 11-30-2021 08:10-0400 Systolic blood pressure 131 mm[Hg] Annette Parker Jr. [facility] Encounters Encounter Date Encounter Type Care Provider Facility Start: 08-21-2024 End: 08-21-2024 Office outpatient visit 25 minutes Shannan Box MD Work Phone: Division of [facility]ology [facility] Comment on above: CLL (chronic lymphoc ytic leukemia) (Primary Dx) Start: 08-21-2024 ambulatory QIANA ANDRE Facility:[facility] Start: 07-20-2024 End: 07-20-2024 ambulatory Qiana Andre Facility:[facility] Start: 06-11-2024 End: 06-11-2024 Departed Referred Qiana Andre GUEST ROOM INSPECTOR-C Work Phone: [facility] [place] [facility] Start: 06-11-2024 End: 06-11-2024 ambulatory Qiana Andre GUEST ROOM INSPECTOR-C Work Phone: [facility] Work Phone: Start: 05-29-2024 End: 05-29-2024 Office consultation new/estab patient 80 min Shannan Box MD Work Phone: [facility] of [facility]ology & Oncology at [facility] Comment on above: Cutaneous B-cell lym phoma (Primary Dx); CLL (chronic lymphocytic leukemia); Genetic anomalies of leukocytes Start: 05-29-2024 ambulatory MARIA INES AHNLEY Facility:[facility] Start: 05-10-2024 Registered Recurring Qiana cota GUEST ROOM INSPECTOR-C Work Phone: [facility] Work Phone: Start: 05-10-2024 ambulatory Enoch Han Facility :[facility] Start: 05-10-2024 End: 05-10-2024 Patient encounter procedure Qiana Andre GUEST ROOM INSPECTOR-C Work Phone: [facility] Amb[facility] Work Phone: Start: 05-03-2024 End: 05-03-2024 Patient encounter procedure Qiana Andre GUEST ROOM INSPECTOR-C Work Phone: [facility] Work Phone: Start: 04-30-2024 End: 04-30-2024 Postop follow up visit related to original px Jered Leon MD Work Phone: [facility] Comment on above: 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 Start: 04-24-2024 End: 04-24-2024 Patient encounter procedure Marika X Orzech [facility] Start: 04-20-2024 End: 04-20-2024 Admission to same day surgery center DO Antony Thompson Work Phone: [facility] [place] Start: 04-20-2024 End: 04-20-2024 ambulatory DO Antony Thompson Work Phone: [facility] Work Phone: Start: 04-17-2024 End: 04-17-2024 Departed Referred Qiana Andre GUEST ROOM INSPECTOR-C Work Phone: [facility]Pre[facility]Surgical Testing Work Phone: Start: 04-17-2024 End: 04-17-2024 Patient encounter procedure DO Antony Thompson Work Phone: [facility] Work Phone: Start: 04-17-2024 End: 04-17-2024 ambulatory DO Antony [place] Thompson Work Phone: [facility] Work Phone: Start: 04-16-2024 End: 04-16-2024 ambulatory JERED LEON V Not Available Start: 04-16-2024 End: 04-16-2024 Office outpatient new 45 minutes Jered Leon MD Work Phone: [facility] Comment on above: Inguinal adenopathy (Primary Dx); Cutaneous B-cell lymphoma (CMS/HCC) Start: 04-12-2024 End: 04-12-2024 Patient encounter procedure DO Antony Thompson Work Phone: [facility] Work Phone: Start: 04-12-2024 Registered Recurring DO Antony Thompson Work Phone: [facility] Acute Work Phone: Start: [...] [facility] External Department Unsolicited Start: 03-29-2024 End: 03-29-2024 Patient encounter procedure DO Antony Thompson Work Phone: [facility] Work Phone: Start: 03-19-2024 End: 03-19-2024 Patient encounter procedure DO Antony Thompson Work Phone: [facility] Work Phone: Start: 03-02-2024 End: 03-02-2024 ambulatory Qiana L Thai Facility: [facility] Start: 03-02-2024 End: 04-04-2024 ambulatory Qiana L Thai Facility:CD:[id number] Start: 02-28-2024 Non-patient / Non-visit AEROBICS INSTRUCTOR-BC Marika Orzech Work Phone: [facility] Work Phone: Start: 02-27-2024 End: 03-01-2024 Evaluation and management of inpatient AEROBICS INSTRUCTOR-BC Marika Orzech Work Phone: [facility] Work Phone: Start: 02-27-2024 End: 02-27-2024 ambulatory Qiana L Thai Facility:[facility] Start: 02-26-2024 End: 02-26-2024 Patient encounter procedure AEROBICS INSTRUCTOR-BC Marika Orzech Work Phone: [facility] Work Phone: Start: 02-16-2024 End: 02-16-2024 ambulatory Qiana L Thai Facility:[facility] Start: 01-09-2024 End: 01-09-2024 Patient encounter procedure AEROBICS INSTRUCTOR-BC Marika Orzech Work Phone: [facility] Work Phone: Start: 01-09-2024 End: 01-09-2024 ambulatory NON STAFF [facility] Work Phone: Start: 11-29-2023 End: 11-29-2023 ambulatory Marika X Orzech Facility:[facility] Start: 11-29-2023 End: 11-29-2023 Patient encounter procedure Marika X Orzech [facility] Start: 10-26-2023 End: 10-26-2023 ambulatory Qiana L Thai Facility:[facility] Start: 09-05-2023 End: 09-05-2023 ambulatory Anjelica Ganga Other fflick Other Start: 09-05-2023 Office outpatient vi sit 15 minutes Anjelica Ganga [facility] Start: 12-31-2022 End: 12-31-2022 Admission to same day surgery center MD Fuad Sunshine Work Phone: [facility] Work Phone: Start: 12-31-2022 End: 12-31-2022 ambulatory MD Fuad Sunshine Work Phone: [facility] Work Phone: Start: 11-24-2022 End: 11-24-2022 Patient encounter procedure Kassidy Cunningham [facility] Start: 10-02-2022 End: 10-03-[address] FUAD SUNSHINE . Facility:[facility]1 Start: 08-13-2022 End: 08-14-[address] FUAD SUNSHINE . Facility:[facility] Start: 03-09-2022 End: 03-09-2022 Patient encounter procedure MD Fuad Sunshine Work Phone: [facility] Start: 02-16-2022 End: 02-17-[address] FUAD SUNSHINE . Facility:[facility] Start: 11-30-2021 End: 11-30-2021 Patient encounter procedure Annette Parker Jr. [facility] Start: 11-27-2021 End: 11-28-[address] FUAD SUNSHINE . Facility: Procedures Date Procedure Procedure Detail Performing Clinician Start: 08-21-2024 CBC AND ELECTRONIC DIFF Neeru Dameon Jimenez METHODS ANALYST DATA PROCESSING-INFANT ROOM TEACHER Work Phone: Start: 08-21-2024 Complete blood count with white cell differential, automated Neeru Dameon RodriguezJimenez METHODS ANALYST DATA PROCESSING-INFANT ROOM TEACHER Work Phone: Start: 08-21-2024 Comprehensive metabo lic panel Neerugenaro Rodriguezman METHODS ANALYST DATA PROCESSING-INFANT ROOM TEACHER Work Phone: Start: 08-21-2024 EXTRA LAVENDER TOP Cori nne N Jimenez METHODS ANALYST DATA PROCESSING-INFANT ROOM TEACHER Work Phone: Start: 08-21-2024 EXTRA TUBES Neeru N Jimenez METHODS ANALYST DATA PROCESSING-INFANT ROOM TEACHER Work Phone: Start: 05-29-2024 Beta-2 microglobulin Se jessica Ana Box MD Work Phone: Start: 05-29-2024 CBC [...] IGVH MUTATION ANALYS IS (SOMATIC HYPERMUTATION), BLOOD, SOFTWARE TECHNICAL LEAD Shannan Box MD Work Phone: Start: 05-29-2024 Molecule isolate nucleic Shannan Box MD Work Phone: Start: 05-29-2024 RNA EXTRACTION Shannan Box MD Work Phone: Start: 04-20-2024 Excision of cyst DO Dayne alberto Jay Work Phone: Start: 04-04-2024 Positron emission to mography with computed tomography DO Antony Thompson Work Phone: Start: 04-04-2024 GLUCOSE POCT GLUCOMETERS Maria Ines Hanley MD Work Phone: Start: 03-29-2024 Assay of haptoglobin quantitative Maria Ines Hanley MD Work Phone: Start: 03-29-2024 Complete blood count with white cell differential, automated Maria Ines Hanley MD Work Phone: Start: 02-29-2024 Procedure on lower extremity AEROBICS INSTRUCTOR-BC Marika Orzech Work Phone: Start: 02-29-2024 Investigation of tra nsfusion reaction AEROBICS INSTRUCTOR-BC Marika Orzech Work Phone: Start: 02-28-2024 MRI of right humerus with contrast AEROBICS INSTRUCTOR-BC Marika Orzech Work Phone: Start: 02-28-2024 Plain X-ray of right elbow AEROBICS INSTRUCTOR-BC Marika Orzech Work Phone: Start: 02-28-2024 CT of right humerus with contrast AEROBICS INSTRUCTOR-BC Marika Orzech Work Phone: Start: 02-27-2024 Blood [...] above: Performed By: #### P SAD #### [facility] [address] [place] [address] Dr. Dorothy Kaur Start: 08-13-[address] FUAD PAEZ . Comment on above: Performed By: #### P SAD #### [facility] [address] [place] [address] Dr. Dorothy Kaur Start: 03-09-2022 X-ray of left foot MD Hugo Sunshine Work Phone: Start: 11-27-[address] FUAD PAEZ . Comment on above: Performed By: #### P SAD #### [facility] [address] [place] [address] Dr. Dorothy Kaur Start: 06-02-2020 Cystoscopy Annette carnes Jr. Start: 06-07-2018 Ultrasonography by transrectal approach Annette Parker Jr. Start: 01-05-2016 Cystoscopy Annette carnes Jr. Start: 03-08-2011 Transrectal biopsy o f prostate using ultrasound guidance Annette Parker Jr. Tonsillectomy Annette oglesby Plan of Treatment Date Care Activity Detail Author Start: 01-13-2033 Screening for malign ant neoplasm of colon [facility] Start: 12-04-2024 End: 12-04-2024 Patient encounter procedure 12/04/2024 10:00 AM EDT Office Visit Division of Hematology & Oncology at [facility] [address] [place] [id number] Shannan Box MD [address] [place] [address] Division of Hematology & Oncology at [facility] Start: 11-16-2024 End: 11-16-2024 Patient encounter procedure 11/16/2024 11:00 AM EDT Office Visit [facility] [address] [place] [id number] [facility] Start: 10-24-2024 ambulatory Ambulatory Facility:[facility] Start: 07-24-2024 Zoster vaccine hzv l vikas for subcutaneous use ZOSTER (SHINGLES) VACCINE (2 of 2) [facility] Start: 05-29-2024 End: 05-29-2025 Cytogenetic procedure [facility] Comment on above: Expected: 05/29/2024 , Expires: 05/29/2025 Start: 04-20-2024 End: 04-20-2024 [facility] Start: 04-12-2024 Patient referral [facility] Work Phone: Start: 04-01-2024 COVID-19 VACCINE ( season) COVID-19 VACCINE ( season) [facility] Start: 04-01-2024 Influenza vaccination INFLUENZA VACC INE (#1) [facility] Start: 03-01-2024 [facility] Start: 02-29-2024 End: 02-29-2024 [facility] Start: 02-28-2024 Consultation [facility] Start: 02-27-2024 Hospital admission [facility] Start: 02-27-2024 Blood culture for bacteria, including anaerobic screen Blood Culture [facility] Start: 02-27-2024 Drainage of Right Up per Arm Subcutaneous Tissue and Fascia, Open Approach Drainage of Right Upper Arm Subcutaneous Tissue and Fascia, Open Approach [facility] Start: 02-27-2024 Excision of Right Up per Arm Subcutaneous Tissue and Fascia, Open Approach, Diagnostic Excision of Right Upper Arm Subcutaneous Tissue and Fascia, Open Approach, Diagnostic [facility] Start: 12-31-2022 [facility] Start: 06-05-2021 Pneumococcal Vaccine : 65+ Years (2 of 2 - PPSV23 or PCV20) Pneumococcal Vaccine: 65+ Years (2 of 2 - PPSV23 or PCV20) [facility] Start: 07-31-2020 Pneumococcal vaccination PNEUM OCOCCAL VACCINE SERIES (2 of 2 - PPSV23 or PCV20) [facility] Start: 2018 Abdominal aortic aneurysm screening ABDOMINAL AORTIC ANEURYSM HIGH RISK SCREEN [facility] Start: 2013 RSV VACCINE (1 - 1-d ose 60+ series) RSV VACCINE (1 - 1-dose 60+ series) [facility] Start: 11-27-2003 Prostate specific antigen measurement PROSTATE CANCER SCREENING DISCUSSION [facility] Start: 1998 Screening for malign ant neoplasm of colon COLORECTAL CANCER SCREENING DISCUSSION [facility] Start: 1993 Lipid panel LIPID SCREENING [facility] Start: 1972 Third diphtheria, tetanus and acellular pertussis (DTaP) vaccination TDAP (ADULT) [facility] Start: 1972 Zoster vaccine hzv l vikas for subcutaneous use ZOSTER (SHINGLES) VACCINE (1 of 2) [facility] Start: 1953 Hepatitis C screening HEPATITI S C VIRUS SCREENING [facility] Start: 1955 Screening for malign ant neoplasm of colon [facility] Start: 1953 Tetanus vaccination TETANUS [facility] CG 14Q32.3-11Q13 (IGH-CCND1) CG 14Q32.3-11Q13 (IGH-CCND1) Lab Routine CLL (chronic lymphocytic leukemia) Genetic anomalies of leukocytes 05/29/2024 10:51 AM EDT [facility] CG CULTURE CG CULTURE Lab R outine CLL (chronic lymphocytic leukemia) Genetic anomalies of leukocytes 05/29/2024 10:51 AM EDT [facility] CLL EXTENDED FISH PANEL CLL EXTE NDED FISH PANEL Lab Routine CLL (chronic lymphocytic leukemia) Genetic anomalies of leukocytes 05/29/2024 10:51 AM EDT [facility] CYTOGENETIC STUDIES (PERFORMABLE) CYTOGENETIC STUDIES (PERFORMABLE) Lab Routine CLL (chronic lymphocytic leukemia) Genetic anomalies of leukocytes 05/29/2024 10:51 AM EDT [facility] FISH STUDIES FISH STUDIES Lab Routine CLL (chronic lymphocytic leukemia) Genetic anomalies of leukocytes 05/29/2024 10:51 AM EDT [facility] IMMUNOGLOBULINS A/G/ M, QN, SER IMMUNOGLOBULINS A/G/M, QN, SER Lab Routine 03/29/2024 3:21 PM EDT [facility] Work Phone: Patient Education [facility] Work Phone: Patient referral [facility] Work Phone: Immunizations Immunization Date Immunization Notes Care Provider [facility] 05-29-2024 zoster vaccine, unspecified formulation Shannan Box MD Work Phone: [facility] 05-14-2022 influenza virus vaccine, unspecified formulation Kassidy Cunningham [facility] 05-14-2022 Influenza, High-dose Seasonal, Quadrivalent, Preservative Free Shannan Box MD Work Phone: [facility] 05-14-2022 SARS-CoV-2 (COVID-19 ) [id number] Kassidy Cunningham [facility] 12-07-2021 SARS-CoV-2 mRNA (kinmysdoptd-ifie-xohsd se) vaccine Kassidy Cunningham [facility] 05-10-2021 SARS-CoV-2 (COVID-19 ) mRNA BNT-162b2 vax Kassidy Cunningham [facility] 10-18-2020 SARS-CoV-2 (COVID-19 ) Ad26 vaccine, recombinant Annette Parker Jr. [facility] 09-27-2020 SARS-CoV-2 (COVID-19 ) mRNA BNT-162b2 vax Kassidy Lutai [facility] 09-02-2020 SARS-CoV-2 (COVID-19 ) Ad26 vaccine, recombinant Annette Parker Jr. [facility] 06-05-2020 influenza virus vaccine, unspecified formulation Kassidy Teresatai [facility] 06-05-2020 influenza, injectabl e, quadrivalent, preservative free Shannan Box MD Work Phone: [facility] 06-05-2020 pneumococcal conjuga te vaccine, 13 valent Kassidy Teresatai [facility] Payers Date Payer Category Payer Managed Care O (unspecified) [employer] A[employer]NA [id number] 2024-Present [address] [place], [place] [address] O [id number] 2023 Self-pay [id number] 2021 Unknown GENERIC PAYOR ME DICARE SUPPLEMENT [id number] 2021-Present [phone] [address] [address] [place] [address] [id number] 2018 Medicare [id number] 1959 Medicare [id number] 1959 Private Health Insurance CLI [id number] 1953 Unknown [id number] 2.16.840.1.888736.3.579 .2.593 1953 Unknown [id number] 2.16.840.1.127670.3.579 .2.593 1953 Unknown [id number] 2.840.1.833538.3.579 .2.593 1953 Unknown [id number] 2.16.840.1.323526.3.579 .2.593 1953 Unknown [id number] 2.16.840.1.955037.3.579 .2.1259 1953 Unknown [id number] 2.16.840.1.983821.3.579 .2.1259 1953 Unknown [id number] 2.16.840.1.011868.3.579 .2.594 1953 Unknown [id number] 2.16.840.1.315184.3.579 .2.594 1953 Unknown [id number] 2.16.840.1.474502.3.579 .2.727 1953 Unknown [id number] 2.16.840.1.636126.3.579 .2.727 1953 Unknown [id number] 2.16.840.1.167777.3.579 .2.727 1953 Unknown [id number] 2.16.840.1.785221.3.579 .2.727 1953 Unknown [id number] 2.16.840.1.655875.3.579 .2.727 1953 Unknown [id number] 2.16.840.1.473925.3.579 .2.727 1953 Unknown [id number] 2.16.840.1.232448.3.579 .2.727 1953 Unknown [id number] 2.16.840.1.766803.3.579 .2.727 Unknown [id number] [address] [facility] [id number] Unknown [id number] 2.16.840.1.134864.3.579 .2.531 Unknown [id number] 2.16.840.1.261791.3.579 .2.531 Unknown [id number] 2.16.840.1.400781.3.579 .2.531 Unknown [id number] 2.16.840.1.936900.3.579 .2.531 Unknown [id number] 2.16.840.1.511858.3.579 .2.531 Unknown [id number] 2.16.840.1.579245.3.579 .2.531 Worker's Compensation [facility] [id number] Social History Date Type Detail Facility Start: 06-03-2021 End: 04-16-2024 Tobacco smoking status Never smoked tobacco (finding) [facility] Start: 05-29-2024 End: 08-21-2024 Sex Assigned At Male [facility] Start: 1955 Sex Assigned At Male [facility] Tobacco smoking status Smokeless tobacco user within last 30 days [facility] Tobacco smoking stat us NHIS Tobacco smoking consumption unknown [facility] Start: 05-29-2024 End: 08-21-2024 History of Social function [facility] Start: 1955 Sex assigned at Not on file [facility] Start: 06-12-2024 Sex Patient sex unknown (finding) [facility] Start: 04-16-2024 Tobacco use and exposure Smokeless tobacco non-user [facility] Start: 04-16-2024 End: 04-30-2024 Alcoholic beverage intake Current drinker of alcohol (finding) [facility] Start: 04-16-2024 Alcohol Comment Alcohol occasional- Caffiene 1 time per day [facility] Start: 08-21-2024 Gender identity Identifies as male gender (finding) [facility] Start: 08-21-2024 Sexual orientation Heterosexual (finding) [facility] Goals Date Patient Goal Desired Activity /State Functional Status Date Assessment Result Facility 04-24-2024 Functional Status N/A [facility] 03-01-2024 Functional status Patient is Pro gressing Toward [facility] Work Phone: 11-29-2023 Functional Status N/A [facility] 11-24-2022 Functional Status N/A [facility] Mental Status Date Assessment Result Facility 03-01-2024 Cognitive function Cognitive Sta tus Patient at Baseline [facility] Work Phone: Clinical Notes 11-30-2021 [...] a right arm abscess. He presented to [facility] for a painful lump and pruritic rash on his right arm on 02/28/24. 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 His inguinal lymph node biopsy samples were reviewed by [facility] on 05/17, which was in agreement [...] Pathology: R inguinal LN Bx review by [facility], 05/17/[address] Bx, 04/20/2024 R [...] therapy. Previous biopsy slides were reviewed by [facility] pathology on 07/06/24 and supported diagnosis of [...] of dermal manifestations. He was Referred to [facility] dermatology. ID. Up to date with immunizations. [...] with the discharge instructions. Shannan Box MD [employer] Hematology documented in this encounter [facility] 08-21-2024 Instructions Marcie Guajardo RN - 08/21/2024 1:40 PM EST Thank you for entrusting your care to us at [facility]. Our clinic specifically focuses on the [...] eligible. YOUR PRIMARY TEAM Dr. Shannan Jimenez INFANT ROOM TEACHER - Nurse Practitioner Sherin Nash INFANT ROOM TEACHER - Nurse Practitioner Cynthia Dillard RN - Primary Nurse Duke Omer RN - Secondary Nurse [facility] is a teaching institution; you may also have visits that include medical students, residents, or fellows in training. CONTACT NUMBERS If you are having a medical emergency, please call 911 rather than our office. Clinic triage phone: [phone] (open 21/02) Clinic triage fax: [phone] - If you need medication refills for drugs that we have prescribed you, it is best to let us know during your office visit. If you need a refill before your next visit, please send a message via kaleo. Please alert us at least 7 days [...] we will contact you via phone or GO-SIMhart. With rare exception, we schedule visits shortly [...] healthcare team prior to our next availability. [facility] kaleo The medical information you will have access to within the My Chart program is limited (basic laboratory results, summary of medical history, visit history, and selected billing information). If you need results of a test that you can't find within kaleo, please feel free to call us and we will get back to you with that information. Please allow 24-48 hours for a response when using My Chart. Design A is a secure way to get access to your health records online. It will also allow you to communicate non-emergent concerns with your health care provider through email. Please note, kaleo is for non-urgent messages only. If you are reporting symptoms or changes in your condition, please call the clinic triage line at [phone]. For questions or concerns regarding kaleo access or technical dificulties, please call [phone] or toll free at . MEDICAL RECORDS The Release of Information ([facility]) area is staffed from 8:00 a.m. to 7:00 p.m. and is available for walk in requests from 8:00 a.m. to 4:30 p.m. [facility] is responsible for answering requests for copies of medical records from various requestors such as insurance companies, attorneys, hospitals and patients. Please note it can take up to 2 weeks to complete your request. [phone]; [phone] (fax). FINANCIAL CONCERNS Any questions regarding billing for services or insurance coverage concerns should be directed to the following departments: [facility] for insurance coverage questions or to inquire on eligibility for programs and creative solutions to better manage costs for services at [facility] call: [phone] [facility] for billing questions or questions regarding your statement call: [phone] DISABILITY/FMLA FORMS The forms should be given [...] Auto 2.74 0.83 - 3.57 K/uL Abs [place] Auto 0.67 0.24 - 0.93 K/uL Abs Eos Auto <0.04 0.00 - 0.48 K/uL Abs Baso Auto 0.04 0.00 - 0.09 K/uL documented in this encounter [facility] 07-06-2024 Note Request received for second opinion consultation by Sherin Nash, [employer]LEXA-INFANT ROOM TEACHER. 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 [facility] Comment on above: Performed By: #### L DO, CMPN #### [facility] (DEFAULT) [address] [place] [id number] 07-06-2024 Note Request received for second opinion consultation by Sherin Nash APRN-LEELA. Pt w/ history of CLL, skin bx of right elbow abscess c/w CLL involvement. Second opinion on an outside specimen. Clinical Information: Right elbow abscess. [facility] Comment on above: Performed By: #### L DO, CMPN #### [facility] (DEFAULT) [address] [place] [address] 05-29-2024 History of Present illness Narrative Images [...] a right arm abscess. He presented to [facility] for a painful lump and pruritic rash on his right arm on 02/28/24. 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 His inguinal lymph node biopsy samples were reviewed by [facility] on 05/17, which was in agreement [...] Pathology: R inguinal LN Bx review by [facility], 05/17/[address] Bx, 04/20/2024 R [...] of dermal manifestations. He was Referred to [facility] dermatology. Return to clinic: open We encouraged [...] with the discharge instructions. Shannan Box MD [employer] Hematology Reviewed After Visit Summary with patient and family. Discussed any medication changes and recommendations from physician. All questions answered. Patient and family encouraged to call with any additional questions. documented in this encounter [facility] 05-29-2024 Instructions Karen Omer RN - 05/29/2024 9:00 AM EDT YOUR PRIMARY TEAM Dr. Shannan Jimenez CNP - Nurse Practitioner Sherin Nash CNP - Nurse Practitioner Cynthia Dillard RN - Primary Nurse Duke Omer RN - Secondary Nurse Please contact our office if you develop a temperature of 100.4 or greater. CONTACT NUMBERS Clinic phone: [phone] Clinic fax: [phone] MEDICAL RECORDS The Release of Information ([facility]) area is staffed from 8:00 a.m. to 7:00 p.m. and is available for walk in requests from 8:00 a.m. to 4:30 p.m. [facility] is responsible for answering requests for copies of medical records from various requestors such as insurance companies, attorneys, hospitals and patients. Please note it can take up to 2 weeks to complete your request. [phone]; [phone] (fax). FINANCIAL CONCERNS Any questions regarding billing for services or insurance coverage concerns should be directed to our billing department at [phone]. DISABILITY FORMS This category includes any form [...] our team about the suggested recovery time. Brickflow is a secure way to get access to your health records online. The medical information you will have access to within the kaleo program is only selected portions of your [...] For non-emergent concerns, please send us a kaleo message but describe your issue fully. When sending a message to the provider, please know that these messages will be received and answered by the primary nurse practitioner. The nurse practitioner will consult your physician when needed. For questions or concerns regarding kaleo access or technical dificulties, please call [phone] or toll free at . __ documented in this encounter [facility] 04-30-2024 History of Present illness Narrative Images [...] multiple regions (CMS/HCC) Patient has appointment Dr. aHnley this week. He will be discharged from the office and continue to follow with his primary care physician. documented in this encounter [facility] 04-24-2024 Hospital Discharge instructions Patient Education 04/24/2024 [...] treatment? Where to find more information The [place] [employer]: www.cancer.org [place] [employer] Association: www.auanet.org Contact a health care [...] provider. Document Revised: 01/11/2022 Document Reviewed: 01/11/2022 Dr. Tariff Patient Education 2023 [employer] 04/24/2024 08:45:17 Benign Prostatic Hyperplasia Benign Prostatic [...] urethra. Follow these instructions at home: Take mlsx-rmf-ddpyjmh and prescription medicines only as told by [...] provider. Document Revised: 02/03/2022 Document Reviewed: 02/03/2022 Dr. Tariff Patient Education 2023 [employer] Follow Up Care 02/15/2024 10:43:30 With:Octavio EATON, Kassidy Merchant URYoung, URO Address: When: Unknown Comments:6 mos w/ PSA [facility] [place] 04-24-2024 Note Patient Education Oncology Prostate Cancer [...] Where to find more information ? The [place] [employer]: www.cancer.org ? [place] [employer] Association: www.auanet.org Contact a health care [...] of the rectum. (more content not included)... [facility] 04-16-2024 History of Present illness Narrative Images [...] History of hernia repair [place] Prostate cancer ([facility]/HCC) Social History Tobacco Use Smoking status: Never [...] seroma were discussed. documented in this encounter [facility] 03-19-2024 Evaluation note Diagnosis Onset Date Resolution [...] involving skin acute May 10, 2024 8:41am [facility] Work Phone: 1(191) 462-426608-01-2024 Discharge summary Author Antony Thompson [facility] March 01, 2024 4:05pm Note Date/Time March 01, 2024 4:0 6pm [facility] [address] [place] [address] Discharge Summary Signed Patient: Mily Ibrahim MR#: [id number] : 1955 Acct:[id number] Age/Sex: 68 / M Adm Date: 4 Loc: Room: [address] [place] [address]: Antony Thompson DO Copies to: Qiana Andre INFANT ROOM TEACHER Antony Thompson DO~ Providers Date of Admission: [...] OR I&D right elbow abscess(Left) - Enoch Han, DO Discharge Plan Discharge Plan Patient Disposition: [...] needed. This appointment will be in the [place] office. The address is [address] [place] [address]) Exam Physical Exam Vital Signs: Temp Pulse [...] signed by Antony Thompson DO> 03/01/24 1605 [facility] Work Phone: 1(800) 652-367108-01-2024 Progress note Author Enoch Han [facility] March 01, 2024 8:12am Note Date/Time March 01, 2024 8:0 4am [facility] [address] [place] [address] Orthopedic Progress Note Signed Patient: Mily Ibrahim MR#: [id number] : 1955 Acct:[id number] Age/Sex: 68 / M Adm Date: 4 Loc: 4N Room: 6Q7577-5 Type: ADM IN Attending Dr: nAtony Thompson DO Copies to: ~ Date of [...] signed by Enoch Han DO> 03/01/24 0812 [facility] Work Phone: 1(284) 557-274907-31-2024 Progress note Author Antony Thompson [facility] February 29, 2024 12:36pm Note Date/Time February 29, 2024 12:3 6pm [facility] [address] [place] [address] Hospitalist Progress Note Signed Patient: Mily Ibrahim MR#: [id number] : 1955 Acct:[id number] Age/Sex: 68 / M Adm Date: 4 Loc: Room: [address] [place] [address] Type: ADM IN Attending Dr: Antony Thompson [...] 02/29/24 11:27 02/29/24 11:27 02/29/24 11:27 02/29/24 11:02/29/24 11:02/29/24 11:02/27/24 23:45 Narrative: General: Awake alert, [...] Arm mass: Plan: ? Ultrasound results from [facility] noted in the H&P ? CT [...] ? Patient's chest x-ray was normal from [place] ? Continue vancomycin ? Orthopedic to take [...] signed by Antony Thompson, > 02/29/24 1236 [facility] Work Phone: 1(188) 899-696807-30-2024 Progress note Author Antony Thompson [facility] February 28, 2024 3:37pm Note Date/Time February 28, 2024 3:38 pm [facility] [address] [place] [address] Hospitalist Progress Note Signed Patient: Mily Ibrahim MR#: [id number] : 1955 Acct:[id number] Age/Sex: 68 / M Adm Date: 4 Loc: Room: [address] [place] [address] Type: ADM IN Attending Dr: Antony Thompson [...] ? Patient's chest x-ray was normal from [place] ? Start vancomycin after blood cultures were [...] <Electronically signed by Antony Thompson DO> 02/28/24 1538 [facility] Work Phone: 1(752) 975-755307-30-2024 Consult note Author Ata Celestin [facility] February 28, 2024 10:37am Note Date/Time February 28, 2024 10:2 2am [facility] [address] [place] [address] Orthopedic Consult Note Signed Patient: Mily Ibrahim MR#: [id number] : 1955 Acct:[id number] Age/Sex: 68 / M Adm Date: 4 Loc: Room: 0A5829-8 Type: ADM IN Attending Dr: Antony Thompson DO Copies to: NON STAFF DO Antony Ruiz DO~ History of Present Illness HPI Consult date: 02/28/2024 Requesting provider: Antony Thompson DO History of present illness: Mumtaz is a nbtrv-fzrm-wkytnucr 68-year-old male who presents to [facility] with a right medial brachial mass. He states that over 2 weeks ago he was working on [employer] whenever he started to feel soreness in that area. He does admit to a scratch on the dorsal aspect of his forearm which healed nicely around the same time. The inner elbow became more swollen and red and painful and he was started on antibiotics by his PCP. Antibiotics did not show any improvement andhe was sent to [place] emergency department for evaluation. An ultrasound was performed at [place] which showed there was a hypoechoic avascular collection adjacent to the basilic vein in the medial aspect of his distal biceps. This measured 1.5 cm. There is also note of a complex mass in the right axilla measuring 3.8 cm. He was sent to [facility] for further evaluation after that. General surgery was consulted and deferred further treatment to orthopedic surgery. He admits to pain in the area. Denies any numbness or tingling. Has had some possible chills but none currently. Denies any axillary pain. Can move elbow and shoulder without issue. [facility] Medical History Sleep apnea treated with continuous [...] % (Auto) 64.2, Lymph % (Auto) 25.2, [place] % (Auto) 8.9, Eos % (Auto) 1.4, Baso % (Auto) 0.3, Nucleat RBC Rel Count 0.1, Neut # (Auto) 9.3 H, Lymph # (Auto) 3.7, [place] # (Auto) 1.3 H, Eos # (Auto) [...] 2.2, Albumin/Globulin Ratio 1.5 H & H 07/30/24 Range/Units 06:13 Hgb 14.4 (13.0-17.0) g/dL Hct [...] signed by Ata Celestin DO> 02/28/24 1037 [facility] Work Phone: 1(500) 386-928307-30-2024 Progress note Author Britton Myers [facility] February 28, 2024 8:56am Note Date/Time February 28, 2024 8:56 am [facility] [address] [place], [place] [address] Progress Note Signed Patient: Mily Ibrahim MR#: [id number] : 1955 Acct:[id number] Age/Sex: 68 / M Adm Date: 4 Loc: 4N Room: 0R6452-1 Type: ADM IN Attending Dr: Antony Thompson [...] signed by DO Britton Myers> 02/28/24 0856 [facility] Work Phone: 1(927) 522-807707-29-2024 History and physical note Author Antony Thompson [facility] February 27, 2024 9:06pm Note Date/Time February 27, 2024 8:58 pm [facility] [address] [place] [address] Hospitalist H&P Signed Patient: Mily Ibrahim MR#: [id number] : 1955 Acct:[id number] Age/Sex: 68 / M Adm Date: 4 Loc: 4N Room: 5D3689-3 Type: ADM IN Attending Dr: Antony Thompson [...] Roughly 10 days ago he was outside [employer] yard working on his grandsons [employer] and states he was resting his arm [...] night sweats with this. He arrived at [place] ER earlier this afternoon where an ultrasound of his right arm was obtained, ultrasound was negative for DVT or superficial thrombus. There was a hypoechoicavascular collection adjacent to the basilic vein in the medial aspect of his distal biceps. This measured 1.5 cm. There is also note of a complex mass in the right axilla measuring 3.8 cm. He was subsequently transferred to [facility] for further evaluation and treatment. Blood work from [place] emergency room was notable for a white blood cell countof 14.7, hemoglobin of 15.5, platelets 210. His BNP has sodium of 136, potassium 4.2, chloride 102, carbon oxide 28.4, BUN 11 and creatinine 1.1. Calcium 8.7, remainder of hepatic function panel was normal. Review of Systems Review of Systems All other systems reviewed & are negative unless noted below or in HPI [facility] Medical History Sleep apnea treated with continuous [...] Allergies Allergies No Known Allergies Allergy (Verified 07/28/24 09:08) Home Medications tamsulosin 0.4 mg capsule [...] Room Air 02/27/24 19:28 02/27/24 19:28 02/27/24 19:02/27/24 19:02/27/24 19:02/27/24 20:45 Narrative: General: Awake [...] cultures ?Patient's chest x-ray was normal from [place] ? Start vancomycin after blood cultures were [...] by Antony Thompson DO> 02/27/242105 [facility] Work Phone: 1(951) 974-336504-30-2024 Hospital Discharge instructions Patient Education 11/29/2023 08:42:05 [...] treatment? Where to find more information The [place] [employer]: www.cancer.org [place] U[employer] Association: www.auanet.org Contact a health care [...] provider. Document Revised: 01/11/2022 Document Reviewed: 01/11/2022 Dr. Tariff Patient Education 2022 [employer] 11/29/2023 08:42:03 Benign Prostatic Hyperplasia Benign Prostatic [...] urethra. Follow these instructions at home: Take qbdu-xcz-dljcana and prescription medicines only as told by [...] provider. Document Revised: 02/03/2022 Document Reviewed: 02/03/2022 Dr. Tariff Patient Education 2022 [employer] 11/29/2023 08:41:58 Erectile Dysfunction Erectile Dysfunction Erectile [...] Follow these instructions at home: Medicines Take npro-ahf-cvidvlv and prescription medicines only as told by [...] provider. Document Revised: 10/14/2021 Document Reviewed: 10/14/2021 [place] Patient Education 2022 [employer] 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 Patient states he was sent here to have the impacted cerumen cleaned out from his ear. The right ear was rinsed with warm water and impacted cerumen was cleared. Right ear without erythema or bulging TM, no signs of infection present. Hearing grossly intact. Patient is to avoid using Q-tips in the ears, he was instructed to use tzkq-iai-liumoml Debrox as instructed on the box as needed for impacted cerumen. Patient was told to follow-up with his primary care provider if symptoms persist. fflick Other 06-02-2023 Procedure [facility]04-26-2023 Hospital Discharge instructions Patient Education 11/24/2022 09:46:19 [...] urethra. Follow these instructions at home: Take knme-bqx-jfcallf and prescription medicines only as told by [...] away. Do not drive yourself to the [facility]. Summary Benign prostatic hyperplasia (BPH) is an [...] provider. Document Revised: 02/03/2022 Document Reviewed: 02/03/2022 Dr. Tariff Patient Education 2022 [employer] Follow Up Care 10/06/2022 08:16:20 With:Octavio EATON, SCOTT Tello, URO Address: [address], [place] [phone] When:11/25/2023 Comments:PSA [facility] 05-02-2022 Hospital Discharge instructions Patient Education [...] urethra. Follow these instructions at home: Take dfcn-grl-sepdfoz and prescription medicines only as told by [...] 07/18/2006 Document Revised: 06/12/2019 Document Reviewed: 08/22/2017 Dr. Tariff Patient Education 2020 [employer] Follow Up Care 06/03/2021 11:05:20 With:Keith Mena MD, Annette Vidal, URO Address: [facility] [address], [place] [address]- When:11/30/2022 Comments:with PSA [facility] Evaluation + Plan note Future Appointments Appointment Date:12/06/2022 08:15:00 AM Scheduled Provider:Annette Parker Jr., MD Location:[facility] Appointment Type:URO Office Visit Diagnostic Tests Pending * PSA Total 11/30/21 [facility] Evaluation + Plan note Future Appointments Appointment Date:11/30/2023 08:00:00 AM Scheduled Provider:Kassidy Cunningham MD Location:[facility] Appointment Type:URO Office Visit Diagnostic Tests Pending * PSA Total 11/24/22 [facility] evaluation + Plan note Future Appointments Appointment Date:10/24/2024 08:00:00 AM Scheduled Provider:Kassidy Cunningham MD Location:[facility] Appointment Type:URO Office Visit Diagnostic Tests Pending * PSA Total 04/24/24 [facility] evaluation noteNo assessment information available [facility] Work Phone: evaluation note* Diagnosis Onset Date Resolution Status Cellulitis of right upper arm noneactive Abscess of arm, right acute Arm mass acute BPH (benign prostatic hyperplasia) acute [facility] Work Phone: evaluation note* Diagnosis Onset Date Resolution Status Cellulitis of right upper arm noneactive Abscess of arm, right resolv ed Arm mass resolved Encounter for removal of sutures acute Other specified postprocedural states acute Cellulitis of right upper arm noneactive 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[place] Encounter for coordination of complex care acute History of abscess of skin and subcutaneous tissue acute 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[place] Encounter for coordination of complex care acute History of abscess of skin and subcutaneous tissue acute [facility] Work Phone: Evaluation note* Diagnosis Cutaneous B-cell lymphoma- Primary Other malignant lymphomas, unspecified site, extranodal and solid organ sites CLL (chronic lymphocytic leukemia) Chronic lymphoid leukemia, without mention of having achieved remission Genetic anomalies of leukocytes [facility] Inguinal adenopathy- Primary Enlargement of lymph nodes Cutaneous B-cell lymphoma (CMS/HCC) [facility] 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 [facility] Diagnosis CLL (chronic lymphocytic leukemia)- Primary Chronic lymphoid leukemia, without mention of having achieved remission [facility] Author Janene Crump [facility] December 31, 2022 9:46am Note Date/Time December 31, 2022 9:46a m [facility] [address] [place] [address] Gastroenterology H&P Signed Patient: Mily Ibrahim MR#: [id number] : 1955 Acct:[id number] Age/Sex: 67 / M Adm Date: 3 Loc: Room: Type: [facility] Attending Dr: Janene Crump MD Copies [...] Crump M.D. Documented By: Janene Crump MD 12/31/2206 Signed By: <Electronically signed by Janene Crump MD> 12/31/22 9717 [facility] Work Phone: History general Narrative - Reported* Type Description Date Surgical History polyp removal from sinus Surgical History tonsillectomy [employer] [facility] [employer] Other Hospital course Narrative No data available for this section [facility] Hospital Discharge instructions Additional Instructions DISCHARGE INSTRUCTIONS [...] years. -Follow up with PCP. -Office number [phone]. [facility] Work Phone: Progress note No data available for this section [facility] reason for referral (narrative)* Consultation (Urgent) - New Request Specialty Diagnoses / Procedures Referred By Missy esquivel Referred To Contact Dermatology Diagnoses CLL (chronic lymphocytic leukemia) Shannan Box MD [address] [place] [address] [address] [place] [address] Referral ID Status Reason Start Date Expiration Date V isits Requested Visits Authorized [id number] New Request 05/29/2024 06/23/2025 1 1 * Consultation (Routine) - New Request Specialty Diagnoses / Procedures Referred By Missy esquivel Referred To Contact Clinical Pathology/Laboratory Medicine Diagnoses CLL (chronic lymphocytic leukemia) Sherin Nash APRN-INFANT ROOM TEACHER [address] [place] [address], [place] [address] Referral ID Status Reason Start Date Expiration Date V isits Requested Visits Authorized [id number] New Request 05/29/2024 06/23/2025 1 1 Electronically signed by Sherin Nash METHODS ANALYST DATA PROCESSING-INFANT ROOM TEACHER at 05/29/2024 9:56 AM EDT * Consultation (Routine) - New Request Specialty Diagnoses / Procedures Referred By Missy esquivel Referred To Contact Clinical Pathology/Laboratory Medicine Diagnoses Cutaneous B-cell lymphoma Sherin Nash, METHODS ANALYST DATA PROCESSING-INFANT ROOM TEACHER [address] [place] [address], [place] [address] Referral ID Status Reason Start Date Expiration Date V isits Requested Visits Authorized [id number] New Request 05/29/2024 06/23/2025 1 1 Electronically signed by Sherin Nash METHODS ANALYST DATA PROCESSING-INFANT ROOM TEACHER at 05/29/2024 9:54 AM EDT [facility] Chief Complaint and Reason for Visit [...] February 27, 2024 End: March 01, 2024 ARON SilvaC Primary Care Provider Active Start: February 27, [...] 2024 End: March 19, 2024 Qiana Andre GUEST ROOM INSPECTOR-C Primary Care Provider Active Start: March 19, 2024 End: March 19, 2024 Team Status: Inactive Member Role Status Dates Qiana Andre GUEST ROOM INSPECTOR-C Primary Care Provider Active Start: March 29, 2024 End: March 29, 2024 Maria Ines Hanley MD Attending Provider Active Start: March 29, 2024 End: March 29, 2024 Enoch Han DO Referring Provider Active St art: March 29, 2024 End: March 29, 2024 Team Status: Active Member Role Status Dates Qiana Andre GUEST ROOM INSPECTOR-C Primary Care Provider Active Start: April 12, 2024 Maria Ines Hanley MD Attending Provider Active Start: April 12, 2024 Enoch Han DO Referring Provider Active St art: April 12, 2024 Team Status: Inactive Member Role Status Dates Qiana Andre GUEST ROOM INSPECTOR-C Primary Care Provider Active Start: April 12, 2024 End: April 12, 2024 Maria Ines Hanley MD Attending Provider Active Start: April 12, 2024 End: April 12, 2024 Team Status: Inactive Member Role Status Dates Qiana Andre GUEST ROOM INSPECTOR-C Primary Care Provider Active Start: April 17, 2024 End: April 17, 2024 Jered Leon MD Attending Provider Active Sta rt: April 17, 2024 End: April 17, 2024 Team Status: Inactive Member Role Status Dates Qiana Andre GUEST ROOM INSPECTOR-C Primary Care Provider Active Start: April 20, 2024 End: April 20, 2024 Jered Leon MD Attending Provider Active Sta rt: April 20, 2024 End: April 20, 2024 Cartridge Loader Relationship Specialty Start Date End Date Qiana Andre [address] [place] [id number] PCP - General Certified Nurse Practitioner 05/29/24 Shannan Box MD [address] [place] [address] Oncologist Hematology 05/24/24 Maria Ines Hanley MD [address] [place] [address] Hematology 05/24/24 Team Status: Inactive Member Role Status Dates Qiana Andre GUEST ROOM INSPECTOR-C Primary Care Provider Active Start: May 03, 2024 End: May 03, 2024 Maria Ines Hanley MD Attending Provider Active Start: May 03, 2024 End: May 03, 2024 Team Status: Inactive Member Role Status Dates Qiana Andre GUEST ROOM INSPECTOR-C Primary Care Provider Active Start: May 10, 2024 End: May 10, 2024 Maria Ines Hanley MD Attending Provider Active Start: May 10, 2024 End: May 10, 2024 Team Status: Active Member Role Status Dates Qiana Andre GUEST ROOM INSPECTOR-C Primary Care Provider Active Start: May 10, 2024 Maria Ines Hanley MD Attending Provider Active Start: May 10, 2024 Enoch Han DO Referring Provider Active St art: May 10, 2024 Team Status: Inactive Member Role Status Dates Qiana Andre GUEST ROOM INSPECTOR-C Primary Care Provider Active Start: June 11, 2024 End: June 11, 2024 Hector Ledbetter MD Attending Provider Active Star t: June 11, 2024 End: June 11, 2024 Cartridge Loader Relationship Specialty Start Date End Date Burton Arita MD [address] [place] [address] PCP - General Family Medicine 04/16/24 Cartridge Loader Relationship Specialty Start Date End Date Qiana Andre [address] [place] [address] PCP - General Certified Nurse Practitioner 05/29/24 [place] [address] [place] [address] [address] [place] [phone] Oncologist Hematology 05/24/24 Maria Ines Hanley MD [address] [place] [address] Hematology 05/24/24 Goals (unrecognized section and content) Goals may be documented in a n alternate section (unrecognized sect ion and content) No Status Records FoundNo Status Records FoundNo Status Records FoundNo Status Records FoundNo Status Records FoundNo Status Records Found INFORMATION SOURCE (unrecogn ized section and content) DATE CREATED AUTHOR 10/05/2022 [facility] DATE CREATED AUTHOR AUTHOR'S ORGANIZ ATION 04/30/2024 [facility] EPIC DATE CREATED AUTHOR AUTHOR'S ORGANIZ ATION 05/21/2024 [facility] DATE CREATED AUTHOR AUTHOR'S ORGANIZ ATION 08/13/2024 [facility] DATE CREATED AUTHOR AUTHOR'S ORGANIZ ATION 08/28/2024 [facility] DATE CREATED AUTHOR AUTHOR'S ORGANIZ ATION 10/22/2024 [facility] REASON FOR VISIT (unrecogniz ed section and content) Reason Comments New Patient Specialty Diagnoses / Procedures Referred By Missy t Referred To Contact Hematology & Oncology Diagnoses Cutaneous B-cell lymphoma Maria Ines Hanley MD [address] [place] [address] [facility] [address] [place] [address] Referral ID Status Reason Start Date Expiration Date V isits Requested Visits Authorized [id number] New Request 05/23/2024 06/17/2025 1 1 Reason [...] BE BASED ON THE PRIMARY CLINICAL RECORDS. [employer] [facility]. provides no warranty or guarantee of the accuracy or completeness of information in this document.
[2024-10-25 04:11] LABS: PSA, Free 0.41 ng/mL
== END 2024-10-24 09:26 | disposition home or self-care (01) ==
LOC: LAB 09:27
PROVIDERS: PCP Nurse Practitioner; Visit Provider Urology
DX: R97.20 Elevated prostate specific antigen [PSA] (principal)
CPT/HCPCS: 36415; 84153; 84154